=== PATIENT | female | born 1950 | race Caucasian/White ===

== ENCOUNTER → 2020-03-24 08:31 | Outpatient (CLI) | payer MEDICARE, SELFPAY ==
[2020-03-24 10:25] LABS: Hemoglobin A1C% w Est Avg Glu 7.6 % (4.0-6.0)
[2020-03-24 10:38] LABS: Alanine Aminotransferase 17 IU/L (<35); Albumin 4.4 g/dL (3.5-5.0); Albumin Globulin Ratio 1.6 (1.0-2.8); Alkaline Phosphatase 91 U/L (38-126); Aspartate Aminotransferase 20 IU/L (14-36); BUN Creatinine Ratio 27.8 (6-22); Bilirubin Total 0.3 mg/dL (0.2-1.3); Blood Urea Nitrogen 15 mg/dL (7-17); Calcium 9.5 mg/dL (8.4-10.2); Carbon Dioxide 22 mmol/L (22-32); Chloride 104 mmol/L (98-107); Cholesterol 159 mg/dL (140-199); Estimated Glomerular Filt Rate > 60.0 mL/min (>60); Globulin 2.8 g/dL (1.7-4.1); Glucose 176 mg/dL (80-110); HDL Cholesterol 34 mg/dL (40-60); HEMOLYSIS < 15 (0-50); LDL Cholesterol Calculated 105 mg/dL (<100); Potassium 4.2 mmol/L (3.4-5.1); Sodium 137 mmol/L (137-145); Total Protein 7.2 g/dL (6.3-8.2); Triglycerides 99 mg/dL (35-150)
[2020-03-24 10:52] LABS: Free T4, Direct Thyroxine 1.47 ng/dL (0.78-2.19)
[2020-03-24 11:05] LABS: Thyroid Stimulating Hormone 3.85 uIU/mL (0.47-4.68)
[2020-03-24 23:07] LABS: Triiodothyronine T3 Total 72 ng/dL (71-180)
== END ==
PROVIDERS: Referring Provider Internal Medicine; Visit Provider Internal Medicine
DX: E11.9 Type 2 diabetes mellitus without complications (principal); E66.9 Obesity, unspecified; E03.9 Hypothyroidism, unspecified
CPT/HCPCS: 36415; 80053; 80061; 83036; 84439; 84443; 84480

== ENCOUNTER → 2020-04-04 11:36 | Outpatient (CLI) | payer MEDICARE, SELFPAY ==
--- NOTE | 2020-04-04 11:39 | DI.RAD.S_ITS ---
PROCEDURE: XR HIP W PEL IF DONE LT MIN 4V INDICATIONS: low back pain, bilateral hip pain TECHNIQUE: AP pelvis with lateral view(s) of the right and left hip(s). COMPARISON: None. FINDINGS: Bones: No fractures or dislocations. Pelvic ring appears intact. No suspicious bony lesions. Mild osseous hypertrophy noted in the hips bilaterally. Soft tissues: The visualized bowel gas pattern is normal. No suspicious soft tissue calcifications. IMPRESSION: Mild bilateral hip osteoarthritis. Dictated by: Keeley Ash MD, PhD on 04/04/2020 at 16:50 Approved by: Keeley Ash MD, PhD on 04/04/2020 at 16:51
--- NOTE | 2020-04-04 11:39 | DI.RAD.S_ITS ---
PROCEDURE: XR LUMBAR SPINE 2-3V INDICATIONS: LOW BACK PAIN, BILATERAL HIP PAIN TECHNIQUE: 3 views of the lumbar spine were acquired. COMPARISON: None. FINDINGS: Bones: 5 [id number] vertebrae are present. There is grade 1 L4-L5 degenerative anterolisthesis. No vertebral body compression fractures. No suspicious bony lesions. Moderate L5-S1 degenerative changes. Mild L1-L2, L2-L3, through L4 and L4-L5 degenerative changes. Moderate L3-L4, L4-L5 and L5-S1 facet arthropathy. Soft tissues: Overlying bowel gas pattern is normal. No suspicious soft tissue calcifications. IMPRESSION: 1. Grade 1 L4-L5 degenerative spondylolisthesis. 2. Multilevel degenerative disease. 3. Multilevel facet arthropathy. 4. No fracture. No acute osseous lesion. If symptoms and/or clinical suspicion for pathology persists, evaluation with MRI may be helpful for further assessment. Dictated by: Keeley Ash MD, PhD on 04/04/2020 at 16:51 Approved by: Keeley Ash MD, PhD on 04/04/2020 at 16:52
== END ==
PROVIDERS: Referring Provider Internal Medicine; Visit Provider Internal Medicine
DX: M54.5 Low back pain (principal); M25.551 Pain in right hip; M25.552 Pain in left hip; M16.0 Bilateral primary osteoarthritis of hip; M43.16 Spondylolisthesis, lumbar region; M51.36 Other intervertebral disc degeneration, lumbar region; M47.816 Spondylosis without myelopathy or radiculopathy, lumbar region; M47.817 Spondylosis without myelopathy or radiculopathy, lumbosacral region
CPT/HCPCS: 72100; 73522

== ENCOUNTER → 2020-06-16 13:02 | Outpatient (CLI) | payer MEDICARE, SELFPAY ==
[2020-06-16 14:43] LABS: Hemoglobin A1C% w Est Avg Glu 7.8 % (4.0-6.0)
[2020-06-16 15:04] LABS: Alanine Aminotransferase 18 IU/L (<35); Albumin 4.1 g/dL (3.5-5.0); Albumin Globulin Ratio 1.6 (1.0-2.8); Alkaline Phosphatase 96 U/L (38-126); Aspartate Aminotransferase 19 IU/L (14-36); BUN Creatinine Ratio 20.8 (6-22); Bilirubin Total 0.5 mg/dL (0.2-1.3); Blood Urea Nitrogen 15 mg/dL (7-17); Calcium 9.3 mg/dL (8.4-10.2); Carbon Dioxide 25 mmol/L (22-32); Chloride 103 mmol/L (98-107); Cholesterol 153 mg/dL (140-199); Estimated Glomerular Filt Rate > 60.0 mL/min (>60); Globulin 2.5 g/dL (1.7-4.1); Glucose 226 mg/dL (80-110); HDL Cholesterol 48 mg/dL (40-60); HEMOLYSIS < 15 (0-50); LDL Cholesterol Calculated 75 mg/dL (<100); Potassium 4.3 mmol/L (3.4-5.1); Sodium 138 mmol/L (137-145); Total Protein 6.6 g/dL (6.3-8.2); Triglycerides 148 mg/dL (35-150)
[2020-06-16 15:12] LABS: Free T4, Direct Thyroxine 1.29 ng/dL (0.78-2.19)
[2020-06-16 15:26] LABS: Thyroid Stimulating Hormone 1.99 uIU/mL (0.47-4.68)
[2020-06-17 07:13] LABS: Triiodothyronine T3 Total 61 ng/dL (71-180)
== END ==
PROVIDERS: PCP Internal Medicine; Referring Provider Internal Medicine; Visit Provider Internal Medicine
DX: E66.9 Obesity, unspecified (principal); E03.9 Hypothyroidism, unspecified; E11.9 Type 2 diabetes mellitus without complications
CPT/HCPCS: 36415; 80053; 80061; 83036; 84439; 84443; 84480

== ENCOUNTER → 2020-06-30 13:07 | Outpatient (CLI) | payer MEDICARE, SELFPAY | PROVIDERS: PCP Internal Medicine; Referring Provider Internal Medicine; Visit Provider Internal Medicine | DX: M85.88 Other specified disorders of bone density and structure, other site (principal); Z78.0 Asymptomatic menopausal state; E11.9 Type 2 diabetes mellitus without complications | CPT/HCPCS: 77080 ==

== ENCOUNTER → 2020-08-16 13:47 | Outpatient (CLI) | payer MEDICARE, SELFPAY ==
[2020-08-16 15:12] LABS: Microalbumin Urine Random < 0.6 mg/dL (0-1.6)
[2020-08-16 15:16] LABS: Creatinine Urine Random 41.7 mg/dL
== END ==
PROVIDERS: PCP Internal Medicine; Referring Provider Internal Medicine; Visit Provider Internal Medicine
DX: E11.9 Type 2 diabetes mellitus without complications (principal)
CPT/HCPCS: 82043; 82570

== ENCOUNTER 2020-09-01 11:15 | Outpatient (RCR) | payer MEDICARE, SELFPAY ==
--- NOTE | 2020-05-30 17:55 | PT.OIE ---
Current Diagnoses Pain in unspecified hip (05/30/20) Stiffness of unspecified hip, not elsewhere classified (05/30/20) Low back pain (05/30/20) Muscle weakness (generalized) (05/30/20) Visit Care Team Role Provider Type Gregg Hawthorne MD Attending Provider Physician Primary Care Provider Referring Provider Specialty: Wound Care Address: [address] [place] [address], [id number] Email: [email or web address] Initial Evaluation PT-OP-A Visit Information Start: 05/30/20 16:19 Freq: Status: Active Protocol: Document 05/30/20 12:15 DCW (Rec: 05/30/20 16:45 DCW [id number]) Out-Patient Physical Therapy Visit Information Visit Information Visit Type Initial Evaluation Visit Start Time 12:15 Visit Stop Time 12:45 Total Visit Minutes 30 Visit Number 1 Number of MILLER WOOD [employer]OUR Visits 0 Evaluation Information Evaluation Date 05/30/20 PT-OP-B Current Condition Start: 05/30/20 16:19 Freq: Status: Active Protocol: Document 05/30/20 12:15 DCW (Rec: 05/30/20 16:45 DCW [id number]) Current Condition History of Current Condition Onset Date Multi-year history, worsening in last year Current Complaints hip and low back pain, stiffness, muscle tightness History of Current Condition Pt is a 70 year old female presenting to skilled therapy with a multi-year history of low back and bilateral hip pain. Pt notes that over the last year, her pain has been worsening, she feels it mainly along the iliac crest along my back, and occasionally radiating down my legs. Reports her hip muscles had been really tight, but reports that about three weeks ago, so started a new medication from her doctor, which she can't remember the name of, and he told her that it was to help her muscles relax, but after researching it on her own, she found that it blocks pain receptors in the brain. Since starting this medication, she has been doing a lot better, but still experiences a lot of tightness in her muscles and stiffness in her hips. Pt reports that she typically has to take a break after walking 25 minutes, she feels like I need to just stop and stretch out if I go any longer than that. Pt also notes that she was diagnosed with a leg length discrepancy, reporting her left leg is shorter than her right. Pt was given orthortics to lift her left heel, but she feels that they are wearing down, and she is hoping she can get a new pair. Prior Treatments and Tests Lumbar X-ray:IMPRESSION: 1. Grade 1 L4-L5 degenerative spondylolisthesis. 2. Multilevel degenerative disease. 3. Multilevel facet arthropathy. 4. No fracture. No acute osseous lesion. If symptoms and/or clinical suspicion for pathology persists, evaluation with MRI may be helpful for further assessment. Per Keeley Ash MD, PhD on 04/04/2020 Hip x-ray: IMPRESSION: Mild bilateral hip osteoarthritis. Per Keeley Ash MD, PhD on 04/04/2020 Treatment Goals Patient/Caregiver Goals I want to get back to walking more. I use to go for a walk with my dog, and could walk 2- 3 hours without resting. Now, this was 10-15 years ago, so I don't think I'll get fully back to that, but more than the 25 minutes I can do right now. PT-OP-C Subjective Start: 05/30/20 16:19 Freq: Status: Active Protocol: Document 05/30/20 12:15 DCW (Rec: 05/30/20 16:45 DCW [id number]) OP-PT Subjective Patient Comments Patient Comments This new medication has been pretty helpful, I'm just worried that if it is blocking the pain signals to my brain, it's bad for me. Don't we need some pain signals? Patient Reported Progress Improving Patient Questionnaires Lower Extremity Functional Scale LEFS Score 43/80 = 53.75% OP-PT Pain Assessment Pain Assessment Grid Paper Pain Assessment Grid Completed Yes: multiple locations, see chart PT-OP-F Manual Assessment Start: 05/30/20 16:19 Freq: Status: Active Protocol: Document 05/30/20 12:15 DCW (Rec: 05/30/20 16:45 DCW [id number]) Manual Assessments Soft Tissue Assessment Soft Tissue Mobility Assessment Severe hypertonia with tenderness to palpation 4/4: Palpation not allowed: Bilateral ITB Moderate hypertonia with tenderness to palpation 3/4: Wincing and withdraw: Right QL , bilateral psoas Moderate hypertonia with tenderness to palpation 2/4: pain with wincing: Left QL, bilateral piriformis, bilateral lumbar paraspinals Joint Mobility Assessment Joint Mobility Assessment PROM of hip WNL, PT-OP-J Posture/Palpation/Skin Start: 05/30/20 16:19 Freq: Status: Active Protocol: Document 05/30/20 12:15 DCW (Rec: 05/30/20 16:45 DCW [id number]) Posture Evaluation Comments Posture Comments Left leg length, ASIS to Medial malleolus: 87 cm Right leg length, ASIS to Medial malleolus: 90 cm PT-OP-L Special Tests Start: 05/30/20 16:19 Freq: Status: Active Protocol: Document 05/30/20 12:15 DCW (Rec: 05/30/20 16:45 DCW [id number]) Special Tests Lumbar Spine Special Tests IGOR Test Results Positive left ipsilateral anterior hip pain Straight Leg Raise Test Results HS tightness at 50? bilateral Hip Special Tests Piriformis Test Results Positive bilaterally Navya's test Test Results Positive bilaterally PT-OP-M Strength Start: 05/30/20 16:19 Freq: Status: Active Protocol: Document 05/30/20 12:15 DCW (Rec: 05/30/20 17:54 DCW [id number]) Hip Strength Hip Manual Muscle Testing Right Flexion (L2) 5 Normal Extension (S1) 4 Good Abduction 5 Normal Adduction 5 Normal Left Flexion (L2) 5 Normal Extension (S1) 4 Good Abduction 5 Normal Adduction 5 Normal Knee Strength Knee Manual Muscle Testing Right Flexion (S2) 5 Normal Extension (L3) 5 Normal Left Flexion (S2) 5 Normal Extension (L3) 5 Normal PT-OP-Q Treatments Start: 05/30/20 16:19 Freq: Status: Active Protocol: Document 05/30/20 12:15 DCW (Rec: 05/30/20 17:54 DCW [id number]) Self-Care/Home Management Treatment Education Patient Education Home Exercise Program Other Education Provide demonstration and hand -out regarding Piriformis stretch for HEP PT-OP-T Assessment and Plan Start: 05/30/20 16:19 Freq: Status: Active Protocol: Document 05/30/20 12:15 DCW (Rec: 05/30/20 17:54 DCW [id number]) Physical Therapy Assessment Rehab Potential Rehabilitation Potential Excellent Evaluation Complexity Number of Personal Factors/Comorbidities 1-2 Number of Body Systems Impaired 1-2 Clinical Presentation at Evaluation Stable Impairments Impairments Activity Tolerance,Functional Activities,Pain,Posture,ROM, Soft Tissue Mobility,Strength Goals Three Impairment Hip stiffness: SLR limited to 50? Social Media Campaign Manager Goal (LTG) SLR to >80? bilaterally with no low back pain LTG Duration 07/30/20 Two Impairment Pt exhibits signs of lower cross syndrome Social Media Campaign Manager Goal (LTG) Lower cross syndrome is more an pattern of symptoms ( hypertonia in hip flexors/ lumbar paraspinals, weakness in core/hip extensors). Pt will exhibit 4+/5 in hip fextensors and TrA. Pt will additionally demonstrate a decrease in muscle tone of psoas to mild levels LTG Duration 07/30/20 One Impairment Pt does not have an appropriate home exercise program Short Term Goal (STG) Pt to be independent and compliant with an appropriate HEP STG Duration 06/30/20 Assessment Summary Assessment Pt presents with stiffness in her hips and low back, seemingly as a result of protective spasming secondary to the degenerative changes in her lumbar spine. 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 Pt also exhibits signs of a leg length discrepancy, and may require a new lift in her left shoe, due to wearing down of her previous orthotic. Physical Therapy Plan Frequency and Duration Frequency of Treatment 2x/Week Duration of Treatment 10 weeks Plan of Care Start Date 05/30/20 Plan of Care End Date 08/08/20 Therapeutic Interventions Therapeutic Interventions Home Exercise Program,Joint Mobilizations,Manual Therapy, Patient/Caregiver Education, Self-Care/Home Management,Soft Tissue Mobilization, Therapeutic Activities, Therapeutic Exercises Modalities Cold Pack/Ice Massage,Electric Stimulation,Hot Packs, Ultrasound Next Visit Focus/Plan Next Note Type Treatment Note Next Visit Plan Flexibility, strengthening, Manual therapy
--- NOTE | 2020-05-30 17:55 | PT.OPPOC ---
Physical, Occupational & Speech Therapy At [facility] Current Diagnoses Pain in unspecified hip (05/30/20) Stiffness of unspecified hip, not elsewhere classified (05/30/20) Low back pain (05/30/20) Muscle weakness (generalized) (05/30/20) Visit Care Team Role Provider Type Gregg Hawthorne MD Attending Provider Physician Primary Care Provider Referring Provider Specialty: Wound Care Address: [address] [place] [address], [id number] Email: [email or web address]) Plan Of Care PT-OP-T Assessment and Plan Start: 05/30/20 16:19 Freq: Status: Active Protocol: Document 05/30/20 12:15 DCW (Rec: 05/30/20 17:54 DCW [id number]) Physical Therapy Assessment Rehab Potential Rehabilitation Potential Excellent Evaluation Complexity Number of Personal Factors/Comorbidities 1-2 Number of Body Systems Impaired 1-2 Clinical Presentation at Evaluation Stable Impairments Impairments Activity Tolerance,Functional Activities,Pain,Posture,ROM, Soft Tissue Mobility,Strength Goals Three Impairment Hip stiffness: SLR limited to 50? Stitch Separator Goal (LTG) SLR to >80? bilaterally with no low back pain LTG Duration 07/30/20 Two Impairment Pt exhibits signs of lower cross syndrome Group Home Goal (LTG) Lower cross syndrome is more an pattern of symptoms ( hypertonia in hip flexors/ lumbar paraspinals, weakness in core/hip extensors). Pt will exhibit 4+/5 in hip fextensors and TrA. Pt will additionally demonstrate a decrease in muscle tone of psoas to mild levels LTG Duration 07/30/20 One Impairment Pt does not have an appropriate home exercise program Short Term Goal (STG) Pt to be independent and compliant with an appropriate HEP STG Duration 06/30/20 Assessment Summary Assessment Pt presents with stiffness in her hips and low back, seemingly as a result of protective spasming secondary to the degenerative changes in her lumbar spine. 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 Pt also exhibits signs of a leg length discrepancy, and may require a new lift in her left shoe, due to wearing down of her previous orthotic. Physical Therapy Plan Frequency and Duration Frequency of Treatment 2x/Week Duration of Treatment 10 weeks Plan of Care Start Date 05/30/20 Plan of Care End Date 08/08/20 Therapeutic Interventions Therapeutic Interventions Home Exercise Program,Joint Mobilizations,Manual Therapy, Patient/Caregiver Education, Self-Care/Home Management,Soft Tissue Mobilization, Therapeutic Activities, Therapeutic Exercises Modalities Cold Pack/Ice Massage,Electric Stimulation,Hot Packs, Ultrasound Next Visit Focus/Plan Next Note Type Treatment Note Next Visit Plan Flexibility, strengthening, Manual therapy Plan of Care Dates Plan of Care Start Date 05/30/20 Plan of Care End Date 08/08/20 Electronically Signed by: Car Thomas, PT 05/30/20 [id number] Please Sign and Return: I have reviewed this Plan of Care and certify that the skilled therapy services above are required to meet the patient?s needs. Physician Signature Date Printed Name and Credentials Clinical Instructor Signature Printed Name and Credentials
--- NOTE | 2020-06-01 12:09 | PT.OTN ---
Current Diagnoses Pain in unspecified hip (06/01/20) Stiffness of unspecified hip, not elsewhere classified (06/01/20) Low back pain (06/01/20) Muscle weakness (generalized) (06/01/20) Physical Therapy Treatment Note PT-OP-A Visit Information Start: 05/30/20 16:19 Freq: Status: Active Protocol: Document 06/01/20 11:15 DCW (Rec: 06/01/20 12:09 DCW [id number]) Out-Patient Physical Therapy Visit Information Visit Information Visit Type Treatment Note Visit Start Time 11:15 Visit Stop Time 12:00 Total Visit Minutes 45 Visit Number 2 Number of JAVA CONSULTANT Visits 0 Evaluation Information Evaluation Date 05/30/20 PT-OP-B Current Condition Start: 05/30/20 16:19 Freq: Status: Active Protocol: Document 05/30/20 12:15 DCW (Rec: 05/30/20 16:45 DCW [id number]) Current Condition History of Current Condition Onset Date Multi-year history, worsening in last year Current Complaints hip and low back pain, stiffness, muscle tightness History of Current Condition Pt is a 70 year old female presenting to skilled therapy with a multi-year history of low back and bilateral hip pain. Pt notes that over the last year, her pain has been worsening, she feels it mainly along the iliac crest along my back, and occasionally radiating down my legs. Reports her hip muscles had been really tight, but reports that about three weeks ago, so started a new medication from her doctor, which she can't remember the name of, and he told her that it was to help her muscles relax, but after researching it on her own, she found that it blocks pain receptors in the brain. Since starting this medication, she has been doing a lot better, but still experiences a lot of tightness in her muscles and stiffness in her hips. Pt reports that she typically has to take a break after walking 25 minutes, she feels like I need to just stop and stretch out if I go any longer than that. Pt also notes that she was diagnosed with a leg length discrepancy, reporting her left leg is shorter than her right. Pt was given orthortics to lift her left heel, but she feels that they are wearing down, and she is hoping she can get a new pair. Prior Treatments and Tests Lumbar X-ray:IMPRESSION: 1. Grade 1 L4-L5 degenerative spondylolisthesis. 2. Multilevel degenerative disease. 3. Multilevel facet arthropathy. 4. No fracture. No acute osseous lesion. If symptoms and/or clinical suspicion for pathology persists, evaluation with MRI may be helpful for further assessment. Jose Ash MD, PhD on 04/04/2020 Hip x-ray: IMPRESSION: Mild bilateral hip osteoarthritis. Per Keeley Ash MD, PhD on 04/04/2020 Treatment Goals Patient/Caregiver Goals I want to get back to walking more. I use to go for a walk with my dog, and could walk 2- 3 hours without resting. Now, this was 10-15 years ago, so I don't think I'll get fully back to that, but more than the 25 minutes I can do right now. PT-OP-C Subjective Start: 05/30/20 16:19 Freq: Status: Active Protocol: Document 06/01/20 11:15 DCW (Rec: 06/01/20 12:09 DCW [id number]) OP-PT Subjective Patient Comments Patient Comments Pt reports she did well stretching yesterday, but noticed some right leg soreness when trying to do it this morning. PT-OP-F Manual Assessment Start: 05/30/20 16:19 Freq: Status: Active Protocol: Document 05/30/20 12:15 DCW (Rec: 05/30/20 16:45 DCW [id number]) Manual Assessments Soft Tissue Assessment Soft Tissue Mobility Assessment Severe hypertonia with tenderness to palpation 4/4: Palpation not allowed: Bilateral ITB Moderate hypertonia with tenderness to palpation 3/4: Wincing and withdraw: Right QL , bilateral psoas Moderate hypertonia with tenderness to palpation 2/4: pain with wincing: Left QL, bilateral piriformis, bilateral lumbar paraspinals Joint Mobility Assessment Joint Mobility Assessment PROM of hip WNL, PT-OP-J Posture/Palpation/Skin Start: 05/30/20 16:19 Freq: Status: Active Protocol: Document 05/30/20 12:15 DCW (Rec: 05/30/20 16:45 DCW [id number]) Posture Evaluation Comments Posture Comments Left leg length, ASIS to Medial malleolus: 87 cm Right leg length, ASIS to Medial malleolus: 90 cm PT-OP-L Special Tests Start: 05/30/20 16:19 Freq: Status: Active Protocol: Document 05/30/20 12:15 DCW (Rec: 05/30/20 16:45 DCW [id number]) Special Tests Lumbar Spine Special Tests IGOR Test Results Positive left ipsilateral anterior hip pain Straight Leg Raise Test Results HS tightness at 50? bilateral Hip Special Tests Piriformis Test Results Positive bilaterally Navya's test Test Results Positive bilaterally PT-OP-M Strength Start: 05/30/20 16:19 Freq: Status: Active Protocol: Document 05/30/20 12:15 DCW (Rec: 05/30/20 17:54 DCW [id number]) Hip Strength Hip Manual Muscle Testing Right Flexion (L2) 5 Normal Extension (S1) 4 Good Abduction 5 Normal Adduction 5 Normal Left Flexion (L2) 5 Normal Extension (S1) 4 Good Abduction 5 Normal Adduction 5 Normal Knee Strength Knee Manual Muscle Testing Right Flexion (S2) 5 Normal Extension (L3) 5 Normal Left Flexion (S2) 5 Normal Extension (L3) 5 Normal PT-OP-Q Treatments Start: 05/30/20 16:19 Freq: Status: Active Protocol: Document 06/01/20 11:15 DCW (Rec: 06/01/20 12:09 DCW [id number]) Cardio Equipment Recumbent Elliptical (Comuto) Duration (Minutes) 5 Resistance 4 Seat Position 11 Gym Equipment Shuttle Recovery Unilateral Squats Resistance 62# Shuttle Recovery Platform Stable Reps/Time x20 Bilateral Squats Resistance 112# Shuttle Recovery Platform Stable Reps/Time x20 Therapeutic Exercises Supine Exercises 3 Supine Exercise Name Psoas Side bilateral 2 Supine Exercise Name Piriformis stretch Side bilateral 1 Supine Exercise Name HS stretch Side bilateral Manual Therapy Treatment Soft Tissue Mobilization 2 Body Location Piriformis Mobilization Type Strumming,Sustained Pressure Intensity/Depth Moderate Body Position Sidelying 1 Body Location Psoas Mobilization Type Sustained Pressure Intensity/Depth Superficial Body Position Supine PT-OP-T Assessment and Plan Start: 05/30/20 16:19 Freq: Status: Active Protocol: Document 06/01/20 11:15 DCW (Rec: 06/01/20 12:09 DCW [id number]) Physical Therapy Assessment Impairments Impairments Activity Tolerance,Functional Activities,Pain,Posture,ROM, Soft Tissue Mobility,Strength Goals Three Impairment Hip stiffness: SLR limited to 50? Asbestos Handler Goal (LTG) SLR to >80? bilaterally with no low back pain LTG Duration 07/30/20 Two Impairment Pt exhibits signs of lower cross syndrome Longterm Goal (LTG) Lower cross syndrome is more an pattern of symptoms ( hypertonia in hip flexors/ lumbar paraspinals, weakness in core/hip extensors). Pt will exhibit 4+/5 in hip fextensors and TrA. Pt will additionally demonstrate a decrease in muscle tone of psoas to mild levels LTG Duration 07/30/20 One Impairment Pt does not have an appropriate home exercise program Short Term Goal (STG) Pt to be independent and compliant with an appropriate HEP STG Duration 06/30/20 Assessment Summary Assessment Pt tender to palpation with manual therapy today, able to tolerate it but admitted I'll probably be sore tomorrow. Pt reports she will be compliant with her HEP. Physical Therapy Plan Frequency and Duration Frequency of Treatment 2x/Week Duration of Treatment 10 weeks Plan of Care Start Date 05/30/20 Plan of Care End Date 08/08/20 Therapeutic Interventions Therapeutic Interventions Home Exercise Program,Joint Mobilizations,Manual Therapy, Patient/Caregiver Education, Self-Care/Home Management,Soft Tissue Mobilization, Therapeutic Activities, Therapeutic Exercises Modalities Cold Pack/Ice Massage,Electric Stimulation,Hot Packs, Ultrasound Next Visit Focus/Plan Next Note Type Treatment Note Next Visit Plan Flexibility, strengthening, Manual therapy
--- NOTE | 2020-06-06 12:03 | PT.OTN ---
Current Diagnoses Pain in unspecified hip (06/06/20) Stiffness of unspecified hip, not elsewhere classified (06/06/20) Low back pain (06/06/20) Muscle weakness (generalized) (06/06/20) Physical Therapy Treatment Note PT-OP-A Visit Information Start: 05/30/20 16:19 Freq: Status: Active Protocol: Document 06/06/20 11:21 DCW (Rec: 06/06/20 12:03 DCW [id number]) Out-Patient Physical Therapy Visit Information Visit Information Visit Type Treatment Note Visit Note 6 min late Visit Start Time 11:21 Visit Stop Time 12:00 Total Visit Minutes 39 Visit Number 3 Number of APIARIST Visits 0 Evaluation Information Evaluation Date 05/30/20 PT-OP-B Current Condition Start: 05/30/20 16:19 Freq: Status: Active Protocol: Document 05/30/20 12:15 DCW (Rec: 05/30/20 16:45 DCW [id number]) Current Condition History of Current Condition Onset Date Multi-year history, worsening in last year Current Complaints hip and low back pain, stiffness, muscle tightness History of Current Condition Pt is a 70 year old female presenting to skilled therapy with a multi-year history of low back and bilateral hip pain. Pt notes that over the last year, her pain has been worsening, she feels it mainly along the iliac crest along my back, and occasionally radiating down my legs. Reports her hip muscles had been really tight, but reports that about three weeks ago, so started a new medication from her doctor, which she can't remember the name of, and he told her that it was to help her muscles relax, but after researching it on her own, she found that it blocks pain receptors in the brain. Since starting this medication, she has been doing a lot better, but still experiences a lot of tightness in her muscles and stiffness in her hips. Pt reports that she typically has to take a break after walking 25 minutes, she feels like I need to just stop and stretch out if I go any longer than that. Pt also notes that she was diagnosed with a leg length discrepancy, reporting her left leg is shorter than her right. Pt was given orthortics to lift her left heel, but she feels that they are wearing down, and she is hoping she can get a new pair. Prior Treatments and Tests Lumbar X-ray:IMPRESSION: 1. Grade 1 L4-L5 degenerative spondylolisthesis. 2. Multilevel degenerative disease. 3. Multilevel facet arthropathy. 4. No fracture. No acute osseous lesion. If symptoms and/or clinical suspicion for pathology persists, evaluation with MRI may be helpful for further assessment. Per Keeley Ash MD, PhD on 04/04/2020 Hip x-ray: IMPRESSION: Mild bilateral hip osteoarthritis. Per Keeley Ash MD, PhD on 04/04/2020 Treatment Goals Patient/Caregiver Goals I want to get back to walking more. I use to go for a walk with my dog, and could walk 2- 3 hours without resting. Now, this was 10-15 years ago, so I don't think I'll get fully back to that, but more than the 25 minutes I can do right now. PT-OP-C Subjective Start: 05/30/20 16:19 Freq: Status: Active Protocol: Document 06/06/20 11:21 DCW (Rec: 06/06/20 12:03 DCW [id number]) OP-PT Subjective Patient Comments Patient Comments There's some pain along the back of my iliac crest, and some around my bursitis. I think that's all there is, at least that's all I'm thinking about right now. PT-OP-F Manual Assessment Start: 05/30/20 16:19 Freq: Status: Active Protocol: Document 05/30/20 12:15 DCW (Rec: 05/30/20 16:45 DCW [id number]) Manual Assessments Soft Tissue Assessment Soft Tissue Mobility Assessment Severe hypertonia with tenderness to palpation 4/4: Palpation not allowed: Bilateral ITB Moderate hypertonia with tenderness to palpation 3/4: Wincing and withdraw: Right QL , bilateral psoas Moderate hypertonia with tenderness to palpation 2/4: pain with wincing: Left QL, bilateral piriformis, bilateral lumbar paraspinals Joint Mobility Assessment Joint Mobility Assessment PROM of hip WNL, PT-OP-J Posture/Palpation/Skin Start: 05/30/20 16:19 Freq: Status: Active Protocol: Document 05/30/20 12:15 DCW (Rec: 05/30/20 16:45 DCW [id number]) Posture Evaluation Comments Posture Comments Left leg length, ASIS to Medial malleolus: 87 cm Right leg length, ASIS to Medial malleolus: 90 cm PT-OP-L Special Tests Start: 05/30/20 16:19 Freq: Status: Active Protocol: Document 05/30/20 12:15 DCW (Rec: 05/30/20 16:45 DCW [id number]) Special Tests Lumbar Spine Special Tests IGOR Test Results Positive left ipsilateral anterior hip pain Straight Leg Raise Test Results HS tightness at 50? bilateral Hip Special Tests Piriformis Test Results Positive bilaterally Navya's test Test Results Positive bilaterally PT-OP-M Strength Start: 05/30/20 16:19 Freq: Status: Active Protocol: Document 05/30/20 12:15 DCW (Rec: 05/30/20 17:54 DCW [id number]) Hip Strength Hip Manual Muscle Testing Right Flexion (L2) 5 Normal Extension (S1) 4 Good Abduction 5 Normal Adduction 5 Normal Left Flexion (L2) 5 Normal Extension (S1) 4 Good Abduction 5 Normal Adduction 5 Normal Knee Strength Knee Manual Muscle Testing Right Flexion (S2) 5 Normal Extension (L3) 5 Normal Left Flexion (S2) 5 Normal Extension (L3) 5 Normal PT-OP-Q Treatments Start: 05/30/20 16:19 Freq: Status: Active Protocol: Document 06/06/20 11:21 DCW (Rec: 06/06/20 12:03 DCW [id number]) Cardio Equipment Recumbent Elliptical (BiodIntroBridge) Duration (Minutes) 5 Resistance 4 Seat Position 11 Gym Equipment Shuttle Balance Red Details WBOS, Staggered Therapeutic Exercises Other Exercises 1 Other Exercise Name Resisted Ambulation Resistance Yellow Equipment Used T-band Comments Lateral, Fwd, Bkwd Manual Therapy Treatment Soft Tissue Mobilization 3 Body Location ITB Mobilization Type Strumming Intensity/Depth Moderate Body Position Hooklying 2 Body Location Piriformis Mobilization Type Strumming,Sustained Pressure Intensity/Depth Moderate Body Position Sidelying 1 Body Location Psoas Mobilization Type Sustained Pressure Intensity/Depth Superficial Body Position Supine PT-OP-T Assessment and Plan Start: 05/30/20 16:19 Freq: Status: Active Protocol: Document 06/06/20 11:21 DCW (Rec: 06/06/20 12:03 DCW [id number]) Physical Therapy Assessment Impairments Impairments Activity Tolerance,Functional Activities,Pain,Posture,ROM, Soft Tissue Mobility,Strength Goals Three Impairment Hip stiffness: SLR limited to 50? Rn Concurrent Review Goal (LTG) SLR to >80? bilaterally with no low back pain LTG Duration 07/30/20 Two Impairment Pt exhibits signs of lower cross syndrome Prison Goal (LTG) Lower cross syndrome is more an pattern of symptoms ( hypertonia in hip flexors/ lumbar paraspinals, weakness in core/hip extensors). Pt will exhibit 4+/5 in hip fextensors and TrA. Pt will additionally demonstrate a decrease in muscle tone of psoas to mild levels LTG Duration 07/30/20 One Impairment Pt does not have an appropriate home exercise program Short Term Goal (STG) Pt to be independent and compliant with an appropriate HEP STG Duration 06/30/20 Assessment Summary Assessment Pt displaying decreased hip flexor tone today, still complains of tenderness in ITB and bilateral bursa. Physical Therapy Plan Frequency and Duration Frequency of Treatment 2x/Week Duration of Treatment 10 weeks Plan of Care Start Date 05/30/20 Plan of Care End Date 08/08/20 Therapeutic Interventions Therapeutic Interventions Home Exercise Program,Joint Mobilizations,Manual Therapy, Patient/Caregiver Education, Self-Care/Home Management,Soft Tissue Mobilization, Therapeutic Activities, Therapeutic Exercises Modalities Cold Pack/Ice Massage,Electric Stimulation,Hot Packs, Ultrasound Next Visit Focus/Plan Next Note Type Treatment Note Next Visit Plan Flexibility, strengthening, Manual therapy
--- NOTE | 2020-06-08 12:04 | PT.OTN ---
Current Diagnoses Pain in unspecified hip (06/08/20) Stiffness of unspecified hip, not elsewhere classified (06/08/20) Low back pain (06/08/20) Muscle weakness (generalized) (06/08/20) Physical Therapy Treatment Note PT-OP-A Visit Information Start: 05/30/20 16:19 Freq: Status: Active Protocol: Document 06/08/20 11:15 DCW (Rec: 06/08/20 12:03 DCW [id number]) Out-Patient Physical Therapy Visit Information Visit Information Visit Type Treatment Note Visit Start Time 11:15 Visit Stop Time 12:00 Total Visit Minutes 45 Visit Number 4 Number of CATTLE PRODUCERS Visits 0 Evaluation Information Evaluation Date 05/30/20 PT-OP-B Current Condition Start: 05/30/20 16:19 Freq: Status: Active Protocol: Document 05/30/20 12:15 DCW (Rec: 05/30/20 16:45 DCW [id number]) Current Condition History of Current Condition Onset Date Multi-year history, worsening in last year Current Complaints hip and low back pain, stiffness, muscle tightness History of Current Condition Pt is a 70 year old female presenting to skilled therapy with a multi-year history of low back and bilateral hip pain. Pt notes that over the last year, her pain has been worsening, she feels it mainly along the iliac crest along my back, and occasionally radiating down my legs. Reports her hip muscles had been really tight, but reports that about three weeks ago, so started a new medication from her doctor, which she can't remember the name of, and he told her that it was to help her muscles relax, but after researching it on her own, she found that it blocks pain receptors in the brain. Since starting this medication, she has been doing a lot better, but still experiences a lot of tightness in her muscles and stiffness in her hips. Pt reports that she typically has to take a break after walking 25 minutes, she feels like I need to just stop and stretch out if I go any longer than that. Pt also notes that she was diagnosed with a leg length discrepancy, reporting her left leg is shorter than her right. Pt was given orthortics to lift her left heel, but she feels that they are wearing down, and she is hoping she can get a new pair. Prior Treatments and Tests Lumbar X-ray:IMPRESSION: 1. Grade 1 L4-L5 degenerative spondylolisthesis. 2. Multilevel degenerative disease. 3. Multilevel facet arthropathy. 4. No fracture. No acute osseous lesion. If symptoms and/or clinical suspicion for pathology persists, evaluation with MRI may be helpful for further assessment. Per Keeley Ash MD, PhD on 04/04/2020 Hip x-ray: IMPRESSION: Mild bilateral hip osteoarthritis. Per Keeley Ash MD, PhD on 04/04/2020 Treatment Goals Patient/Caregiver Goals I want to get back to walking more. I use to go for a walk with my dog, and could walk 2- 3 hours without resting. Now, this was 10-15 years ago, so I don't think I'll get fully back to that, but more than the 25 minutes I can do right now. PT-OP-C Subjective Start: 05/30/20 16:19 Freq: Status: Active Protocol: Document 06/08/20 11:15 DCW (Rec: 06/08/20 12:03 DCW [id number]) OP-PT Subjective Patient Comments Patient Comments Pt admits she felt like her back and hips had significantly loosened up when she was leaving her appointment on Saturday. PT-OP-F Manual Assessment Start: 05/30/20 16:19 Freq: Status: Active Protocol: Document 05/30/20 12:15 DCW (Rec: 05/30/20 16:45 DCW [id number]) Manual Assessments Soft Tissue Assessment Soft Tissue Mobility Assessment Severe hypertonia with tenderness to palpation 4/4: Palpation not allowed: Bilateral ITB Moderate hypertonia with tenderness to palpation 3/4: Wincing and withdraw: Right QL , bilateral psoas Moderate hypertonia with tenderness to palpation 2/4: pain with wincing: Left QL, bilateral piriformis, bilateral lumbar paraspinals Joint Mobility Assessment Joint Mobility Assessment PROM of hip WNL, PT-OP-J Posture/Palpation/Skin Start: 05/30/20 16:19 Freq: Status: Active Protocol: Document 05/30/20 12:15 DCW (Rec: 05/30/20 16:45 DCW [id number]) Posture Evaluation Comments Posture Comments Left leg length, ASIS to Medial malleolus: 87 cm Right leg length, ASIS to Medial malleolus: 90 cm PT-OP-L Special Tests Start: 05/30/20 16:19 Freq: Status: Active Protocol: Document 05/30/20 12:15 DCW (Rec: 05/30/20 16:45 DCW [id number]) Special Tests Lumbar Spine Special Tests IGOR Test Results Positive left ipsilateral anterior hip pain Straight Leg Raise Test Results HS tightness at 50? bilateral Hip Special Tests Piriformis Test Results Positive bilaterally Navya's test Test Results Positive bilaterally PT-OP-M Strength Start: 05/30/20 16:19 Freq: Status: Active Protocol: Document 05/30/20 12:15 DCW (Rec: 05/30/20 17:54 DCW [id number]) Hip Strength Hip Manual Muscle Testing Right Flexion (L2) 5 Normal Extension (S1) 4 Good Abduction 5 Normal Adduction 5 Normal Left Flexion (L2) 5 Normal Extension (S1) 4 Good Abduction 5 Normal Adduction 5 Normal Knee Strength Knee Manual Muscle Testing Right Flexion (S2) 5 Normal Extension (L3) 5 Normal Left Flexion (S2) 5 Normal Extension (L3) 5 Normal PT-OP-Q Treatments Start: 05/30/20 16:19 Freq: Status: Active Protocol: Document 06/08/20 11:15 DCW (Rec: 06/08/20 12:03 DCW [id number]) Cardio Equipment Recumbent Elliptical (Lozo) Duration (Minutes) 5 Resistance 5 Seat Position 11 Gym Equipment Shuttle Recovery Unilateral Squats Resistance 62# Shuttle Recovery Platform Stable Reps/Time x20 Bilateral Squats Resistance 112# Shuttle Recovery Platform Stable Reps/Time x20 Shuttle Balance Red Details WBOS, Staggered Manual Therapy Treatment Soft Tissue Mobilization 3 Body Location ITB Mobilization Type Strumming Intensity/Depth Moderate Body Position Hooklying 2 Body Location Piriformis Mobilization Type Strumming,Sustained Pressure Intensity/Depth Moderate Body Position Sidelying 1 Body Location Psoas Mobilization Type Sustained Pressure Intensity/Depth Superficial Body Position Supine PT-OP-T Assessment and Plan Start: 05/30/20 16:19 Freq: Status: Active Protocol: Document 06/08/20 11:15 DCW (Rec: 06/08/20 12:03 DCW [id number]) Physical Therapy Assessment Impairments Impairments Activity Tolerance,Functional Activities,Pain,Posture,ROM, Soft Tissue Mobility,Strength Goals Three Impairment Hip stiffness: SLR limited to 50? Senior Living Goal (LTG) SLR to >80? bilaterally with no low back pain LTG Duration 07/30/20 Two Impairment Pt exhibits signs of lower cross syndrome Applied Marine Physics Professor Goal (LTG) Lower cross syndrome is more an pattern of symptoms ( hypertonia in hip flexors/ lumbar paraspinals, weakness in core/hip extensors). Pt will exhibit 4+/5 in hip fextensors and TrA. Pt will additionally demonstrate a decrease in muscle tone of psoas to mild levels LTG Duration 07/30/20 One Impairment Pt does not have an appropriate home exercise program Short Term Goal (STG) Pt to be independent and compliant with an appropriate HEP STG Duration 06/30/20 Assessment Summary Assessment Pt tolerated treatment well today, doing better with TherEx, still has complaints with tenderness during STM, however more willing to tolerate it since she has seen improvement. Physical Therapy Plan Frequency and Duration Frequency of Treatment 2x/Week Duration of Treatment 10 weeks Plan of Care Start Date 05/30/20 Plan of Care End Date 08/08/20 Therapeutic Interventions Therapeutic Interventions Home Exercise Program,Joint Mobilizations,Manual Therapy, Patient/Caregiver Education, Self-Care/Home Management,Soft Tissue Mobilization, Therapeutic Activities, Therapeutic Exercises Modalities Cold Pack/Ice Massage,Electric Stimulation,Hot Packs, Ultrasound Next Visit Focus/Plan Next Note Type Treatment Note Next Visit Plan Flexibility, strengthening, Manual therapy
--- NOTE | 2020-06-13 14:50 | PT.OTN ---
Current Diagnoses Pain in unspecified hip (06/13/20) Stiffness of unspecified hip, not elsewhere classified (06/13/20) Low back pain (06/13/20) Muscle weakness (generalized) (06/13/20) Physical Therapy Treatment Note PT-OP-A Visit Information Start: 05/30/20 16:19 Freq: Status: Active Protocol: Document 06/13/20 14:19 LRN (Rec: 06/13/20 14:49 LRN [id number]) Out-Patient Physical Therapy Visit Information Visit Information Visit Type Treatment Note Visit Start Time 14:19 Visit Stop Time 14:46 Total Visit Minutes 27 Visit Number 5 Evaluation Information Evaluation Date 05/30/20 PT-OP-B Current Condition Start: 05/30/20 16:19 Freq: Status: Active Protocol: Document 05/30/20 12:15 DCW (Rec: 05/30/20 16:45 DCW [id number]) Current Condition History of Current Condition Onset Date Multi-year history, worsening in last year Current Complaints hip and low back pain, stiffness, muscle tightness History of Current Condition Pt is a 70 year old female presenting to skilled therapy with a multi-year history of low back and bilateral hip pain. Pt notes that over the last year, her pain has been worsening, she feels it mainly along the iliac crest along my back, and occasionally radiating down my legs. Reports her hip muscles had been really tight, but reports that about three weeks ago, so started a new medication from her doctor, which she can't remember the name of, and he told her that it was to help her muscles relax, but after researching it on her own, she found that it blocks pain receptors in the brain. Since starting this medication, she has been doing a lot better, but still experiences a lot of tightness in her muscles and stiffness in her hips. Pt reports that she typically has to take a break after walking 25 minutes, she feels like I need to just stop and stretch out if I go any longer than that. Pt also notes that she was diagnosed with a leg length discrepancy, reporting her left leg is shorter than her right. Pt was given orthortics to lift her left heel, but she feels that they are wearing down, and she is hoping she can get a new pair. Prior Treatments and Tests Lumbar X-ray:IMPRESSION: 1. Grade 1 L4-L5 degenerative spondylolisthesis. 2. Multilevel degenerative disease. 3. Multilevel facet arthropathy. 4. No fracture. No acute osseous lesion. If symptoms and/or clinical suspicion for pathology persists, evaluation with MRI may be helpful for further assessment. Jose Ash MD, PhD on 04/04/2020 Hip x-ray: IMPRESSION: Mild bilateral hip osteoarthritis. Per Keeley Ash MD, PhD on 04/04/2020 Treatment Goals Patient/Caregiver Goals I want to get back to walking more. I use to go for a walk with my dog, and could walk 2- 3 hours without resting. Now, this was 10-15 years ago, so I don't think I'll get fully back to that, but more than the 25 minutes I can do right now. PT-OP-C Subjective Start: 05/30/20 16:19 Freq: Status: Active Protocol: Document 06/13/20 14:19 LRN (Rec: 06/13/20 14:49 LRN [id number]) OP-PT Subjective Patient Comments Patient Comments Not quite as painful in the groin on sit to stand. PT-OP-F Manual Assessment Start: 05/30/20 16:19 Freq: Status: Active Protocol: Document 05/30/20 12:15 DCW (Rec: 05/30/20 16:45 DCW [id number]) Manual Assessments Soft Tissue Assessment Soft Tissue Mobility Assessment Severe hypertonia with tenderness to palpation 4/4: Palpation not allowed: Bilateral ITB Moderate hypertonia with tenderness to palpation 3/4: Wincing and withdraw: Right QL , bilateral psoas Moderate hypertonia with tenderness to palpation 2/4: pain with wincing: Left QL, bilateral piriformis, bilateral lumbar paraspinals Joint Mobility Assessment Joint Mobility Assessment PROM of hip WNL, PT-OP-J Posture/Palpation/Skin Start: 05/30/20 16:19 Freq: Status: Active Protocol: Document 05/30/20 12:15 DCW (Rec: 05/30/20 16:45 DCW [id number]) Posture Evaluation Comments Posture Comments Left leg length, ASIS to Medial malleolus: 87 cm Right leg length, ASIS to Medial malleolus: 90 cm PT-OP-L Special Tests Start: 08/03/20 16:19 Freq: Status: Active Protocol: Document 05/30/20 12:15 DCW (Rec: 05/30/20 16:45 DCW [id number]) Special Tests Lumbar Spine Special Tests IGOR Test Results Positive left ipsilateral anterior hip pain Straight Leg Raise Test Results HS tightness at 50? bilateral Hip Special Tests Piriformis Test Results Positive bilaterally Navya's test Test Results Positive bilaterally PT-OP-M Strength Start: 05/30/20 16:19 Freq: Status: Active Protocol: Document 05/30/20 12:15 DCW (Rec: 05/30/20 17:54 DCW [id number]) Hip Strength Hip Manual Muscle Testing Right Flexion (L2) 5 Normal Extension (S1) 4 Good Abduction 5 Normal Adduction 5 Normal Left Flexion (L2) 5 Normal Extension (S1) 4 Good Abduction 5 Normal Adduction 5 Normal Knee Strength Knee Manual Muscle Testing Right Flexion (S2) 5 Normal Extension (L3) 5 Normal Left Flexion (S2) 5 Normal Extension (L3) 5 Normal PT-OP-Q Treatments Start: 05/30/20 16:19 Freq: Status: Active Protocol: Document 06/13/20 14:19 LRN (Rec: 06/13/20 14:49 LRN [id number]) Cardio Equipment Recumbent Elliptical ([place]) Duration (Minutes) 6 Resistance 5 Seat Position 10 Manual Therapy Treatment Soft Tissue Mobilization 3 Body Location ITB Mobilization Type Strumming Intensity/Depth Moderate Body Position Hooklying 2 Body Location Piriformis Mobilization Type Strumming,Sustained Pressure Intensity/Depth Moderate Body Position Sidelying 1 Body Location Psoas Mobilization Type Sustained Pressure Intensity/Depth Superficial Body Position Supine PT-OP-T Assessment and Plan Start: 05/30/20 16:19 Freq: Status: Active Protocol: Document 06/13/20 14:19 LRN (Rec: 06/13/20 14:49 LRN [id number]) Physical Therapy Assessment Goals Three Impairment Hip stiffness: SLR limited to 50? Real Estate Broker Associate Goal (LTG) SLR to >80? bilaterally with no low back pain LTG Duration 07/30/20 Two Impairment Pt exhibits signs of lower cross syndrome Real Estate Broker Associate Goal (LTG) Lower cross syndrome is more an pattern of symptoms ( hypertonia in hip flexors/ lumbar paraspinals, weakness in core/hip extensors). Pt will exhibit 4+/5 in hip fextensors and TrA. Pt will additionally demonstrate a decrease in muscle tone of psoas to mild levels LTG Duration 07/30/20 One Impairment Pt does not have an appropriate home exercise program Short Term Goal (STG) Pt to be independent and compliant with an appropriate HEP STG Duration 06/30/20 Assessment Summary Assessment L hip more sore today. L Psoas and R TFL had most active Trigger points. IT bands elicited less c/o pain. Pt reports not doing too many ex's at home since last appt. Physical Therapy Plan Frequency and Duration Frequency of Treatment 2x/Week Duration of Treatment 10 weeks Plan of Care Start Date 05/30/20 Plan of Care End Date 08/08/20 Next Visit Focus/Plan Next Note Type Treatment Note Next Visit Plan Flexibility, strengthening, Manual therapy
--- NOTE | 2020-06-13 14:52 | PT.OTN ---
Current Diagnoses Pain in unspecified hip (06/13/20) Stiffness of unspecified hip, not elsewhere classified (06/13/20) Low back pain (06/13/20) Muscle weakness (generalized) (06/13/20) Physical Therapy Treatment Note PT-OP-A Visit Information Start: 05/30/20 16:19 Freq: Status: Active Protocol: Document 06/13/20 14:19 LRN (Rec: 06/13/20 14:49 LRN [id number]) Out-Patient Physical Therapy Visit Information Visit Information Visit Type Treatment Note Visit Start Time 14:19 Visit Stop Time 14:46 Total Visit Minutes 27 Visit Number 5 Evaluation Information Evaluation Date 05/30/20 PT-OP-B Current Condition Start: 05/30/20 16:19 Freq: Status: Active Protocol: Document 05/30/20 12:15 DCW (Rec: 05/30/20 16:45 DCW [id number]) Current Condition History of Current Condition Onset Date Multi-year history, worsening in last year Current Complaints hip and low back pain, stiffness, muscle tightness History of Current Condition Pt is a 70 year old female presenting to skilled therapy with a multi-year history of low back and bilateral hip pain. Pt notes that over the last year, her pain has been worsening, she feels it mainly along the iliac crest along my back, and occasionally radiating down my legs. Reports her hip muscles had been really tight, but reports that about three weeks ago, so started a new medication from her doctor, which she can't remember the name of, and he told her that it was to help her muscles relax, but after researching it on her own, she found that it blocks pain receptors in the brain. Since starting this medication, she has been doing a lot better, but still experiences a lot of tightness in her muscles and stiffness in her hips. Pt reports that she typically has to take a break after walking 25 minutes, she feels like I need to just stop and stretch out if I go any longer than that. Pt also notes that she was diagnosed with a leg length discrepancy, reporting her left leg is shorter than her right. Pt was given orthortics to lift her left heel, but she feels that they are wearing down, and she is hoping she can get a new pair. Prior Treatments and Tests Lumbar X-ray:IMPRESSION: 1. Grade 1 L4-L5 degenerative spondylolisthesis. 2. Multilevel degenerative disease. 3. Multilevel facet arthropathy. 4. No fracture. No acute osseous lesion. If symptoms and/or clinical suspicion for pathology persists, evaluation with MRI may be helpful for further assessment. Jose Ash MD, PhD on 04/04/2020 Hip x-ray: IMPRESSION: Mild bilateral hip osteoarthritis. Per Keeley Ash MD, PhD on 04/04/2020 Treatment Goals Patient/Caregiver Goals I want to get back to walking more. I use to go for a walk with my dog, and could walk 2- 3 hours without resting. Now, this was 10-15 years ago, so I don't think I'll get fully back to that, but more than the 25 minutes I can do right now. PT-OP-C Subjective Start: 05/30/20 16:19 Freq: Status: Active Protocol: Document 06/13/20 14:19 LRN (Rec: 06/13/20 14:49 LRN [id number]) OP-PT Subjective Patient Comments Patient Comments Not quite as painful in the groin on sit to stand. Requests leaving 15' early because of another event. PT-OP-F Manual Assessment Start: 05/30/20 16:19 Freq: Status: Active Protocol: Document 05/30/20 12:15 DCW (Rec: 05/30/20 16:45 DCW [id number]) Manual Assessments Soft Tissue Assessment Soft Tissue Mobility Assessment Severe hypertonia with tenderness to palpation 4/4: Palpation not allowed: Bilateral ITB Moderate hypertonia with tenderness to palpation 3/4: Wincing and withdraw: Right QL , bilateral psoas Moderate hypertonia with tenderness to palpation 2/4: pain with wincing: Left QL, bilateral piriformis, bilateral lumbar paraspinals Joint Mobility Assessment Joint Mobility Assessment PROM of hip WNL, PT-OP-J Posture/Palpation/Skin Start: 05/30/20 16:19 Freq: Status: Active Protocol: Document 05/30/20 12:15 DCW (Rec: 05/30/20 16:45 DCW [id number]) Posture Evaluation Comments Posture Comments Left leg length, ASIS to Medial malleolus: 87 cm Right leg length, ASIS to Medial malleolus: 90 cm PT-OP-L Special Tests Start: 05/30/20 16:19 Freq: Status: Active Protocol: Document 05/30/20 12:15 DCW (Rec: 05/30/20 16:45 DCW [id number]) Special Tests Lumbar Spine Special Tests IGOR Test Results Positive left ipsilateral anterior hip pain Straight Leg Raise Test Results HS tightness at 50? bilateral Hip Special Tests Piriformis Test Results Positive bilaterally Navya's test Test Results Positive bilaterally PT-OP-M Strength Start: 05/30/20 16:19 Freq: Status: Active Protocol: Document 05/30/20 12:15 DCW (Rec: 05/30/20 17:54 DCW [id number]) Hip Strength Hip Manual Muscle Testing Right Flexion (L2) 5 Normal Extension (S1) 4 Good Abduction 5 Normal Adduction 5 Normal Left Flexion (L2) 5 Normal Extension (S1) 4 Good Abduction 5 Normal Adduction 5 Normal Knee Strength Knee Manual Muscle Testing Right Flexion (S2) 5 Normal Extension (L3) 5 Normal Left Flexion (S2) 5 Normal Extension (L3) 5 Normal PT-OP-Q Treatments Start: 05/30/20 16:19 Freq: Status: Active Protocol: Document 06/13/20 14:19 LRN (Rec: 06/13/20 14:49 LRN [id number]) Cardio Equipment Recumbent Elliptical ([place]) Duration (Minutes) 6 Resistance 5 Seat Position 10 Manual Therapy Treatment Soft Tissue Mobilization 3 Body Location ITB Mobilization Type Strumming Intensity/Depth Moderate Body Position Hooklying 2 Body Location Piriformis Mobilization Type Strumming,Sustained Pressure Intensity/Depth Moderate Body Position Sidelying 1 Body Location Psoas Mobilization Type Sustained Pressure Intensity/Depth Superficial Body Position Supine PT-OP-T Assessment and Plan Start: 05/30/20 16:19 Freq: Status: Active Protocol: Document 06/13/20 14:19 LRN (Rec: 06/13/20 14:49 LRN [id number]) Physical Therapy Assessment Goals Three Impairment Hip stiffness: SLR limited to 50? Outreach Director Goal (LTG) SLR to >80? bilaterally with no low back pain LTG Duration 07/30/20 Two Impairment Pt exhibits signs of lower cross syndrome Care Home Goal (LTG) Lower cross syndrome is more an pattern of symptoms ( hypertonia in hip flexors/ lumbar paraspinals, weakness in core/hip extensors). Pt will exhibit 4+/5 in hip fextensors and TrA. Pt will additionally demonstrate a decrease in muscle tone of psoas to mild levels LTG Duration 07/30/20 One Impairment Pt does not have an appropriate home exercise program Short Term Goal (STG) Pt to be independent and compliant with an appropriate HEP STG Duration 06/30/20 Assessment Summary Assessment L hip more sore today. L Psoas and R TFL had most active Trigger points. IT bands elicited less c/o pain. Pt reports not doing too many ex's at home since last appt. Physical Therapy Plan Frequency and Duration Frequency of Treatment 2x/Week Duration of Treatment 10 weeks Plan of Care Start Date 05/30/20 Plan of Care End Date 08/08/20 Next Visit Focus/Plan Next Note Type Treatment Note Next Visit Plan Flexibility, strengthening, Manual therapy
--- NOTE | 2020-07-11 12:46 | PT.OTN ---
Current Diagnoses Pain in unspecified hip (07/11/20) Stiffness of unspecified hip, not elsewhere classified (07/11/20) Low back pain (07/11/20) Muscle weakness (generalized) (07/11/20) Physical Therapy Treatment Note PT-OP-A Visit Information Start: 05/30/20 16:19 Freq: Status: Active Protocol: Document 07/11/20 12:04 DCW (Rec: 07/11/20 12:42 DCW [id number]) Out-Patient Physical Therapy Visit Information Visit Information Visit Type Treatment Note Visit Start Time 12:04 Visit Stop Time 12:45 Total Visit Minutes 41 Visit Number 6 Number of WATERSHED ENGINEER Visits 0 Evaluation Information Evaluation Date 05/30/20 PT-OP-B Current Condition Start: 05/30/20 16:19 Freq: Status: Active Protocol: Document 05/30/20 12:15 DCW (Rec: 05/30/20 16:45 DCW [id number]) Current Condition History of Current Condition Onset Date Multi-year history, worsening in last year Current Complaints hip and low back pain, stiffness, muscle tightness History of Current Condition Pt is a 70 year old female presenting to skilled therapy with a multi-year history of low back and bilateral hip pain. Pt notes that over the last year, her pain has been worsening, she feels it mainly along the iliac crest along my back, and occasionally radiating down my legs. Reports her hip muscles had been really tight, but reports that about three weeks ago, so started a new medication from her doctor, which she can't remember the name of, and he told her that it was to help her muscles relax, but after researching it on her own, she found that it blocks pain receptors in the brain. Since starting this medication, she has been doing a lot better, but still experiences a lot of tightness in her muscles and stiffness in her hips. Pt reports that she typically has to take a break after walking 25 minutes, she feels like I need to just stop and stretch out if I go any longer than that. Pt also notes that she was diagnosed with a leg length discrepancy, reporting her left leg is shorter than her right. Pt was given orthortics to lift her left heel, but she feels that they are wearing down, and she is hoping she can get a new pair. Prior Treatments and Tests Lumbar X-ray:IMPRESSION: 1. Grade 1 L4-L5 degenerative spondylolisthesis. 2. Multilevel degenerative disease. 3. Multilevel facet arthropathy. 4. No fracture. No acute osseous lesion. If symptoms and/or clinical suspicion for pathology persists, evaluation with MRI may be helpful for further assessment. Jose Ash MD, PhD on 04/04/2020 Hip x-ray: IMPRESSION: Mild bilateral hip osteoarthritis. Per Keeley Ash MD, PhD on 04/04/2020 Treatment Goals Patient/Caregiver Goals I want to get back to walking more. I use to go for a walk with my dog, and could walk 2- 3 hours without resting. Now, this was 10-15 years ago, so I don't think I'll get fully back to that, but more than the 25 minutes I can do right now. PT-OP-C Subjective Start: 05/30/20 16:19 Freq: Status: Active Protocol: Document 07/11/20 12:04 DCW (Rec: 07/11/20 12:42 DCW [id number]) OP-PT Subjective Patient Comments Patient Comments When I do the exercises at home, which I admit is infrequent, I do feel a difference. PT-OP-F Manual Assessment Start: 05/30/20 16:19 Freq: Status: Active Protocol: Document 05/30/20 12:15 DCW (Rec: 05/30/20 16:45 DCW [id number]) Manual Assessments Soft Tissue Assessment Soft Tissue Mobility Assessment Severe hypertonia with tenderness to palpation 4/4: Palpation not allowed: Bilateral ITB Moderate hypertonia with tenderness to palpation 3/4: Wincing and withdraw: Right QL , bilateral psoas Moderate hypertonia with tenderness to palpation 2/4: pain with wincing: Left QL, bilateral piriformis, bilateral lumbar paraspinals Joint Mobility Assessment Joint Mobility Assessment PROM of hip WNL, PT-OP-J Posture/Palpation/Skin Start: 05/30/20 16:19 Freq: Status: Active Protocol: Document 05/30/20 12:15 DCW (Rec: 05/30/20 16:45 DCW [id number]) Posture Evaluation Comments Posture Comments Left leg length, ASIS to Medial malleolus: 87 cm Right leg length, ASIS to Medial malleolus: 90 cm PT-OP-L Special Tests Start: 08/03/20 16:19 Freq: Status: Active Protocol: Document 05/30/20 12:15 DCW (Rec: 05/30/20 16:45 DCW [id number]) Special Tests Lumbar Spine Special Tests IGOR Test Results Positive left ipsilateral anterior hip pain Straight Leg Raise Test Results HS tightness at 50? bilateral Hip Special Tests Piriformis Test Results Positive bilaterally Navya's test Test Results Positive bilaterally PT-OP-M Strength Start: 05/30/20 16:19 Freq: Status: Active Protocol: Document 05/30/20 12:15 DCW (Rec: 05/30/20 17:54 DCW [id number]) Hip Strength Hip Manual Muscle Testing Right Flexion (L2) 5 Normal Extension (S1) 4 Good Abduction 5 Normal Adduction 5 Normal Left Flexion (L2) 5 Normal Extension (S1) 4 Good Abduction 5 Normal Adduction 5 Normal Knee Strength Knee Manual Muscle Testing Right Flexion (S2) 5 Normal Extension (L3) 5 Normal Left Flexion (S2) 5 Normal Extension (L3) 5 Normal PT-OP-Q Treatments Start: 05/30/20 16:19 Freq: Status: Active Protocol: Document 07/11/20 12:04 DCW (Rec: 07/11/20 12:42 DCW [id number]) Cardio Equipment Recumbent Stepper ([employer]) Duration (Minutes) 5 Resistance 3 Seat Position 11 Gym Equipment Shuttle Recovery Unilateral Squats Resistance 62# Shuttle Recovery Platform Stable Reps/Time x20 Bilateral Squats Resistance 112# Shuttle Recovery Platform Stable Reps/Time x20 Shuttle Balance Red Details WBOS, Staggered Therapeutic Exercises Standing Exercises 1 Standing Exercise Name Hip Extension Side bilateral Resistance Green Equipment Used T-band Other Exercises 1 Other Exercise Name Resisted Ambulation Resistance Green Equipment Used T-band Comments Lateral, Fwd, Bkwd Manual Therapy Treatment Soft Tissue Mobilization 3 Body Location ITB Mobilization Type Strumming Intensity/Depth Moderate Body Position Hooklying 2 Body Location Piriformis Mobilization Type Strumming,Sustained Pressure Intensity/Depth Moderate Body Position Sidelying 1 Body Location Psoas Mobilization Type Sustained Pressure Intensity/Depth Superficial Body Position Supine PT-OP-T Assessment and Plan Start: 05/30/20 16:19 Freq: Status: Active Protocol: Document 07/11/20 12:04 DCW (Rec: 07/11/20 12:42 DCW [id number]) Physical Therapy Assessment Impairments Impairments Activity Tolerance,Functional Activities,Pain,Posture,ROM, Soft Tissue Mobility,Strength Goals Three Impairment Hip stiffness: SLR limited to 50? Usp Goal (LTG) SLR to >80? bilaterally with no low back pain LTG Duration 07/30/20 Two Impairment Pt exhibits signs of lower cross syndrome Research Technician Goal (LTG) Lower cross syndrome is more an pattern of symptoms ( hypertonia in hip flexors/ lumbar paraspinals, weakness in core/hip extensors). Pt will exhibit 4+/5 in hip fextensors and TrA. Pt will additionally demonstrate a decrease in muscle tone of psoas to mild levels LTG Duration 07/30/20 One Impairment Pt does not have an appropriate home exercise program Short Term Goal (STG) Pt to be independent and compliant with an appropriate HEP STG Duration 06/30/20 Assessment Summary Assessment Pt appears to be making appropriate progress, much less tenderness with palpation and STM. Physical Therapy Plan Frequency and Duration Frequency of Treatment 2x/Week Duration of Treatment 10 weeks Plan of Care Start Date 05/30/20 Plan of Care End Date 08/08/20 Therapeutic Interventions Therapeutic Interventions Home Exercise Program,Joint Mobilizations,Manual Therapy, Patient/Caregiver Education, Self-Care/Home Management,Soft Tissue Mobilization, Therapeutic Activities, Therapeutic Exercises Modalities Cold Pack/Ice Massage,Electric Stimulation,Hot Packs, Ultrasound Next Visit Focus/Plan Next Note Type Treatment Note Next Visit Plan Flexibility, strengthening, Manual therapy
--- NOTE | 2020-07-14 12:02 | PT.OTN ---
Current Diagnoses Pain in unspecified hip (07/14/20) Stiffness of unspecified hip, not elsewhere classified (07/14/20) Low back pain (07/14/20) Muscle weakness (generalized) (07/14/20) Physical Therapy Treatment Note PT-OP-A Visit Information Start: 05/30/20 16:19 Freq: Status: Active Protocol: Document 07/14/20 11:15 DCW (Rec: 07/14/20 12:01 DCW [id number]) Out-Patient Physical Therapy Visit Information Visit Information Visit Type Treatment Note Visit Start Time 11:15 Visit Stop Time 12:00 Total Visit Minutes 45 Visit Number 7 Number of EDUCATION SPECIALIST Visits 0 Evaluation Information Evaluation Date 05/30/20 PT-OP-B Current Condition Start: 05/30/20 16:19 Freq: Status: Active Protocol: Document 05/30/20 12:15 DCW (Rec: 05/30/20 16:45 DCW [id number]) Current Condition History of Current Condition Onset Date Multi-year history, worsening in last year Current Complaints hip and low back pain, stiffness, muscle tightness History of Current Condition Pt is a 70 year old female presenting to skilled therapy with a multi-year history of low back and bilateral hip pain. Pt notes that over the last year, her pain has been worsening, she feels it mainly along the iliac crest along my back, and occasionally radiating down my legs. Reports her hip muscles had been really tight, but reports that about three weeks ago, so started a new medication from her doctor, which she can't remember the name of, and he told her that it was to help her muscles relax, but after researching it on her own, she found that it blocks pain receptors in the brain. Since starting this medication, she has been doing a lot better, but still experiences a lot of tightness in her muscles and stiffness in her hips. Pt reports that she typically has to take a break after walking 25 minutes, she feels like I need to just stop and stretch out if I go any longer than that. Pt also notes that she was diagnosed with a leg length discrepancy, reporting her left leg is shorter than her right. Pt was given orthortics to lift her left heel, but she feels that they are wearing down, and she is hoping she can get a new pair. Prior Treatments and Tests Lumbar X-ray:IMPRESSION: 1. Grade 1 L4-L5 degenerative spondylolisthesis. 2. Multilevel degenerative disease. 3. Multilevel facet arthropathy. 4. No fracture. No acute osseous lesion. If symptoms and/or clinical suspicion for pathology persists, evaluation with MRI may be helpful for further assessment. Jose Ash MD, PhD on 04/04/2020 Hip x-ray: IMPRESSION: Mild bilateral hip osteoarthritis. Per Keeley Ash MD, PhD on 04/04/2020 Treatment Goals Patient/Caregiver Goals I want to get back to walking more. I use to go for a walk with my dog, and could walk 2- 3 hours without resting. Now, this was 10-15 years ago, so I don't think I'll get fully back to that, but more than the 25 minutes I can do right now. PT-OP-C Subjective Start: 05/30/20 16:19 Freq: Status: Active Protocol: Document 07/14/20 11:15 DCW (Rec: 07/14/20 12:01 DCW [id number]) OP-PT Subjective Patient Comments Patient Comments Pt reports she feels like her hips aren't tightening up as much, but admits that with the recent poor air quality, she hasn't been walking as much, which is usually what causes her to feel tighter. PT-OP-F Manual Assessment Start: 05/30/20 16:19 Freq: Status: Active Protocol: Document 05/30/20 12:15 DCW (Rec: 05/30/20 16:45 DCW [id number]) Manual Assessments Soft Tissue Assessment Soft Tissue Mobility Assessment Severe hypertonia with tenderness to palpation 4/4: Palpation not allowed: Bilateral ITB Moderate hypertonia with tenderness to palpation 3/4: Wincing and withdraw: Right QL , bilateral psoas Moderate hypertonia with tenderness to palpation 2/4: pain with wincing: Left QL, bilateral piriformis, bilateral lumbar paraspinals Joint Mobility Assessment Joint Mobility Assessment PROM of hip WNL, PT-OP-J Posture/Palpation/Skin Start: 05/30/20 16:19 Freq: Status: Active Protocol: Document 05/30/20 12:15 DCW (Rec: 05/30/20 16:45 DCW [id number]) Posture Evaluation Comments Posture Comments Left leg length, ASIS to Medial malleolus: 87 cm Right leg length, ASIS to Medial malleolus: 90 cm PT-OP-L Special Tests Start: 05/30/20 16:19 Freq: Status: Active Protocol: Document 05/30/20 12:15 DCW (Rec: 05/30/20 16:45 DCW [id number]) Special Tests Lumbar Spine Special Tests IGOR Test Results Positive left ipsilateral anterior hip pain Straight Leg Raise Test Results HS tightness at 50? bilateral Hip Special Tests Piriformis Test Results Positive bilaterally Navya's test Test Results Positive bilaterally PT-OP-M Strength Start: 05/30/20 16:19 Freq: Status: Active Protocol: Document 05/30/20 12:15 DCW (Rec: 05/30/20 17:54 DCW [id number]) Hip Strength Hip Manual Muscle Testing Right Flexion (L2) 5 Normal Extension (S1) 4 Good Abduction 5 Normal Adduction 5 Normal Left Flexion (L2) 5 Normal Extension (S1) 4 Good Abduction 5 Normal Adduction 5 Normal Knee Strength Knee Manual Muscle Testing Right Flexion (S2) 5 Normal Extension (L3) 5 Normal Left Flexion (S2) 5 Normal Extension (L3) 5 Normal PT-OP-Q Treatments Start: 05/30/20 16:19 Freq: Status: Active Protocol: Document 07/14/20 11:15 DCW (Rec: 07/14/20 12:01 DCW [id number]) Cardio Equipment Recumbent Elliptical ([email or web address]) Duration (Minutes) 6 Resistance 5 Seat Position 10 Gym Equipment Shuttle Recovery Unilateral Squats Resistance 62# Shuttle Recovery Platform Stable Reps/Time x20 Bilateral Squats Resistance 112# Shuttle Recovery Platform Stable Reps/Time x20 Therapeutic Exercises Standing Exercises 1 Standing Exercise Name Hip Extension Side bilateral Resistance Green Equipment Used T-band Other Exercises 1 Other Exercise Name Resisted Ambulation Resistance Green Equipment Used T-band Comments Lateral, Fwd, Bkwd Manual Therapy Treatment Soft Tissue Mobilization 3 Body Location ITB Mobilization Type Strumming Intensity/Depth Moderate Body Position Hooklying 2 Body Location Piriformis Mobilization Type Strumming,Sustained Pressure Intensity/Depth Moderate Body Position Sidelying 1 Body Location Psoas Mobilization Type Sustained Pressure Intensity/Depth Superficial Body Position Supine PT-OP-T Assessment and Plan Start: 05/30/20 16:19 Freq: Status: Active Protocol: Document 07/14/20 11:15 DCW (Rec: 07/14/20 12:01 DCW [id number]) Physical Therapy Assessment Impairments Impairments Activity Tolerance,Functional Activities,Pain,Posture,ROM, Soft Tissue Mobility,Strength Goals Three Impairment Hip stiffness: SLR limited to 50? Fpc Goal (LTG) SLR to >80? bilaterally with no low back pain LTG Duration 07/30/20 Two Impairment Pt exhibits signs of lower cross syndrome Fpc Goal (LTG) Lower cross syndrome is more an pattern of symptoms ( hypertonia in hip flexors/ lumbar paraspinals, weakness in core/hip extensors). Pt will exhibit 4+/5 in hip fextensors and TrA. Pt will additionally demonstrate a decrease in muscle tone of psoas to mild levels LTG Duration 07/30/20 One Impairment Pt does not have an appropriate home exercise program Short Term Goal (STG) Pt to be independent and compliant with an appropriate HEP STG Duration 06/30/20 Assessment Summary Assessment Pt continues to tolerate more STM with less tenderness, feels like she has been more mobile with less stiffness. Physical Therapy Plan Frequency and Duration Frequency of Treatment 2x/Week Duration of Treatment 10 weeks Plan of Care Start Date 05/30/20 Plan of Care End Date 08/08/20 Therapeutic Interventions Therapeutic Interventions Home Exercise Program,Joint Mobilizations,Manual Therapy, Patient/Caregiver Education, Self-Care/Home Management,Soft Tissue Mobilization, Therapeutic Activities, Therapeutic Exercises Modalities Cold Pack/Ice Massage,Electric Stimulation,Hot Packs, Ultrasound Next Visit Focus/Plan Next Note Type Treatment Note Next Visit Plan Flexibility, strengthening, Manual therapy
--- NOTE | 2020-07-18 12:00 | PT.OTN ---
Current Diagnoses Pain in unspecified hip (07/18/20) Stiffness of unspecified hip, not elsewhere classified (07/18/20) Low back pain (07/18/20) Muscle weakness (generalized) (07/18/20) Physical Therapy Treatment Note PT-OP-A Visit Information Start: 05/30/20 16:19 Freq: Status: Active Protocol: Document 07/18/20 11:15 DCW (Rec: 07/18/20 12:00 DCW [id number]) Out-Patient Physical Therapy Visit Information Visit Information Visit Type Treatment Note Visit Start Time 11:15 Visit Stop Time 12:00 Total Visit Minutes 45 Visit Number 8 Number of ROTARY SOIL STABILIZER Visits 0 Evaluation Information Evaluation Date 05/30/20 PT-OP-B Current Condition Start: 05/30/20 16:19 Freq: Status: Active Protocol: Document 05/30/20 12:15 DCW (Rec: 05/30/20 16:45 DCW [id number]) Current Condition History of Current Condition Onset Date Multi-year history, worsening in last year Current Complaints hip and low back pain, stiffness, muscle tightness History of Current Condition Pt is a 70 year old female presenting to skilled therapy with a multi-year history of low back and bilateral hip pain. Pt notes that over the last year, her pain has been worsening, she feels it mainly along the iliac crest along my back, and occasionally radiating down my legs. Reports her hip muscles had been really tight, but reports that about three weeks ago, so started a new medication from her doctor, which she can't remember the name of, and he told her that it was to help her muscles relax, but after researching it on her own, she found that it blocks pain receptors in the brain. Since starting this medication, she has been doing a lot better, but still experiences a lot of tightness in her muscles and stiffness in her hips. Pt reports that she typically has to take a break after walking 25 minutes, she feels like I need to just stop and stretch out if I go any longer than that. Pt also notes that she was diagnosed with a leg length discrepancy, reporting her left leg is shorter than her right. Pt was given orthortics to lift her left heel, but she feels that they are wearing down, and she is hoping she can get a new pair. Prior Treatments and Tests Lumbar X-ray:IMPRESSION: 1. Grade 1 L4-L5 degenerative spondylolisthesis. 2. Multilevel degenerative disease. 3. Multilevel facet arthropathy. 4. No fracture. No acute osseous lesion. If symptoms and/or clinical suspicion for pathology persists, evaluation with MRI may be helpful for further assessment. Jose Ash MD, PhD on 04/04/2020 Hip x-ray: IMPRESSION: Mild bilateral hip osteoarthritis. Per Keeley Ash MD, PhD on 04/04/2020 Treatment Goals Patient/Caregiver Goals I want to get back to walking more. I use to go for a walk with my dog, and could walk 2- 3 hours without resting. Now, this was 10-15 years ago, so I don't think I'll get fully back to that, but more than the 25 minutes I can do right now. PT-OP-C Subjective Start: 05/30/20 16:19 Freq: Status: Active Protocol: Document 07/18/20 11:15 DCW (Rec: 07/18/20 12:00 DCW [id number]) OP-PT Subjective Patient Comments Patient Comments Pt reports she went for a 90 minute bike ride yesterday, and felt fine afterward. Notes her back is not tightening up as quickly, or as much when she is walking, but I need to find a bench and sit down and stretch out [place] on the beach more than 10-15 minutes. PT-OP-F Manual Assessment Start: 05/30/20 16:19 Freq: Status: Active Protocol: Document 05/30/20 12:15 DCW (Rec: 05/30/20 16:45 DCW [id number]) Manual Assessments Soft Tissue Assessment Soft Tissue Mobility Assessment Severe hypertonia with tenderness to palpation 4/4: Palpation not allowed: Bilateral ITB Moderate hypertonia with tenderness to palpation 3/4: Wincing and withdraw: Right QL , bilateral psoas Moderate hypertonia with tenderness to palpation 2/4: pain with wincing: Left QL, bilateral piriformis, bilateral lumbar paraspinals Joint Mobility Assessment Joint Mobility Assessment PROM of hip WNL, PT-OP-J Posture/Palpation/Skin Start: 05/30/20 16:19 Freq: Status: Active Protocol: Document 05/30/20 12:15 DCW (Rec: 05/30/20 16:45 DCW [id number]) Posture Evaluation Comments Posture Comments Left leg length, ASIS to Medial malleolus: 87 cm Right leg length, ASIS to Medial malleolus: 90 cm PT-OP-L Special Tests Start: 05/30/20 16:19 Freq: Status: Active Protocol: Document 05/30/20 12:15 DCW (Rec: 05/30/20 16:45 DCW [id number]) Special Tests Lumbar Spine Special Tests IGOR Test Results Positive left ipsilateral anterior hip pain Straight Leg Raise Test Results HS tightness at 50? bilateral Hip Special Tests Piriformis Test Results Positive bilaterally Navya's test Test Results Positive bilaterally PT-OP-M Strength Start: 05/30/20 16:19 Freq: Status: Active Protocol: Document 05/30/20 12:15 DCW (Rec: 05/30/20 17:54 DCW [id number]) Hip Strength Hip Manual Muscle Testing Right Flexion (L2) 5 Normal Extension (S1) 4 Good Abduction 5 Normal Adduction 5 Normal Left Flexion (L2) 5 Normal Extension (S1) 4 Good Abduction 5 Normal Adduction 5 Normal Knee Strength Knee Manual Muscle Testing Right Flexion (S2) 5 Normal Extension (L3) 5 Normal Left Flexion (S2) 5 Normal Extension (L3) 5 Normal PT-OP-Q Treatments Start: 05/30/20 16:19 Freq: Status: Active Protocol: Document 07/18/20 11:15 DCW (Rec: 07/18/20 12:00 DCW [id number]) Cardio Equipment Recumbent Elliptical (Biodex) Duration (Minutes) 6 Resistance 5 Seat Position 10 Gym Equipment Shuttle Recovery Unilateral Squats Resistance 62# Shuttle Recovery Platform Stable Reps/Time x20 Bilateral Squats Resistance 112# Shuttle Recovery Platform Stable Reps/Time x20 Shuttle Balance Red Details WBOS, Staggered Therapeutic Exercises Supine Exercises 3 Supine Exercise Name PPT /c TrA - SLR 2 Supine Exercise Name PPT /c TrA - Marching 1 Supine Exercise Name PPT /c TrA contraction Reps/Minutes 5 hold Manual Therapy Treatment Soft Tissue Mobilization 3 Body Location ITB Mobilization Type Strumming Intensity/Depth Moderate Body Position Hooklying 2 Body Location Piriformis Mobilization Type Strumming,Sustained Pressure Intensity/Depth Moderate Body Position Sidelying 1 Body Location Psoas Mobilization Type Sustained Pressure Intensity/Depth Superficial Body Position Supine PT-OP-T Assessment and Plan Start: 05/30/20 16:19 Freq: Status: Active Protocol: Document 07/18/20 11:15 DCW (Rec: 07/18/20 12:00 DCW [id number]) Physical Therapy Assessment Impairments Impairments Activity Tolerance,Functional Activities,Pain,Posture,ROM, Soft Tissue Mobility,Strength Goals Three Impairment Hip stiffness: SLR limited to 50? Music Journalist Goal (LTG) SLR to >80? bilaterally with no low back pain LTG Duration 07/30/20 Two Impairment Pt exhibits signs of lower cross syndrome Longterm Goal (LTG) Lower cross syndrome is more an pattern of symptoms ( hypertonia in hip flexors/ lumbar paraspinals, weakness in core/hip extensors). Pt will exhibit 4+/5 in hip fextensors and TrA. Pt will additionally demonstrate a decrease in muscle tone of psoas to mild levels LTG Duration 07/30/20 One Impairment Pt does not have an appropriate home exercise program Short Term Goal (STG) Pt to be independent and compliant with an appropriate HEP STG Duration 06/30/20 Assessment Summary Assessment Pt doing well today, making progress with decreased pain and stiffness when out walking and doing her outdoor hobbies . Physical Therapy Plan Frequency and Duration Frequency of Treatment 2x/Week Duration of Treatment 10 weeks Plan of Care Start Date 05/30/20 Plan of Care End Date 08/08/20 Therapeutic Interventions Therapeutic Interventions Home Exercise Program,Joint Mobilizations,Manual Therapy, Patient/Caregiver Education, Self-Care/Home Management,Soft Tissue Mobilization, Therapeutic Activities, Therapeutic Exercises Modalities Cold Pack/Ice Massage,Electric Stimulation,Hot Packs, Ultrasound Next Visit Focus/Plan Next Note Type Treatment Note Next Visit Plan Flexibility, strengthening, Manual therapy
--- NOTE | 2020-07-25 11:59 | PT.OTN ---
Current Diagnoses Pain in unspecified hip (07/25/20) Stiffness of unspecified hip, not elsewhere classified (07/25/20) Low back pain (07/25/20) Muscle weakness (generalized) (07/25/20) Physical Therapy Treatment Note PT-OP-A Visit Information Start: 05/30/20 16:19 Freq: Status: Active Protocol: Document 07/25/20 11:15 DCW (Rec: 07/25/20 11:59 DCW [id number]) Out-Patient Physical Therapy Visit Information Visit Information Visit Type Treatment Note Visit Start Time 11:15 Visit Stop Time 12:00 Total Visit Minutes 45 Visit Number 9 Number of SECURITY SCREENER Visits 0 Evaluation Information Evaluation Date 05/30/20 PT-OP-B Current Condition Start: 05/30/20 16:19 Freq: Status: Active Protocol: Document 05/30/20 12:15 DCW (Rec: 05/30/20 16:45 DCW [id number]) Current Condition History of Current Condition Onset Date Multi-year history, worsening in last year Current Complaints hip and low back pain, stiffness, muscle tightness History of Current Condition Pt is a 70 year old female presenting to skilled therapy with a multi-year history of low back and bilateral hip pain. Pt notes that over the last year, her pain has been worsening, she feels it mainly along the iliac crest along my back, and occasionally radiating down my legs. Reports her hip muscles had been really tight, but reports that about three weeks ago, so started a new medication from her doctor, which she can't remember the name of, and he told her that it was to help her muscles relax, but after researching it on her own, she found that it blocks pain receptors in the brain. Since starting this medication, she has been doing a lot better, but still experiences a lot of tightness in her muscles and stiffness in her hips. Pt reports that she typically has to take a break after walking 25 minutes, she feels like I need to just stop and stretch out if I go any longer than that. Pt also notes that she was diagnosed with a leg length discrepancy, reporting her left leg is shorter than her right. Pt was given orthortics to lift her left heel, but she feels that they are wearing down, and she is hoping she can get a new pair. Prior Treatments and Tests Lumbar X-ray:IMPRESSION: 1. Grade 1 L4-L5 degenerative spondylolisthesis. 2. Multilevel degenerative disease. 3. Multilevel facet arthropathy. 4. No fracture. No acute osseous lesion. If symptoms and/or clinical suspicion for pathology persists, evaluation with MRI may be helpful for further assessment. Jose Ash MD, PhD on 04/04/2020 Hip x-ray: IMPRESSION: Mild bilateral hip osteoarthritis. Per Keeley Ash MD, PhD on 04/04/2020 Treatment Goals Patient/Caregiver Goals I want to get back to walking more. I use to go for a walk with my dog, and could walk 2- 3 hours without resting. Now, this was 10-15 years ago, so I don't think I'll get fully back to that, but more than the 25 minutes I can do right now. PT-OP-C Subjective Start: 05/30/20 16:19 Freq: Status: Active Protocol: Document 07/25/20 11:15 DCW (Rec: 07/25/20 11:59 DCW [id number]) OP-PT Subjective Patient Comments Patient Comments It's better than it was when I started. Yesterday we went walking at [place] , and we were gone a long time , easily over two miles. I think I had to stop and stretch it out about three times, which isn't too bad. PT-OP-F Manual Assessment Start: 05/30/20 16:19 Freq: Status: Active Protocol: Document 05/30/20 12:15 DCW (Rec: 05/30/20 16:45 DCW [id number]) Manual Assessments Soft Tissue Assessment Soft Tissue Mobility Assessment Severe hypertonia with tenderness to palpation 4/4: Palpation not allowed: Bilateral ITB Moderate hypertonia with tenderness to palpation 3/4: Wincing and withdraw: Right QL , bilateral psoas Moderate hypertonia with tenderness to palpation 2/4: pain with wincing: Left QL, bilateral piriformis, bilateral lumbar paraspinals Joint Mobility Assessment Joint Mobility Assessment PROM of hip WNL, PT-OP-J Posture/Palpation/Skin Start: 05/30/20 16:19 Freq: Status: Active Protocol: Document 05/30/20 12:15 DCW (Rec: 05/30/20 16:45 DCW [id number]) Posture Evaluation Comments Posture Comments Left leg length, ASIS to Medial malleolus: 87 cm Right leg length, ASIS to Medial malleolus: 90 cm PT-OP-L Special Tests Start: 05/30/20 16:19 Freq: Status: Active Protocol: Document 05/30/20 12:15 DCW (Rec: 05/30/20 16:45 DCW [id number]) Special Tests Lumbar Spine Special Tests IGOR Test Results Positive left ipsilateral anterior hip pain Straight Leg Raise Test Results HS tightness at 50? bilateral Hip Special Tests Piriformis Test Results Positive bilaterally Navya's test Test Results Positive bilaterally PT-OP-M Strength Start: 05/30/20 16:19 Freq: Status: Active Protocol: Document 05/30/20 12:15 DCW (Rec: 05/30/20 17:54 DCW [id number]) Hip Strength Hip Manual Muscle Testing Right Flexion (L2) 5 Normal Extension (S1) 4 Good Abduction 5 Normal Adduction 5 Normal Left Flexion (L2) 5 Normal Extension (S1) 4 Good Abduction 5 Normal Adduction 5 Normal Knee Strength Knee Manual Muscle Testing Right Flexion (S2) 5 Normal Extension (L3) 5 Normal Left Flexion (S2) 5 Normal Extension (L3) 5 Normal PT-OP-Q Treatments Start: 05/30/20 16:19 Freq: Status: Active Protocol: Document 07/25/20 11:15 DCW (Rec: 07/25/20 11:59 DCW [id number]) Cardio Equipment Recumbent Elliptical (Biodex) Duration (Minutes) 6 Resistance 5 Seat Position 10 Gym Equipment Shuttle Recovery Unilateral Squats Resistance 62# Shuttle Recovery Platform Stable Reps/Time x20 Bilateral Squats Resistance 112# Shuttle Recovery Platform Stable Reps/Time x20 Shuttle Balance Red Details WBOS, Staggered, Lat weight shift Therapeutic Exercises Other Exercises 1 Other Exercise Name Resisted Ambulation Resistance Green Equipment Used T-band Comments Lateral, Fwd, Bkwd Manual Therapy Treatment Soft Tissue Mobilization 3 Body Location ITB Mobilization Type Strumming Intensity/Depth Moderate Body Position Hooklying 2 Body Location Piriformis Mobilization Type Strumming,Sustained Pressure Intensity/Depth Moderate Body Position Sidelying 1 Body Location Psoas Mobilization Type Sustained Pressure Intensity/Depth Superficial Body Position Supine PT-OP-T Assessment and Plan Start: 05/30/20 16:19 Freq: Status: Active Protocol: Document 07/25/20 11:15 DCW (Rec: 07/25/20 11:59 DCW [id number]) Physical Therapy Assessment Impairments Impairments Activity Tolerance,Functional Activities,Pain,Posture,ROM, Soft Tissue Mobility,Strength Goals Three Impairment Hip stiffness: SLR limited to 50? Reproductive Healthcare Assistant Goal (LTG) SLR to >80? bilaterally with no low back pain LTG Duration 07/30/20 Two Impairment Pt exhibits signs of lower cross syndrome Fdc Goal (LTG) Lower cross syndrome is more an pattern of symptoms ( hypertonia in hip flexors/ lumbar paraspinals, weakness in core/hip extensors). Pt will exhibit 4+/5 in hip fextensors and TrA. Pt will additionally demonstrate a decrease in muscle tone of psoas to mild levels LTG Duration 07/30/20 One Impairment Pt does not have an appropriate home exercise program Short Term Goal (STG) Pt to be independent and compliant with an appropriate HEP STG Duration 06/30/20 Assessment Summary Assessment Pt had noticeable decrease in tone through hip flexors and ITB today. Pt having less pain and tightness during ambulation. Physical Therapy Plan Frequency and Duration Frequency of Treatment 2x/Week Duration of Treatment 10 weeks Plan of Care Start Date 05/30/20 Plan of Care End Date 08/08/20 Therapeutic Interventions Therapeutic Interventions Home Exercise Program,Joint Mobilizations,Manual Therapy, Patient/Caregiver Education, Self-Care/Home Management,Soft Tissue Mobilization, Therapeutic Activities, Therapeutic Exercises Modalities Cold Pack/Ice Massage,Electric Stimulation,Hot Packs, Ultrasound Next Visit Focus/Plan Next Note Type Treatment Note Next Visit Plan Flexibility, strengthening, Manual therapy
--- NOTE | 2020-07-28 12:01 | PT.OTN ---
Current Diagnoses Pain in unspecified hip (07/28/20) Stiffness of unspecified hip, not elsewhere classified (07/28/20) Low back pain (07/28/20) Muscle weakness (generalized) (07/28/20) Physical Therapy Treatment Note PT-OP-A Visit Information Start: 05/30/20 16:19 Freq: Status: Active Protocol: Document 07/28/20 11:25 DCW (Rec: 07/28/20 12:00 DCW [id number]) Out-Patient Physical Therapy Visit Information Visit Information Visit Type Treatment Note Visit Note 10 min late Visit Start Time 11:25 Visit Stop Time 12:00 Total Visit Minutes 35 Visit Number 10 Number of REACHER Visits 0 Evaluation Information Evaluation Date 05/30/20 PT-OP-B Current Condition Start: 05/30/20 16:19 Freq: Status: Active Protocol: Document 05/30/20 12:15 DCW (Rec: 05/30/20 16:45 DCW [id number]) Current Condition History of Current Condition Onset Date Multi-year history, worsening in last year Current Complaints hip and low back pain, stiffness, muscle tightness History of Current Condition Pt is a 70 year old female presenting to skilled therapy with a multi-year history of low back and bilateral hip pain. Pt notes that over the last year, her pain has been worsening, she feels it mainly along the iliac crest along my back, and occasionally radiating down my legs. Reports her hip muscles had been really tight, but reports that about three weeks ago, so started a new medication from her doctor, which she can't remember the name of, and he told her that it was to help her muscles relax, but after researching it on her own, she found that it blocks pain receptors in the brain. Since starting this medication, she has been doing a lot better, but still experiences a lot of tightness in her muscles and stiffness in her hips. Pt reports that she typically has to take a break after walking 25 minutes, she feels like I need to just stop and stretch out if I go any longer than that. Pt also notes that she was diagnosed with a leg length discrepancy, reporting her left leg is shorter than her right. Pt was given orthortics to lift her left heel, but she feels that they are wearing down, and she is hoping she can get a new pair. Prior Treatments and Tests Lumbar X-ray:IMPRESSION: 1. Grade 1 L4-L5 degenerative spondylolisthesis. 2. Multilevel degenerative disease. 3. Multilevel facet arthropathy. 4. No fracture. No acute osseous lesion. If symptoms and/or clinical suspicion for pathology persists, evaluation with MRI may be helpful for further assessment. Per Keeley Ash MD, PhD on 04/04/2020 Hip x-ray: IMPRESSION: Mild bilateral hip osteoarthritis. Per Keeley Ash MD, PhD on 04/04/2020 Treatment Goals Patient/Caregiver Goals I want to get back to walking more. I use to go for a walk with my dog, and could walk 2- 3 hours without resting. Now, this was 10-15 years ago, so I don't think I'll get fully back to that, but more than the 25 minutes I can do right now. PT-OP-C Subjective Start: 05/30/20 16:19 Freq: Status: Active Protocol: Document 07/28/20 11:25 DCW (Rec: 07/28/20 12:00 DCW [id number]) OP-PT Subjective Patient Comments Patient Comments In the last two or three days , I've had some strange pain down my leg. I realized I had a flu shot and pneumonia vaccine, so maybe that had something to do with it. PT-OP-F Manual Assessment Start: 05/30/20 16:19 Freq: Status: Active Protocol: Document 05/30/20 12:15 DCW (Rec: 05/30/20 16:45 DCW [id number]) Manual Assessments Soft Tissue Assessment Soft Tissue Mobility Assessment Severe hypertonia with tenderness to palpation 4/4: Palpation not allowed: Bilateral ITB Moderate hypertonia with tenderness to palpation 3/4: Wincing and withdraw: Right QL , bilateral psoas Moderate hypertonia with tenderness to palpation 2/4: pain with wincing: Left QL, bilateral piriformis, bilateral lumbar paraspinals Joint Mobility Assessment Joint Mobility Assessment PROM of hip WNL, PT-OP-J Posture/Palpation/Skin Start: 05/30/20 16:19 Freq: Status: Active Protocol: Document 05/30/20 12:15 DCW (Rec: 05/30/20 16:45 DCW [id number]) Posture Evaluation Comments Posture Comments Left leg length, ASIS to Medial malleolus: 87 cm Right leg length, ASIS to Medial malleolus: 90 cm PT-OP-L Special Tests Start: 05/30/20 16:19 Freq: Status: Active Protocol: Document 05/30/20 12:15 DCW (Rec: 05/30/20 16:45 DCW [id number]) Special Tests Lumbar Spine Special Tests IGOR Test Results Positive left ipsilateral anterior hip pain Straight Leg Raise Test Results HS tightness at 50? bilateral Hip Special Tests Piriformis Test Results Positive bilaterally Navya's test Test Results Positive bilaterally PT-OP-M Strength Start: 05/30/20 16:19 Freq: Status: Active Protocol: Document 05/30/20 12:15 DCW (Rec: 05/30/20 17:54 DCW [id number]) Hip Strength Hip Manual Muscle Testing Right Flexion (L2) 5 Normal Extension (S1) 4 Good Abduction 5 Normal Adduction 5 Normal Left Flexion (L2) 5 Normal Extension (S1) 4 Good Abduction 5 Normal Adduction 5 Normal Knee Strength Knee Manual Muscle Testing Right Flexion (S2) 5 Normal Extension (L3) 5 Normal Left Flexion (S2) 5 Normal Extension (L3) 5 Normal PT-OP-Q Treatments Start: 05/30/20 16:19 Freq: Status: Active Protocol: Document 07/28/20 11:25 DCW (Rec: 07/28/20 12:00 DCW [id number]) Cardio Equipment Recumbent Elliptical (BiodCheckInPage) Duration (Minutes) 6 Resistance 5 Seat Position 10 Gym Equipment Shuttle Recovery Unilateral Squats Resistance 62# Shuttle Recovery Platform Stable Reps/Time x20 Bilateral Squats Resistance 112# Shuttle Recovery Platform Stable Reps/Time x20 Therapeutic Exercises Other Exercises 1 Other Exercise Name Resisted Ambulation Resistance Green Equipment Used T-band Comments Lateral, Fwd, Bkwd Manual Therapy Treatment Soft Tissue Mobilization 3 Body Location ITB Mobilization Type Strumming Intensity/Depth Moderate Body Position Hooklying 2 Body Location Piriformis Mobilization Type Strumming,Sustained Pressure Intensity/Depth Moderate Body Position Sidelying 1 Body Location Psoas Mobilization Type Sustained Pressure Intensity/Depth Superficial Body Position Supine PT-OP-T Assessment and Plan Start: 05/30/20 16:19 Freq: Status: Active Protocol: Document 07/28/20 11:25 DCW (Rec: 07/28/20 12:00 DCW [id number]) Physical Therapy Assessment Impairments Impairments Activity Tolerance,Functional Activities,Pain,Posture,ROM, Soft Tissue Mobility,Strength Goals Three Impairment Hip stiffness: SLR limited to 50? Digital Director Goal (LTG) SLR to >80? bilaterally with no low back pain LTG Duration 07/30/20 Two Impairment Pt exhibits signs of lower cross syndrome Detention Goal (LTG) Lower cross syndrome is more an pattern of symptoms ( hypertonia in hip flexors/ lumbar paraspinals, weakness in core/hip extensors). Pt will exhibit 4+/5 in hip fextensors and TrA. Pt will additionally demonstrate a decrease in muscle tone of psoas to mild levels LTG Duration 07/30/20 One Impairment Pt does not have an appropriate home exercise program Short Term Goal (STG) Pt to be independent and compliant with an appropriate HEP STG Duration 06/30/20 Assessment Summary Assessment Pt continues to show progress with mobility and ambulating without increased stiffness and pain. Physical Therapy Plan Frequency and Duration Frequency of Treatment 2x/Week Duration of Treatment 10 weeks Plan of Care Start Date 05/30/20 Plan of Care End Date 08/08/20 Therapeutic Interventions Therapeutic Interventions Home Exercise Program,Joint Mobilizations,Manual Therapy, Patient/Caregiver Education, Self-Care/Home Management,Soft Tissue Mobilization, Therapeutic Activities, Therapeutic Exercises Modalities Cold Pack/Ice Massage,Electric Stimulation,Hot Packs, Ultrasound Next Visit Focus/Plan Next Note Type Treatment Note Next Visit Plan Flexibility, strengthening, Manual therapy
--- NOTE | 2020-08-01 16:14 | PT.OTN ---
Current Diagnoses Pain in unspecified hip (08/01/20) Stiffness of unspecified hip, not elsewhere classified (08/01/20) Low back pain (08/01/20) Muscle weakness (generalized) (08/01/20) Physical Therapy Treatment Note PT-OP-A Visit Information Start: 05/30/20 16:19 Freq: Status: Active Protocol: Document 08/01/20 13:36 LRN (Rec: 08/01/20 14:21 LRN [id number]) Out-Patient Physical Therapy Visit Information Visit Information Visit Type Treatment Note Visit Start Time 13:37 Visit Stop Time 14:20 Total Visit Minutes 43 Visit Number 11 Evaluation Information Evaluation Date 05/30/20 PT-OP-B Current Condition Start: 05/30/20 16:19 Freq: Status: Active Protocol: Document 05/30/20 12:15 DCW (Rec: 05/30/20 16:45 DCW [id number]) Current Condition History of Current Condition Onset Date Multi-year history, worsening in last year Current Complaints hip and low back pain, stiffness, muscle tightness History of Current Condition Pt is a 70 year old female presenting to skilled therapy with a multi-year history of low back and bilateral hip pain. Pt notes that over the last year, her pain has been worsening, she feels it mainly along the iliac crest along my back, and occasionally radiating down my legs. Reports her hip muscles had been really tight, but reports that about three weeks ago, so started a new medication from her doctor, which she can't remember the name of, and he told her that it was to help her muscles relax, but after researching it on her own, she found that it blocks pain receptors in the brain. Since starting this medication, she has been doing a lot better, but still experiences a lot of tightness in her muscles and stiffness in her hips. Pt reports that she typically has to take a break after walking 25 minutes, she feels like I need to just stop and stretch out if I go any longer than that. Pt also notes that she was diagnosed with a leg length discrepancy, reporting her left leg is shorter than her right. Pt was given orthortics to lift her left heel, but she feels that they are wearing down, and she is hoping she can get a new pair. Prior Treatments and Tests Lumbar X-ray:IMPRESSION: 1. Grade 1 L4-L5 degenerative spondylolisthesis. 2. Multilevel degenerative disease. 3. Multilevel facet arthropathy. 4. No fracture. No acute osseous lesion. If symptoms and/or clinical suspicion for pathology persists, evaluation with MRI may be helpful for further assessment. Jose Ash MD, PhD on 04/04/2020 Hip x-ray: IMPRESSION: Mild bilateral hip osteoarthritis. Per Keeley Ash MD, PhD on 04/04/2020 Treatment Goals Patient/Caregiver Goals I want to get back to walking more. I use to go for a walk with my dog, and could walk 2- 3 hours without resting. Now, this was 10-15 years ago, so I don't think I'll get fully back to that, but more than the 25 minutes I can do right now. PT-OP-C Subjective Start: 05/30/20 16:19 Freq: Status: Active Protocol: Document 08/01/20 13:36 LRN (Rec: 08/01/20 16:03 LRN [id number]) OP-PT Subjective Patient Comments Patient Comments States sometimes she gets sharp pain in the knees. Noticed in past 2 days having ache in the thighs, but not the usual hot spots, but wasn't noticing it as she walked in. PT-OP-F Manual Assessment Start: 05/30/20 16:19 Freq: Status: Active Protocol: Document 05/30/20 12:15 DCW (Rec: 05/30/20 16:45 DCW [id number]) Manual Assessments Soft Tissue Assessment Soft Tissue Mobility Assessment Severe hypertonia with tenderness to palpation 4/4: Palpation not allowed: Bilateral ITB Moderate hypertonia with tenderness to palpation 3/4: Wincing and withdraw: Right QL , bilateral psoas Moderate hypertonia with tenderness to palpation 2/4: pain with wincing: Left QL, bilateral piriformis, bilateral lumbar paraspinals Joint Mobility Assessment Joint Mobility Assessment PROM of hip WNL, PT-OP-J Posture/Palpation/Skin Start: 05/30/20 16:19 Freq: Status: Active Protocol: Document 05/30/20 12:15 DCW (Rec: 05/30/20 16:45 DCW [id number]) Posture Evaluation Comments Posture Comments Left leg length, ASIS to Medial malleolus: 87 cm Right leg length, ASIS to Medial malleolus: 90 cm PT-OP-L Special Tests Start: 05/30/20 16:19 Freq: Status: Active Protocol: Document 05/30/20 12:15 DCW (Rec: 05/30/20 16:45 DCW [id number]) Special Tests Lumbar Spine Special Tests IGOR Test Results Positive left ipsilateral anterior hip pain Straight Leg Raise Test Results HS tightness at 50? bilateral Hip Special Tests Piriformis Test Results Positive bilaterally Navya's test Test Results Positive bilaterally PT-OP-M Strength Start: 05/30/20 16:19 Freq: Status: Active Protocol: Document 05/30/20 12:15 DCW (Rec: 05/30/20 17:54 DCW [id number]) Hip Strength Hip Manual Muscle Testing Right Flexion (L2) 5 Normal Extension (S1) 4 Good Abduction 5 Normal Adduction 5 Normal Left Flexion (L2) 5 Normal Extension (S1) 4 Good Abduction 5 Normal Adduction 5 Normal Knee Strength Knee Manual Muscle Testing Right Flexion (S2) 5 Normal Extension (L3) 5 Normal Left Flexion (S2) 5 Normal Extension (L3) 5 Normal PT-OP-Q Treatments Start: 05/30/20 16:19 Freq: Status: Active Protocol: Document 08/01/20 13:36 LRN (Rec: 08/01/20 14:21 LRN [id number]) Cardio Equipment Recumbent Elliptical (Biodex) Duration (Minutes) 6 Resistance 5 Seat Position 10 Gym Equipment Shuttle Recovery Unilateral Squats Resistance 62# Shuttle Recovery Platform Stable Reps/Time x20 & x10 Bilateral Squats Resistance 112# Shuttle Recovery Platform Stable Reps/Time x20 & Therapeutic Exercises Supine Exercises Hip flexor stretch Supine Exercise Name Lonnie Test position f/b 10 active stretchs Side bilateral Piriformis stretch Supine Exercise Name Piriformis stretch Side bilateral Reps/Minutes 2' Other Exercises 1 Other Exercise Name Resisted Ambulation ( sidestepping) Resistance Green Equipment Used T-band Comments Lateral, Fwd, Bkwd Manual Therapy Treatment Soft Tissue Mobilization TFL Body Location TFL bilaterally Mobilization Type Strumming,Trigger Point Release Intensity/Depth Moderate Body Position Hooklying 1 Body Location Psoas bilaterally Mobilization Type Sustained Pressure Intensity/Depth Superficial Body Position Supine PT-OP-R Modalities Start: 05/30/20 16:19 Freq: Status: Active Protocol: Document 08/01/20 13:36 LRN (Rec: 08/01/20 16:12 LRN [id number]) Hot Pack/Cold Pack Treatment Cold Pack Location L groin Patient Position Supine Treatment Duration (minutes) 8 Patient Tolerance Poor Comments Used during manual therapy to the R hip. PT-OP-T Assessment and Plan Start: 05/30/20 16:19 Freq: Status: Active Protocol: Document 08/01/20 13:36 LRN (Rec: 08/01/20 14:21 LRN [id number]) Physical Therapy Assessment Goals Three Impairment Hip stiffness: SLR limited to 50? Heating Fixture Tender Goal (LTG) SLR to >80? bilaterally with no low back pain LTG Duration 07/30/20 Two Impairment Pt exhibits signs of lower cross syndrome Nursing Home Goal (LTG) Lower cross syndrome is more an pattern of symptoms ( hypertonia in hip flexors/ lumbar paraspinals, weakness in core/hip extensors). Pt will exhibit 4+/5 in hip fextensors and TrA. Pt will additionally demonstrate a decrease in muscle tone of psoas to mild levels LTG Duration 07/30/20 One Impairment Pt does not have an appropriate home exercise program Short Term Goal (STG) Pt to be independent and compliant with an appropriate HEP STG Duration 06/30/20 Assessment Summary Assessment Pt tolerated increased strengthening on shuttle recovery. She may benefit from core strengthening. Physical Therapy Plan Frequency and Duration Frequency of Treatment 2x/Week Duration of Treatment 10 weeks Plan of Care Start Date 05/30/20 Plan of Care End Date 08/08/20 Next Visit Focus/Plan Next Note Type Treatment Note Next Visit Plan Assess response to Psoas stretch. Add core/hip ext strengthening. Cont POC: Flexibility, strengthening, Manual therapy
--- NOTE | 2020-08-09 15:16 | PT.OTN ---
Current Diagnoses Pain in unspecified hip (08/09/20) Stiffness of unspecified hip, not elsewhere classified (08/09/20) Low back pain (08/09/20) Muscle weakness (generalized) (08/09/20) Physical Therapy Treatment Note PT-OP-A Visit Information Start: 05/30/20 16:19 Freq: Status: Active Protocol: Document 08/09/20 13:46 DCW (Rec: 08/09/20 14:31 DCW [id number]) Out-Patient Physical Therapy Visit Information Visit Information Visit Type Progress Note Visit Start Time 13:46 Visit Stop Time 14:30 Total Visit Minutes 44 Visit Number 12 Number of APPEALS EXAMINER Visits 0 Evaluation Information Evaluation Date 05/30/20 PT-OP-B Current Condition Start: 05/30/20 16:19 Freq: Status: Active Protocol: Document 05/30/20 12:15 DCW (Rec: 05/30/20 16:45 DCW [id number]) Current Condition History of Current Condition Onset Date Multi-year history, worsening in last year Current Complaints hip and low back pain, stiffness, muscle tightness History of Current Condition Pt is a 70 year old female presenting to skilled therapy with a multi-year history of low back and bilateral hip pain. Pt notes that over the last year, her pain has been worsening, she feels it mainly along the iliac crest along my back, and occasionally radiating down my legs. Reports her hip muscles had been really tight, but reports that about three weeks ago, so started a new medication from her doctor, which she can't remember the name of, and he told her that it was to help her muscles relax, but after researching it on her own, she found that it blocks pain receptors in the brain. Since starting this medication, she has been doing a lot better, but still experiences a lot of tightness in her muscles and stiffness in her hips. Pt reports that she typically has to take a break after walking 25 minutes, she feels like I need to just stop and stretch out if I go any longer than that. Pt also notes that she was diagnosed with a leg length discrepancy, reporting her left leg is shorter than her right. Pt was given orthortics to lift her left heel, but she feels that they are wearing down, and she is hoping she can get a new pair. Prior Treatments and Tests Lumbar X-ray:IMPRESSION: 1. Grade 1 L4-L5 degenerative spondylolisthesis. 2. Multilevel degenerative disease. 3. Multilevel facet arthropathy. 4. No fracture. No acute osseous lesion. If symptoms and/or clinical suspicion for pathology persists, evaluation with MRI may be helpful for further assessment. Per Keeley Ash MD, PhD on 04/04/2020 Hip x-ray: IMPRESSION: Mild bilateral hip osteoarthritis. Per Keeley Ash MD, PhD on 04/04/2020 Treatment Goals Patient/Caregiver Goals I want to get back to walking more. I use to go for a walk with my dog, and could walk 2- 3 hours without resting. Now, this was 10-15 years ago, so I don't think I'll get fully back to that, but more than the 25 minutes I can do right now. PT-OP-C Subjective Start: 05/30/20 16:19 Freq: Status: Active Protocol: Document 08/09/20 13:46 DCW (Rec: 08/09/20 14:31 DCW [id number]) OP-PT Subjective Patient Comments Patient Comments My aches and pains are not at a bothersome level. PT-OP-F Manual Assessment Start: 05/30/20 16:19 Freq: Status: Active Protocol: Document 08/09/20 13:45 DCW (Rec: 08/09/20 15:16 DCW [id number]) Manual Assessments Soft Tissue Assessment Soft Tissue Mobility Assessment Moderate hypertonia with tenderness to palpation 2/4: Pain with wincing: Bilateral ITB, bilateral QL, bilateral psoas, bilateral piriformis, bilateral lumbar paraspinals PT-OP-J Posture/Palpation/Skin Start: 05/30/20 16:19 Freq: Status: Active Protocol: Document 05/30/20 12:15 DCW (Rec: 05/30/20 16:45 DCW [id number]) Posture Evaluation Comments Posture Comments Left leg length, ASIS to Medial malleolus: 87 cm Right leg length, ASIS to Medial malleolus: 90 cm PT-OP-L Special Tests Start: 05/30/20 16:19 Freq: Status: Active Protocol: Document 08/09/20 13:45 DCW (Rec: 08/09/20 15:16 DCW [id number]) Special Tests Lumbar Spine Special Tests IGOR Test Results Positive left ipsilateral anterior hip pain Straight Leg Raise Test Results HS tightness at 62? bilateral Hip Special Tests Piriformis Test Results Positive bilaterally Navya's test Test Results Positive bilaterally PT-OP-M Strength Start: 05/30/20 16:19 Freq: Status: Active Protocol: Document 08/09/20 13:45 DCW (Rec: 08/09/20 15:16 DCW [id number]) Hip Strength Hip Manual Muscle Testing Right Flexion (L2) 5 Normal Extension (S1) 4 Good Abduction 5 Normal Adduction 5 Normal Left Flexion (L2) 5 Normal Extension (S1) 4 Good Abduction 5 Normal Adduction 5 Normal Knee Strength Knee Manual Muscle Testing Right Flexion (S2) 5 Normal Extension (L3) 5 Normal Left Flexion (S2) 5 Normal Extension (L3) 5 Normal PT-OP-Q Treatments Start: 05/30/20 16:19 Freq: Status: Active Protocol: Document 08/09/20 13:46 DCW (Rec: 08/09/20 14:31 DCW [id number]) Cardio Equipment Recumbent Elliptical (Gigstarter) Duration (Minutes) 6 Resistance 5 Seat Position 10 Gym Equipment Shuttle Recovery Unilateral Squats Resistance 62# Shuttle Recovery Platform Stable Reps/Time x20 Bilateral Squats Resistance 112# Shuttle Recovery Platform Stable Reps/Time x20 Therapeutic Exercises Other Exercises 1 Other Exercise Name Resisted Ambulation Resistance Green Equipment Used T-band Comments Lateral, Fwd, Bkwd Manual Therapy Treatment Soft Tissue Mobilization TFL Body Location TFL bilaterally Mobilization Type Strumming,Trigger Point Release Intensity/Depth Moderate Body Position Hooklying 3 Body Location ITB Mobilization Type Strumming Intensity/Depth Moderate Body Position Hooklying 2 Body Location Piriformis Mobilization Type Strumming,Sustained Pressure Intensity/Depth Moderate Body Position Sidelying 1 Body Location Psoas Mobilization Type Sustained Pressure Intensity/Depth Superficial Body Position Supine PT-OP-R Modalities Start: 05/30/20 16:19 Freq: Status: Active Protocol: Document 08/01/20 13:36 LRN (Rec: 08/01/20 16:12 LRN [id number]) Hot Pack/Cold Pack Treatment Cold Pack Location L groin Patient Position Supine Treatment Duration (minutes) 8 Patient Tolerance Poor Comments Used during manual therapy to the R hip. PT-OP-T Assessment and Plan Start: 05/30/20 16:19 Freq: Status: Active Protocol: Document 08/09/20 13:46 DCW (Rec: 08/09/20 14:31 DCW [id number]) Physical Therapy Assessment Impairments Impairments Activity Tolerance,Functional Activities,Pain,Posture,ROM, Soft Tissue Mobility,Strength Goals Three Impairment Hip stiffness: SLR limited to 50? Fpc Goal (LTG) SLR to >80? bilaterally with no low back pain LTG Duration 10/18/20 Two Impairment Pt exhibits signs of lower cross syndrome Fpc Goal (LTG) Lower cross syndrome is more an pattern of symptoms ( hypertonia in hip flexors/ lumbar paraspinals, weakness in core/hip extensors). Pt will exhibit 4+/5 in hip fextensors and TrA. Pt will additionally demonstrate a decrease in muscle tone of psoas to mild levels LTG Duration 10/18/20 One Impairment Pt does not have an appropriate home exercise program Short Term Goal (STG) Pt to be independent and compliant with an appropriate HEP STG Duration 09/09/20 Assessment Summary Assessment Pt tolerating more manual therapy recently without complaints of pain, continue to attempt to transition to strengthening hips and core. Physical Therapy Plan Frequency and Duration Frequency of Treatment 2x/Week Duration of Treatment 10 weeks Plan of Care Start Date 08/09/20 Plan of Care End Date 10/18/20 Therapeutic Interventions Therapeutic Interventions Home Exercise Program,Joint Mobilizations,Manual Therapy, Patient/Caregiver Education, Self-Care/Home Management,Soft Tissue Mobilization, Therapeutic Activities, Therapeutic Exercises Modalities Cold Pack/Ice Massage,Electric Stimulation,Hot Packs, Ultrasound Next Visit Focus/Plan Next Note Type Treatment Note Next Visit Plan Flexibility, strengthening, Manual therapy
--- NOTE | 2020-08-09 15:17 | PT.OPPOC ---
[facility], Occupational [facility] Current Diagnoses Pain in unspecified hip (08/09/20) Stiffness of unspecified hip, not elsewhere classified (08/09/20) Low back pain (08/09/20) Muscle weakness (generalized) (08/09/20) Visit Care Team Role Provider Type Gregg Hawthorne MD Attending Provider Physician Primary Care Provider Referring Provider Specialty: Wound Care Address: [address] [place] [address], [id number] Email: [email or web address] Plan Of Care PT-OP-T Assessment and Plan Start: 05/30/20 16:19 Freq: Status: Active Protocol: Document 08/09/20 13:46 DCW (Rec: 08/09/20 14:31 DCW [id number]) Physical Therapy Assessment Impairments Impairments Activity Tolerance,Functional Activities,Pain,Posture,ROM, Soft Tissue Mobility,Strength Goals Three Impairment Hip stiffness: SLR limited to 50? Carousel Attendant Goal (LTG) SLR to >80? bilaterally with no low back pain LTG Duration 10/18/20 Two Impairment Pt exhibits signs of lower cross syndrome Carousel Attendant Goal (LTG) Lower cross syndrome is more an pattern of symptoms ( hypertonia in hip flexors/ lumbar paraspinals, weakness in core/hip extensors). Pt will exhibit 4+/5 in hip fextensors and TrA. Pt will additionally demonstrate a decrease in muscle tone of psoas to mild levels LTG Duration 10/18/20 One Impairment Pt does not have an appropriate home exercise program Short Term Goal (STG) Pt to be independent and compliant with an appropriate HEP STG Duration 09/09/20 Assessment Summary Assessment Pt tolerating more manual therapy recently without complaints of pain, continue to attempt to transition to strengthening hips and core. Physical Therapy Plan Frequency and Duration Frequency of Treatment 2x/Week Duration of Treatment 10 weeks Plan of Care Start Date 08/09/20 Plan of Care End Date 10/18/20 Therapeutic Interventions Therapeutic Interventions Home Exercise Program,Joint Mobilizations,Manual Therapy, Patient/Caregiver Education, Self-Care/Home Management,Soft Tissue Mobilization, Therapeutic Activities, Therapeutic Exercises Modalities Cold Pack/Ice Massage,Electric Stimulation,Hot Packs, Ultrasound Next Visit Focus/Plan Next Note Type Treatment Note Next Visit Plan Flexibility, strengthening, Manual therapy Plan of Care Dates Plan of Care Start Date 08/09/20 Plan of Care End Date 10/18/20 Electronically Signed by: Car Thomas, PT 08/09/20 [id number] Please Sign and Return: I have reviewed this Plan of Care and certify that the skilled therapy services above are required to meet the patient?s needs. Physician Signature Date Printed Name and Credentials Clinical Instructor Signature Printed Name and Credentials
--- NOTE | 2020-08-11 15:55 | PT.OTN ---
Current Diagnoses Pain in unspecified hip (08/11/20) Stiffness of unspecified hip, not elsewhere classified (08/11/20) Low back pain (08/11/20) Muscle weakness (generalized) (08/11/20) Physical Therapy Treatment Note PT-OP-A Visit Information Start: 05/30/20 16:19 Freq: Status: Active Protocol: Document 08/11/20 15:03 LRN (Rec: 08/11/20 15:51 LRN [id number]) Out-Patient Physical Therapy Visit Information Visit Information Visit Type Treatment Note Visit Start Time 15:03 Visit Stop Time 15:47 Total Visit Minutes 44 Visit Number 13 Evaluation Information Evaluation Date 05/30/20 PT-OP-B Current Condition Start: 05/30/20 16:19 Freq: Status: Active Protocol: Document 05/30/20 12:15 DCW (Rec: 05/30/20 16:45 DCW [id number]) Current Condition History of Current Condition Onset Date Multi-year history, worsening in last year Current Complaints hip and low back pain, stiffness, muscle tightness History of Current Condition Pt is a 70 year old female presenting to skilled therapy with a multi-year history of low back and bilateral hip pain. Pt notes that over the last year, her pain has been worsening, she feels it mainly along the iliac crest along my back, and occasionally radiating down my legs. Reports her hip muscles had been really tight, but reports that about three weeks ago, so started a new medication from her doctor, which she can't remember the name of, and he told her that it was to help her muscles relax, but after researching it on her own, she found that it blocks pain receptors in the brain. Since starting this medication, she has been doing a lot better, but still experiences a lot of tightness in her muscles and stiffness in her hips. Pt reports that she typically has to take a break after walking 25 minutes, she feels like I need to just stop and stretch out if I go any longer than that. Pt also notes that she was diagnosed with a leg length discrepancy, reporting her left leg is shorter than her right. Pt was given orthortics to lift her left heel, but she feels that they are wearing down, and she is hoping she can get a new pair. Prior Treatments and Tests Lumbar X-ray:IMPRESSION: 1. Grade 1 L4-L5 degenerative spondylolisthesis. 2. Multilevel degenerative disease. 3. Multilevel facet arthropathy. 4. No fracture. No acute osseous lesion. If symptoms and/or clinical suspicion for pathology persists, evaluation with MRI may be helpful for further assessment. Jose Ash MD, PhD on 04/04/2020 Hip x-ray: IMPRESSION: Mild bilateral hip osteoarthritis. Per Keeley Ash MD, PhD on 04/04/2020 Treatment Goals Patient/Caregiver Goals I want to get back to walking more. I use to go for a walk with my dog, and could walk 2- 3 hours without resting. Now, this was 10-15 years ago, so I don't think I'll get fully back to that, but more than the 25 minutes I can do right now. PT-OP-C Subjective Start: 05/30/20 16:19 Freq: Status: Active Protocol: Document 08/11/20 15:03 LRN (Rec: 08/11/20 15:51 LRN [id number]) OP-PT Subjective Patient Comments Patient Comments Doing better than last time. PT-OP-F Manual Assessment Start: 05/30/20 16:19 Freq: Status: Active Protocol: Document 08/09/20 13:46 DCW (Rec: 08/09/20 15:16 DCW [id number]) Manual Assessments Soft Tissue Assessment Soft Tissue Mobility Assessment Moderate hypertonia with tenderness to palpation 2/4: Pain with wincing: Bilateral ITB, bilateral QL, bilateral psoas, bilateral piriformis, bilateral lumbar paraspinals PT-OP-J Posture/Palpation/Skin Start: 05/30/20 16:19 Freq: Status: Active Protocol: Document 05/30/20 12:15 DCW (Rec: 05/30/20 16:45 DCW [id number]) Posture Evaluation Comments Posture Comments Left leg length, ASIS to Medial malleolus: 87 cm Right leg length, ASIS to Medial malleolus: 90 cm PT-OP-L Special Tests Start: 05/30/20 16:19 Freq: Status: Active Protocol: Document 08/09/20 13:46 DCW (Rec: 08/09/20 15:16 DCW [id number]) Special Tests Lumbar Spine Special Tests IGOR Test Results Positive left ipsilateral anterior hip pain Straight Leg Raise Test Results HS tightness at 62? bilateral Hip Special Tests Piriformis Test Results Positive bilaterally Navya's test Test Results Positive bilaterally PT-OP-M Strength Start: 05/30/20 16:19 Freq: Status: Active Protocol: Document 08/09/20 13:46 DCW (Rec: 08/09/20 15:16 DCW [id number]) Hip Strength Hip Manual Muscle Testing Right Flexion (L2) 5 Normal Extension (S1) 4 Good Abduction 5 Normal Adduction 5 Normal Left Flexion (L2) 5 Normal Extension (S1) 4 Good Abduction 5 Normal Adduction 5 Normal Knee Strength Knee Manual Muscle Testing Right Flexion (S2) 5 Normal Extension (L3) 5 Normal Left Flexion (S2) 5 Normal Extension (L3) 5 Normal PT-OP-Q Treatments Start: 05/30/20 16:19 Freq: Status: Active Protocol: Document 08/11/20 15:03 LRN (Rec: 08/11/20 15:51 LRN [id number]) Gym Equipment Shuttle Recovery Unilateral Squats Resistance 62# Shuttle Recovery Platform Stable Reps/Time 10 x 3 Bilateral Squats Resistance 112# Shuttle Recovery Platform Stable Reps/Time x20 Therapeutic Exercises Supine Exercises Hamstring stretch w/ankle pumps Supine Exercise Name Hamstring stretch w/ankle pumps Side bilateral Reps/Minutes 5' Comments Extra time taken for maximal positioning. Bridging Supine Exercise Name Bridging Reps/Minutes 10x 3 Hip flexor stretch Supine Exercise Name Lonnie Test position f/b 10 active stretchs Side bilateral Comments Extra time taken to review proper positioning Piriformis stretch Supine Exercise Name Piriformis stretch Side bilateral Reps/Minutes 3' Other Exercises 1 Other Exercise Name Resisted Ambulation Resistance Green Equipment Used T-band Comments Lateral, Fwd, Bkwd Manual Therapy Treatment Soft Tissue Mobilization Hip Adductors Body Location Hip AD's Mobilization Type Trigger Point Release,Other Intensity/Depth Moderate Body Position Supine & sitting Comments JENNY stretch of manual therapy to hip AD's. 1 Body Location Psoas Mobilization Type Sustained Pressure,Other Intensity/Depth Superficial Body Position Sidelying Comments JENNY stretch of manual therapy to Psoas and Quads Self-Care/Home Management Treatment Education Patient Education Home Exercise Program Other Education Issued & reviewed HEP: Hamstring stretch & Hip flexor stretch in supine. PT-OP-R Modalities Start: 05/30/20 16:19 Freq: Status: Active Protocol: Document 08/01/20 13:36 LRN (Rec: 08/01/20 16:12 LRN [id number]) Hot Pack/Cold Pack Treatment Cold Pack Location L groin Patient Position Supine Treatment Duration (minutes) 8 Patient Tolerance Poor Comments Used during manual therapy to the R hip. PT-OP-T Assessment and Plan Start: 05/30/20 16:19 Freq: Status: Active Protocol: Document 08/11/20 15:03 LRN (Rec: 08/11/20 15:51 LRN [id number]) Physical Therapy Assessment Goals Three Impairment Hip stiffness: SLR limited to 50? Torch Straightener Goal (LTG) SLR to >80? bilaterally with no low back pain LTG Duration 10/18/20 Two Impairment Pt exhibits signs of lower cross syndrome Torch Straightener Goal (LTG) Lower cross syndrome is more an pattern of symptoms ( hypertonia in hip flexors/ lumbar paraspinals, weakness in core/hip extensors). Pt will exhibit 4+/5 in hip fextensors and TrA. Pt will additionally demonstrate a decrease in muscle tone of psoas to mild levels LTG Duration 10/18/20 One Impairment Pt does not have an appropriate home exercise program Short Term Goal (STG) Pt to be independent and compliant with an appropriate HEP STG Duration 09/09/20 Assessment Summary Assessment Pt is very tight and tender in hip AB. Pt able to perform self TrP release on hip AD's on self appropriately. Physical Therapy Plan Frequency and Duration Frequency of Treatment 2x/Week Duration of Treatment 10 weeks Plan of Care Start Date 08/09/20 Plan of Care End Date 10/18/20 Next Visit Focus/Plan Next Note Type Treatment Note Next Visit Plan Assess pt's consistency with HEP stretch and knowledge of self TrP release treatment. Flexibility, strengthening, Manual therapy
--- NOTE | 2020-08-18 12:15 | PT.OTN ---
Current Diagnoses Pain in unspecified hip (08/18/20) Stiffness of unspecified hip, not elsewhere classified (08/18/20) Low back pain (08/18/20) Muscle weakness (generalized) (08/18/20) Physical Therapy Treatment Note PT-OP-A Visit Information Start: 05/30/20 16:19 Freq: Status: Active Protocol: Document 08/18/20 12:15 DLM (Rec: 08/18/20 13:29 DLM [id number]) Out-Patient Physical Therapy Visit Information Visit Information Visit Type Treatment Note Visit Start Time 12:15 Visit Stop Time 13:05 Total Visit Minutes 50 Visit Number 14 Number of CANDLE WRAPPER Visits 0 Evaluation Information Evaluation Date 05/30/20 PT-OP-B Current Condition Start: 05/30/20 16:19 Freq: Status: Active Protocol: Document 05/30/20 12:15 DCW (Rec: 05/30/20 16:45 DCW [id number]) Current Condition History of Current Condition Onset Date Multi-year history, worsening in last year Current Complaints hip and low back pain, stiffness, muscle tightness History of Current Condition Pt is a 70 year old female presenting to skilled therapy with a multi-year history of low back and bilateral hip pain. Pt notes that over the last year, her pain has been worsening, she feels it mainly along the iliac crest along my back, and occasionally radiating down my legs. Reports her hip muscles had been really tight, but reports that about three weeks ago, so started a new medication from her doctor, which she can't remember the name of, and he told her that it was to help her muscles relax, but after researching it on her own, she found that it blocks pain receptors in the brain. Since starting this medication, she has been doing a lot better, but still experiences a lot of tightness in her muscles and stiffness in her hips. Pt reports that she typically has to take a break after walking 25 minutes, she feels like I need to just stop and stretch out if I go any longer than that. Pt also notes that she was diagnosed with a leg length discrepancy, reporting her left leg is shorter than her right. Pt was given orthortics to lift her left heel, but she feels that they are wearing down, and she is hoping she can get a new pair. Prior Treatments and Tests Lumbar X-ray:IMPRESSION: 1. Grade 1 L4-L5 degenerative spondylolisthesis. 2. Multilevel degenerative disease. 3. Multilevel facet arthropathy. 4. No fracture. No acute osseous lesion. If symptoms and/or clinical suspicion for pathology persists, evaluation with MRI may be helpful for further assessment. Jose Ash MD, PhD on 04/04/2020 Hip x-ray: IMPRESSION: Mild bilateral hip osteoarthritis. Per Keeley Ash MD, PhD on 04/04/2020 Treatment Goals Patient/Caregiver Goals I want to get back to walking more. I use to go for a walk with my dog, and could walk 2- 3 hours without resting. Now, this was 10-15 years ago, so I don't think I'll get fully back to that, but more than the 25 minutes I can do right now. PT-OP-C Subjective Start: 05/30/20 16:19 Freq: Status: Active Protocol: Document 08/18/20 12:15 DLM (Rec: 08/18/20 13:29 DLM [id number]) OP-PT Subjective Patient Comments Patient Comments She has no back pain at the start of this visit. She has had intermittent soreness right low back/buttock area lately. PT-OP-F Manual Assessment Start: 05/30/20 16:19 Freq: Status: Active Protocol: Document 08/09/20 13:46 DCW (Rec: 08/09/20 15:16 DCW [id number]) Manual Assessments Soft Tissue Assessment Soft Tissue Mobility Assessment Moderate hypertonia with tenderness to palpation 2/4: Pain with wincing: Bilateral ITB, bilateral QL, bilateral psoas, bilateral piriformis, bilateral lumbar paraspinals PT-OP-J Posture/Palpation/Skin Start: 05/30/20 16:19 Freq: Status: Active Protocol: Document 05/30/20 12:15 DCW (Rec: 05/30/20 16:45 DCW [id number]) Posture Evaluation Comments Posture Comments Left leg length, ASIS to Medial malleolus: 87 cm Right leg length, ASIS to Medial malleolus: 90 cm PT-OP-L Special Tests Start: 05/30/20 16:19 Freq: Status: Active Protocol: Document 08/09/20 13:46 DCW (Rec: 08/09/20 15:16 DCW [id number]) Special Tests Lumbar Spine Special Tests IGOR Test Results Positive left ipsilateral anterior hip pain Straight Leg Raise Test Results HS tightness at 62? bilateral Hip Special Tests Piriformis Test Results Positive bilaterally Navya's test Test Results Positive bilaterally PT-OP-M Strength Start: 05/30/20 16:19 Freq: Status: Active Protocol: Document 08/09/20 13:46 DCW (Rec: 08/09/20 15:16 DCW [id number]) Hip Strength Hip Manual Muscle Testing Right Flexion (L2) 5 Normal Extension (S1) 4 Good Abduction 5 Normal Adduction 5 Normal Left Flexion (L2) 5 Normal Extension (S1) 4 Good Abduction 5 Normal Adduction 5 Normal Knee Strength Knee Manual Muscle Testing Right Flexion (S2) 5 Normal Extension (L3) 5 Normal Left Flexion (S2) 5 Normal Extension (L3) 5 Normal PT-OP-Q Treatments Start: 05/30/20 16:19 Freq: Status: Active Protocol: Document 08/18/20 12:15 DLM (Rec: 08/18/20 13:29 DLM [id number]) Cardio Equipment Recumbent Elliptical (TrendBent) Duration (Minutes) 6 Resistance 5 Seat Position 10 Gym Equipment Shuttle Recovery Unilateral Squats Resistance 62# Shuttle Recovery Platform Stable Reps/Time 3 x 10 reps Bilateral Squats Resistance 112# Shuttle Recovery Platform Stable Reps/Time x 20 reps Therapeutic Exercises Supine Exercises Hamstring stretch w/ankle pumps Supine Exercise Name Hamstring stretch w/ankle pumps Side bilateral Reps/Minutes 5' Comments Extra time taken for maximal positioning. Bridging Supine Exercise Name Bridging Reps/Minutes 10 reps with 3 sec hold Comments right glut area sore after ex Hip flexor stretch Supine Exercise Name Lonnie Test position f/b 10 active stretchs Side bilateral Comments answered questions about position Piriformis stretch Supine Exercise Name Piriformis stretch Side bilateral Reps/Minutes 3' Other Exercises 1 Other Exercise Name Resisted Ambulation Resistance Green Equipment Used theraband loop Comments Lateral, Fwd, Bkwd Manual Therapy Treatment Soft Tissue Mobilization 4 Body Location right Gluteal Mobilization Type Cross-Friction,Strumming, Sustained Pressure Intensity/Depth Moderate Body Position Prone 2 Body Location Piriformis Mobilization Type Strumming,Sustained Pressure Intensity/Depth Moderate Body Position Prone Comments bilateral Self-Care/Home Management Treatment Education Patient Education Home Exercise Program Other Education pt reports not consistent with doing ex at home PT-OP-R Modalities Start: 05/30/20 16:19 Freq: Status: Active Protocol: Document 08/01/20 13:36 LRN (Rec: 08/01/20 16:12 LRN [id number]) Hot Pack/Cold Pack Treatment Cold Pack Location L groin Patient Position Supine Treatment Duration (minutes) 8 Patient Tolerance Poor Comments Used during manual therapy to the R hip. PT-OP-T Assessment and Plan Start: 05/30/20 16:19 Freq: Status: Active Protocol: Document 08/18/20 12:15 DLM (Rec: 08/18/20 13:29 DLM [id number]) Physical Therapy Assessment Goals Three Impairment Hip stiffness: SLR limited to 50? Mcc Goal (LTG) SLR to >80? bilaterally with no low back pain LTG Duration 10/18/20 Two Impairment Pt exhibits signs of lower cross syndrome Calender Feeder Goal (LTG) Lower cross syndrome is more an pattern of symptoms ( hypertonia in hip flexors/ lumbar paraspinals, weakness in core/hip extensors). Pt will exhibit 4+/5 in hip fextensors and TrA. Pt will additionally demonstrate a decrease in muscle tone of psoas to mild levels LTG Duration 10/18/20 One Impairment Pt does not have an appropriate home exercise program Short Term Goal (STG) Pt to be independent and compliant with an appropriate HEP STG Duration 09/09/20 Progress Towards Goals Progress Towards Goals Progressing Toward Goals Assessment Summary Assessment She tolerated treatment well over-all. Mild soreness right gluteal area and low back after bridging which needs to be monitored. Muscular weakness seen with exercises. She needs encouragement to do exercises and prefers manual therapy. Physical Therapy Plan Frequency and Duration Frequency of Treatment 2x/Week Duration of Treatment 10 weeks Plan of Care Start Date 08/09/20 Plan of Care End Date 10/18/20 Therapeutic Interventions Therapeutic Interventions Home Exercise Program,Joint Mobilizations,Manual Therapy, Patient/Caregiver Education, Self-Care/Home Management,Soft Tissue Mobilization, Therapeutic Activities, Therapeutic Exercises Modalities Cold Pack/Ice Massage,Electric Stimulation,Hot Packs, Ultrasound Next Visit Focus/Plan Next Note Type Treatment Note Next Visit Plan encourage HEP, continue strengthening
--- NOTE | 2020-08-26 14:29 | PT.OTN ---
Current Diagnoses Pain in unspecified hip (08/26/20) Stiffness of unspecified hip, not elsewhere classified (08/26/20) Low back pain (08/26/20) Muscle weakness (generalized) (08/26/20) Physical Therapy Treatment Note PT-OP-A Visit Information Start: 05/30/20 16:19 Freq: Status: Active Protocol: Document 08/26/20 13:48 DCW (Rec: 08/26/20 14:29 DCW [id number]) Out-Patient Physical Therapy Visit Information Visit Information Visit Type Treatment Note Visit Start Time 13:48 Visit Stop Time 14:30 Total Visit Minutes 42 Visit Number 15 Number of TRANSLATOR INTERPRETER Visits 0 Evaluation Information Evaluation Date 05/30/20 PT-OP-B Current Condition Start: 05/30/20 16:19 Freq: Status: Active Protocol: Document 05/30/20 12:15 DCW (Rec: 05/30/20 16:45 DCW [id number]) Current Condition History of Current Condition Onset Date Multi-year history, worsening in last year Current Complaints hip and low back pain, stiffness, muscle tightness History of Current Condition Pt is a 70 year old female presenting to skilled therapy with a multi-year history of low back and bilateral hip pain. Pt notes that over the last year, her pain has been worsening, she feels it mainly along the iliac crest along my back, and occasionally radiating down my legs. Reports her hip muscles had been really tight, but reports that about three weeks ago, so started a new medication from her doctor, which she can't remember the name of, and he told her that it was to help her muscles relax, but after researching it on her own, she found that it blocks pain receptors in the brain. Since starting this medication, she has been doing a lot better, but still experiences a lot of tightness in her muscles and stiffness in her hips. Pt reports that she typically has to take a break after walking 25 minutes, she feels like I need to just stop and stretch out if I go any longer than that. Pt also notes that she was diagnosed with a leg length discrepancy, reporting her left leg is shorter than her right. Pt was given orthortics to lift her left heel, but she feels that they are wearing down, and she is hoping she can get a new pair. Prior Treatments and Tests Lumbar X-ray:IMPRESSION: 1. Grade 1 L4-L5 degenerative spondylolisthesis. 2. Multilevel degenerative disease. 3. Multilevel facet arthropathy. 4. No fracture. No acute osseous lesion. If symptoms and/or clinical suspicion for pathology persists, evaluation with MRI may be helpful for further assessment. Per Keeley Ash MD, PhD on 04/04/2020 Hip x-ray: IMPRESSION: Mild bilateral hip osteoarthritis. Per Keeley Ash MD, PhD on 04/04/2020 Treatment Goals Patient/Caregiver Goals I want to get back to walking more. I use to go for a walk with my dog, and could walk 2- 3 hours without resting. Now, this was 10-15 years ago, so I don't think I'll get fully back to that, but more than the 25 minutes I can do right now. PT-OP-C Subjective Start: 05/30/20 16:19 Freq: Status: Active Protocol: Document 08/26/20 13:48 DCW (Rec: 08/26/20 14:29 DCW [id number]) OP-PT Subjective Patient Comments Patient Comments Pt reports she had had some increased pain the past few days, but is feeling better today. PT-OP-F Manual Assessment Start: 05/30/20 16:19 Freq: Status: Active Protocol: Document 08/09/20 13:46 DCW (Rec: 08/09/20 15:16 DCW [id number]) Manual Assessments Soft Tissue Assessment Soft Tissue Mobility Assessment Moderate hypertonia with tenderness to palpation 2/4: Pain with wincing: Bilateral ITB, bilateral QL, bilateral psoas, bilateral piriformis, bilateral lumbar paraspinals PT-OP-J Posture/Palpation/Skin Start: 05/30/20 16:19 Freq: Status: Active Protocol: Document 05/30/20 12:15 DCW (Rec: 05/30/20 16:45 DCW [id number]) Posture Evaluation Comments Posture Comments Left leg length, ASIS to Medial malleolus: 87 cm Right leg length, ASIS to Medial malleolus: 90 cm PT-OP-L Special Tests Start: 05/30/20 16:19 Freq: Status: Active Protocol: Document 08/09/20 13:46 DCW (Rec: 08/09/20 15:16 DCW [id number]) Special Tests Lumbar Spine Special Tests IGOR Test Results Positive left ipsilateral anterior hip pain Straight Leg Raise Test Results HS tightness at 62? bilateral Hip Special Tests Piriformis Test Results Positive bilaterally Navya's test Test Results Positive bilaterally PT-OP-M Strength Start: 05/30/20 16:19 Freq: Status: Active Protocol: Document 08/09/20 13:46 DCW (Rec: 08/09/20 15:16 DCW [id number]) Hip Strength Hip Manual Muscle Testing Right Flexion (L2) 5 Normal Extension (S1) 4 Good Abduction 5 Normal Adduction 5 Normal Left Flexion (L2) 5 Normal Extension (S1) 4 Good Abduction 5 Normal Adduction 5 Normal Knee Strength Knee Manual Muscle Testing Right Flexion (S2) 5 Normal Extension (L3) 5 Normal Left Flexion (S2) 5 Normal Extension (L3) 5 Normal PT-OP-Q Treatments Start: 05/30/20 16:19 Freq: Status: Active Protocol: Document 08/26/20 13:48 DCW (Rec: 08/26/20 14:29 DCW [id number]) Cardio Equipment Recumbent Elliptical ([employer]) Duration (Minutes) 6 Resistance 5 Seat Position 10 Gym Equipment Shuttle Recovery Unilateral Squats Resistance 62# Shuttle Recovery Platform Stable Reps/Time 2x10 Bilateral Squats Resistance 112# Shuttle Recovery Platform Stable Reps/Time x20 reps Therapeutic Exercises Supine Exercises Hamstring stretch w/ankle pumps Supine Exercise Name Hamstring stretch w/ankle pumps Side bilateral Reps/Minutes 5' Comments Extra time taken for maximal positioning. Piriformis stretch Supine Exercise Name Piriformis stretch Side bilateral Reps/Minutes 3' Other Exercises 1 Other Exercise Name Resisted Ambulation Resistance Green Equipment Used theraband loop Comments Lateral, Fwd, Bkwd Manual Therapy Treatment Soft Tissue Mobilization 2 Body Location Piriformis Mobilization Type Strumming,Sustained Pressure Intensity/Depth Moderate Body Position Prone Comments bilateral 1 Body Location Psoas Mobilization Type Sustained Pressure,Other Intensity/Depth Moderate Body Position Supine PT-OP-R Modalities Start: 05/30/20 16:19 Freq: Status: Active Protocol: Document 08/01/20 13:36 LRN (Rec: 08/01/20 16:12 LRN [id number]) Hot Pack/Cold Pack Treatment Cold Pack Location L groin Patient Position Supine Treatment Duration (minutes) 8 Patient Tolerance Poor Comments Used during manual therapy to the R hip. PT-OP-T Assessment and Plan Start: 05/30/20 16:19 Freq: Status: Active Protocol: Document 08/26/20 13:48 DCW (Rec: 08/26/20 14:29 DCW [id number]) Physical Therapy Assessment Goals Three Impairment Hip stiffness: SLR limited to 50? Manager Supply Goal (LTG) SLR to >80? bilaterally with no low back pain LTG Duration 10/18/20 Two Impairment Pt exhibits signs of lower cross syndrome Assisted Goal (LTG) Lower cross syndrome is more an pattern of symptoms ( hypertonia in hip flexors/ lumbar paraspinals, weakness in core/hip extensors). Pt will exhibit 4+/5 in hip fextensors and TrA. Pt will additionally demonstrate a decrease in muscle tone of psoas to mild levels LTG Duration 10/18/20 One Impairment Pt does not have an appropriate home exercise program Short Term Goal (STG) Pt to be independent and compliant with an appropriate HEP STG Duration 09/09/20 Progress Towards Goals Progress Towards Goals Progressing Toward Goals Assessment Summary Assessment Appears to be making good improvement, severity and frequency of pain has declined . Physical Therapy Plan Frequency and Duration Frequency of Treatment 2x/Week Duration of Treatment 10 weeks Plan of Care Start Date 08/09/20 Plan of Care End Date 10/18/20 Therapeutic Interventions Therapeutic Interventions Home Exercise Program,Joint Mobilizations,Manual Therapy, Patient/Caregiver Education, Self-Care/Home Management,Soft Tissue Mobilization, Therapeutic Activities, Therapeutic Exercises Modalities Cold Pack/Ice Massage,Electric Stimulation,Hot Packs, Ultrasound Next Visit Focus/Plan Next Note Type Treatment Note Next Visit Plan encourage HEP, continue strengthening
--- NOTE | 2020-08-29 10:31 | PT.OTN ---
Current Diagnoses Pain in unspecified hip (08/29/20) Stiffness of unspecified hip, not elsewhere classified (08/29/20) Low back pain (08/29/20) Muscle weakness (generalized) (08/29/20) Physical Therapy Treatment Note PT-OP-A Visit Information Start: 05/30/20 16:19 Freq: Status: Active Protocol: Document 08/29/20 09:49 DCW (Rec: 08/29/20 10:31 DCW [id number]) Out-Patient Physical Therapy Visit Information Visit Information Visit Type Treatment Note Visit Start Time 09:49 Visit Stop Time 10:30 Total Visit Minutes 41 Visit Number 16 Number of GLASS FITTER Visits 0 Evaluation Information Evaluation Date 05/30/20 PT-OP-B Current Condition Start: 05/30/20 16:19 Freq: Status: Active Protocol: Document 05/30/20 12:15 DCW (Rec: 05/30/20 16:45 DCW [id number]) Current Condition History of Current Condition Onset Date Multi-year history, worsening in last year Current Complaints hip and low back pain, stiffness, muscle tightness History of Current Condition Pt is a 70 year old female presenting to skilled therapy with a multi-year history of low back and bilateral hip pain. Pt notes that over the last year, her pain has been worsening, she feels it mainly along the iliac crest along my back, and occasionally radiating down my legs. Reports her hip muscles had been really tight, but reports that about three weeks ago, so started a new medication from her doctor, which she can't remember the name of, and he told her that it was to help her muscles relax, but after researching it on her own, she found that it blocks pain receptors in the brain. Since starting this medication, she has been doing a lot better, but still experiences a lot of tightness in her muscles and stiffness in her hips. Pt reports that she typically has to take a break after walking 25 minutes, she feels like I need to just stop and stretch out if I go any longer than that. Pt also notes that she was diagnosed with a leg length discrepancy, reporting her left leg is shorter than her right. Pt was given orthortics to lift her left heel, but she feels that they are wearing down, and she is hoping she can get a new pair. Prior Treatments and Tests Lumbar X-ray:IMPRESSION: 1. Grade 1 L4-L5 degenerative spondylolisthesis. 2. Multilevel degenerative disease. 3. Multilevel facet arthropathy. 4. No fracture. No acute osseous lesion. If symptoms and/or clinical suspicion for pathology persists, evaluation with MRI may be helpful for further assessment. Per Keeley Ash MD, PhD on 04/04/2020 Hip x-ray: IMPRESSION: Mild bilateral hip osteoarthritis. Per Keeley Ash MD, PhD on 04/04/2020 Treatment Goals Patient/Caregiver Goals I want to get back to walking more. I use to go for a walk with my dog, and could walk 2- 3 hours without resting. Now, this was 10-15 years ago, so I don't think I'll get fully back to that, but more than the 25 minutes I can do right now. PT-OP-C Subjective Start: 05/30/20 16:19 Freq: Status: Active Protocol: Document 08/29/20 09:49 DCW (Rec: 08/29/20 10:31 DCW [id number]) OP-PT Subjective Patient Comments Patient Comments I felt pretty good and relaxed Saturday after our time together, and I think I'm less achy today, maybe some small aches in the legs, but other than that I'm good. PT-OP-F Manual Assessment Start: 05/30/20 16:19 Freq: Status: Active Protocol: Document 08/09/20 13:46 DCW (Rec: 08/09/20 15:16 DCW [id number]) Manual Assessments Soft Tissue Assessment Soft Tissue Mobility Assessment Moderate hypertonia with tenderness to palpation 2/4: Pain with wincing: Bilateral ITB, bilateral QL, bilateral psoas, bilateral piriformis, bilateral lumbar paraspinals PT-OP-J Posture/Palpation/Skin Start: 05/30/20 16:19 Freq: Status: Active Protocol: Document 05/30/20 12:15 DCW (Rec: 05/30/20 16:45 DCW [id number]) Posture Evaluation Comments Posture Comments Left leg length, ASIS to Medial malleolus: 87 cm Right leg length, ASIS to Medial malleolus: 90 cm PT-OP-L Special Tests Start: 05/30/20 16:19 Freq: Status: Active Protocol: Document 08/09/20 13:46 DCW (Rec: 08/09/20 15:16 DCW [id number]) Special Tests Lumbar Spine Special Tests IGOR Test Results Positive left ipsilateral anterior hip pain Straight Leg Raise Test Results HS tightness at 62? bilateral Hip Special Tests Piriformis Test Results Positive bilaterally Navya's test Test Results Positive bilaterally PT-OP-M Strength Start: 05/30/20 16:19 Freq: Status: Active Protocol: Document 08/09/20 13:46 DCW (Rec: 08/09/20 15:16 DCW [id number]) Hip Strength Hip Manual Muscle Testing Right Flexion (L2) 5 Normal Extension (S1) 4 Good Abduction 5 Normal Adduction 5 Normal Left Flexion (L2) 5 Normal Extension (S1) 4 Good Abduction 5 Normal Adduction 5 Normal Knee Strength Knee Manual Muscle Testing Right Flexion (S2) 5 Normal Extension (L3) 5 Normal Left Flexion (S2) 5 Normal Extension (L3) 5 Normal PT-OP-Q Treatments Start: 05/30/20 16:19 Freq: Status: Active Protocol: Document 08/29/20 09:49 DCW (Rec: 08/29/20 10:31 DCW [id number]) Cardio Equipment Recumbent Elliptical ([employer]) Duration (Minutes) 6 Resistance 5 Seat Position 10 Gym Equipment Shuttle Recovery Unilateral Squats Resistance 62# Shuttle Recovery Platform Stable Reps/Time x20 each Bilateral Squats Resistance 112# Shuttle Recovery Platform Stable Reps/Time x20 reps Therapeutic Exercises Supine Exercises Hamstring stretch w/ankle pumps Supine Exercise Name Hamstring stretch w/ankle pumps Side bilateral Reps/Minutes 5' Comments Extra time taken for maximal positioning. Piriformis stretch Supine Exercise Name Piriformis stretch Side bilateral Reps/Minutes 3' Other Exercises 1 Other Exercise Name Resisted Ambulation Resistance Green Equipment Used theraband loop Comments Lateral, Fwd, Bkwd Manual Therapy Treatment Soft Tissue Mobilization 2 Body Location Piriformis Mobilization Type Strumming,Sustained Pressure Intensity/Depth Moderate Body Position Prone Comments bilateral 1 Body Location Psoas Mobilization Type Sustained Pressure,Other Intensity/Depth Moderate Body Position Supine PT-OP-R Modalities Start: 05/30/20 16:19 Freq: Status: Active Protocol: Document 08/01/20 13:36 LRN (Rec: 08/01/20 16:12 LRN [id number]) Hot Pack/Cold Pack Treatment Cold Pack Location L groin Patient Position Supine Treatment Duration (minutes) 8 Patient Tolerance Poor Comments Used during manual therapy to the R hip. PT-OP-T Assessment and Plan Start: 05/30/20 16:19 Freq: Status: Active Protocol: Document 08/29/20 09:49 DCW (Rec: 08/29/20 10:31 DCW [id number]) Physical Therapy Assessment Goals Three Impairment Hip stiffness: SLR limited to 50? Air Operations Manager Goal (LTG) SLR to >80? bilaterally with no low back pain LTG Duration 10/18/20 Two Impairment Pt exhibits signs of lower cross syndrome Air Operations Manager Goal (LTG) Lower cross syndrome is more an pattern of symptoms ( hypertonia in hip flexors/ lumbar paraspinals, weakness in core/hip extensors). Pt will exhibit 4+/5 in hip fextensors and TrA. Pt will additionally demonstrate a decrease in muscle tone of psoas to mild levels LTG Duration 10/18/20 One Impairment Pt does not have an appropriate home exercise program Short Term Goal (STG) Pt to be independent and compliant with an appropriate HEP STG Duration 09/09/20 Progress Towards Goals Progress Towards Goals Progressing Toward Goals Assessment Summary Assessment Pt moving pretty well today, continues to complain of needing to stop and take breaks when out walking. Physical Therapy Plan Frequency and Duration Frequency of Treatment 2x/Week Duration of Treatment 10 weeks Plan of Care Start Date 08/09/20 Plan of Care End Date 10/18/20 Therapeutic Interventions Therapeutic Interventions Home Exercise Program,Joint Mobilizations,Manual Therapy, Patient/Caregiver Education, Self-Care/Home Management,Soft Tissue Mobilization, Therapeutic Activities, Therapeutic Exercises Modalities Cold Pack/Ice Massage,Electric Stimulation,Hot Packs, Ultrasound Next Visit Focus/Plan Next Note Type Treatment Note Next Visit Plan encourage HEP, continue strengthening
--- NOTE | 2020-09-01 11:59 | PT.OTN ---
Current Diagnoses Pain in unspecified hip (09/01/20) Stiffness of unspecified hip, not elsewhere classified (09/01/20) Low back pain (09/01/20) Muscle weakness (generalized) (09/01/20) Physical Therapy Treatment Note PT-OP-A Visit Information Start: 05/30/20 16:19 Freq: Status: Active Protocol: Document 09/01/20 11:22 DCW (Rec: 09/01/20 11:59 DCW [id number]) Out-Patient Physical Therapy Visit Information Visit Information Visit Type Treatment Note Visit Note 7 min late Visit Start Time 11: Visit Stop Time 12:00 Total Visit Minutes 38 Visit Number 17 Number of BURLAP BAG SEWER Visits 0 Evaluation Information Evaluation Date 05/30/20 PT-OP-B Current Condition Start: 05/30/20 16:19 Freq: Status: Active Protocol: Document 05/30/20 12:15 DCW (Rec: 05/30/20 16:45 DCW [id number]) Current Condition History of Current Condition Onset Date Multi-year history, worsening in last year Current Complaints hip and low back pain, stiffness, muscle tightness History of Current Condition Pt is a 70 year old female presenting to skilled therapy with a multi-year history of low back and bilateral hip pain. Pt notes that over the last year, her pain has been worsening, she feels it mainly along the iliac crest along my back, and occasionally radiating down my legs. Reports her hip muscles had been really tight, but reports that about three weeks ago, so started a new medication from her doctor, which she can't remember the name of, and he told her that it was to help her muscles relax, but after researching it on her own, she found that it blocks pain receptors in the brain. Since starting this medication, she has been doing a lot better, but still experiences a lot of tightness in her muscles and stiffness in her hips. Pt reports that she typically has to take a break after walking 25 minutes, she feels like I need to just stop and stretch out if I go any longer than that. Pt also notes that she was diagnosed with a leg length discrepancy, reporting her left leg is shorter than her right. Pt was given orthortics to lift her left heel, but she feels that they are wearing down, and she is hoping she can get a new pair. Prior Treatments and Tests Lumbar X-ray:IMPRESSION: 1. Grade 1 L4-L5 degenerative spondylolisthesis. 2. Multilevel degenerative disease. 3. Multilevel facet arthropathy. 4. No fracture. No acute osseous lesion. If symptoms and/or clinical suspicion for pathology persists, evaluation with MRI may be helpful for further assessment. Per Keeley Ash MD, PhD on 04/04/2020 Hip x-ray: IMPRESSION: Mild bilateral hip osteoarthritis. Per Keeley Ash MD, PhD on 04/04/2020 Treatment Goals Patient/Caregiver Goals I want to get back to walking more. I use to go for a walk with my dog, and could walk 2- 3 hours without resting. Now, this was 10-15 years ago, so I don't think I'll get fully back to that, but more than the 25 minutes I can do right now. PT-OP-C Subjective Start: 05/30/20 16:19 Freq: Status: Active Protocol: Document 09/01/20 11:22 DCW (Rec: 09/01/20 11:59 DCW [id number]) OP-PT Subjective Patient Comments Patient Comments I've been running late and rushing around all morning, so I haven't really gotten a chance to think about how I'm feeling. PT-OP-F Manual Assessment Start: 05/30/20 16:19 Freq: Status: Active Protocol: Document 08/09/20 13:46 DCW (Rec: 08/09/20 15:16 DCW [id number]) Manual Assessments Soft Tissue Assessment Soft Tissue Mobility Assessment Moderate hypertonia with tenderness to palpation 2/4: Pain with wincing: Bilateral ITB, bilateral QL, bilateral psoas, bilateral piriformis, bilateral lumbar paraspinals PT-OP-J Posture/Palpation/Skin Start: 05/30/20 16:19 Freq: Status: Active Protocol: Document 05/30/20 12:15 DCW (Rec: 05/30/20 16:45 DCW [id number]) Posture Evaluation Comments Posture Comments Left leg length, ASIS to Medial malleolus: 87 cm Right leg length, ASIS to Medial malleolus: 90 cm PT-OP-L Special Tests Start: 05/30/20 16:19 Freq: Status: Active Protocol: Document 08/09/20 13:46 DCW (Rec: 08/09/20 15:16 DCW [id number]) Special Tests Lumbar Spine Special Tests IGOR Test Results Positive left ipsilateral anterior hip pain Straight Leg Raise Test Results HS tightness at 62? bilateral Hip Special Tests Piriformis Test Results Positive bilaterally Navya's test Test Results Positive bilaterally PT-OP-M Strength Start: 05/30/20 16:19 Freq: Status: Active Protocol: Document 08/09/20 13:46 DCW (Rec: 08/09/20 15:16 DCW [id number]) Hip Strength Hip Manual Muscle Testing Right Flexion (L2) 5 Normal Extension (S1) 4 Good Abduction 5 Normal Adduction 5 Normal Left Flexion (L2) 5 Normal Extension (S1) 4 Good Abduction 5 Normal Adduction 5 Normal Knee Strength Knee Manual Muscle Testing Right Flexion (S2) 5 Normal Extension (L3) 5 Normal Left Flexion (S2) 5 Normal Extension (L3) 5 Normal PT-OP-Q Treatments Start: 05/30/20 16:19 Freq: Status: Active Protocol: Document 09/01/20 11:22 DCW (Rec: 09/01/20 11:59 DCW [id number]) Cardio Equipment Recumbent Elliptical ([employer]) Duration (Minutes) 6 Resistance 5 Seat Position 10 Gym Equipment Shuttle Recovery Unilateral Squats Resistance 62# Shuttle Recovery Platform Stable Reps/Time x20 each Bilateral Squats Resistance 112# Shuttle Recovery Platform Stable Reps/Time x20 reps Therapeutic Exercises Supine Exercises Piriformis stretch Supine Exercise Name Piriformis stretch Side bilateral Reps/Minutes 3' Other Exercises 1 Other Exercise Name Resisted Ambulation Resistance Green Equipment Used theraband loop Comments Lateral, Fwd, Bkwd Manual Therapy Treatment Soft Tissue Mobilization 2 Body Location Piriformis Mobilization Type Strumming,Sustained Pressure Intensity/Depth Moderate Body Position Prone Comments bilateral 1 Body Location Psoas Mobilization Type Sustained Pressure,Other Intensity/Depth Moderate Body Position Supine PT-OP-R Modalities Start: 05/30/20 16:19 Freq: Status: Active Protocol: Document 08/01/20 13:36 LRN (Rec: 08/01/20 16:12 LRN [id number]) Hot Pack/Cold Pack Treatment Cold Pack Location L groin Patient Position Supine Treatment Duration (minutes) 8 Patient Tolerance Poor Comments Used during manual therapy to the R hip. PT-OP-T Assessment and Plan Start: 05/30/20 16:19 Freq: Status: Active Protocol: Document 09/01/20 11:22 DCW (Rec: 09/01/20 11:59 DCW [id number]) Physical Therapy Assessment Impairments Impairments Activity Tolerance,Functional Activities,Pain,Posture,ROM, Soft Tissue Mobility,Strength Goals Three Impairment Hip stiffness: SLR limited to 50? Snf Goal (LTG) SLR to >80? bilaterally with no low back pain LTG Duration 10/18/20 Two Impairment Pt exhibits signs of lower cross syndrome Snf Goal (LTG) Lower cross syndrome is more an pattern of symptoms ( hypertonia in hip flexors/ lumbar paraspinals, weakness in core/hip extensors). Pt will exhibit 4+/5 in hip fextensors and TrA. Pt will additionally demonstrate a decrease in muscle tone of psoas to mild levels LTG Duration 10/18/20 One Impairment Pt does not have an appropriate home exercise program Short Term Goal (STG) Pt to be independent and compliant with an appropriate HEP STG Duration 09/09/20 Progress Towards Goals Progress Towards Goals Progressing Toward Goals Assessment Summary Assessment Pt tolerated treatment very well today, not noticing much pain or stiffness throughout her session. Physical Therapy Plan Frequency and Duration Frequency of Treatment 2x/Week Duration of Treatment 10 weeks Plan of Care Start Date 08/09/20 Plan of Care End Date 10/18/20 Therapeutic Interventions Therapeutic Interventions Home Exercise Program,Joint Mobilizations,Manual Therapy, Patient/Caregiver Education, Self-Care/Home Management,Soft Tissue Mobilization, Therapeutic Activities, Therapeutic Exercises Modalities Cold Pack/Ice Massage,Electric Stimulation,Hot Packs, Ultrasound Next Visit Focus/Plan Next Note Type Treatment Note Next Visit Plan encourage HEP, continue strengthening
--- NOTE | 2020-12-08 14:42 | PT.OPDS ---
Current Diagnoses Pain in unspecified hip (09/01/20) Stiffness of unspecified hip, not elsewhere classified (09/01/20) Low back pain (09/01/20) Muscle weakness (generalized) (09/01/20) Visit Care Team Role Provider Type Gregg Hawthorne MD Attending Provider Physician Primary Care Provider Referring Provider Specialty: Wound Care Address: [address] [place] [address], [id number] Email: [email or web address] Visit Number Visit Number 17 Discharge Summary PT-OP-B Current Condition Start: 05/30/20 16:19 Freq: Status: Active Protocol: Document 05/30/20 12:15 DCW (Rec: 05/30/20 16:45 DCW [id number]) Current Condition History of Current Condition Onset Date Multi-year history, worsening in last year Current Complaints hip and low back pain, stiffness, muscle tightness History of Current Condition Pt is a 70 year old female presenting to skilled therapy with a multi-year history of low back and bilateral hip pain. Pt notes that over the last year, her pain has been worsening, she feels it mainly along the iliac crest along my back, and occasionally radiating down my legs. Reports her hip muscles had been really tight, but reports that about three weeks ago, so started a new medication from her doctor, which she can't remember the name of, and he told her that it was to help her muscles relax, but after researching it on her own, she found that it blocks pain receptors in the brain. Since starting this medication, she has been doing a lot better, but still experiences a lot of tightness in her muscles and stiffness in her hips. Pt reports that she typically has to take a break after walking 25 minutes, she feels like I need to just stop and stretch out if I go any longer than that. Pt also notes that she was diagnosed with a leg length discrepancy, reporting her left leg is shorter than her right. Pt was given orthortics to lift her left heel, but she feels that they are wearing down, and she is hoping she can get a new pair. Prior Treatments and Tests Lumbar X-ray:IMPRESSION: 1. Grade 1 L4-L5 degenerative spondylolisthesis. 2. Multilevel degenerative disease. 3. Multilevel facet arthropathy. 4. No fracture. No acute osseous lesion. If symptoms and/or clinical suspicion for pathology persists, evaluation with MRI may be helpful for further assessment. Per Keeley Ash MD, PhD on 04/04/2020 Hip x-ray: IMPRESSION: Mild bilateral hip osteoarthritis. Per Keeley Ash MD, PhD on 04/04/2020 Treatment Goals Patient/Caregiver Goals I want to get back to walking more. I use to go for a walk with my dog, and could walk 2- 3 hours without resting. Now, this was 10-15 years ago, so I don't think I'll get fully back to that, but more than the 25 minutes I can do right now. PT-OP-C Subjective Start: 05/30/20 16:19 Freq: Status: Active Protocol: Document 09/01/20 11:22 DCW (Rec: 09/01/20 11:59 DCW [id number]) OP-PT Subjective Patient Comments Patient Comments I've been running late and rushing around all morning, so I haven't really gotten a chance to think about how I'm feeling. PT-OP-F Manual Assessment Start: 05/30/20 16:19 Freq: Status: Active Protocol: Document 08/09/20 13:46 DCW (Rec: 08/09/20 15:16 DCW [id number]) Manual Assessments Soft Tissue Assessment Soft Tissue Mobility Assessment Moderate hypertonia with tenderness to palpation 2/4: Pain with wincing: Bilateral ITB, bilateral QL, bilateral psoas, bilateral piriformis, bilateral lumbar paraspinals PT-OP-J Posture/Palpation/Skin Start: 05/30/20 16:19 Freq: Status: Active Protocol: Document 05/30/20 12:15 DCW (Rec: 05/30/20 16:45 DCW [id number]) Posture Evaluation Comments Posture Comments Left leg length, ASIS to Medial malleolus: 87 cm Right leg length, ASIS to Medial malleolus: 90 cm PT-OP-L Special Tests Start: 05/30/20 16:19 Freq: Status: Active Protocol: Document 08/09/20 13:46 DCW (Rec: 08/09/20 15:16 DCW [id number]) Special Tests Lumbar Spine Special Tests IGOR Test Results Positive left ipsilateral anterior hip pain Straight Leg Raise Test Results HS tightness at 62? bilateral Hip Special Tests Piriformis Test Results Positive bilaterally Navya's test Test Results Positive bilaterally PT-OP-M Strength Start: 05/30/20 16:19 Freq: Status: Active Protocol: Document 08/09/20 13:46 DCW (Rec: 08/09/20 15:16 DCW [id number]) Hip Strength Hip Manual Muscle Testing Right Flexion (L2) 5 Normal Extension (S1) 4 Good Abduction 5 Normal Adduction 5 Normal Left Flexion (L2) 5 Normal Extension (S1) 4 Good Abduction 5 Normal Adduction 5 Normal Knee Strength Knee Manual Muscle Testing Right Flexion (S2) 5 Normal Extension (L3) 5 Normal Left Flexion (S2) 5 Normal Extension (L3) 5 Normal PT-OP-T Assessment and Plan Start: 05/30/20 16:19 Freq: Status: Active Protocol: Document 12/08/20 14:42 DCW (Rec: 12/08/20 14:42 DCW [id number]) Physical Therapy Assessment Assessment Summary Assessment Pt has not made any further follow-up appointments, and has now not been seen in more than three months. Pt will be discharged from PT at this time, and will require a new referral in order to return to skilled therapy. Physical Therapy Plan Discharge Physical Therapy Discharge Reasons No Longer Attending PT
== END 2020-12-23 09:48 ==
LOC: PHYS 11:15
PROVIDERS: PCP Internal Medicine; Referring Provider Internal Medicine; Visit Provider Internal Medicine
DX: M54.5 Low back pain (principal); M25.559 Pain in unspecified hip; M25.659 Stiffness of unspecified hip, not elsewhere classified; M62.81 Muscle weakness (generalized)
CPT/HCPCS: 97110; 97112; 97140; 97161

== ENCOUNTER → 2020-10-04 16:57 | Outpatient (ROUT) | payer MEDICARE, SELFPAY ==
[2020-10-04 17:11] LABS: Alanine Aminotransferase 20 IU/L (<35); Albumin Globulin Ratio 1.5 (1.0-2.8); Alkaline Phosphatase 98 U/L (38-126); Aspartate Aminotransferase 20 IU/L (14-36); BUN Creatinine Ratio 31.1 (6-22); Bilirubin Total 0.3 mg/dL (0.2-1.3); Blood Urea Nitrogen 19 mg/dL (7-17); Calcium 9.5 mg/dL (8.4-10.2); Carbon Dioxide 27 mmol/L (22-32); Chloride 103 mmol/L (98-107); Cholesterol 152 mg/dL (140-199); Estimated Glomerular Filt Rate > 60.0 mL/min (>60); Globulin 2.7 g/dL (1.7-4.1); Glucose 181 mg/dL (80-110); HDL Cholesterol 44 mg/dL (40-60); HEMOLYSIS < 15 (0-50); LDL Cholesterol Calculated 87 mg/dL (<100); Potassium 4.4 mmol/L (3.4-5.1); Sodium 136 mmol/L (137-145); Total Protein 6.7 g/dL (6.3-8.2); Triglycerides 107 mg/dL (35-150)
[2020-10-04 17:14] LABS: Hemoglobin A1C% w Est Avg Glu 7.9 % (4.0-6.0)
[2020-10-04 17:41] LABS: Thyroid Stimulating Hormone 4.45 uIU/mL (0.47-4.68)
== END ==
PROVIDERS: PCP Internal Medicine; Visit Provider Internal Medicine
DX: E66.9 Obesity, unspecified (principal)
CPT/HCPCS: 80053; 80061; 83036; 84443

== ENCOUNTER → 2020-11-25 08:19 | Outpatient (CLI) | payer MEDICARE, SELFPAY ==
[2020-11-25] MEDS: COVID-19 VACC #1, MRNA(MOD) 100 MCG/0.5 ML VIAL IM (08:27)
== END ==
PROVIDERS: PCP Internal Medicine; Visit Provider Internal Medicine
DX: Z23 Encounter for immunization (principal)
CPT/HCPCS: 0011A; 91301

== ENCOUNTER → 2020-12-23 08:18 | Outpatient (CLI) | payer MEDICARE, SELFPAY ==
[2020-12-23] MEDS: COVID-19 VACC #2, MRNA(MOD) 100 MCG/0.5 ML VIAL IM (08:21)
== END ==
PROVIDERS: PCP Internal Medicine; Visit Provider Internal Medicine
DX: Z23 Encounter for immunization (principal)
CPT/HCPCS: 0012A; 91301

== ENCOUNTER → 2021-01-10 18:49 | Outpatient (ROUT) | payer OTHER, SELFPAY ==
[2021-01-10 19:27] LABS: Hemoglobin A1C% w Est Avg Glu 7.9 % (4.0-6.0)
== END ==
PROVIDERS: PCP Internal Medicine; Visit Provider Internal Medicine
DX: E11.9 Type 2 diabetes mellitus without complications (principal)
CPT/HCPCS: 83036

== ENCOUNTER → 2021-03-29 07:25 | Outpatient (CLI) | payer MEDICARE, SELFPAY ==
[2021-03-29 08:11] LABS: Hemoglobin A1C% w Est Avg Glu 8.3 % (4.0-6.0)
[2021-03-29 08:12] LABS: Alanine Aminotransferase 22 IU/L (<35); Albumin 4.1 g/dL (3.5-5.0); Albumin Globulin Ratio 1.4 (1.0-2.8); Alkaline Phosphatase 94 U/L (38-126); Aspartate Aminotransferase 23 IU/L (14-36); BUN Creatinine Ratio 30.5 (6-22); Bilirubin Total 0.2 mg/dL (0.2-1.3); Blood Urea Nitrogen 18 mg/dL (7-17); Calcium 9.9 mg/dL (8.4-10.2); Carbon Dioxide 26 mmol/L (22-32); Chloride 101 mmol/L (98-107); Cholesterol 196 mg/dL (140-199); Estimated Glomerular Filt Rate > 60.0 mL/min (>60); Glucose 172 mg/dL (80-110); HDL Cholesterol 51 mg/dL (40-60); HEMOLYSIS < 15 (0-50); LDL Cholesterol Calculated 120 mg/dL (<100); Potassium 4.1 mmol/L (3.4-5.1); Sodium 136 mmol/L (137-145); Total Protein 7.1 g/dL (6.3-8.2); Triglycerides 123 mg/dL (35-150)
[2021-03-29 08:34] LABS: Free T4, Direct Thyroxine 1.38 ng/dL (0.78-2.19)
[2021-03-29 08:48] LABS: Thyroid Stimulating Hormone 4.63 uIU/mL (0.47-4.68)
== END ==
PROVIDERS: PCP Internal Medicine; Referring Provider Internal Medicine; Visit Provider Internal Medicine
DX: E11.9 Type 2 diabetes mellitus without complications (principal); E03.9 Hypothyroidism, unspecified; G89.29 Other chronic pain; M54.9 Dorsalgia, unspecified
CPT/HCPCS: 36415; 80053; 80061; 83036; 84439; 84443

== ENCOUNTER → 2021-06-14 11:13 | Outpatient (CLI) | payer MEDICARE, SELFPAY ==
[2021-06-14 13:51] LABS: COVID19 -Nasal RAPID Negative (Negative)
== END ==
PROVIDERS: PCP Internal Medicine; Visit Provider Nurse Practitioner
DX: Z20.822 Contact with and (suspected) exposure to COVID-19 (principal); Z01.812 Encounter for preprocedural laboratory examination
CPT/HCPCS: 87635

== ENCOUNTER → 2021-06-15 13:09 | Outpatient (CLI) | payer MEDICARE, SELFPAY ==
--- NOTE | 2021-06-15 14:17 | PM.TREADMILL ---
Cardiac Stress Test Report Referral & Results Date Patient Seen: 06/15/21 Requesting provider: Joesph Martinez Indication: Atypical chest pain Rest ECG: Unremarkable Procedure Note: Today following both written and verbal informed consent, the patient was exercised according to a standard Jasen protocol. The patient exercised for a total of 7 minutes 3 seconds achieving a maximum heart rate of 155. Patient's maximum systolic blood pressure was 202. This was an estimated 10.1 MET's. There are no ST-T segment changes identified Normal heart rate and blood pressure response to exercise Function aerobic impairment rates approximately -20% on the active scale or 120% of normal Impression: No evidence of ischemia Patient is reassured, symptoms are almost assuredly noncardiac in nature Please note: Actual ECG tracings can be found in the PACS system.
== END ==
PROVIDERS: PCP Internal Medicine; Referring Provider Internal Medicine; Visit Provider Internal Medicine
DX: R07.89 Other chest pain (principal)
CPT/HCPCS: 93016; 93017; 93018

== ENCOUNTER → 2021-06-28 09:11 | Outpatient (CLI) | payer MEDICARE, SELFPAY ==
[2021-06-28 12:23] LABS: Hemoglobin A1C% w Est Avg Glu 7.8 % (4.0-6.0)
[2021-06-28 13:21] LABS: BUN Creatinine Ratio 31.5 (6-22); Blood Urea Nitrogen 17 mg/dL (7-17); Calcium 9.6 mg/dL (8.4-10.2); Carbon Dioxide 24 mmol/L (22-32); Chloride 102 mmol/L (98-107); Estimated Glomerular Filt Rate > 60.0 mL/min (>60); Glucose 205 mg/dL (80-110); HEMOLYSIS < 15 (0-50); Potassium 4.6 mmol/L (3.4-5.1); Sodium 135 mmol/L (137-145)
== END ==
PROVIDERS: PCP Internal Medicine; Referring Provider Internal Medicine; Visit Provider Internal Medicine
DX: E11.65 Type 2 diabetes mellitus with hyperglycemia (principal); E03.9 Hypothyroidism, unspecified
CPT/HCPCS: 36415; 80048; 83036

== ENCOUNTER → 2021-08-15 | Outpatient (CLI) | payer MEDICARE, SELFPAY | PROVIDERS: PCP Internal Medicine; Referring Provider Internal Medicine; Visit Provider Internal Medicine | DX: Z23 Encounter for immunization (principal) | CPT/HCPCS: 90471; 90662 ==

== ENCOUNTER → 2021-09-01 11:43 | Outpatient (CLI) | payer MEDICARE, SELFPAY ==
[2021-09-01 14:02] LABS: Erythrocyte Sedimentation Rate 26 MM/HR (0-20)
[2021-09-01 14:20] LABS: Alanine Aminotransferase 20 IU/L (<35); Albumin 4.1 g/dL (3.5-5.0); Albumin Globulin Ratio 1.6 (1.0-2.8); Alkaline Phosphatase 90 U/L (38-126); Aspartate Aminotransferase 19 IU/L (14-36); Bilirubin Total 0.4 mg/dL (0.2-1.3); Bilirubin Unconjugated 0.3 mg/dL (0.0-1.1); Blood Urea Nitrogen 13 mg/dL (7-17); C-Reactive Protein Quant < 0.5 mg/dL (<1.0); Calcium 9.8 mg/dL (8.4-10.2); Carbon Dioxide 24 mmol/L (22-32); Chloride 101 mmol/L (98-107); Estimated Glomerular Filt Rate > 60.0 mL/min (>60); Globulin 2.5 g/dL (1.7-4.1); Glucose 262 mg/dL (80-110); HEMOLYSIS < 15 (0-50); Potassium 4.5 mmol/L (3.4-5.1); Sodium 137 mmol/L (137-145); Total Protein 6.6 g/dL (6.3-8.2)
[2021-09-01 14:28] LABS: Free T4, Direct Thyroxine 1.19 ng/dL (0.78-2.19)
== END ==
PROVIDERS: PCP Internal Medicine; Referring Provider Internal Medicine; Visit Provider Internal Medicine
DX: R19.7 Diarrhea, unspecified (principal); R53.83 Other fatigue
CPT/HCPCS: 36415; 80048; 80076; 84439; 84443; 85651; 86140

== ENCOUNTER → 2021-09-02 11:41 | Outpatient (CLI) | payer MEDICARE, SELFPAY | PROVIDERS: PCP Internal Medicine; Referring Provider Internal Medicine; Visit Provider Internal Medicine | DX: R19.7 Diarrhea, unspecified (principal); R53.83 Other fatigue | CPT/HCPCS: 87045; 87899 ==

== ENCOUNTER → 2021-09-04 11:19 | Outpatient (CLI) | payer MEDICARE, SELFPAY ==
[2021-09-04 12:39] LABS: Clostridium Difficile Tox PCR Negative for C. diff (Negative)
== END ==
PROVIDERS: PCP Internal Medicine; Referring Provider Internal Medicine; Visit Provider Internal Medicine
DX: R19.7 Diarrhea, unspecified (principal); R53.83 Other fatigue
CPT/HCPCS: 87493

== ENCOUNTER → 2021-09-12 15:51 | Outpatient (CLI) | payer MEDICARE, SELFPAY ==
--- NOTE | 2021-09-12 | DI.MG.S_ITS ---
BILATERAL DIGITAL SCREENING MAMMOGRAM 3D/2D WITH CAD: 09/12/2021 CLINICAL: Routine screening. Baseline exam. No prior exams were available for comparison. The tissue of both breasts is predominantly fatty. Current study was also evaluated with a Computer Aided Detection (CAD) system. There are benign calcifications in the right breast. No significant masses, calcifications, or other findings are seen in either breast. IMPRESSION: BENIGN There is no mammographic evidence of malignancy. A 1 year screening mammogram is recommended. This exam was interpreted at Station ID: [id number]. NOTE: For mammograms, a report in lay terms will be sent to the patient. Approximately 15% of breast malignancies will not be visualized mammographically. In the management of a palpable breast mass, a negative mammogram must not discourage biopsy of a clinically suspicious lesion. Electronically Signed By: Diana tran/alli:09/12/2021 17:04:48 letter sent: Normal Exam ACR BI-RADS Category 2: Benign Finding(s) 3342F
== END ==
PROVIDERS: PCP Internal Medicine; Referring Provider Internal Medicine; Visit Provider Internal Medicine
DX: Z12.31 Encounter for screening mammogram for malignant neoplasm of breast (principal)
CPT/HCPCS: 77063; 77067

== ENCOUNTER → 2021-09-19 09:15 | Outpatient (CLI) | payer MEDICARE, SELFPAY ==
[2021-09-19 10:52] LABS: Hemoglobin A1C% w Est Avg Glu 7.9 % (4.0-6.0)
[2021-09-19 11:01] LABS: Alanine Aminotransferase 20 IU/L (<35); Albumin Globulin Ratio 1.5 (1.0-2.8); Alkaline Phosphatase 85 U/L (38-126); Aspartate Aminotransferase 18 IU/L (14-36); Bilirubin Total 0.2 mg/dL (0.2-1.3); Blood Urea Nitrogen 18 mg/dL (7-17); Calcium 9.3 mg/dL (8.4-10.2); Carbon Dioxide 26 mmol/L (22-32); Chloride 101 mmol/L (98-107); Estimated Glomerular Filt Rate > 60.0 mL/min (>60); Globulin 2.7 g/dL (1.7-4.1); Glucose 230 mg/dL (80-110); HEMOLYSIS < 15 (0-50); Potassium 4.7 mmol/L (3.4-5.1); Sodium 136 mmol/L (137-145); Total Protein 6.7 g/dL (6.3-8.2)
[2021-09-19 12:48] LABS: Microalbumi Creatinin Ratio Ur 15.8 ug/mg CR (<30); Microalbumin Urine Random 1.3 mg/dL (0-1.6)
== END ==
PROVIDERS: PCP Internal Medicine; Referring Provider Internal Medicine; Visit Provider Internal Medicine
DX: E11.65 Type 2 diabetes mellitus with hyperglycemia (principal); E03.9 Hypothyroidism, unspecified
CPT/HCPCS: 36415; 80053; 82043; 82570; 83036

== ENCOUNTER → 2021-12-29 09:17 | Outpatient (CLI) | payer MEDICARE, SELFPAY ==
[2021-12-29 10:35] LABS: Hemoglobin A1C% w Est Avg Glu 9.4 % (4.0-6.0)
[2021-12-29 10:44] LABS: Alanine Aminotransferase 19 IU/L (<35); Albumin 4.2 g/dL (3.5-5.0); Albumin Globulin Ratio 1.6 (1.0-2.8); Alkaline Phosphatase 87 U/L (38-126); Aspartate Aminotransferase 18 IU/L (14-36); BUN Creatinine Ratio 27.3 (6-22); Bilirubin Total 0.5 mg/dL (0.2-1.3); Blood Urea Nitrogen 18 mg/dL (7-17); Calcium 9.4 mg/dL (8.4-10.2); Carbon Dioxide 26 mmol/L (22-32); Chloride 101 mmol/L (98-107); Estimated Glomerular Filt Rate > 60.0 mL/min (>60); Globulin 2.7 g/dL (1.7-4.1); Glucose 259 mg/dL (80-110); HEMOLYSIS < 15 (0-50); Potassium 4.5 mmol/L (3.4-5.1); Sodium 136 mmol/L (137-145); Total Protein 6.9 g/dL (6.3-8.2)
== END ==
PROVIDERS: PCP Internal Medicine; Referring Provider Internal Medicine; Visit Provider Internal Medicine
DX: E11.9 Type 2 diabetes mellitus without complications (principal); Z79.4 Long term (current) use of insulin
CPT/HCPCS: 36415; 80053; 83036

== ENCOUNTER → 2022-02-13 | Outpatient (CLI) | payer MEDICARE, SELFPAY | LOC: SP 14:02 | PROVIDERS: Family Provider Internal Medicine; PCP Internal Medicine; Referring Provider Internal Medicine; Visit Provider Internal Medicine ==

== ENCOUNTER → 2022-03-29 07:28 | Outpatient (CLI) | payer MEDICARE, SELFPAY ==
[2022-03-29 08:53] LABS: Hemoglobin A1C% w Est Avg Glu 9.4 % (4.0-6.0)
[2022-03-29 08:58] LABS: Appearance Urine UA CLEAR; Bacteria Urine Occasional (0-1); Bilirubin Urine UA NEGATIVE (NEGATIVE); Color Urine UA YELLOW; Culture Indicated Urine Cult Not Indicated; Glucose Urine UA NEGATIVE (Negative); Ketones Urine UA NEGATIVE (NEGATIVE); Leukocyte Esterase Urine UA NEGATIVE (NEGATIVE); Nitrite Urine UA NEGATIVE (Negative); Occult Blood Urine UA NEGATIVE (Negative); Protein Urine UA NEGATIVE (Negative); RBC Urine None Seen (0-5/HPF); Urobilinogen Urine UA 0.2 E.U./dL (0.2); WBC Urine 0-1/HPF (0-5/HPF); pH Urine UA 5.5 (4.5-8.0)
[2022-03-29 09:14] LABS: Creatinine Urine Random 31.3 mg/dL
[2022-03-29 09:15] LABS: BUN Creatinine Ratio 28.6 (6-22); Blood Urea Nitrogen 18 mg/dL (7-17); Carbon Dioxide 25 mmol/L (22-32); Chloride 104 mmol/L (98-107); Estimated Glomerular Filt Rate > 60 mL/min (>60); Glucose 221 mg/dL (80-110); HEMOLYSIS < 15 (0-50); Potassium 4.4 mmol/L (3.4-5.1); Sodium 136 mmol/L (137-145)
[2022-03-29 09:18] LABS: Microalbumin Urine Random < 0.6 mg/dL (0-1.6)
== END ==
PROVIDERS: Family Provider Internal Medicine; PCP Internal Medicine; Referring Provider Internal Medicine; Visit Provider Internal Medicine
DX: E11.9 Type 2 diabetes mellitus without complications (principal); E66.9 Obesity, unspecified; G40.909 Epilepsy, unspecified, not intractable, without status epilepticus; Z79.4 Long term (current) use of insulin
CPT/HCPCS: 36415; 80048; 81001; 82043; 82570; 83036

== ENCOUNTER → 2022-05-17 07:14 | Outpatient (CLI) | payer MEDICARE, SELFPAY ==
[2022-05-17 09:15] LABS: BUN Creatinine Ratio 37.7 (6-22); Blood Urea Nitrogen 26 mg/dL (7-17); Calcium 9.6 mg/dL (8.4-10.2); Carbon Dioxide 21 mmol/L (22-32); Chloride 107 mmol/L (98-107); Estimated Glomerular Filt Rate > 60 mL/min (>60); Glucose 217 mg/dL (80-110); HEMOLYSIS < 15 (0-50); Phosphorous 4.2 mg/dL (2.8-4.1); Potassium 4.4 mmol/L (3.4-5.1); Sodium 139 mmol/L (137-145)
== END ==
PROVIDERS: Family Provider Internal Medicine; PCP Internal Medicine; Referring Provider Internal Medicine Endocrinology, Diabetes & Metabolism; Visit Provider Internal Medicine Endocrinology, Diabetes & Metabolism
DX: E11.9 Type 2 diabetes mellitus without complications (principal); Z79.4 Long term (current) use of insulin
CPT/HCPCS: 36415; 80069

== ENCOUNTER → 2022-06-05 13:00 | Outpatient (CLI) | payer MEDICARE, SELFPAY ==
[2022-06-05 13:48] LABS: Appearance Urine UA CLEAR; Bilirubin Urine UA NEGATIVE (NEGATIVE); Color Urine UA YELLOW; Glucose Urine UA 2+ g/dL (Negative); Ketones Urine UA NEGATIVE (NEGATIVE); Leukocyte Esterase Urine UA NEGATIVE (NEGATIVE); Nitrite Urine UA NEGATIVE (Negative); Occult Blood Urine UA NEGATIVE (Negative); Protein Urine UA NEGATIVE (Negative); Specific Gravity Urine UA 1.015 (1.000-1.035); Urobilinogen Urine UA 0.2 E.U./dL (0.2)
[2022-06-05 14:01] LABS: RBC Urine None Seen (0-5/HPF); Squamous Epithelial Cell Urine None Seen (0-5/HPF); WBC Urine None Seen (0-5/HPF)
[2022-06-05 14:02] LABS: Bacteria Urine None Seen; Culture Indicated Urine Cult Not Indicated
== END ==
PROVIDERS: Family Provider Internal Medicine; PCP Internal Medicine; Referring Provider Internal Medicine; Visit Provider Internal Medicine
DX: R30.0 Dysuria (principal)
CPT/HCPCS: 81001

== ENCOUNTER 2022-06-19 14:30 | Outpatient (RCR) | payer MEDICARE, SELFPAY ==
--- NOTE | 2022-02-13 15:08 | PT.OIE ---
Current Diagnoses Pain in unspecified hip (02/13/22) Dorsalgia, unspecified (02/13/22) Muscle weakness (generalized) (02/13/22) Other abnormalities of gait and mobility (02/13/22) Past Medical History (Last Updated 01/03/22 @ 16:49 by Em Benson, [facility]) Acquired hypothyroidism (~1998) Carpal tunnel syndrome Chicken pox (~1954) Chronic back pain Fractures (~2003) History of ankle surgery (~2003) Measles (~1950) Mumps (~1950) Obesity (BMI 30.0-34.9) Plantar warts (~1959) Pneumonia S/P cataract extraction (~2016) S/P tonsillectomy and adenoidectomy (~1955) Seborrheic dermatitis Seizure disorder (~2008) Skin cancer (~2013) Sleep apnea in adult (~2013) Type 2 diabetes mellitus (~2003) Type 2 diabetes mellitus with hyperglycemia Past Surgical History (Last Updated 04/01/21 @ 13:53 by Vera Maynard) Anesthesia History of ankle surgery (~2003) History of ectopic (~1976) S/P cataract extraction (~2016) S/P tonsillectomy and adenoidectomy (~1955) Visit Care Team Role Provider Type Joesph Martinez MD Attending Provider Physician Family Provider Primary Care Provider Referring Provider Specialty: Internal Medicine Address: [address] [place] [address], [address], [facility] Email: [email or web address] Physical Therapy Initial Evaluation PT-OP-A Visit Information Start: 02/09/22 17:26 Freq: Status: Active Protocol: Document 02/13/22 13:04 LRN (Rec: 02/13/22 15:04 LRN [id number]) Out-Patient Physical Therapy Visit Information Visit Information Visit Type Initial Evaluation Visit Start Time 13:04 Visit Stop Time 13:46 Total Visit Minutes 42 Visit Number 1 Evaluation Information Evaluation Date 02/13/22 Precautions Precautions Type 2 Diabetes mellitus, blood sugar levels unstable, fractured L ankle with isabel in tibia, with plates and screws at L ankle. Record review indicates: Seizure disorder~ 2008, skin cancer ~2013, Obesity 02/08/22 (BMI 30.0-34.9 ) PT-OP-B Current Condition Start: 02/09/22 17:26 Freq: Status: Active Protocol: Document 02/13/22 13:04 LRN (Rec: 02/13/22 15:04 LRN [id number]) Current Condition History of Current Condition Onset Date 09/2020. Problem with walking in 2019. Current Complaints Lower back and bursitis pain, sometime legs give out due to pain, ache. History of Current Condition Has had lower back pain and bilateral bursitis since 2019. Has had bursitis one or two times in the past. Pt doesn't think about her pain and has difficulty identifying her pain intensity. She has tight IT Bands with tenderness noted. Her L leg aches sometimes and with sit to stand sometimes the leg gives out. She sometimes takes IBP. Has been having pains in the buttocks that her spouse thinks is her sciatic nerve. Has midback pain 40-50% of the time. Can't do housework for > 1/2 hr. Leg length dicrepancy with L leg 1 shorter than the R. Lift in L shoe put in 2019 by steeple jack. Prior Treatments and Tests P.T. at [facility] from winter to winter but discontinued due to Covid fears. P.T. with Joesph Dias in Nov 2021, for 1-1.5 months, but was getting an emotional trigger and couldn't continue; therefore wants a female therapist. She states her pain did lessen overall some. She wasn't always consistent with her exercises. X-rays of L/S: Grade 1 L4-L5 degenerative spondylolisthesis , Multilevel degenerative disease, Multilevel facet arthropathy. Developmental History Developmental History Tailbone injury at 18 yo. Treatment Goals Patient/Caregiver Goals Pt goal: Exercise to reduce pain so that it doesn't interrupt her while she walks (Walking 10-15' LB becomes so tight that she needs to stretch out her low back), month ago pain in legs started and would like it to go away, eliminate balance problems. Prior Functional Status Baseline Function- ADL's Independent Baseline Function- Mobility Independent Baseline Function- Gait Before 2019 didn't notice back being a hinderance with hiking, walking. Baseline Function- Other Able to bend down and pick things up without thinking or hesitation 2 yrs ago. Current Functional Impairments (Reported) Functional Limitations- ADL's Must bend down slowly to pick things up. Functional Limitations- Mobility/Gait Brisk walk for only 15-20' Personal Factors Other Personal Factors That May Effect Records indicate an eating Therapy/Recovery disorder, obesity (not morbid) with BMI 32.5. Intake form indicates seizures 2009, arthritis, diabetes II, thyroid disorder. PT-OP-C Subjective Start: 02/09/22 17:26 Freq: Status: Active Protocol: Document 02/13/22 13:04 LRN (Rec: 02/13/22 15:04 LRN [id number]) Patient Questionnaires Lower Extremity Functional Scale LEFS Score 44 with one question unanswered LEFS Impairment 40 to 59% Impaired (Score 32- 47) Oswestry Low Back Index Oswestry Score 32 Oswestry Impairment 20 to 39% Impaired (Score 20- 39) OP-PT Pain Assessment Pain Assessment Grid Paper Pain Assessment Grid Completed Yes Location Thighs Pain Location Details Anterior & Posterior thighs Intensity 4 Scale Used Numeric (0 - 10) Description Aching Frequency Intermittent Hips Pain Location Details Lateral and posterior hips Intensity 7 Scale Used Numeric (0 - 10) Description Aching,Sharp Description- Other Sometimes sharp shooting Back Pain Location Details Low back at sacral level Intensity 8 Scale Used Numeric (0 - 10) Description Aching PT-OP-D Balance Start: 02/09/22 17:26 Freq: Status: Active Protocol: Document 02/13/22 13:04 LRN (Rec: 02/13/22 15:04 LRN [id number]) Balance Tests Single Limb Standing Single Limb- Right 3 secs, without shoes Single Limb- Left 3 secs, without shoes PT-OP-H Neuro Start: 02/09/22 17:26 Freq: Status: Active Protocol: Document 02/13/22 13:04 LRN (Rec: 02/13/22 15:04 LRN [id number]) Sensation Evaluation Gross Sensation Gross Sensation WNL PT-OP-J Posture/Palpation/Skin Start: 02/09/22 17:26 Freq: Status: Active Protocol: Document 02/13/22 13:04 LRN (Rec: 02/13/22 15:04 LRN [id number]) Posture Evaluation Position Standing Head/C-Spine Posture Forward Head T-Spine Posture Increased Kyphosis Shoulder Posture (L) Elevated Pelvis Posture (L) Rotated Anterior,(R) Rotated Posterior,(R) Iliac Crest Superior Comments Posture Comments L leg in ER, pants left rotated. Sacrum is R rotated Palpation Assessment Location L hip Palpation Location TFL muscle & IT band, Piriformis Palpation Findings Tenderness R hip Palpation Location TFL muscle & IT band, Piriformis Palpation Findings Tenderness Back Palpation Location Across low back at sacral level Palpation Findings Tenderness PT-OP-K Range of Motion Start: 02/09/22 17:26 Freq: Status: Active Protocol: Document 02/13/22 13:04 LRN (Rec: 02/13/22 15:04 LRN [id number]) Lumbar Spine Range of Motion Lumbar Spine Active Degrees Testing Position Standing Flexion 75 Extension 11 Lateral Flexion Left 6 Lateral Flexion Right 13 ROM Limitations Pain Comments Flexion is with 38 deg's hip flexion Extension is with 5 deg's hip extension (with bilateral hamstring pain) Hip Goniometric Range of Motion Hip Right Passive Testing Position Supine Straight Leg Raise 55 Internal Rotation 20 External Rotation 50 Left Passive Testing Position Supine Straight Leg Raise 55 Internal Rotation 10 External Rotation 50 PT-OP-L Special Tests Start: 02/09/22 17:26 Freq: Status: Active Protocol: Document 02/13/22 13:04 LRN (Rec: 02/13/22 15:04 LRN [id number]) Special Tests Lumbar Spine Special Tests Straight Leg Raise Test Results + bilaterally Comments SLR is 55 deg's with hamstring /lower leg pain Hip Special Tests Piriformis Comments Pt did not tolerate test position. PT-OP-M Strength Start: 02/09/22 17:26 Freq: Status: Active Protocol: Document 02/13/22 13:04 LRN (Rec: 02/13/22 15:04 LRN [id number]) Trunk Strength Trunk Manual Muscle Testing Testing Position Supine Core Stabilization Pt was not able to maintain core stability with resistance given to LE's. Hip Strength Hip Manual Muscle Testing Right Comments Pt had difficulty coming to full stance with sit<>stand due to knee pain. Left Comments Pt had difficulty coming to full stance with sit<>stand due to knee pain. PT-OP-Q Treatments Start: 02/09/22 17:26 Freq: Status: Active Protocol: Document 02/13/22 13:04 LRN (Rec: 02/13/22 15:04 LRN [id number]) Self-Care/Home Management Treatment Education Other Education Discussed results of evaluation, goals, and plan of care (POC). Pt agreeable to goals and POC. PT-OP-T Assessment and Plan Start: 02/09/22 17:26 Freq: Status: Active Protocol: Document 02/13/22 13:04 LRN (Rec: 02/13/22 15:04 LRN [id number]) Physical Therapy Assessment Rehab Potential Rehabilitation Potential Good Evaluation Complexity Number of Personal Factors/Comorbidities 1-2 Number of Body Systems Impaired 4 or More Clinical Presentation at Evaluation Evolving Impairments Impairments Activity Tolerance,Balance, Gait,Pain,Posture,ROM,Soft Tissue Mobility,Strength Goals Four Impairment Bilateral thigh pain Impairment Thigh pain 5-6/10 with occasional 8-9 shooting pain. LEFS is 44 with one question unanswered (40-59% impaired with score 32-47) Short Term Goal (STG) Decrease thigh pain to 2-3/10, with pt able to ambulate with a stable gait and greater ease. STG Duration 04/01/22 Halfway Goal (LTG) Improve function per LEFS score 48-62 (20-39% impaired) LTG Duration 05/14/22 Three Impairment Difficulty falling asleep at night Short Term Goal (STG) Pt able to tolerate lying on her sides for short periods of time without severe pain. STG Duration 04/01/22 Passenger Representative Goal (LTG) Decrease amount of bilateral hip pain when lying down at night with pt able to go to sleep with ease. LTG Duration 05/14/22 Two Impairment Pain limiting walking Impairment Pain limiting walking to 15-20 minutes before needing to stop and stretch due to pain. Short Term Goal (STG) Pt will be able to SLS 10 secs or greater for improved balance. STG Duration 04/01/22 Halfway Goal (LTG) Decrease LBP with walking to tolerated 30 minutes or more walking for exercise on level surface. LTG Duration 05/14/22 One Impairment Pt is not consistent on a HEP Short Term Goal (STG) Pt will be educated in self care pain management with use of modalities and proper body mechanics for ADLs and transfers. STG Duration 04/01/22 Passenger Representative Goal (LTG) Independent and consistent with a final self care HEP of back and hip ex's. LTG Duration 05/14/22 Assessment Summary Assessment Pt presents with mechanical dysfunction of the hips and pelvis, and instability with LBP at sacral level. She has soft tissue dysfunction of the hips biliaterally with palpable bilateral greater trochanter bursa pain and bilateral IT band tenderness. The pt has reported a short left leg by one inch compared to the right leg, as noted in standing without shoes (R hip elevated). It appears the pt has had chronic pain since 2019 and has had 1 year of physical therapy with progressive but slow results. It is expected that the pt's progress will continue to be slow due to the chronicity of her condition. The patient has noted that she is not always consistent with her home ex's, therefore another reason her progress may be slow. The pt will benefit from skilled physical therapy to improve low back hip bilateral hip mechanics/ positioning and stability of the core, pelvis and hips. Physical Therapy Plan Frequency and Duration Frequency of Treatment 2x/Week Plan of Care Start Date 02/13/22 Plan of Care End Date 05/14/22 Therapeutic Interventions Therapeutic Interventions Gait Training,Home Exercise Program,Joint Mobilizations, Manual Therapy,Neuromuscular Re-education,Patient/Caregiver Education,Self-Care/Home Management,Soft Tissue Mobilization,Therapeutic Activities,Therapeutic Exercises Modalities Cold Pack/Ice Massage,Electric Stimulation,Hot Packs, Ultrasound Next Visit Focus/Plan Next Note Type Treatment Note Next Visit Plan Assess gait & Hip/Lumbar strength, assess L2-L4 for bilateral thigh pain, Manual balance of pelvis if pt comfortable with full balancing. HEP: Hip PROM and core stab. Ther Ex: Core stabilization and normalize hip mobility, aerobic conditioning for walking and core stab, treat bilateral Bursitis/Sciatic pain. Modailities: US, MH/ EStim for pelvic mobilization. Exercise (bike)
--- NOTE | 2022-02-13 15:08 | PT.OPPOC ---
Physical, Occupational & Speech Therapy At [facility] Current Diagnoses Pain in unspecified hip (02/13/22) Dorsalgia, unspecified (02/13/22) Muscle weakness (generalized) (02/13/22) Other abnormalities of gait and mobility (02/13/22) Visit Care Team Role Provider Type Joesph Martinez MD Attending Provider Physician Family Provider Primary Care Provider Referring Provider Specialty: Internal Medicine Address: [address] [place] [address], [facility] [address], [place], [address] Email: [email or web address] Plan Of Care PT-OP-T Assessment and Plan Start: 02/09/22 17:26 Freq: Status: Active Protocol: Document 02/13/22 13:04 LRN (Rec: 02/13/22 15:04 LRN [id number]) Physical Therapy Assessment Rehab Potential Rehabilitation Potential Good Evaluation Complexity Number of Personal Factors/Comorbidities 1-2 Number of Body Systems Impaired 4 or More Clinical Presentation at Evaluation Evolving Impairments Impairments Activity Tolerance,Balance, Gait,Pain,Posture,ROM,Soft Tissue Mobility,Strength Goals Four Impairment Bilateral thigh pain Impairment Thigh pain 5-6/10 with occasional 8-9 shooting pain. LEFS is 44 with one question unanswered (40-59% impaired with score 32-47) Short Term Goal (STG) Decrease thigh pain to 2-3/10, with pt able to ambulate with a stable gait and greater ease. STG Duration 04/01/22 Residential Goal (LTG) Improve function per LEFS score 48-62 (20-39% impaired) LTG Duration 05/14/22 Three Impairment Difficulty falling asleep at night Short Term Goal (STG) Pt able to tolerate lying on her sides for short periods of time without severe pain. STG Duration 04/01/22 Technical Internship Goal (LTG) Decrease amount of bilateral hip pain when lying down at night with pt able to go to sleep with ease. LTG Duration 05/14/22 Two Impairment Pain limiting walking Impairment Pain limiting walking to 15-20 minutes before needing to stop and stretch due to pain. Short Term Goal (STG) Pt will be able to SLS 10 secs or greater for improved balance. STG Duration 04/01/22 Technical Internship Goal (LTG) Decrease LBP with walking to tolerated 30 minutes or more walking for exercise on level surface. LTG Duration 05/14/22 One Impairment Pt is not consistent on a HEP Short Term Goal (STG) Pt will be educated in self care pain management with use of modalities and proper body mechanics for ADLs and transfers. STG Duration 04/01/22 Residential Goal (LTG) Independent and consistent with a final self care HEP of back and hip ex's. LTG Duration 05/14/22 Assessment Summary Assessment Pt presents with mechanical dysfunction of the hips and pelvis, and instability with LBP at sacral level. She has soft tissue dysfunction of the hips biliaterally with palpable bilateral greater trochanter bursa pain and bilateral IT band tenderness. The pt has reported a short left leg by one inch compared to the right leg, as noted in standing without shoes (R hip elevated). It appears the pt has had chronic pain since 2019 and has had 1 year of physical therapy with progressive but slow results. It is expected that the pt's progress will continue to be slow due to the chronicity of her condition. The patient has noted that she is not always consistent with her home ex's, therefore another reason her progress may be slow. The pt will benefit from skilled physical therapy to improve low back hip bilateral hip mechanics/ positioning and stability of the core, pelvis and hips. Physical Therapy Plan Frequency and Duration Frequency of Treatment 2x/Week Plan of Care Start Date 02/13/22 Plan of Care End Date 05/14/22 Therapeutic Interventions Therapeutic Interventions Gait Training,Home Exercise Program,Joint Mobilizations, Manual Therapy,Neuromuscular Re-education,Patient/Caregiver Education,Self-Care/Home Management,Soft Tissue Mobilization,Therapeutic Activities,Therapeutic Exercises Modalities Cold Pack/Ice Massage,Electric Stimulation,Hot Packs, Ultrasound Next Visit Focus/Plan Next Note Type Treatment Note Next Visit Plan Assess gait & Hip/Lumbar strength, assess L2-L4 for bilateral thigh pain, Manual balance of pelvis if pt comfortable with full balancing. HEP: Hip PROM and core stab. Ther Ex: Core stabilization and normalize hip mobility, aerobic conditioning for walking and core stab, treat bilateral Bursitis/Sciatic pain. Modailities: US, MH/ EStim for pelvic mobilization. Exercise (bike) Plan of Care Dates Plan of Care Start Date 02/13/22 Plan of Care End Date 05/14/22 Electronically Signed by: Ann Avila, PT 02/13/22 1508 If you are in agreement with this Plan of Care, please return a signed and dated copy. I have reviewed this Plan of Care and certify that the skilled therapy services above are required to meet the patient?s needs. Physician Signature Date Printed Name and Credentials Clinical Instructor Signature Printed Name and Credentials
--- NOTE | 2022-02-15 16:44 | PT.OTN ---
Current Diagnoses Pain in unspecified hip (02/15/22) Dorsalgia, unspecified (02/15/22) Muscle weakness (generalized) (02/15/22) Other abnormalities of gait and mobility (02/15/22) Physical Therapy Treatment Note PT-OP-A Visit Information Start: 02/09/22 17:26 Freq: Status: Active Protocol: Document 02/15/22 14:38 LRN (Rec: 02/15/22 15:21 LRN [id number]) Out-Patient Physical Therapy Visit Information Visit Information Visit Type Treatment Note Visit Start Time 14:38 Visit Stop Time 15:21 Total Visit Minutes 43 Visit Number 2 Evaluation Information Evaluation Date 02/13/22 Precautions Precautions Type 2 Diabetes mellitus, blood sugar levels unstable, fractured L ankle with isabel in tibia, with plates and screws at L ankle. Record review indicates: Seizure disorder~ 2008, skin cancer ~2013, Obesity 02/08/22 (BMI 30.0-34.9 ) PT-OP-B Current Condition Start: 02/09/22 17:26 Freq: Status: Active Protocol: Document 02/13/22 13:04 LRN (Rec: 02/13/22 15:04 LRN [id number]) Current Condition History of Current Condition Onset Date 09/2020. Problem with walking in 2019. Current Complaints Lower back and bursitis pain, sometime legs give out due to pain, ache. History of Current Condition Has had lower back pain and bilateral bursitis since 2019. Has had bursitis one or two times in the past. Pt doesn't think about her pain and has difficulty identifying her pain intensity. She has tight IT Bands with tenderness noted. Her L leg aches sometimes and with sit to stand sometimes the leg gives out. She sometimes takes IBP. Has been having pains in the buttocks that her spouse thinks is her sciatic nerve. Has midback pain 40-50% of the time. Can't do housework for > 1/2 hr. Leg length dicrepancy with L leg 1 shorter than the R. Lift in L shoe put in 2019 by mold carrier. Prior Treatments and Tests P.T. at from winter to winter but discontinued due to Covid fears. P.T. with Joesph Dias in Nov 2021, for 1-1.5 months, but was getting an emotional trigger and couldn't continue; therefore wants a female therapist. She states her pain did lessen overall some. She wasn't always consistent with her exercises. X-rays of L/S: Grade 1 L4-L5 degenerative spondylolisthesis , Multilevel degenerative disease, Multilevel facet arthropathy. Developmental History Developmental History Tailbone injury at 18 yo. Treatment Goals Patient/Caregiver Goals Pt goal: Exercise to reduce pain so that it doesn't interrupt her while she walks (Walking 10-15' LB becomes so tight that she needs to stretch out her low back), month ago pain in legs started and would like it to go away, eliminate balance problems. Prior Functional Status Baseline Function- ADL's Independent Baseline Function- Mobility Independent Baseline Function- Gait Before 2019 didn't notice back being a hinderance with hiking, walking. Baseline Function- Other Able to bend down and pick things up without thinking or hesitation 2 yrs ago. Current Functional Impairments (Reported) Functional Limitations- ADL's Must bend down slowly to pick things up. Functional Limitations- Mobility/Gait Brisk walk for only 15-20' Personal Factors Other Personal Factors That May Effect Records indicate an eating Therapy/Recovery disorder, obesity (not morbid) with BMI 32.5. Intake form indicates seizures 2009, arthritis, diabetes II, thyroid disorder. PT-OP-C Subjective Start: 02/09/22 17:26 Freq: Status: Active Protocol: Document 02/15/22 14:38 LRN (Rec: 02/15/22 15:21 LRN [id number]) OP-PT Subjective Patient Comments Patient Comments ......... PT-OP-D Balance Start: 02/09/22 17:26 Freq: Status: Active Protocol: Document 02/13/22 13:04 LRN (Rec: 02/13/22 15:04 LRN [id number]) Balance Tests Single Limb Standing Single Limb- Right 3 secs, without shoes Single Limb- Left 3 secs, without shoes PT-OP-H Neuro Start: 02/09/22 17:26 Freq: Status: Active Protocol: Document 02/13/22 13:04 LRN (Rec: 02/13/22 15:04 LRN [id number]) Sensation Evaluation Gross Sensation Gross Sensation WNL PT-OP-J Posture/Palpation/Skin Start: 04/15/22 17:26 Freq: Status: Active Protocol: Document 02/13/22 13:04 LRN (Rec: 02/13/22 15:04 LRN [id number]) Posture Evaluation Position Standing Head/C-Spine Posture Forward Head T-Spine Posture Increased Kyphosis Shoulder Posture (L) Elevated Pelvis Posture (L) Rotated Anterior,(R) Rotated Posterior,(R) Iliac Crest Superior Comments Posture Comments L leg in ER, pants left rotated. Sacrum is R rotated Palpation Assessment Location L hip Palpation Location TFL muscle & IT band, Piriformis Palpation Findings Tenderness R hip Palpation Location TFL muscle & IT band, Piriformis Palpation Findings Tenderness Back Palpation Location Across low back at sacral level Palpation Findings Tenderness PT-OP-K Range of Motion Start: 02/09/22 17:26 Freq: Status: Active Protocol: Document 02/13/22 13:04 LRN (Rec: 02/13/22 15:04 LRN [id number]) Lumbar Spine Range of Motion Lumbar Spine Active Degrees Testing Position Standing Flexion 75 Extension 11 Lateral Flexion Left 6 Lateral Flexion Right 13 ROM Limitations Pain Comments Flexion is with 38 deg's hip flexion Extension is with 5 deg's hip extension (with bilateral hamstring pain) Hip Goniometric Range of Motion Hip Right Passive Testing Position Supine Straight Leg Raise 55 Internal Rotation 20 External Rotation 50 Left Passive Testing Position Supine Straight Leg Raise 55 Internal Rotation 10 External Rotation 50 PT-OP-L Special Tests Start: 02/09/22 17:26 Freq: Status: Active Protocol: Document 02/13/22 13:04 LRN (Rec: 02/13/22 15:04 LRN [id number]) Special Tests Lumbar Spine Special Tests Straight Leg Raise Test Results + bilaterally Comments SLR is 55 deg's with hamstring /lower leg pain Hip Special Tests Piriformis Comments Pt did not tolerate test position. PT-OP-M Strength Start: 02/09/22 17:26 Freq: Status: Active Protocol: Document 02/13/22 13:04 LRN (Rec: 02/13/22 15:04 LRN [id number]) Trunk Strength Trunk Manual Muscle Testing Testing Position Supine Core Stabilization Pt was not able to maintain core stability with resistance given to LE's. Hip Strength Hip Manual Muscle Testing Right Comments Pt had difficulty coming to full stance with sit<>stand due to knee pain. Left Comments Pt had difficulty coming to full stance with sit<>stand due to knee pain. PT-OP-Q Treatments Start: 02/09/22 17:26 Freq: Status: Active Protocol: Document 02/15/22 14:38 LRN (Rec: 02/15/22 15:21 LRN [id number]) Therapeutic Exercises Supine Exercises TA/BKFO Supine Exercise Name TA/BKFO Reps/Minutes 6' Comments phys cuing at [facility] & v cuing, self cuing for stablilzation of pelvis TA Tightening Supine Exercise Name TA tightening Reps/Minutes 8' Comments Cuing to draw stomach in Prone Exercises TA tightening Prone Exercise Name TA tightening after pelvic balancing Reps/Minutes 3' Manual Therapy Treatment Soft Tissue Mobilization Balancing of pelvis Body Location Sacrum, Ileum, Ischium Mobilization Type Myofascial Release,Sustained Pressure Intensity/Depth Moderate Body Position Prone Self-Care/Home Management Treatment Education Patient Education Body Mechanics Other Education Pt educated in proper sup>sit> stand with log roll method & discussed proper body mechanics for picking up objects PT-OP-T Assessment and Plan Start: 02/09/22 17:26 Freq: Status: Active Protocol: Document 02/15/22 14:38 LRN (Rec: 02/15/22 15:21 LRN [id number]) Physical Therapy Assessment Goals Four Impairment Bilateral thigh pain Impairment Thigh pain 5-6/10 with occasional 8-9 shooting pain. LEFS is 44 with one question unanswered (40-59% impaired with score 32-47) Short Term Goal (STG) Decrease thigh pain to 2-3/10, with pt able to ambulate with a stable gait and greater ease. STG Duration 04/01/22 Snf Goal (LTG) Improve function per LEFS score 48-62 (20-39% impaired) LTG Duration 05/14/22 Three Impairment Difficulty falling asleep at night Short Term Goal (STG) Pt able to tolerate lying on her sides for short periods of time without severe pain. STG Duration 04/01/22 Occupational Safety And Health Manager Goal (LTG) Decrease amount of bilateral hip pain when lying down at night with pt able to go to sleep with ease. LTG Duration 05/14/22 Two Impairment Pain limiting walking Impairment Pain limiting walking to 15-20 minutes before needing to stop and stretch due to pain. Short Term Goal (STG) Pt will be able to SLS 10 secs or greater for improved balance. STG Duration 04/01/22 Occupational Safety And Health Manager Goal (LTG) Decrease LBP with walking to tolerated 30 minutes or more walking for exercise on level surface. LTG Duration 05/14/22 One Impairment Pt is not consistent on a HEP Short Term Goal (STG) Pt will be educated in self care pain management with use of modalities and proper body mechanics for ADLs and transfers. (02/15/22: Pt educated in proper sup>sit>stand with log roll method & discussed proper body mechanics for picking up objects) STG Duration 04/01/22 (02/15/22: Progressed) Occupational Safety And Health Manager Goal (LTG) Independent and consistent with a final self care HEP of back and hip ex's. LTG Duration 05/14/22 Assessment Summary Assessment PA glide of L2-L4 elicitid back and sacral pain but no thigh pain. I was able to balance pt's pelvis and she demonstrated level iliac crests and summetrical PSIS positioning in standing after treatment. Pt appears to have a good understanding of keeping pelvis stable with TA and PF tightening, but exhibits body fair body mechanics in proper positioning and needed v cuing to keep balanced on feet to avoid single leg weightbearing . Hip rotation in supine with traction applied appeared to be limited biliaterally (IR worse than ER). Physical Therapy Plan Frequency and Duration Frequency of Treatment 2x/Week Plan of Care Start Date 02/13/22 Plan of Care End Date 05/14/22 Next Visit Focus/Plan Next Note Type Treatment Note Next Visit Plan Assess gait & Hip/Lumbar strength, assess results of pelvis balancing. Add pubic balancing if further balancing needed. HEP: Hip PROM and core stab. Ther Ex: Core stabilization and normalize hip mobility, aerobic conditioning for walking and core stab, treat bilateral Bursitis/Sciatic pain. Modailities: US, MH/ EStim for pelvic mobilization. Exercise (bike).
--- NOTE | 2022-02-20 15:27 | PT.OTN ---
Current Diagnoses Pain in unspecified hip (02/20/22) Dorsalgia, unspecified (02/20/22) Muscle weakness (generalized) (02/20/22) Other abnormalities of gait and mobility (02/20/22) Physical Therapy Treatment Note PT-OP-A Visit Information Start: 02/09/22 17:26 Freq: Status: Active Protocol: Document 02/20/22 13:11 LRN (Rec: 02/20/22 13:47 LRN [id number]) Out-Patient Physical Therapy Visit Information Visit Information Visit Type Treatment Note Visit Start Time 13:11 Visit Stop Time 13:45 Total Visit Minutes 34 Visit Number 3 Evaluation Information Evaluation Date 02/13/22 Precautions Precautions Type 2 Diabetes mellitus, blood sugar levels unstable, fractured L ankle with isabel in tibia, with plates and screws at L ankle. Record review indicates: Seizure disorder~ 2008, skin cancer ~2013, Obesity 02/08/22 (BMI 30.0-34.9 ) PT-OP-B Current Condition Start: 02/09/22 17:26 Freq: Status: Active Protocol: Document 02/13/22 13:04 LRN (Rec: 02/13/22 15:04 LRN [id number]) Current Condition History of Current Condition Onset Date 09/2020. Problem with walking in 2019. Current Complaints Lower back and bursitis pain, sometime legs give out due to pain, ache. History of Current Condition Has had lower back pain and bilateral bursitis since 2019. Has had bursitis one or two times in the past. Pt doesn't think about her pain and has difficulty identifying her pain intensity. She has tight IT Bands with tenderness noted. Her L leg aches sometimes and with sit to stand sometimes the leg gives out. She sometimes takes IBP. Has been having pains in the buttocks that her spouse thinks is her sciatic nerve. Has midback pain 40-50% of the time. Can't do housework for > 1/2 hr. Leg length dicrepancy with L leg 1 shorter than the R. Lift in L shoe put in 2019 by upper stitcher. Prior Treatments and Tests P.T. at [facility] from winter to winter but discontinued due to Covid fears. P.T. with Joesph Dias in Nov 2021, for 1-1.5 months, but was getting an emotional trigger and couldn't continue; therefore wants a female therapist. She states her pain did lessen overall some. She wasn't always consistent with her exercises. X-rays of L/S: Grade 1 L4-L5 degenerative spondylolisthesis , Multilevel degenerative disease, Multilevel facet arthropathy. Developmental History Developmental History Tailbone injury at 18 yo. Treatment Goals Patient/Caregiver Goals Pt goal: Exercise to reduce pain so that it doesn't interrupt her while she walks (Walking 10-15' LB becomes so tight that she needs to stretch out her low back), month ago pain in legs started and would like it to go away, eliminate balance problems. Prior Functional Status Baseline Function- ADL's Independent Baseline Function- Mobility Independent Baseline Function- Gait Before 2019 didn't notice back being a hinderance with hiking, walking. Baseline Function- Other Able to bend down and pick things up without thinking or hesitation 2 yrs ago. Current Functional Impairments (Reported) Functional Limitations- ADL's Must bend down slowly to pick things up. Functional Limitations- Mobility/Gait Brisk walk for only 15-20' Personal Factors Other Personal Factors That May Effect Records indicate an eating Therapy/Recovery disorder, obesity (not morbid) with BMI 32.5. Intake form indicates seizures 2009, arthritis, diabetes II, thyroid disorder. PT-OP-C Subjective Start: 02/09/22 17:26 Freq: Status: Active Protocol: Document 02/20/22 13:11 LRN (Rec: 02/20/22 13:47 LRN [id number]) OP-PT Subjective Patient Comments Patient Comments Last sessionn thought she felt better, but walked and did uphill, had pain in LBP. Having somewhat less pain in the thigh, but had it in the lower calf. Currently no thigh pain after voluteering a the hospital for 4 hours. The LB was beginning to be sore. PT-OP-D Balance Start: 02/09/22 17:26 Freq: Status: Active Protocol: Document 02/13/22 13:04 LRN (Rec: 02/13/22 15:04 LRN [id number]) Balance Tests Single Limb Standing Single Limb- Right 3 secs, without shoes Single Limb- Left 3 secs, without shoes PT-OP-H Neuro Start: 02/09/22 17:26 Freq: Status: Active Protocol: Document 02/13/22 13:04 LRN (Rec: 02/13/22 15:04 LRN [id number]) Sensation Evaluation Gross Sensation Gross Sensation WNL PT-OP-J Posture/Palpation/Skin Start: 02/09/22 17:26 Freq: Status: Active Protocol: Document 02/13/22 13:04 LRN (Rec: 02/13/22 15:04 LRN [id number]) Posture Evaluation Position Standing Head/C-Spine Posture Forward Head T-Spine Posture Increased Kyphosis Shoulder Posture (L) Elevated Pelvis Posture (L) Rotated Anterior,(R) Rotated Posterior,(R) Iliac Crest Superior Comments Posture Comments L leg in ER, pants left rotated. Sacrum is R rotated Palpation Assessment Location L hip Palpation Location TFL muscle & IT band, Piriformis Palpation Findings Tenderness R hip Palpation Location TFL muscle & IT band, Piriformis Palpation Findings Tenderness Back Palpation Location Across low back at sacral level Palpation Findings Tenderness PT-OP-K Range of Motion Start: 02/09/22 17:26 Freq: Status: Active Protocol: Document 02/13/22 13:04 LRN (Rec: 02/13/22 15:04 LRN [id number]) Lumbar Spine Range of Motion Lumbar Spine Active Degrees Testing Position Standing Flexion 75 Extension 11 Lateral Flexion Left 6 Lateral Flexion Right 13 ROM Limitations Pain Comments Flexion is with 38 deg's hip flexion Extension is with 5 deg's hip extension (with bilateral hamstring pain) Hip Goniometric Range of Motion Hip Right Passive Testing Position Supine Straight Leg Raise 55 Internal Rotation 20 External Rotation 50 Left Passive Testing Position Supine Straight Leg Raise 55 Internal Rotation 10 External Rotation 50 PT-OP-L Special Tests Start: 02/09/22 17:26 Freq: Status: Active Protocol: Document 02/13/22 13:04 LRN (Rec: 02/13/22 15:04 LRN [id number]) Special Tests Lumbar Spine Special Tests Straight Leg Raise Test Results + bilaterally Comments SLR is 55 deg's with hamstring /lower leg pain Hip Special Tests Piriformis Comments Pt did not tolerate test position. PT-OP-M Strength Start: 02/09/22 17:26 Freq: Status: Active Protocol: Document 02/13/22 13:04 LRN (Rec: 02/13/22 15:04 LRN [id number]) Trunk Strength Trunk Manual Muscle Testing Testing Position Supine Core Stabilization Pt was not able to maintain core stability with resistance given to LE's. Hip Strength Hip Manual Muscle Testing Right Comments Pt had difficulty coming to full stance with sit<>stand due to knee pain. Left Comments Pt had difficulty coming to full stance with sit<>stand due to knee pain. PT-OP-Q Treatments Start: 02/09/22 17:26 Freq: Status: Active Protocol: Document 02/20/22 13:11 LRN (Rec: 02/20/22 13:47 LRN [id number]) Therapeutic Exercises Supine Exercises TA Tightening Supine Exercise Name TA tightening Reps/Minutes 6' Comments Cuing to draw stomach in Sidelying Exercises TA tightening Sidelying Exercise Name TA tightening Side bilateral Reps/Minutes TA tightening Comments Much cuing of TA and tightening lower and upper zahida Manual Therapy Treatment Soft Tissue Mobilization Balancing of pelvis Body Location Sacrum, Ileum, Ischium Mobilization Type Myofascial Release,Sustained Pressure Intensity/Depth Moderate Body Position Prone Comments 25' PT-OP-T Assessment and Plan Start: 02/09/22 17:26 Freq: Status: Active Protocol: Document 02/20/22 13:11 LRN (Rec: 02/20/22 13:47 LRN [id number]) Physical Therapy Assessment Goals Four Impairment Bilateral thigh pain Impairment Thigh pain 5-6/10 with occasional 8-9 shooting pain. LEFS is 44 with one question unanswered (40-59% impaired with score 32-47) Short Term Goal (STG) Decrease thigh pain to 2-3/10, with pt able to ambulate with a stable gait and greater ease. STG Duration 04/01/22 Hand Braille Transcriber Goal (LTG) Improve function per LEFS score 48-62 (20-39% impaired) LTG Duration 05/14/22 Three Impairment Difficulty falling asleep at night Short Term Goal (STG) Pt able to tolerate lying on her sides for short periods of time without severe pain. STG Duration 04/01/22 Hand Braille Transcriber Goal (LTG) Decrease amount of bilateral hip pain when lying down at night with pt able to go to sleep with ease. LTG Duration 05/14/22 Two Impairment Pain limiting walking Impairment Pain limiting walking to 15-20 minutes before needing to stop and stretch due to pain. Short Term Goal (STG) Pt will be able to SLS 10 secs or greater for improved balance. STG Duration 04/01/22 Hand Braille Transcriber Goal (LTG) Decrease LBP with walking to tolerated 30 minutes or more walking for exercise on level surface. LTG Duration 05/14/22 One Impairment Pt is not consistent on a HEP Short Term Goal (STG) Pt will be educated in self care pain management with use of modalities and proper body mechanics for ADLs and transfers. (02/15/22: Pt educated in proper sup>sit>stand with log roll method & discussed proper body mechanics for picking up objects) STG Duration 04/01/22 (02/15/22: Progressed) Nursing Home Goal (LTG) Independent and consistent with a final self care HEP of back and hip ex's. LTG Duration 05/14/22 Assessment Summary Assessment Mechanical dysfunction of the hips and pelvis, and instability with LBP at sacral level. She has soft tissue dysfunction of the hips biliaterally with palpable bilateral greater trochanter bursa pain and bilateral IT band tenderness. Balancing of pelvis may have been helpful for a few days, but the pt is not sure. States after her walks (slight incline for last part), caused increase pain, more in lower leg than thighs. No significant change in LBP immediately after treatment. Pt demonstrates weakness of core with abdominal hernia and DR in the lower abdominal region; therefore stabilization will be difficult. Physical Therapy Plan Frequency and Duration Frequency of Treatment 2x/Week Plan of Care Start Date 02/13/22 Plan of Care End Date 05/14/22 Next Visit Focus/Plan Next Note Type Treatment Note Next Visit Plan Assess gait & Hip/Lumbar strength, assess results of pelvis balancing. . HEP: Hip PROM and core stab. ? Exercise (bike). Ther Ex: Core stabilization and normalize hip mobility, aerobic conditioning for walking and core stab, treat bilateral Bursitis/Sciatic pain. Modailities: US, MH/EStim for pelvic mobilization. Pubic balancing if further balancing needed
--- NOTE | 2022-02-22 16:01 | PT.OTN ---
Current Diagnoses Pain in unspecified hip (02/22/22) Dorsalgia, unspecified (02/22/22) Muscle weakness (generalized) (02/22/22) Other abnormalities of gait and mobility (02/22/22) Physical Therapy Treatment Note PT-OP-A Visit Information Start: 02/09/22 17:26 Freq: Status: Active Protocol: Document 02/22/22 15:14 LRN (Rec: 02/22/22 15:59 LRN [id number]) Out-Patient Physical Therapy Visit Information Visit Information Visit Type Treatment Note Visit Start Time 15:14 Visit Stop Time 15:52 Total Visit Minutes 38 Visit Number 4 Evaluation Information Evaluation Date 02/13/22 Precautions Precautions Type 2 Diabetes mellitus, blood sugar levels unstable, fractured L ankle with isabel in tibia, with plates and screws at L ankle. Record review indicates: Seizure disorder~ 2008, skin cancer ~2013, Obesity 02/08/22 (BMI 30.0-34.9 ) PT-OP-B Current Condition Start: 02/09/22 17:26 Freq: Status: Active Protocol: Document 02/13/22 13:04 LRN (Rec: 02/13/22 15:04 LRN [id number]) Current Condition History of Current Condition Onset Date 09/2020. Problem with walking in 2019. Current Complaints Lower back and bursitis pain, sometime legs give out due to pain, ache. History of Current Condition Has had lower back pain and bilateral bursitis since 2019. Has had bursitis one or two times in the past. Pt doesn't think about her pain and has difficulty identifying her pain intensity. She has tight IT Bands with tenderness noted. Her L leg aches sometimes and with sit to stand sometimes the leg gives out. She sometimes takes IBP. Has been having pains in the buttocks that her spouse thinks is her sciatic nerve. Has midback pain 40-50% of the time. Can't do housework for > 1/2 hr. Leg length dicrepancy with L leg 1 shorter than the R. Lift in L shoe put in 2019 by account services representative. Prior Treatments and Tests P.T. at [facility] from winter to winter but discontinued due to Covid fears. P.T. with Joesph Dias in Nov 2021, for 1-1.5 months, but was getting an emotional trigger and couldn't continue; therefore wants a female therapist. She states her pain did lessen overall some. She wasn't always consistent with her exercises. X-rays of L/S: Grade 1 L4-L5 degenerative spondylolisthesis , Multilevel degenerative disease, Multilevel facet arthropathy. Developmental History Developmental History Tailbone injury at 18 yo. Treatment Goals Patient/Caregiver Goals Pt goal: Exercise to reduce pain so that it doesn't interrupt her while she walks (Walking 10-15' LB becomes so tight that she needs to stretch out her low back), month ago pain in legs started and would like it to go away, eliminate balance problems. Prior Functional Status Baseline Function- ADL's Independent Baseline Function- Mobility Independent Baseline Function- Gait Before 2019 didn't notice back being a hinderance with hiking, walking. Baseline Function- Other Able to bend down and pick things up without thinking or hesitation 2 yrs ago. Current Functional Impairments (Reported) Functional Limitations- ADL's Must bend down slowly to pick things up. Functional Limitations- Mobility/Gait Brisk walk for only 15-20' Personal Factors Other Personal Factors That May Effect Records indicate an eating Therapy/Recovery disorder, obesity (not morbid) with BMI 32.5. Intake form indicates seizures 2009, arthritis, diabetes II, thyroid disorder. PT-OP-C Subjective Start: 02/09/22 17:26 Freq: Status: Active Protocol: Document 02/22/22 15:14 LRN (Rec: 02/22/22 15:59 LRN [id number]) OP-PT Subjective Patient Comments Patient Comments [place] better after last session went for a walk and her back felt better. Doing the ex's she has pain across the back but no pain in the thighs. This morning got out of bed and felt the legs didn't feel like they were controllable. Pain across the low back is rated 1/10. The pain in the thighs is sporadic and is noted 30% of the time. Can walk 15' before the low back is very painful. PT-OP-D Balance Start: 02/09/22 17:26 Freq: Status: Active Protocol: Document 02/13/22 13:04 LRN (Rec: 02/13/22 15:04 LRN [id number]) Balance Tests Single Limb Standing Single Limb- Right 3 secs, without shoes Single Limb- Left 3 secs, without shoes PT-OP-H Neuro Start: 02/09/22 17:26 Freq: Status: Active Protocol: Document 02/13/22 13:04 LRN (Rec: 02/13/22 15:04 LRN [id number]) Sensation Evaluation Gross Sensation Gross Sensation WNL PT-OP-J Posture/Palpation/Skin Start: 02/09/22 17:26 Freq: Status: Active Protocol: Document 02/13/22 13:04 LRN (Rec: 02/13/22 15:04 LRN [id number]) Posture Evaluation Position Standing Head/C-Spine Posture Forward Head T-Spine Posture Increased Kyphosis Shoulder Posture (L) Elevated Pelvis Posture (L) Rotated Anterior,(R) Rotated Posterior,(R) Iliac Crest Superior Comments Posture Comments L leg in ER, pants left rotated. Sacrum is R rotated Palpation Assessment Location L hip Palpation Location TFL muscle & IT band, Piriformis Palpation Findings Tenderness R hip Palpation Location TFL muscle & IT band, Piriformis Palpation Findings Tenderness Back Palpation Location Across low back at sacral level Palpation Findings Tenderness PT-OP-K Range of Motion Start: 02/09/22 17:26 Freq: Status: Active Protocol: Document 02/13/22 13:04 LRN (Rec: 02/13/22 15:04 LRN [id number]) Lumbar Spine Range of Motion Lumbar Spine Active Degrees Testing Position Standing Flexion 75 Extension 11 Lateral Flexion Left 6 Lateral Flexion Right 13 ROM Limitations Pain Comments Flexion is with 38 deg's hip flexion Extension is with 5 deg's hip extension (with bilateral hamstring pain) Hip Goniometric Range of Motion Hip Right Passive Testing Position Supine Straight Leg Raise 55 Internal Rotation 20 External Rotation 50 Left Passive Testing Position Supine Straight Leg Raise 55 Internal Rotation 10 External Rotation 50 PT-OP-L Special Tests Start: 02/09/22 17:26 Freq: Status: Active Protocol: Document 02/13/22 13:04 LRN (Rec: 02/13/22 15:04 LRN [id number]) Special Tests Lumbar Spine Special Tests Straight Leg Raise Test Results + bilaterally Comments SLR is 55 deg's with hamstring /lower leg pain Hip Special Tests Piriformis Comments Pt did not tolerate test position. PT-OP-M Strength Start: 02/09/22 17:26 Freq: Status: Active Protocol: Document 02/13/22 13:04 LRN (Rec: 02/13/22 15:04 LRN [id number]) Trunk Strength Trunk Manual Muscle Testing Testing Position Supine Core Stabilization Pt was not able to maintain core stability with resistance given to LE's. Hip Strength Hip Manual Muscle Testing Right Comments Pt had difficulty coming to full stance with sit<>stand due to knee pain. Left Comments Pt had difficulty coming to full stance with sit<>stand due to knee pain. PT-OP-Q Treatments Start: 02/09/22 17:26 Freq: Status: Active Protocol: Document 02/22/22 15:14 LRN (Rec: 02/22/22 15:59 LRN [id number]) Therapeutic Exercises Supine Exercises TA Tightening Supine Exercise Name TA tightening - drawing in, w/ hong,hong & w/cough Reps/Minutes 8' Comments Cuing to draw stomach in and as laughing/coughing Prone Exercises TA tightening Prone Exercise Name TA tightening after pelvic balancing Reps/Minutes 1' Sidelying Exercises TA tightening Sidelying Exercise Name TA tightening Side bilateral Reps/Minutes 4' Comments Cuing of TA and tightening lower and upper zahida Manual Therapy Treatment Soft Tissue Mobilization Balancing of pelvis Body Location R ALA, Ischium Mobilization Type Myofascial Release,Sustained Pressure Intensity/Depth Moderate Body Position Prone Comments 18' Joint Mobilizations Coccyx Joint Coccy Direction Sidebend Tip Left Body Position Prone Reps/Duration 7' Comments Relaxation of distal end, Proximal end remained tightened. PT-OP-T Assessment and Plan Start: 02/09/22 17:26 Freq: Status: Active Protocol: Document 02/22/22 15:14 LRN (Rec: 02/22/22 15:59 LRN [id number]) Physical Therapy Assessment Goals Four Impairment Bilateral thigh pain Impairment Thigh pain 5-6/10 with occasional 8-9 shooting pain. LEFS is 44 with one question unanswered (40-59% impaired with score 32-47) Short Term Goal (STG) Decrease thigh pain to 2-3/10, with pt able to ambulate with a stable gait and greater ease. STG Duration 04/01/22 Wire Fence Builder Goal (LTG) Improve function per LEFS score 48-62 (20-39% impaired) LTG Duration 05/14/22 Three Impairment Difficulty falling asleep at night Short Term Goal (STG) Pt able to tolerate lying on her sides for short periods of time without severe pain. STG Duration 04/01/22 Wire Fence Builder Goal (LTG) Decrease amount of bilateral hip pain when lying down at night with pt able to go to sleep with ease. LTG Duration 05/14/22 Two Impairment Pain limiting walking Impairment Pain limiting walking to 15-20 minutes before needing to stop and stretch due to pain. Short Term Goal (STG) Pt will be able to SLS 10 secs or greater for improved balance. STG Duration 04/01/22 Wire Fence Builder Goal (LTG) Decrease LBP with walking to tolerated 30 minutes or more walking for exercise on level surface. LTG Duration 05/14/22 One Impairment Pt is not consistent on a HEP Short Term Goal (STG) Pt will be educated in self care pain management with use of modalities and proper body mechanics for ADLs and transfers. (02/15/22: Pt educated in proper sup>sit>stand with log roll method & discussed proper body mechanics for picking up objects) STG Duration 04/01/22 (02/15/22: Progressed) Wire Fence Builder Goal (LTG) Independent and consistent with a final self care HEP of back and hip ex's. LTG Duration 05/14/22 Assessment Summary Assessment No low back pain at end of therapy and no pain walking out of therapy. Pt R ALA posterior, R side of coccyx is tight. Improved softness of distal end after STM, proximal end is still tight. Physical Therapy Plan Frequency and Duration Frequency of Treatment 2x/Week Plan of Care Start Date 02/13/22 Plan of Care End Date 05/14/22 Next Visit Focus/Plan Next Note Type Treatment Note Next Visit Plan Assess gait & Hip/Lumbar strength, ?Exercise (bike). Assess results of pelvis balancing. HEP: Hip PROM and core stab. Ther Ex: Core stabilization and normalize hip mobility, aerobic conditioning for walking and core stab, treat bilateral Bursitis/Sciatic pain. Modailities: US, MH/EStim for pelvic mobilization. Pubic balancing if further balancing needed
--- NOTE | 2022-02-27 17:44 | PT.OTN ---
Current Diagnoses Pain in unspecified hip (02/27/22) Dorsalgia, unspecified (02/27/22) Muscle weakness (generalized) (02/27/22) Other abnormalities of gait and mobility (02/27/22) Physical Therapy Treatment Note PT-OP-A Visit Information Start: 02/09/22 17:26 Freq: Status: Active Protocol: Document 02/27/22 13:02 LRN (Rec: 02/27/22 13:47 LRN [id number]) Out-Patient Physical Therapy Visit Information Visit Information Visit Type Treatment Note Visit Start Time 13:03 Visit Stop Time 13:45 Total Visit Minutes 42 Visit Number 5 Evaluation Information Evaluation Date 02/13/22 Precautions Precautions Type 2 Diabetes mellitus, blood sugar levels unstable, fractured L ankle with isabel in tibia, with plates and screws at L ankle. Record review indicates: Seizure disorder~ 2008, skin cancer ~2013, Obesity 02/08/22 (BMI 30.0-34.9 ) PT-OP-B Current Condition Start: 02/09/22 17:26 Freq: Status: Active Protocol: Document 02/13/22 13:04 LRN (Rec: 02/13/22 15:04 LRN [id number]) Current Condition History of Current Condition Onset Date 09/2020. Problem with walking in 2019. Current Complaints Lower back and bursitis pain, sometime legs give out due to pain, ache. History of Current Condition Has had lower back pain and bilateral bursitis since 2019. Has had bursitis one or two times in the past. Pt doesn't think about her pain and has difficulty identifying her pain intensity. She has tight IT Bands with tenderness noted. Her L leg aches sometimes and with sit to stand sometimes the leg gives out. She sometimes takes IBP. Has been having pains in the buttocks that her spouse thinks is her sciatic nerve. Has midback pain 40-50% of the time. Can't do housework for > 1/2 hr. Leg length dicrepancy with L leg 1 shorter than the R. Lift in L shoe put in 2019 by ese teacher. Prior Treatments and Tests P.T. at [facility] from winter to winter but discontinued due to Covid fears. P.T. with Joesph Dias in Nov 2021, for 1-1.5 months, but was getting an emotional trigger and couldn't continue; therefore wants a female therapist. She states her pain did lessen overall some. She wasn't always consistent with her exercises. X-rays of L/S: Grade 1 L4-L5 degenerative spondylolisthesis , Multilevel degenerative disease, Multilevel facet arthropathy. Developmental History Developmental History Tailbone injury at 18 yo. Treatment Goals Patient/Caregiver Goals Pt goal: Exercise to reduce pain so that it doesn't interrupt her while she walks (Walking 10-15' LB becomes so tight that she needs to stretch out her low back), month ago pain in legs started and would like it to go away, eliminate balance problems. Prior Functional Status Baseline Function- ADL's Independent Baseline Function- Mobility Independent Baseline Function- Gait Before 2019 didn't notice back being a hinderance with hiking, walking. Baseline Function- Other Able to bend down and pick things up without thinking or hesitation 2 yrs ago. Current Functional Impairments (Reported) Functional Limitations- ADL's Must bend down slowly to pick things up. Functional Limitations- Mobility/Gait Brisk walk for only 15-20' Personal Factors Other Personal Factors That May Effect Records indicate an eating Therapy/Recovery disorder, obesity (not morbid) with BMI 32.5. Intake form indicates seizures 2009, arthritis, diabetes II, thyroid disorder. PT-OP-C Subjective Start: 02/09/22 17:26 Freq: Status: Active Protocol: Document 02/27/22 13:02 LRN (Rec: 02/27/22 17:34 LRN [id number]) OP-PT Subjective Patient Comments Patient Comments States she felt good after the session, but as time went on the pain returned. Sharp pain occasionally at LB (pointing to SIJ region). PT-OP-D Balance Start: 02/09/22 17:26 Freq: Status: Active Protocol: Document 02/13/22 13:04 LRN (Rec: 02/13/22 15:04 LRN [id number]) Balance Tests Single Limb Standing Single Limb- Right 3 secs, without shoes Single Limb- Left 3 secs, without shoes PT-OP-H Neuro Start: 02/09/22 17:26 Freq: Status: Active Protocol: Document 02/13/22 13:04 LRN (Rec: 02/13/22 15:04 LRN [id number]) Sensation Evaluation Gross Sensation Gross Sensation WNL PT-OP-J Posture/Palpation/Skin Start: 02/09/22 17:26 Freq: Status: Active Protocol: Document 02/13/22 13:04 LRN (Rec: 02/13/22 15:04 LRN [id number]) Posture Evaluation Position Standing Head/C-Spine Posture Forward Head T-Spine Posture Increased Kyphosis Shoulder Posture (L) Elevated Pelvis Posture (L) Rotated Anterior,(R) Rotated Posterior,(R) Iliac Crest Superior Comments Posture Comments L leg in ER, pants left rotated. Sacrum is R rotated Palpation Assessment Location L hip Palpation Location TFL muscle & IT band, Piriformis Palpation Findings Tenderness R hip Palpation Location TFL muscle & IT band, Piriformis Palpation Findings Tenderness Back Palpation Location Across low back at sacral level Palpation Findings Tenderness PT-OP-K Range of Motion Start: 02/09/22 17:26 Freq: Status: Active Protocol: Document 02/13/22 13:04 LRN (Rec: 02/13/22 15:04 LRN [id number]) Lumbar Spine Range of Motion Lumbar Spine Active Degrees Testing Position Standing Flexion 75 Extension 11 Lateral Flexion Left 6 Lateral Flexion Right 13 ROM Limitations Pain Comments Flexion is with 38 deg's hip flexion Extension is with 5 deg's hip extension (with bilateral hamstring pain) Hip Goniometric Range of Motion Hip Right Passive Testing Position Supine Straight Leg Raise 55 Internal Rotation 20 External Rotation 50 Left Passive Testing Position Supine Straight Leg Raise 55 Internal Rotation 10 External Rotation 50 PT-OP-L Special Tests Start: 02/09/22 17:26 Freq: Status: Active Protocol: Document 02/13/22 13:04 LRN (Rec: 02/13/22 15:04 LRN [id number]) Special Tests Lumbar Spine Special Tests Straight Leg Raise Test Results + bilaterally Comments SLR is 55 deg's with hamstring /lower leg pain Hip Special Tests Piriformis Comments Pt did not tolerate test position. PT-OP-M Strength Start: 02/09/22 17:26 Freq: Status: Active Protocol: Document 02/13/22 13:04 LRN (Rec: 02/13/22 15:04 LRN [id number]) Trunk Strength Trunk Manual Muscle Testing Testing Position Supine Core Stabilization Pt was not able to maintain core stability with resistance given to LE's. Hip Strength Hip Manual Muscle Testing Right Comments Pt had difficulty coming to full stance with sit<>stand due to knee pain. Left Comments Pt had difficulty coming to full stance with sit<>stand due to knee pain. PT-OP-Q Treatments Start: 02/09/22 17:26 Freq: Status: Active Protocol: Document 02/27/22 13:02 LRN (Rec: 02/27/22 13:47 LRN [id number]) Cardio Equipment Bicycle (Upright) Duration (Minutes) 6 Resistance 3 Seat Position 5 Other Seat might be better at hgt 6. Therapeutic Exercises Supine Exercises Hamstring/LE neural stretch Supine Exercise Name Hamstring/LE neural stretch Side bilateral Reps/Minutes 5' Comments Extra time to determine max tolerated stretch, pt had no c /o back pain Hip ER stretch Supine Exercise Name Fig 4 stretch Side bilateral Comments R side creates spasm in lateral hip, pt had no c/o back pain. Lateral Hip stretch Supine Exercise Name Lateral Hip stretch with foot on opposite knee Side bilateral Reps/Minutes 10 H x 5 each Comments Extra time to determine max tolerated stretch, pt had no c /o back pain Piriformis stretch Supine Exercise Name Ankle over knee & knee to opposite shoulder Side bilateral Reps/Minutes 10 H x 5 each Comments Extra time to determine max tolerated stretch, pt had no c /o back pain KTC stretch Supine Exercise Name SKTC Side bilateral Reps/Minutes 10 H x 5 each Comments Xtra time to determine max tolerated stretch, pt had no c /o LBP, felt good Sitting Exercises Sit<>Supine Sitting Exercise Name Transfer training Side bilateral Reps/Minutes 5' Standing Exercises Gait/TA strengthening Standing Exercise Name Walking training for TA tightening Reps/Minutes 4' Self-Care/Home Management Treatment Education Patient Education Home Exercise Program Activities Self-Care/Home Management Activities Issued & reviewed HEP: Hip stretches (piriformis, lateral hip, fig 4). PT-OP-T Assessment and Plan Start: 02/09/22 17:26 Freq: Status: Active Protocol: Document 02/27/22 13:02 LRN (Rec: 02/27/22 13:47 [facility] [id number]) Physical Therapy Assessment Goals Four Impairment Bilateral thigh pain Impairment Thigh pain 5-6/10 with occasional 8-9 shooting pain. LEFS is 44 with one question unanswered (40-59% impaired with score 32-47) Short Term Goal (STG) Decrease thigh pain to 2-3/10, with pt able to ambulate with a stable gait and greater ease. STG Duration 04/01/22 Senior Datastage Developer Goal (LTG) Improve function per LEFS score 48-62 (20-39% impaired) LTG Duration 05/14/22 Three Impairment Difficulty falling asleep at night Short Term Goal (STG) Pt able to tolerate lying on her sides for short periods of time without severe pain. STG Duration 04/01/22 Senior Datastage Developer Goal (LTG) Decrease amount of bilateral hip pain when lying down at night with pt able to go to sleep with ease. LTG Duration 05/14/22 Two Impairment Pain limiting walking Impairment Pain limiting walking to 15-20 minutes before needing to stop and stretch due to pain. Short Term Goal (STG) Pt will be able to SLS 10 secs or greater for improved balance. STG Duration 04/01/22 Senior Datastage Developer Goal (LTG) Decrease LBP with walking to tolerated 30 minutes or more walking for exercise on level surface. LTG Duration 05/14/22 One Impairment Pt is not consistent on a HEP Short Term Goal (STG) Pt will be educated in self care pain management with use of modalities and proper body mechanics for ADLs and transfers. (02/15/22: Pt educated in proper sup>sit>stand with log roll method & discussed proper body mechanics for picking up objects) STG Duration 04/01/22 (02/15/22: Progressed) Senior Datastage Developer Goal (LTG) Independent and consistent with a final self care HEP of back and hip ex's. (02/27/22: HEP issued of hip stretches: fig 4, lateral hip, piriformis). LTG Duration 05/14/22 (02/27/22: Progressed ) Assessment Summary Assessment Mechanical dysfunction of grade 1, L4-L5 degenerative spondylolisthesis, Multilevel degenerative disease and Multilevel facet arthropathy causing LE pain. Proper pelvic alignement is not maintained after Pelvic bracing. With gait pt has excessive sway but improved hip sway. Getting onto upright ex bike pt c/o lateral thigh pain. Initial start of pedalng on upright bike pt had minor pain in bilateral knees that diminished to tightness of calfs. Pt needed frequent reminders to stabilize core with TA tightening. She tolerated hip stretches without complaints of back pain. Physical Therapy Plan Frequency and Duration Frequency of Treatment 2x/Week Plan of Care Start Date 02/13/22 Plan of Care End Date 05/14/22 Next Visit Focus/Plan Next Note Type Treatment Note Next Visit Plan Educated in self care pain management with use of modalities and proper body mechanics for ADLs, HEP: Hip ext stretch and core stab. Manual: IT Band and trunk rotator stretching. Ther Ex: Core stabilization, monitor for normalized hip mobility, aerobic conditioning for walking and core stab. Modailities: US, treat bilateral Bursitis/Sciatic pain.
--- NOTE | 2022-03-01 16:23 | PT.OTN ---
Current Diagnoses Pain in unspecified hip (03/01/22) Dorsalgia, unspecified (03/01/22) Muscle weakness (generalized) (03/01/22) Other abnormalities of gait and mobility (03/01/22) Physical Therapy Treatment Note PT-OP-A Visit Information Start: 02/09/22 17:26 Freq: Status: Active Protocol: Document 03/01/22 15:22 LRN (Rec: 03/01/22 16:22 LRN [id number]) Out-Patient Physical Therapy Visit Information Visit Information Visit Type Treatment Note Visit Start Time 15: Visit Stop Time 16:02 Total Visit Minutes 40 Visit Number 6 Evaluation Information Evaluation Date 02/13/22 Precautions Precautions Type 2 Diabetes mellitus, blood sugar levels unstable, fractured L ankle with isabel in tibia, with plates and screws at L ankle. Record review indicates: Seizure disorder~ 2008, skin cancer ~2013, Obesity 02/08/22 (BMI 30.0-34.9 ) PT-OP-B Current Condition Start: 02/09/22 17:26 Freq: Status: Active Protocol: Document 02/13/22 13:04 LRN (Rec: 02/13/22 15:04 LRN [id number]) Current Condition History of Current Condition Onset Date 09/2020. Problem with walking in 2019. Current Complaints Lower back and bursitis pain, sometime legs give out due to pain, ache. History of Current Condition Has had lower back pain and bilateral bursitis since 2019. Has had bursitis one or two times in the past. Pt doesn't think about her pain and has difficulty identifying her pain intensity. She has tight IT Bands with tenderness noted. Her L leg aches sometimes and with sit to stand sometimes the leg gives out. She sometimes takes IBP. Has been having pains in the buttocks that her spouse thinks is her sciatic nerve. Has midback pain 40-50% of the time. Can't do housework for > 1/2 hr. Leg length dicrepancy with L leg 1 shorter than the R. Lift in L shoe put in 2019 by customer consulting manager. Prior Treatments and Tests P.T. at [facility] from winter to winter but discontinued due to Covid fears. P.T. with Joesph Dias in Nov 2021, for 1-1.5 months, but was getting an emotional trigger and couldn't continue; therefore wants a female therapist. She states her pain did lessen overall some. She wasn't always consistent with her exercises. X-rays of L/S: Grade 1 L4-L5 degenerative spondylolisthesis , Multilevel degenerative disease, Multilevel facet arthropathy. Developmental History Developmental History Tailbone injury at 18 yo. Treatment Goals Patient/Caregiver Goals Pt goal: Exercise to reduce pain so that it doesn't interrupt her while she walks (Walking 10-15' LB becomes so tight that she needs to stretch out her low back), month ago pain in legs started and would like it to go away, eliminate balance problems. Prior Functional Status Baseline Function- ADL's Independent Baseline Function- Mobility Independent Baseline Function- Gait Before 2018 didn't notice back being a hinderance with hiking, walking. Baseline Function- Other Able to bend down and pick things up without thinking or hesitation 2 yrs ago. Current Functional Impairments (Reported) Functional Limitations- ADL's Must bend down slowly to pick things up. Functional Limitations- Mobility/Gait Brisk walk for only 15-20' Personal Factors Other Personal Factors That May Effect Records indicate an eating Therapy/Recovery disorder, obesity (not morbid) with BMI 32.5. Intake form indicates seizures 2009, arthritis, diabetes II, thyroid disorder. PT-OP-C Subjective Start: 02/09/22 17:26 Freq: Status: Active Protocol: Document 03/01/22 15:22 LRN (Rec: 03/01/22 16:22 LRN [id number]) OP-PT Subjective Patient Comments Patient Comments States went for a walk after last session and didn't have the anterior thigh pain but had tightening of the low back . Is having less sporadic pain in the leg. When walking straightens the back more often. PT-OP-D Balance Start: 02/09/22 17:26 Freq: Status: Active Protocol: Document 02/13/22 13:04 LRN (Rec: 02/13/22 15:04 LRN [id number]) Balance Tests Single Limb Standing Single Limb- Right 3 secs, without shoes Single Limb- Left 3 secs, without shoes PT-OP-H Neuro Start: 02/09/22 17:26 Freq: Status: Active Protocol: Document 02/13/22 13:04 LRN (Rec: 02/13/22 15:04 LRN [id number]) Sensation Evaluation Gross Sensation Gross Sensation WNL PT-OP-J Posture/Palpation/Skin Start: 02/09/22 17:26 Freq: Status: Active Protocol: Document 02/13/22 13:04 LRN (Rec: 02/13/22 15:04 LRN [id number]) Posture Evaluation Position Standing Head/C-Spine Posture Forward Head T-Spine Posture Increased Kyphosis Shoulder Posture (L) Elevated Pelvis Posture (L) Rotated Anterior,(R) Rotated Posterior,(R) Iliac Crest Superior Comments Posture Comments L leg in ER, pants left rotated. Sacrum is R rotated Palpation Assessment Location L hip Palpation Location TFL muscle & IT band, Piriformis Palpation Findings Tenderness R hip Palpation Location TFL muscle & IT band, Piriformis Palpation Findings Tenderness Back Palpation Location Across low back at sacral level Palpation Findings Tenderness PT-OP-K Range of Motion Start: 02/09/22 17:26 Freq: Status: Active Protocol: Document 02/13/22 13:04 LRN (Rec: 02/13/22 15:04 LRN [id number]) Lumbar Spine Range of Motion Lumbar Spine Active Degrees Testing Position Standing Flexion 75 Extension 11 Lateral Flexion Left 6 Lateral Flexion Right 13 ROM Limitations Pain Comments Flexion is with 38 deg's hip flexion Extension is with 5 deg's hip extension (with bilateral hamstring pain) Hip Goniometric Range of Motion Hip Right Passive Testing Position Supine Straight Leg Raise 55 Internal Rotation 20 External Rotation 50 Left Passive Testing Position Supine Straight Leg Raise 55 Internal Rotation 10 External Rotation 50 PT-OP-L Special Tests Start: 02/09/22 17:26 Freq: Status: Active Protocol: Document 02/13/22 13:04 LRN (Rec: 02/13/22 15:04 LRN [id number]) Special Tests Lumbar Spine Special Tests Straight Leg Raise Test Results + bilaterally Comments SLR is 55 deg's with hamstring /lower leg pain Hip Special Tests Piriformis Comments Pt did not tolerate test position. PT-OP-M Strength Start: 02/09/22 17:26 Freq: Status: Active Protocol: Document 02/13/22 13:04 LRN (Rec: 02/13/22 15:04 LRN [id number]) Trunk Strength Trunk Manual Muscle Testing Testing Position Supine Core Stabilization Pt was not able to maintain core stability with resistance given to LE's. Hip Strength Hip Manual Muscle Testing Right Comments Pt had difficulty coming to full stance with sit<>stand due to knee pain. Left Comments Pt had difficulty coming to full stance with sit<>stand due to knee pain. PT-OP-Q Treatments Start: 02/09/22 17:26 Freq: Status: Active Protocol: Document 03/01/22 15:22 LRN (Rec: 03/01/22 16:22 LRN [id number]) Therapeutic Exercises Supine Exercises Hamstring/LE neural stretch Supine Exercise Name Hamstring/LE neural stretch Side bilateral Reps/Minutes 6' Comments Extra time to determine max tolerated stretch, pt had no c /o back pain Hip ER stretch Supine Exercise Name Fig 4 stretch Side bilateral Reps/Minutes 5' (60 H x 1 each) Comments Extra time for retraining, pt had no c/o back pain Lateral Hip stretch Supine Exercise Name Lateral Hip stretch with foot on opposite knee Side bilateral Reps/Minutes 5' (60 H x 1 each) Comments Extra time for retraining, pt had no c/o back pain Piriformis stretch Supine Exercise Name Ankle over knee & knee to opposite shoulder Side bilateral Reps/Minutes 5' (60 H x 1 each) Comments Extra time to determine max tolerated stretch, pt had no c /o back pain KTC stretch Supine Exercise Name SKTC Side bilateral Reps/Minutes 10 H x 5 each Comments Xtra time to determine max tolerated stretch, pt had no c /o LBP, felt good Sitting Exercises Sit<>Stand Sitting Exercise Name Transfer training Reps/Minutes 2' Sit<>Supine Sitting Exercise Name Transfer training Side bilateral Reps/Minutes 5'' Standing Exercises Hip Flexor stretch Standing Exercise Name Hip Flexor stretch Side bilateral Reps/Minutes 1' stretch Comments Extra time needed for proper positioning and production of stretch Self-Care/Home Management Treatment Education Patient Education Body Mechanics Other Education Transfer training education review of stand<>supine. Pt educated in proper body mechanics for ADLs and transfers. Activities Self-Care/Home Management Activities Issued HEP for hip flexor stretch. PT-OP-T Assessment and Plan Start: 02/09/22 17:26 Freq: Status: Active Protocol: Document 03/01/22 15:22 LRN (Rec: 03/01/22 16:22 LRN [id number]) Physical Therapy Assessment Goals Four Impairment Bilateral thigh pain Impairment Thigh pain 5-6/10 with occasional 8-9 shooting pain. LEFS is 44 with one question unanswered (40-59% impaired with score 32-47) Short Term Goal (STG) Decrease thigh pain to 2-3/10, with pt able to ambulate with a stable gait and greater ease. (03/01/22: Occasionally pt has no anterior thigh pain) STG Duration 04/01/22 Usp Goal (LTG) Improve function per LEFS score 48-62 (20-39% impaired) LTG Duration 05/14/22 Three Impairment Difficulty falling asleep at night Short Term Goal (STG) Pt able to tolerate lying on her sides for short periods of time without severe pain. STG Duration 04/01/22 Usp Goal (LTG) Decrease amount of bilateral hip pain when lying down at night with pt able to go to sleep with ease. LTG Duration 05/14/22 Two Impairment Pain limiting walking Impairment Pain limiting walking to 15-20 minutes before needing to stop and stretch due to pain. Short Term Goal (STG) Pt will be able to SLS 10 secs or greater for improved balance. STG Duration 04/01/22 Usp Goal (LTG) Decrease LBP with walking to tolerated 30 minutes or more walking for exercise on level surface. LTG Duration 05/14/22 One Impairment Pt is not consistent on a HEP Short Term Goal (STG) Pt will be educated in self care pain management with use of modalities and proper body mechanics for ADLs and transfers. (02/15/22: Pt educated in proper sup>sit>stand with log roll method & discussed proper body mechanics for picking up objects) (03/01/22: Pt educated in proper body mechanics for ADLs and transfers, and handouts issued). STG Duration 04/01/22 (03/01/22: Progressed ) Usp Goal (LTG) Independent and consistent with a final self care HEP of back and hip ex's. (02/27/22: HEP issued of hip stretches: fig 4, lateral hip, piriformis). (03/01/22: HEP issued hip flexor stretch). LTG Duration 05/14/22 (03/01/22: Progressed ) Progress Towards Goals Progress Comments Progressed HEP. Improving tolerance to walking with less anterior thigh pain . Assessment Summary Assessment No c/o back pain or ms spasms with hip stretches. Pt did not seem too familiar with ex' s; therefore compliance is questionable. Pt able to position correctly to get appropriate stretch with ex's, with cuing, and she appears to have a better understanding of how posture and body mechanics can effect back and LE pain. Physical Therapy Plan Frequency and Duration Frequency of Treatment 2x/Week Plan of Care Start Date 02/13/22 Plan of Care End Date 05/14/22 Next Visit Focus/Plan Next Note Type Treatment Note Next Visit Plan Educated in self care pain management with use of modalities. Review HEP issued of hip flexor stretch HEP: Core stab. Manual: IT Band and trunk rotator stretching. Ther Ex: Core stabilization, monitor for normalized hip mobility, aerobic conditioning for walking and core stab. Modailities: US, treat bilateral Bursitis/Sciatic pain.
--- NOTE | 2022-03-05 16:31 | PT.OTN ---
Current Diagnoses Pain in unspecified hip (03/05/22) Dorsalgia, unspecified (03/05/22) Muscle weakness (generalized) (03/05/22) Other abnormalities of gait and mobility (03/05/22) Physical Therapy Treatment Note PT-OP-A Visit Information Start: 02/09/22 17:26 Freq: Status: Active Protocol: Document 03/05/22 14:03 LRN (Rec: 03/05/22 14:32 LRN [id number]) Out-Patient Physical Therapy Visit Information Visit Information Visit Type Treatment Note Visit Start Time 14:02 Visit Stop Time 14:30 Total Visit Minutes 28 Visit Number 7 Evaluation Information Evaluation Date 02/13/22 Precautions Precautions Type 2 Diabetes mellitus, blood sugar levels unstable, fractured L ankle with isabel in tibia, with plates and screws at L ankle. Record review indicates: Seizure disorder~ 2008, skin cancer ~2013, Obesity 02/08/22 (BMI 30.0-34.9 ) PT-OP-B Current Condition Start: 02/09/22 17:26 Freq: Status: Active Protocol: Document 02/13/22 13:04 LRN (Rec: 02/13/22 15:04 LRN [id number]) Current Condition History of Current Condition Onset Date 09/2020. Problem with walking in 2019. Current Complaints Lower back and bursitis pain, sometime legs give out due to pain, ache. History of Current Condition Has had lower back pain and bilateral bursitis since 2019. Has had bursitis one or two times in the past. Pt doesn't think about her pain and has difficulty identifying her pain intensity. She has tight IT Bands with tenderness noted. Her L leg aches sometimes and with sit to stand sometimes the leg gives out. She sometimes takes IBP. Has been having pains in the buttocks that her spouse thinks is her sciatic nerve. Has midback pain 40-50% of the time. Can't do housework for > 1/2 hr. Leg length dicrepancy with L leg 1 shorter than the R. Lift in L shoe put in 2019 by consulting solution manager. Prior Treatments and Tests P.T. at [facility] from winter to winter but discontinued due to Covid fears. P.T. with Joesph Dias in Nov 2021, for 1-1.5 months, but was getting an emotional trigger and couldn't continue; therefore wants a female therapist. She states her pain did lessen overall some. She wasn't always consistent with her exercises. X-rays of L/S: Grade 1 L4-L5 degenerative spondylolisthesis , Multilevel degenerative disease, Multilevel facet arthropathy. Developmental History Developmental History Tailbone injury at 18 yo. Treatment Goals Patient/Caregiver Goals Pt goal: Exercise to reduce pain so that it doesn't interrupt her while she walks (Walking 10-15' LB becomes so tight that she needs to stretch out her low back), month ago pain in legs started and would like it to go away, eliminate balance problems. Prior Functional Status Baseline Function- ADL's Independent Baseline Function- Mobility Independent Baseline Function- Gait Before 2018 didn't notice back being a hinderance with hiking, walking. Baseline Function- Other Able to bend down and pick things up without thinking or hesitation 2 yrs ago. Current Functional Impairments (Reported) Functional Limitations- ADL's Must bend down slowly to pick things up. Functional Limitations- Mobility/Gait Brisk walk for only 15-20' Personal Factors Other Personal Factors That May Effect Records indicate an eating Therapy/Recovery disorder, obesity (not morbid) with BMI 32.5. Intake form indicates seizures 2009, arthritis, diabetes II, thyroid disorder. 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 2 days after the last session, didn't have pain in the thighs. PT-OP-D Balance Start: 02/09/22 17:26 Freq: Status: Active Protocol: Document 02/13/22 13:04 LRN (Rec: 02/13/22 15:04 LRN [id number]) Balance Tests Single Limb Standing Single Limb- Right 3 secs, without shoes Single Limb- Left 3 secs, without shoes PT-OP-H Neuro Start: 02/09/22 17:26 Freq: Status: Active Protocol: Document 02/13/22 13:04 LRN (Rec: 02/13/22 15:04 LRN [id number]) Sensation Evaluation Gross Sensation Gross Sensation WNL PT-OP-J Posture/Palpation/Skin Start: 02/09/22 17:26 Freq: Status: Active Protocol: Document 02/13/22 13:04 LRN (Rec: 02/13/22 15:04 LRN [id number]) Posture Evaluation Position Standing Head/C-Spine Posture Forward Head T-Spine Posture Increased Kyphosis Shoulder Posture (L) Elevated Pelvis Posture (L) Rotated Anterior,(R) Rotated Posterior,(R) Iliac Crest Superior Comments Posture Comments L leg in ER, pants left rotated. Sacrum is R rotated Palpation Assessment Location L hip Palpation Location TFL muscle & IT band, Piriformis Palpation Findings Tenderness R hip Palpation Location TFL muscle & IT band, Piriformis Palpation Findings Tenderness Back Palpation Location Across low back at sacral level Palpation Findings Tenderness PT-OP-K Range of Motion Start: 02/09/22 17:26 Freq: Status: Active Protocol: Document 02/13/22 13:04 LRN (Rec: 02/13/22 15:04 LRN [id number]) Lumbar Spine Range of Motion Lumbar Spine Active Degrees Testing Position Standing Flexion 75 Extension 11 Lateral Flexion Left 6 Lateral Flexion Right 13 ROM Limitations Pain Comments Flexion is with 38 deg's hip flexion Extension is with 5 deg's hip extension (with bilateral hamstring pain) Hip Goniometric Range of Motion Hip Right Passive Testing Position Supine Straight Leg Raise 55 Internal Rotation 20 External Rotation 50 Left Passive Testing Position Supine Straight Leg Raise 55 Internal Rotation 10 External Rotation 50 PT-OP-L Special Tests Start: 02/09/22 17:26 Freq: Status: Active Protocol: Document 02/13/22 13:04 LRN (Rec: 02/13/22 15:04 LRN [id number]) Special Tests Lumbar Spine Special Tests Straight Leg Raise Test Results + bilaterally Comments SLR is 55 deg's with hamstring /lower leg pain Hip Special Tests Piriformis Comments Pt did not tolerate test position. PT-OP-M Strength Start: 02/09/22 17:26 Freq: Status: Active Protocol: Document 02/13/22 13:04 LRN (Rec: 02/13/22 15:04 LRN [id number]) Trunk Strength Trunk Manual Muscle Testing Testing Position Supine Core Stabilization Pt was not able to maintain core stability with resistance given to LE's. Hip Strength Hip Manual Muscle Testing Right Comments Pt had difficulty coming to full stance with sit<>stand due to knee pain. Left Comments Pt had difficulty coming to full stance with sit<>stand due to knee pain. PT-OP-Q Treatments Start: 02/09/22 17:26 Freq: Status: Active Protocol: Document 03/05/22 14:03 LRN (Rec: 03/05/22 14:32 LRN [id number]) Therapeutic Exercises Standing Exercises Hip Flexor stretch Standing Exercise Name Hip Flexor stretch Side bilateral Reps/Minutes 1' stretch each Comments Extra time needed for proper positioning and production of stretch Manual Therapy Treatment Soft Tissue Mobilization Thoracic paraspinals Body Location R>L Thoracic paraspinals Mobilization Type Strumming,Sustained Pressure Intensity/Depth Moderate Body Position Prone Manual Traction Lumbar Details Intermittent manual tx with belt over mid to distal thighs Body Position Hooklying Reps/Duration 14' Comments Relief of lateral thigh pain with traction. Self-Care/Home Management Treatment Education Patient Education Pain Management Other Education Discussed & educated pt in use of modalities (hot/ cryotherapy) for pain management. Activities Self-Care/Home Management Activities Reviewed hip flexor stretch. PT-OP-T Assessment and Plan Start: 02/09/22 17:26 Freq: Status: Active Protocol: Document 03/05/22 14:03 LRN (Rec: 03/05/22 14:32 LRN [id number]) Physical Therapy Assessment Goals Four Impairment Bilateral thigh pain Impairment Thigh pain 5-6/10 with occasional 8-9 shooting pain. LEFS is 44 with one question unanswered (40-59% impaired with score 32-47) Short Term Goal (STG) Decrease thigh pain to 2-3/10, with pt able to ambulate with a stable gait and greater ease. 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 STG Duration 04/01/22 Fdc Goal (LTG) Improve function per LEFS score 48-62 (20-39% impaired) LTG Duration 05/14/22 Three Impairment Difficulty falling asleep at night Short Term Goal (STG) Pt able to tolerate lying on her sides for short periods of time without severe pain. STG Duration 04/01/22 Direct Marketing Coordinator Goal (LTG) Decrease amount of bilateral hip pain when lying down at night with pt able to go to sleep with ease. LTG Duration 05/14/22 Two Impairment Pain limiting walking Impairment Pain limiting walking to 15-20 minutes before needing to stop and stretch due to pain. Short Term Goal (STG) Pt will be able to SLS 10 secs or greater for improved balance. STG Duration 04/01/22 Fdc Goal (LTG) Decrease LBP with walking to tolerated 30 minutes or more walking for exercise on level surface. LTG Duration 05/14/22 One Impairment Pt is not consistent on a HEP Short Term Goal (STG) Pt will be educated in self care pain management with use of modalities and proper body mechanics for ADLs and transfers. (02/15/22: Pt educated in proper sup>sit>stand with log roll method & discussed proper body mechanics for picking up objects) (03/01/22: Pt educated in proper body mechanics for ADLs and transfers, and handouts issued). STG Duration 04/01/22 (03/01/22: Progressed ) Fdc Goal (LTG) Independent and consistent with a final self care HEP of back and hip ex's. (02/27/22: HEP issued of hip stretches: fig 4, lateral hip, piriformis). (03/01/22: HEP issued hip flexor stretch). LTG Duration 05/14/22 (03/01/22: Progressed ) Assessment Summary Assessment Educated pt in self care pain management with use of modalities. Reviewed HEP of hip flexor stretch, pt needed review, poor recall of positioning or pelvic tilting to get stretch. 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 Pt had relief of abby IT Band discomforts with manual lumbar traction, and relief of her upper back pain after STM to paraspinals. Physical Therapy Plan Frequency and Duration Frequency of Treatment 2x/Week Plan of Care Start Date 02/13/22 Plan of Care End Date 05/14/22 Next Visit Focus/Plan Next Note Type Treatment Note Next Visit Plan HEP: Core stab. Manual: IT Band and trunk rotator stretching. Modailities: US, treat bilateral Bursitis (?sciatic pain). Ther Ex: Core stabilization, monitor for normalized hip mobility, aerobic conditioning for walking and core stab.
--- NOTE | 2022-03-16 15:20 | PT.OTN ---
Current Diagnoses Pain in unspecified hip (03/16/22) Dorsalgia, unspecified (03/16/22) Muscle weakness (generalized) (03/16/22) Other abnormalities of gait and mobility (03/16/22) Physical Therapy Treatment Note PT-OP-A Visit Information Start: 02/09/22 17:26 Freq: Status: Active Protocol: Document 03/16/22 14:34 SP (Rec: 03/16/22 15:37 SP [id number]) Out-Patient Physical Therapy Visit Information Visit Information Visit Type Treatment Note Visit Start Time 14:34 Visit Stop Time 15:20 Total Visit Minutes 46 Visit Number 8 Number of MASONRY INSPECTOR Visits 1 Evaluation Information Evaluation Date 02/13/22 Precautions Precautions Type 2 Diabetes mellitus, blood sugar levels unstable, fractured L ankle with isabel in tibia, with plates and screws at L ankle. Record review indicates: Seizure disorder~ 2008, skin cancer ~2013, Obesity 02/08/22 (BMI 30.0-34.9 ) PT-OP-B Current Condition Start: 02/09/22 17:26 Freq: Status: Active Protocol: Document 02/13/22 13:04 LRN (Rec: 02/13/22 15:04 LRN [id number]) Current Condition History of Current Condition Onset Date 09/2020. Problem with walking in 2019. Current Complaints Lower back and bursitis pain, sometime legs give out due to pain, ache. History of Current Condition Has had lower back pain and bilateral bursitis since 2019. Has had bursitis one or two times in the past. Pt doesn't think about her pain and has difficulty identifying her pain intensity. She has tight IT Bands with tenderness noted. Her L leg aches sometimes and with sit to stand sometimes the leg gives out. She sometimes takes IBP. Has been having pains in the buttocks that her spouse thinks is her sciatic nerve. Has midback pain 40-50% of the time. Can't do housework for > 1/2 hr. Leg length dicrepancy with L leg 1 shorter than the R. Lift in L shoe put in 2019 by environmental engineering manager. Prior Treatments and Tests P.T. at [facility] from winter to winter but discontinued due to Covid fears. P.T. with Joesph Dias in Nov 2021, for 1-1.5 months, but was getting an emotional trigger and couldn't continue; therefore wants a female therapist. She states her pain did lessen overall some. She wasn't always consistent with her exercises. X-rays of L/S: Grade 1 L4-L5 degenerative spondylolisthesis , Multilevel degenerative disease, Multilevel facet arthropathy. Developmental History Developmental History Tailbone injury at 18 yo. Treatment Goals Patient/Caregiver Goals Pt goal: Exercise to reduce pain so that it doesn't interrupt her while she walks (Walking 10-15' LB becomes so tight that she needs to stretch out her low back), month ago pain in legs started and would like it to go away, eliminate balance problems. Prior Functional Status Baseline Function- ADL's Independent Baseline Function- Mobility Independent Baseline Function- Gait Before 2019 didn't notice back being a hinderance with hiking, walking. Baseline Function- Other Able to bend down and pick things up without thinking or hesitation 2 yrs ago. Current Functional Impairments (Reported) Functional Limitations- ADL's Must bend down slowly to pick things up. Functional Limitations- Mobility/Gait Brisk walk for only 15-20' Personal Factors Other Personal Factors That May Effect Records indicate an eating Therapy/Recovery disorder, obesity (not morbid) with BMI 32.5. Intake form indicates seizures 2009, arthritis, diabetes II, thyroid disorder. PT-OP-C Subjective Start: 02/09/22 17:26 Freq: Status: Active Protocol: Document 03/16/22 14:34 SP (Rec: 03/16/22 15:37 SP [id number]) OP-PT Subjective Patient Comments Patient Comments Pt stated R LB in to hip really stiff and painful near crest today. Has been working at the [employer] [facility] alot. She states getting tingling numbness on dorsal foot B at times now. PT-OP-D Balance Start: 02/09/22 17:26 Freq: Status: Active Protocol: Document 02/13/22 13:04 LRN (Rec: 02/13/22 15:04 LRN [id number]) Balance Tests Single Limb Standing Single Limb- Right 3 secs, without shoes Single Limb- Left 3 secs, without shoes PT-OP-H Neuro Start: 02/09/22 17:26 Freq: Status: Active Protocol: Document 02/13/22 13:04 LRN (Rec: 02/13/22 15:04 LRN [id number]) Sensation Evaluation Gross Sensation Gross Sensation WNL PT-OP-J Posture/Palpation/Skin Start: 02/09/22 17:26 Freq: Status: Active Protocol: Document 02/13/22 13:04 LRN (Rec: 02/13/22 15:04 LRN [id number]) Posture Evaluation Position Standing Head/C-Spine Posture Forward Head T-Spine Posture Increased Kyphosis Shoulder Posture (L) Elevated Pelvis Posture (L) Rotated Anterior,(R) Rotated Posterior,(R) Iliac Crest Superior Comments Posture Comments L leg in ER, pants left rotated. Sacrum is R rotated Palpation Assessment Location L hip Palpation Location TFL muscle & IT band, Piriformis Palpation Findings Tenderness R hip Palpation Location TFL muscle & IT band, Piriformis Palpation Findings Tenderness Back Palpation Location Across low back at sacral level Palpation Findings Tenderness PT-OP-K Range of Motion Start: 02/09/22 17:26 Freq: Status: Active Protocol: Document 02/13/22 13:04 LRN (Rec: 02/13/22 15:04 LRN [id number]) Lumbar Spine Range of Motion Lumbar Spine Active Degrees Testing Position Standing Flexion 75 Extension 11 Lateral Flexion Left 6 Lateral Flexion Right 13 ROM Limitations Pain Comments Flexion is with 38 deg's hip flexion Extension is with 5 deg's hip extension (with bilateral hamstring pain) Hip Goniometric Range of Motion Hip Right Passive Testing Position Supine Straight Leg Raise 55 Internal Rotation 20 External Rotation 50 Left Passive Testing Position Supine Straight Leg Raise 55 Internal Rotation 10 External Rotation 50 PT-OP-L Special Tests Start: 02/09/22 17:26 Freq: Status: Active Protocol: Document 02/13/22 13:04 LRN (Rec: 02/13/22 15:04 LRN [id number]) Special Tests Lumbar Spine Special Tests Straight Leg Raise Test Results + bilaterally Comments SLR is 55 deg's with hamstring /lower leg pain Hip Special Tests Piriformis Comments Pt did not tolerate test position. PT-OP-M Strength Start: 02/09/22 17:26 Freq: Status: Active Protocol: Document 02/13/22 13:04 LRN (Rec: 02/13/22 15:04 LRN [id number]) Trunk Strength Trunk Manual Muscle Testing Testing Position Supine Core Stabilization Pt was not able to maintain core stability with resistance given to LE's. Hip Strength Hip Manual Muscle Testing Right Comments Pt had difficulty coming to full stance with sit<>stand due to knee pain. Left Comments Pt had difficulty coming to full stance with sit<>stand due to knee pain. PT-OP-Q Treatments Start: 02/09/22 17:26 Freq: Status: Active Protocol: Document 03/16/22 14:34 SP (Rec: 03/16/22 15:37 SP [id number]) Therapeutic Exercises Supine Exercises Hamstring/LE neural stretch Supine Exercise Name Hamstring/LE neural stretch Side bilateral Equipment Used towel behind thigh, lower leg lift and AP Reps/Minutes x10 AP: DF to PF and IV to glide tibial nerve/muscles- good response Comments pain free Hip ER stretch Supine Exercise Name Fig 4 stretch Side bilateral Reps/Minutes 5' (60 H x 1 each) Comments good form, cued breath and allow hip relax/sink toward floor Piriformis stretch Supine Exercise Name Ankle over knee & knee to opposite shoulder Side bilateral Equipment Used supported by BUE Reps/Minutes 5' (60 H x 1 each) Comments good form/response KTC stretch Supine Exercise Name SKTC Side bilateral Reps/Minutes 10 H x 5 each Comments good form, cued breath to allow LB stretch feeling Standing Exercises self STMs Standing Exercise Name B hip: glut med/ max- added to HEP as needed self Equipment Used racquetball/tennis ball on wall Reps/Minutes 30 sec rolling over musculature Comments good feedback response, cued feet staggered allow rayshawn pressure adjust Manual Therapy Treatment Soft Tissue Mobilization R hip Body Location piriformis, glut med, TFL Mobilization Type Myofascial Release,Strumming Intensity/Depth Moderate Body Position Sidelying Comments manual and instruction on self STMs ball wall Self-Care/Home Management Treatment Education Patient Education Home Exercise Program,Pain Management Other Education Time spent answering questions and education benefits of massage and stretching for increased circulation, flexibility and decrease muscle recruitment. Added AP to sciatic nerve flossing with ankle IV to assist decrease dorsal foot tingling/numbness getting lately. PT-OP-T Assessment and Plan Start: 02/09/22 17:26 Freq: Status: Active Protocol: Document 03/16/22 14:34 SP (Rec: 03/16/22 15:37 SP [id number]) Physical Therapy Assessment Goals Four Impairment Bilateral thigh pain Impairment Thigh pain 5-6/10 with occasional 8-9 shooting pain. LEFS is 44 with one question unanswered (40-59% impaired with score 32-47) Short Term Goal (STG) Decrease thigh pain to 2-3/10, with pt able to ambulate with a stable gait and greater ease. 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 STG Duration 04/01/22 Interceptor Operator Goal (LTG) Improve function per LEFS score 48-62 (20-39% impaired) LTG Duration 05/14/22 Three Impairment Difficulty falling asleep at night Short Term Goal (STG) Pt able to tolerate lying on her sides for short periods of time without severe pain. STG Duration 04/01/22 Interceptor Operator Goal (LTG) Decrease amount of bilateral hip pain when lying down at night with pt able to go to sleep with ease. LTG Duration 05/14/22 Two Impairment Pain limiting walking Impairment Pain limiting walking to 15-20 minutes before needing to stop and stretch due to pain. Short Term Goal (STG) Pt will be able to SLS 10 secs or greater for improved balance. STG Duration 04/01/22 Residential Goal (LTG) Decrease LBP with walking to tolerated 30 minutes or more walking for exercise on level surface. LTG Duration 05/14/22 One Impairment Pt is not consistent on a HEP Short Term Goal (STG) Pt will be educated in self care pain management with use of modalities and proper body mechanics for ADLs and transfers. (02/15/22: Pt educated in proper sup>sit>stand with log roll method & discussed proper body mechanics for picking up objects) (03/01/22: Pt educated in proper body mechanics for ADLs and transfers, and handouts issued). STG Duration 04/01/22 (03/01/22: Progressed ) Residential Goal (LTG) Independent and consistent with a final self care HEP of back and hip ex's. (02/27/22: HEP issued of hip stretches: fig 4, lateral hip, piriformis). (03/01/22: HEP issued hip flexor stretch). LTG Duration 05/14/22 (03/01/22: Progressed ) Assessment Summary Assessment Pt good response to manual and instruction carryover self STMs to glut med for home assist. Pt challenged by piriformis stretch so modified use towel vs just cradle knee toward chest while foot over opp leg that is bent on table- better response less tension on neck/back. Ed for anatomy and benefits of continued stretching, massage and move with gained ROM. Pt reported can feel top of foot better and less pain in R hip end tx post manual and self STMs ball wall primarily glut med just under that crest. Physical Therapy Plan Frequency and Duration Frequency of Treatment 2x/Week Plan of Care Start Date 02/13/22 Plan of Care End Date 05/14/22 Therapeutic Interventions Therapeutic Interventions Gait Training,Home Exercise Program,Joint Mobilizations, Manual Therapy,Neuromuscular Re-education,Patient/Caregiver Education,Self-Care/Home Management,Soft Tissue Mobilization,Therapeutic Activities,Therapeutic Exercises Modalities Cold Pack/Ice Massage,Electric Stimulation,Hot Packs, Ultrasound Next Visit Focus/Plan Next Note Type Treatment Note Next Visit Plan Recheck self STMs ballwall glut med. Continue progress HEP: Core stab. Manual: IT Band and trunk rotator stretching. Modailities: US, treat bilateral Bursitis (?sciatic pain). Ther Ex: Core stabilization, monitor for normalized hip mobility, aerobic conditioning for walking and core stab.
--- NOTE | 2022-03-22 10:32 | PT.OTN ---
Current Diagnoses Pain in unspecified hip (03/22/22) Dorsalgia, unspecified (03/22/22) Muscle weakness (generalized) (03/22/22) Other abnormalities of gait and mobility (03/22/22) Physical Therapy Treatment Note PT-OP-A Visit Information Start: 02/09/22 17:26 Freq: Status: Active Protocol: Document 03/22/22 09:52 SP (Rec: 03/22/22 10:33 SP [id number]) Out-Patient Physical Therapy Visit Information Visit Information Visit Type Treatment Note Visit Note PN due soon, 10th visit in 2 tx. Assess goals for progress making. Visit Start Time 09:52 Visit Stop Time 10:32 Total Visit Minutes 40 Visit Number 9 Number of INTERNAL REVENUE AGENT Visits 2 Evaluation Information Evaluation Date 02/13/22 Precautions Precautions Type 2 Diabetes mellitus, blood sugar levels unstable, fractured L ankle with isabel in tibia, with plates and screws at L ankle. Record review indicates: Seizure disorder~ 2008, skin cancer ~2013, Obesity 02/08/22 (BMI 30.0-34.9 ) PT-OP-B Current Condition Start: 02/09/22 17:26 Freq: Status: Active Protocol: Document 02/13/22 13:04 LRN (Rec: 02/13/22 15:04 LRN [id number]) Current Condition History of Current Condition Onset Date 09/2020. Problem with walking in 2019. Current Complaints Lower back and bursitis pain, sometime legs give out due to pain, ache. History of Current Condition Has had lower back pain and bilateral bursitis since 2019. Has had bursitis one or two times in the past. Pt doesn't think about her pain and has difficulty identifying her pain intensity. She has tight IT Bands with tenderness noted. Her L leg aches sometimes and with sit to stand sometimes the leg gives out. She sometimes takes IBP. Has been having pains in the buttocks that her spouse thinks is her sciatic nerve. Has midback pain 40-50% of the time. Can't do housework for > 1/2 hr. Leg length dicrepancy with L leg 1 shorter than the R. Lift in L shoe put in 2019 by structural analysis engineer. Prior Treatments and Tests P.T. at [facility] from winter to winter but discontinued due to Covid fears. P.T. with Joesph Dias in Nov 2021, for 1-1.5 months, but was getting an emotional trigger and couldn't continue; therefore wants a female therapist. She states her pain did lessen overall some. She wasn't always consistent with her exercises. X-rays of L/S: Grade 1 L4-L5 degenerative spondylolisthesis , Multilevel degenerative disease, Multilevel facet arthropathy. Developmental History Developmental History Tailbone injury at 18 yo. Treatment Goals Patient/Caregiver Goals Pt goal: Exercise to reduce pain so that it doesn't interrupt her while she walks (Walking 10-15' LB becomes so tight that she needs to stretch out her low back), month ago pain in legs started and would like it to go away, eliminate balance problems. Prior Functional Status Baseline Function- ADL's Independent Baseline Function- Mobility Independent Baseline Function- Gait Before 2018 didn't notice back being a hinderance with hiking, walking. Baseline Function- Other Able to bend down and pick things up without thinking or hesitation 2 yrs ago. Current Functional Impairments (Reported) Functional Limitations- ADL's Must bend down slowly to pick things up. Functional Limitations- Mobility/Gait Brisk walk for only 15-20' Personal Factors Other Personal Factors That May Effect Records indicate an eating Therapy/Recovery disorder, obesity (not morbid) with BMI 32.5. Intake form indicates seizures 2009, arthritis, diabetes II, thyroid disorder. PT-OP-C Subjective Start: 02/09/22 17:26 Freq: Status: Active Protocol: Document 03/22/22 09:52 SP (Rec: 03/22/22 10:33 SP [id number]) OP-PT Subjective Patient Comments Patient Comments Pt reports after last tx's manual felt good for 2 days. Hasn't had burning down legs since last tx. Forgot to do self STMs ball wall suggested last tx. Performed the stretching self and helped with LBP and so today only have 6/10 and discomfort 4/10 R lateral leg achy annoying. Pleased PT-OP-D Balance Start: 02/09/22 17:26 Freq: Status: Active Protocol: Document 02/13/22 13:04 LRN (Rec: 02/13/22 15:04 LRN [id number]) Balance Tests Single Limb Standing Single Limb- Right 3 secs, without shoes Single Limb- Left 3 secs, without shoes PT-OP-H Neuro Start: 02/09/22 17:26 Freq: Status: Active Protocol: Document 02/13/22 13:04 LRN (Rec: 02/13/22 15:04 LRN [id number]) Sensation Evaluation Gross Sensation Gross Sensation WNL PT-OP-J Posture/Palpation/Skin Start: 02/09/22 17:26 Freq: Status: Active Protocol: Document 02/13/22 13:04 LRN (Rec: 02/13/22 15:04 LRN [id number]) Posture Evaluation Position Standing Head/C-Spine Posture Forward Head T-Spine Posture Increased Kyphosis Shoulder Posture (L) Elevated Pelvis Posture (L) Rotated Anterior,(R) Rotated Posterior,(R) Iliac Crest Superior Comments Posture Comments L leg in ER, pants left rotated. Sacrum is R rotated Palpation Assessment Location L hip Palpation Location TFL muscle & IT band, Piriformis Palpation Findings Tenderness R hip Palpation Location TFL muscle & IT band, Piriformis Palpation Findings Tenderness Back Palpation Location Across low back at sacral level Palpation Findings Tenderness PT-OP-K Range of Motion Start: 02/09/22 17:26 Freq: Status: Active Protocol: Document 02/13/22 13:04 LRN (Rec: 02/13/22 15:04 LRN [id number]) Lumbar Spine Range of Motion Lumbar Spine Active Degrees Testing Position Standing Flexion 75 Extension 11 Lateral Flexion Left 6 Lateral Flexion Right 13 ROM Limitations Pain Comments Flexion is with 38 deg's hip flexion Extension is with 5 deg's hip extension (with bilateral hamstring pain) Hip Goniometric Range of Motion Hip Right Passive Testing Position Supine Straight Leg Raise 55 Internal Rotation 20 External Rotation 50 Left Passive Testing Position Supine Straight Leg Raise 55 Internal Rotation 10 External Rotation 50 PT-OP-L Special Tests Start: 02/09/22 17:26 Freq: Status: Active Protocol: Document 02/13/22 13:04 LRN (Rec: 02/13/22 15:04 LRN [id number]) Special Tests Lumbar Spine Special Tests Straight Leg Raise Test Results + bilaterally Comments SLR is 55 deg's with hamstring /lower leg pain Hip Special Tests Piriformis Comments Pt did not tolerate test position. PT-OP-M Strength Start: 02/09/22 17:26 Freq: Status: Active Protocol: Document 02/13/22 13:04 LRN (Rec: 04/19/22 15:04 LRN [id number]) Trunk Strength Trunk Manual Muscle Testing Testing Position Supine Core Stabilization Pt was not able to maintain core stability with resistance given to LE's. Hip Strength Hip Manual Muscle Testing Right Comments Pt had difficulty coming to full stance with sit<>stand due to knee pain. Left Comments Pt had difficulty coming to full stance with sit<>stand due to knee pain. PT-OP-Q Treatments Start: 02/09/22 17:26 Freq: Status: Active Protocol: Document 03/22/22 09:52 SP (Rec: 03/22/22 10:33 SP [id number]) Therapeutic Exercises Supine Exercises Piriformis stretch Supine Exercise Name hip IR/ ER seated today Side bilateral Equipment Used supported by BUE Reps/Minutes 30 x3 B Comments good form/response Standing Exercises self STMs Standing Exercise Name R hip: glut med, TFL A & P iliac crest- reviewed HEP Equipment Used pink bouncy ball on wall vs small orange blow ball Reps/Minutes rolling over musculature Comments good feedback response, cued feet staggered allow rayshawn pressure adjust Manual Therapy Treatment Soft Tissue Mobilization R hip Body Location piriformis, glut med, TFL Mobilization Type Myofascial Release,Strumming, Sustained Pressure Intensity/Depth Moderate Body Position Sidelying Comments manual and performance review on self STMs ball wall Self-Care/Home Management Treatment Education Patient Education Home Exercise Program,Pain Management Other Education Reviewed self STMs ball wall and stretching home, volunteering at work. PT-OP-T Assessment and Plan Start: 02/09/22 17:26 Freq: Status: Active Protocol: Document 03/22/22 09:52 SP (Rec: 03/22/22 10:33 SP [id number]) Physical Therapy Assessment Goals Four Impairment Bilateral thigh pain Impairment Thigh pain 5-6/10 with occasional 8-9 shooting pain. LEFS is 44 with one question unanswered (40-59% impaired with score 32-47) Short Term Goal (STG) Decrease thigh pain to 2-3/10, with pt able to ambulate with a stable gait and greater ease. 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 STG Duration 04/01/22 Yard Specialist Goal (LTG) Improve function per LEFS score 48-62 (20-39% impaired) LTG Duration 05/14/22 Three Impairment Difficulty falling asleep at night Short Term Goal (STG) Pt able to tolerate lying on her sides for short periods of time without severe pain. STG Duration 04/01/22 Yard Specialist Goal (LTG) Decrease amount of bilateral hip pain when lying down at night with pt able to go to sleep with ease. LTG Duration 05/14/22 Two Impairment Pain limiting walking Impairment Pain limiting walking to 15-20 minutes before needing to stop and stretch due to pain. Short Term Goal (STG) Pt will be able to SLS 10 secs or greater for improved balance. STG Duration 04/01/22 Yard Specialist Goal (LTG) Decrease LBP with walking to tolerated 30 minutes or more walking for exercise on level surface. LTG Duration 05/14/22 One Impairment Pt is not consistent on a HEP Short Term Goal (STG) Pt will be educated in self care pain management with use of modalities and proper body mechanics for ADLs and transfers. (02/15/22: Pt educated in proper sup>sit>stand with log roll method & discussed proper body mechanics for picking up objects) (03/01/22: Pt educated in proper body mechanics for ADLs and transfers, and handouts issued). 03/22/22: reviewed seated PF stretch and self STMs to allow relief to walk. STG Duration 04/01/22 (03/22/22: Progressed) Yard Specialist Goal (LTG) Independent and consistent with a final self care HEP of back and hip ex's. (02/27/22: HEP issued of hip stretches: fig 4, lateral hip, piriformis). (03/01/22: HEP issued hip flexor stretch). 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 LTG Duration 05/14/22 (03/22/22: Progressed) Assessment Summary Assessment Pt responded well annoying 4/ 10 at either end piriformis and little into lateral legs but alot less than when arrived. Tx reviewed self application of self STMs to allow comfort and performance assessment safety. Pt stated when walk not as good effort over R hip. INTERNAL REVENUE AGENT stated will add hip strengthening next tx to progress gait/ balance, pt agreeable. Physical Therapy Plan Frequency and Duration Frequency of Treatment 2x/Week Plan of Care Start Date 02/13/22 Plan of Care End Date 05/14/22 Therapeutic Interventions Therapeutic Interventions Gait Training,Home Exercise Program,Joint Mobilizations, Manual Therapy,Neuromuscular Re-education,Patient/Caregiver Education,Self-Care/Home Management,Soft Tissue Mobilization,Therapeutic Activities,Therapeutic Exercises Modalities Cold Pack/Ice Massage,Electric Stimulation,Hot Packs, Ultrasound Next Visit Focus/Plan Next Note Type Treatment Note Next Visit Plan Recheck self STMs ballwall glut med. Continue progress HEP: hip abd & Core stab: stand shld ext, band walk, hurdles, dynamic gait. Manual: IT Band and trunk rotator stretching. Modailities: US, treat bilateral Bursitis (?sciatic pain). Ther Ex: Core stabilization, monitor for normalized hip mobility, aerobic conditioning for walking and core stab.
--- NOTE | 2022-03-29 16:45 | PT.OTN ---
Current Diagnoses Pain in unspecified hip (03/29/22) Dorsalgia, unspecified (03/29/22) Muscle weakness (generalized) (03/29/22) Other abnormalities of gait and mobility (03/29/22) Physical Therapy Treatment Note PT-OP-A Visit Information Start: 02/09/22 17:26 Freq: Status: Active Protocol: Document 03/29/22 14:38 LRN (Rec: 03/29/22 15:20 LRN [id number]) Out-Patient Physical Therapy Visit Information Visit Information Visit Type Treatment Note Visit Start Time 14:38 Visit Stop Time 15:19 Total Visit Minutes 41 Visit Number 10 Evaluation Information Evaluation Date 02/13/22 Precautions Precautions Type 2 Diabetes mellitus, blood sugar levels unstable, fractured L ankle with isabel in tibia, with plates and screws at L ankle. Record review indicates: Seizure disorder~ 2008, skin cancer ~2013, Obesity 02/08/22 (BMI 30.0-34.9 ) PT-OP-B Current Condition Start: 02/09/22 17:26 Freq: Status: Active Protocol: Document 02/13/22 13:04 LRN (Rec: 02/13/22 15:04 LRN [id number]) Current Condition History of Current Condition Onset Date 09/2020. Problem with walking in 2019. Current Complaints Lower back and bursitis pain, sometime legs give out due to pain, ache. History of Current Condition Has had lower back pain and bilateral bursitis since 2019. Has had bursitis one or two times in the past. Pt doesn't think about her pain and has difficulty identifying her pain intensity. She has tight IT Bands with tenderness noted. Her L leg aches sometimes and with sit to stand sometimes the leg gives out. She sometimes takes IBP. Has been having pains in the buttocks that her spouse thinks is her sciatic nerve. Has midback pain 40-50% of the time. Can't do housework for > 1/2 hr. Leg length dicrepancy with L leg 1 shorter than the R. Lift in L shoe put in 2019 by crossbar frame wirer. Prior Treatments and Tests P.T. at [facility] from winter to winter but discontinued due to Covid fears. P.T. with Joesph Dias in Nov 2021, for 1-1.5 months, but was getting an emotional trigger and couldn't continue; therefore wants a female therapist. She states her pain did lessen overall some. She wasn't always consistent with her exercises. X-rays of L/S: Grade 1 L4-L5 degenerative spondylolisthesis , Multilevel degenerative disease, Multilevel facet arthropathy. Developmental History Developmental History Tailbone injury at 18 yo. Treatment Goals Patient/Caregiver Goals Pt goal: Exercise to reduce pain so that it doesn't interrupt her while she walks (Walking 10-15' LB becomes so tight that she needs to stretch out her low back), month ago pain in legs started and would like it to go away, eliminate balance problems. Prior Functional Status Baseline Function- ADL's Independent Baseline Function- Mobility Independent Baseline Function- Gait Before 2018 didn't notice back being a hinderance with hiking, walking. Baseline Function- Other Able to bend down and pick things up without thinking or hesitation 2 yrs ago. Current Functional Impairments (Reported) Functional Limitations- ADL's Must bend down slowly to pick things up. Functional Limitations- Mobility/Gait Brisk walk for only 15-20' Personal Factors Other Personal Factors That May Effect Records indicate an eating Therapy/Recovery disorder, obesity (not morbid) with BMI 32.5. Intake form indicates seizures 2009, arthritis, diabetes II, thyroid disorder. PT-OP-C Subjective Start: 02/09/22 17:26 Freq: Status: Active Protocol: Document 03/29/22 14:38 LRN (Rec: 03/29/22 15:20 LRN [id number]) OP-PT Subjective Patient Comments Patient Comments Start of medication and started having shooting leg pains so she thinks maybe it is a side effect of her meds. Having fatigue, no COVID. She thinks it may be due to her blood sugar is out of control. Today having pain in the L low back and down the upper thigh (rated 4-5/10). States she has pain in the anterior hips (rated 4-5/10). PT-OP-D Balance Start: 02/09/22 17:26 Freq: Status: Active Protocol: Document 02/13/22 13:04 LRN (Rec: 02/13/22 15:04 LRN [id number]) Balance Tests Single Limb Standing Single Limb- Right 3 secs, without shoes Single Limb- Left 3 secs, without shoes PT-OP-H Neuro Start: 02/09/22 17:26 Freq: Status: Active Protocol: Document 02/13/22 13:04 LRN (Rec: 02/13/22 15:04 LRN [id number]) Sensation Evaluation Gross Sensation Gross Sensation WNL PT-OP-J Posture/Palpation/Skin Start: 02/09/22 17:26 Freq: Status: Active Protocol: Document 02/13/22 13:04 LRN (Rec: 02/13/22 15:04 LRN [id number]) Posture Evaluation Position Standing Head/C-Spine Posture Forward Head T-Spine Posture Increased Kyphosis Shoulder Posture (L) Elevated Pelvis Posture (L) Rotated Anterior,(R) Rotated Posterior,(R) Iliac Crest Superior Comments Posture Comments L leg in ER, pants left rotated. Sacrum is R rotated Palpation Assessment Location L hip Palpation Location TFL muscle & IT band, Piriformis Palpation Findings Tenderness R hip Palpation Location TFL muscle & IT band, Piriformis Palpation Findings Tenderness Back Palpation Location Across low back at sacral level Palpation Findings Tenderness PT-OP-K Range of Motion Start: 02/09/22 17:26 Freq: Status: Active Protocol: Document 02/13/22 13:04 LRN (Rec: 02/13/22 15:04 LRN [id number]) Lumbar Spine Range of Motion Lumbar Spine Active Degrees Testing Position Standing Flexion 75 Extension 11 Lateral Flexion Left 6 Lateral Flexion Right 13 ROM Limitations Pain Comments Flexion is with 38 deg's hip flexion Extension is with 5 deg's hip extension (with bilateral hamstring pain) Hip Goniometric Range of Motion Hip Right Passive Testing Position Supine Straight Leg Raise 55 Internal Rotation 20 External Rotation 50 Left Passive Testing Position Supine Straight Leg Raise 55 Internal Rotation 10 External Rotation 50 PT-OP-L Special Tests Start: 02/09/22 17:26 Freq: Status: Active Protocol: Document 02/13/22 13:04 LRN (Rec: 02/13/22 15:04 LRN [id number]) Special Tests Lumbar Spine Special Tests Straight Leg Raise Test Results + bilaterally Comments SLR is 55 deg's with hamstring /lower leg pain Hip Special Tests Piriformis Comments Pt did not tolerate test position. PT-OP-M Strength Start: 02/09/22 17:26 Freq: Status: Active Protocol: Document 02/13/22 13:04 LRN (Rec: 02/13/22 15:04 LRN [id number]) Trunk Strength Trunk Manual Muscle Testing Testing Position Supine Core Stabilization Pt was not able to maintain core stability with resistance given to LE's. Hip Strength Hip Manual Muscle Testing Right Comments Pt had difficulty coming to full stance with sit<>stand due to knee pain. Left Comments Pt had difficulty coming to full stance with sit<>stand due to knee pain. PT-OP-Q Treatments Start: 02/09/22 17:26 Freq: Status: Active Protocol: Document 03/29/22 14:38 LRN (Rec: 03/29/22 15:20 LRN [id number]) Therapeutic Exercises Supine Exercises Hamstring/LE neural stretch Supine Exercise Name Hamstring/LE neural stretch Side bilateral Equipment Used towel behind thigh, lower leg lift and AP Reps/Minutes x10 AP: DF to PF and IV to glide tibial nerve/muscles- good response Comments pain free Hip ER stretch Supine Exercise Name Fig 4 stretch, f/b active stretch Side bilateral Reps/Minutes 5' (60 H x 1 each) Comments good form, cued breath and allow hip relax/sink toward floor Lateral Hip stretch Supine Exercise Name Lateral Hip stretch with foot on opposite knee Side bilateral Reps/Minutes 5' (60 H x 1 each) Comments Extra time for retraining, pt had no c/o back pain Piriformis stretch Supine Exercise Name hip IR/ ER seated today Side bilateral Equipment Used supported by BUE Reps/Minutes 30 x3 B Comments good form/response Manual Therapy Treatment Soft Tissue Mobilization L hip Body Location Piriformis, glut med, TFL Mobilization Type Instrument Assisted Intensity/Depth Moderate Body Position Sidelye, Prone Lumbar Paraspinals Body Location Lumbar paraspinals Mobilization Type Instrument Assisted Intensity/Depth Moderate Body Position Prone Hamstrings Body Location Hamstrings Mobilization Type Instrument Assisted Intensity/Depth Moderate Body Position Prone R hip Body Location piriformis, glut med, TFL Mobilization Type Instrument Assisted Intensity/Depth Moderate Body Position Sidelye, Prone Comments Verbal Review of ball on wall self STM Self-Care/Home Management Treatment Education Patient Education Home Exercise Program Other Education Verbal review of importance of proper body mechanics and posturing, and discussed use of cryotherapy for pain management when in pain. Discussed timing of use 5'-15' with discussion of avoiding frostbite. Activities Self-Care/Home Management Activities Issued & reviewed HEP for LE hamstring/neural stretch. PT-OP-T Assessment and Plan Start: 02/09/22 17:26 Freq: Status: Active Protocol: Document 03/29/22 14:38 LRN (Rec: 03/29/22 15:20 LRN [id number]) Physical Therapy Assessment Goals Four Impairment Bilateral thigh pain Impairment Thigh pain 5-6/10 with occasional 8-9 shooting pain. LEFS is 44 with one question unanswered (40-59% impaired with score 32-47) Short Term Goal (STG) Decrease thigh pain to 2-3/10, with pt able to ambulate with a stable gait and greater ease. 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 STG Duration 04/01/22 Retirement Goal (LTG) Improve function per LEFS score 48-62 (20-39% impaired) LTG Duration 05/14/22 Three Impairment Difficulty falling asleep at night Short Term Goal (STG) Pt able to tolerate lying on her sides for short periods of time without severe pain. STG Duration 04/01/22 Pleasure Craft Sailor Goal (LTG) Decrease amount of bilateral hip pain when lying down at night with pt able to go to sleep with ease. LTG Duration 05/14/22 Two Impairment Pain limiting walking Impairment Pain limiting walking to 15-20 minutes before needing to stop and stretch due to pain. Short Term Goal (STG) Pt will be able to SLS 10 secs or greater for improved balance. STG Duration 04/01/22 Pleasure Craft Sailor Goal (LTG) Decrease LBP with walking to tolerated 30 minutes or more walking for exercise on level surface. LTG Duration 05/14/22 One Impairment Pt is not consistent on a HEP Short Term Goal (STG) Pt will be educated in self care pain management with use of modalities and proper body mechanics for ADLs and transfers. (02/15/22: Pt educated in proper sup>sit>stand with log roll method & discussed proper body mechanics for picking up objects) (03/01/22: Pt educated in proper body mechanics for ADLs and transfers, and handouts issued). 03/22/22: reviewed seated PF stretch and self STMs to allow relief to walk. STG Duration 04/01/22 (03/29/22: MET GOAL) Pleasure Craft Sailor Goal (LTG) Independent and consistent with a final self care HEP of back and hip ex's. (02/27/22: HEP issued of hip stretches: fig 4, lateral hip, piriformis). (03/01/22: HEP issued hip flexor stretch). 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 (03/29/22: HEP issued of Hamstring/LE neural stretch) LTG Duration 05/14/22 (03/29/22: Progressed ) Progress Towards Goals Progress Comments Progressed HEP Assessment Summary Assessment Pt reporting relief of pain with STM and Trigger point release. L>R Fig 4 stretch is tighter. Relief of pain in the lateral hips and thighs and relief of R hip with some return after walking around. Pt does not appear to have a good recall of flexibilty ex's . Physical Therapy Plan Frequency and Duration Frequency of Treatment 2x/Week Plan of Care Start Date 02/13/22 Plan of Care End Date 05/14/22 Next Visit Focus/Plan Next Note Type Treatment Note Next Visit Plan Assess goals 3 & 4. Initiate walking & balance training. Recheck self STMs ballwall glut med. Continue progress HEP: hip abd & Core stab: stand shld ext, band walk, hurdles, dynamic gait. Manual: IT Band and trunk rotator stretching. Modailities: US, treat bilateral Bursitis (?sciatic pain). Ther Ex: Core stabilization, monitor for normalized hip mobility, aerobic conditioning for walking and core stab.
--- NOTE | 2022-03-29 16:47 | PT.OPPOC ---
Physical, Occupational & Speech Therapy At [facility] Current Diagnoses Pain in unspecified hip (03/29/22) Dorsalgia, unspecified (03/29/22) Muscle weakness (generalized) (03/29/22) Other abnormalities of gait and mobility (03/29/22) Visit Care Team Role Provider Type Joesph Martinez MD Attending Provider Physician Family Provider Primary Care Provider Referring Provider Specialty: Internal Medicine Address: [address] [place] [address], [facility] [address], [place], [facility] Email: [email or web address] Plan Of Care PT-OP-T Assessment and Plan Start: 02/09/22 17:26 Freq: Status: Active Protocol: Document 03/29/22 14:38 LRN (Rec: 03/29/22 15:20 LRN [id number]) Physical Therapy Assessment Rehab Potential Rehabilitation Potential Good Evaluation Complexity Number of Personal Factors/Comorbidities 1-2 Number of Body Systems Impaired 4 or More Clinical Presentation at Evaluation Evolving Impairments Impairments Activity Tolerance,Balance, Gait,Pain,Posture,ROM,Soft Tissue Mobility,Strength Goals Four Impairment Bilateral thigh pain Impairment Thigh pain 5-6/10 with occasional 8-9 shooting pain. LEFS is 44 with one question unanswered (40-59% impaired with score 32-47) Short Term Goal (STG) Decrease thigh pain to 2-3/10, with pt able to ambulate with a stable gait and greater ease. 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 STG Duration 04/01/22 Saw Maker Goal (LTG) Improve function per LEFS score 48-62 (20-39% impaired) LTG Duration 05/14/22 Three Impairment Difficulty falling asleep at night Short Term Goal (STG) Pt able to tolerate lying on her sides for short periods of time without severe pain. STG Duration 04/01/22 Senior Care Goal (LTG) Decrease amount of bilateral hip pain when lying down at night with pt able to go to sleep with ease. LTG Duration 05/14/22 Two Impairment Pain limiting walking Impairment Pain limiting walking to 15-20 minutes before needing to stop and stretch due to pain. Short Term Goal (STG) Pt will be able to SLS 10 secs or greater for improved balance. STG Duration 04/01/22 Saw Maker Goal (LTG) Decrease LBP with walking to tolerated 30 minutes or more walking for exercise on level surface. LTG Duration 05/14/22 One Impairment Pt is not consistent on a HEP Short Term Goal (STG) Pt will be educated in self care pain management with use of modalities and proper body mechanics for ADLs and transfers. (02/15/22: Pt educated in proper sup>sit>stand with log roll method & discussed proper body mechanics for picking up objects) (03/01/22: Pt educated in proper body mechanics for ADLs and transfers, and handouts issued). 03/22/22: reviewed seated PF stretch and self STMs to allow relief to walk. STG Duration 04/01/22 (03/29/22: MET GOAL) Saw Maker Goal (LTG) Independent and consistent with a final self care HEP of back and hip ex's. (02/27/22: HEP issued of hip stretches: fig 4, lateral hip, piriformis). (03/01/22: HEP issued hip flexor stretch). 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 (03/29/22: HEP issued of Hamstring/LE neural stretch) LTG Duration 05/14/22 (03/29/22: Progressed ) Progress Towards Goals Progress Comments Progressed HEP Assessment Summary Assessment Pt reporting relief of pain with STM and Trigger point release. L>R Fig 4 stretch is tighter. Relief of pain in the lateral hips and thighs and relief of R hip with some return after walking around. Pt does not appear to have a good recall of flexibilty ex's . Pt will benefit from continued skilled physical therapy to promote improved balance for safety with gait and to improve tolerance to ambulation. Physical Therapy Plan Frequency and Duration Frequency of Treatment 2x/Week Plan of Care Start Date 02/13/22 Plan of Care End Date 05/14/22 Next Visit Focus/Plan Next Note Type Treatment Note Next Visit Plan Assess goals 3 & 4. Initiate walking & balance training. Recheck self STMs ballwall glut med. Continue progress HEP: hip abd & Core stab: stand shld ext, band walk, hurdles, dynamic gait. Manual: IT Band and trunk rotator stretching. Modailities: US, treat bilateral Bursitis (?sciatic pain). Ther Ex: Core stabilization, monitor for normalized hip mobility, aerobic conditioning for walking and core stab. Plan of Care Dates Plan of Care Start Date 02/13/22 Plan of Care End Date 05/14/22 Electronically Signed by: Ann Avila, PT 03/29/22 [id number] If you are in agreement with this Plan of Care, please return a signed and dated copy. I have reviewed this Plan of Care and certify that the skilled therapy services above are required to meet the patient?s needs. Physician Signature Date Printed Name and Credentials Clinical Instructor Signature Printed Name and Credentials
--- NOTE | 2022-04-02 13:47 | PT.OTN ---
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 Record review indicates: Seizure disorder~ 2008, skin cancer ~2013, Obesity 02/08/22 (BMI 30.0-34.9 ) PT-OP-B Current Condition Start: 02/09/22 17:26 Freq: Status: Active Protocol: Document 02/13/22 13:04 LRN (Rec: 02/13/22 15:04 LRN [id number]) Current Condition History of Current Condition Onset Date 09/2020. Problem with walking in 2019. Current Complaints Lower back and bursitis pain, sometime legs give out due to pain, ache. History of Current Condition Has had lower back pain and bilateral bursitis since 2019. Has had bursitis one or two times in the past. Pt doesn't think about her pain and has difficulty identifying her pain intensity. She has tight IT Bands with tenderness noted. Her L leg aches sometimes and with sit to stand sometimes the leg gives out. She sometimes takes IBP. Has been having pains in the buttocks that her spouse thinks is her sciatic nerve. Has midback pain 40-50% of the time. Can't do housework for > 1/2 hr. Leg length dicrepancy with L leg 1 shorter than the R. Lift in L shoe put in 2019 by territory account representative. Prior Treatments and Tests P.T. at [facility] from winter to winter but discontinued due to Covid fears. P.T. with Joesph Dias in Nov 2021, for 1-1.5 months, but was getting an emotional trigger and couldn't continue; therefore wants a female therapist. She states her pain did lessen overall some. She wasn't always consistent with her exercises. X-rays of L/S: Grade 1 L4-L5 degenerative spondylolisthesis , Multilevel degenerative disease, Multilevel facet arthropathy. Developmental History Developmental History Tailbone injury at 18 yo. Treatment Goals Patient/Caregiver Goals Pt goal: Exercise to reduce pain so that it doesn't interrupt her while she walks (Walking 10-15' LB becomes so tight that she needs to stretch out her low back), month ago pain in legs started and would like it to go away, eliminate balance problems. Prior Functional Status Baseline Function- ADL's Independent Baseline Function- Mobility Independent Baseline Function- Gait Before 2018 didn't notice back being a hinderance with hiking, walking. Baseline Function- Other Able to bend down and pick things up without thinking or hesitation 2 yrs ago. Current Functional Impairments (Reported) Functional Limitations- ADL's Must bend down slowly to pick things up. Functional Limitations- Mobility/Gait Brisk walk for only 15-20' Personal Factors Other Personal Factors That May Effect Records indicate an eating Therapy/Recovery disorder, obesity (not morbid) with BMI 32.5. Intake form indicates seizures 2009, arthritis, diabetes II, thyroid disorder. PT-OP-C Subjective Start: 02/09/22 17:26 Freq: Status: Active Protocol: Document 04/02/22 13:01 SP (Rec: 04/02/22 14:03 SP [id number]) OP-PT Subjective Patient Comments Patient Comments Pt states pain in legs less but still get burning in thighs, stretching helps. Yesterday had to wt shift R and L in nondenominational for relief comfort and had shooting pain posterior thighs when sat down . PT-OP-D Balance Start: 02/09/22 17:26 Freq: Status: Active Protocol: Document 02/13/22 13:04 LRN (Rec: 02/13/22 15:04 LRN [id number]) Balance Tests Single Limb Standing Single Limb- Right 3 secs, without shoes Single Limb- Left 3 secs, without shoes PT-OP-H Neuro Start: 02/09/22 17:26 Freq: Status: Active Protocol: Document 02/13/22 13:04 LRN (Rec: 02/13/22 15:04 LRN [id number]) Sensation Evaluation Gross Sensation Gross Sensation WNL PT-OP-J Posture/Palpation/Skin Start: 02/09/22 17:26 Freq: Status: Active Protocol: Document 02/13/22 13:04 LRN (Rec: 02/13/22 15:04 LRN [id number]) Posture Evaluation Position Standing Head/C-Spine Posture Forward Head T-Spine Posture Increased Kyphosis Shoulder Posture (L) Elevated Pelvis Posture (L) Rotated Anterior,(R) Rotated Posterior,(R) Iliac Crest Superior Comments Posture Comments L leg in ER, pants left rotated. Sacrum is R rotated Palpation Assessment Location L hip Palpation Location TFL muscle & IT band, Piriformis Palpation Findings Tenderness R hip Palpation Location TFL muscle & IT band, Piriformis Palpation Findings Tenderness Back Palpation Location Across low back at sacral level Palpation Findings Tenderness PT-OP-K Range of Motion Start: 02/09/22 17:26 Freq: Status: Active Protocol: Document 02/13/22 13:04 LRN (Rec: 02/13/22 15:04 LRN [id number]) Lumbar Spine Range of Motion Lumbar Spine Active Degrees Testing Position Standing Flexion 75 Extension 11 Lateral Flexion Left 6 Lateral Flexion Right 13 ROM Limitations Pain Comments Flexion is with 38 deg's hip flexion Extension is with 5 deg's hip extension (with bilateral hamstring pain) Hip Goniometric Range of Motion Hip Right Passive Testing Position Supine Straight Leg Raise 55 Internal Rotation 20 External Rotation 50 Left Passive Testing Position Supine Straight Leg Raise 55 Internal Rotation 10 External Rotation 50 PT-OP-L Special Tests Start: 02/09/22 17:26 Freq: Status: Active Protocol: Document 02/13/22 13:04 LRN (Rec: 02/13/22 15:04 LRN [id number]) Special Tests Lumbar Spine Special Tests Straight Leg Raise Test Results + bilaterally Comments SLR is 55 deg's with hamstring /lower leg pain Hip Special Tests Piriformis Comments Pt did not tolerate test position. PT-OP-M Strength Start: 02/09/22 17:26 Freq: Status: Active Protocol: Document 02/13/22 13:04 LRN (Rec: 02/13/22 15:04 LRN [id number]) Trunk Strength Trunk Manual Muscle Testing Testing Position Supine Core Stabilization Pt was not able to maintain core stability with resistance given to LE's. Hip Strength Hip Manual Muscle Testing Right Comments Pt had difficulty coming to full stance with sit<>stand due to knee pain. Left Comments Pt had difficulty coming to full stance with sit<>stand due to knee pain. PT-OP-Q Treatments Start: 02/09/22 17:26 Freq: Status: Active Protocol: Document 04/02/22 13:01 SP (Rec: 04/02/22 14:03 SP [id number]) Cardio Equipment Bicycle (Upright) Duration (Minutes) 8 Resistance 7 Seat Position 6 Other 53 RPMs, cued TA for stable upper trunk, better demo Therapeutic Exercises Sitting Exercises HS stretch & neural glide Sitting Exercise Name reviewed seated Side bilateral Reps/Minutes 2x5 reps Comments good form, less tingling in feet and stiffness ankle with reps Sit<>Stand Sitting Exercise Name mechanics of hip hinge asc/ desc then for HEP Equipment Used hands on lap, mesh chair Reps/Minutes 3x5 reps Comments extra time spent hip hinge concept and slow descent (nxt arms across chest) Standing Exercises wall posture roll ups Standing Exercise Name initiated in PT for postural awareness, check if good for HEP awareness Reps/Minutes x3 reps Comments suggested can pelvic segmental roll up w/TA & postural aware , soft knees self STMs Standing Exercise Name B quad, ITB, HS, calf seated rolling pin- reviewed HEP Resistance HEP review Equipment Used racquetball LB, glut on wall Reps/Minutes rolling over musculature Comments good feedback response, cued feet staggered allow rayshawn pressure adjust Self-Care/Home Management Treatment Education Patient Education Home Exercise Program Other Education Ed for mechanics of neural glide and benefits performed in sitting today, anatomy for awareness for gently rolling pin to lower legs, and initiated wall posture roll ups to assist awareness of posture when moving, maybe add to HEP future tx. PT-OP-T Assessment and Plan Start: 02/09/22 17:26 Freq: Status: Active Protocol: Document 04/02/22 13:01 SP (Rec: 04/02/22 14:03 SP [id number]) Physical Therapy Assessment Goals Four Impairment Bilateral thigh pain Impairment Thigh pain 5-6/10 with occasional 8-9 shooting pain. LEFS is 44 with one question unanswered (40-59% impaired with score 32-47) Short Term Goal (STG) Decrease thigh pain to 2-3/10, with pt able to ambulate with a stable gait and greater ease. 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 04/02/22: Still gets thigh pain when stands for a bit, finds if wt shifts better. STG Duration 04/01/22 (04/02/22 progressing) Casting Molder Goal (LTG) Improve function per LEFS score 48-62 (20-39% impaired) LTG Duration 05/14/22 Three Impairment Difficulty falling asleep at night Short Term Goal (STG) Pt able to tolerate lying on her sides for short periods of time without severe pain. STG Duration 04/01/22 Correction Goal (LTG) Decrease amount of bilateral hip pain when lying down at night with pt able to go to sleep with ease. LTG Duration 05/14/22 Two Impairment Pain limiting walking Impairment Pain limiting walking to 15-20 minutes before needing to stop and stretch due to pain. Short Term Goal (STG) Pt will be able to SLS 10 secs or greater for improved balance. STG Duration 04/01/22 Correction Goal (LTG) Decrease LBP with walking to tolerated 30 minutes or more walking for exercise on level surface. LTG Duration 05/14/22 One Impairment Pt is not consistent on a HEP Short Term Goal (STG) Pt will be educated in self care pain management with use of modalities and proper body mechanics for ADLs and transfers. (02/15/22: Pt educated in proper sup>sit>stand with log roll method & discussed proper body mechanics for picking up objects) (03/01/22: Pt educated in proper body mechanics for ADLs and transfers, and handouts issued). 03/22/22: reviewed seated PF stretch and self STMs to allow relief to walk. STG Duration 04/01/22 (03/29/22: MET GOAL) Casting Molder Goal (LTG) Independent and consistent with a final self care HEP of back and hip ex's. (02/27/22: HEP issued of hip stretches: fig 4, lateral hip, piriformis). (03/01/22: HEP issued hip flexor stretch). 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 (03/29/22: HEP issued of Hamstring/LE neural stretch) LTG Duration 05/14/22 (03/29/22: Progressed ) Assessment Summary Assessment Pt stated has a recumbent bike at home and maybe can try it and focus on core while still using LEs, good response in tx. Good feedback self STMs and stretching. No pain STS for HEP today. Physical Therapy Plan Frequency and Duration Frequency of Treatment 2x/Week Plan of Care Start Date 02/13/22 Plan of Care End Date 05/14/22 Therapeutic Interventions Therapeutic Interventions Gait Training,Home Exercise Program,Joint Mobilizations, Manual Therapy,Neuromuscular Re-education,Patient/Caregiver Education,Self-Care/Home Management,Soft Tissue Mobilization,Therapeutic Activities,Therapeutic Exercises Modalities Cold Pack/Ice Massage,Electric Stimulation,Hot Packs, Ultrasound Next Visit Focus/Plan Next Note Type Treatment Note Next Visit Plan Assess goals 3. Initiate walking & balance training. Continue progress HEP: hip abd & Core stab: stand shld ext, band walk, hurdles, dynamic gait. Manual: IT Band and trunk rotator stretching. Modailities: US, treat bilateral Bursitis (?sciatic pain). Ther Ex: Core stabilization, monitor for normalized hip mobility, aerobic conditioning for walking and core stab.
--- NOTE | 2022-04-06 15:18 | PT.OTN ---
Current Diagnoses Pain in unspecified hip (04/06/22) Dorsalgia, unspecified (04/06/22) Muscle weakness (generalized) (04/06/22) Other abnormalities of gait and mobility (04/06/22) Physical Therapy Treatment Note PT-OP-A Visit Information Start: 02/09/22 17:26 Freq: Status: Active Protocol: Document 04/06/22 14:35 SP (Rec: 04/06/22 15:44 SP [id number]) Out-Patient Physical Therapy Visit Information Visit Information Visit Type Treatment Note Visit Start Time 14:35 Visit Stop Time 15:18 Total Visit Minutes 43 Visit Number 12 Number of [place] Visits 2 Evaluation Information Evaluation Date 02/13/22 Precautions Precautions Type 2 Diabetes mellitus, blood sugar levels unstable, fractured L ankle with isabel in tibia, with plates and screws at L ankle. Record review indicates: Seizure disorder~ 2008, skin cancer ~2013, Obesity 02/08/22 (BMI 30.0-34.9 ) PT-OP-B Current Condition Start: 02/09/22 17:26 Freq: Status: Active Protocol: Document 02/13/22 13:04 LRN (Rec: 02/13/22 15:04 LRN [id number]) Current Condition History of Current Condition Onset Date 09/2020. Problem with walking in 2019. Current Complaints Lower back and bursitis pain, sometime legs give out due to pain, ache. History of Current Condition Has had lower back pain and bilateral bursitis since 2019. Has had bursitis one or two times in the past. Pt doesn't think about her pain and has difficulty identifying her pain intensity. She has tight IT Bands with tenderness noted. Her L leg aches sometimes and with sit to stand sometimes the leg gives out. She sometimes takes IBP. Has been having pains in the buttocks that her spouse thinks is her sciatic nerve. Has midback pain 40-50% of the time. Can't do housework for > 1/2 hr. Leg length dicrepancy with L leg 1 shorter than the R. Lift in L shoe put in 2019 by poultry offal worker. Prior Treatments and Tests P.T. at [facility] from winter to winter but discontinued due to Covid fears. P.T. with Joesph Dias in Nov 2021, for 1-1.5 months, but was getting an emotional trigger and couldn't continue; therefore wants a female therapist. She states her pain did lessen overall some. She wasn't always consistent with her exercises. X-rays of L/S: Grade 1 L4-L5 degenerative spondylolisthesis , Multilevel degenerative disease, Multilevel facet arthropathy. Developmental History Developmental History Tailbone injury at 18 yo. Treatment Goals Patient/Caregiver Goals Pt goal: Exercise to reduce pain so that it doesn't interrupt her while she walks (Walking 10-15' LB becomes so tight that she needs to stretch out her low back), month ago pain in legs started and would like it to go away, eliminate balance problems. Prior Functional Status Baseline Function- ADL's Independent Baseline Function- Mobility Independent Baseline Function- Gait Before 2019 didn't notice back being a hinderance with hiking, walking. Baseline Function- Other Able to bend down and pick things up without thinking or hesitation 2 yrs ago. Current Functional Impairments (Reported) Functional Limitations- ADL's Must bend down slowly to pick things up. Functional Limitations- Mobility/Gait Brisk walk for only 15-20' Personal Factors Other Personal Factors That May Effect Records indicate an eating Therapy/Recovery disorder, obesity (not morbid) with BMI 32.5. Intake form indicates seizures 2009, arthritis, diabetes II, thyroid disorder. PT-OP-C Subjective Start: 02/09/22 17:26 Freq: Status: Active Protocol: Document 04/06/22 14:35 SP (Rec: 04/06/22 15:44 SP [id number]) OP-PT Subjective Patient Comments Patient Comments Pt reports overall pain into leg has stopped but having more R>L posterolateral hip jt soreness into WB and tight, not able to walk as far now noticing. She reports not doing stretching exercises 3x/ day as instructed but trying to do 1x/day and only 2x since last tx. PT-OP-D Balance Start: 02/09/22 17:26 Freq: Status: Active Protocol: Document 02/13/22 13:04 LRN (Rec: 02/13/22 15:04 LRN [id number]) Balance Tests Single Limb Standing Single Limb- Right 3 secs, without shoes Single Limb- Left 3 secs, without shoes PT-OP-H Neuro Start: 02/09/22 17:26 Freq: Status: Active Protocol: Document 02/13/22 13:04 LRN (Rec: 02/13/22 15:04 LRN [id number]) Sensation Evaluation Gross Sensation Gross Sensation WNL PT-OP-J Posture/Palpation/Skin Start: 02/09/22 17:26 Freq: Status: Active Protocol: Document 02/13/22 13:04 LRN (Rec: 02/13/22 15:04 LRN [id number]) Posture Evaluation Position Standing Head/C-Spine Posture Forward Head T-Spine Posture Increased Kyphosis Shoulder Posture (L) Elevated Pelvis Posture (L) Rotated Anterior,(R) Rotated Posterior,(R) Iliac Crest Superior Comments Posture Comments L leg in ER, pants left rotated. Sacrum is R rotated Palpation Assessment Location L hip Palpation Location TFL muscle & IT band, Piriformis Palpation Findings Tenderness R hip Palpation Location TFL muscle & IT band, Piriformis Palpation Findings Tenderness Back Palpation Location Across low back at sacral level Palpation Findings Tenderness PT-OP-K Range of Motion Start: 02/09/22 17:26 Freq: Status: Active Protocol: Document 02/13/22 13:04 LRN (Rec: 02/13/22 15:04 LRN [id number]) Lumbar Spine Range of Motion Lumbar Spine Active Degrees Testing Position Standing Flexion 75 Extension 11 Lateral Flexion Left 6 Lateral Flexion Right 13 ROM Limitations Pain Comments Flexion is with 38 deg's hip flexion Extension is with 5 deg's hip extension (with bilateral hamstring pain) Hip Goniometric Range of Motion Hip Right Passive Testing Position Supine Straight Leg Raise 55 Internal Rotation 20 External Rotation 50 Left Passive Testing Position Supine Straight Leg Raise 55 Internal Rotation 10 External Rotation 50 PT-OP-L Special Tests Start: 02/09/22 17:26 Freq: Status: Active Protocol: Document 02/13/22 13:04 LRN (Rec: 02/13/22 15:04 LRN [id number]) Special Tests Lumbar Spine Special Tests Straight Leg Raise Test Results + bilaterally Comments SLR is 55 deg's with hamstring /lower leg pain Hip Special Tests Piriformis Comments Pt did not tolerate test position. PT-OP-M Strength Start: 02/09/22 17:26 Freq: Status: Active Protocol: Document 02/13/22 13:04 LRN (Rec: 02/13/22 15:04 LRN [id number]) Trunk Strength Trunk Manual Muscle Testing Testing Position Supine Core Stabilization Pt was not able to maintain core stability with resistance given to LE's. Hip Strength Hip Manual Muscle Testing Right Comments Pt had difficulty coming to full stance with sit<>stand due to knee pain. Left Comments Pt had difficulty coming to full stance with sit<>stand due to knee pain. PT-OP-Q Treatments Start: 02/09/22 17:26 Freq: Status: Active Protocol: Document 04/06/22 14:35 SP (Rec: 04/06/22 15:44 SP [id number]) Therapeutic Exercises Supine Exercises hip abd Supine Exercise Name added toHEP Side bilateral Resistance AROM Equipment Used oppos LE bent Reps/Minutes x5 painfree range Comments good response,cued neutral pelvis Hamstring/LE neural stretch Supine Exercise Name Hamstring/LE neural stretch Side bilateral Equipment Used towel behind thigh, lower leg lift and AP Reps/Minutes x10 AP: DF to PF and IV to glide tibial nerve/muscles- good response Comments pain free- took away pain posterior thigh TA/BKFO Supine Exercise Name TA/BKFO- single LE at time- reviewed HEP Side bilateral Resistance AROM> TB #1 loop Reps/Minutes 2x5 reps Comments cuing for stablilzation of pelvis TA Tightening Supine Exercise Name TA tightening - drawing in, w/ hong,hong & w/cough Reps/Minutes 5s x5 Comments Cuing to draw stomach in and as laughing/coughing Sitting Exercises Sit<>Stand Sitting Exercise Name mechanics of hip hinge asc/ desc then for HEP Resistance Ed to perform at home Equipment Used mesh chair Reps/Minutes x5 reps Comments cued hip hinge and slow descent- arms front Sit<>Supine Sitting Exercise Name Transfer training Side bilateral Reps/Minutes 5'' Comments good form log roll and UE support Standing Exercises band walk Standing Exercise Name assessment for LE strengthening for HEP: hold for HEP- assess further tx Resistance Y TB (at thighs and below knees) Reps/Minutes 10 ft x2 laps Comments noted same WB jt pain 2-3/10 no worse with side stepping self STMs Standing Exercise Name B quad, ITB, HS, calf seated rolling pin- Resistance discuss review as HEP- not performed Equipment Used racquetball LB, glut on wall Reps/Minutes rolling over glut med and piriformis Comments cued feet staggered allow rayshawn pressure adjust Manual Therapy Treatment Soft Tissue Mobilization L hip Body Location Piriformis, glut med Mobilization Type Myofascial Release,Strumming, Trigger Point Release Intensity/Depth Moderate Body Position Prone Comments Manual and education self application of ball on wall stated hasn't tried yet after shown. R hip Body Location piriformis, glut med Mobilization Type Myofascial Release,Strumming, Trigger Point Release Intensity/Depth Moderate Body Position Prone Comments Manual and education self application of ball on wall stated hasn't tried yet after shown. Self-Care/Home Management Treatment Education Patient Education Home Exercise Program Other Education Extra time spent on carryover stretching as instructed and self STMs applied today at home to give relief as did end tx. Added supine hip abd & resisted clamshell. PT-OP-T Assessment and Plan Start: 02/09/22 17:26 Freq: Status: Active Protocol: Document 04/06/22 14:35 SP (Rec: 04/06/22 15:44 SP [id number]) Physical Therapy Assessment Goals Four Impairment Bilateral thigh pain Impairment Thigh pain 5-6/10 with occasional 8-9 shooting pain. LEFS is 44 with one question unanswered (40-59% impaired with score 32-47) Short Term Goal (STG) Decrease thigh pain to 2-3/10, with pt able to ambulate with a stable gait and greater ease. 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 04/02/22: Still gets thigh pain when stands for a bit, finds if wt shifts better. 04/06/22: States leg pain gone but having R>L hip jt pain into WB 2-10. STG Duration 04/01/22 (04/06/22 progressing) Group Home Goal (LTG) Improve function per LEFS score 48-62 (20-39% impaired) LTG Duration 05/14/22 Three Impairment Difficulty falling asleep at night Short Term Goal (STG) Pt able to tolerate lying on her sides for short periods of time without severe pain. STG Duration 04/01/22 Hostage Negotiator Goal (LTG) Decrease amount of bilateral hip pain when lying down at night with pt able to go to sleep with ease. LTG Duration 05/14/22 Two Impairment Pain limiting walking Impairment Pain limiting walking to 15-20 minutes before needing to stop and stretch due to pain. Short Term Goal (STG) Pt will be able to SLS 10 secs or greater for improved balance. STG Duration 04/01/22 Hostage Negotiator Goal (LTG) Decrease LBP with walking to tolerated 30 minutes or more walking for exercise on level surface. LTG Duration 05/14/22 One Impairment Pt is not consistent on a HEP Short Term Goal (STG) Pt will be educated in self care pain management with use of modalities and proper body mechanics for ADLs and transfers. (02/15/22: Pt educated in proper sup>sit>stand with log roll method & discussed proper body mechanics for picking up objects) (03/01/22: Pt educated in proper body mechanics for ADLs and transfers, and handouts issued). 03/22/22: reviewed seated PF stretch and self STMs to allow relief to walk. STG Duration 04/01/22 (03/29/22: MET GOAL) Hostage Negotiator Goal (LTG) Independent and consistent with a final self care HEP of back and hip ex's. (02/27/22: HEP issued of hip stretches: fig 4, lateral hip, piriformis). (03/01/22: HEP issued hip flexor stretch). 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 (03/29/22: HEP issued of Hamstring/LE neural stretch) 04/06/22: added supine hip abd, supine resisted clamshell for hip abd strengthening LTG Duration 05/14/22 (04/06/22: Progressed) Assessment Summary Assessment Pt responded well to manual end tx for almost no pain over hip abd/ ERs initial walk but after walked 80 ft or so stated B hip jt pain R>L starting to come back 3-ish. Extra time spent self application of STMs instructed , applying stretching and newly added hip abd against light resistance that didn't give adverse affects in PT to progress jt stability carryover at home. Pt verbalized understanding will incorporate at home. Physical Therapy Plan Frequency and Duration Frequency of Treatment 2x/Week Plan of Care Start Date 02/13/22 Plan of Care End Date 05/14/22 Therapeutic Interventions Therapeutic Interventions Gait Training,Home Exercise Program,Joint Mobilizations, Manual Therapy,Neuromuscular Re-education,Patient/Caregiver Education,Self-Care/Home Management,Soft Tissue Mobilization,Therapeutic Activities,Therapeutic Exercises Modalities Cold Pack/Ice Massage,Electric Stimulation,Hot Packs, Ultrasound Next Visit Focus/Plan Next Note Type Treatment Note Next Visit Plan Recheck supine hip abd & supine resisted clamshell. Assess goals 3. Initiate walking & balance training. Continue progress HEP: hip abd & Core stab: stand shld ext, band walk, hurdles, dynamic gait. Manual: IT Band and trunk rotator stretching. Modailities: US, treat bilateral Bursitis (?sciatic pain). Ther Ex: Core stabilization, monitor for normalized hip mobility, aerobic conditioning for walking and core stab.
--- NOTE | 2022-04-17 13:49 | PT.OTN ---
Current Diagnoses Pain in unspecified hip (04/17/22) Dorsalgia, unspecified (04/17/22) Muscle weakness (generalized) (04/17/22) Other abnormalities of gait and mobility (04/17/22) Physical Therapy Treatment Note PT-OP-A Visit Information Start: 02/09/22 17:26 Freq: Status: Active Protocol: Document 04/17/22 13:12 LRN (Rec: 04/17/22 13:48 LRN [id number]) Out-Patient Physical Therapy Visit Information Visit Information Visit Type Treatment Note Visit Note 01/04 Visit Start Time 13:12 Visit Stop Time 13:43 Total Visit Minutes 31 Visit Number 13 Evaluation Information Evaluation Date 02/13/22 Precautions Precautions Type 2 Diabetes mellitus, blood sugar levels unstable, fractured L ankle with isabel in tibia, with plates and screws at L ankle. Record review indicates: Seizure disorder~ 2008, skin cancer ~2013, Obesity 02/08/22 (BMI 30.0-34.9 ) PT-OP-B Current Condition Start: 02/09/22 17:26 Freq: Status: Active Protocol: Document 02/13/22 13:04 LRN (Rec: 02/13/22 15:04 LRN [id number]) Current Condition History of Current Condition Onset Date 09/2020. Problem with walking in 2019. Current Complaints Lower back and bursitis pain, sometime legs give out due to pain, ache. History of Current Condition Has had lower back pain and bilateral bursitis since 2019. Has had bursitis one or two times in the past. Pt doesn't think about her pain and has difficulty identifying her pain intensity. She has tight IT Bands with tenderness noted. Her L leg aches sometimes and with sit to stand sometimes the leg gives out. She sometimes takes IBP. Has been having pains in the buttocks that her spouse thinks is her sciatic nerve. Has midback pain 40-50% of the time. Can't do housework for > 1/2 hr. Leg length dicrepancy with L leg 1 shorter than the R. Lift in L shoe put in 2019 by dough molder. Prior Treatments and Tests P.T. at [facility] from winter to winter but discontinued due to Covid fears. P.T. with Joesph Dias in Nov 2021, for 1-1.5 months, but was getting an emotional trigger and couldn't continue; therefore wants a female therapist. She states her pain did lessen overall some. She wasn't always consistent with her exercises. X-rays of L/S: Grade 1 L4-L5 degenerative spondylolisthesis , Multilevel degenerative disease, Multilevel facet arthropathy. Developmental History Developmental History Tailbone injury at 18 yo. Treatment Goals Patient/Caregiver Goals Pt goal: Exercise to reduce pain so that it doesn't interrupt her while she walks (Walking 10-15' LB becomes so tight that she needs to stretch out her low back), month ago pain in legs started and would like it to go away, eliminate balance problems. Prior Functional Status Baseline Function- ADL's Independent Baseline Function- Mobility Independent Baseline Function- Gait Before 2018 didn't notice back being a hinderance with hiking, walking. Baseline Function- Other Able to bend down and pick things up without thinking or hesitation 2 yrs ago. Current Functional Impairments (Reported) Functional Limitations- ADL's Must bend down slowly to pick things up. Functional Limitations- Mobility/Gait Brisk walk for only 15-20' Personal Factors Other Personal Factors That May Effect Records indicate an eating Therapy/Recovery disorder, obesity (not morbid) with BMI 32.5. Intake form indicates seizures 2009, arthritis, diabetes II, thyroid disorder. PT-OP-C Subjective Start: 02/09/22 17:26 Freq: Status: Active Protocol: Document 04/17/22 13:12 LRN (Rec: 04/17/22 13:48 LRN [id number]) OP-PT Subjective Patient Comments Patient Comments States she stopped her diabetes medication and her random shooting pains in the legs stopped and not as much fatigue. Standing for a long time she had tightening across her low back so she sat and did a sitting Piriformis stretch and stopped the low back from tightening up. The same tightening occurs with 10 ' of walking. She is feeling fatigued and she is moving slowly. Yesterday felt fatigued and might have been due to depression. Sometimes has pain int shyam hips and in calfs that is different then when therapy started. She c/o soreness in the lateral thighs with palpation. PT-OP-D Balance Start: 02/09/22 17:26 Freq: Status: Active Protocol: Document 02/13/22 13:04 LRN (Rec: 02/13/22 15:04 LRN [id number]) Balance Tests Single Limb Standing Single Limb- Right 3 secs, without shoes Single Limb- Left 3 secs, without shoes PT-OP-H Neuro Start: 02/09/22 17:26 Freq: Status: Active Protocol: Document 02/13/22 13:04 LRN (Rec: 02/13/22 15:04 LRN [id number]) Sensation Evaluation Gross Sensation Gross Sensation WNL PT-OP-J Posture/Palpation/Skin Start: 02/09/22 17:26 Freq: Status: Active Protocol: Document 02/13/22 13:04 LRN (Rec: 02/13/22 15:04 LRN [id number]) Posture Evaluation Position Standing Head/C-Spine Posture Forward Head T-Spine Posture Increased Kyphosis Shoulder Posture (L) Elevated Pelvis Posture (L) Rotated Anterior,(R) Rotated Posterior,(R) Iliac Crest Superior Comments Posture Comments L leg in ER, pants left rotated. Sacrum is R rotated Palpation Assessment Location L hip Palpation Location TFL muscle & IT band, Piriformis Palpation Findings Tenderness R hip Palpation Location TFL muscle & IT band, Piriformis Palpation Findings Tenderness Back Palpation Location Across low back at sacral level Palpation Findings Tenderness PT-OP-K Range of Motion Start: 02/09/22 17:26 Freq: Status: Active Protocol: Document 02/13/22 13:04 LRN (Rec: 02/13/22 15:04 LRN [id number]) Lumbar Spine Range of Motion Lumbar Spine Active Degrees Testing Position Standing Flexion 75 Extension 11 Lateral Flexion Left 6 Lateral Flexion Right 13 ROM Limitations Pain Comments Flexion is with 38 deg's hip flexion Extension is with 5 deg's hip extension (with bilateral hamstring pain) Hip Goniometric Range of Motion Hip Right Passive Testing Position Supine Straight Leg Raise 55 Internal Rotation 20 External Rotation 50 Left Passive Testing Position Supine Straight Leg Raise 55 Internal Rotation 10 External Rotation 50 PT-OP-L Special Tests Start: 02/09/22 17:26 Freq: Status: Active Protocol: Document 02/13/22 13:04 LRN (Rec: 02/13/22 15:04 LRN [id number]) Special Tests Lumbar Spine Special Tests Straight Leg Raise Test Results + bilaterally Comments SLR is 55 deg's with hamstring /lower leg pain Hip Special Tests Piriformis Comments Pt did not tolerate test position. PT-OP-M Strength Start: 02/09/22 17:26 Freq: Status: Active Protocol: Document 02/13/22 13:04 LRN (Rec: 02/13/22 15:04 LRN [id number]) Trunk Strength Trunk Manual Muscle Testing Testing Position Supine Core Stabilization Pt was not able to maintain core stability with resistance given to LE's. Hip Strength Hip Manual Muscle Testing Right Comments Pt had difficulty coming to full stance with sit<>stand due to knee pain. Left Comments Pt had difficulty coming to full stance with sit<>stand due to knee pain. PT-OP-Q Treatments Start: 02/09/22 17:26 Freq: Status: Active Protocol: Document 04/17/22 13:12 LRN (Rec: 04/17/22 13:48 LRN [id number]) Therapeutic Exercises Supine Exercises LTR Supine Exercise Name LTR stretch Side bilateral Reps/Minutes 2' hip abd Supine Exercise Name Active Shyam Hip AB Side bilateral Reps/Minutes 15x 2 Comments Cued neutral pelvis and toes towards ceiling or inward TA/BKFO Supine Exercise Name TA/BKFO- single and bilateral LE at time Side bilateral Resistance AROM> TB #1 loop Reps/Minutes Shyam: 15x2 reps; Single: 15x Comments cuing for stablilzation of pelvis PT-OP-T Assessment and Plan Start: 02/09/22 17:26 Freq: Status: Active Protocol: Document 04/17/22 13:12 LRN (Rec: 04/17/22 13:48 LRN [id number]) Physical Therapy Assessment Goals Four Impairment Bilateral thigh pain Impairment Thigh pain 5-6/10 with occasional 8-9 shooting pain. LEFS is 44 with one question unanswered (40-59% impaired with score 32-47) Short Term Goal (STG) Decrease thigh pain to 2-3/10, with pt able to ambulate with a stable gait and greater ease. 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 04/02/22: Still gets thigh pain when stands for a bit, finds if wt shifts better. 04/06/22: States leg pain gone but having R>L hip jt pain into WB 2-4/10. (04/17/22: Shooting pain resolved with change in diabetic medications; thigh, calf, knee pains are rated 3-6 /10). STG Duration 04/01/22 (04/06/22 progressing) [employer] Goal (LTG) Improve function per LEFS score 48-62 (20-39% impaired) LTG Duration 05/14/22 Three Impairment Difficulty falling asleep at night Short Term Goal (STG) Pt able to tolerate lying on her sides for short periods of time without severe pain. (04/17/22: Able to sleep on sides up to 5 hrs-waking due to bladder). STG Duration 04/01/22 (04/17/22: MET GOAL) [employer] Goal (LTG) Decrease amount of bilateral hip pain when lying down at night with pt able to go to sleep with ease. (04/17/22: Pt able to fall to sleep without reference to pain, difficulty falling to sleep because of active mind). LTG Duration 05/14/22 (04/17/22: MET GOAL) Two Impairment Pain limiting walking Impairment Pain limiting walking to 15-20 minutes before needing to stop and stretch due to pain. Short Term Goal (STG) Pt will be able to SLS 10 secs or greater for improved balance. (04/17/22: SLS: 23 secs right, 9 secs left; NOTE: Steel isabel and plate in L ankle/lower leg ) STG Duration 04/01/22 (04/17/22: SLS: LL- Improving; RLE-MET GOAL) Assisted Goal (LTG) Decrease LBP with walking to tolerated 30 minutes or more walking for exercise on level surface. (04/17/22: LBP is rated 0-7 with walking > 10-15 minutes) LTG Duration 05/14/22 (04/17/22: No change ) One Impairment Pt is not consistent on a HEP Short Term Goal (STG) Pt will be educated in self care pain management with use of modalities and proper body mechanics for ADLs and transfers. (02/15/22: Pt educated in proper sup>sit>stand with log roll method & discussed proper body mechanics for picking up objects) (03/01/22: Pt educated in proper body mechanics for ADLs and transfers, and handouts issued). 03/22/22: reviewed seated PF stretch and self STMs to allow relief to walk. STG Duration 04/01/22 (03/29/22: MET GOAL) [employer] Goal (LTG) Independent and consistent with a final self care HEP of back and hip ex's. (02/27/22: HEP issued of hip stretches: fig 4, lateral hip, piriformis). (03/01/22: HEP issued hip flexor stretch). 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 (03/29/22: HEP issued of Hamstring/LE neural stretch) 04/06/22: added supine hip abd, supine resisted clamshell for hip abd strengthening LTG Duration 05/14/22 (04/06/22: Progressed) Assessment Summary Assessment Tightness of inner thighs with active Hip AB; therfore inner thighs tight. Good tolerance to resisted Clamshell in supine. Pt L ankle/knee weakness may be cause of poor L SLS and onset of hip pain with gait; therefore need to strengthen L ankle/knee. Pt is not consistent with her HEP . Physical Therapy Plan Frequency and Duration Frequency of Treatment 2x/Week Plan of Care Start Date 02/13/22 Plan of Care End Date 05/14/22 Next Visit Focus/Plan Next Note Type Treatment Note Next Visit Plan Add Left ankle and knee strengthening to improve SLS and tolerance to walking. Initiate walking & balance training. Continue progress HEP: hip abd & Core stab: stand shld ext, band walk, hurdles, dynamic gait. Manual: IT Band and trunk rotator stretching. Modailities: US, treat bilateral Bursitis (?sciatic pain). Ther Ex: Core stabilization, monitor for normalized hip mobility, aerobic conditioning for walking and core stab.
--- NOTE | 2022-04-19 16:39 | PT.OTN ---
Current Diagnoses Pain in unspecified hip (04/19/22) Dorsalgia, unspecified (04/19/22) Muscle weakness (generalized) (04/19/22) Other abnormalities of gait and mobility (04/19/22) Physical Therapy Treatment Note PT-OP-A Visit Information Start: 02/09/22 17:26 Freq: Status: Active Protocol: Document 04/19/22 15:23 LRN (Rec: 04/19/22 16:38 LRN [id number]) Out-Patient Physical Therapy Visit Information Visit Information Visit Type Treatment Note Visit Note 02/04 Visit Start Time 15:23 Visit Stop Time 16:03 Total Visit Minutes 40 Visit Number 14 Evaluation Information Evaluation Date 02/13/22 Precautions Precautions Type 2 Diabetes mellitus, blood sugar levels unstable, fractured L ankle with isabel in tibia, with plates and screws at L ankle. Record review indicates: Seizure disorder~ 2008, skin cancer ~2013, Obesity 02/08/22 (BMI 30.0-34.9 ) PT-OP-B Current Condition Start: 02/09/22 17:26 Freq: Status: Active Protocol: Document 02/13/22 13:04 LRN (Rec: 02/13/22 15:04 LRN [id number]) Current Condition History of Current Condition Onset Date 09/2020. Problem with walking in 2019. Current Complaints Lower back and bursitis pain, sometime legs give out due to pain, ache. History of Current Condition Has had lower back pain and bilateral bursitis since 2019. Has had bursitis one or two times in the past. Pt doesn't think about her pain and has difficulty identifying her pain intensity. She has tight IT Bands with tenderness noted. Her L leg aches sometimes and with sit to stand sometimes the leg gives out. She sometimes takes IBP. Has been having pains in the buttocks that her spouse thinks is her sciatic nerve. Has midback pain 40-50% of the time. Can't do housework for > 1/2 hr. Leg length dicrepancy with L leg 1 shorter than the R. Lift in L shoe put in 2019 by cargo handler. Prior Treatments and Tests P.T. at [facility] from winter to winter but discontinued due to Covid fears. P.T. with Joesph Dias in Nov 2021, for 1-1.5 months, but was getting an emotional trigger and couldn't continue; therefore wants a female therapist. She states her pain did lessen overall some. She wasn't always consistent with her exercises. X-rays of L/S: Grade 1 L4-L5 degenerative spondylolisthesis , Multilevel degenerative disease, Multilevel facet arthropathy. Developmental History Developmental History Tailbone injury at 18 yo. Treatment Goals Patient/Caregiver Goals Pt goal: Exercise to reduce pain so that it doesn't interrupt her while she walks (Walking 10-15' LB becomes so tight that she needs to stretch out her low back), month ago pain in legs started and would like it to go away, eliminate balance problems. Prior Functional Status Baseline Function- ADL's Independent Baseline Function- Mobility Independent Baseline Function- Gait Before 2018 didn't notice back being a hinderance with hiking, walking. Baseline Function- Other Able to bend down and pick things up without thinking or hesitation 2 yrs ago. Current Functional Impairments (Reported) Functional Limitations- ADL's Must bend down slowly to pick things up. Functional Limitations- Mobility/Gait Brisk walk for only 15-20' Personal Factors Other Personal Factors That May Effect Records indicate an eating Therapy/Recovery disorder, obesity (not morbid) with BMI 32.5. Intake form indicates seizures 2009, arthritis, diabetes II, thyroid disorder. PT-OP-C Subjective Start: 02/09/22 17:26 Freq: Status: Active Protocol: Document 04/19/22 15:23 LRN (Rec: 04/19/22 16:38 LRN [id number]) OP-PT Subjective Patient Comments Patient Comments Pain not bad in back, little pain when sitting down. Back pain intermittent. PT-OP-D Balance Start: 02/09/22 17:26 Freq: Status: Active Protocol: Document 02/13/22 13:04 LRN (Rec: 02/13/22 15:04 LRN [id number]) Balance Tests Single Limb Standing Single Limb- Right 3 secs, without shoes Single Limb- Left 3 secs, without shoes PT-OP-H Neuro Start: 02/09/22 17:26 Freq: Status: Active Protocol: Document 02/13/22 13:04 LRN (Rec: 02/13/22 15:04 LRN [id number]) Sensation Evaluation Gross Sensation Gross Sensation WNL PT-OP-J Posture/Palpation/Skin Start: 02/09/22 17:26 Freq: Status: Active Protocol: Document 02/13/22 13:04 LRN (Rec: 02/13/22 15:04 LRN [id number]) Posture Evaluation Position Standing Head/C-Spine Posture Forward Head T-Spine Posture Increased Kyphosis Shoulder Posture (L) Elevated Pelvis Posture (L) Rotated Anterior,(R) Rotated Posterior,(R) Iliac Crest Superior Comments Posture Comments L leg in ER, pants left rotated. Sacrum is R rotated Palpation Assessment Location L hip Palpation Location TFL muscle & IT band, Piriformis Palpation Findings Tenderness R hip Palpation Location TFL muscle & IT band, Piriformis Palpation Findings Tenderness Back Palpation Location Across low back at sacral level Palpation Findings Tenderness PT-OP-K Range of Motion Start: 02/09/22 17:26 Freq: Status: Active Protocol: Document 02/13/22 13:04 LRN (Rec: 02/13/22 15:04 LRN [id number]) Lumbar Spine Range of Motion Lumbar Spine Active Degrees Testing Position Standing Flexion 75 Extension 11 Lateral Flexion Left 6 Lateral Flexion Right 13 ROM Limitations Pain Comments Flexion is with 38 deg's hip flexion Extension is with 5 deg's hip extension (with bilateral hamstring pain) Hip Goniometric Range of Motion Hip Right Passive Testing Position Supine Straight Leg Raise 55 Internal Rotation 20 External Rotation 50 Left Passive Testing Position Supine Straight Leg Raise 55 Internal Rotation 10 External Rotation 50 PT-OP-L Special Tests Start: 02/09/22 17:26 Freq: Status: Active Protocol: Document 02/13/22 13:04 LRN (Rec: 02/13/22 15:04 LRN [id number]) Special Tests Lumbar Spine Special Tests Straight Leg Raise Test Results + bilaterally Comments SLR is 55 deg's with hamstring /lower leg pain Hip Special Tests Piriformis Comments Pt did not tolerate test position. PT-OP-M Strength Start: 02/09/22 17:26 Freq: Status: Active Protocol: Document 02/13/22 13:04 LRN (Rec: 02/13/22 15:04 LRN [id number]) Trunk Strength Trunk Manual Muscle Testing Testing Position Supine Core Stabilization Pt was not able to maintain core stability with resistance given to LE's. Hip Strength Hip Manual Muscle Testing Right Comments Pt had difficulty coming to full stance with sit<>stand due to knee pain. Left Comments Pt had difficulty coming to full stance with sit<>stand due to knee pain. PT-OP-Q Treatments Start: 02/09/22 17:26 Freq: Status: Active Protocol: Document 04/19/22 15:23 LRN (Rec: 04/19/22 16:38 LRN [id number]) Therapeutic Exercises Sitting Exercises Knee strengthening Sitting Exercise Name Knee ext/flex Side bilateral Equipment Used Lev 2 TB Reps/Minutes 15x, 2-3 SH each leg Comments Cuing to hold ext for 3 secs. Ankle strengthening Sitting Exercise Name Ankle EV, IV, DF Side left Reps/Minutes 30x each Comments Much training and cuing to perform ex correctly. R knee pn with ankle EV Standing Exercises Ankle PF/DF Standing Exercise Name Ankle PF/DF strengthening Side bilateral Reps/Minutes 10x 3 Comments Rests needed to stretch out ankles. Manual Therapy Treatment Soft Tissue Mobilization R lower leg Body Location Medial to R Tibia Mobilization Type Strumming Intensity/Depth Superficial to Moderate Body Position Hooklying and Sitting Comments Legs on Bolster in Hooklying Self-Care/Home Management Treatment Education Patient Education Home Exercise Program Activities Self-Care/Home Management Activities Issued & reviewed HEP: Sitting: Ankle (EV/IV/PF) & knee (flex/ext) strengthening with Lev 2 TBand with TBand issued. Standing ankle PF/DF strengthening. Lev 2TBand issued. PT-OP-T Assessment and Plan Start: 02/09/22 17:26 Freq: Status: Active Protocol: Document 04/19/22 15:23 LRN (Rec: 04/19/22 16:38 [facility] [id number]) Physical Therapy Assessment Rehab Potential Rehabilitation Potential Good Evaluation Complexity Number of Personal Factors/Comorbidities 1-2 Number of Body Systems Impaired 4 or More Clinical Presentation at Evaluation Evolving Impairments Impairments Activity Tolerance,Balance, Gait,Pain,Posture,ROM,Soft Tissue Mobility,Strength Goals Four Impairment Bilateral thigh pain Impairment Thigh pain 5-6/10 with occasional 8-9 shooting pain. LEFS is 44 with one question unanswered (40-59% impaired with score 32-47) Short Term Goal (STG) Decrease thigh pain to 2-3/10, with pt able to ambulate with a stable gait and greater ease. 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 04/02/22: Still gets thigh pain when stands for a bit, finds if wt shifts better. 04/06/22: States leg pain gone but having R>L hip jt pain into WB 2-4/10. (04/17/22: Shooting pain resolved with change in diabetic medications; thigh, calf, knee pains are rated 3-6 /10). (04/19/22: Occasional back pain, little pain when sitting down). STG Duration 04/01/22 (04/06/22 progressing) [facility] Goal (LTG) Improve function per LEFS score 48-62 (20-39% impaired) LTG Duration 05/14/22 Two Impairment Pain limiting walking Impairment Pain limiting walking to 15-20 minutes before needing to stop and stretch due to pain. Short Term Goal (STG) Pt will be able to SLS 10 secs or greater for improved balance. (04/17/22: SLS: 23 secs right, 9 secs left; NOTE: Steel isabel and plate in L ankle/lower leg ) STG Duration 04/01/22 (04/17/22: SLS: LLE - Improving; RLE-MET GOAL) Director Of Transportation Goal (LTG) Decrease LBP with walking to tolerated 30 minutes or more walking for exercise on level surface. (04/17/22: LBP is rated 0-7 with walking > 10-15 minutes) LTG Duration 05/14/22 (04/17/22: No change ) One Impairment Pt is not consistent on a HEP Short Term Goal (STG) Pt will be educated in self care pain management with use of modalities and proper body mechanics for ADLs and transfers. (02/15/22: Pt educated in proper sup>sit>stand with log roll method & discussed proper body mechanics for picking up objects) (03/01/22: Pt educated in proper body mechanics for ADLs and transfers, and handouts issued). 03/22/22: reviewed seated PF stretch and self STMs to allow relief to walk. STG Duration 04/01/22 (03/29/22: MET GOAL) [facility] Goal (LTG) Independent and consistent with a final self care HEP of back and hip ex's. (02/27/22: HEP issued of hip stretches: fig 4, lateral hip, piriformis). (03/01/22: HEP issued hip flexor stretch). 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 (03/29/22: HEP issued of Hamstring/LE neural stretch) 04/06/22: added supine hip abd, supine resisted clamshell for hip abd strengthening) (04/19/22: HEP: Ankle and knee TB strengthening ex's) LTG Duration 05/14/22 (04/19/22: Progressed) Progress Towards Goals Progress Comments Progressed HEP. Assessment Summary Assessment Pt is making slow progress in improving her walking endurance and decreasing her pain with gait. Her thigh pains are much less, but may also be attributed to her change in diabetic medications . Her walking tolerance is slow to improve, but her balance and stability with single leg stance has improved on the right. She has been educated in proper body mechanics and is being progressed onto a comprehensive HEP. The pt will benefit from continued skilled physical therapy with focus on improving trunk and hip mobility, improving LE strength and balance, increasing walking endurance and completing the pt's HEP. Pt will be encouraged to be consistent with her HEP. Physical Therapy Plan Frequency and Duration Frequency of Treatment 2x/Week Plan of Care Start Date 02/13/22 Plan of Care End Date 06/18/22 Therapeutic Interventions Therapeutic Interventions Gait Training,Home Exercise Program,Joint Mobilizations, Manual Therapy,Neuromuscular Re-education,Patient/Caregiver Education,Self-Care/Home Management,Soft Tissue Mobilization,Therapeutic Activities,Therapeutic Exercises Modalities Cold Pack/Ice Massage,Electric Stimulation,Hot Packs, Ultrasound Next Visit Focus/Plan Next Note Type Treatment Note Next Visit Plan Review & reissue HEP: HEP issued of Hamstring/LE neural stretch. Assess response to STM of lower leg. Recheck Left ankle and knee strengthening HEP (to improve SLS and tolerance to walking). Add HEP: Stretch to Hip AD' s. Initiate walking & balance training. Continue progress HEP: hip abd & Core stab: stand shld ext, band walk, hurdles, dynamic gait. Manual: IT Band and trunk rotator stretching. Modailities: US, treat bilateral Bursitis (?sciatic pain). Ther Ex: Core stabilization, monitor for normalized hip mobility, aerobic conditioning for walking and core stab.
--- NOTE | 2022-04-24 17:22 | PT.OTN ---
Current Diagnoses Pain in unspecified hip (04/24/22) Dorsalgia, unspecified (04/24/22) Muscle weakness (generalized) (04/24/22) Other abnormalities of gait and mobility (04/24/22) Physical Therapy Treatment Note PT-OP-A Visit Information Start: 02/09/22 17:26 Freq: Status: Active Protocol: Document 04/24/22 13:04 LRN (Rec: 04/24/22 13:48 LRN [id number]) Out-Patient Physical Therapy Visit Information Visit Information Visit Type Treatment Note Visit Note 03/06 Visit Start Time 13:04 Visit Stop Time 13:42 Total Visit Minutes 38 Visit Number 15 Evaluation Information Evaluation Date 02/13/22 Precautions Precautions Type 2 Diabetes mellitus, blood sugar levels unstable, fractured L ankle with isabel in tibia, with plates and screws at L ankle. Record review indicates: Seizure disorder~ 2008, skin cancer ~2013, Obesity 02/08/22 (BMI 30.0-34.9 ) PT-OP-B Current Condition Start: 02/09/22 17:26 Freq: Status: Active Protocol: Document 02/13/22 13:04 LRN (Rec: 02/13/22 15:04 LRN [id number]) Current Condition History of Current Condition Onset Date 09/2020. Problem with walking in 2019. Current Complaints Lower back and bursitis pain, sometime legs give out due to pain, ache. History of Current Condition Has had lower back pain and bilateral bursitis since 2019. Has had bursitis one or two times in the past. Pt doesn't think about her pain and has difficulty identifying her pain intensity. She has tight IT Bands with tenderness noted. Her L leg aches sometimes and with sit to stand sometimes the leg gives out. She sometimes takes IBP. Has been having pains in the buttocks that her spouse thinks is her sciatic nerve. Has midback pain 40-50% of the time. Can't do housework for > 1/2 hr. Leg length dicrepancy with L leg 1 shorter than the R. Lift in L shoe put in 2019 by deicer inspector electric. Prior Treatments and Tests P.T. at [facility] from winter to winter but discontinued due to Covid fears. P.T. with Joesph Dias in Nov 2021, for 1-1.5 months, but was getting an emotional trigger and couldn't continue; therefore wants a female therapist. She states her pain did lessen overall some. She wasn't always consistent with her exercises. X-rays of L/S: Grade 1 L4-L5 degenerative spondylolisthesis , Multilevel degenerative disease, Multilevel facet arthropathy. Developmental History Developmental History Tailbone injury at 18 yo. Treatment Goals Patient/Caregiver Goals Pt goal: Exercise to reduce pain so that it doesn't interrupt her while she walks (Walking 10-15' LB becomes so tight that she needs to stretch out her low back), month ago pain in legs started and would like it to go away, eliminate balance problems. Prior Functional Status Baseline Function- ADL's Independent Baseline Function- Mobility Independent Baseline Function- Gait Before 2018 didn't notice back being a hinderance with hiking, walking. Baseline Function- Other Able to bend down and pick things up without thinking or hesitation 2 yrs ago. Current Functional Impairments (Reported) Functional Limitations- ADL's Must bend down slowly to pick things up. Functional Limitations- Mobility/Gait Brisk walk for only 15-20' Personal Factors Other Personal Factors That May Effect Records indicate an eating Therapy/Recovery disorder, obesity (not morbid) with BMI 32.5. Intake form indicates seizures 2009, arthritis, diabetes II, thyroid disorder. PT-OP-C Subjective Start: 02/09/22 17:26 Freq: Status: Active Protocol: Document 04/24/22 13:04 LRN (Rec: 04/24/22 13:48 LRN [id number]) OP-PT Subjective Patient Comments Patient Comments [place] the STM was helpful. States she has been busy so did not do the ankle exercises . 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 Patient Questionnaires Lower Extremity Functional Scale LEFS Score 44 LEFS Impairment 40 to 59% Impaired (Score 32- 47) OP-PT Pain Assessment Pain Assessment Grid Paper Pain Assessment Grid Completed Yes Location Thighs Intensity 4 Hips Intensity 5 Back Intensity 5 Scale Used Numeric (0 - 10) PT-OP-D Balance Start: 02/09/22 17:26 Freq: Status: Active Protocol: Document 02/13/22 13:04 LRN (Rec: 02/13/22 15:04 LRN [id number]) Balance Tests Single Limb Standing Single Limb- Right 3 secs, without shoes Single Limb- Left 3 secs, without shoes PT-OP-H Neuro Start: 02/09/22 17:26 Freq: Status: Active Protocol: Document 02/13/22 13:04 LRN (Rec: 02/13/22 15:04 LRN [id number]) Sensation Evaluation Gross Sensation Gross Sensation WNL PT-OP-J Posture/Palpation/Skin Start: 02/09/22 17:26 Freq: Status: Active Protocol: Document 02/13/22 13:04 LRN (Rec: 02/13/22 15:04 LRN [id number]) Posture Evaluation Position Standing Head/C-Spine Posture Forward Head T-Spine Posture Increased Kyphosis Shoulder Posture (L) Elevated Pelvis Posture (L) Rotated Anterior,(R) Rotated Posterior,(R) Iliac Crest Superior Comments Posture Comments L leg in ER, pants left rotated. Sacrum is R rotated Palpation Assessment Location L hip Palpation Location TFL muscle & IT band, Piriformis Palpation Findings Tenderness R hip Palpation Location TFL muscle & IT band, Piriformis Palpation Findings Tenderness Back Palpation Location Across low back at sacral level Palpation Findings Tenderness PT-OP-K Range of Motion Start: 02/09/22 17:26 Freq: Status: Active Protocol: Document 02/13/22 13:04 LRN (Rec: 02/13/22 15:04 LRN [id number]) Lumbar Spine Range of Motion Lumbar Spine Active Degrees Testing Position Standing Flexion 75 Extension 11 Lateral Flexion Left 6 Lateral Flexion Right 13 ROM Limitations Pain Comments Flexion is with 38 deg's hip flexion Extension is with 5 deg's hip extension (with bilateral hamstring pain) Hip Goniometric Range of Motion Hip Right Passive Testing Position Supine Straight Leg Raise 55 Internal Rotation 20 External Rotation 50 Left Passive Testing Position Supine Straight Leg Raise 55 Internal Rotation 10 External Rotation 50 PT-OP-L Special Tests Start: 02/09/22 17:26 Freq: Status: Active Protocol: Document 02/13/22 13:04 LRN (Rec: 02/13/22 15:04 LRN [id number]) Special Tests Lumbar Spine Special Tests Straight Leg Raise Test Results + bilaterally Comments SLR is 55 deg's with hamstring /lower leg pain Hip Special Tests Piriformis Comments Pt did not tolerate test position. PT-OP-M Strength Start: 02/09/22 17:26 Freq: Status: Active Protocol: Document 02/13/22 13:04 LRN (Rec: 02/13/22 15:04 LRN [id number]) Trunk Strength Trunk Manual Muscle Testing Testing Position Supine Core Stabilization Pt was not able to maintain core stability with resistance given to LE's. Hip Strength Hip Manual Muscle Testing Right Comments Pt had difficulty coming to full stance with sit<>stand due to knee pain. Left Comments Pt had difficulty coming to full stance with sit<>stand due to knee pain. PT-OP-Q Treatments Start: 02/09/22 17:26 Freq: Status: Active Protocol: Document 04/24/22 13:04 LRN (Rec: 04/24/22 13:48 LRN [id number]) Therapeutic Exercises Supine Exercises Hamstring/LE neural stretch Supine Exercise Name Hamstring/LE neural stretch Side bilateral Equipment Used towel behind thigh, lower leg lift and AP Reps/Minutes x10 AP: DF to PF and IV to glide tibial nerve/muscles- good response Comments pain free- took away pain posterior thigh Sitting Exercises Ankle strengthening Sitting Exercise Name Ankle EV, IV, DF Side left Reps/Minutes 30x each Comments Much training and cuing to perform ex correctly. R knee pn with ankle EV Manual Therapy Treatment Soft Tissue Mobilization R lower leg Body Location Medial and along R Tibia Mobilization Type Strumming Intensity/Depth Superficial to Moderate Body Position Hooklying and Sitting Comments Legs on Bolster in Hooklying Neuro Re-Education Treatment Balance Activities SLS Details Shyam SLS Equipment // bars Reps/Duration 3' Comments Poor tolerance bilaterally with posterior thigh pain. Semi-tandem stance Details Semi-tandem Equipment // bars Reps/Duration 4' Comments Poor tolerance to positioning causes R lateral hip and lateral thigh pain with RLE fwd or behind. . feet together Details Feet together Equipment // bars Reps/Duration 2' Self-Care/Home Management Treatment Education Patient Education Home Exercise Program Activities Self-Care/Home Management Activities Issued & reviewed HEP: LE Hamstring/neural stretch. PT-OP-T Assessment and Plan Start: 02/09/22 17:26 Freq: Status: Active Protocol: Document 04/24/22 13:04 LRN (Rec: 04/24/22 13:48 LRN [id number]) Physical Therapy Assessment Goals Four Impairment Bilateral thigh pain Impairment Thigh pain 5-6/10 with occasional 8-9 shooting pain. LEFS is 44 with one question unanswered (40-59% impaired with score 32-47) Short Term Goal (STG) Decrease thigh pain to 2-3/10, with pt able to ambulate with a stable gait and greater ease. 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 04/02/22: Still gets thigh pain when stands for a bit, finds if wt shifts better. 04/06/22: States leg pain gone but having R>L hip jt pain into WB 2-4/10. (04/17/22: Shooting pain resolved with change in diabetic medications; thigh, calf, knee pains are rated 3-6 /10). (04/19/22: Occasional back pain, little pain when sitting down). (04/24/22: Thigh pn 4-6/10; LBP 5/10; Hip pain 4/10) STG Duration 04/01/22 (04/24/22 progressing) [employer] Goal (LTG) Improve function per LEFS score 48-62 (20-39% impaired) (04/24/22: LEFS with ALL questions answered is 44 (40- 59% impaired, score 32-47) LTG Duration 05/14/22 Two Impairment Pain limiting walking Impairment Pain limiting walking to 15-20 minutes before needing to stop and stretch due to pain. LBP rated 6-8/10. Short Term Goal (STG) Pt will be able to SLS 10 secs or greater for improved balance. (04/17/22: SLS: 23 secs right, 9 secs left; NOTE: Steel isabel and plate in L ankle/lower leg ) STG Duration 04/01/22 (04/17/22: SLS: LLE - Improving; RLE-MET GOAL) [employer] Goal (LTG) Decrease LBP with walking to tolerated 30 minutes or more walking for exercise on level surface. (04/17/22: LBP is rated 0-7 with walking > 10-15 minutes) (04/24/22: LBP rated 5/10) LTG Duration 05/14/22 (04/24/22: LBP decreased) One Impairment Pt is not consistent on a HEP Short Term Goal (STG) Pt will be educated in self care pain management with use of modalities and proper body mechanics for ADLs and transfers. (02/15/22: Pt educated in proper sup>sit>stand with log roll method & discussed proper body mechanics for picking up objects) (03/01/22: Pt educated in proper body mechanics for ADLs and transfers, and handouts issued). 03/22/22: reviewed seated PF stretch and self STMs to allow relief to walk. STG Duration 04/01/22 (03/29/22: MET GOAL) [employer] Goal (LTG) Independent and consistent with a final self care HEP of back and hip ex's. (02/27/22: HEP issued of hip stretches: fig 4, lateral hip, piriformis). (03/01/22: HEP issued hip flexor stretch). 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 (03/29/22: HEP issued of Hamstring/LE neural stretch) 04/06/22: added supine hip abd, supine resisted clamshell for hip abd strengthening) (04/19/22: HEP: Ankle and knee TB strengthening ex's) (04/24/22: HEP: Added Hamstring/LE neural stretch) LTG Duration 05/14/22 (04/24/22: Progressed) Progress Towards Goals Progress Comments Progressed HEP Pain decreasing: LBP 5/10, was 8/10; Hip pain 4-6/10 was 7/10. Thigh pain 4-6/10 was 5-6/10. Assessment Summary Assessment Pt appeared to have a good response to STM with a few days of lessening of tension in R lower leg along the tibia medially. Pt has had lessening of pain in low back and hips; thigh pain remains same with worst 6/10, but pt is having less pain at times ( 4/10 vs initially 5/10). Poor tolerance to balance ex's due to posterior R thigh pain with positions of balancing. Poor posture in LB with balance ex's and needed cuing for PPT of pelvis and tightening of abdominals. Physical Therapy Plan Frequency and Duration Frequency of Treatment 2x/Week Plan of Care Start Date 02/13/22 Plan of Care End Date 08/22/22 Next Visit Focus/Plan Next Note Type Treatment Note Next Visit Plan Strengthen Left ankle and knee (to improve SLS and tolerance to walking). Add HEP: Stretch to Hip AD's. Initiate walking & balance training. Continue progress HEP: hip abd & Core stab: stand shld ext, band walk, hurdles, dynamic gait. Manual: IT Band, along R tibia; stretching of trunk rotators. Modailities: US, treat bilateral Bursitis (?sciatic pain). Ther Ex: Core stabilization, monitor for normalized hip mobility, aerobic conditioning for walking and core stab.
--- NOTE | 2022-04-26 12:31 | PT.OTN ---
Current Diagnoses Pain in unspecified hip (04/26/22) Dorsalgia, unspecified (04/26/22) Muscle weakness (generalized) (04/26/22) Other abnormalities of gait and mobility (04/26/22) Physical Therapy Treatment Note PT-OP-A Visit Information Start: 02/09/22 17:26 Freq: Status: Active Protocol: Document 04/26/22 11:25 LRN (Rec: 04/26/22 12:30 LRN [id number]) Out-Patient Physical Therapy Visit Information Visit Information Visit Type Treatment Note Visit Start Time 11:25 Visit Stop Time 12:07 Total Visit Minutes 42 Visit Number 16 Evaluation Information Evaluation Date 02/13/22 Precautions Precautions Type 2 Diabetes mellitus, blood sugar levels unstable, fractured L ankle with isabel in tibia, with plates and screws at L ankle. Record review indicates: Seizure disorder~ 2008, skin cancer ~2013, Obesity 02/08/22 (BMI 30.0-34.9 ) PT-OP-B Current Condition Start: 02/09/22 17:26 Freq: Status: Active Protocol: Document 02/13/22 13:04 LRN (Rec: 02/13/22 15:04 LRN [id number]) Current Condition History of Current Condition Onset Date 09/2020. Problem with walking in 2019. Current Complaints Lower back and bursitis pain, sometime legs give out due to pain, ache. History of Current Condition Has had lower back pain and bilateral bursitis since 2019. Has had bursitis one or two times in the past. Pt doesn't think about her pain and has difficulty identifying her pain intensity. She has tight IT Bands with tenderness noted. Her L leg aches sometimes and with sit to stand sometimes the leg gives out. She sometimes takes IBP. Has been having pains in the buttocks that her spouse thinks is her sciatic nerve. Has midback pain 40-50% of the time. Can't do housework for > 1/2 hr. Leg length dicrepancy with L leg 1 shorter than the R. Lift in L shoe put in 2019 by exhibit cleaner. Prior Treatments and Tests P.T. at [facility] from winter to winter but discontinued due to Covid fears. P.T. with Joesph Dias in Nov 2021, for 1-1.5 months, but was getting an emotional trigger and couldn't continue; therefore wants a female therapist. She states her pain did lessen overall some. She wasn't always consistent with her exercises. X-rays of L/S: Grade 1 L4-L5 degenerative spondylolisthesis , Multilevel degenerative disease, Multilevel facet arthropathy. Developmental History Developmental History Tailbone injury at 18 yo. Treatment Goals Patient/Caregiver Goals Pt goal: Exercise to reduce pain so that it doesn't interrupt her while she walks (Walking 10-15' LB becomes so tight that she needs to stretch out her low back), month ago pain in legs started and would like it to go away, eliminate balance problems. Prior Functional Status Baseline Function- ADL's Independent Baseline Function- Mobility Independent Baseline Function- Gait Before 2018 didn't notice back being a hinderance with hiking, walking. Baseline Function- Other Able to bend down and pick things up without thinking or hesitation 2 yrs ago. Current Functional Impairments (Reported) Functional Limitations- ADL's Must bend down slowly to pick things up. Functional Limitations- Mobility/Gait Brisk walk for only 15-20' Personal Factors Other Personal Factors That May Effect Records indicate an eating Therapy/Recovery disorder, obesity (not morbid) with BMI 32.5. Intake form indicates seizures 2009, arthritis, diabetes II, thyroid disorder. PT-OP-C Subjective Start: 02/09/22 17:26 Freq: Status: Active Protocol: Document 04/26/22 11:25 LRN (Rec: 04/26/22 12:30 LRN [id number]) OP-PT Subjective Patient Comments Patient Comments Currently L lateral pain not bothering her. Today at [facility] had L lateral thigh pain after standing awhilel. Today with kneeling not able to tolerate well. [place] the beach after 10- 15' the LB tightened up. PT-OP-D Balance Start: 02/09/22 17:26 Freq: Status: Active Protocol: Document 02/13/22 13:04 LRN (Rec: 02/13/22 15:04 LRN [id number]) Balance Tests Single Limb Standing Single Limb- Right 3 secs, without shoes Single Limb- Left 3 secs, without shoes PT-OP-H Neuro Start: 02/09/22 17:26 Freq: Status: Active Protocol: Document 02/13/22 13:04 LRN (Rec: 02/13/22 15:04 LRN [id number]) Sensation Evaluation Gross Sensation Gross Sensation WNL PT-OP-J Posture/Palpation/Skin Start: 02/09/22 17:26 Freq: Status: Active Protocol: Document 02/13/22 13:04 LRN (Rec: 02/13/22 15:04 LRN [id number]) Posture Evaluation Position Standing Head/C-Spine Posture Forward Head T-Spine Posture Increased Kyphosis Shoulder Posture (L) Elevated Pelvis Posture (L) Rotated Anterior,(R) Rotated Posterior,(R) Iliac Crest Superior Comments Posture Comments L leg in ER, pants left rotated. Sacrum is R rotated Palpation Assessment Location L hip Palpation Location TFL muscle & IT band, Piriformis Palpation Findings Tenderness R hip Palpation Location TFL muscle & IT band, Piriformis Palpation Findings Tenderness Back Palpation Location Across low back at sacral level Palpation Findings Tenderness PT-OP-K Range of Motion Start: 02/09/22 17:26 Freq: Status: Active Protocol: Document 02/13/22 13:04 LRN (Rec: 02/13/22 15:04 LRN [id number]) Lumbar Spine Range of Motion Lumbar Spine Active Degrees Testing Position Standing Flexion 75 Extension 11 Lateral Flexion Left 6 Lateral Flexion Right 13 ROM Limitations Pain Comments Flexion is with 38 deg's hip flexion Extension is with 5 deg's hip extension (with bilateral hamstring pain) Hip Goniometric Range of Motion Hip Right Passive Testing Position Supine Straight Leg Raise 55 Internal Rotation 20 External Rotation 50 Left Passive Testing Position Supine Straight Leg Raise 55 Internal Rotation 10 External Rotation 50 PT-OP-L Special Tests Start: 02/09/22 17:26 Freq: Status: Active Protocol: Document 02/13/22 13:04 LRN (Rec: 02/13/22 15:04 LRN [id number]) Special Tests Lumbar Spine Special Tests Straight Leg Raise Test Results + bilaterally Comments SLR is 55 deg's with hamstring /lower leg pain Hip Special Tests Piriformis Comments Pt did not tolerate test position. PT-OP-M Strength Start: 02/09/22 17:26 Freq: Status: Active Protocol: Document 02/13/22 13:04 LRN (Rec: 02/13/22 15:04 LRN [id number]) Trunk Strength Trunk Manual Muscle Testing Testing Position Supine Core Stabilization Pt was not able to maintain core stability with resistance given to LE's. Hip Strength Hip Manual Muscle Testing Right Comments Pt had difficulty coming to full stance with sit<>stand due to knee pain. Left Comments Pt had difficulty coming to full stance with sit<>stand due to knee pain. PT-OP-Q Treatments Start: 02/09/22 17:26 Freq: Status: Active Protocol: Document 04/26/22 11:25 LRN (Rec: 04/26/22 12:30 LRN [id number]) Therapeutic Exercises Supine Exercises DKTC stretch Supine Exercise Name DKTC stretch Reps/Minutes 10SH x 10 LTR Supine Exercise Name LTR stretch Side bilateral Reps/Minutes 2' TA Tightening Supine Exercise Name Hands/knees push Side bilateral Reps/Minutes 10SH x 10 Comments Extra time for proper PPT to start and discussion of ex positioning. Sitting Exercises Hands/knees push Sitting Exercise Name Hands/knees push Reps/Minutes 10SH x 10 Comments Extra time for proper PPT to start and discussion of ex positioning. Standing Exercises Postural training for squat Standing Exercise Name Postural trng for squat to pick things up btw feet. Reps/Minutes 16' Trunk flex Standing Exercise Name Vibha trunk flex Reps/Minutes 10SH x 10 Comments Extra time for proper PPT to start and trng of ex position for max benefit Self-Care/Home Management Treatment Education Patient Education Body Mechanics,Posture Other Education Pt education in posturing for decreasing LBP and onset of L lateral thigh pain. Extensive body mechanics training for keeping pelvis in neutral spine positioning with bending over and picking up objects from the beach (see ex). Activities Self-Care/Home Management Activities Issued & reviewed HEP: DKTC stretch, Hands/Knees push with I/S to do sup, sit, stand. PT-OP-T Assessment and Plan Start: 02/09/22 17:26 Freq: Status: Active Protocol: Document 04/26/22 11:25 LRN (Rec: 04/26/22 12:30 LRN [id number]) Physical Therapy Assessment Goals Four Impairment Bilateral thigh pain Impairment Thigh pain 5-6/10 with occasional 8-9 shooting pain. LEFS is 44 with one question unanswered (40-59% impaired with score 32-47) Short Term Goal (STG) Decrease thigh pain to 2-3/10, with pt able to ambulate with a stable gait and greater ease. 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 04/02/22: Still gets thigh pain when stands for a bit, finds if wt shifts better. 04/06/22: States leg pain gone but having R>L hip jt pain into WB 2-4/10. (04/17/22: Shooting pain resolved with change in diabetic medications; thigh, calf, knee pains are rated 3-6 /10). (04/19/22: Occasional back pain, little pain when sitting down). (04/24/22: Thigh pn 4-6/10; LBP 5/10; Hip pain 4/10) STG Duration 04/01/22 (04/24/22 progressing) Detention Goal (LTG) Improve function per LEFS score 48-62 (20-39% impaired) (04/24/22: LEFS with ALL questions answered is 44 (40- 59% impaired, score 32-47) LTG Duration 05/14/22 Two Impairment Pain limiting walking Impairment Pain limiting walking to 15-20 minutes before needing to stop and stretch due to pain. LBP rated 6-8/10. Short Term Goal (STG) Pt will be able to SLS 10 secs or greater for improved balance. (04/17/22: SLS: 23 secs right, 9 secs left; NOTE: Steel isabel and plate in L ankle/lower leg ) STG Duration 04/01/22 (04/17/22: SLS: LLE - Improving; RLE-MET GOAL) Detention Goal (LTG) Decrease LBP with walking to tolerated 30 minutes or more walking for exercise on level surface. (04/17/22: LBP is rated 0-7 with walking > 10-15 minutes) (04/24/22: LBP rated 5/10) LTG Duration 05/14/22 (04/24/22: LBP decreased) One Impairment Pt is not consistent on a HEP Short Term Goal (STG) Pt will be educated in self care pain management with use of modalities and proper body mechanics for ADLs and transfers. (02/15/22: Pt educated in proper sup>sit>stand with log roll method & discussed proper body mechanics for picking up objects) (03/01/22: Pt educated in proper body mechanics for ADLs and transfers, and handouts issued). 03/22/22: reviewed seated PF stretch and self STMs to allow relief to walk. STG Duration 04/01/22 (03/29/22: MET GOAL) Procurement Engineer Goal (LTG) Independent and consistent with a final self care HEP of back and hip ex's. (02/27/22: HEP issued of hip stretches: fig 4, lateral hip, piriformis). (03/01/22: HEP issued hip flexor stretch). 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 (03/29/22: HEP issued of Hamstring/LE neural stretch) 04/06/22: added supine hip abd, supine resisted clamshell for hip abd strengthening) (04/19/22: HEP: Ankle and knee TB strengthening ex's) (04/24/22: HEP: Added Hamstring/LE neural stretch) (04/26/22: HEP: DKTC stretch, Hands/Knees push with I/S to do sup, sit, stand) LTG Duration 05/14/22 (04/26/22: Progressed) Progress Towards Goals Progress Comments Progressed HEP Assessment Summary Assessment Pt needing much review and reasons given to doing exercises and pt asking very specific questions showing possbly lack of awareness of doing ex's and understanding of need for exercise. Pt doesn't show good carry over of concepts, possibly from lack of understanding? Further review needed for posturing and working towards PPT with standing/kneeling to decrease pain and improve tolerance. Physical Therapy Plan Next Visit Focus/Plan Next Note Type Treatment Note Next Visit Plan (2 visits to KX) Review core stab ex in PPT position. Add HEP: Stretch to Hip AD's. Initiate walking & balance training. Pt to Strengthen Left ankle and knee (to improve SLS and tolerance to walking). Continue progress HEP: hip abd & Core stab: stand shld ext, band walk, hurdles, dynamic gait. Manual: IT Band, along R tibia; stretching of trunk rotators. Modailities: US, treat bilateral Bursitis (?sciatic pain). Ther Ex: Core stabilization ( flexion) and monitor for normalized hip mobility, aerobic conditioning for walking and core stab.
--- NOTE | 2022-05-03 11:08 | PT.OTN ---
Current Diagnoses Pain in unspecified hip (05/03/22) Dorsalgia, unspecified (05/03/22) Muscle weakness (generalized) (05/03/22) Other abnormalities of gait and mobility (05/03/22) Physical Therapy Treatment Note PT-OP-A Visit Information Start: 02/09/22 17:26 Freq: Status: Active Protocol: Document 05/03/22 08:19 LRN (Rec: 05/03/22 09:03 LRN [id number]) Out-Patient Physical Therapy Visit Information Visit Information Visit Type Treatment Note Visit Note 05/06 after PN Visit Start Time 08:19 Visit Stop Time 08:57 Total Visit Minutes 38 Visit Number 17 Evaluation Information Evaluation Date 02/13/22 Precautions Precautions Type 2 Diabetes mellitus, blood sugar levels unstable, fractured L ankle with isabel in tibia, with plates and screws at L ankle. Record review indicates: Seizure disorder~ 2008, skin cancer ~2013, Obesity 02/08/22 (BMI 30.0-34.9 ) PT-OP-B Current Condition Start: 02/09/22 17:26 Freq: Status: Active Protocol: Document 02/13/22 13:04 LRN (Rec: 02/13/22 15:04 LRN [id number]) Current Condition History of Current Condition Onset Date 09/2020. Problem with walking in 2019. Current Complaints Lower back and bursitis pain, sometime legs give out due to pain, ache. History of Current Condition Has had lower back pain and bilateral bursitis since 2019. Has had bursitis one or two times in the past. Pt doesn't think about her pain and has difficulty identifying her pain intensity. She has tight IT Bands with tenderness noted. Her L leg aches sometimes and with sit to stand sometimes the leg gives out. She sometimes takes IBP. Has been having pains in the buttocks that her spouse thinks is her sciatic nerve. Has midback pain 40-50% of the time. Can't do housework for > 1/2 hr. Leg length dicrepancy with L leg 1 shorter than the R. Lift in L shoe put in 2019 by comparison shopper. Prior Treatments and Tests P.T. at [facility] from winter to winter but discontinued due to Covid fears. P.T. with Joesph Dias in Nov 2021, for 1-1.5 months, but was getting an emotional trigger and couldn't continue; therefore wants a female therapist. She states her pain did lessen overall some. She wasn't always consistent with her exercises. X-rays of L/S: Grade 1 L4-L5 degenerative spondylolisthesis , Multilevel degenerative disease, Multilevel facet arthropathy. Developmental History Developmental History Tailbone injury at 18 yo. Treatment Goals Patient/Caregiver Goals Pt goal: Exercise to reduce pain so that it doesn't interrupt her while she walks (Walking 10-15' LB becomes so tight that she needs to stretch out her low back), month ago pain in legs started and would like it to go away, eliminate balance problems. Prior Functional Status Baseline Function- ADL's Independent Baseline Function- Mobility Independent Baseline Function- Gait Before 2018 didn't notice back being a hinderance with hiking, walking. Baseline Function- Other Able to bend down and pick things up without thinking or hesitation 2 yrs ago. Current Functional Impairments (Reported) Functional Limitations- ADL's Must bend down slowly to pick things up. Functional Limitations- Mobility/Gait Brisk walk for only 15-20' Personal Factors Other Personal Factors That May Effect Records indicate an eating Therapy/Recovery disorder, obesity (not morbid) with BMI 32.5. Intake form indicates seizures 2009, arthritis, diabetes II, thyroid disorder. PT-OP-C Subjective Start: 02/09/22 17:26 Freq: Status: Active Protocol: Document 05/03/22 08:19 LRN (Rec: 05/03/22 09:03 LRN [id number]) OP-PT Subjective Patient Comments Patient Comments States the band across her R foot is less, now only feels it across the toes. States she did her stretches one night and did not have back pain, but tightness towards the end. PT-OP-D Balance Start: 02/09/22 17:26 Freq: Status: Active Protocol: Document 02/13/22 13:04 LRN (Rec: 02/13/22 15:04 LRN [id number]) Balance Tests Single Limb Standing Single Limb- Right 3 secs, without shoes Single Limb- Left 3 secs, without shoes PT-OP-H Neuro Start: 02/09/22 17:26 Freq: Status: Active Protocol: Document 02/13/22 13:04 LRN (Rec: 02/13/22 15:04 LRN [id number]) Sensation Evaluation Gross Sensation Gross Sensation WNL PT-OP-J Posture/Palpation/Skin Start: 02/09/22 17:26 Freq: Status: Active Protocol: Document 02/13/22 13:04 LRN (Rec: 02/13/22 15:04 LRN [id number]) Posture Evaluation Position Standing Head/C-Spine Posture Forward Head T-Spine Posture Increased Kyphosis Shoulder Posture (L) Elevated Pelvis Posture (L) Rotated Anterior,(R) Rotated Posterior,(R) Iliac Crest Superior Comments Posture Comments L leg in ER, pants left rotated. Sacrum is R rotated Palpation Assessment Location L hip Palpation Location TFL muscle & IT band, Piriformis Palpation Findings Tenderness R hip Palpation Location TFL muscle & IT band, Piriformis Palpation Findings Tenderness Back Palpation Location Across low back at sacral level Palpation Findings Tenderness PT-OP-K Range of Motion Start: 02/09/22 17:26 Freq: Status: Active Protocol: Document 02/13/22 13:04 LRN (Rec: 02/13/22 15:04 LRN [id number]) Lumbar Spine Range of Motion Lumbar Spine Active Degrees Testing Position Standing Flexion 75 Extension 11 Lateral Flexion Left 6 Lateral Flexion Right 13 ROM Limitations Pain Comments Flexion is with 38 deg's hip flexion Extension is with 5 deg's hip extension (with bilateral hamstring pain) Hip Goniometric Range of Motion Hip Right Passive Testing Position Supine Straight Leg Raise 55 Internal Rotation 20 External Rotation 50 Left Passive Testing Position Supine Straight Leg Raise 55 Internal Rotation 10 External Rotation 50 PT-OP-L Special Tests Start: 02/09/22 17:26 Freq: Status: Active Protocol: Document 02/13/22 13:04 LRN (Rec: 02/13/22 15:04 LRN [id number]) Special Tests Lumbar Spine Special Tests Straight Leg Raise Test Results + bilaterally Comments SLR is 55 deg's with hamstring /lower leg pain Hip Special Tests Piriformis Comments Pt did not tolerate test position. PT-OP-M Strength Start: 02/09/22 17:26 Freq: Status: Active Protocol: Document 02/13/22 13:04 LRN (Rec: 02/13/22 15:04 LRN [id number]) Trunk Strength Trunk Manual Muscle Testing Testing Position Supine Core Stabilization Pt was not able to maintain core stability with resistance given to LE's. Hip Strength Hip Manual Muscle Testing Right Comments Pt had difficulty coming to full stance with sit<>stand due to knee pain. Left Comments Pt had difficulty coming to full stance with sit<>stand due to knee pain. PT-OP-Q Treatments Start: 02/09/22 17:26 Freq: Status: Active Protocol: Document 05/03/22 08:19 LRN (Rec: 05/03/22 09:03 LRN [id number]) Therapeutic Exercises Supine Exercises Hip AD stretch Supine Exercise Name Stretch to adductors Side bilateral Reps/Minutes 60 H x 1 each Comments Extra time to determine max tolerated stretch position and hold DKTC stretch Supine Exercise Name DKTC stretch Reps/Minutes 10SH x 10 Hamstring/LE neural stretch Supine Exercise Name Hamstring/LE neural stretch Side bilateral Equipment Used towel behind thigh, lower leg lift and AP Reps/Minutes x10 AP: DF to PF and IV to glide tibial nerve/muscles- good response Comments pain free- took away pain posterior thigh Hip ER stretch Supine Exercise Name Fig 4 stretch, f/b active stretch Side bilateral Reps/Minutes 4' (60 H x 1 each) Comments good form, cued breath and allow hip relax/sink toward floor Lateral Hip stretch Supine Exercise Name Lateral Hip stretch with foot on opposite knee Side bilateral Reps/Minutes 3' (60 H x 1 each) Comments Extra time for retraining, pt had no c/o back pain Piriformis stretch Supine Exercise Name hip IR/ ER seated today Side bilateral Equipment Used supported by BUE Reps/Minutes 30 x3 B Comments good form/response Self-Care/Home Management Treatment Education Patient Education Home Exercise Program Other Education Extensive review of pt's HEP. Ex's out: Ex's ( stretches) for her to do before walking (in PM), AM ( strengthening & stretches), and ex's to do throughout the day. Activities Self-Care/Home Management Activities Issued & reviewed HEP: Hip ADDuctor stretch sitting (one leg on table) PT-OP-T Assessment and Plan Start: 02/09/22 17:26 Freq: Status: Active Protocol: Document 05/03/22 08:19 LRN (Rec: 05/03/22 09:03 LRN [id number]) Physical Therapy Assessment Goals Four Impairment Bilateral thigh pain Impairment Thigh pain 5-6/10 with occasional 8-9 shooting pain. LEFS is 44 with one question unanswered (40-59% impaired with score 32-47) Short Term Goal (STG) Decrease thigh pain to 2-3/10, with pt able to ambulate with a stable gait and greater ease. 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 04/02/22: Still gets thigh pain when stands for a bit, finds if wt shifts better. 04/06/22: States leg pain gone but having R>L hip jt pain into WB 2-4/10. (04/17/22: Shooting pain resolved with change in diabetic medications; thigh, calf, knee pains are rated 3-6 /10). (04/19/22: Occasional back pain, little pain when sitting down). (04/24/22: Thigh pn 4-6/10; LBP 5/10; Hip pain 4/10) STG Duration 04/01/22 (04/24/22 progressing) Superintendent Meter Tests Goal (LTG) Improve function per LEFS score 48-62 (20-39% impaired) (04/24/22: LEFS with ALL questions answered is 44 (40- 59% impaired, score 32-47) LTG Duration 05/14/22 Two Impairment Pain limiting walking Impairment Pain limiting walking to 15-20 minutes before needing to stop and stretch due to pain. LBP rated 6-8/10. Short Term Goal (STG) Pt will be able to SLS 10 secs or greater for improved balance. (04/17/22: SLS: 23 secs right, 9 secs left; NOTE: Steel isabel and plate in L ankle/lower leg ) STG Duration 04/01/22 (04/17/22: SLS: LLE - Improving; RLE-MET GOAL) Mcfp Goal (LTG) Decrease LBP with walking to tolerated 30 minutes or more walking for exercise on level surface. (04/17/22: LBP is rated 0-7 with walking > 10-15 minutes) (04/24/22: LBP rated 5/10) LTG Duration 05/14/22 (04/24/22: LBP decreased) One Impairment Pt is not consistent on a HEP Short Term Goal (STG) Pt will be educated in self care pain management with use of modalities and proper body mechanics for ADLs and transfers. (02/15/22: Pt educated in proper sup>sit>stand with log roll method & discussed proper body mechanics for picking up objects) (03/01/22: Pt educated in proper body mechanics for ADLs and transfers, and handouts issued). 03/22/22: reviewed seated PF stretch and self STMs to allow relief to walk. STG Duration 04/01/22 (03/29/22: MET GOAL) Mcfp Goal (LTG) Independent and consistent with a final self care HEP of back and hip ex's. (02/27/22: HEP issued of hip stretches: fig 4, lateral hip, piriformis). (03/01/22: HEP issued hip flexor stretch). 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 (03/29/22: HEP issued of Hamstring/LE neural stretch) 04/06/22: added supine hip abd, supine resisted clamshell for hip abd strengthening) (04/19/22: HEP: Ankle and knee TB strengthening ex's) (04/24/22: HEP: Added Hamstring/LE neural stretch) (04/26/22: HEP: DKTC stretch, Hands/Knees push with I/S to do sup, sit, stand) (05/03/22: HEP: Hip Adductor stretch-leg on table) LTG Duration 05/14/22 (05/03/22: Progressed ) Progress Towards Goals Progress Comments Completed ex stretches for HEP . Assessment Summary Assessment Pt needing much review, instruction and cuing for how to organize her HEP. Pt appears to have a better understanding of her self care program for the next month. She shows good understanding of new ADDuctor stretch. Physical Therapy Plan Frequency and Duration Frequency of Treatment 2x/Week Plan of Care Start Date 02/13/22 Plan of Care End Date 06/18/22 Next Visit Focus/Plan Next Note Type Treatment Note Next Visit Plan (1 visits to KX) Pt planning on not being able to attend through April due to family committments. Pt will try to do her HEP and will resme in May. New POC needed in May. Assess progress towards improved symmetry of hip mobility on HEP. Review core stab ex in PPT position and progress core strengthening. Initiate walking & balance training. Manual: IT Band, along R tibia; stretching of trunk rotators. Pt to Strengthen Left ankle and knee (to improve SLS and tolerance to walking). Cont: hip abd & Core stab: ( ex: stand shld ext, band walk, hurdles, dynamic gait.). Modailities: US, treat bilateral Bursitis (?sciatic pain). Ther Ex: Core stabilization ( flexion), aerobic conditioning for walking and core stab.
--- NOTE | 2022-05-14 12:16 | PT.OTN ---
Current Diagnoses Pain in unspecified hip (05/14/22) Dorsalgia, unspecified (05/14/22) Muscle weakness (generalized) (05/14/22) Other abnormalities of gait and mobility (05/14/22) Physical Therapy Treatment Note PT-OP-A Visit Information Start: 02/09/22 17:26 Freq: Status: Active Protocol: Document 05/14/22 11:19 LRN (Rec: 05/14/22 12:13 LRN [id number]) Out-Patient Physical Therapy Visit Information Visit Information Visit Type Treatment Note Visit Note 06/06 after PN Visit Start Time 11:19 Visit Stop Time 12:07 Total Visit Minutes 48 Visit Number 18 Evaluation Information Evaluation Date 02/13/22 Precautions Precautions Type 2 Diabetes mellitus, blood sugar levels unstable, fractured L ankle with isabel in tibia, with plates and screws at L ankle. Record review indicates: Seizure disorder~ 2008, skin cancer ~2013, Obesity 02/08/22 (BMI 30.0-34.9 ) PT-OP-B Current Condition Start: 02/09/22 17:26 Freq: Status: Active Protocol: Document 02/13/22 13:04 LRN (Rec: 02/13/22 15:04 LRN [id number]) Current Condition History of Current Condition Onset Date 09/2020. Problem with walking in 2019. Current Complaints Lower back and bursitis pain, sometime legs give out due to pain, ache. History of Current Condition Has had lower back pain and bilateral bursitis since 2019. Has had bursitis one or two times in the past. Pt doesn't think about her pain and has difficulty identifying her pain intensity. She has tight IT Bands with tenderness noted. Her L leg aches sometimes and with sit to stand sometimes the leg gives out. She sometimes takes IBP. Has been having pains in the buttocks that her spouse thinks is her sciatic nerve. Has midback pain 40-50% of the time. Can't do housework for > 1/2 hr. Leg length dicrepancy with L leg 1 shorter than the R. Lift in L shoe put in 2019 by bench assembler electrical. Prior Treatments and Tests P.T. at [facility] from winter to winter but discontinued due to Covid fears. P.T. with Joesph Dias in Nov 2021, for 1-1.5 months, but was getting an emotional trigger and couldn't continue; therefore wants a female therapist. She states her pain did lessen overall some. She wasn't always consistent with her exercises. X-rays of L/S: Grade 1 L4-L5 degenerative spondylolisthesis , Multilevel degenerative disease, Multilevel facet arthropathy. Developmental History Developmental History Tailbone injury at 18 yo. Treatment Goals Patient/Caregiver Goals Pt goal: Exercise to reduce pain so that it doesn't interrupt her while she walks (Walking 10-15' LB becomes so tight that she needs to stretch out her low back), month ago pain in legs started and would like it to go away, eliminate balance problems. Prior Functional Status Baseline Function- ADL's Independent Baseline Function- Mobility Independent Baseline Function- Gait Before 2018 didn't notice back being a hinderance with hiking, walking. Baseline Function- Other Able to bend down and pick things up without thinking or hesitation 2 yrs ago. Current Functional Impairments (Reported) Functional Limitations- ADL's Must bend down slowly to pick things up. Functional Limitations- Mobility/Gait Brisk walk for only 15-20' Personal Factors Other Personal Factors That May Effect Records indicate an eating Therapy/Recovery disorder, obesity (not morbid) with BMI 32.5. Intake form indicates seizures 2009, arthritis, diabetes II, thyroid disorder. PT-OP-C Subjective Start: 02/09/22 17:26 Freq: Status: Active Protocol: Document 05/14/22 11:19 LRN (Rec: 05/14/22 12:13 LRN [id number]) OP-PT Subjective Patient Comments Patient Comments Last 2.5 days is feeling better. Humphrey tightening when got to the very end of the walk. Has not done ex's due family committents. States not having shooting pains in the R side. Today R hip and across the low back is sore, but not bad. Pt states she may get into an eating disorder program in [place] and my be there for 6-8 weeks, 5 days/week. Will call if she gets into the program. PT-OP-D Balance Start: 02/09/22 17:26 Freq: Status: Active Protocol: Document 02/13/22 13:04 LRN (Rec: 02/13/22 15:04 LRN [id number]) Balance Tests Single Limb Standing Single Limb- Right 3 secs, without shoes Single Limb- Left 3 secs, without shoes PT-OP-H Neuro Start: 02/09/22 17:26 Freq: Status: Active Protocol: Document 02/13/22 13:04 LRN (Rec: 02/13/22 15:04 LRN [id number]) Sensation Evaluation Gross Sensation Gross Sensation WNL PT-OP-J Posture/Palpation/Skin Start: 02/09/22 17:26 Freq: Status: Active Protocol: Document 02/13/22 13:04 LRN (Rec: 02/13/22 15:04 LRN [id number]) Posture Evaluation Position Standing Head/C-Spine Posture Forward Head T-Spine Posture Increased Kyphosis Shoulder Posture (L) Elevated Pelvis Posture (L) Rotated Anterior,(R) Rotated Posterior,(R) Iliac Crest Superior Comments Posture Comments L leg in ER, pants left rotated. Sacrum is R rotated Palpation Assessment Location L hip Palpation Location TFL muscle & IT band, Piriformis Palpation Findings Tenderness R hip Palpation Location TFL muscle & IT band, Piriformis Palpation Findings Tenderness Back Palpation Location Across low back at sacral level Palpation Findings Tenderness PT-OP-K Range of Motion Start: 02/09/22 17:26 Freq: Status: Active Protocol: Document 02/13/22 13:04 LRN (Rec: 02/13/22 15:04 LRN [id number]) Lumbar Spine Range of Motion Lumbar Spine Active Degrees Testing Position Standing Flexion 75 Extension 11 Lateral Flexion Left 6 Lateral Flexion Right 13 ROM Limitations Pain Comments Flexion is with 38 deg's hip flexion Extension is with 5 deg's hip extension (with bilateral hamstring pain) Hip Goniometric Range of Motion Hip Right Passive Testing Position Supine Straight Leg Raise 55 Internal Rotation 20 External Rotation 50 Left Passive Testing Position Supine Straight Leg Raise 55 Internal Rotation 10 External Rotation 50 PT-OP-L Special Tests Start: 02/09/22 17:26 Freq: Status: Active Protocol: Document 02/13/22 13:04 LRN (Rec: 02/13/22 15:04 LRN [id number]) Special Tests Lumbar Spine Special Tests Straight Leg Raise Test Results + bilaterally Comments SLR is 55 deg's with hamstring /lower leg pain Hip Special Tests Piriformis Comments Pt did not tolerate test position. PT-OP-M Strength Start: 02/09/22 17:26 Freq: Status: Active Protocol: Document 02/13/22 13:04 LRN (Rec: 02/13/22 15:04 LRN [id number]) Trunk Strength Trunk Manual Muscle Testing Testing Position Supine Core Stabilization Pt was not able to maintain core stability with resistance given to LE's. Hip Strength Hip Manual Muscle Testing Right Comments Pt had difficulty coming to full stance with sit<>stand due to knee pain. Left Comments Pt had difficulty coming to full stance with sit<>stand due to knee pain. PT-OP-Q Treatments Start: 02/09/22 17:26 Freq: Status: Active Protocol: Document 05/14/22 11:19 LRN (Rec: 05/14/22 12:13 LRN [id number]) Therapeutic Exercises Supine Exercises Hip AD stretch Supine Exercise Name Stretch to adductors, f/b 15x active stretch Side bilateral Reps/Minutes 60 H x 1 each Comments Extra time to determine max tolerated stretch position and hold DKTC stretch Supine Exercise Name DKTC stretch Reps/Minutes 10SH x 10 Comments Pt reported not having a handout for DKTC stretch hip abd Supine Exercise Name Active Shyam Hip AB Side bilateral Reps/Minutes 15x 2 Comments Cued neutral pelvis and toes towards ceiling or inward Hamstring/LE neural stretch Supine Exercise Name See sitting stretch Hip ER stretch Supine Exercise Name Fig 4 stretch, f/b active stretch Side bilateral Reps/Minutes 4' (60 H x 1 each) Comments good form, cued breath and allow hip relax/sink toward floor Lateral Hip stretch Supine Exercise Name Lateral Hip stretch with foot on opposite knee Side bilateral Reps/Minutes 3' (60 H x 1 each) Comments Extra time for retraining, pt had cramp in L LB w/L hip stretch Piriformis stretch Supine Exercise Name hip IR/ ER seated today Side bilateral Equipment Used supported by BUE Reps/Minutes 30 x3 B Comments good form/response TA Tightening Supine Exercise Name Hands/knees push Side bilateral Equipment Used Red Tball Reps/Minutes 10SH x 10 Comments Extra time for proper PPT to start and discussion of ex positioning. Sitting Exercises HS stretch & neural glide Sitting Exercise Name HS/neural glide stretch Side bilateral Reps/Minutes 2x5 reps Comments Pt needed extra time for review & trng using sup ex handout modified Manual Therapy Treatment Soft Tissue Mobilization L hip Body Location L anterolateral hp Mobilization Type Myofascial Release,Strumming, Trigger Point Release Intensity/Depth Moderate Body Position Supine Self-Care/Home Management Treatment Education Patient Education Home Exercise Program Activities Self-Care/Home Management Activities Issued HEP: DKTC stretch PT-OP-T Assessment and Plan Start: 02/09/22 17:26 Freq: Status: Active Protocol: Document 05/14/22 11:19 LRN (Rec: 05/14/22 12:13 LRN [id number]) Physical Therapy Assessment Goals Four Impairment Bilateral thigh pain Impairment Thigh pain 5-6/10 with occasional 8-9 shooting pain. LEFS is 44 with one question unanswered (40-59% impaired with score 32-47) Short Term Goal (STG) Decrease thigh pain to 2-3/10, with pt able to ambulate with a stable gait and greater ease. 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 04/02/22: Still gets thigh pain when stands for a bit, finds if wt shifts better. 04/06/22: States leg pain gone but having R>L hip jt pain into WB 2-4/10. (04/17/22: Shooting pain resolved with change in diabetic medications; thigh, calf, knee pains are rated 3-6 /10). (04/19/22: Occasional back pain, little pain when sitting down). (04/24/22: Thigh pn 4-6/10; LBP 5/10; Hip pain 4/10) STG Duration 04/01/22 (04/24/22 progressing) Scheduling Representative Goal (LTG) Improve function per LEFS score 48-62 (20-39% impaired) (04/24/22: LEFS with ALL questions answered is 44 (40- 59% impaired, score 32-47) LTG Duration 05/14/22 Two Impairment Pain limiting walking Impairment Pain limiting walking to 15-20 minutes before needing to stop and stretch due to pain. LBP rated 6-8/10. Short Term Goal (STG) Pt will be able to SLS 10 secs or greater for improved balance. (04/17/22: SLS: 23 secs right, 9 secs left; NOTE: Steel isabel and plate in L ankle/lower leg ) STG Duration 04/01/22 (04/17/22: SLS: LLE - Improving; RLE-MET GOAL) Scheduling Representative Goal (LTG) Decrease LBP with walking to tolerated 30 minutes or more walking for exercise on level surface. (04/17/22: LBP is rated 0-7 with walking > 10-15 minutes) (04/24/22: LBP rated 5/10) LTG Duration 05/14/22 (04/24/22: LBP decreased) One Impairment Pt is not consistent on a HEP Short Term Goal (STG) Pt will be educated in self care pain management with use of modalities and proper body mechanics for ADLs and transfers. (02/15/22: Pt educated in proper sup>sit>stand with log roll method & discussed proper body mechanics for picking up objects) (03/01/22: Pt educated in proper body mechanics for ADLs and transfers, and handouts issued). 03/22/22: reviewed seated PF stretch and self STMs to allow relief to walk. STG Duration 04/01/22 (03/29/22: MET GOAL) Assisted Goal (LTG) Independent and consistent with a final self care HEP of back and hip ex's. (02/27/22: HEP issued of hip stretches: fig 4, lateral hip, piriformis). (03/01/22: HEP issued hip flexor stretch). 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 (03/29/22: HEP issued of Hamstring/LE neural stretch) 04/06/22: added supine hip abd, supine resisted clamshell for hip abd strengthening) (04/19/22: HEP: Ankle and knee TB strengthening ex's) (04/24/22: HEP: Added Hamstring/LE neural stretch) (04/26/22: HEP: DKTC stretch, Hands/Knees push with I/S to do sup, sit, stand) (05/03/22: HEP: Hip Adductor stretch-leg on table) LTG Duration 05/14/22 (05/03/22: Progressed ) Assessment Summary Assessment Pt had good relief of pain after STM of her L anterolateral proximal hip. The pt needed much review with her HEP; therefore did not have time to initiate balance ex's. Physical Therapy Plan Frequency and Duration Frequency of Treatment 2x/Week Plan of Care Start Date 02/13/22 Plan of Care End Date 06/18/22 Next Visit Focus/Plan Next Note Type Treatment Note Next Visit Plan (1 visit to [facility]) & new POC needed in May. Pt will try to do her HEP and will resume in May. Assess progress towards improved symmetry of hip mobility on HEP. Review core stab ex in PPT position and progress core strengthening. Initiate walking & balance training. Manual: IT Band, along R tibia; stretching of trunk rotators. Pt to Strengthen Left ankle and knee (to improve SLS and tolerance to walking). Cont: hip abd & Core stab: ( ex: stand shld ext, band walk, hurdles, dynamic gait.). Modailities: US, treat bilateral Bursitis (?sciatic pain). Ther Ex: Core stabilization ( flexion), aerobic conditioning for walking and core stab. If pt gets into the 6-8 wk eating disorder program she will be discharged to her HEP.
--- NOTE | 2022-06-19 17:22 | PT.OTN ---
Current Diagnoses Pain in unspecified hip (06/19/22) Dorsalgia, unspecified (06/19/22) Muscle weakness (generalized) (06/19/22) Other abnormalities of gait and mobility (06/19/22) Physical Therapy Treatment Note PT-OP-A Visit Information Start: 02/09/22 17:26 Freq: Status: Active Protocol: Document 06/19/22 14:32 LRN (Rec: 06/19/22 15:17 LRN [id number]) Out-Patient Physical Therapy Visit Information Visit Information Visit Type Progress Note Visit Note 07/07 after PN Visit Start Time 14:32 Visit Stop Time 15:13 Total Visit Minutes 41 Visit Number 19 Evaluation Information Evaluation Date 02/13/22 Precautions Precautions Type 2 Diabetes mellitus, blood sugar levels unstable, fractured L ankle with isabel in tibia, with plates and screws at L ankle. Record review indicates: Seizure disorder~ 2008, skin cancer ~2013, Obesity 02/08/22 (BMI 30.0-34.9 ) PT-OP-B Current Condition Start: 02/09/22 17:26 Freq: Status: Active Protocol: Document 02/13/22 13:04 LRN (Rec: 02/13/22 15:04 LRN [id number]) Current Condition History of Current Condition Onset Date 09/2020. Problem with walking in 2019. Current Complaints Lower back and bursitis pain, sometime legs give out due to pain, ache. History of Current Condition Has had lower back pain and bilateral bursitis since 2019. Has had bursitis one or two times in the past. Pt doesn't think about her pain and has difficulty identifying her pain intensity. She has tight IT Bands with tenderness noted. Her L leg aches sometimes and with sit to stand sometimes the leg gives out. She sometimes takes IBP. Has been having pains in the buttocks that her spouse thinks is her sciatic nerve. Has midback pain 40-50% of the time. Can't do housework for > 1/2 hr. Leg length dicrepancy with L leg 1 shorter than the R. Lift in L shoe put in 2019 by veneer repairer machine. Prior Treatments and Tests P.T. at [facility] from winter to winter but discontinued due to Covid fears. P.T. with Joesph Dias in Nov 2021, for 1-1.5 months, but was getting an emotional trigger and couldn't continue; therefore wants a female therapist. She states her pain did lessen overall some. She wasn't always consistent with her exercises. X-rays of L/S: Grade 1 L4-L5 degenerative spondylolisthesis , Multilevel degenerative disease, Multilevel facet arthropathy. Developmental History Developmental History Tailbone injury at 18 yo. Treatment Goals Patient/Caregiver Goals Pt goal: Exercise to reduce pain so that it doesn't interrupt her while she walks (Walking 10-15' LB becomes so tight that she needs to stretch out her low back), month ago pain in legs started and would like it to go away, eliminate balance problems. Prior Functional Status Baseline Function- ADL's Independent Baseline Function- Mobility Independent Baseline Function- Gait Before 2018 didn't notice back being a hinderance with hiking, walking. Baseline Function- Other Able to bend down and pick things up without thinking or hesitation 2 yrs ago. Current Functional Impairments (Reported) Functional Limitations- ADL's Must bend down slowly to pick things up. Functional Limitations- Mobility/Gait Brisk walk for only 15-20' Personal Factors Other Personal Factors That May Effect Records indicate an eating Therapy/Recovery disorder, obesity (not morbid) with BMI 32.5. Intake form indicates seizures 2009, arthritis, diabetes II, thyroid disorder. PT-OP-C Subjective Start: 02/09/22 17:26 Freq: Status: Active Protocol: Document 06/19/22 14:32 LRN (Rec: 06/19/22 15:17 LRN [id number]) OP-PT Subjective Patient Comments Patient Comments Hasn't attended therapy because she had been exposed to someone with covid. Periodic pains in the R leg are not happening. Sometimes has done HEP, not daily. R knee has started to hurt sometimes. Patient Questionnaires Lower Extremity Functional Scale LEFS Score 56 LEFS Impairment 20 to 39% Impaired (Score 48- 62) OP-PT Pain Assessment Pain Assessment Grid Paper Pain Assessment Grid Completed Yes Location Thighs Pain Location Details Anterior & Posterior thighs Intensity 0 Scale Used Numeric (0 - 10) Hips Pain Location Details Lateral and posterior hips Intensity 4 Scale Used Numeric (0 - 10) Back Pain Location Details Low back at sacral level Intensity 4 Scale Used Numeric (0 - 10) PT-OP-D Balance Start: 02/09/22 17:26 Freq: Status: Active Protocol: Document 06/19/22 14:32 LRN (Rec: 06/19/22 15:17 LRN [id number]) Balance Tests Single Limb Standing Single Limb- Right 8 Single Limb- Left 9 PT-OP-H Neuro Start: 02/09/22 17:26 Freq: Status: Active Protocol: Document 02/13/22 13:04 LRN (Rec: 02/13/22 15:04 LRN [id number]) Sensation Evaluation Gross Sensation Gross Sensation WNL PT-OP-J Posture/Palpation/Skin Start: 02/09/22 17:26 Freq: Status: Active Protocol: Document 02/13/22 13:04 LRN (Rec: 02/13/22 15:04 LRN [id number]) Posture Evaluation Position Standing Head/C-Spine Posture Forward Head T-Spine Posture Increased Kyphosis Shoulder Posture (L) Elevated Pelvis Posture (L) Rotated Anterior,(R) Rotated Posterior,(R) Iliac Crest Superior Comments Posture Comments L leg in ER, pants left rotated. Sacrum is R rotated Palpation Assessment Location L hip Palpation Location TFL muscle & IT band, Piriformis Palpation Findings Tenderness R hip Palpation Location TFL muscle & IT band, Piriformis Palpation Findings Tenderness Back Palpation Location Across low back at sacral level Palpation Findings Tenderness PT-OP-K Range of Motion Start: 02/09/22 17:26 Freq: Status: Active Protocol: Document 02/13/22 13:04 LRN (Rec: 02/13/22 15:04 LRN [id number]) Lumbar Spine Range of Motion Lumbar Spine Active Degrees Testing Position Standing Flexion 75 Extension 11 Lateral Flexion Left 6 Lateral Flexion Right 13 ROM Limitations Pain Comments Flexion is with 38 deg's hip flexion Extension is with 5 deg's hip extension (with bilateral hamstring pain) Hip Goniometric Range of Motion Hip Right Passive Testing Position Supine Straight Leg Raise 55 Internal Rotation 20 External Rotation 50 Left Passive Testing Position Supine Straight Leg Raise 55 Internal Rotation 10 External Rotation 50 PT-OP-L Special Tests Start: 02/09/22 17:26 Freq: Status: Active Protocol: Document 02/13/22 13:04 LRN (Rec: 02/13/22 15:04 LRN [id number]) Special Tests Lumbar Spine Special Tests Straight Leg Raise Test Results + bilaterally Comments SLR is 55 deg's with hamstring /lower leg pain Hip Special Tests Piriformis Comments Pt did not tolerate test position. PT-OP-M Strength Start: 02/09/22 17:26 Freq: Status: Active Protocol: Document 02/13/22 13:04 LRN (Rec: 02/13/22 15:04 LRN [id number]) Trunk Strength Trunk Manual Muscle Testing Testing Position Supine Core Stabilization Pt was not able to maintain core stability with resistance given to LE's. Hip Strength Hip Manual Muscle Testing Right Comments Pt had difficulty coming to full stance with sit<>stand due to knee pain. Left Comments Pt had difficulty coming to full stance with sit<>stand due to knee pain. PT-OP-Q Treatments Start: 02/09/22 17:26 Freq: Status: Active Protocol: Document 06/19/22 14:32 LRN (Rec: 06/19/22 15:17 LRN [id number]) Therapeutic Exercises Supine Exercises DKTC stretch Supine Exercise Name DKTC stretch Reps/Minutes 10SH x 10 Comments Pt reported not having a handout for DKTC stretch Hamstring/LE neural stretch Supine Exercise Name See sitting stretch Hip ER stretch Supine Exercise Name Fig 4 stretch, f/b active stretch Side bilateral Reps/Minutes 4' (60 H x 1 each) Comments good form, cued breath and allow hip relax/sink toward floor Lateral Hip stretch Supine Exercise Name Lateral Hip stretch with foot on opposite knee Side bilateral Reps/Minutes 3' (60 H x 1 each) Comments Extra time for retraining, pt had cramp in L LB w/L hip stretch Piriformis stretch Supine Exercise Name hip IR/ ER seated today Side bilateral Equipment Used supported by BUE Reps/Minutes 30 x3 B Comments good form/response Self-Care/Home Management Treatment Education Other Education Discussed pt plan of care and goal. Discussed pt proper posturing and possible reasons for the intermittent R hip/LBP associated to posture. PT-OP-T Assessment and Plan Start: 02/09/22 17:26 Freq: Status: Active Protocol: Document 06/19/22 14:32 LRN (Rec: 06/19/22 15:17 LRN [id number]) Physical Therapy Assessment Rehab Potential Rehabilitation Potential Good Evaluation Complexity Number of Personal Factors/Comorbidities 1-2 Number of Body Systems Impaired 4 or More Clinical Presentation at Evaluation Evolving Impairments Impairments Balance,Gait,Pain,Posture,ROM, Soft Tissue Mobility,Strength Goals Four Impairment Bilateral thigh pain Impairment Thigh pain 5-6/10 with occasional 8-9 shooting pain. LEFS is 44 with one question unanswered (40-59% impaired with score 32-47) Short Term Goal (STG) Decrease thigh pain to 2-3/10, with pt able to ambulate with a stable gait and greater ease. 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 04/02/22: Still gets thigh pain when stands for a bit, finds if wt shifts better. 04/06/22: States leg pain gone but having R>L hip jt pain into WB 2-4/10. (04/17/22: Shooting pain resolved with change in diabetic medications; thigh, calf, knee pains are rated 3-6 /10). (04/19/22: Occasional back pain, little pain when sitting down). (04/24/22: Thigh pn 4-6/10; LBP 5/10; Hip pain 4/10) (06/19/22: No thigh pain or sharp shooting pain. Has tightness in IT Band). STG Duration 04/01/22 (06/19/22 MET GOAL) [employer] Goal (LTG) Improve function per LEFS score 48-62 (20-39% impaired) (04/24/22: LEFS with ALL questions answered is 44 (40- 59% impaired, score 32-47). (06/19/22: Score is 56, 20-39% impaired). LTG Duration 05/14/22 (06/19/22: MET GOAL) Three Impairment Difficulty falling asleep at night Short Term Goal (STG) Pt able to tolerate lying on her sides for short periods of time without severe pain. (04/17/22: Able to sleep on sides up to 5 hrs-waking due to bladder). STG Duration 04/01/22 (04/17/22: MET GOAL) [employer] Goal (LTG) Decrease amount of bilateral hip pain when lying down at night with pt able to go to sleep with ease. (04/17/22: Pt able to fall to sleep without reference to pain, difficulty falling to sleep because of active mind). LTG Duration 05/14/22 (04/17/22: MET GOAL) Two Impairment Pain limiting walking Impairment Pain limiting walking to 15-20 minutes before needing to stop and stretch due to pain. LBP rated 6-8/10. Short Term Goal (STG) Pt will be able to SLS 10 secs or greater for improved balance. 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 (04/17/22: LBP is rated 0-7 with walking > 10-15 minutes) (04/24/22: LBP rated 5/10) (: Walked 10-15 and back without having to stop and stretch. LBP rated 3-4/10 and mid back pain 4/10. In mid March on new blood sugar medication). LTG Duration 05/14/22 (06/19/22: MET GOAL) One Impairment Pt is not consistent on a HEP Short Term Goal (STG) Pt will be educated in self care pain management with use of modalities and proper body mechanics for ADLs and transfers. (02/15/22: Pt educated in proper sup>sit>stand with log roll method & discussed proper body mechanics for picking up objects) (03/01/22: Pt educated in proper body mechanics for ADLs and transfers, and handouts issued). 03/22/22: reviewed seated PF stretch and self STMs to allow relief to walk. 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 (02/27/22: HEP issued of hip stretches: fig 4, lateral hip, piriformis). (03/01/22: HEP issued hip flexor stretch). 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 (03/29/22: HEP issued of Hamstring/LE neural stretch) 04/06/22: added supine hip abd, supine resisted clamshell for hip abd strengthening) (04/19/22: HEP: Ankle and knee TB strengthening ex's) (04/24/22: HEP: Added Hamstring/LE neural stretch) (04/26/22: HEP: DKTC stretch, Hands/Knees push with I/S to do sup, sit, stand) (05/03/22: HEP: Hip Adductor stretch-leg on table) LTG Duration 08/18/22 (05/03/22: Progressed ) Progress Towards Goals Progress Comments STG & LTG #4 MET. LTG #2 MET. Assessment Summary Assessment Pt returns after a month delay in therapy due to Covid 19 exposure. She had not been able to be consistent with her HEP. She has improved in her function per LEFS score of 56 (was 44) indicating lessening of impairment from 40-59% to 20-39% impaired. Pt demonstrates improvements in all areas except for SLS balance; therefore pt would benefit from continue physical therapy for 1-2 months to improve balance for safety with gait, hip mobility and tolerance to walking. Physical Therapy Plan Frequency and Duration Frequency of Treatment 2x/Week Plan of Care Start Date 06/19/22 Plan of Care End Date 08/18/22 Therapeutic Interventions Therapeutic Interventions Gait Training,Home Exercise Program,Joint Mobilizations, Manual Therapy,Neuromuscular Re-education,Patient/Caregiver Education,Self-Care/Home Management,Soft Tissue Mobilization,Therapeutic Activities,Therapeutic Exercises Modalities Cold Pack/Ice Massage,Electric Stimulation,Hot Packs, Ultrasound Next Visit Focus/Plan Next Note Type Treatment Note Next Visit Plan Pt in KX next visit. Assess progress towards improved symmetry of hip mobility on HEP. Review core stab ex in PPT position and progress core strengthening. Initiate balance training and progress walking training and tolerance. Add Exer: active stretching of trunk rotators. Pt to Strengthen Left ankle and knee (to improve SLS and tolerance to walking). Cont: hip abd & Core stab: ( ex: stand shld ext, band walk, hurdles, dynamic gait.). Modailities: US, treat bilateral Bursitis (?sciatic pain). Ther Ex: Core stabilization ( flexion), aerobic conditioning for walking and core stab. If pt gets into the 6-8 wk eating disorder program she will be discharged to her [facility].
--- NOTE | 2022-08-07 08:23 | PT-OP ANOTE ---
Msg left informing pt of discharge and requesting call back to discuss any questions or concerns by end of day.
--- NOTE | 2022-08-13 18:11 | PT.OPDS ---
Current Diagnoses Pain in unspecified hip (06/19/22) Dorsalgia, unspecified (06/19/22) Muscle weakness (generalized) (06/19/22) Other abnormalities of gait and mobility (06/19/22) Visit Care Team Role Provider Type Joesph Martinez MD Attending Provider Physician Family Provider Primary Care Provider Referring Provider Specialty: Internal Medicine Address: [address] [place] [address], [address], [address] Email: [email or web address] Visit Number Visit Number [id number] Discharge Summary PT-OP-B Current Condition Start: 02/09/22 17:26 Freq: Status: Active Protocol: Document 02/13/22 13:04 LRN (Rec: 02/13/22 15:04 LRN [id number]) Current Condition History of Current Condition Onset Date 09/2020. Problem with walking in 2019. Current Complaints Lower back and bursitis pain, sometime legs give out due to pain, ache. History of Current Condition Has had lower back pain and bilateral bursitis since 2019. Has had bursitis one or two times in the past. Pt doesn't think about her pain and has difficulty identifying her pain intensity. She has tight IT Bands with tenderness noted. Her L leg aches sometimes and with sit to stand sometimes the leg gives out. She sometimes takes IBP. Has been having pains in the buttocks that her spouse thinks is her sciatic nerve. Has midback pain 40-50% of the time. Can't do housework for > 1/2 hr. Leg length dicrepancy with L leg 1 shorter than the R. Lift in L shoe put in 2019 by form builder helper. Prior Treatments and Tests P.T. at [facility] from winter to winter but discontinued due to Covid fears. P.T. with Joesph Dias in Nov 2021, for 1-1.5 months, but was getting an emotional trigger and couldn't continue; therefore wants a female therapist. She states her pain did lessen overall some. She wasn't always consistent with her exercises. X-rays of L/S: Grade 1 L4-L5 degenerative spondylolisthesis , Multilevel degenerative disease, Multilevel facet arthropathy. Developmental History Developmental History Tailbone injury at 18 yo. Treatment Goals Patient/Caregiver Goals Pt goal: Exercise to reduce pain so that it doesn't interrupt her while she walks (Walking 10-15' LB becomes so tight that she needs to stretch out her low back), month ago pain in legs started and would like it to go away, eliminate balance problems. Prior Functional Status Baseline Function- ADL's Independent Baseline Function- Mobility Independent Baseline Function- Gait Before 2018 didn't notice back being a hinderance with hiking, walking. Baseline Function- Other Able to bend down and pick things up without thinking or hesitation 2 yrs ago. Current Functional Impairments (Reported) Functional Limitations- ADL's Must bend down slowly to pick things up. Functional Limitations- Mobility/Gait Brisk walk for only 15-20' Personal Factors Other Personal Factors That May Effect Records indicate an eating Therapy/Recovery disorder, obesity (not morbid) with BMI 32.5. Intake form indicates seizures 2009, arthritis, diabetes II, thyroid disorder. PT-OP-C Subjective Start: 02/09/22 17:26 Freq: Status: Active Protocol: Document 06/19/22 14:32 LRN (Rec: 06/19/22 15:17 LRN [id number]) OP-PT Subjective Patient Comments Patient Comments Hasn't attended therapy because she had been exposed to someone with covid. Periodic pains in the R leg are not happening. Sometimes has done HEP, not daily. R knee has started to hurt sometimes. Patient Questionnaires Lower Extremity Functional Scale LEFS Score 56 LEFS Impairment 20 to 39% Impaired (Score 48- 62) OP-PT Pain Assessment Pain Assessment Grid Paper Pain Assessment Grid Completed Yes Location Thighs Pain Location Details Anterior & Posterior thighs Intensity 0 Scale Used Numeric (0 - 10) Hips Pain Location Details Lateral and posterior hips Intensity 4 Scale Used Numeric (0 - 10) Back Pain Location Details Low back at sacral level Intensity 4 Scale Used Numeric (0 - 10) PT-OP-D Balance Start: 02/09/22 17:26 Freq: Status: Active Protocol: Document 06/19/22 14:32 LRN (Rec: 06/19/22 15:17 LRN [id number]) Balance Tests Single Limb Standing Single Limb- Right 8 Single Limb- Left 9 PT-OP-H Neuro Start: 02/09/22 17:26 Freq: Status: Active Protocol: Document 02/13/22 13:04 LRN (Rec: 02/13/22 15:04 LRN [id number]) Sensation Evaluation Gross Sensation Gross Sensation WNL PT-OP-J Posture/Palpation/Skin Start: 02/09/22 17:26 Freq: Status: Active Protocol: Document 02/13/22 13:04 LRN (Rec: 02/13/22 15:04 LRN [id number]) Posture Evaluation Position Standing Head/C-Spine Posture Forward Head T-Spine Posture Increased Kyphosis Shoulder Posture (L) Elevated Pelvis Posture (L) Rotated Anterior,(R) Rotated Posterior,(R) Iliac Crest Superior Comments Posture Comments L leg in ER, pants left rotated. Sacrum is R rotated Palpation Assessment Location L hip Palpation Location TFL muscle & IT band, Piriformis Palpation Findings Tenderness R hip Palpation Location TFL muscle & IT band, Piriformis Palpation Findings Tenderness Back Palpation Location Across low back at sacral level Palpation Findings Tenderness PT-OP-K Range of Motion Start: 02/09/22 17:26 Freq: Status: Active Protocol: Document 02/13/22 13:04 LRN (Rec: 02/13/22 15:04 LRN [id number]) Lumbar Spine Range of Motion Lumbar Spine Active Degrees Testing Position Standing Flexion 75 Extension 11 Lateral Flexion Left 6 Lateral Flexion Right 13 ROM Limitations Pain Comments Flexion is with 38 deg's hip flexion Extension is with 5 deg's hip extension (with bilateral hamstring pain) Hip Goniometric Range of Motion Hip Right Passive Testing Position Supine Straight Leg Raise 55 Internal Rotation 20 External Rotation 50 Left Passive Testing Position Supine Straight Leg Raise 55 Internal Rotation 10 External Rotation 50 PT-OP-L Special Tests Start: 02/09/22 17:26 Freq: Status: Active Protocol: Document 02/13/22 13:04 LRN (Rec: 02/13/22 15:04 LRN [id number]) Special Tests Lumbar Spine Special Tests Straight Leg Raise Test Results + bilaterally Comments SLR is 55 deg's with hamstring /lower leg pain Hip Special Tests Piriformis Comments Pt did not tolerate test position. PT-OP-M Strength Start: 02/09/22 17:26 Freq: Status: Active Protocol: Document 02/13/22 13:04 LRN (Rec: 02/13/22 15:04 LRN [id number]) Trunk Strength Trunk Manual Muscle Testing Testing Position Supine Core Stabilization Pt was not able to maintain core stability with resistance given to LE's. Hip Strength Hip Manual Muscle Testing Right Comments Pt had difficulty coming to full stance with sit<>stand due to knee pain. Left Comments Pt had difficulty coming to full stance with sit<>stand due to knee pain. PT-OP-T Assessment and Plan Start: 02/09/22 17:26 Freq: Status: Active Protocol: Document 08/07/22 08:26 LRN (Rec: 08/07/22 08:32 LRN [id number]) Physical Therapy Assessment Goals Four Impairment Bilateral thigh pain Impairment Thigh pain 5-6/10 with occasional 8-9 shooting pain. LEFS is 44 with one question unanswered (40-59% impaired with score 32-47) Short Term Goal (STG) Decrease thigh pain to 2-3/10, with pt able to ambulate with a stable gait and greater ease. 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 04/02/22: Still gets thigh pain when stands for a bit, finds if wt shifts better. 04/06/22: States leg pain gone but having R>L hip jt pain into WB 2-4/10. (04/17/22: Shooting pain resolved with change in diabetic medications; thigh, calf, knee pains are rated 3-6 /10). (04/19/22: Occasional back pain, little pain when sitting down). (04/24/22: Thigh pn 4-6/10; LBP 5/10; Hip pain 4/10) (06/19/22: No thigh pain or sharp shooting pain. Has tightness in IT Band). STG Duration 04/01/22 (06/19/22 MET GOAL) Nursing Home Goal (LTG) Improve function per LEFS score 48-62 (20-39% impaired) (04/24/22: LEFS with ALL questions answered is 44 (40- 59% impaired, score 32-47). (06/19/22: Score is 56, 20-39% impaired). LTG Duration 05/14/22 (06/19/22: MET GOAL) Three Impairment Difficulty falling asleep at night Short Term Goal (STG) Pt able to tolerate lying on her sides for short periods of time without severe pain. (04/17/22: Able to sleep on sides up to 5 hrs-waking due to bladder). STG Duration 04/01/22 (04/17/22: MET GOAL) Nursing Home Goal (LTG) Decrease amount of bilateral hip pain when lying down at night with pt able to go to sleep with ease. (04/17/22: Pt able to fall to sleep without reference to pain, difficulty falling to sleep because of active mind). LTG Duration 05/14/22 (04/17/22: MET GOAL) Two Impairment Pain limiting walking Impairment Pain limiting walking to 15-20 minutes before needing to stop and stretch due to pain. LBP rated 6-8/10. Short Term Goal (STG) Pt will be able to SLS 10 secs or greater for improved balance. (04/17/22: SLS: 23 secs right, 9 secs left; NOTE: Steel isabel and plate in L ankle/lower leg ) (06/19/22: SLS: 8 sec right, 9 secs left) STG Duration 08/18/22 (04/17/22: SLS: LLE - Improving; RLE-MET GOAL) Nursing Home Goal (LTG) Decrease LBP with walking to tolerated 30 minutes or more walking for exercise on level surface. (04/17/22: LBP is rated 0-7 with walking > 10-15 minutes) (04/24/22: LBP rated 5/10) (: Walked 10-15 and back without having to stop and stretch. LBP rated 3-4/10 and mid back pain 4/10. In mid March on new blood sugar medication). LTG Duration 05/14/22 (06/19/22: MET GOAL) One Impairment Pt is not consistent on a HEP Short Term Goal (STG) Pt will be educated in self care pain management with use of modalities and proper body mechanics for ADLs and transfers. (02/15/22: Pt educated in proper sup>sit>stand with log roll method & discussed proper body mechanics for picking up objects) (03/01/22: Pt educated in proper body mechanics for ADLs and transfers, and handouts issued). 03/22/22: reviewed seated PF stretch and self STMs to allow relief to walk. STG Duration 04/01/22 (03/29/22: MET GOAL) Transportation Coordinator Goal (LTG) Independent and consistent with a final self care HEP of back and hip ex's. (02/27/22: HEP issued of hip stretches: fig 4, lateral hip, piriformis). (03/01/22: HEP issued hip flexor stretch). 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 (03/29/22: HEP issued of Hamstring/LE neural stretch) 04/06/22: added supine hip abd, supine resisted clamshell for hip abd strengthening) (04/19/22: HEP: Ankle and knee TB strengthening ex's) (04/24/22: HEP: Added Hamstring/LE neural stretch) (04/26/22: HEP: DKTC stretch, Hands/Knees push with I/S to do sup, sit, stand) (05/03/22: HEP: Hip Adductor stretch-leg on table) LTG Duration 08/18/22 (08/06/22: PARTIALLY MET GOAL) Assessment Summary Assessment Pt was last seen 06/19/22, at that time she had not been consistent with her HEP. With testing she showed overall improvement in her function ( LEFS score 56, was 44) indicating lessening of impairment from 40-59% to 20- 39%. Pt demonstrated improvement in all areas except for SLS balance. The pt has failed to return for continuation of therapy to improve balance for safety with gait, hip mobility and tolerance to walking. She was not able to be reached by phone; therefore the pt is being discharged from therapy due to lack of attendance. Physical Therapy Plan Discharge Physical Therapy Discharge Reasons No Longer Attending PT Discharge Comments Thank you for your referral.
== END 2022-08-14 12:21 | disposition home or self-care (01) ==
LOC: PHYS 14:30
PROVIDERS: Family Provider Internal Medicine; PCP Internal Medicine; Referring Provider Internal Medicine; Visit Provider Internal Medicine
DX: M54.9 Dorsalgia, unspecified (principal); M25.559 Pain in unspecified hip; M62.81 Muscle weakness (generalized); R26.89 Other abnormalities of gait and mobility
CPT/HCPCS: 97110; 97112; 97140; 97162; 97535

== ENCOUNTER → 2022-09-11 08:13 | Outpatient (CLI) | payer MEDICARE, SELFPAY ==
[2022-09-11 09:10] LABS: Hemoglobin A1C% w Est Avg Glu 8.5 % (4.0-6.0)
[2022-09-11 09:27] LABS: Alanine Aminotransferase 22 IU/L (<35); Albumin 4.1 g/dL (3.5-5.0); Albumin Globulin Ratio 1.4 (1.0-2.8); Alkaline Phosphatase 100 U/L (38-126); Aspartate Aminotransferase 18 IU/L (14-36); BUN Creatinine Ratio 44.4 (6-22); Bilirubin Total 0.4 mg/dL (0.2-1.3); Blood Urea Nitrogen 28 mg/dL (7-17); Calcium 9.2 mg/dL (8.4-10.2); Carbon Dioxide 21 mmol/L (22-32); Chloride 107 mmol/L (98-107); Cholesterol 173 mg/dL (140-199); Estimated Glomerular Filt Rate > 60 mL/min (>60); Globulin 2.9 g/dL (1.7-4.1); Glucose 182 mg/dL (80-110); HDL Cholesterol 45 mg/dL (40-60); HEMOLYSIS < 15 (0-50); LDL Cholesterol Calculated 113 mg/dL (<100); Potassium 4.4 mmol/L (3.4-5.1); Sodium 139 mmol/L (137-145); Triglycerides 75 mg/dL (35-150)
[2022-09-11 09:45] LABS: Thyroid Stimulating Hormone 3.41 uIU/mL (0.47-4.68)
[2022-09-11 10:15] LABS: Vitamin B12 846 pg/mL (239-931)
[2022-09-11 10:24] LABS: Creatinine Urine Random 49.5 mg/dL
[2022-09-11 10:26] LABS: Microalbumin Urine Random < 0.6 mg/dL (0-1.6)
== END ==
PROVIDERS: Family Provider Internal Medicine; PCP Internal Medicine; Referring Provider Nurse Practitioner Family; Visit Provider Nurse Practitioner Family
DX: E11.9 Type 2 diabetes mellitus without complications (principal); Z79.4 Long term (current) use of insulin
CPT/HCPCS: 36415; 80053; 80061; 82043; 82570; 82607; 83036; 84439; 84443

== ENCOUNTER → 2022-10-14 15:07 | Outpatient (CLI) | payer MEDICARE, SELFPAY ==
[2022-10-14 16:31] LABS: Influenza A - CEPHEID Flu A NEGATIVE (NEGATIVE); Influenza B - CEPHEID Flu B NEGATIVE (NEGATIVE); Respiratory Syncytial Virus POSITIVE (Negative)
[2022-10-14 16:36] LABS: COVID-19 CEPHEID 4-PLEX PCR Negative (Negative)
== END ==
PROVIDERS: Family Provider Internal Medicine; PCP Internal Medicine; Visit Provider Nurse Practitioner Family
DX: R05.1 Acute cough (principal); Z20.822 Contact with and (suspected) exposure to COVID-19
CPT/HCPCS: 0241U

== ENCOUNTER → 2022-10-19 14:31 | Outpatient (CLI) | payer MEDICARE, SELFPAY | PROVIDERS: Family Provider Internal Medicine; PCP Internal Medicine; Referring Provider Family Medicine; Visit Provider Family Medicine | DX: R07.9 Chest pain, unspecified (principal) | CPT/HCPCS: 93005 ==

== ENCOUNTER → 2022-12-04 08:04 | Outpatient (CLI) | payer MEDICARE, SELFPAY ==
[2022-12-04 09:55] LABS: Hemoglobin A1C% w Est Avg Glu 7.8 % (4.0-6.0)
[2022-12-04 10:02] LABS: BUN Creatinine Ratio 36.1 (6-22); Blood Urea Nitrogen 22 mg/dL (7-17); Calcium 9.3 mg/dL (8.4-10.2); Carbon Dioxide 22 mmol/L (22-32); Chloride 101 mmol/L (98-107); Estimated Glomerular Filt Rate > 60 mL/min (>60); Glucose 153 mg/dL (80-110); HEMOLYSIS < 15 (0-50); Potassium 4.5 mmol/L (3.4-5.1); Sodium 138 mmol/L (137-145)
[2022-12-04 10:20] LABS: Free T4, Direct Thyroxine 1.43 ng/dL (0.78-2.19)
[2022-12-04 10:34] LABS: Thyroid Stimulating Hormone 4.59 uIU/mL (0.47-4.68)
[2022-12-04 10:51] LABS: Vitamin B12 > 1000 pg/mL (239-931)
== END ==
PROVIDERS: Family Provider Internal Medicine; PCP Internal Medicine; Referring Provider Nurse Practitioner Family; Visit Provider Nurse Practitioner Family
DX: E11.65 Type 2 diabetes mellitus with hyperglycemia (principal); Z79.4 Long term (current) use of insulin; E53.8 Deficiency of other specified B group vitamins
CPT/HCPCS: 36415; 80048; 82607; 83036; 84439; 84443

== ENCOUNTER → 2023-02-18 09:09 | Outpatient (CLI) | payer MEDICARE, SELFPAY ==
--- NOTE | 2023-02-18 09:11 | DI.RAD.S_ITS ---
PROCEDURE: XR SHOULDER RT MIN 2V INDICATIONS: Right Shoulder Pain TECHNIQUE: 3 views of the shoulder were acquired. COMPARISON: None. FINDINGS: Bones: No fractures or dislocations. Moderate acromioclavicular joint and glenohumeral joint osteoarthritic changes are seen with joint space narrowing, subchondral sclerosis and marginal osteophyte formation. No suspicious bony lesions. Visualized ribs appear intact. Soft tissues: No suspicious soft tissue calcifications. IMPRESSION: Moderate right shoulder joint osteoarthritis. No shoulder fracture or dislocation. No gross soft tissue abnormalities. Dictated by: Suresh Balderrama M.D. on 02/18/2023 at 11:11 Approved by: Suresh Balderrama M.D. on 02/18/2023 at 11:11
--- NOTE | 2023-02-18 09:11 | DI.RAD.S_ITS ---
PROCEDURE: XR SHOULDER LT MIN 2V INDICATIONS: Left Shoulder Pain TECHNIQUE: 3 views of the shoulder were acquired. COMPARISON: None. FINDINGS: Bones: No fractures or dislocations. Moderate acromioclavicular joint and glenohumeral joint osteoarthritic changes are seen. No suspicious bony lesions. Visualized ribs appear intact. Soft tissues: No suspicious soft tissue calcifications. IMPRESSION: Moderate left shoulder joint osteoarthritis. No shoulder fracture or dislocation. No gross soft tissue abnormalities. Dictated by: Suresh Balderrama M.D. on 02/18/2023 at 10:59 Approved by: Suresh Balderrama M.D. on 02/18/2023 at 11:10
--- NOTE | 2023-02-18 09:11 | DI.RAD.S_ITS ---
PROCEDURE: XR CERVICAL SPINE 4V OR 5V INDICATIONS: neck pain TECHNIQUE: 5 views of the cervical spine acquired. COMPARISON: None. FINDINGS: Bones: No fractures or dislocations to the T1 level. Loss of disc height, degenerative endplate changes and bilateral facet hypertrophic changes are noted throughout cervical spine. Oblique images demonstrate bilateral bony foraminal stenosis at C4-5 through C6-7 levels. Soft tissues: No prevertebral soft tissue swelling. IMPRESSION: Degenerative disc disease throughout cervical spine with suggestion of bilateral bony foraminal stenosis at C4-5 through C6-7 levels. No acute fracture or dislocation. Dictated by: Suresh Balderrama M.D. on 02/18/2023 at 10:46 Approved by: Suresh Balderrama M.D. on 02/18/2023 at 10:52
--- NOTE | 2023-02-18 09:11 | DI.RAD.S_ITS ---
PROCEDURE: XR LUMBAR SPINE MIN 4V INDICATIONS: Low Back Pain TECHNIQUE: 5 views of the lumbar spine were acquired, including bilateral oblique views. COMPARISON: None. FINDINGS: Bones: 5 nonrib-bearing vertebrae are present. Degenerative endplate changes are noted throughout lumbar spine most notably at L5-S1 levels. There is 8 mm anterolisthesis of L4 on L5. No vertebral body compression fractures. No suspicious bony lesions. Soft tissues: Overlying bowel gas pattern is normal. No suspicious soft tissue calcifications. Oblique images: No gross pars defects. IMPRESSION: 8 mm anterolisthesis of L4 on L5. No acute compression fracture. Degenerative disc disease throughout lumbar spine. No gross pars defects. Dictated by: Suresh Balderrama M.D. on 02/18/2023 at 10:58 Approved by: Suresh Balderrama M.D. on 02/18/2023 at 10:59
== END ==
PROVIDERS: Family Provider Internal Medicine; PCP Internal Medicine; Referring Provider Anesthesiology; Visit Provider Anesthesiology
DX: M19.011 Primary osteoarthritis, right shoulder (principal); M19.012 Primary osteoarthritis, left shoulder; M50.30 Other cervical disc degeneration, unspecified cervical region; M43.16 Spondylolisthesis, lumbar region; M51.36 Other intervertebral disc degeneration, lumbar region; M51.37 Other intervertebral disc degeneration, lumbosacral region; M25.512 Pain in left shoulder; M25.511 Pain in right shoulder; M54.9 Dorsalgia, unspecified; M54.50 Low back pain, unspecified; M25.551 Pain in right hip; M25.552 Pain in left hip; M70.61 Trochanteric bursitis, right hip; M70.62 Trochanteric bursitis, left hip
CPT/HCPCS: 72050; 72110; 73030; 99214

== ENCOUNTER → 2023-02-27 07:55 | Outpatient (CLI) | payer MEDICARE, SELFPAY ==
[2023-02-27 10:03] LABS: BUN Creatinine Ratio 32.3 (6-22); Blood Urea Nitrogen 21 mg/dL (7-17); Calcium 8.9 mg/dL (8.4-10.2); Carbon Dioxide 22 mmol/L (22-32); Chloride 105 mmol/L (98-107); Estimated Glomerular Filt Rate > 60 mL/min (>60); Glucose 145 mg/dL (80-110); HEMOLYSIS < 15 (0-50); Potassium 4.3 mmol/L (3.4-5.1); Sodium 137 mmol/L (137-145)
[2023-02-28 15:51] LABS: Labcorp Hemoglobin (Hb) A1c 7.5 % (4.8-5.6)
== END ==
PROVIDERS: Family Provider Internal Medicine; PCP Internal Medicine; Referring Provider Nurse Practitioner Family; Visit Provider Nurse Practitioner Family
DX: E11.65 Type 2 diabetes mellitus with hyperglycemia (principal); Z79.4 Long term (current) use of insulin
CPT/HCPCS: 36415; 80048; 83036

== ENCOUNTER 2023-03-30 19:27 | Emergency (ER) | payer MEDICARE, SELFPAY ==
[2023-03-30 19:48] VITALS: BP 149/67; PULSE 84; RESP 18; TEMP 36.6; O2SAT 98; BMI 31.4
--- NOTE | 2023-03-30 20:22 | ED_ITS ---
HPI - Back Pain/Injury General Chief Complaint: Back Pain/Injury Stated Complaint: Sent by [facility], back pain, digestive issues Time Seen by Provider: 03/30/23 20:05 Source: patient History of Present Illness HPI Narrative: 72F nonsmoker with history of diabetes, hypothyroid, and chronic back pain presents at the request of the walk-in clinic for evaluation of a few weeks of thoracic back pain and belching. She denies dizziness, weakness or lightheadedness. She has no chest pain or shortness of breath. She denies nausea, vomiting or urinary complaints. She denies loss of control of bowel or bladder, use of blood thinners, lower extremity weakness or footdrop. She denies trauma or injury. She denies dietary change or new medications but is concerned that her symptoms maybe related to consequences of taking Ozempic. She had been reading the side effects and noted that serious complications including pancreatitis, gallbladder disease can be attributed Related Data Home Medications Medication Instructions Recorded Confirmed ResMed AirSense 10 Auto 07/11/22 03/30/23 cyanocobalamin (vitamin B-12) 500 mcg IM .Q2WEEK 09/18/22 03/30/23 1,000 mcg/mL injection solution flash glucose scanning reader 09/18/22 03/30/23 (Macu[employer]ix Vandana 2 [place]) semaglutide 0.25 mg or 0.5 mg (2 0.5 mg SUBCUT QWEEK 01/15/23 03/30/23 mg/1.5 mL) subcutaneous pen injector (Ozempic) Previous Rx's Medication Instructions Recorded insulin detemir U-100 100 unit/mL 35 unit (0.35 mL) SUBCUT BID #45 mL 02/20/22 (3 mL) subcutaneous pen (Levemir FlexTouch U-100 Insulin) insulin aspart U-100 100 unit/mL See Rx Instructions SUBCUT 07/20/22 (3 mL) subcutaneous pen (Novolog .COMPLEX #15 mL FlexPen U-100 Insulin aspart) levothyroxine 150 mcg tablet 150 mcg PO DAILY #90 tabs 07/20/22 zolpidem 10 mg tablet 5 mg PO BEDTIME PRN insomnia #45 03/22/23 tabs Allergies Allergy/AdvReac Type Severity Reaction Status Date / Time dulaglutide [From [facility]] Allergy rash Verified 03/30/23 19:48 glipizide AdvReac Intermediate leg pain Verified 03/30/23 19:48 metformin AdvReac Intermediate Diarrhea Verified 03/30/23 19:48 empagliflozin AdvReac Mild yeast Verified 03/30/23 19:48 [From [facility]] infection synthetic codeine AdvReac Nausea Uncoded 03/30/23 19:48 Review of Systems Review of Systems Narrative: GENERAL: See HPI HEENT: Denies sinus pain, ear pain, sore throat, difficulty swallowing, dizziness. RESPIRATORY: Denies dyspnea, cough, wheezing, hemoptysis, sputum. CARDIOVASCULAR: Denies chest pain, palpitations, orthopnea, edema, GASTROINTESTINAL: See HPI : Denies dysuria, frequency, incontinence, hematuria, urinary retention. MUSCULOSKELETAL: See HPI SKIN: Denies rash, skin lesions, or other NEUROLOGIC: Denies weakness, headache, numbness, change in speech, confusion, seizures, incoordination. PSYCHIATRIC: No concerning psychosocial issues. 12 point review of systems is negative except for those stated above Patient History Medical History Acquired hypothyroidism (~1998) Anogenital lichen sclerosus Arthritis of carpometacarpal (CMC) joint of left thumb Carpal tunnel syndrome Chicken pox (~1954) Chronic back pain Fractures (~2003) Greater trochanteric bursitis of both hips Hip pain Measles (~1950) Mumps (~1950) Neck pain Obesity (BMI 30.0-34.9) Plantar warts (~1959) Pneumonia Seborrheic dermatitis Seizure disorder (~2008) Shoulder pain Skin cancer (~2013) Sleep apnea in adult (~2013) Type 2 diabetes mellitus (~2003) Surgical History Anesthesia History of ankle surgery (~2003) History of ectopic (~1976) S/P cataract extraction (~2016) S/P tonsillectomy and adenoidectomy (~1955) Family History Father History of heart disease Sister Cancer Sister Diabetes mellitus Grandmother Stroke Grandmother History of heart disease Social History Smoking Status: Never smoker Smoking Status: Never smoker alcohol intake frequency: holidays/special occasions only Substance Use Type: does not use Exam Narrative Exam Narrative: GENERAL: [72] year old patient appears stated age. Well-developed patient, in mild distress. HEAD: Atraumatic. Normocephalic. EYES: Pupils equal round and reactive. Extraocular motions intact. No scleral icterus. No injection or drainage. ENT: Nose without bleeding, purulent drainage. Throat without erythema, tonsillar hypertrophy or exudate. Airway patent. NECK: Trachea midline. Non tender CARDIOVASCULAR: Regular rate and rhythm without murmurs, gallops, or rubs. RESPIRATORY: Clear to auscultation. Breath sounds equal bilaterally. No wheezes, rales, or rhonchi. GASTROINTESTINAL: Abdomen soft, non-tender, nondistended. Bowel sounds present in all 4 quadrants, perhaps increased EXTREMITIES: No edema or joint tenderness. BACK: drying machine tender but free of any obvious external abnormalities. Patient exam notes decreased range of motion and muscle spasm, but no CVA tenderness, or vertebral point tenderness. There are no symptoms of cauda equina such as saddle anesthesia, and decreased reflexes, decreased sensation or strength. NEURO: AOx3. SKIN: No rash or erythema of visible areas Initial Vital Signs Initial Vital Signs: Vital Signs Temperature 97.9 F 03/30/23 19:48 Pulse Rate 84 03/30/23 19:48 Respiratory Rate 18 03/30/23 19:48 Blood Pressure 149/67 H 03/30/23 19:48 Pulse Oximetry 98 03/30/23 19:48 Oxygen Delivery Method Room Air 03/30/23 19:48 Course Orders Ordered: Discontinued Medications Ondansetron HCl (Ondansetron 4 Mg Odt) 4 mg PO NOW PRN PRN Reason: Nausea And Vomiting Ondansetron HCl (Ondansetron 4 Mg/2 Ml Inj) 4 mg IV NOW PRN PRN Reason: Nausea And Vomiting Vital Signs Vital signs: Vital Signs - 8 hr 03/30/23 19:48 Temperature 97.9 F Pulse Rate 84 Respiratory Rate 18 Blood Pressure 149/67 H Pulse Oximetry 98 Oxygen Delivery Method Room Air MDM - Back Pain/Injury Lab Data 03/30/23 20:20 03/30/23 20:20 Labs: Lab Results 03/30/23 03/30/23 03/30/23 Range/Units 20:01 20:20 20:20 WBC 11.9 H (4.5-11.0) X10^3/uL RBC 4.56 (4.0-5.2) X10^6/uL Hgb 13.5 (12.0-16.0) g/dL Hct 39.2 (36-46) % MCV 85.9 (80-100) fL MCH 29.7 (26-34) PG MCHC 34.6 (30-36) % RDW 13.6 (11.6-14.8) % Plt Count 323 (150-400) X10^3/uL Neut % (Auto) 76.8 H (50-75) % Lymph % (Auto) 16.1 L (25-40) % [place] % (Auto) 4.3 (3-14) % Eos % (Auto) 2.2 (2-4) % Baso % (Auto) 0.6 (0-2) % Neut # (Auto) 9200 H (6938-4274) /uL Lymph # (Auto) 1900 (2533-2063) /uL [place] # (Auto) 500 (0-900) /uL Eos # (Auto) 300 (0-450) /uL Baso # (Auto) 100 (0-100) /uL Sodium 136 L (137-145) mmol/L Potassium 4.2 (3.4-5.1) mmol/L Chloride 101 (98-107) mmol/L Carbon Dioxide 23 (22-32) mmol/L BUN 22 H (7-17) mg/dL Creatinine 0.65 (0.52-1.04) mg/dL Estimated GFR > 60 (>60) mL/min BUN/Creatinine Ratio 33.8 H (6-22) Glucose 203 H (80-110) mg/dL Calcium 9.5 (8.4-10.2) mg/dL Total Bilirubin 0.5 (0.2-1.3) mg/dL AST 22 (14-36) IU/L ALT 24 (<35) IU/L Alkaline Phosphatase 120 (38-126) U/L Total Creatine Kinase 53 (30-135) U/L CK-MB (CK-2) TNP CK-MB (CK-2) Rel Index TNP Troponin I < 0.012 (0.01-0.034) ng/mL Total Protein 8.0 (6.3-8.2) g/dL Albumin 4.7 (3.5-5.0) g/dL Globulin 3.3 (1.7-4.1) g/dL Albumin/Globulin Ratio 1.4 (1.0-2.8) Lipase 98 (23-300) U/L Urine RBC None seen (0-5/HPF) Urine WBC 0-1/hpf (0-5/HPF) Ur Squamous Epith Cells 0-1 /hpf (0-5/HPF) Urine Bacteria None seen (None) Ur Culture Indicated? Cult not indicated Urine Dip Bedside Urine Glucose Negative Bedside Urine Bilirubin - Negative Bedside Urine Ketone +/- 5 Urine Specific [place] 1.025 Bedside Urine Occult Blood - Negative Bedside Urine pH 6.0 Bedside Urine Protein - Negative Bedside Urine Urobilinogen - Negative Bedside Urine Nitrite - Negative Bedside Urine Leukocytes - Negative Esterase MDM Narrative Medical decision making narrative: [72] year old patient presents with increased belching and back pain for the past 2 weeks Multiple etiologies for patient's symptoms considered including, but not limited to: [Dietary contributor, medication complication versus pancreatitis versus gallbladder disease versus bowel obstruction versus other] Prior Charts reviewed in our EMR Primary Historian: patient Labs reviewed and interpreted by myself: Minimally elevated white blood cell count in the absence of true left shift, no signs of anemia. Liver function, lipase and gallbladder labs within normal Patient's symptoms improved over duration of stay with above-stated therapies. We discussed her reassuring history and physical exam as well as labs. We did discuss the utility of obtaining a CT scan and given her reassuring history physical as well as lack of significant lab abnormalities we sure the opinion that it is unlikely to change the disposition. She is encouraged to return for worsening or more persistent pain, vomiting, fever, shaking chills or other bothersome symptoms Findings and discharge diagnosis discussed with patient/family followed by verbalization of understanding Return precautions discussed with patient/family whom verbalize understanding of diagnosis and plan Discharge Plan Departure Patient Disposition: Home Clinical Impression: Abdominal pain Instructions: DI for Abdominal Pain-Adult Activity Restrictions/Additional Instructions: *You have been diagnosed with [abdominal pain] * As we discussed your history and physical exam as well as labs and imaging are very reassuring. There is no evidence of any severe diagnoses that would require a specific or immediate intervention. *What to do: *Please continue to take your regular medications as directed. *Please follow up with your primary care provider in 2-3 days, call for an appoi ntment. Let them know you were seen in the Emergency Department and that we ask that you be seen in follow up. We will electronically transmit a record of today's note if your PCP is in our system *Please consider a clear liquid diet for the next 24-48 hours and then slowly advance to regular as tolerated. Also, try to avoid alcohol, nicotine, caffeine, spicy, acidic or fatty foods as this may worsen your symptoms *If you do not have a primary care provider please contact the [facility] david line at [phone]. They will ask some questions about your medical history and help get you set up with a doctor in the community. *Return to Emergency Department if you should have any new, worsening or concerning symptoms, such as [fever greater than 101 F, shaking chills, worsening pain, persistent vomiting or other bothersome symptoms] Prescriptions: No Action Levemir FlexTouch U100 Insulin 100 unit/mL (3 mL) insulin pen 35 unit SUBCUT BID Qty: 45 3RF levothyroxine 150 mcg tablet 150 mcg PO DAILY Qty: 90 1RF insulin aspart U-100 [Novolog FlexPen U-100 Insulin] 100 unit/mL (3 mL) insulin pen See Rx Instructions SUBCUT .COMPLEX Qty: 15 1RF Rx Instructions: 1-12 units as per Sliding scale SUBCUT up to every four hours as necessary ; zolpidem 10 mg tablet 5 mg PO BEDTIME PRN (Reason: insomnia) Qty: 45 0RF Hold Instructions: formulary issue Ozempic 0.25 mg or 0.5 mg(2 mg/1.5 mL) pen injector 0.5 mg SUBCUT QWEEK Patient Comments: INJECT 0.25 UNITS UNDER THE SKIN WEEKLY FOR 2 TO 4 WEEKS. THEN INCREASE TO 0.5 MG UNDER THE SKIN WEEKLY THEREAFTER. (DME) FreeStyle Vandana 2 [place] [facility] [place] See Rx Instructions .Route Rx Instructions: As directed -- Checking blood sugar 4-7x a day cyanocobalamin (vitamin B-12) 1,000 mcg/mL solution 500 mcg IM .Q2WEEK Rx Instructions: Inject 500mcg every 2 weeks. (DME) ResMed AirSense 10 Auto See Rx Instructions .Route .MEDSUPPLY Rx Instructions: CPAP Min: 5 Max: 15 DME: [facility]: 12.13.17 Referrals: Joesph Martinez MD [Primary Care Provider] - Stand Alone Forms: Patient Portal/API
[2023-03-30 20:23] VITALS: PULSE 86; RESP 23; O2SAT 97
[2023-03-30 20:27] LABS: Add Manual Diff / Slide Review NO; Basophils Absolute Auto 100 /uL (0-100); Basophils Percent Auto 0.6 % (0-2); Eosinophils Absolute Auto 300 /uL (0-450); Eosinophils Percent Auto 2.2 % (2-4); Hematocrit 39.2 % (36-46); Hemoglobin 13.5 g/dL (12.0-16.0); Lymphocytes Absolute Auto 1900 /uL (1100-4500); Lymphocytes Percent Auto 16.1 % (25-40); Mean Corpuscular HGB Conc 34.6 % (30-36); Mean Corpuscular Hemoglobin 29.7 PG (26-34); Mean Corpuscular Volume 85.9 fL (80-100); Monocytes Absolute Auto 500 /uL (0-900); Monocytes Percent Auto 4.3 % (3-14); Neutrophils Absolute Auto 9200 /uL (1500-7000); Neutrophils Percent Auto 76.8 % (50-75); Platelet Count 323 X10^3/uL (150-400); Red Blood Cell Count 4.56 X10^6/uL (4.0-5.2); Red Cell Distribution Width 13.6 % (11.6-14.8); White Blood Cell Count 11.9 X10^3/uL (4.5-11.0)
[2023-03-30 20:30] VITALS: PULSE 84; RESP 13; O2SAT 97
[2023-03-30 20:39] LABS: Alanine Aminotransferase 24 IU/L (<35); Albumin 4.7 g/dL (3.5-5.0); Albumin Globulin Ratio 1.4 (1.0-2.8); Alkaline Phosphatase 120 U/L (38-126); Aspartate Aminotransferase 22 IU/L (14-36); BUN Creatinine Ratio 33.8 (6-22); Bilirubin Total 0.5 mg/dL (0.2-1.3); Blood Urea Nitrogen 22 mg/dL (7-17); Calcium 9.5 mg/dL (8.4-10.2); Carbon Dioxide 23 mmol/L (22-32); Chloride 101 mmol/L (98-107); Creatine Kinase 53 U/L (30-135); Estimated Glomerular Filt Rate > 60 mL/min (>60); Globulin 3.3 g/dL (1.7-4.1); Glucose 203 mg/dL (80-110); HEMOLYSIS 22 (0-50); Lipase 98 U/L (23-300); Potassium 4.2 mmol/L (3.4-5.1); Sodium 136 mmol/L (137-145)
[2023-03-30 20:51] LABS: Troponin I < 0.012 ng/mL (0.01-0.034)
[2023-03-30 21:00] VITALS: PULSE 86; RESP 20; O2SAT 98
[2023-03-30 21:21] VITALS: BP 145/65; PULSE 84; RESP 16
[2023-03-30 21:38] LABS: Bacteria Urine None Seen; Culture Indicated Urine Cult Not Indicated; RBC Urine None Seen (0-5/HPF); Squamous Epithelial Cell Urine 0-1 /HPF (0-5/HPF); WBC Urine 0-1/HPF (0-5/HPF)
== END 2023-03-30 21:32 | disposition home or self-care (01) ==
PROVIDERS: Emergency Provider Emergency Medicine; Family Provider Internal Medicine; PCP Internal Medicine
DX: R10.9 Unspecified abdominal pain (principal); M54.6 Pain in thoracic spine; Z79.899 Other long term (current) drug therapy
CPT/HCPCS: 36415; 80053; 81003; 81015; 82550; 83690; 84484; 85025; 93005; 93010; 99283; 99284

== ENCOUNTER → 2023-05-27 10:37 | Outpatient (CLI) | payer MEDICARE, SELFPAY ==
[2023-05-28 02:57] LABS: Labcorp Hemoglobin (Hb) A1c 6.7 % (4.8-5.6)
== END ==
PROVIDERS: Family Provider Internal Medicine; PCP Internal Medicine; Referring Provider Family Medicine; Visit Provider Family Medicine
DX: E11.9 Type 2 diabetes mellitus without complications (principal)
CPT/HCPCS: 36415; 83036

== ENCOUNTER → 2023-06-03 11:46 | Outpatient (CLI) | payer MEDICARE, SELFPAY | PROVIDERS: Family Provider Internal Medicine; PCP Internal Medicine; Referring Provider Family Medicine; Visit Provider Family Medicine | DX: K52.9 Noninfective gastroenteritis and colitis, unspecified (principal) | CPT/HCPCS: 87177 ==

== ENCOUNTER → 2023-06-04 10:20 | Outpatient (CLI) | payer MEDICARE, SELFPAY ==
--- NOTE | 2023-06-04 10:20 | DI.RAD.S_ITS ---
PROCEDURE: XR ABDOMEN MIN 2V INDICATIONS: diarrhea TECHNIQUE: 2 views of the abdomen were acquired. COMPARISON: None. FINDINGS: Surgical changes and devices: None. Bowel: No pneumoperitoneum. The bowel gas pattern is normal. Soft tissues: No masses; visualized solid organ contours appear normal in size. No suspicious abdominal calcifications. Bones: No suspicious bony abnormalities. IMPRESSION: Nonobstructive bowel gas pattern. Dictated by: Félix Mohamud M.D. on 06/04/2023 at 14:08 Approved by: Félix Mohamud M.D. on 06/04/2023 at 14:08
== END ==
PROVIDERS: Family Provider Internal Medicine; PCP Internal Medicine; Referring Provider Internal Medicine; Visit Provider Internal Medicine
DX: R19.7 Diarrhea, unspecified (principal)
CPT/HCPCS: 74019

== ENCOUNTER → 2023-10-08 12:59 | Outpatient (CLI) | payer MEDICARE, SELFPAY ==
[2023-10-08 13:53] LABS: Hemoglobin A1C% w Est Avg Glu 7.4 % (4.0-6.0)
[2023-10-08 14:18] LABS: BUN Creatinine Ratio 31.3 (6-22); Blood Urea Nitrogen 20 mg/dL (7-17); Calcium 10.1 mg/dL (8.4-10.2); Carbon Dioxide 26 mmol/L (22-32); Chloride 102 mmol/L (98-107); Estimated Glomerular Filt Rate > 60 mL/min (>60); Glucose 183 mg/dL (80-110); HEMOLYSIS < 15 (0-50); Potassium 4.2 mmol/L (3.4-5.1); Sodium 136 mmol/L (137-145)
== END ==
PROVIDERS: Family Provider Internal Medicine; PCP Internal Medicine; Referring Provider Nurse Practitioner Family; Visit Provider Nurse Practitioner Family
DX: E11.65 Type 2 diabetes mellitus with hyperglycemia (principal); Z79.4 Long term (current) use of insulin
CPT/HCPCS: 36415; 80048; 83036

== ENCOUNTER → 2023-10-09 14:17 | Outpatient (CLI) | payer MEDICARE, SELFPAY ==
[2023-10-09 16:43] LABS: Creatinine Urine Random 27.9 mg/dL
[2023-10-09 16:44] LABS: Microalbumin Urine Random < 0.6 mg/dL (0-1.6)
== END ==
PROVIDERS: Family Provider Internal Medicine; PCP Internal Medicine; Referring Provider Nurse Practitioner Family; Visit Provider Nurse Practitioner Family
DX: E11.65 Type 2 diabetes mellitus with hyperglycemia (principal); Z79.4 Long term (current) use of insulin
CPT/HCPCS: 82043; 82570

== ENCOUNTER → 2024-01-15 07:36 | Outpatient (CLI) | payer MEDICARE, SELFPAY ==
[2024-01-15 08:43] LABS: Add Manual Diff / Slide Review NO; Basophils Absolute Auto 0 /uL (0-100); Basophils Percent Auto 0.6 % (0-2); Eosinophils Absolute Auto 200 /uL (0-450); Eosinophils Percent Auto 2.4 % (2-4); Hematocrit 36.6 % (36-46); Hemoglobin 12.7 g/dL (12.0-16.0); Lymphocytes Absolute Auto 2000 /uL (1100-4500); Lymphocytes Percent Auto 26.5 % (25-40); Mean Corpuscular HGB Conc 34.6 % (30-36); Mean Corpuscular Hemoglobin 30.3 PG (26-34); Mean Corpuscular Volume 87.6 fL (80-100); Monocytes Absolute Auto 400 /uL (0-900); Monocytes Percent Auto 5.1 % (3-14); Neutrophils Absolute Auto 4900 /uL (1500-7000); Neutrophils Percent Auto 65.4 % (50-75); Platelet Count 297 X10^3/uL (150-400); Red Blood Cell Count 4.18 X10^6/uL (4.0-5.2); Red Cell Distribution Width 13.2 % (11.6-14.8); White Blood Cell Count 7.6 X10^3/uL (4.5-11.0)
[2024-01-15 08:52] LABS: Hemoglobin A1C% w Est Avg Glu 7.2 % (4.0-6.0)
[2024-01-15 09:18] LABS: Alanine Aminotransferase 21 IU/L (<35); Albumin Globulin Ratio 1.4 (1.0-2.8); Alkaline Phosphatase 97 U/L (38-126); Aspartate Aminotransferase 20 IU/L (14-36); BUN Creatinine Ratio 28.1 (6-22); Bilirubin Total 0.5 mg/dL (0.2-1.3); Blood Urea Nitrogen 18 mg/dL (7-17); C-Reactive Protein Quant < 0.5 mg/dL (<1.0); Calcium 10.1 mg/dL (8.4-10.2); Carbon Dioxide 25 mmol/L (22-32); Chloride 106 mmol/L (98-107); Cholesterol 183 mg/dL (140-199); Creatine Kinase 51 U/L (30-135); Estimated Glomerular Filt Rate > 60 mL/min (>60); Globulin 2.9 g/dL (1.7-4.1); Glucose 133 mg/dL (80-110); HDL Cholesterol 50 mg/dL (40-60); HEMOLYSIS < 15 (0-50); LDL Cholesterol Calculated 114 mg/dL (<100); Potassium 4.4 mmol/L (3.4-5.1); Sodium 140 mmol/L (137-145); Total Protein 6.9 g/dL (6.3-8.2); Triglycerides 96 mg/dL (35-150)
[2024-01-15 09:21] LABS: Free T4, Direct Thyroxine 1.25 ng/dL (0.78-2.19)
[2024-01-15 09:35] LABS: Thyroid Stimulating Hormone 4.41 uIU/mL (0.47-4.68)
[2024-01-15 14:31] LABS: Erythrocyte Sedimentation Rate 20 MM/HR (0-20)
== END ==
PROVIDERS: Family Provider Internal Medicine; PCP Internal Medicine; Referring Provider Internal Medicine; Visit Provider Internal Medicine
DX: E11.9 Type 2 diabetes mellitus without complications (principal); E03.9 Hypothyroidism, unspecified; E66.9 Obesity, unspecified; M54.9 Dorsalgia, unspecified; G89.29 Other chronic pain
CPT/HCPCS: 36415; 80053; 80061; 82550; 83036; 84439; 84443; 85025; 85651; 86140

== ENCOUNTER 2024-02-04 14:30 | Outpatient (RCR) | payer MEDICARE, SELFPAY ==
--- NOTE | 2023-07-19 17:38 | PT.OIE ---
Current Diagnoses Pain in right shoulder (07/19/23) Pain in left shoulder (07/19/23) Other kyphosis, thoracic region (07/19/23) Postural lordosis, thoracolumbar region (07/19/23) Postural lordosis, lumbosacral region (07/19/23) Cervicalgia (07/19/23) Muscle weakness (generalized) (07/19/23) Pain in right arm (07/19/23) Pain in left arm (07/19/23) Pain in right leg (07/19/23) Pain in left leg (07/19/23) Past Medical History (Last Updated 06/10/23 @ 13:59 by Joesph Martinez MD) Acquired hypothyroidism (~1998) Anogenital lichen sclerosus Arthritis of carpometacarpal (CMC) joint of left thumb Arthritis of carpometacarpal (CMC) joint of right thumb Carpal tunnel syndrome Chicken pox (~1954) Chronic back pain Fractures (~2003) Greater trochanteric bursitis of both hips Hip pain Measles (~1950) Mumps (~1950) Neck pain Obesity (BMI 30.0-34.9) Plantar warts (~1959) Pneumonia Seborrheic dermatitis Seizure disorder (~2008) Shoulder pain Skin cancer (~2013) Sleep apnea in adult (~2013) Type 2 diabetes mellitus (~2003) Past Surgical History (Last Reviewed 04/01/23 @ 01:41 by Lacho Hinton DO) Anesthesia History of ankle surgery (~2003) History of ectopic (~1976) S/P cataract extraction (~2016) S/P tonsillectomy and adenoidectomy (~1955) Visit Care Team Role Provider Type Joesph Martinez MD Attending Provider Physician Family Provider Primary Care Provider Referring Provider Specialty: Internal Medicine Address: [address] [place] [address], [address], [facility] Email: [email or web address] Physical Therapy Initial Evaluation PT-OP-A Visit Information Start: 07/02/23 16:35 Freq: Status: Active Protocol: Document 07/19/23 11:23 LRN (Rec: 07/19/23 17:28 LRN [id number]) Out-Patient Physical Therapy Visit Information Visit Information Visit Type Initial Evaluation Visit Start Time :23 Visit Stop Time 12:20 Total Visit Minutes 57 Visit Number 1 Evaluation Information Evaluation Date 07/19/23 Precautions Precautions Arthritis, back pain Diabete's type II, Hypothyroidism, L broken ankle and tibia 2003. PT-OP-B Current Condition Start: 07/02/23 16:35 Freq: Status: Active Protocol: Document 07/19/23 11:23 LRN (Rec: 07/19/23 17:28 LRN [id number]) Current Condition History of Current Condition Onset Date ~05/03/23 Current Complaints Lan shoulder pain is interrupting sleep. Pain across LB, hip, thighs. History of Current Condition States her main focus is her Lan Shoulder pain (L stiffer than R). In last 2 months started to wake her up during the night (can sleep 5 hrs with rub cream). Had good mobility until April (went to [place] in March). She reports decreased shoulder ROM because difficulty putting on /off Tshirt and tucking shirt in the back into pants. Less bothersome, but present is pain across the Iliac crests with tightness and pain at IT Bands and quads. Sometimes sciatic pain down both legs. Neck is not bother her today. Prior Treatments and Tests X-rays (02/18/23): L shoulder - mod OA, Neck - DDD throughout spine with suggestion of bilateral foraminal stenosis at C4-5 through C6-7 levels. Lumbar Spine - DDD throughout spine, 8 mm anterolisthesis of L4 on L5. Future Testing and Treatments Planned Dr. Martinez appt 07/22/23 for GI dysfunction. Treatment Goals Patient/Caregiver Goals Pt goal:1) Sleep 4-5 hrs at night before getting up to use BR, and return to sleep for another couple of hours. 2) Improve ROM to take off T- Shirt blouse from an overhead or partial overhead postion and put in hair clips without noticing the shoulders discomfot and be able to lift L arm to put on deodorant with ease. Pt goals for LB/LE's: to address/create after shoulder rehab. Prior Functional Status Baseline Function- Other 5 hrs of sleep a night Current Functional Impairments (Reported) Functional Limitations- Other Interrupted sleeping every 2-3 hrs. Sleeps for a total of 7 hrs if able to sit up in a recliner to reduce shoulder pain, then can fall back asleep or sleeps in the recliner chair, nightly. Personal Factors Other Personal Factors That May Effect Chronic pain, Arthritis, Therapy/Recovery Diabetes type II. PT-OP-C Subjective Start: 07/02/23 16:35 Freq: Status: Active Protocol: Document 07/19/23 11:23 LRN (Rec: 07/19/23 17:28 LRN [id number]) Patient Questionnaires Lower Extremity Functional Scale LEFS Score 51 LEFS Impairment 20 to 39% Impaired (Score 48- 62) Neck Disability Index NDI Score 14 Neck Disability Index Impairment 20 to 39% Impaired (Score 10- 19) Oswestry Low Back Index Oswestry Score 30 Oswestry Impairment 20 to 39% Impaired (Score 20- 39) Quick Dash- Upper Extremity Quick Dash UE Score 43.18 Quick Dash UE Impairment 40 to 59% Impaired (Score 40- 59) OP-PT Pain Assessment Pain Assessment Grid Paper Pain Assessment Grid Completed Yes Location Anterior thighs Pain Location Details Bilateral Anterior thigs Intensity 4 Scale Used Numeric (0 - 10) Sacral Borders Pain Location Details Bilateral Lateral buttocks - Sciatic pain Intensity 4 Scale Used Numeric (0 - 10) Lateral thighs Pain Location Details Bilateral Greater trochanter and IT Bands Intensity 4 Scale Used Numeric (0 - 10) Low Back Pain Location Details Bilaterally across Iliac Crests & PSIS' Intensity 4 Scale Used Numeric (0 - 10) Upper back Pain Location Details Area of scapula, Medial scapula border to lateral trunk Intensity 7 Scale Used Numeric (0 - 10) Shoulders Pain Location Details Anterior, superior, posterior Intensity 7 Scale Used Numeric (0 - 10) PT-OP-H Neuro Start: 07/02/23 16:35 Freq: Status: Active Protocol: Document 07/19/23 11:23 LRN (Rec: 07/19/23 17:28 LRN [id number]) Sensation Evaluation Comments Summary Comments Gross sensation in UE's assessed and found to be WNL. PT-OP-J Posture/Palpation/Skin Start: 07/02/23 16:35 Freq: Status: Active Protocol: Document 07/19/23 11:23 LRN (Rec: 07/19/23 17:28 LRN [id number]) Posture Evaluation Position Standing Head/C-Spine Posture Forward Head T-Spine Posture Increased Kyphosis L-Spine Posture Increased Lordosis Shoulder Posture (L) Rounded,(R) Rounded,(L) Forward,(R) Forward,(L) Elevated Scapula Posture (L) Elevated Pelvis Posture (R) PSIS Posterior Comments Posture Comments C-Curve of lower thoracic & lumbar spine with apex on the left. Iliac Crest height is level. Palpation Assessment Location Hips Palpation Location Bilateral Greater Trochanters & IT Bands Palpation Findings Tenderness Low Back Palpation Location PSIS's, QL at Iliac Crest, Lateral Sacral borders Palpation Findings Soft Tissue Tightness, Tenderness Thoracic region Palpation Location Upper T/S paraspinals & chest at lower sternum Palpation Findings Soft Tissue Tightness, Tenderness Neck Palpation Location L>R UT, L Paraspinals Palpation Findings Soft Tissue Tightness, Tenderness Shoulders Palpation Location Around shoulder joints Palpation Findings Tenderness PT-OP-K Range of Motion Start: 07/02/23 16:35 Freq: Status: Active Protocol: Document 07/19/23 11:23 LRN (Rec: 07/19/23 17:28 LRN [id number]) Cervical Spine Range of Motion Cervical Spine Active Degrees Testing Position Sitting Flexion 38 Extension 42 Rotation Left 49 Rotation Right 47 Lateral Flexion Left 19 Lateral Flexion Right 25 ROM Limitations Pain Shoulder Goniometric Range of Motion Shoulder Right Active Testing Position Sitting Flexion 132 Abduction 110 External Rotation at 0 degrees Abduction 45 Internal Rotation Behind Back (text) Middle of buttock Comments Reaching behind head: Back of head Left Active Shoulder ROM WFL No Testing Position Sitting Flexion 110 Abduction 63 External Rotation at 0 degrees Abduction 35 Internal Rotation Behind Back (text) Lateral hip Comments Reaching behind head: Top of head. Hip Goniometric Range of Motion Hip Right Passive Hip ROM WFL No Testing Position Supine Internal Rotation 30 External Rotation 55 Comments PROM Limited by pain. Left Passive Hip ROM WFL No Testing Position Supine Internal Rotation 10 External Rotation 50 Comments PROM Limited by pain. PT-OP-L Special Tests Start: 07/02/23 16:35 Freq: Status: Active Protocol: Document 07/19/23 11:23 LRN (Rec: 07/19/23 17:28 LRN [id number]) Special Tests Cervical Spine Special Tests Spurling's Test Test Results negative bilaterally Traction Test Results negative Comments No change in pain Foraminal Compression Test Results negative Comments No increase in pain Shoulder Special Tests Passive ER Rotator Cuff Test Results + left Barboza Joe Impingement Test Results + left Elevation Impingement Test Results + left PT-OP-M Strength Start: 07/02/23 16:35 Freq: Status: Active Protocol: Document 07/19/23 11:23 LRN (Rec: 07/19/23 17:28 LR [id number]) Cervical Spine Strength Cervical Spine Manual Muscle Testing Testing Position Sitting Flexion (C1-2) 5 Normal Extension 5 Normal Rotation Left 5 Normal Rotation Right 5 Normal Lateral Flexion Left (C3) 5 Normal Lateral Flexion Right (C3) 5 Normal Shoulder Strength Shoulder Manual Muscle Testing Right Flexion 4 Good Abduction (C5) 3 Fair External Rotation 4+ Good+ Internal Rotation 4+ Good+ Comments All motions tested created shoulder pain. Left Flexion 5 Normal Abduction (C5) 3 Fair External Rotation 4+ Good+ Internal Rotation 5 Normal Comments All motions tested created shoulder pain. PT-OP-Q Treatments Start: 07/02/23 16:35 Freq: Status: Active Protocol: Document 07/19/23 11:23 LRN (Rec: 07/19/23 17:28 LR [id number]) Self-Care/Home Management Treatment Education Patient Education Home Exercise Program Other Education Discussed results of evaluation, and extensive discussion of goals and POC. Pt agreeable to goals and POC. Educated pt in sleeping practice on sides with use of pillows and positioning in partial slidelie and demonstrated with use of pillows. Activities Self-Care/Home Management Activities I/S pt to restart the initial ex's given for her most recent PT low back HEP and to bring them in for review. PT-OP-T Assessment and Plan Start: 07/02/23 16:35 Freq: Status: Active Protocol: Document 07/19/23 11:23 LRN (Rec: 07/19/23 17:28 LR [id number]) Physical Therapy Assessment Rehab Potential Rehabilitation Potential Excellent Evaluation Complexity Number of Personal Factors/Comorbidities 3 or More Number of Body Systems Impaired 4 or More Clinical Presentation at Evaluation Evolving Impairments Impairments Activity Tolerance,Functional Activities,Pain,Posture,ROM, Soft Tissue Mobility,Strength Goals Five Impairment LE (Greater trochanter, hamstring, quad, knee) pain Distribution Warehouse Manager Goal (LTG) Address & create LE pain goals after therapy focusing on shoulder rehab. LTG Duration 10/17/23 Three Impairment Decreased bilateral shoulder mobility Short Term Goal (STG) Improve ROM to put in hair clips without noticing shoulder discomfort. STG Duration 08/18/23 Distribution Warehouse Manager Goal (LTG) Improve ROM to remove T-Shirt blouse with an overhead or partially overhead motion. LTG Duration 09/17/23 One Impairment Pt lacks appropriate shoulder/ thoracic spine HEP. Short Term Goal (STG) Pt will be able to put on underarm deodorant with ease. STG Duration 09/17/23 Residential Goal (LTG) Pt will be independent in a self care HEP of shoulder/ thoracic/back/hip/knee ROM and strengthening ex's. LTG Duration 10/17/23 Four Impairment LB pain Distribution Warehouse Manager Goal (LTG) Address & create LB pain goals after therapy focusing on shoulder rehab. LTG Duration 10/17/23 Two Impairment Decreased shoulder stability and strength limiting function Impairment Pt limited in ability to lift L arm to put on underarm deodorant with ease. Pt limited in ability to sleep at night. Pt wakes after 2-3 hours of sleep and usually gets up to lay on recliner chair for another couple of hours of sleep. Short Term Goal (STG) Pt will be educated in best nighttime sleeping positions. STG Duration 08/02/23 Distribution Warehouse Manager Goal (LTG) Pt will be able to sleep 4-5 hrs at night before getting up to use BR, and return to sleep without having to sleep in recliner chair. LTG Duration 09/17/23 Assessment Summary Assessment Pt is a 73 yo female who presents with complaints of pain in most areas of her body . She states she has no neck pain today, but that her bilateral shoulder pain is currently the most bothersome condition and is agreeable to focusing on rehab in that area . Once her shoulders have been addressed she would like physical therapy to then focus on her low back and lower body. The pt appears to have a soft tissue injury of her L shoulder as tests indicate a possible rotator cuff tear as well as mechanical pain from poor posturing. Her R shoulder pain is probably more mechanical (poor posturing) in nature but soft tissue dysfunction is also present. Her low back and LE's appear to be mechanical and soft tissue related, although further assessment will be needed once her shoulder condition has been addressed. The pt will benefit from skilled physical therapy to help the pt reduce her shoulder pain to provide her with more rest/sleep in order to decrease her pain and strengthening to reduce pain and improve function of her shoulders, low back, hips and knees. It is expected that the pt's PT rehab will be prolonged due to the pt's history of chronic pain and the multiple areas of dysfunction that needs to be addressed. Physical Therapy Plan Frequency and Duration Frequency of Treatment 2x/Week Duration of treatment (weeks) 12 Plan of Care Start Date 07/19/23 Plan of Care End Date 10/17/23 Therapeutic Interventions Therapeutic Interventions Home Exercise Program,Joint Mobilizations,Manual Therapy, Neuromuscular Re-education, Patient/Caregiver Education, Self-Care/Home Management,Soft Tissue Mobilization, Therapeutic Activities, Therapeutic Exercises Modalities Cold Pack/Ice Massage,Hot Packs,Iontophoresis,Ultrasound Other Therapeutic Interventions 4 mg/mL Dexamethasone with Sodium Phosphate. Next Visit Focus/Plan Next Note Type Treatment Note Next Visit Plan Note: Minimize ex's for home due to pt's difficulty in doing home ex's. Next: Assess for ULNT and review best sleeping posturing to minimize pain. Start shoulder ROM ex's and as needed, neural glides. Initiate postural ex's and RC strengthening. Educate pt in proper posturing and body mechanics for ADLS w/RC protection in mind, and self care pain mgmt techniques. Encourage pt to be consistent with HEP. Assess LB/hips - ROM, strength & special test for neuro involvement. After shoulder rehab reassess for new POC. POC: L shoulder RC rehab, R shoulder arthritis pain rehab; LB/Hip therapy POC when shoulder rehab has been addressed.
--- NOTE | 2023-07-22 16:20 | PT.OTN ---
Current Diagnoses Pain in right shoulder (07/22/23) Pain in left shoulder (07/22/23) Other kyphosis, thoracic region (07/22/23) Postural lordosis, thoracolumbar region (07/22/23) Postural lordosis, lumbosacral region (07/22/23) Cervicalgia (07/22/23) Muscle weakness (generalized) (07/22/23) Pain in right arm (07/22/23) Pain in left arm (07/22/23) Pain in right leg (07/22/23) Pain in left leg (07/22/23) Physical Therapy Treatment Note PT-OP-A Visit Information Start: 07/02/23 16:35 Freq: Status: Active Protocol: Document 07/22/23 14:17 LRN (Rec: 07/22/23 16:19 LRN [id number]) Out-Patient Physical Therapy Visit Information Visit Information Visit Type Treatment Note Visit Start Time 14:17 Visit Stop Time 15:01 Total Visit Minutes 44 Visit Number 2 Evaluation Information Evaluation Date 07/19/23 Precautions Precautions Arthritis, back pain Diabete's type II, Hypothyroidism, L broken ankle and tibia 2003. PT-OP-B Current Condition Start: 07/02/23 16:35 Freq: Status: Active Protocol: Document 07/19/23 11:23 LRN (Rec: 07/19/23 17:28 LRN [id number]) Current Condition History of Current Condition Onset Date ~05/03/23 Current Complaints Lan shoulder pain is interrupting sleep. Pain across LB, hip, thighs. History of Current Condition States her main focus is her Lan Shoulder pain (L stiffer than R). In last 2 months started to wake her up during the night (can sleep 5 hrs with rub cream). Had good mobility until April (went to [place] in March). She reports decreased shoulder ROM because difficulty putting on /off Tshirt and tucking shirt in the back into pants. Less bothersome, but present is pain across the Iliac crests with tightness and pain at IT Bands and quads. Sometimes sciatic pain down both legs. Neck is not bother her today. Prior Treatments and Tests X-rays (02/18/23): L shoulder - mod OA, Neck - DDD throughout spine with suggestion of bilateral foraminal stenosis at C4-5 through C6-7 levels. Lumbar Spine - DDD throughout spine, 8 mm anterolisthesis of L4 on L5. Future Testing and Treatments Planned Dr. Martinez appt 07/22/23 for GI dysfunction. Treatment Goals Patient/Caregiver Goals Pt goal:1) Sleep 4-5 hrs at night before getting up to use BR, and return to sleep for another couple of hours. 2) Improve ROM to take off T- Shirt blouse from an overhead or partial overhead postion and put in hair clips without noticing the shoulders discomfot and be able to lift L arm to put on deodorant with ease. Pt goals for LB/LE's: to address/create after shoulder rehab. Prior Functional Status Baseline Function- Other 5 hrs of sleep a night Current Functional Impairments (Reported) Functional Limitations- Other Interrupted sleeping every 2-3 hrs. Sleeps for a total of 7 hrs if able to sit up in a recliner to reduce shoulder pain, then can fall back asleep or sleeps in the recliner chair, nightly. Personal Factors Other Personal Factors That May Effect Chronic pain, Arthritis, Therapy/Recovery Diabetes type II. PT-OP-C Subjective Start: 07/02/23 16:35 Freq: Status: Active Protocol: Document 07/22/23 14:17 LRN (Rec: 07/22/23 16:19 LRN [id number]) OP-PT Subjective Patient Comments Patient Comments Saw Dr. Martinez this morning and was given Trazadone for sleep since her shoulders are causing her to not sleep well. Leaving for [place] for 10-11 days. PT-OP-H Neuro Start: 07/02/23 16:35 Freq: Status: Active Protocol: Document 07/19/23 11:23 LRN (Rec: 07/19/23 17:28 LRN [id number]) Sensation Evaluation Comments Summary Comments Gross sensation in UE's assessed and found to be WNL. PT-OP-J Posture/Palpation/Skin Start: 07/02/23 16:35 Freq: Status: Active Protocol: Document 07/19/23 11:23 LRN (Rec: 07/19/23 17:28 LRN [id number]) Posture Evaluation Position Standing Head/C-Spine Posture Forward Head T-Spine Posture Increased Kyphosis L-Spine Posture Increased Lordosis Shoulder Posture (L) Rounded,(R) Rounded,(L) Forward,(R) Forward,(L) Elevated Scapula Posture (L) Elevated Pelvis Posture (R) PSIS Posterior Comments Posture Comments C-Curve of lower thoracic & lumbar spine with apex on the left. Iliac Crest height is level. Palpation Assessment Location Hips Palpation Location Bilateral Greater Trochanters & IT Bands Palpation Findings Tenderness Low Back Palpation Location PSIS's, QL at Iliac Crest, Lateral Sacral borders Palpation Findings Soft Tissue Tightness, Tenderness Thoracic region Palpation Location Upper T/S paraspinals & chest at lower sternum Palpation Findings Soft Tissue Tightness, Tenderness Neck Palpation Location L>R UT, L Paraspinals Palpation Findings Soft Tissue Tightness, Tenderness Shoulders Palpation Location Around shoulder joints Palpation Findings Tenderness PT-OP-K Range of Motion Start: 07/02/23 16:35 Freq: Status: Active Protocol: Document 07/19/23 11:23 LRN (Rec: 07/19/23 17:28 LRN [id number]) Cervical Spine Range of Motion Cervical Spine Active Degrees Testing Position Sitting Flexion 38 Extension 42 Rotation Left 49 Rotation Right 47 Lateral Flexion Left 19 Lateral Flexion Right 25 ROM Limitations Pain Shoulder Goniometric Range of Motion Shoulder Right Active Testing Position Sitting Flexion 132 Abduction 110 External Rotation at 0 degrees Abduction 45 Internal Rotation Behind Back (text) Middle of buttock Comments Reaching behind head: Back of head Left Active Shoulder ROM WFL No Testing Position Sitting Flexion 110 Abduction 63 External Rotation at 0 degrees Abduction 35 Internal Rotation Behind Back (text) Lateral hip Comments Reaching behind head: Top of head. Hip Goniometric Range of Motion Hip Right Passive Hip ROM WFL No Testing Position Supine Internal Rotation 30 External Rotation 55 Comments PROM Limited by pain. Left Passive Hip ROM WFL No Testing Position Supine Internal Rotation 10 External Rotation 50 Comments PROM Limited by pain. PT-OP-L Special Tests Start: 07/02/23 16:35 Freq: Status: Active Protocol: Document 07/22/23 14:17 LRN (Rec: 07/22/23 16:19 LRN [id number]) Special Tests Cervical Spine Special Tests Upper Limb Tension Test Test Results + bilaterally with R worse than L. Comments RUE very limited in mobility, LUE mostly limited with radial nerve glide. PT-OP-M Strength Start: 07/02/23 16:35 Freq: Status: Active Protocol: Document 07/19/23 11:23 LRN (Rec: 07/19/23 17:28 LRN [id number]) Cervical Spine Strength Cervical Spine Manual Muscle Testing Testing Position Sitting Flexion (C1-2) 5 Normal Extension 5 Normal Rotation Left 5 Normal Rotation Right 5 Normal Lateral Flexion Left (C3) 5 Normal Lateral Flexion Right (C3) 5 Normal Shoulder Strength Shoulder Manual Muscle Testing Right Flexion 4 Good Abduction (C5) 3 Fair External Rotation 4+ Good+ Internal Rotation 4+ Good+ Comments All motions tested created shoulder pain. Left Flexion 5 Normal Abduction (C5) 3 Fair External Rotation 4+ Good+ Internal Rotation 5 Normal Comments All motions tested created shoulder pain. PT-OP-Q Treatments Start: 07/02/23 16:35 Freq: Status: Active Protocol: Document 07/22/23 14:17 LRN (Rec: 07/22/23 16:19 LRN [id number]) Therapeutic Exercises Supine Exercises Shoulder Flex Supine Exercise Name Active Shoulder flex stretch Side bilateral Reps/Minutes 10x Comments Cuing to control motion to painfree range. Scapular Protraction Supine Exercise Name Scapular protraction Side bilateral Reps/Minutes 10x 2 Comments Cuing to keep elbows straight and control return Active shoulder ER Supine Exercise Name Active shoulder ER Side bilateral Reps/Minutes 5-10 SH Comments Cuing to move in painfree range and keep elbows into sides. Self-Care/Home Management Treatment Education Patient Education Home Exercise Program,Joint Protection Other Education Pt educated in best sleep positions to minimize pain while on side and on back using pilllows to support arms and when on sides-upper back. Activities Self-Care/Home Management Activities Issued & reviewed HEP: Codman 's, Lan Shoulder AROM: ER, Flex, protraction; Resisted lan scapular stab: Shdr Ext & ADD. Issued Lev 2 TB -non latex. PT-OP-T Assessment and Plan Start: 07/02/23 16:35 Freq: Status: Active Protocol: Document 07/22/23 14:17 LRN (Rec: 07/22/23 16:19 LRN [id number]) Physical Therapy Assessment Goals Five Impairment LE (Greater trochanter, hamstring, quad, knee) pain Senior Care Goal (LTG) Address & create LE pain goals after therapy focusing on shoulder rehab. LTG Duration 10/17/23 (12 weeks) Three Impairment Decreased bilateral shoulder mobility Short Term Goal (STG) Improve ROM to put in hair clips without noticing shoulder discomfort. STG Duration 08/18/23 (4 weeks) Interface Control Officer Goal (LTG) Improve ROM to remove T-Shirt blouse with an overhead or partially overhead motion. LTG Duration 09/17/23 (7 weeks) One Impairment Pt lacks appropriate shoulder/ thoracic spine HEP. Short Term Goal (STG) Pt will be able to put on underarm deodorant with ease. STG Duration 09/17/23 (7 weeks) Interface Control Officer Goal (LTG) Pt will be independent in a self care HEP of shoulder/ thoracic/back/hip/knee ROM and strengthening ex's. 07/22/23: Shldr HEP: Codman's, AROM: ER, Flex, protraction; Resisted lan scapular stab: Shdr Ext & ADD. LTG Duration 10/17/23 (12 weeks) progressed 07/22/23 Four Impairment LB pain Senior Care Goal (LTG) Address & create LB pain goals after therapy focusing on shoulder rehab. LTG Duration 10/17/23 (12 weeks) Two Impairment Decreased shoulder stability and strength limiting function Impairment Pt limited in ability to lift L arm to put on underarm deodorant with ease. Pt limited in ability to sleep at night. Pt wakes after 2-3 hours of sleep and usually gets up to lay on recliner chair for another couple of hours of sleep. Short Term Goal (STG) Pt will be educated in best nighttime sleeping positions. 07/22/23: Pt educated in best nighttime sleep positions in sidelie & supine, using pillows to support her UE's and back. STG Duration 08/02/23 (2 weeks) (07/22/23: MET GOAL) Interface Control Officer Goal (LTG) Pt will be able to sleep 4-5 hrs at night before getting up to use BR, and return to sleep without having to sleep in recliner chair. LTG Duration 09/17/23 (7 weeks) Assessment Summary Assessment Pt is a 73 yo female who presented with complaints of pain in most areas of her body , but most interested decreasing shoulder pain to improve sleep. She is + with all ULNT tests with RUE worse than LUE. Pt was receptive to use of pillows to support shoulders and back for nighttime sleeping. She needed much cuing and instructions for positioning for nighttime sleep and to perform ex's. Physical Therapy Plan Frequency and Duration Frequency of Treatment 2x/Week Duration of treatment (weeks) 12 Plan of Care Start Date 07/19/23 Plan of Care End Date 10/17/23 Next Visit Focus/Plan Next Note Type Treatment Note Next Visit Plan Pt away to assist sister and will return for continuation of rehab in 10-11 days. Note: Minimize ex's for home due to pt's difficulty in doing home ex's. Next: Start shoulder PROM/AROM as tolerated, and home ex's and as needed, gentle neural glides. Initiate postural ex 's and RC strengthening. Educate pt in proper posturing and body mechanics for ADLS w /RC protection in mind, and self care pain mgmt techniques . Encourage pt to be consistent with HEP. Assess LB/hips - ROM, strength & special test for neuro involvement. After shoulder rehab reassess for new POC. POC: L shoulder RC rehab, R shoulder arthritis pain rehab; LB/Hip therapy POC when shoulder rehab has been addressed.
--- NOTE | 2023-07-25 11:20 | PT-OP ANOTE ---
Pt cancelled today and next appt in advance, out of town.
--- NOTE | 2023-08-02 15:22 | PT.OTN ---
Current Diagnoses Pain in right shoulder (08/02/23) Pain in left shoulder (08/02/23) Other kyphosis, thoracic region (08/02/23) Postural lordosis, thoracolumbar region (08/02/23) Postural lordosis, lumbosacral region (08/02/23) Cervicalgia (08/02/23) Muscle weakness (generalized) (08/02/23) Pain in right arm (08/02/23) Pain in left arm (08/02/23) Pain in right leg (08/02/23) Pain in left leg (08/02/23) Physical Therapy Treatment Note PT-OP-A Visit Information Start: 07/02/23 16:35 Freq: Status: Active Protocol: Document 08/02/23 14:27 SP (Rec: 08/02/23 15:48 SP [id number]) Out-Patient Physical Therapy Visit Information Visit Information Visit Type Treatment Note Visit Start Time 14:30 Visit Stop Time 15:22 Total Visit Minutes 52 Visit Number 3 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 PT-OP-B Current Condition Start: 07/02/23 16:35 Freq: Status: Active Protocol: Document 07/19/23 11:23 LRN (Rec: 07/19/23 17:28 LRN [id number]) Current Condition History of Current Condition Onset Date ~05/03/23 Current Complaints Abby shoulder pain is interrupting sleep. Pain across LB, hip, thighs. History of Current Condition States her main focus is her Abby Shoulder pain (L stiffer than R). In last 2 months started to wake her up during the night (can sleep 5 hrs with rub cream). Had good mobility until April (went to [place] in March). She reports decreased shoulder ROM because difficulty putting on /off Tshirt and tucking shirt in the back into pants. Less bothersome, but present is pain across the Iliac crests with tightness and pain at IT Bands and quads. Sometimes sciatic pain down both legs. Neck is not bother her today. Prior Treatments and Tests X-rays (02/18/23): L shoulder - mod OA, Neck - DDD throughout spine with suggestion of bilateral foraminal stenosis at C4-5 through C6-7 levels. Lumbar Spine - DDD throughout spine, 8 mm anterolisthesis of L4 on L5. Future Testing and Treatments Planned Dr. Juan herbert 07/22/23 for GI dysfunction. Treatment Goals Patient/Caregiver Goals Pt goal:1) Sleep 4-5 hrs at night before getting up to use BR, and return to sleep for another couple of hours. 2) Improve ROM to take off T- Shirt blouse from an overhead or partial overhead postion and put in hair clips without noticing the shoulders discomfot and be able to lift L arm to put on deodorant with ease. Pt goals for LB/LE's: to address/create after shoulder rehab. Prior Functional Status Baseline Function- Other 5 hrs of sleep a night Current Functional Impairments (Reported) Functional Limitations- Other Interrupted sleeping every 2-3 hrs. Sleeps for a total of 7 hrs if able to sit up in a recliner to reduce shoulder pain, then can fall back asleep or sleeps in the recliner chair, nightly. Personal Factors Other Personal Factors That May Effect Chronic pain, Arthritis, Therapy/Recovery Diabetes type II. PT-OP-C Subjective Start: 07/02/23 16:35 Freq: Status: Active Protocol: Document 08/02/23 14:27 SP (Rec: 08/02/23 15:48 SP [id number]) OP-PT Subjective Patient Comments Patient Comments Pt reports still having pain L shld side sleeping but trying to sleep with pillow support to decrease pain. Her shld pain waking her up approx every 2 hrs. PT-OP-H Neuro Start: 07/02/23 16:35 Freq: Status: Active Protocol: Document 07/19/23 11:23 LRN (Rec: 07/19/23 17:28 LRN [id number]) Sensation Evaluation Comments Summary Comments Gross sensation in UE's assessed and found to be WNL. PT-OP-J Posture/Palpation/Skin Start: 07/02/23 16:35 Freq: Status: Active Protocol: Document 07/19/23 11:23 LRN (Rec: 07/19/23 17:28 LRN [id number]) Posture Evaluation Position Standing Head/C-Spine Posture Forward Head T-Spine Posture Increased Kyphosis L-Spine Posture Increased Lordosis Shoulder Posture (L) Rounded,(R) Rounded,(L) Forward,(R) Forward,(L) Elevated Scapula Posture (L) Elevated Pelvis Posture (R) PSIS Posterior Comments Posture Comments C-Curve of lower thoracic & lumbar spine with apex on the left. Iliac Crest height is level. Palpation Assessment Location Hips Palpation Location Bilateral Greater Trochanters & IT Bands Palpation Findings Tenderness Low Back Palpation Location PSIS's, QL at Iliac Crest, Lateral Sacral borders Palpation Findings Soft Tissue Tightness, Tenderness Thoracic region Palpation Location Upper T/S paraspinals & chest at lower sternum Palpation Findings Soft Tissue Tightness, Tenderness Neck Palpation Location L>R UT, L Paraspinals Palpation Findings Soft Tissue Tightness, Tenderness Shoulders Palpation Location Around shoulder joints Palpation Findings Tenderness PT-OP-K Range of Motion Start: 07/02/23 16:35 Freq: Status: Active Protocol: Document 07/19/23 11:23 LRN (Rec: 07/19/23 17:28 LRN [id number]) Cervical Spine Range of Motion Cervical Spine Active Degrees Testing Position Sitting Flexion 38 Extension 42 Rotation Left 49 Rotation Right 47 Lateral Flexion Left 19 Lateral Flexion Right 25 ROM Limitations Pain Shoulder Goniometric Range of Motion Shoulder Right Active Testing Position Sitting Flexion 132 Abduction 110 External Rotation at 0 degrees Abduction 45 Internal Rotation Behind Back (text) Middle of buttock Comments Reaching behind head: Back of head Left Active Shoulder ROM WFL No Testing Position Sitting Flexion 110 Abduction 63 External Rotation at 0 degrees Abduction 35 Internal Rotation Behind Back (text) Lateral hip Comments Reaching behind head: Top of head. Hip Goniometric Range of Motion Hip Right Passive Hip ROM WFL No Testing Position Supine Internal Rotation 30 External Rotation 55 Comments PROM Limited by pain. Left Passive Hip ROM WFL No Testing Position Supine Internal Rotation 10 External Rotation 50 Comments PROM Limited by pain. PT-OP-L Special Tests Start: 07/02/23 16:35 Freq: Status: Active Protocol: Document 07/22/23 14:17 LRN (Rec: 07/22/23 16:19 LRN [id number]) Special Tests Cervical Spine Special Tests Upper Limb Tension Test Test Results + bilaterally with R worse than L. Comments RUE very limited in mobility, LUE mostly limited with radial nerve glide. PT-OP-M Strength Start: 07/02/23 16:35 Freq: Status: Active Protocol: Document 07/19/23 11:23 LRN (Rec: 07/19/23 17:28 LRN [id number]) Cervical Spine Strength Cervical Spine Manual Muscle Testing Testing Position Sitting Flexion (C1-2) 5 Normal Extension 5 Normal Rotation Left 5 Normal Rotation Right 5 Normal Lateral Flexion Left (C3) 5 Normal Lateral Flexion Right (C3) 5 Normal Shoulder Strength Shoulder Manual Muscle Testing Right Flexion 4 Good Abduction (C5) 3 Fair External Rotation 4+ Good+ Internal Rotation 4+ Good+ Comments All motions tested created shoulder pain. Left Flexion 5 Normal Abduction (C5) 3 Fair External Rotation 4+ Good+ Internal Rotation 5 Normal Comments All motions tested created shoulder pain. PT-OP-Q Treatments Start: 07/02/23 16:35 Freq: Status: Active Protocol: Document 08/02/23 14:27 SP (Rec: 08/02/23 15:48 SP [id number]) Therapeutic Exercises Supine Exercises Shoulder Flex Supine Exercise Name Active Shoulder flex stretch Side bilateral Reps/Minutes 10x Comments Cuing to control motion to painfree range. Scapular Protraction Supine Exercise Name Scapular protraction Side bilateral Equipment Used use model for visual mechanics Reps/Minutes 10x 2 Comments Cuing to keep elbows straight and control return Active shoulder ER Supine Exercise Name Active shoulder ER Side bilateral Resistance AROM- LUE more limited than R Reps/Minutes 5-10 SH, x10 Comments Cuing to move in painfree range and keep elbows into sides. Sidelying Exercises open book Sidelying Exercise Name initiated in PT good response - add next tx to HEP w/ HO Side bilateral Resistance AROM Reps/Minutes x8 reps Comments small painfree range, able progress range with reps, cued head turn w/ arm Standing Exercises codman pendulum Standing Exercise Name standing vs seated- CW/CCW Side bilateral Resistance wt shift stand RUE PROM), PROM use opp UE (seated) Reps/Minutes 2 min total end tx Comments challenge wt shift PROM stand, better able PROM using LUE move RUE swing Self-Care/Home Management Treatment Education Patient Education Home Exercise Program,Joint Protection Other Education Extensive time spent educated side sleep positions to minimize pain while on side, small pillow/folded towel at lateral scap/upper ribcage, between BLEs, between BUEs- good feedback response able lay longer without pain starting 10 min+. Ed anatomy using shoulder model for mechanics of HEP FF, serratus press for support to allow UE ROM and strengthening progression in future tx. PT-OP-T Assessment and Plan Start: 07/02/23 16:35 Freq: Status: Active Protocol: Document 08/02/23 14:27 SP (Rec: 08/02/23 15:48 SP [id number]) Physical Therapy Assessment Goals Five Impairment LE (Greater trochanter, hamstring, quad, knee) pain E Learning Manager Goal (LTG) Address & create LE pain goals after therapy focusing on shoulder rehab. LTG Duration 10/17/23 (12 weeks) Three Impairment Decreased bilateral shoulder mobility Short Term Goal (STG) Improve ROM to put in hair clips without noticing shoulder discomfort. STG Duration 08/18/23 (4 weeks) E Learning Manager Goal (LTG) Improve ROM to remove T-Shirt blouse with an overhead or partially overhead motion. LTG Duration 09/17/23 (7 weeks) One Impairment Pt lacks appropriate shoulder/ thoracic spine HEP. Short Term Goal (STG) Pt will be able to put on underarm deodorant with ease. STG Duration 09/17/23 (7 weeks) E Learning Manager Goal (LTG) Pt will be independent in a self care HEP of shoulder/ thoracic/back/hip/knee ROM and strengthening ex's. 07/22/23: Shldr HEP: Codman's, AROM: ER, Flex, protraction; Resisted abby scapular stab: Shdr Ext & ADD. LTG Duration 10/17/23 (12 weeks) progressed 07/22/23 Four Impairment LB pain Impairment Thigh pain 5-6/10 with occasional 8-9 shooting pain. LEFS is 44 with one question unanswered (40-59% impaired with score 32-47) E Learning Manager Goal (LTG) Address & create LB pain goals after therapy focusing on shoulder rehab. LTG Duration 10/17/23 (12 weeks) Two Impairment Decreased shoulder stability and strength limiting function Impairment Pt limited in ability to lift L arm to put on underarm deodorant with ease. Pt limited in ability to sleep at night. Pt wakes after 2-3 hours of sleep and usually gets up to lay on recliner chair for another couple of hours of sleep. Short Term Goal (STG) Pt will be educated in best nighttime sleeping positions. 07/22/23: Pt educated in best nighttime sleep positions in sidelie & supine, using pillows to support her UE's and back. 08/02/23: time spent use pillow / towel support for side sleeping, see self care details. STG Duration 08/02/23 (2 weeks) (07/22/23: MET GOAL) E Learning Manager Goal (LTG) Pt will be able to sleep 4-5 hrs at night before getting up to use BR, and return to sleep without having to sleep in recliner chair. 08/02/23: time spent use pillow / towel support for side sleeping, see self care details. LTG Duration 09/17/23 (7 weeks) updated: 08/02/23 Assessment Summary Assessment Pt good feedback to education and use of folded towel under lateral scapula side sleeping to unweight shoulders into table, able lay 10 min + on L during tx. Rest of tx focused on HEP review for proper form and understanding what the mechanics are during ex to understand ex selection and benefits getting. Pt reported L shoulder felt better end tx with better confidence with HEP. Physical Therapy Plan Frequency and Duration Frequency of Treatment 2x/Week Duration of treatment (weeks) 12 Plan of Care Start Date 07/19/23 Plan of Care End Date 10/17/23 Therapeutic Interventions Therapeutic Interventions Home Exercise Program,Joint Mobilizations,Manual Therapy, Neuromuscular Re-education, Patient/Caregiver Education, Self-Care/Home Management,Soft Tissue Mobilization, Therapeutic Activities, Therapeutic Exercises Modalities Cold Pack/Ice Massage,Hot Packs,Iontophoresis,Ultrasound Other Therapeutic Interventions 4 mg/mL Dexamethasone with Sodium Phosphate. Next Visit Focus/Plan Next Note Type Treatment Note Next Visit Plan Review open book/give HO for HEP, seated pendulum, theraband ex. POC: Note: Minimize ex's for home due to pt's difficulty in doing home ex's. Next: Start shoulder PROM/AROM as tolerated, and home ex's and as needed, gentle neural glides. Initiate postural ex 's and RC strengthening. Educate pt in proper posturing and body mechanics for ADLS w /RC protection in mind, and self care pain mgmt techniques . Encourage pt to be consistent with HEP. Assess LB/hips - ROM, strength & special test for neuro involvement. After shoulder rehab reassess for new POC. POC: L shoulder RC rehab, R shoulder arthritis pain rehab; LB/Hip therapy POC when shoulder rehab has been addressed.
--- NOTE | 2023-08-06 17:45 | PT.OTN ---
Current Diagnoses Pain in right shoulder (08/06/23) Pain in left shoulder (08/06/23) Other kyphosis, thoracic region (08/06/23) Postural lordosis, thoracolumbar region (08/06/23) Postural lordosis, lumbosacral region (08/06/23) Cervicalgia (08/06/23) Muscle weakness (generalized) (08/06/23) Pain in right arm (08/06/23) Pain in left arm (08/06/23) Pain in right leg (08/06/23) Pain in left leg (08/06/23) Physical Therapy Treatment Note PT-OP-A Visit Information Start: 07/02/23 16:35 Freq: Status: Active Protocol: Document 08/06/23 07:57 LRN (Rec: 08/06/23 09:40 LRN [id number]) Out-Patient Physical Therapy Visit Information Visit Information Visit Type Treatment Note Visit Start Time 08:54 Visit Stop Time 09:35 Total Visit Minutes 41 Visit Number 4 Evaluation Information Evaluation Date 07/19/23 Precautions Precautions Arthritis, back pain Diabete's type II, Hypothyroidism, L broken ankle and tibia 2003. PT-OP-B Current Condition Start: 07/02/23 16:35 Freq: Status: Active Protocol: Document 07/19/23 11:23 LRN (Rec: 07/19/23 17:28 LRN [id number]) Current Condition History of Current Condition Onset Date ~05/03/23 Current Complaints Lan shoulder pain is interrupting sleep. Pain across LB, hip, thighs. History of Current Condition States her main focus is her Lan Shoulder pain (L stiffer than R). In last 2 months started to wake her up during the night (can sleep 5 hrs with rub cream). Had good mobility until April (went to [place] in March). She reports decreased shoulder ROM because difficulty putting on /off Tshirt and tucking shirt in the back into pants. Less bothersome, but present is pain across the Iliac crests with tightness and pain at IT Bands and quads. Sometimes sciatic pain down both legs. Neck is not bother her today. Prior Treatments and Tests X-rays (02/18/23): L shoulder - mod OA, Neck - DDD throughout spine with suggestion of bilateral foraminal stenosis at C4-5 through C6-7 levels. Lumbar Spine - DDD throughout spine, 8 mm anterolisthesis of L4 on L5. Future Testing and Treatments Planned Dr. Martinez appt 07/22/23 for GI dysfunction. Treatment Goals Patient/Caregiver Goals Pt goal:1) Sleep 4-5 hrs at night before getting up to use BR, and return to sleep for another couple of hours. 2) Improve ROM to take off T- Shirt blouse from an overhead or partial overhead postion and put in hair clips without noticing the shoulders discomfot and be able to lift L arm to put on deodorant with ease. Pt goals for LB/LE's: to address/create after shoulder rehab. Prior Functional Status Baseline Function- Other 5 hrs of sleep a night Current Functional Impairments (Reported) Functional Limitations- Other Interrupted sleeping every 2-3 hrs. Sleeps for a total of 7 hrs if able to sit up in a recliner to reduce shoulder pain, then can fall back asleep or sleeps in the recliner chair, nightly. Personal Factors Other Personal Factors That May Effect Chronic pain, Arthritis, Therapy/Recovery Diabetes type II. PT-OP-C Subjective Start: 07/02/23 16:35 Freq: Status: Active Protocol: Document 08/06/23 07:57 LRN (Rec: 08/06/23 09:40 LRN [id number]) OP-PT Subjective Patient Comments Patient Comments States she found a little pillow for sleeping and when using it was able to sleep and not wake due to the pain. Massage therapist asked if she could have a gait analysis. She wears shoe inserts in L LE due to short LLE. States she has hardware in LLE and inserts into both feet due to over pronation. States after returning from son's visit she was not able to exercise; therefore she is stiff again. PT-OP-H Neuro Start: 07/02/23 16:35 Freq: Status: Active Protocol: Document 07/19/23 11:23 LRN (Rec: 07/19/23 17:28 LRN [id number]) Sensation Evaluation Comments Summary Comments Gross sensation in UE's assessed and found to be WNL. PT-OP-J Posture/Palpation/Skin Start: 07/02/23 16:35 Freq: Status: Active Protocol: Document 07/19/23 11:23 LRN (Rec: 07/19/23 17:28 LRN [id number]) Posture Evaluation Position Standing Head/C-Spine Posture Forward Head T-Spine Posture Increased Kyphosis L-Spine Posture Increased Lordosis Shoulder Posture (L) Rounded,(R) Rounded,(L) Forward,(R) Forward,(L) Elevated Scapula Posture (L) Elevated Pelvis Posture (R) PSIS Posterior Comments Posture Comments C-Curve of lower thoracic & lumbar spine with apex on the left. Iliac Crest height is level. Palpation Assessment Location Hips Palpation Location Bilateral Greater Trochanters & IT Bands Palpation Findings Tenderness Low Back Palpation Location PSIS's, QL at Iliac Crest, Lateral Sacral borders Palpation Findings Soft Tissue Tightness, Tenderness Thoracic region Palpation Location Upper T/S paraspinals & chest at lower sternum Palpation Findings Soft Tissue Tightness, Tenderness Neck Palpation Location L>R UT, L Paraspinals Palpation Findings Soft Tissue Tightness, Tenderness Shoulders Palpation Location Around shoulder joints Palpation Findings Tenderness PT-OP-K Range of Motion Start: 07/02/23 16:35 Freq: Status: Active Protocol: Document 07/19/23 11:23 LRN (Rec: 07/19/23 17:28 LRN [id number]) Cervical Spine Range of Motion Cervical Spine Active Degrees Testing Position Sitting Flexion 38 Extension 42 Rotation Left 49 Rotation Right 47 Lateral Flexion Left 19 Lateral Flexion Right 25 ROM Limitations Pain Shoulder Goniometric Range of Motion Shoulder Right Active Testing Position Sitting Flexion 132 Abduction 110 External Rotation at 0 degrees Abduction 45 Internal Rotation Behind Back (text) Middle of buttock Comments Reaching behind head: Back of head Left Active Shoulder ROM WFL No Testing Position Sitting Flexion 110 Abduction 63 External Rotation at 0 degrees Abduction 35 Internal Rotation Behind Back (text) Lateral hip Comments Reaching behind head: Top of head. Hip Goniometric Range of Motion Hip Right Passive Hip ROM WFL No Testing Position Supine Internal Rotation 30 External Rotation 55 Comments PROM Limited by pain. Left Passive Hip ROM WFL No Testing Position Supine Internal Rotation 10 External Rotation 50 Comments PROM Limited by pain. PT-OP-L Special Tests Start: 07/02/23 16:35 Freq: Status: Active Protocol: Document 07/22/23 14:17 LRN (Rec: 07/22/23 16:19 LRN [id number]) Special Tests Cervical Spine Special Tests Upper Limb Tension Test Test Results + bilaterally with R worse than L. Comments RUE very limited in mobility, LUE mostly limited with radial nerve glide. PT-OP-M Strength Start: 07/02/23 16:35 Freq: Status: Active Protocol: Document 07/19/23 11:23 LRN (Rec: 07/19/23 17:28 LRN [id number]) Cervical Spine Strength Cervical Spine Manual Muscle Testing Testing Position Sitting Flexion (C1-2) 5 Normal Extension 5 Normal Rotation Left 5 Normal Rotation Right 5 Normal Lateral Flexion Left (C3) 5 Normal Lateral Flexion Right (C3) 5 Normal Shoulder Strength Shoulder Manual Muscle Testing Right Flexion 4 Good Abduction (C5) 3 Fair External Rotation 4+ Good+ Internal Rotation 4+ Good+ Comments All motions tested created shoulder pain. Left Flexion 5 Normal Abduction (C5) 3 Fair External Rotation 4+ Good+ Internal Rotation 5 Normal Comments All motions tested created shoulder pain. PT-OP-Q Treatments Start: 07/02/23 16:35 Freq: Status: Active Protocol: Document 08/06/23 07:57 LRN (Rec: 08/06/23 09:40 LRN [id number]) Therapeutic Exercises Supine Exercises Scapular retraction Supine Exercise Name Scapular retraction & postural awareness training Side bilateral Equipment Used Pillow under elbows Reps/Minutes 5-10 SH, x 4 min Comments Cuing to keep chin tucked with shoulder retraction Shoulder Flex Supine Exercise Name Active Shoulder flex stretch Side bilateral Reps/Minutes 10x Comments Cuing to control motion to painfree range. Active shoulder ER Supine Exercise Name Active shoulder ER Side bilateral Resistance AROM- LUE more limited than R Equipment Used Pillow under elbows Reps/Minutes 5-10 SH, x 6 min Comments Cuing to move in painfree range and keep elbows into sides. 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 Side bilateral Resistance AROM Reps/Minutes 10x Comments small painfree range, able progress range with reps, cued head turn w/ arm Standing Exercises codman pendulum Standing Exercise Name standing vs seated- CW/CCW Side bilateral Resistance wt shift stand RUE PROM), PROM use opp UE (seated) Reps/Minutes 2 min Comments challenge wt shift PROM stand, better able PROM using LUE move RUE swing Self-Care/Home Management Treatment Education Patient Education Posture Other Education Pt education in shoulder anatomy, using model, to describe mechanics of onset of pain at elbow with shoulder ER in supine. Activities Self-Care/Home Management Activities Issued & reveiwed HEP: supine : active shoulder ER/IR, Flex, & sup/sit scap retract. Issued & verbally reviewed Total Posture Improvement Ex of hooklie arms at 45 deg's and pressing from LB to UB into floor. PT-OP-T Assessment and Plan Start: 07/02/23 16:35 Freq: Status: Active Protocol: Document 08/06/23 07:57 LRN (Rec: 08/06/23 09:40 LRN [id number]) Physical Therapy Assessment Goals Five Impairment LE (Greater trochanter, hamstring, quad, knee) pain Prison Goal (LTG) Address & create LE pain goals after therapy focusing on shoulder rehab. LTG Duration 10/17/23 (12 weeks) Three Impairment Decreased bilateral shoulder mobility Short Term Goal (STG) Improve ROM to put in hair clips without noticing shoulder discomfort. STG Duration 08/18/23 (4 weeks) Day Care Attendant Goal (LTG) Improve ROM to remove T-Shirt blouse with an overhead or partially overhead motion. LTG Duration 09/17/23 (7 weeks) One Impairment Pt lacks appropriate shoulder/ thoracic spine HEP. Short Term Goal (STG) Pt will be able to put on underarm deodorant with ease. STG Duration 09/17/23 (7 weeks) Prison Goal (LTG) Pt will be independent in a self care HEP of shoulder/ thoracic/back/hip/knee ROM and strengthening ex's. 07/22/23: Shldr HEP: Codman's, AROM: ER, Flex, protraction; Resisted lan scapular stab: Shdr Ext & ADD. 08/06/23: HEP: Shoulder AROM : supine windshield wipe & flex; sup & standing scap pinches. LTG Duration 10/17/23 (12 weeks) progressed 08/06/23 Four Impairment LB pain Impairment Thigh pain 5-6/10 with occasional 8-9 shooting pain. LEFS is 44 with one question unanswered (40-59% impaired with score 32-47) Prison Goal (LTG) Address & create LB pain goals after therapy focusing on shoulder rehab. LTG Duration 10/17/23 (12 weeks) Two Impairment Decreased shoulder stability and strength limiting function Impairment Pt limited in ability to lift L arm to put on underarm deodorant with ease. Pt limited in ability to sleep at night. Pt wakes after 2-3 hours of sleep and usually gets up to lay on recliner chair for another couple of hours of sleep. Short Term Goal (STG) Pt will be educated in best nighttime sleeping positions. 07/22/23: Pt educated in best nighttime sleep positions in sidelie & supine, using pillows to support her UE's and back. 08/02/23: time spent use pillow / towel support for side sleeping, see self care details. STG Duration 08/02/23 (2 weeks) (07/22/23: MET GOAL) Prison Goal (LTG) Pt will be able to sleep 4-5 hrs at night before getting up to use BR, and return to sleep without having to sleep in recliner chair. 08/02/23: time spent use pillow / towel support for side sleeping, see self care details. LTG Duration 09/17/23 (7 weeks) updated: 08/02/23 Progress Towards Goals Progress Comments Progressed HEP. Assessment Summary Assessment Pt noting decreased pain in R> L shoulder, although she has pain all over and once after massage she felt her R arm was like normal (lasting a couple hours). Was + with all ULNT tests with RUE worse than LUE. Pt hasn't been doing other exercise while visiting son; therefore stiff all over. Good tolerance to ex with ability to perform w/o increased shoulder pain. Physical Therapy Plan Frequency and Duration Frequency of Treatment 2x/Week Duration of treatment (weeks) 12 Plan of Care Start Date 07/19/23 Plan of Care End Date 10/17/23 Next Visit Focus/Plan Next Note Type Treatment Note Next Visit Plan Review HEP issued: Total Posture Improvement Ex, seated pendulums, & theraband ex. (Note: Minimize ex's for home due to pt's difficulty in doing home ex's). Next: Encourage pt to be consistent with HEP. Assess STG 1, LTG 2, & goal #3. Progress shoulder PROM/AROM as tolerated. Add Gentle neural glides. Initiate postural ex's and RC strengthening. Educate pt in proper posturing and body mechanics for ADLS w /RC protection in mind, and self care pain mgmt techniques . Assess LB/hips - ROM, strength & special test for neuro involvement. After shoulder rehab reassess for new POC. POC: L shoulder RC rehab, R shoulder arthritis pain rehab; LB/Hip therapy POC when shoulder rehab has been addressed.
--- NOTE | 2023-08-13 09:45 | PT.OTN ---
Current Diagnoses Pain in right shoulder (08/13/23) Pain in left shoulder (08/13/23) Other kyphosis, thoracic region (08/13/23) Postural lordosis, thoracolumbar region (08/13/23) Postural lordosis, lumbosacral region (08/13/23) Cervicalgia (08/13/23) Muscle weakness (generalized) (08/13/23) Pain in right arm (08/13/23) Pain in left arm (08/13/23) Pain in right leg (08/13/23) Pain in left leg (08/13/23) Physical Therapy Treatment Note PT-OP-A Visit Information Start: 07/02/23 16:35 Freq: Status: Active Protocol: Document 08/13/23 09:03 SP (Rec: 08/13/23 09:53 SP [id number]) Out-Patient Physical Therapy Visit Information Visit Information Visit Type Treatment Note Visit Start Time 09:03 Visit Stop Time 09:45 Total Visit Minutes 42 Visit Number 5 Number of TANK CREWMEMBER Visits 1 Evaluation Information Evaluation Date 07/19/23 Precautions Precautions Arthritis, back pain Diabete's type II, Hypothyroidism, L broken ankle and tibia 2003. PT-OP-B Current Condition Start: 07/02/23 16:35 Freq: Status: Active Protocol: Document 07/19/23 11:23 LRN (Rec: 07/19/23 17:28 LRN [id number]) Current Condition History of Current Condition Onset Date ~05/03/23 Current Complaints Abby shoulder pain is interrupting sleep. Pain across LB, hip, thighs. History of Current Condition States her main focus is her Abby Shoulder pain (L stiffer than R). In last 2 months started to wake her up during the night (can sleep 5 hrs with rub cream). Had good mobility until April (went to [place] in March). She reports decreased shoulder ROM because difficulty putting on /off Tshirt and tucking shirt in the back into pants. Less bothersome, but present is pain across the Iliac crests with tightness and pain at IT Bands and quads. Sometimes sciatic pain down both legs. Neck is not bother her today. Prior Treatments and Tests X-rays (02/18/23): L shoulder - mod OA, Neck - DDD throughout spine with suggestion of bilateral foraminal stenosis at C4-5 through C6-7 levels. Lumbar Spine - DDD throughout spine, 8 mm anterolisthesis of L4 on L5. Future Testing and Treatments Planned Dr. Juan parmart 07/22/23 for GI dysfunction. Treatment Goals Patient/Caregiver Goals Pt goal:1) Sleep 4-5 hrs at night before getting up to use BR, and return to sleep for another couple of hours. 2) Improve ROM to take off T- Shirt blouse from an overhead or partial overhead postion and put in hair clips without noticing the shoulders discomfot and be able to lift L arm to put on deodorant with ease. Pt goals for LB/LE's: to address/create after shoulder rehab. Prior Functional Status Baseline Function- Other 5 hrs of sleep a night Current Functional Impairments (Reported) Functional Limitations- Other Interrupted sleeping every 2-3 hrs. Sleeps for a total of 7 hrs if able to sit up in a recliner to reduce shoulder pain, then can fall back asleep or sleeps in the recliner chair, nightly. Personal Factors Other Personal Factors That May Effect Chronic pain, Arthritis, Therapy/Recovery Diabetes type II. PT-OP-C Subjective Start: 07/02/23 16:35 Freq: Status: Active Protocol: Document 08/13/23 09:03 SP (Rec: 08/13/23 09:53 SP [id number]) OP-PT Subjective Patient Comments Patient Comments Pt reports wants to review HEP HOs for what can do home. PT-OP-H Neuro Start: 07/02/23 16:35 Freq: Status: Active Protocol: Document 07/19/23 11:23 LRN (Rec: 07/19/23 17:28 LRN [id number]) Sensation Evaluation Comments Summary Comments Gross sensation in UE's assessed and found to be WNL. PT-OP-J Posture/Palpation/Skin Start: 07/02/23 16:35 Freq: Status: Active Protocol: Document 07/19/23 11:23 LRN (Rec: 07/19/23 17:28 LRN [id number]) Posture Evaluation Position Standing Head/C-Spine Posture Forward Head T-Spine Posture Increased Kyphosis L-Spine Posture Increased Lordosis Shoulder Posture (L) Rounded,(R) Rounded,(L) Forward,(R) Forward,(L) Elevated Scapula Posture (L) Elevated Pelvis Posture (R) PSIS Posterior Comments Posture Comments C-Curve of lower thoracic & lumbar spine with apex on the left. Iliac Crest height is level. Palpation Assessment Location Hips Palpation Location Bilateral Greater Trochanters & IT Bands Palpation Findings Tenderness Low Back Palpation Location PSIS's, QL at Iliac Crest, Lateral Sacral borders Palpation Findings Soft Tissue Tightness, Tenderness Thoracic region Palpation Location Upper T/S paraspinals & chest at lower sternum Palpation Findings Soft Tissue Tightness, Tenderness Neck Palpation Location L>R UT, L Paraspinals Palpation Findings Soft Tissue Tightness, Tenderness Shoulders Palpation Location Around shoulder joints Palpation Findings Tenderness PT-OP-K Range of Motion Start: 07/02/23 16:35 Freq: Status: Active Protocol: Document 07/19/23 11:23 LRN (Rec: 07/19/23 17:28 LRN [id number]) Cervical Spine Range of Motion Cervical Spine Active Degrees Testing Position Sitting Flexion 38 Extension 42 Rotation Left 49 Rotation Right 47 Lateral Flexion Left 19 Lateral Flexion Right 25 ROM Limitations Pain Shoulder Goniometric Range of Motion Shoulder Right Active Testing Position Sitting Flexion 132 Abduction 110 External Rotation at 0 degrees Abduction 45 Internal Rotation Behind Back (text) Middle of buttock Comments Reaching behind head: Back of head Left Active Shoulder ROM WFL No Testing Position Sitting Flexion 110 Abduction 63 External Rotation at 0 degrees Abduction 35 Internal Rotation Behind Back (text) Lateral hip Comments Reaching behind head: Top of head. Hip Goniometric Range of Motion Hip Right Passive Hip ROM WFL No Testing Position Supine Internal Rotation 30 External Rotation 55 Comments PROM Limited by pain. Left Passive Hip ROM WFL No Testing Position Supine Internal Rotation 10 External Rotation 50 Comments PROM Limited by pain. PT-OP-L Special Tests Start: 07/02/23 16:35 Freq: Status: Active Protocol: Document 07/22/23 14:17 LRN (Rec: 07/22/23 16:19 LRN [id number]) Special Tests Cervical Spine Special Tests Upper Limb Tension Test Test Results + bilaterally with R worse than L. Comments RUE very limited in mobility, LUE mostly limited with radial nerve glide. PT-OP-M Strength Start: 07/02/23 16:35 Freq: Status: Active Protocol: Document 07/19/23 11:23 LRN (Rec: 07/19/23 17:28 LRN [id number]) Cervical Spine Strength Cervical Spine Manual Muscle Testing Testing Position Sitting Flexion (C1-2) 5 Normal Extension 5 Normal Rotation Left 5 Normal Rotation Right 5 Normal Lateral Flexion Left (C3) 5 Normal Lateral Flexion Right (C3) 5 Normal Shoulder Strength Shoulder Manual Muscle Testing Right Flexion 4 Good Abduction (C5) 3 Fair External Rotation 4+ Good+ Internal Rotation 4+ Good+ Comments All motions tested created shoulder pain. Left Flexion 5 Normal Abduction (C5) 3 Fair External Rotation 4+ Good+ Internal Rotation 5 Normal Comments All motions tested created shoulder pain. PT-OP-Q Treatments Start: 07/02/23 16:35 Freq: Status: Active Protocol: Document 08/13/23 09:03 SP (Rec: 08/13/23 09:53 SP [id number]) Therapeutic Exercises Supine Exercises Scapular retraction Supine Exercise Name Scapular retraction & postural awareness training Side bilateral Resistance (posture pres) Equipment Used Pillow under elbows Reps/Minutes 5-10 SH, x 4 min Comments Cuing to keep chin tucked with shoulder retraction Shoulder Flex Supine Exercise Name Active Shoulder flex stretch Side bilateral Reps/Minutes 4 min Comments Cuing to control motion to painfree range. Active shoulder ER Supine Exercise Name Active shoulder ER Side bilateral Resistance AROM- LUE more limited than R Equipment Used Pillow under elbows Reps/Minutes 5-10 SH, x 6 min Comments Cuing to move in painfree range and keep elbows into sides. Standing Exercises shoulder adduction Standing Exercise Name HEP reviewed Side bilateral Resistance OTB Equipment Used anchored over door Reps/Minutes x10 Comments cued range tolerant, limit scapular snap feeling (is not painful/just aware shoulder extension Standing Exercise Name HEP reviewed Side bilateral Resistance OTB Equipment Used anchored waist height Reps/Minutes x10 Comments cued range tolerant, limit scapular snap feeling (is not painful/just aware codman pendulum Standing Exercise Name seated- CW/CCW Side bilateral Resistance wt shift stand RUE PROM), PROM use opp UE (seated) Reps/Minutes 2 min Comments good response - will do this position home Self-Care/Home Management Treatment Education Other Education little time discussion use of air mattress for sleeping and pillows helpful sleeping and decrease pain. PT-OP-T Assessment and Plan Start: 07/02/23 16:35 Freq: Status: Active Protocol: Document 08/13/23 09:03 SP (Rec: 08/13/23 09:53 SP [id number]) Physical Therapy Assessment Goals Five Impairment LE (Greater trochanter, hamstring, quad, knee) pain Facility Maintenance Helper Goal (LTG) Address & create LE pain goals after therapy focusing on shoulder rehab. LTG Duration 10/17/23 (12 weeks) Three Impairment Decreased bilateral shoulder mobility Short Term Goal (STG) Improve ROM to put in hair clips without noticing shoulder discomfort. STG Duration 08/18/23 (4 weeks) Mcfp Goal (LTG) Improve ROM to remove T-Shirt blouse with an overhead or partially overhead motion. LTG Duration 09/17/23 (7 weeks) One Impairment Pt lacks appropriate shoulder/ thoracic spine HEP. Short Term Goal (STG) Pt will be able to put on underarm deodorant with ease. STG Duration 09/17/23 (7 weeks) Facility Maintenance Helper Goal (LTG) Pt will be independent in a self care HEP of shoulder/ thoracic/back/hip/knee ROM and strengthening ex's. 07/22/23: Shldr HEP: Codman's, AROM: ER, Flex, protraction; Resisted abby scapular stab: Shdr Ext & ADD. 08/06/23: HEP: Shoulder AROM : supine windshield wipe & flex; sup & standing scap pinches. LTG Duration 10/17/23 (12 weeks) progressed 08/06/23 Four Impairment LB pain Impairment Thigh pain 5-6/10 with occasional 8-9 shooting pain. LEFS is 44 with one question unanswered (40-59% impaired with score 32-47) Facility Maintenance Helper Goal (LTG) Address & create LB pain goals after therapy focusing on shoulder rehab. LTG Duration 10/17/23 (12 weeks) Two Impairment Decreased shoulder stability and strength limiting function Impairment Pt limited in ability to lift L arm to put on underarm deodorant with ease. Pt limited in ability to sleep at night. Pt wakes after 2-3 hours of sleep and usually gets up to lay on recliner chair for another couple of hours of sleep. Short Term Goal (STG) Pt will be educated in best nighttime sleeping positions. 07/22/23: Pt educated in best nighttime sleep positions in sidelie & supine, using pillows to support her UE's and back. 08/02/23: time spent use pillow / towel support for side sleeping, see self care details. STG Duration 08/02/23 (2 weeks) (07/22/23: MET GOAL) Mcfp Goal (LTG) Pt will be able to sleep 4-5 hrs at night before getting up to use BR, and return to sleep without having to sleep in recliner chair. 08/02/23: time spent use pillow / towel support for side sleeping, see self care details. LTG Duration 09/17/23 (7 weeks) updated: 08/02/23 Assessment Summary Assessment Pt time spent cues for set up/ form during HEP. Noted clicking post scap but not painful during TB ex, cued perform range painfree, good response and muscle tiring end tx. She reported felt more confident with exercises did today. Physical Therapy Plan Frequency and Duration Frequency of Treatment 2x/Week Duration of treatment (weeks) 12 Plan of Care Start Date 07/19/23 Plan of Care End Date 10/17/23 Therapeutic Interventions Therapeutic Interventions Home Exercise Program,Joint Mobilizations,Manual Therapy, Neuromuscular Re-education, Patient/Caregiver Education, Self-Care/Home Management,Soft Tissue Mobilization, Therapeutic Activities, Therapeutic Exercises Modalities Cold Pack/Ice Massage,Hot Packs,Iontophoresis,Ultrasound Other Therapeutic Interventions 4 mg/mL Dexamethasone with Sodium Phosphate. Next Visit Focus/Plan Next Note Type Treatment Note Next Visit Plan Review HEP issued: Total Posture Improvement Ex, seated pendulums, & theraband ex. (Note: Minimize ex's for home due to pt's difficulty in doing home ex's). Next: Encourage pt to be consistent with HEP. Assess STG 1, LTG 2, & goal #3. Progress shoulder PROM/AROM as tolerated. Add Gentle neural glides. Initiate postural ex's and RC strengthening. Educate pt in proper posturing and body mechanics for ADLS w /RC protection in mind, and self care pain mgmt techniques . Assess LB/hips - ROM, strength & special test for neuro involvement. After shoulder rehab reassess for new POC. POC: L shoulder RC rehab, R shoulder arthritis pain rehab; LB/Hip therapy POC when shoulder rehab has been addressed.
--- NOTE | 2023-08-20 14:22 | PT.OTN ---
Current Diagnoses Pain in right shoulder (08/20/23) Pain in left shoulder (08/20/23) Other kyphosis, thoracic region (08/20/23) Postural lordosis, thoracolumbar region (08/20/23) Postural lordosis, lumbosacral region (08/20/23) Cervicalgia (08/20/23) Muscle weakness (generalized) (08/20/23) Pain in right arm (08/20/23) Pain in left arm (08/20/23) Pain in right leg (08/20/23) Pain in left leg (08/20/23) Physical Therapy Treatment Note PT-OP-A Visit Information Start: 07/02/23 16:35 Freq: Status: Active Protocol: Document 08/20/23 13:36 SP (Rec: 08/20/23 14:47 SP [id number]) Out-Patient Physical Therapy Visit Information Visit Information Visit Type Treatment Note Visit Start Time 13:36 Visit Stop Time 14:22 Total Visit Minutes 46 Visit Number 6 Number of CARD CLOTHIER Visits 2 Evaluation Information Evaluation Date 07/19/23 Precautions Precautions Arthritis, back pain Diabete's type II, Hypothyroidism, L broken ankle and tibia 2003. PT-OP-B Current Condition Start: 07/02/23 16:35 Freq: Status: Active Protocol: Document 07/19/23 11:23 LRN (Rec: 07/19/23 17:28 LRN [id number]) Current Condition History of Current Condition Onset Date ~05/03/23 Current Complaints Lan shoulder pain is interrupting sleep. Pain across LB, hip, thighs. History of Current Condition States her main focus is her Lan Shoulder pain (L stiffer than R). In last 2 months started to wake her up during the night (can sleep 5 hrs with rub cream). Had good mobility until April (went to [place] in March). She reports decreased shoulder ROM because difficulty putting on /off Tshirt and tucking shirt in the back into pants. Less bothersome, but present is pain across the Iliac crests with tightness and pain at IT Bands and quads. Sometimes sciatic pain down both legs. Neck is not bother her today. Prior Treatments and Tests X-rays (02/18/23): L shoulder - mod OA, Neck - DDD throughout spine with suggestion of bilateral foraminal stenosis at C4-5 through C6-7 levels. Lumbar Spine - DDD throughout spine, 8 mm anterolisthesis of L4 on L5. Future Testing and Treatments Planned Dr. Martinez appt 07/22/23 for GI dysfunction. Treatment Goals Patient/Caregiver Goals Pt goal:1) Sleep 4-5 hrs at night before getting up to use BR, and return to sleep for another couple of hours. 2) Improve ROM to take off T- Shirt blouse from an overhead or partial overhead postion and put in hair clips without noticing the shoulders discomfot and be able to lift L arm to put on deodorant with ease. Pt goals for LB/LE's: to address/create after shoulder rehab. Prior Functional Status Baseline Function- Other 5 hrs of sleep a night Current Functional Impairments (Reported) Functional Limitations- Other Interrupted sleeping every 2-3 hrs. Sleeps for a total of 7 hrs if able to sit up in a recliner to reduce shoulder pain, then can fall back asleep or sleeps in the recliner chair, nightly. Personal Factors Other Personal Factors That May Effect Chronic pain, Arthritis, Therapy/Recovery Diabetes type II. PT-OP-C Subjective Start: 07/02/23 16:35 Freq: Status: Active Protocol: Document 08/20/23 13:36 SP (Rec: 08/20/23 14:47 SP [id number]) OP-PT Subjective Patient Comments Patient Comments Pt reports sleeping on air mattress and helping with alot less pain in her shoulders, only waking up to go to bathroom not due to shld pain. She stated got immunizations in both arms so sore coming in. She is pleased with her AROM able to reach her LUE over R side of her head to wash her hair and suprised reaching up into the cupboards now. Her helping with massage when needed. PT-OP-H Neuro Start: 07/02/23 16:35 Freq: Status: Active Protocol: Document 07/19/23 11:23 LRN (Rec: 07/19/23 17:28 LRN [id number]) Sensation Evaluation Comments Summary Comments Gross sensation in UE's assessed and found to be WNL. PT-OP-J Posture/Palpation/Skin Start: 07/02/23 16:35 Freq: Status: Active Protocol: Document 07/19/23 11:23 LRN (Rec: 07/19/23 17:28 LRN [id number]) Posture Evaluation Position Standing Head/C-Spine Posture Forward Head T-Spine Posture Increased Kyphosis L-Spine Posture Increased Lordosis Shoulder Posture (L) Rounded,(R) Rounded,(L) Forward,(R) Forward,(L) Elevated Scapula Posture (L) Elevated Pelvis Posture (R) PSIS Posterior Comments Posture Comments C-Curve of lower thoracic & lumbar spine with apex on the left. Iliac Crest height is level. Palpation Assessment Location Hips Palpation Location Bilateral Greater Trochanters & IT Bands Palpation Findings Tenderness Low Back Palpation Location PSIS's, QL at Iliac Crest, Lateral Sacral borders Palpation Findings Soft Tissue Tightness, Tenderness Thoracic region Palpation Location Upper T/S paraspinals & chest at lower sternum Palpation Findings Soft Tissue Tightness, Tenderness Neck Palpation Location L>R UT, L Paraspinals Palpation Findings Soft Tissue Tightness, Tenderness Shoulders Palpation Location Around shoulder joints Palpation Findings Tenderness PT-OP-K Range of Motion Start: 07/02/23 16:35 Freq: Status: Active Protocol: Document 07/19/23 11:23 LRN (Rec: 07/19/23 17:28 LRN [id number]) Cervical Spine Range of Motion Cervical Spine Active Degrees Testing Position Sitting Flexion 38 Extension 42 Rotation Left 49 Rotation Right 47 Lateral Flexion Left 19 Lateral Flexion Right 25 ROM Limitations Pain Shoulder Goniometric Range of Motion Shoulder Right Active Testing Position Sitting Flexion 132 Abduction 110 External Rotation at 0 degrees Abduction 45 Internal Rotation Behind Back (text) Middle of buttock Comments Reaching behind head: Back of head Left Active Shoulder ROM WFL No Testing Position Sitting Flexion 110 Abduction 63 External Rotation at 0 degrees Abduction 35 Internal Rotation Behind Back (text) Lateral hip Comments Reaching behind head: Top of head. Hip Goniometric Range of Motion Hip Right Passive Hip ROM WFL No Testing Position Supine Internal Rotation 30 External Rotation 55 Comments PROM Limited by pain. Left Passive Hip ROM WFL No Testing Position Supine Internal Rotation 10 External Rotation 50 Comments PROM Limited by pain. PT-OP-L Special Tests Start: 07/02/23 16:35 Freq: Status: Active Protocol: Document 07/22/23 14:17 LRN (Rec: 07/22/23 16:19 LRN [id number]) Special Tests Cervical Spine Special Tests Upper Limb Tension Test Test Results + bilaterally with R worse than L. Comments RUE very limited in mobility, LUE mostly limited with radial nerve glide. PT-OP-M Strength Start: 07/02/23 16:35 Freq: Status: Active Protocol: Document 07/19/23 11:23 LRN (Rec: 07/19/23 17:28 LRN [id number]) Cervical Spine Strength Cervical Spine Manual Muscle Testing Testing Position Sitting Flexion (C1-2) 5 Normal Extension 5 Normal Rotation Left 5 Normal Rotation Right 5 Normal Lateral Flexion Left (C3) 5 Normal Lateral Flexion Right (C3) 5 Normal Shoulder Strength Shoulder Manual Muscle Testing Right Flexion 4 Good Abduction (C5) 3 Fair External Rotation 4+ Good+ Internal Rotation 4+ Good+ Comments All motions tested created shoulder pain. Left Flexion 5 Normal Abduction (C5) 3 Fair External Rotation 4+ Good+ Internal Rotation 5 Normal Comments All motions tested created shoulder pain. PT-OP-Q Treatments Start: 07/02/23 16:35 Freq: Status: Active Protocol: Document 08/20/23 13:36 SP (Rec: 08/20/23 14:47 SP [id number]) Therapeutic Exercises Supine Exercises HADD<> HABD Supine Exercise Name initiated in PT- check again next tx to add to HEP Side bilateral Resistance AROM Reps/Minutes x10 reps Comments improve post manual - good slight stretch lat arm, better feel HABD Scapular retraction Supine Exercise Name Scapular retraction & postural awareness training Side bilateral Resistance (posture pres) Equipment Used Pillow under elbows Reps/Minutes 10 reps x10 SH Comments cued chin tuck, good form carryover Shoulder Flex Supine Exercise Name Active Shoulder flex stretch hold Side bilateral Resistance AROM Reps/Minutes 10 rep x3 SH Comments Cuing to control motion to painfree range. Active shoulder ER Supine Exercise Name Active shoulder ER Side bilateral Resistance AROM- LUE more limited than R Equipment Used Pillow under elbows Reps/Minutes 10 reps x5 SH Comments Cuing to move in painfree range and keep elbows into sides. Sitting Exercises eccentric FF, ABD Sitting Exercise Name initiated in PT: pull down with eccentric FF, ABD Side bilateral Resistance R>L AAROM w/ use of TB #2 orange Reps/Minutes x10 reps each Comments little sore end feel R>L, cued slow control for assist ROM OH Standing Exercises shoulder adduction Standing Exercise Name HEP reviewed Side bilateral Resistance OTB Equipment Used anchored over door Reps/Minutes x12 Comments cued painfree range, slow controlled codman pendulum Standing Exercise Name seated- CW/CCW Side bilateral Resistance wt shift stand RUE PROM), PROM use opp UE (seated) Reps/Minutes 2 min Comments good response - will do this position home Manual Therapy Treatment Soft Tissue Mobilization shld STMs Body Location R: subscap, distal lat, deltoid, tricep, bicep, teres Mobilization Type Strumming Intensity/Depth Moderate Body Position Hooklying Comments improved ROM FFF w/ manual Joint Mobilizations GH Jt Joint L Direction inferior glide Grade II Body Position Hooklying Comments that feels good, relaxing Manual Techniques PROM Type FF, ABD, ER Body Location L shld Body Position Hooklying Reps/Duration 3 min Comments provided slight GH inferior glide into FF, improved PROM post manual PT-OP-T Assessment and Plan Start: 07/02/23 16:35 Freq: Status: Active Protocol: Document 08/20/23 13:36 SP (Rec: 08/20/23 14:47 SP [id number]) Physical Therapy Assessment Goals Five Impairment LE (Greater trochanter, hamstring, quad, knee) pain Retirement Goal (LTG) Address & create LE pain goals after therapy focusing on shoulder rehab. LTG Duration 10/17/23 (12 weeks) Three Impairment Decreased bilateral shoulder mobility Short Term Goal (STG) Improve ROM to put in hair clips without noticing shoulder discomfort. 08/20/23: progressing: pt demonstrates able to reach over head to opposite LUE not and reach up in to cupboard with less pain. STG Duration 08/18/23 (4 weeks) 08/20/23 Head Rigger Goal (LTG) Improve ROM to remove T-Shirt blouse with an overhead or partially overhead motion. LTG Duration 09/17/23 (7 weeks) One Impairment Pt lacks appropriate shoulder/ thoracic spine HEP. Short Term Goal (STG) Pt will be able to put on underarm deodorant with ease. STG Duration 09/17/23 (7 weeks) Retirement Goal (LTG) Pt will be independent in a self care HEP of shoulder/ thoracic/back/hip/knee ROM and strengthening ex's. 07/22/23: Shldr HEP: Codman's, AROM: ER, Flex, protraction; Resisted lan scapular stab: Shdr Ext & ADD. 08/06/23: HEP: Shoulder AROM : supine windshield wipe & flex; sup & standing scap pinches. LTG Duration 10/17/23 (12 weeks) progressed 08/06/23 Four Impairment LB pain Impairment Thigh pain 5-6/10 with occasional 8-9 shooting pain. LEFS is 44 with one question unanswered (40-59% impaired with score 32-47) Head Rigger Goal (LTG) Address & create LB pain goals after therapy focusing on shoulder rehab. LTG Duration 10/17/23 (12 weeks) Two Impairment Decreased shoulder stability and strength limiting function Impairment Pt limited in ability to lift L arm to put on underarm deodorant with ease. Pt limited in ability to sleep at night. Pt wakes after 2-3 hours of sleep and usually gets up to lay on recliner chair for another couple of hours of sleep. Short Term Goal (STG) Pt will be educated in best nighttime sleeping positions. 07/22/23: Pt educated in best nighttime sleep positions in sidelie & supine, using pillows to support her UE's and back. 08/02/23: time spent use pillow / towel support for side sleeping, see self care details. STG Duration 08/02/23 (2 weeks) (07/22/23: MET GOAL) Retirement Goal (LTG) Pt will be able to sleep 4-5 hrs at night before getting up to use BR, and return to sleep without having to sleep in recliner chair. 08/02/23: time spent use pillow / towel support for side sleeping, see self care details. LTG Duration 09/17/23 (7 weeks) updated: 08/02/23 Assessment Summary Assessment Pt reports and demonstrates progress in ROM OH with less pain post manual and exercises have given for HEP. She reports little sore after trial AAROM OH FF, ABD TB support but not pain. She declined modalities end tx, stated will use CP later if needed. SHe plans to incorporated massage into her team more often than 1x/mo. Physical Therapy Plan Frequency and Duration Frequency of Treatment 2x/Week Duration of treatment (weeks) 12 Plan of Care Start Date 07/19/23 Plan of Care End Date 10/17/23 Therapeutic Interventions Therapeutic Interventions Home Exercise Program,Joint Mobilizations,Manual Therapy, Neuromuscular Re-education, Patient/Caregiver Education, Self-Care/Home Management,Soft Tissue Mobilization, Therapeutic Activities, Therapeutic Exercises Modalities Cold Pack/Ice Massage,Hot Packs,Iontophoresis,Ultrasound Other Therapeutic Interventions 4 mg/mL Dexamethasone with Sodium Phosphate. Next Visit Focus/Plan Next Note Type Treatment Note Next Visit Plan Redo supine HABD<>HADD AROM if ok then add to HEP. Ask how felt after last tx.Review HEP issued: Total Posture Improvement Ex, seated pendulums, & theraband ex. (Note: Minimize ex's for home due to pt's difficulty in doing home ex's). Next: Encourage pt to be consistent with HEP. Assess STG 1, LTG 2, & goal #3. Progress shoulder PROM/AROM as tolerated. Add Gentle neural glides. Initiate postural ex's and RC strengthening. Educate pt in proper posturing and body mechanics for ADLS w /RC protection in mind, and self care pain mgmt techniques . Assess LB/hips - ROM, strength & special test for neuro involvement. After shoulder rehab reassess for new POC. POC: L shoulder RC rehab, R shoulder arthritis pain rehab; LB/Hip therapy POC when shoulder rehab has been addressed.
--- NOTE | 2023-08-27 12:48 | PT.OTN ---
Current Diagnoses Pain in right shoulder (08/27/23) Pain in left shoulder (08/27/23) Other kyphosis, thoracic region (08/27/23) Postural lordosis, thoracolumbar region (08/27/23) Postural lordosis, lumbosacral region (08/27/23) Cervicalgia (08/27/23) Muscle weakness (generalized) (08/27/23) Pain in right arm (08/27/23) Pain in left arm (08/27/23) Pain in right leg (08/27/23) Pain in left leg (08/27/23) Physical Therapy Treatment Note PT-OP-A Visit Information Start: 07/02/23 16:35 Freq: Status: Active Protocol: Document 08/27/23 12:03 SP (Rec: 08/27/23 12:49 SP [id number]) Out-Patient Physical Therapy Visit Information Visit Information Visit Type Treatment Note Visit Start Time 12:03 Visit Stop Time 12:48 Total Visit Minutes 45 Visit Number 7 Number of CERTIFIED HISTOLOGIC TECHNICIAN Visits 3 Evaluation Information Evaluation Date 07/19/23 Precautions Precautions Arthritis, back pain Diabete's type II, Hypothyroidism, L broken ankle and tibia 2003. PT-OP-B Current Condition Start: 07/02/23 16:35 Freq: Status: Active Protocol: Document 07/19/23 11:23 LRN (Rec: 07/19/23 17:28 LRN [id number]) Current Condition History of Current Condition Onset Date ~05/03/23 Current Complaints Lan shoulder pain is interrupting sleep. Pain across LB, hip, thighs. History of Current Condition States her main focus is her Lan Shoulder pain (L stiffer than R). In last 2 months started to wake her up during the night (can sleep 5 hrs with rub cream). Had good mobility until April (went to [place] in March). She reports decreased shoulder ROM because difficulty putting on /off Tshirt and tucking shirt in the back into pants. Less bothersome, but present is pain across the Iliac crests with tightness and pain at IT Bands and quads. Sometimes sciatic pain down both legs. Neck is not bother her today. Prior Treatments and Tests X-rays (02/18/23): L shoulder - mod OA, Neck - DDD throughout spine with suggestion of bilateral foraminal stenosis at C4-5 through C6-7 levels. Lumbar Spine - DDD throughout spine, 8 mm anterolisthesis of L4 on L5. Future Testing and Treatments Planned Dr. Martinez appt 07/22/23 for GI dysfunction. Treatment Goals Patient/Caregiver Goals Pt goal:1) Sleep 4-5 hrs at night before getting up to use BR, and return to sleep for another couple of hours. 2) Improve ROM to take off T- Shirt blouse from an overhead or partial overhead postion and put in hair clips without noticing the shoulders discomfot and be able to lift L arm to put on deodorant with ease. Pt goals for LB/LE's: to address/create after shoulder rehab. Prior Functional Status Baseline Function- Other 5 hrs of sleep a night Current Functional Impairments (Reported) Functional Limitations- Other Interrupted sleeping every 2-3 hrs. Sleeps for a total of 7 hrs if able to sit up in a recliner to reduce shoulder pain, then can fall back asleep or sleeps in the recliner chair, nightly. Personal Factors Other Personal Factors That May Effect Chronic pain, Arthritis, Therapy/Recovery Diabetes type II. PT-OP-C Subjective Start: 07/02/23 16:35 Freq: Status: Active Protocol: Document 08/27/23 12:03 SP (Rec: 08/27/23 12:49 SP [id number]) OP-PT Subjective Patient Comments Patient Comments Pt reports wants to review supine shld ER HO to be sure doing correctly, states wording confusing and thought read moving wrist but states moving arm. She states when performs ER give little increase ROM but irritation after and can last into the evening and affect her sleeping. PT-OP-H Neuro Start: 07/02/23 16:35 Freq: Status: Active Protocol: Document 07/19/23 11:23 LRN (Rec: 07/19/23 17:28 LRN [id number]) Sensation Evaluation Comments Summary Comments Gross sensation in UE's assessed and found to be WNL. PT-OP-J Posture/Palpation/Skin Start: 07/02/23 16:35 Freq: Status: Active Protocol: Document 07/19/23 11:23 LRN (Rec: 07/19/23 17:28 LRN [id number]) Posture Evaluation Position Standing Head/C-Spine Posture Forward Head T-Spine Posture Increased Kyphosis L-Spine Posture Increased Lordosis Shoulder Posture (L) Rounded,(R) Rounded,(L) Forward,(R) Forward,(L) Elevated Scapula Posture (L) Elevated Pelvis Posture (R) PSIS Posterior Comments Posture Comments C-Curve of lower thoracic & lumbar spine with apex on the left. Iliac Crest height is level. Palpation Assessment Location Hips Palpation Location Bilateral Greater Trochanters & IT Bands Palpation Findings Tenderness Low Back Palpation Location PSIS's, QL at Iliac Crest, Lateral Sacral borders Palpation Findings Soft Tissue Tightness, Tenderness Thoracic region Palpation Location Upper T/S paraspinals & chest at lower sternum Palpation Findings Soft Tissue Tightness, Tenderness Neck Palpation Location L>R UT, L Paraspinals Palpation Findings Soft Tissue Tightness, Tenderness Shoulders Palpation Location Around shoulder joints Palpation Findings Tenderness PT-OP-K Range of Motion Start: 07/02/23 16:35 Freq: Status: Active Protocol: Document 07/19/23 11:23 LRN (Rec: 07/19/23 17:28 LRN [id number]) Cervical Spine Range of Motion Cervical Spine Active Degrees Testing Position Sitting Flexion 38 Extension 42 Rotation Left 49 Rotation Right 47 Lateral Flexion Left 19 Lateral Flexion Right 25 ROM Limitations Pain Shoulder Goniometric Range of Motion Shoulder Right Active Testing Position Sitting Flexion 132 Abduction 110 External Rotation at 0 degrees Abduction 45 Internal Rotation Behind Back (text) Middle of buttock Comments Reaching behind head: Back of head Left Active Shoulder ROM WFL No Testing Position Sitting Flexion 110 Abduction 63 External Rotation at 0 degrees Abduction 35 Internal Rotation Behind Back (text) Lateral hip Comments Reaching behind head: Top of head. Hip Goniometric Range of Motion Hip Right Passive Hip ROM WFL No Testing Position Supine Internal Rotation 30 External Rotation 55 Comments PROM Limited by pain. Left Passive Hip ROM WFL No Testing Position Supine Internal Rotation 10 External Rotation 50 Comments PROM Limited by pain. PT-OP-L Special Tests Start: 07/02/23 16:35 Freq: Status: Active Protocol: Document 07/22/23 14:17 LRN (Rec: 07/22/23 16:19 LRN [id number]) Special Tests Cervical Spine Special Tests Upper Limb Tension Test Test Results + bilaterally with R worse than L. Comments RUE very limited in mobility, LUE mostly limited with radial nerve glide. PT-OP-M Strength Start: 07/02/23 16:35 Freq: Status: Active Protocol: Document 07/19/23 11:23 LRN (Rec: 07/19/23 17:28 LRN [id number]) Cervical Spine Strength Cervical Spine Manual Muscle Testing Testing Position Sitting Flexion (C1-2) 5 Normal Extension 5 Normal Rotation Left 5 Normal Rotation Right 5 Normal Lateral Flexion Left (C3) 5 Normal Lateral Flexion Right (C3) 5 Normal Shoulder Strength Shoulder Manual Muscle Testing Right Flexion 4 Good Abduction (C5) 3 Fair External Rotation 4+ Good+ Internal Rotation 4+ Good+ Comments All motions tested created shoulder pain. Left Flexion 5 Normal Abduction (C5) 3 Fair External Rotation 4+ Good+ Internal Rotation 5 Normal Comments All motions tested created shoulder pain. PT-OP-Q Treatments Start: 07/02/23 16:35 Freq: Status: Active Protocol: Document 08/27/23 12:03 SP (Rec: 08/27/23 12:49 SP [id number]) Therapeutic Exercises Supine Exercises HADD<> HABD Supine Exercise Name reviewed for HEP Side bilateral Resistance AROM Reps/Minutes x10 reps Comments improve ADD post manual - good light stretch Shoulder Flex Supine Exercise Name Active Shoulder flex stretch hold Side bilateral Resistance AROM alternating Reps/Minutes 10 rep x3 SH Comments Cuing for slow painfree range, pause end feel for added stretch- impr rang. Active shoulder ER Supine Exercise Name Active shoulder ER Side bilateral Resistance AROM- LUE more limited than R Equipment Used Pillow under elbows Reps/Minutes 10 reps x5 SH Comments Cuing to move in painfree range and keep elbows into sides. Sidelying Exercises open book Sidelying Exercise Name Open Book Side bilateral Resistance AROM Reps/Minutes 10x Comments cued slow painfree ROM, improved L post manual Standing Exercises scap retraction Standing Exercise Name HEP reviewd Reps/Minutes 10 x10 Comments good form, painfree Manual Therapy Treatment Soft Tissue Mobilization shld STMs Body Location B: distal lat, deltoid, tricep , teres Mobilization Type Strumming,Sustained Pressure, Other Intensity/Depth Moderate Body Position Hooklying Comments improved ROM w/ manual STMs and MWM AAROM ROM FF, HABD<> HADD Joint Mobilizations L Scapulothoracic Direction retraction/depression, UR, DR with FF Comments with manual STMs improved ROM with HABD/ADD/ FF / GH Jt Joint R Direction inferior glide Grade II Body Position Hooklying Comments that feels good, relaxing PT-OP-T Assessment and Plan Start: 07/02/23 16:35 Freq: Status: Active Protocol: Document 08/27/23 12:03 SP (Rec: 08/27/23 12:49 SP [id number]) Physical Therapy Assessment Goals Five Impairment LE (Greater trochanter, hamstring, quad, knee) pain Special Officer Automat Goal (LTG) Address & create LE pain goals after therapy focusing on shoulder rehab. LTG Duration 10/17/23 (12 weeks) Three Impairment Decreased bilateral shoulder mobility Short Term Goal (STG) Improve ROM to put in hair clips without noticing shoulder discomfort. 08/20/23: progressing: pt demonstrates a ble to reach over head to opposite LUE not and reach up in to cupboard with less pain. 08/27/23: notes tightness but not as much pain after manual, HEP review. Discussed continue home. STG Duration 08/18/23 (4 weeks) 08/27/23 Special Officer Automat Goal (LTG) Improve ROM to remove T-Shirt blouse with an overhead or partially overhead motion. LTG Duration 09/17/23 (7 weeks) One Impairment Pt lacks appropriate shoulder/ thoracic spine HEP. Short Term Goal (STG) Pt will be able to put on underarm deodorant with ease. STG Duration 09/17/23 (7 weeks) [facility] Goal (LTG) Pt will be independent in a self care HEP of shoulder/ thoracic/back/hip/knee ROM and strengthening ex's. 07/22/23: Shldr HEP: Codman's, AROM: ER, Flex, protraction; Resisted lan scapular stab: Shdr Ext & ADD. 08/06/23: HEP: Shoulder AROM : supine windshield wipe & flex; sup & standing scap pinches. LTG Duration 10/17/23 (12 weeks) progressed 08/06/23 Four Impairment LB pain Impairment Thigh pain 5-6/10 with occasional 8-9 shooting pain. LEFS is 44 with one question unanswered (40-59% impaired with score 32-47) [facility] Goal (LTG) Address & create LB pain goals after therapy focusing on shoulder rehab. LTG Duration 10/17/23 (12 weeks) Two Impairment Decreased shoulder stability and strength limiting function Impairment Pt limited in ability to lift L arm to put on underarm deodorant with ease. Pt limited in ability to sleep at night. Pt wakes after 2-3 hours of sleep and usually gets up to lay on recliner chair for another couple of hours of sleep. Short Term Goal (STG) Pt will be educated in best nighttime sleeping positions. 07/22/23: Pt educated in best nighttime sleep positions in sidelie & supine, using pillows to support her UE's and back. 08/02/23: time spent use pillow / towel support for side sleeping, see self care details. 07/30/23: last 2 nights slept 4 hrs and no meds assist. STG Duration 08/02/23 (2 weeks) (07/22/23: MET GOAL) Special Officer Automat Goal (LTG) Pt will be able to sleep 4-5 hrs at night before getting up to use BR, and return to sleep without having to sleep in recliner chair. 08/02/23: time spent use pillow / towel support for side sleeping, see self care details. 08/27/23: progressing able to sleep for 4 hrs on air mattress before wakes up, did go to reclined remaining 2 hrs sleep, no meds assist for pain needed. LTG Duration 09/17/23 (7 weeks) updated: 08/27/23 Assessment Summary Assessment Pt reports increased AROM R and LUE HADD<>HABD post manual STMs and MWM and coming to sitting found able to sit taller with less tension on her back. Physical Therapy Plan Frequency and Duration Frequency of Treatment 2x/Week Duration of treatment (weeks) 12 Plan of Care Start Date 07/19/23 Plan of Care End Date 10/17/23 Therapeutic Interventions Therapeutic Interventions Home Exercise Program,Joint Mobilizations,Manual Therapy, Neuromuscular Re-education, Patient/Caregiver Education, Self-Care/Home Management,Soft Tissue Mobilization, Therapeutic Activities, Therapeutic Exercises Modalities Cold Pack/Ice Massage,Hot Packs,Iontophoresis,Ultrasound Other Therapeutic Interventions 4 mg/mL Dexamethasone with Sodium Phosphate. Next Visit Focus/Plan Next Note Type Treatment Note Next Visit Plan Redo supine HABD<>HADD AROM if ok then add to HEP. Ask how felt after last tx.Review HEP issued: Total Posture Improvement Ex, seated pendulums, & theraband ex. (Note: Minimize ex's for home due to pt's difficulty in doing home ex's). Next: Encourage pt to be consistent with HEP. Assess STG 1, LTG 2, & goal #3. Progress shoulder PROM/AROM as tolerated. Add Gentle neural glides. Initiate postural ex's and RC strengthening. Educate pt in proper posturing and body mechanics for ADLS w /RC protection in mind, and self care pain mgmt techniques . Assess LB/hips - ROM, strength & special test for neuro involvement. After shoulder rehab reassess for new POC. POC: L shoulder RC rehab, R shoulder arthritis pain rehab; LB/Hip therapy POC when shoulder rehab has been addressed.
--- NOTE | 2023-09-03 13:50 | PT.OTN ---
Current Diagnoses Pain in right shoulder (09/03/23) Pain in left shoulder (09/03/23) Other kyphosis, thoracic region (09/03/23) Postural lordosis, thoracolumbar region (09/03/23) Postural lordosis, lumbosacral region (09/03/23) Cervicalgia (09/03/23) Muscle weakness (generalized) (09/03/23) Pain in right arm (09/03/23) Pain in left arm (09/03/23) Pain in right leg (09/03/23) Pain in left leg (09/03/23) Physical Therapy Treatment Note PT-OP-A Visit Information Start: 07/02/23 16:35 Freq: Status: Active Protocol: Document 09/03/23 13:06 SP (Rec: 09/03/23 13:51 SP [id number]) Out-Patient Physical Therapy Visit Information Visit Information Visit Type Treatment Note Visit Start Time 13:06 Visit Stop Time 13:50 Total Visit Minutes 44 Visit Number 8 Number of [facility] ATTENDANT Visits 4 Precautions Precautions Arthritis, back pain Diabete's type II, Hypothyroidism, L broken ankle and tibia 2003. PT-OP-B Current Condition Start: 07/02/23 16:35 Freq: Status: Active Protocol: Document 07/19/23 11:23 LRN (Rec: 07/19/23 17:28 LRN [id number]) Current Condition History of Current Condition Onset Date ~05/03/23 Current Complaints Lan shoulder pain is interrupting sleep. Pain across LB, hip, thighs. History of Current Condition States her main focus is her Lan Shoulder pain (L stiffer than R). In last 2 months started to wake her up during the night (can sleep 5 hrs with rub cream). Had good mobility until April (went to [place] in March). She reports decreased shoulder ROM because difficulty putting on /off Tshirt and tucking shirt in the back into pants. Less bothersome, but present is pain across the Iliac crests with tightness and pain at IT Bands and quads. Sometimes sciatic pain down both legs. Neck is not bother her today. Prior Treatments and Tests X-rays (02/18/23): L shoulder - mod OA, Neck - DDD throughout spine with suggestion of bilateral foraminal stenosis at C4-5 through C6-7 levels. Lumbar Spine - DDD throughout spine, 8 mm anterolisthesis of L4 on L5. Future Testing and Treatments Planned Dr. Martinez appt 07/22/23 for GI dysfunction. Treatment Goals Patient/Caregiver Goals Pt goal:1) Sleep 4-5 hrs at night before getting up to use BR, and return to sleep for another couple of hours. 2) Improve ROM to take off T- Shirt blouse from an overhead or partial overhead postion and put in hair clips without noticing the shoulders discomfot and be able to lift L arm to put on deodorant with ease. Pt goals for LB/LE's: to address/create after shoulder rehab. Prior Functional Status Baseline Function- Other 5 hrs of sleep a night Current Functional Impairments (Reported) Functional Limitations- Other Interrupted sleeping every 2-3 hrs. Sleeps for a total of 7 hrs if able to sit up in a recliner to reduce shoulder pain, then can fall back asleep or sleeps in the recliner chair, nightly. Personal Factors Other Personal Factors That May Effect Chronic pain, Arthritis, Therapy/Recovery Diabetes type II. PT-OP-C Subjective Start: 07/02/23 16:35 Freq: Status: Active Protocol: Document 09/03/23 13:06 SP (Rec: 09/03/23 13:51 SP [id number]) OP-PT Subjective Patient Comments Patient Comments Pt arrives with , wants us to know how to help provide manual at home carryover if needed. PT-OP-H Neuro Start: 07/02/23 16:35 Freq: Status: Active Protocol: Document 07/19/23 11:23 LRN (Rec: 07/19/23 17:28 LRN [id number]) Sensation Evaluation Comments Summary Comments Gross sensation in UE's assessed and found to be WNL. PT-OP-J Posture/Palpation/Skin Start: 07/02/23 16:35 Freq: Status: Active Protocol: Document 07/19/23 11:23 LRN (Rec: 07/19/23 17:28 LRN [id number]) Posture Evaluation Position Standing Head/C-Spine Posture Forward Head T-Spine Posture Increased Kyphosis L-Spine Posture Increased Lordosis Shoulder Posture (L) Rounded,(R) Rounded,(L) Forward,(R) Forward,(L) Elevated Scapula Posture (L) Elevated Pelvis Posture (R) PSIS Posterior Comments Posture Comments C-Curve of lower thoracic & lumbar spine with apex on the left. Iliac Crest height is level. Palpation Assessment Location Hips Palpation Location Bilateral Greater Trochanters & IT Bands Palpation Findings Tenderness Low Back Palpation Location PSIS's, QL at Iliac Crest, Lateral Sacral borders Palpation Findings Soft Tissue Tightness, Tenderness Thoracic region Palpation Location Upper T/S paraspinals & chest at lower sternum Palpation Findings Soft Tissue Tightness, Tenderness Neck Palpation Location L>R UT, L Paraspinals Palpation Findings Soft Tissue Tightness, Tenderness Shoulders Palpation Location Around shoulder joints Palpation Findings Tenderness PT-OP-K Range of Motion Start: 07/02/23 16:35 Freq: Status: Active Protocol: Document 07/19/23 11:23 LRN (Rec: 07/19/23 17:28 LRN [id number]) Cervical Spine Range of Motion Cervical Spine Active Degrees Testing Position Sitting Flexion 38 Extension 42 Rotation Left 49 Rotation Right 47 Lateral Flexion Left 19 Lateral Flexion Right 25 ROM Limitations Pain Shoulder Goniometric Range of Motion Shoulder Right Active Testing Position Sitting Flexion 132 Abduction 110 External Rotation at 0 degrees Abduction 45 Internal Rotation Behind Back (text) Middle of buttock Comments Reaching behind head: Back of head Left Active Shoulder ROM WFL No Testing Position Sitting Flexion 110 Abduction 63 External Rotation at 0 degrees Abduction 35 Internal Rotation Behind Back (text) Lateral hip Comments Reaching behind head: Top of head. Hip Goniometric Range of Motion Hip Right Passive Hip ROM WFL No Testing Position Supine Internal Rotation 30 External Rotation 55 Comments PROM Limited by pain. Left Passive Hip ROM WFL No Testing Position Supine Internal Rotation 10 External Rotation 50 Comments PROM Limited by pain. PT-OP-L Special Tests Start: 07/02/23 16:35 Freq: Status: Active Protocol: Document 07/22/23 14:17 LRN (Rec: 07/22/23 16:19 LRN [id number]) Special Tests Cervical Spine Special Tests Upper Limb Tension Test Test Results + bilaterally with R worse than L. Comments RUE very limited in mobility, LUE mostly limited with radial nerve glide. PT-OP-M Strength Start: 07/02/23 16:35 Freq: Status: Active Protocol: Document 07/19/23 11:23 LRN (Rec: 07/19/23 17:28 LRN [id number]) Cervical Spine Strength Cervical Spine Manual Muscle Testing Testing Position Sitting Flexion (C1-2) 5 Normal Extension 5 Normal Rotation Left 5 Normal Rotation Right 5 Normal Lateral Flexion Left (C3) 5 Normal Lateral Flexion Right (C3) 5 Normal Shoulder Strength Shoulder Manual Muscle Testing Right Flexion 4 Good Abduction (C5) 3 Fair External Rotation 4+ Good+ Internal Rotation 4+ Good+ Comments All motions tested created shoulder pain. Left Flexion 5 Normal Abduction (C5) 3 Fair External Rotation 4+ Good+ Internal Rotation 5 Normal Comments All motions tested created shoulder pain. PT-OP-Q Treatments Start: 07/02/23 16:35 Freq: Status: Active Protocol: Document 09/03/23 13:06 SP (Rec: 09/03/23 13:51 SP [id number]) Therapeutic Exercises Supine Exercises HADD<> HABD Supine Exercise Name DC easy Scapular retraction Supine Exercise Name DC easy Active shoulder ER Supine Exercise Name DC easy Sidelying Exercises shld ER Sidelying Exercise Name added to HEP Side right Resistance AROM>1# DB Equipment Used towel roll under arm Reps/Minutes x10 Comments cued slow painfree ROM. ABD Sidelying Exercise Name added to HEP Side right Resistance AROM>1# DB Reps/Minutes 10 Comments cued slow painfree ROM. open book Sidelying Exercise Name Open Book- HEP reviewed Side right Resistance AROM> 1# DB Reps/Minutes 10x Comments cued slow painfree ROM, improved L post manual Standing Exercises wall walk/door way stretch Standing Exercise Name added FF Side bilateral Reps/Minutes 3 reps, 3 breath hold shoulder adduction Standing Exercise Name HEP reviewed- discussed keep doing HEP Side bilateral Resistance OTB Equipment Used anchored over door Reps/Minutes x12 Comments cued painfree range, slow controlled shoulder extension Standing Exercise Name HEP reviewed- discussed keep doing HEP Side bilateral Resistance OTB Equipment Used anchored waist height Reps/Minutes x10 Comments cued range tolerant, limit scapular snap feeling (is not painful/just aware codman pendulum Standing Exercise Name seated- CW/CCW Side bilateral Resistance wt shift stand RUE PROM), PROM use opp UE (seated) Reps/Minutes 2 min Comments good response - will do this position home Manual Therapy Treatment Soft Tissue Mobilization shld STMs Body Location B: distal lat, deltoid, tricep , teres Mobilization Type Strumming,Sustained Pressure, Other Intensity/Depth Moderate Body Position Hooklying Comments improved ROM w/ manual STMs and MWM AAROM ROM FF, HABD<> HADD Joint Mobilizations L Scapulothoracic Direction retraction/depression, UR, with FF Comments with manual STMs improved ROM with HABD/ADD/ FF / PT-OP-T Assessment and Plan Start: 07/02/23 16:35 Freq: Status: Active Protocol: Document 09/03/23 13:06 SP (Rec: 09/03/23 13:51 SP [id number]) Physical Therapy Assessment Goals Five Impairment LE (Greater trochanter, hamstring, quad, knee) pain [facility] Goal (LTG) Address & create LE pain goals after therapy focusing on shoulder rehab. LTG Duration 10/17/23 (12 weeks) Three Impairment Decreased bilateral shoulder mobility Short Term Goal (STG) Improve ROM to put in hair clips without noticing shoulder discomfort. 08/20/23: progressing: pt demonstrates a ble to reach over head to opposite LUE not and reach up in to cupboard with less pain. 08/27/23: notes tightness but not as much pain after manual, HEP review. Discussed continue home. 09/03/23: GOAL MET: able to put in hair clips self. STG Duration 08/18/23 GOAL MET 09/03/23 Zumba Instructor Goal (LTG) Improve ROM to remove T-Shirt blouse with an overhead or partially overhead motion. 09/03/23: pt is able to reachover top of her head to touch opposite side now. LTG Duration 09/17/23 (7 weeks) progressing 09/03/23 One Impairment Pt lacks appropriate shoulder/ thoracic spine HEP. Short Term Goal (STG) Pt will be able to put on underarm deodorant with ease. STG Duration 09/17/23 (7 weeks) Zumba Instructor Goal (LTG) Pt will be independent in a self care HEP of shoulder/ thoracic/back/hip/knee ROM and strengthening ex's. 07/22/23: Shldr HEP: Codman's, AROM: ER, Flex, protraction; Resisted lan scapular stab: Shdr Ext & ADD. 08/06/23: HEP: Shoulder AROM : supine windshield wipe & flex; sup & standing scap pinches. 09/03/23: added side abd, open book, ER 1# DB. LTG Duration 10/17/23 (12 weeks) progressed 09/03/23 Four Impairment LB pain Impairment Thigh pain 5-6/10 with occasional 8-9 shooting pain. LEFS is 44 with one question unanswered (40-59% impaired with score 32-47) Zumba Instructor Goal (LTG) Address & create LB pain goals after therapy focusing on shoulder rehab. LTG Duration 10/17/23 (12 weeks) Two Impairment Decreased shoulder stability and strength limiting function Impairment Pt limited in ability to lift L arm to put on underarm deodorant with ease. Pt limited in ability to sleep at night. Pt wakes after 2-3 hours of sleep and usually gets up to lay on recliner chair for another couple of hours of sleep. Short Term Goal (STG) Pt will be educated in best nighttime sleeping positions. 07/22/23: Pt educated in best nighttime sleep positions in sidelie & supine, using pillows to support her UE's and back. 08/02/23: time spent use pillow / towel support for side sleeping, see self care details. 07/30/23: last 2 nights slept 4 hrs and no meds assist. STG Duration 08/02/23 (2 weeks) (07/22/23: MET GOAL) Zumba Instructor Goal (LTG) Pt will be able to sleep 4-5 hrs at night before getting up to use BR, and return to sleep without having to sleep in recliner chair. 08/02/23: time spent use pillow / towel support for side sleeping, see self care details. 08/27/23: progressing able to sleep for 4 hrs on air mattress before wakes up, did go to reclined remaining 2 hrs sleep, no meds assist for pain needed. LTG Duration 09/17/23 (7 weeks) updated: 08/27/23 Assessment Summary Assessment Tx focused on manual with education of anatomy, GH and scapulothoracic senior maintenance mechanic AROM withpt and . good understanding manual support at home vs pt use ball on wall STMs as needed. Started to condense HEP, discontinued supine HEP to easy. Pt tolerated increase resistance to sidelying open book, ABD and ER with cues for scap stabilization and mobility. Physical Therapy Plan Frequency and Duration Frequency of Treatment 2x/Week Duration of treatment (weeks) 12 Plan of Care Start Date 07/19/23 Plan of Care End Date 10/17/23 Therapeutic Interventions Therapeutic Interventions Home Exercise Program,Joint Mobilizations,Manual Therapy, Neuromuscular Re-education, Patient/Caregiver Education, Self-Care/Home Management,Soft Tissue Mobilization, Therapeutic Activities, Therapeutic Exercises Modalities Cold Pack/Ice Massage,Hot Packs,Iontophoresis,Ultrasound Other Therapeutic Interventions 4 mg/mL Dexamethasone with Sodium Phosphate. Next Visit Focus/Plan Next Note Type Treatment Note Next Visit Plan Redo supine HABD<>HADD AROM if ok then add to HEP. Ask how felt after last tx.Review HEP issued: Total Posture Improvement Ex, seated pendulums, & theraband ex. (Note: Minimize ex's for home due to pt's difficulty in doing home ex's). Next: Encourage pt to be consistent with HEP. Assess STG 1, LTG 2, & goal #3. Progress shoulder PROM/AROM as tolerated. Add Gentle neural glides. Initiate postural ex's and RC strengthening. Educate pt in proper posturing and body mechanics for ADLS w /RC protection in mind, and self care pain mgmt techniques . Assess LB/hips - ROM, strength & special test for neuro involvement. After shoulder rehab reassess for new POC. POC: L shoulder RC rehab, R shoulder arthritis pain rehab; LB/Hip therapy POC when shoulder rehab has been addressed.
--- NOTE | 2023-09-03 13:50 | PT.OTN ---
Current Diagnoses Pain in right shoulder (09/03/23) Pain in left shoulder (09/03/23) Other kyphosis, thoracic region (09/03/23) Postural lordosis, thoracolumbar region (09/03/23) Postural lordosis, lumbosacral region (09/03/23) Cervicalgia (09/03/23) Muscle weakness (generalized) (09/03/23) Pain in right arm (09/03/23) Pain in left arm (09/03/23) Pain in right leg (09/03/23) Pain in left leg (09/03/23) Physical Therapy Treatment Note PT-OP-A Visit Information Start: 07/02/23 16:35 Freq: Status: Active Protocol: Document 09/03/23 13:06 SP (Rec: 09/03/23 13:51 SP [id number]) Out-Patient Physical Therapy Visit Information Visit Information Visit Type Treatment Note Visit Start Time 13:06 Visit Stop Time 13:50 Total Visit Minutes 44 Visit Number 8 Number of OFFICE REP Visits 4 Precautions Precautions Arthritis, back pain Diabete's type II, Hypothyroidism, L broken ankle and tibia 2003. PT-OP-B Current Condition Start: 07/02/23 16:35 Freq: Status: Active Protocol: Document 07/19/23 11:23 LRN (Rec: 07/19/23 17:28 LRN [id number]) Current Condition History of Current Condition Onset Date ~05/03/23 Current Complaints Lan shoulder pain is interrupting sleep. Pain across LB, hip, thighs. History of Current Condition States her main focus is her Lan Shoulder pain (L stiffer than R). In last 2 months started to wake her up during the night (can sleep 5 hrs with rub cream). Had good mobility until April (went to [place] in March). She reports decreased shoulder ROM because difficulty putting on /off Tshirt and tucking shirt in the back into pants. Less bothersome, but present is pain across the Iliac crests with tightness and pain at IT Bands and quads. Sometimes sciatic pain down both legs. Neck is not bother her today. Prior Treatments and Tests X-rays (02/18/23): L shoulder - mod OA, Neck - DDD throughout spine with suggestion of bilateral foraminal stenosis at C4-5 through C6-7 levels. Lumbar Spine - DDD throughout spine, 8 mm anterolisthesis of L4 on L5. Future Testing and Treatments Planned Dr. Martinez appt 07/22/23 for GI dysfunction. Treatment Goals Patient/Caregiver Goals Pt goal:1) Sleep 4-5 hrs at night before getting up to use BR, and return to sleep for another couple of hours. 2) Improve ROM to take off T- Shirt blouse from an overhead or partial overhead postion and put in hair clips without noticing the shoulders discomfot and be able to lift L arm to put on deodorant with ease. Pt goals for LB/LE's: to address/create after shoulder rehab. Prior Functional Status Baseline Function- Other 5 hrs of sleep a night Current Functional Impairments (Reported) Functional Limitations- Other Interrupted sleeping every 2-3 hrs. Sleeps for a total of 7 hrs if able to sit up in a recliner to reduce shoulder pain, then can fall back asleep or sleeps in the recliner chair, nightly. Personal Factors Other Personal Factors That May Effect Chronic pain, Arthritis, Therapy/Recovery Diabetes type II. PT-OP-C Subjective Start: 07/02/23 16:35 Freq: Status: Active Protocol: Document 09/03/23 13:06 SP (Rec: 09/03/23 13:51 SP [id number]) OP-PT Subjective Patient Comments Patient Comments Pt arrives with , wants us to know how to help provide manual at home carryover if needed. PT-OP-H Neuro Start: 07/02/23 16:35 Freq: Status: Active Protocol: Document 07/19/23 11:23 LRN (Rec: 07/19/23 17:28 LRN [id number]) Sensation Evaluation Comments Summary Comments Gross sensation in UE's assessed and found to be WNL. PT-OP-J Posture/Palpation/Skin Start: 07/02/23 16:35 Freq: Status: Active Protocol: Document 07/19/23 11:23 LRN (Rec: 07/19/23 17:28 LRN [id number]) Posture Evaluation Position Standing Head/C-Spine Posture Forward Head T-Spine Posture Increased Kyphosis L-Spine Posture Increased Lordosis Shoulder Posture (L) Rounded,(R) Rounded,(L) Forward,(R) Forward,(L) Elevated Scapula Posture (L) Elevated Pelvis Posture (R) PSIS Posterior Comments Posture Comments C-Curve of lower thoracic & lumbar spine with apex on the left. Iliac Crest height is level. Palpation Assessment Location Hips Palpation Location Bilateral Greater Trochanters & IT Bands Palpation Findings Tenderness Low Back Palpation Location PSIS's, QL at Iliac Crest, Lateral Sacral borders Palpation Findings Soft Tissue Tightness, Tenderness Thoracic region Palpation Location Upper T/S paraspinals & chest at lower sternum Palpation Findings Soft Tissue Tightness, Tenderness Neck Palpation Location L>R UT, L Paraspinals Palpation Findings Soft Tissue Tightness, Tenderness Shoulders Palpation Location Around shoulder joints Palpation Findings Tenderness PT-OP-K Range of Motion Start: 07/02/23 16:35 Freq: Status: Active Protocol: Document 07/19/23 11:23 LRN (Rec: 07/19/23 17:28 LRN [id number]) Cervical Spine Range of Motion Cervical Spine Active Degrees Testing Position Sitting Flexion 38 Extension 42 Rotation Left 49 Rotation Right 47 Lateral Flexion Left 19 Lateral Flexion Right 25 ROM Limitations Pain Shoulder Goniometric Range of Motion Shoulder Right Active Testing Position Sitting Flexion 132 Abduction 110 External Rotation at 0 degrees Abduction 45 Internal Rotation Behind Back (text) Middle of buttock Comments Reaching behind head: Back of head Left Active Shoulder ROM WFL No Testing Position Sitting Flexion 110 Abduction 63 External Rotation at 0 degrees Abduction 35 Internal Rotation Behind Back (text) Lateral hip Comments Reaching behind head: Top of head. Hip Goniometric Range of Motion Hip Right Passive Hip ROM WFL No Testing Position Supine Internal Rotation 30 External Rotation 55 Comments PROM Limited by pain. Left Passive Hip ROM WFL No Testing Position Supine Internal Rotation 10 External Rotation 50 Comments PROM Limited by pain. PT-OP-L Special Tests Start: 07/02/23 16:35 Freq: Status: Active Protocol: Document 07/22/23 14:17 LRN (Rec: 07/22/23 16:19 LRN [id number]) Special Tests Cervical Spine Special Tests Upper Limb Tension Test Test Results + bilaterally with R worse than L. Comments RUE very limited in mobility, LUE mostly limited with radial nerve glide. PT-OP-M Strength Start: 07/02/23 16:35 Freq: Status: Active Protocol: Document 07/19/23 11:23 LRN (Rec: 07/19/23 17:28 LRN [id number]) Cervical Spine Strength Cervical Spine Manual Muscle Testing Testing Position Sitting Flexion (C1-2) 5 Normal Extension 5 Normal Rotation Left 5 Normal Rotation Right 5 Normal Lateral Flexion Left (C3) 5 Normal Lateral Flexion Right (C3) 5 Normal Shoulder Strength Shoulder Manual Muscle Testing Right Flexion 4 Good Abduction (C5) 3 Fair External Rotation 4+ Good+ Internal Rotation 4+ Good+ Comments All motions tested created shoulder pain. Left Flexion 5 Normal Abduction (C5) 3 Fair External Rotation 4+ Good+ Internal Rotation 5 Normal Comments All motions tested created shoulder pain. PT-OP-Q Treatments Start: 07/02/23 16:35 Freq: Status: Active Protocol: Document 09/03/23 13:06 SP (Rec: 09/03/23 13:51 SP [id number]) Therapeutic Exercises Supine Exercises HADD<> HABD Supine Exercise Name DC easy Scapular retraction Supine Exercise Name DC easy Active shoulder ER Supine Exercise Name DC easy Sidelying Exercises shld ER Sidelying Exercise Name added to HEP Side right Resistance AROM>1# DB Equipment Used towel roll under arm Reps/Minutes x10 Comments cued slow painfree ROM. ABD Sidelying Exercise Name added to HEP Side right Resistance AROM>1# DB Reps/Minutes 10 Comments cued slow painfree ROM. open book Sidelying Exercise Name Open Book- HEP reviewed Side right Resistance AROM> 1# DB Reps/Minutes 10x Comments cued slow painfree ROM, improved L post manual Standing Exercises wall walk/door way stretch Standing Exercise Name added FF Side bilateral Reps/Minutes 3 reps, 3 breath hold shoulder adduction Standing Exercise Name HEP reviewed- discussed keep doing HEP Side bilateral Resistance OTB Equipment Used anchored over door Reps/Minutes x12 Comments cued painfree range, slow controlled shoulder extension Standing Exercise Name HEP reviewed- discussed keep doing HEP Side bilateral Resistance OTB Equipment Used anchored waist height Reps/Minutes x10 Comments cued range tolerant, limit scapular snap feeling (is not painful/just aware codman pendulum Standing Exercise Name seated- CW/CCW Side bilateral Resistance wt shift stand RUE PROM), PROM use opp UE (seated) Reps/Minutes 2 min Comments good response - will do this position home Manual Therapy Treatment Soft Tissue Mobilization shld STMs Body Location B: distal lat, deltoid, tricep , teres Mobilization Type Strumming,Sustained Pressure, Other Intensity/Depth Moderate Body Position Hooklying Comments improved ROM w/ manual STMs and MWM AAROM ROM FF, HABD<> HADD Joint Mobilizations L Scapulothoracic Direction retraction/depression, UR, DR with FF Comments with manual STMs improved ROM with HABD/ADD/ FF / PT-OP-T Assessment and Plan Start: 07/02/23 16:35 Freq: Status: Active Protocol: Document 09/03/23 13:06 SP (Rec: 09/03/23 13:51 SP [id number]) Physical Therapy Assessment Goals Five Impairment LE (Greater trochanter, hamstring, quad, knee) pain Group Home Goal (LTG) Address & create LE pain goals after therapy focusing on shoulder rehab. LTG Duration 10/17/23 (12 weeks) Three Impairment Decreased bilateral shoulder mobility Short Term Goal (STG) Improve ROM to put in hair clips without noticing shoulder discomfort. 08/20/23: progressing: pt demonstrates a ble to reach over head to opposite LUE not and reach up in to cupboard with less pain. 08/27/23: notes tightness but not as much pain after manual, HEP review. Discussed continue home. STG Duration 08/18/23 (4 weeks) 08/27/23 Group Home Goal (LTG) Improve ROM to remove T-Shirt blouse with an overhead or partially overhead motion. LTG Duration 09/17/23 (7 weeks) One Impairment Pt lacks appropriate shoulder/ thoracic spine HEP. Short Term Goal (STG) Pt will be able to put on underarm deodorant with ease. STG Duration 09/17/23 (7 weeks) Paper Baler Goal (LTG) Pt will be independent in a self care HEP of shoulder/ thoracic/back/hip/knee ROM and strengthening ex's. 07/22/23: Shldr HEP: Codman's, AROM: ER, Flex, protraction; Resisted lan scapular stab: Shdr Ext & ADD. 08/06/23: HEP: Shoulder AROM : supine windshield wipe & flex; sup & standing scap pinches. LTG Duration 10/17/23 (12 weeks) progressed 08/06/23 Four Impairment LB pain Impairment Thigh pain 5-6/10 with occasional 8-9 shooting pain. LEFS is 44 with one question unanswered (40-59% impaired with score 32-47) Group Home Goal (LTG) Address & create LB pain goals after therapy focusing on shoulder rehab. LTG Duration 10/17/23 (12 weeks) Two Impairment Decreased shoulder stability and strength limiting function Impairment Pt limited in ability to lift L arm to put on underarm deodorant with ease. Pt limited in ability to sleep at night. Pt wakes after 2-3 hours of sleep and usually gets up to lay on recliner chair for another couple of hours of sleep. Short Term Goal (STG) Pt will be educated in best nighttime sleeping positions. 07/22/23: Pt educated in best nighttime sleep positions in sidelie & supine, using pillows to support her UE's and back. 08/02/23: time spent use pillow / towel support for side sleeping, see self care details. 07/30/23: last 2 nights slept 4 hrs and no meds assist. STG Duration 08/02/23 (2 weeks) (07/22/23: MET GOAL) Paper Baler Goal (LTG) Pt will be able to sleep 4-5 hrs at night before getting up to use BR, and return to sleep without having to sleep in recliner chair. 08/02/23: time spent use pillow / towel support for side sleeping, see self care details. 08/27/23: progressing able to sleep for 4 hrs on air mattress before wakes up, did go to reclined remaining 2 hrs sleep, no meds assist for pain needed. LTG Duration 09/17/23 (7 weeks) updated: 08/27/23 Assessment Summary Assessment Tx focused on manual with education of anatomy, GH and scapulothoracic fire hydrant mechanic AROM withpt and . good understanding manual support at home vs pt use ball on wall STMs as needed. Started to condense HEP, discontinued supine HEP to easy. Pt tolerated increase resistance to sidelying open book, ABD and ER with cues for scap stabilization and mobility. Physical Therapy Plan Frequency and Duration Frequency of Treatment 2x/Week Duration of treatment (weeks) 12 Plan of Care Start Date 07/19/23 Plan of Care End Date 10/17/23 Therapeutic Interventions Therapeutic Interventions Home Exercise Program,Joint Mobilizations,Manual Therapy, Neuromuscular Re-education, Patient/Caregiver Education, Self-Care/Home Management,Soft Tissue Mobilization, Therapeutic Activities, Therapeutic Exercises Modalities Cold Pack/Ice Massage,Hot Packs,Iontophoresis,Ultrasound Other Therapeutic Interventions 4 mg/mL Dexamethasone with Sodium Phosphate. Next Visit Focus/Plan Next Note Type Treatment Note Next Visit Plan Redo supine HABD<>HADD AROM if ok then add to HEP. Ask how felt after last tx.Review HEP issued: Total Posture Improvement Ex, seated pendulums, & theraband ex. (Note: Minimize ex's for home due to pt's difficulty in doing home ex's). Next: Encourage pt to be consistent with HEP. Assess STG 1, LTG 2, & goal #3. Progress shoulder PROM/AROM as tolerated. Add Gentle neural glides. Initiate postural ex's and RC strengthening. Educate pt in proper posturing and body mechanics for ADLS w /RC protection in mind, and self care pain mgmt techniques . Assess LB/hips - ROM, strength & special test for neuro involvement. After shoulder rehab reassess for new POC. POC: L shoulder RC rehab, R shoulder arthritis pain rehab; LB/Hip therapy POC when shoulder rehab has been addressed.
--- NOTE | 2023-09-06 15:01 | PT.OTN ---
Current Diagnoses Pain in right shoulder (09/06/23) Pain in left shoulder (09/06/23) Other kyphosis, thoracic region (09/06/23) Postural lordosis, thoracolumbar region (09/06/23) Postural lordosis, lumbosacral region (09/06/23) Cervicalgia (09/06/23) Muscle weakness (generalized) (09/06/23) Pain in right arm (09/06/23) Pain in left arm (09/06/23) Pain in right leg (09/06/23) Pain in left leg (09/06/23) Physical Therapy Treatment Note PT-OP-A Visit Information Start: 07/02/23 16:35 Freq: Status: Active Protocol: Document 09/06/23 14:04 LRN (Rec: 09/06/23 15:00 LRN [id number]) Out-Patient Physical Therapy Visit Information Visit Information Visit Type Treatment Note Visit Start Time 14:04 Visit Stop Time 14:45 Total Visit Minutes 43 Visit Number 9 Evaluation Information Evaluation Date 07/19/23 Precautions Precautions Arthritis, back pain Diabete's type II, Hypothyroidism, L broken ankle and tibia 2003. PT-OP-B Current Condition Start: 07/02/23 16:35 Freq: Status: Active Protocol: Document 07/19/23 11:23 LRN (Rec: 07/19/23 17:28 LRN [id number]) Current Condition History of Current Condition Onset Date ~05/03/23 Current Complaints Lan shoulder pain is interrupting sleep. Pain across LB, hip, thighs. History of Current Condition States her main focus is her Lan Shoulder pain (L stiffer than R). In last 2 months started to wake her up during the night (can sleep 5 hrs with rub cream). Had good mobility until April (went to [place] in March). She reports decreased shoulder ROM because difficulty putting on /off Tshirt and tucking shirt in the back into pants. Less bothersome, but present is pain across the Iliac crests with tightness and pain at IT Bands and quads. Sometimes sciatic pain down both legs. Neck is not bother her today. Prior Treatments and Tests X-rays (02/18/23): L shoulder - mod OA, Neck - DDD throughout spine with suggestion of bilateral foraminal stenosis at C4-5 through C6-7 levels. Lumbar Spine - DDD throughout spine, 8 mm anterolisthesis of L4 on L5. Future Testing and Treatments Planned Dr. Martinez appt 07/22/23 for GI dysfunction. Treatment Goals Patient/Caregiver Goals Pt goal:1) Sleep 4-5 hrs at night before getting up to use BR, and return to sleep for another couple of hours. 2) Improve ROM to take off T- Shirt blouse from an overhead or partial overhead postion and put in hair clips without noticing the shoulders discomfot and be able to lift L arm to put on deodorant with ease. Pt goals for LB/LE's: to address/create after shoulder rehab. Prior Functional Status Baseline Function- Other 5 hrs of sleep a night Current Functional Impairments (Reported) Functional Limitations- Other Interrupted sleeping every 2-3 hrs. Sleeps for a total of 7 hrs if able to sit up in a recliner to reduce shoulder pain, then can fall back asleep or sleeps in the recliner chair, nightly. Personal Factors Other Personal Factors That May Effect Chronic pain, Arthritis, Therapy/Recovery Diabetes type II. PT-OP-C Subjective Start: 07/02/23 16:35 Freq: Status: Active Protocol: Document 09/06/23 14:04 LRN (Rec: 09/06/23 15:00 LRN [id number]) OP-PT Subjective Patient Comments Patient Comments Day after therapy her shoulder felt well. States overall she has better ROM and can put her hands on her head and can reach behind back farther, can put dishes up on high shelf and not feel as restricted, and instead of waking up every 2 hrs she now can sleep up to 3 hrs and last night almost slept 4 hrs. Having massage therapy in 3 days PT-OP-H Neuro Start: 07/02/23 16:35 Freq: Status: Active Protocol: Document 07/19/23 11:23 LRN (Rec: 07/19/23 17:28 LRN [id number]) Sensation Evaluation Comments Summary Comments Gross sensation in UE's assessed and found to be WNL. PT-OP-J Posture/Palpation/Skin Start: 07/02/23 16:35 Freq: Status: Active Protocol: Document 07/19/23 11:23 LRN (Rec: 07/19/23 17:28 LRN [id number]) Posture Evaluation Position Standing Head/C-Spine Posture Forward Head T-Spine Posture Increased Kyphosis L-Spine Posture Increased Lordosis Shoulder Posture (L) Rounded,(R) Rounded,(L) Forward,(R) Forward,(L) Elevated Scapula Posture (L) Elevated Pelvis Posture (R) PSIS Posterior Comments Posture Comments C-Curve of lower thoracic & lumbar spine with apex on the left. Iliac Crest height is level. Palpation Assessment Location Hips Palpation Location Bilateral Greater Trochanters & IT Bands Palpation Findings Tenderness Low Back Palpation Location PSIS's, QL at Iliac Crest, Lateral Sacral borders Palpation Findings Soft Tissue Tightness, Tenderness Thoracic region Palpation Location Upper T/S paraspinals & chest at lower sternum Palpation Findings Soft Tissue Tightness, Tenderness Neck Palpation Location L>R UT, L Paraspinals Palpation Findings Soft Tissue Tightness, Tenderness Shoulders Palpation Location Around shoulder joints Palpation Findings Tenderness PT-OP-K Range of Motion Start: 07/02/23 16:35 Freq: Status: Active Protocol: Document 07/19/23 11:23 LRN (Rec: 07/19/23 17:28 LRN [id number]) Cervical Spine Range of Motion Cervical Spine Active Degrees Testing Position Sitting Flexion 38 Extension 42 Rotation Left 49 Rotation Right 47 Lateral Flexion Left 19 Lateral Flexion Right 25 ROM Limitations Pain Shoulder Goniometric Range of Motion Shoulder Right Active Testing Position Sitting Flexion 132 Abduction 110 External Rotation at 0 degrees Abduction 45 Internal Rotation Behind Back (text) Middle of buttock Comments Reaching behind head: Back of head Left Active Shoulder ROM WFL No Testing Position Sitting Flexion 110 Abduction 63 External Rotation at 0 degrees Abduction 35 Internal Rotation Behind Back (text) Lateral hip Comments Reaching behind head: Top of head. Hip Goniometric Range of Motion Hip Right Passive Hip ROM WFL No Testing Position Supine Internal Rotation 30 External Rotation 55 Comments PROM Limited by pain. Left Passive Hip ROM WFL No Testing Position Supine Internal Rotation 10 External Rotation 50 Comments PROM Limited by pain. PT-OP-L Special Tests Start: 07/02/23 16:35 Freq: Status: Active Protocol: Document 07/22/23 14:17 LRN (Rec: 07/22/23 16:19 LRN [id number]) Special Tests Cervical Spine Special Tests Upper Limb Tension Test Test Results + bilaterally with R worse than L. Comments RUE very limited in mobility, LUE mostly limited with radial nerve glide. PT-OP-M Strength Start: 07/02/23 16:35 Freq: Status: Active Protocol: Document 07/19/23 11:23 LRN (Rec: 07/19/23 17:28 LRN [id number]) Cervical Spine Strength Cervical Spine Manual Muscle Testing Testing Position Sitting Flexion (C1-2) 5 Normal Extension 5 Normal Rotation Left 5 Normal Rotation Right 5 Normal Lateral Flexion Left (C3) 5 Normal Lateral Flexion Right (C3) 5 Normal Shoulder Strength Shoulder Manual Muscle Testing Right Flexion 4 Good Abduction (C5) 3 Fair External Rotation 4+ Good+ Internal Rotation 4+ Good+ Comments All motions tested created shoulder pain. Left Flexion 5 Normal Abduction (C5) 3 Fair External Rotation 4+ Good+ Internal Rotation 5 Normal Comments All motions tested created shoulder pain. PT-OP-Q Treatments Start: 07/02/23 16:35 Freq: Status: Active Protocol: Document 09/06/23 14:04 LRN (Rec: 09/06/23 15:00 LRN [id number]) Therapeutic Exercises Supine Exercises Posture press Supine Exercise Name [place], arms ER'd @ 45 deg's AB, press back against plinth- hold 3 breaths Reps/Minutes 15' Comments Much cuing to position, coordinate breath, and for pushing spine into plint HADD<> HABD Supine Exercise Name Shoulder H ADD<>HABD Side bilateral Equipment Used Bolster under knees Reps/Minutes 10' Comments L arm more restricted w/ mobility. Shoulder Flex Supine Exercise Name Active Shoulder flex stretch hold Side bilateral Resistance AROM alternating Reps/Minutes 10 rep x3 SH Comments Pt moving appropriately slow. Self-Care/Home Management Treatment Education Patient Education Home Exercise Program Activities Self-Care/Home Management Activities Issued & reviewed HEP: HABD<> HADD exercise. Extra time was needed to find appropriate exercise and for issuance of ex. PT-OP-T Assessment and Plan Start: 07/02/23 16:35 Freq: Status: Active Protocol: Document 09/06/23 14:04 LRN (Rec: 09/06/23 15:00 LRN [id number]) Physical Therapy Assessment Goals Five Impairment LE (Greater trochanter, hamstring, quad, knee) pain Community Resource Consultant Goal (LTG) Address & create LE pain goals after therapy focusing on shoulder rehab. LTG Duration 10/17/23 (12 weeks) Three Impairment Decreased bilateral shoulder mobility Short Term Goal (STG) Improve ROM to put in hair clips without noticing shoulder discomfort. 08/20/23: progressing: pt demonstrates a ble to reach over head to opposite LUE not and reach up in to cupboard with less pain. 08/27/23: notes tightness but not as much pain after manual, HEP review. Discussed continue home. 09/03/23: GOAL MET: able to put in hair clips self. 09/06/23: Stretch felt posteroinferior to brachium putting clip in hair. STG Duration 08/18/23 (GOAL MET 09/03/23 ) Community Resource Consultant Goal (LTG) Improve ROM to remove T-Shirt blouse with an overhead or partially overhead motion. 09/03/23: pt is able to reachover top of her head to touch opposite side now. 09/06/23: Pt feels she is 30% better. LTG Duration 09/17/23 (7 weeks) progressing 09/03/23 One Impairment Pt lacks appropriate shoulder/ thoracic spine HEP. Short Term Goal (STG) Pt will be able to put on underarm deodorant with ease. 09/05/23: Can now hold arms overhead to put underarm deodorant. STG Duration 09/17/23 (7 weeks) (: MET GOAL) Community Resource Consultant Goal (LTG) Pt will be independent in a self care HEP of shoulder/ thoracic/back/hip/knee ROM and strengthening ex's. 07/22/23: Shldr HEP: Codman's, AROM: ER, Flex, protraction; Resisted lan scapular stab: Shdr Ext & ADD. 08/06/23: HEP: Shoulder AROM : supine windshield wipe & flex; sup & standing scap pinches. 09/03/23: added side abd, open book, ER 1# DB. LTG Duration 10/17/23 (12 weeks) progressed 09/03/23 Four Impairment LB pain Impairment Thigh pain 5-6/10 with occasional 8-9 shooting pain. LEFS is 44 with one question unanswered (40-59% impaired with score 32-47) Jail Goal (LTG) Address & create LB pain goals after therapy focusing on shoulder rehab. LTG Duration 10/17/23 (12 weeks) Two Impairment Decreased shoulder stability and strength limiting function Impairment Pt limited in ability to lift L arm to put on underarm deodorant with ease. Pt limited in ability to sleep at night. Pt wakes after 2-3 hours of sleep and usually gets up to lay on recliner chair for another couple of hours of sleep. Short Term Goal (STG) Pt will be educated in best nighttime sleeping positions. 07/22/23: Pt educated in best nighttime sleep positions in sidelie & supine, using pillows to support her UE's and back. 08/02/23: time spent use pillow / towel support for side sleeping, see self care details. 07/30/23: last 2 nights slept 4 hrs and no meds assist. STG Duration 08/02/23 (2 weeks) (07/22/23: MET GOAL) Jail Goal (LTG) Pt will be able to sleep 4-5 hrs at night before getting up to use BR, and return to sleep without having to sleep in recliner chair. 08/02/23: time spent use pillow / towel support for side sleeping, see self care details. 08/27/23: progressing able to sleep for 4 hrs on air mattress before wakes up, did go to reclined remaining 2 hrs sleep, no meds assist for pain needed. 09/06/23: Sleeping up to 3 hrs and once almost 4 hrs. LTG Duration 09/17/23 (7 weeks) progressing 09/06/23 Assessment Summary Assessment Pt had + response after last session wasn't aware of waking in the night due to pain and didn't have twinges of pain during the day and didn't notice her pain until a day later (had her R arm worked on ). Physical Therapy Plan Frequency and Duration Frequency of Treatment 2x/Week Duration of treatment (weeks) 12 Plan of Care Start Date 07/19/23 Plan of Care End Date 10/17/23 Next Visit Focus/Plan Next Note Type Progress Note Next Visit Plan (Note: Minimize ex's for home due to pt's difficulty in doing home ex's). Next: PN, pt to bring in questionnaires. Review previously isued HEP: seated pendulums, & theraband ex. Encourage pt to be consistent with HEP. Monitor progress towards LTG #2, & goal #3. Progress shoulder PROM/AROM as tolerated. Add Gentle neural glides. Progress postural ex's and RC strengthening. Educate pt in proper posturing and body mechanics for ADLS w /RC protection in mind, and self care pain mgmt techniques . Assess LB/hips - ROM, strength & special test for neuro involvement. After shoulder rehab reassess for new POC. POC: L shoulder RC rehab, R shoulder arthritis pain rehab; LB/Hip therapy POC when shoulder rehab has been addressed.
--- NOTE | 2023-10-01 15:57 | PT.OTN ---
Current Diagnoses Pain in right shoulder (10/01/23) Pain in left shoulder (10/01/23) Other kyphosis, thoracic region (10/01/23) Postural lordosis, thoracolumbar region (10/01/23) Postural lordosis, lumbosacral region (10/01/23) Cervicalgia (10/01/23) Muscle weakness (generalized) (10/01/23) Pain in right arm (10/01/23) Pain in left arm (10/01/23) Pain in right leg (10/01/23) Pain in left leg (10/01/23) Physical Therapy Treatment Note PT-OP-A Visit Information Start: 07/02/23 16:35 Freq: Status: Active Protocol: Document 10/01/23 14:32 LRN (Rec: 10/01/23 15:56 LRN [id number]) Out-Patient Physical Therapy Visit Information Visit Information Visit Type Progress Note Visit Start Time 14:32 Visit Stop Time 15:21 Total Visit Minutes 49 Visit Number 10 Evaluation Information Evaluation Date 07/19/23 Precautions Precautions Arthritis, back pain Diabete's type II, Hypothyroidism, L broken ankle and tibia 2003. PT-OP-B Current Condition Start: 07/02/23 16:35 Freq: Status: Active Protocol: Document 07/19/23 11:23 LRN (Rec: 07/19/23 17:28 LRN [id number]) Current Condition History of Current Condition Onset Date ~05/03/23 Current Complaints Lan shoulder pain is interrupting sleep. Pain across LB, hip, thighs. History of Current Condition States her main focus is her Lan Shoulder pain (L stiffer than R). In last 2 months started to wake her up during the night (can sleep 5 hrs with rub cream). Had good mobility until April (went to [place] in March). She reports decreased shoulder ROM because difficulty putting on /off Tshirt and tucking shirt in the back into pants. Less bothersome, but present is pain across the Iliac crests with tightness and pain at IT Bands and quads. Sometimes sciatic pain down both legs. Neck is not bother her today. Prior Treatments and Tests X-rays (02/18/23): L shoulder - mod OA, Neck - DDD throughout spine with suggestion of bilateral foraminal stenosis at C4-5 through C6-7 levels. Lumbar Spine - DDD throughout spine, 8 mm anterolisthesis of L4 on L5. Future Testing and Treatments Planned Dr. Martinez appt 07/22/23 for GI dysfunction. Treatment Goals Patient/Caregiver Goals Pt goal:1) Sleep 4-5 hrs at night before getting up to use BR, and return to sleep for another couple of hours. 2) Improve ROM to take off T- Shirt blouse from an overhead or partial overhead postion and put in hair clips without noticing the shoulders discomfot and be able to lift L arm to put on deodorant with ease. Pt goals for LB/LE's: to address/create after shoulder rehab. Prior Functional Status Baseline Function- Other 5 hrs of sleep a night Current Functional Impairments (Reported) Functional Limitations- Other Interrupted sleeping every 2-3 hrs. Sleeps for a total of 7 hrs if able to sit up in a recliner to reduce shoulder pain, then can fall back asleep or sleeps in the recliner chair, nightly. Personal Factors Other Personal Factors That May Effect Chronic pain, Arthritis, Therapy/Recovery Diabetes type II. PT-OP-C Subjective Start: 07/02/23 16:35 Freq: Status: Active Protocol: Document 10/01/23 14:32 LRN (Rec: 10/01/23 15:56 LRN [id number]) OP-PT Subjective Patient Comments Patient Comments States she has been exercising at [facility], but her L shoulder is still causing problems although she is better with improved ROM. Still having trouble putting her jacket on. States her shoulders (L>R) bothers her more than her LE's. Patient Questionnaires Lower Extremity Functional Scale LEFS Score 49 LEFS Impairment 20 to 39% Impaired (Score 48- 62) Neck Disability Index NDI Score 6 Neck Disability Index Impairment 1 to 19% Impaired (Score 1-9) Oswestry Low Back Index Oswestry Score 32 Oswestry Impairment 20 to 39% Impaired (Score 20- 39) Quick Dash- Upper Extremity Quick Dash UE Score 50 Quick Dash UE Impairment 40 to 59% Impaired (Score 40- 59) PT-OP-H Neuro Start: 07/02/23 16:35 Freq: Status: Active Protocol: Document 07/19/23 11:23 LRN (Rec: 07/19/23 17:28 LRN [id number]) Sensation Evaluation Comments Summary Comments Gross sensation in UE's assessed and found to be WNL. PT-OP-J Posture/Palpation/Skin Start: 07/02/23 16:35 Freq: Status: Active Protocol: Document 07/19/23 11:23 LRN (Rec: 07/19/23 17:28 LRN [id number]) Posture Evaluation Position Standing Head/C-Spine Posture Forward Head T-Spine Posture Increased Kyphosis L-Spine Posture Increased Lordosis Shoulder Posture (L) Rounded,(R) Rounded,(L) Forward,(R) Forward,(L) Elevated Scapula Posture (L) Elevated Pelvis Posture (R) PSIS Posterior Comments Posture Comments C-Curve of lower thoracic & lumbar spine with apex on the left. Iliac Crest height is level. Palpation Assessment Location Hips Palpation Location Bilateral Greater Trochanters & IT Bands Palpation Findings Tenderness Low Back Palpation Location PSIS's, QL at Iliac Crest, Lateral Sacral borders Palpation Findings Soft Tissue Tightness, Tenderness Thoracic region Palpation Location Upper T/S paraspinals & chest at lower sternum Palpation Findings Soft Tissue Tightness, Tenderness Neck Palpation Location L>R UT, L Paraspinals Palpation Findings Soft Tissue Tightness, Tenderness Shoulders Palpation Location Around shoulder joints Palpation Findings Tenderness PT-OP-K Range of Motion Start: 07/02/23 16:35 Freq: Status: Active Protocol: Document 07/19/23 11:23 LRN (Rec: 07/19/23 17:28 LRN [id number]) Cervical Spine Range of Motion Cervical Spine Active Degrees Testing Position Sitting Flexion 38 Extension 42 Rotation Left 49 Rotation Right 47 Lateral Flexion Left 19 Lateral Flexion Right 25 ROM Limitations Pain Shoulder Goniometric Range of Motion Shoulder Right Active Testing Position Sitting Flexion 132 Abduction 110 External Rotation at 0 degrees Abduction 45 Internal Rotation Behind Back (text) Middle of buttock Comments Reaching behind head: Back of head Left Active Shoulder ROM WFL No Testing Position Sitting Flexion 110 Abduction 63 External Rotation at 0 degrees Abduction 35 Internal Rotation Behind Back (text) Lateral hip Comments Reaching behind head: Top of head. Hip Goniometric Range of Motion Hip Right Passive Hip ROM WFL No Testing Position Supine Internal Rotation 30 External Rotation 55 Comments PROM Limited by pain. Left Passive Hip ROM WFL No Testing Position Supine Internal Rotation 10 External Rotation 50 Comments PROM Limited by pain. PT-OP-L Special Tests Start: 07/02/23 16:35 Freq: Status: Active Protocol: Document 07/22/23 14:17 LRN (Rec: 07/22/23 16:19 LRN [id number]) Special Tests Cervical Spine Special Tests Upper Limb Tension Test Test Results + bilaterally with R worse than L. Comments RUE very limited in mobility, LUE mostly limited with radial nerve glide. PT-OP-M Strength Start: 07/02/23 16:35 Freq: Status: Active Protocol: Document 07/19/23 11:23 LRN (Rec: 07/19/23 17:28 LRN [id number]) Cervical Spine Strength Cervical Spine Manual Muscle Testing Testing Position Sitting Flexion (C1-2) 5 Normal Extension 5 Normal Rotation Left 5 Normal Rotation Right 5 Normal Lateral Flexion Left (C3) 5 Normal Lateral Flexion Right (C3) 5 Normal Shoulder Strength Shoulder Manual Muscle Testing Right Flexion 4 Good Abduction (C5) 3 Fair External Rotation 4+ Good+ Internal Rotation 4+ Good+ Comments All motions tested created shoulder pain. Left Flexion 5 Normal Abduction (C5) 3 Fair External Rotation 4+ Good+ Internal Rotation 5 Normal Comments All motions tested created shoulder pain. PT-OP-Q Treatments Start: 07/02/23 16:35 Freq: Status: Active Protocol: Document 10/01/23 14:32 LRN (Rec: 10/01/23 15:56 LRN [id number]) Self-Care/Home Management Treatment Education Other Education Discussed pt's ex workout at [facility] and determined some ex's can be substituted for her HEP. Discussed use of hydraulic ex for resistance strengthening. Discussed diet as related to pain with inflammation. Discussed results of recheck, goals, and plan of care (POC). Pt agreeable to new goals and POC with request for continued focus on L shoulder to improve function and decreased pain. Activities Self-Care/Home Management Activities Reviewed HEP and updated ex's to include ex that she can do at [facility] gym and removed repetitive ex's. Reviewed previously issued ex's for her LB/LE's. PT-OP-T Assessment and Plan Start: 07/02/23 16:35 Freq: Status: Active Protocol: Document 10/01/23 14:32 LRN (Rec: 10/01/23 15:56 LRN [id number]) Physical Therapy Assessment Rehab Potential Rehabilitation Potential Excellent Evaluation Complexity Number of Personal Factors/Comorbidities 3 or More Number of Body Systems Impaired 4 or More Clinical Presentation at Evaluation Evolving Impairments Impairments Activity Tolerance,Functional Activities,Pain,Posture,ROM, Soft Tissue Mobility,Strength Goals Five Impairment LE (Greater trochanter, hamstring, quad, knee) pain Impairment Thigh pain 4-5/10 with occasional 8-9 shooting pain. LEFS is 44 with one question unanswered (40-59% impaired with score 32-47). 10/01/23: LBP rated 4/10, sometimes pain down leg; Thigh pain rated 2-3/10 with no shooting pain. LEFS score 49 (20-39% impaired, score 48-62 ). Short Term Goal (STG) Pt consistent with HEP & Ex workout of LE ex's total of 2- 3x/week and UE ex's 2-3x/wk to reduce LBP or thigh pain STG Duration 8 weeks (11/29/23) Air Brake Tester Goal (LTG) Improve function per LEFS score of 59 or greater. LTG Duration 12 weeks (12/24/23) Three Impairment Decreased bilateral shoulder mobility Short Term Goal (STG) Improve ROM to put in hair clips without noticing shoulder discomfort. 08/20/23: progressing: pt demonstrates a ble to reach over head to opposite LUE not and reach up in to cupboard with less pain. 08/27/23: notes tightness but not as much pain after manual, HEP review. Discussed continue home. 09/03/23: GOAL MET: able to put in hair clips self. 09/06/23: Stretch felt posteroinferior to brachium putting clip in hair. 10/01/23: Can put hair clips but feels strain in underside of L arm. STG Duration 08/18/23 (GOAL MET, but pt can feel discomfort 10/01/23) Air Brake Tester Goal (LTG) Improve ROM to remove T-Shirt blouse with an overhead or partially overhead motion. 09/03/23: pt is able to reachover top of her head to touch opposite side now. 09/06/23: Pt feels she is 30% better. 10/01/23: Pt feels she may be up to 40% better. LTG Duration 8 wks (11/29/23) progressing 10/01/23 One Impairment Pt lacks appropriate shoulder/ thoracic spine HEP. Short Term Goal (STG) Pt will be able to put on underarm deodorant with ease. 09/05/23: Can now hold arms overhead to put underarm deodorant. STG Duration 09/17/23 (7 weeks) (: MET GOAL) Air Brake Tester Goal (LTG) Pt will be independent in a self care HEP of shoulder/ thoracic/back/hip/knee ROM and strengthening ex's. 07/22/23: Shldr HEP: Codman's, AROM: ER, Flex, protraction; Resisted lan scapular stab: Shdr Ext & ADD. 08/06/23: HEP: Shoulder AROM : supine windshield wipe & flex; sup & standing scap pinches. 09/03/23: added side abd, open book, ER 1# DB. LTG Duration 12 weeks (12/24/23) progressed 09/03/23 Four Impairment LB pain rated 10 Impairment Walks 15' before LB starts to feel uncomfortable. Air Brake Tester Goal (LTG) Pt able to do a 30' on flat trail walk before back starts to feel uncomfortable. 10/01/23: LB tightens after walking a short distance. LTG Duration 12 weeks (12/24/23) Two Impairment Decreased shoulder stability and strength limiting function Impairment Pt limited in ability to lift L arm to put on underarm deodorant with ease. Pt limited in ability to sleep at night. Pt wakes after 2-3 hours of sleep and usually gets up to lay on recliner chair for another couple of hours of sleep. Short Term Goal (STG) Pt will be educated in best nighttime sleeping positions. 07/22/23: Pt educated in best nighttime sleep positions in sidelie & supine, using pillows to support her UE's and back. 08/02/23: time spent use pillow / towel support for side sleeping, see self care details. 07/30/23: last 2 nights slept 4 hrs and no meds assist. STG Duration 08/02/23 (2 weeks) (07/22/23: MET GOAL) Longterm Goal (LTG) Pt will be able to sleep 4-5 hrs at night before getting up to use BR, and return to sleep without having to sleep in recliner chair. 08/02/23: time spent use pillow / towel support for side sleeping, see self care details. 08/27/23: progressing able to sleep for 4 hrs on air mattress before wakes up, did go to reclined remaining 2 hrs sleep, no meds assist for pain needed. 09/06/23: Sleeping up to 3 hrs and once almost 4 hrs. LTG Duration 12 weeks (12/24/23) progressing 09/06/23 Assessment Summary Assessment Pt is a 73 yo female who presented with complaints of pain in most areas of her body , but most interested decreasing shoulder pain to improve sleep. She demonstrated initially + ULNT tests with RUE worse than LUE. Today she wanted to discuss exercise programs at here and at [facility] [place], which involved several topics related to her pain (joints, muscle, neural, exercise & diet as related to pain). I was able to update her HEP with discussion of how some can be substituted with ex at her local gym. The pt is most concerned about continuing with her shoulder rehab but is agreeable to start incorporating trunk and LE ROM and strengthening, but with focus on her L shoulder to improve function and reduce pain. The pt will benefit from continued skilled physical therapy to progress her rehab to include therapy for her LB/LE radicular pain. Physical Therapy Plan Frequency and Duration Frequency of Treatment 2x/Week Duration of treatment (weeks) 12 Plan of Care Start Date 10/01/23 Plan of Care End Date 12/24/23 Therapeutic Interventions Therapeutic Interventions Home Exercise Program,Joint Mobilizations,Manual Therapy, Neuromuscular Re-education, Patient/Caregiver Education, Self-Care/Home Management,Soft Tissue Mobilization, Therapeutic Activities, Therapeutic Exercises Modalities Cold Pack/Ice Massage,Electric Stimulation,Hot Packs, Iontophoresis,Ultrasound Other Therapeutic Interventions 4 mg/mL Dexamethasone with Sodium Phosphate. Next Visit Focus/Plan Next Note Type Treatment Note Next Visit Plan (Note: Minimize ex's for home due to pt's difficulty in doing home ex's). PT Next: Assess LB/hips - ROM , strength & special test for neuro involvement. Next: Review previously issued HEP: seated pendulums, & theraband. Progress shoulder to tolerate overhead movements. Add Gentle neural glides. Progress postural ex's and RC strengthening. Educate pt in proper posturing and body mechanics for ADLS w /RC protection in mind, and self care pain mgmt techniques . POC: L shoulder RC rehab, R shoulder arthritis pain rehab; LB/Hip therapy POC: Sciatic pain rehab including ROM, core stabilization, LE strengthening,
--- NOTE | 2023-10-08 14:32 | PT.OTN ---
Current Diagnoses Pain in right shoulder (10/08/23) Pain in left shoulder (10/08/23) Other kyphosis, thoracic region (10/08/23) Postural lordosis, thoracolumbar region (10/08/23) Postural lordosis, lumbosacral region (10/08/23) Cervicalgia (10/08/23) Muscle weakness (generalized) (10/08/23) Pain in right arm (10/08/23) Pain in left arm (10/08/23) Pain in right leg (10/08/23) Pain in left leg (10/08/23) Physical Therapy Treatment Note PT-OP-A Visit Information Start: 07/02/23 16:35 Freq: Status: Active Protocol: Document 10/08/23 13:54 SP (Rec: 10/08/23 14:32 SP [id number]) Out-Patient Physical Therapy Visit Information Visit Information Visit Type Treatment Note Visit Start Time 13:54 Visit Stop Time 14:32 Total Visit Minutes 38 Visit Number 11 Number of ELECTRICAL CONTINUITY TESTER Visits 1 Evaluation Information Evaluation Date 07/19/23 Precautions Precautions Arthritis, back pain Diabete's type II, Hypothyroidism, L broken ankle and tibia 2003. PT-OP-B Current Condition Start: 07/02/23 16:35 Freq: Status: Active Protocol: Document 07/19/23 11:23 LRN (Rec: 07/19/23 17:28 LRN [id number]) Current Condition History of Current Condition Onset Date ~05/03/23 Current Complaints Abby shoulder pain is interrupting sleep. Pain across LB, hip, thighs. History of Current Condition States her main focus is her Abby Shoulder pain (L stiffer than R). In last 2 months started to wake her up during the night (can sleep 5 hrs with rub cream). Had good mobility until April (went to [facility] in March). She reports decreased shoulder ROM because difficulty putting on /off Tshirt and tucking shirt in the back into pants. Less bothersome, but present is pain across the Iliac crests with tightness and pain at IT Bands and quads. Sometimes sciatic pain down both legs. Neck is not bother her today. Prior Treatments and Tests X-rays (02/18/23): L shoulder - mod OA, Neck - DDD throughout spine with suggestion of bilateral foraminal stenosis at C4-5 through C6-7 levels. Lumbar Spine - DDD throughout spine, 8 mm anterolisthesis of L4 on L5. Future Testing and Treatments Planned Dr. Juan parmart 07/22/23 for GI dysfunction. Treatment Goals Patient/Caregiver Goals Pt goal:1) Sleep 4-5 hrs at night before getting up to use BR, and return to sleep for another couple of hours. 2) Improve ROM to take off T- Shirt blouse from an overhead or partial overhead postion and put in hair clips without noticing the shoulders discomfot and be able to lift L arm to put on deodorant with ease. Pt goals for LB/LE's: to address/create after shoulder rehab. Prior Functional Status Baseline Function- Other 5 hrs of sleep a night Current Functional Impairments (Reported) Functional Limitations- Other Interrupted sleeping every 2-3 hrs. Sleeps for a total of 7 hrs if able to sit up in a recliner to reduce shoulder pain, then can fall back asleep or sleeps in the recliner chair, nightly. Personal Factors Other Personal Factors That May Effect Chronic pain, Arthritis, Therapy/Recovery Diabetes type II. PT-OP-C Subjective Start: 07/02/23 16:35 Freq: Status: Active Protocol: Document 10/08/23 13:54 SP (Rec: 10/08/23 14:32 SP [id number]) OP-PT Subjective Patient Comments Patient Comments Pt reports taking Trasidone at night for achiness. PT-OP-H Neuro Start: 07/02/23 16:35 Freq: Status: Active Protocol: Document 07/19/23 11:23 LRN (Rec: 07/19/23 17:28 LRN [id number]) Sensation Evaluation Comments Summary Comments Gross sensation in UE's assessed and found to be WNL. PT-OP-J Posture/Palpation/Skin Start: 07/02/23 16:35 Freq: Status: Active Protocol: Document 07/19/23 11:23 LRN (Rec: 07/19/23 17:28 LRN [id number]) Posture Evaluation Position Standing Head/C-Spine Posture Forward Head T-Spine Posture Increased Kyphosis L-Spine Posture Increased Lordosis Shoulder Posture (L) Rounded,(R) Rounded,(L) Forward,(R) Forward,(L) Elevated Scapula Posture (L) Elevated Pelvis Posture (R) PSIS Posterior Comments Posture Comments C-Curve of lower thoracic & lumbar spine with apex on the left. Iliac Crest height is level. Palpation Assessment Location Hips Palpation Location Bilateral Greater Trochanters & IT Bands Palpation Findings Tenderness Low Back Palpation Location PSIS's, QL at Iliac Crest, Lateral Sacral borders Palpation Findings Soft Tissue Tightness, Tenderness Thoracic region Palpation Location Upper T/S paraspinals & chest at lower sternum Palpation Findings Soft Tissue Tightness, Tenderness Neck Palpation Location L>R UT, L Paraspinals Palpation Findings Soft Tissue Tightness, Tenderness Shoulders Palpation Location Around shoulder joints Palpation Findings Tenderness PT-OP-K Range of Motion Start: 07/02/23 16:35 Freq: Status: Active Protocol: Document 07/19/23 11:23 LRN (Rec: 07/19/23 17:28 LRN [id number]) Cervical Spine Range of Motion Cervical Spine Active Degrees Testing Position Sitting Flexion 38 Extension 42 Rotation Left 49 Rotation Right 47 Lateral Flexion Left 19 Lateral Flexion Right 25 ROM Limitations Pain Shoulder Goniometric Range of Motion Shoulder Right Active Testing Position Sitting Flexion 132 Abduction 110 External Rotation at 0 degrees Abduction 45 Internal Rotation Behind Back (text) Middle of buttock Comments Reaching behind head: Back of head Left Active Shoulder ROM WFL No Testing Position Sitting Flexion 110 Abduction 63 External Rotation at 0 degrees Abduction 35 Internal Rotation Behind Back (text) Lateral hip Comments Reaching behind head: Top of head. Hip Goniometric Range of Motion Hip Right Passive Hip ROM WFL No Testing Position Supine Internal Rotation 30 External Rotation 55 Comments PROM Limited by pain. Left Passive Hip ROM WFL No Testing Position Supine Internal Rotation 10 External Rotation 50 Comments PROM Limited by pain. PT-OP-L Special Tests Start: 07/02/23 16:35 Freq: Status: Active Protocol: Document 07/22/23 14:17 LRN (Rec: 07/22/23 16:19 LRN [id number]) Special Tests Cervical Spine Special Tests Upper Limb Tension Test Test Results + bilaterally with R worse than L. Comments RUE very limited in mobility, LUE mostly limited with radial nerve glide. PT-OP-M Strength Start: 07/02/23 16:35 Freq: Status: Active Protocol: Document 07/19/23 11:23 LRN (Rec: 07/19/23 17:28 LRN [id number]) Cervical Spine Strength Cervical Spine Manual Muscle Testing Testing Position Sitting Flexion (C1-2) 5 Normal Extension 5 Normal Rotation Left 5 Normal Rotation Right 5 Normal Lateral Flexion Left (C3) 5 Normal Lateral Flexion Right (C3) 5 Normal Shoulder Strength Shoulder Manual Muscle Testing Right Flexion 4 Good Abduction (C5) 3 Fair External Rotation 4+ Good+ Internal Rotation 4+ Good+ Comments All motions tested created shoulder pain. Left Flexion 5 Normal Abduction (C5) 3 Fair External Rotation 4+ Good+ Internal Rotation 5 Normal Comments All motions tested created shoulder pain. PT-OP-Q Treatments Start: 07/02/23 16:35 Freq: Status: Active Protocol: Document 10/08/23 13:54 SP (Rec: 10/08/23 14:32 SP [id number]) Therapeutic Exercises Supine Exercises Posture press Supine Exercise Name [place], arms ER'd @ 45 deg's AB, press back against plinth- hold 3 breaths Reps/Minutes 10 SH x5 reps Comments Much cuing to position, coordinate breath, and for pushing spine into plint HADD<> HABD Supine Exercise Name Shoulder HADD<>HABD Side bilateral Resistance AROM Equipment Used knees bent Reps/Minutes x10 reps good ROM response post posture press Comments good stretch, R little less ease mobiltiy fwd and L arm open back up Standing Exercises fly Standing Exercise Name gym review Side bilateral Resistance Tb #3 TB Reps/Minutes x10 Comments cued range no further chest press Standing Exercise Name gym review Side bilateral Resistance TB #3 TB Reps/Minutes x10 Comments cued no UT PT-OP-T Assessment and Plan Start: 07/02/23 16:35 Freq: Status: Active Protocol: Document 10/08/23 13:54 SP (Rec: 10/08/23 14:32 SP [id number]) Physical Therapy Assessment Goals Five Impairment LE (Greater trochanter, hamstring, quad, knee) pain Impairment Thigh pain 4-5/10 with occasional 8-9 shooting pain. LEFS is 44 with one question unanswered (40-59% impaired with score 32-47). 10/01/23: LBP rated 4/10, sometimes pain down leg; Thigh pain rated 2-3/10 with no shooting pain. LEFS score 49 (20-39% impaired, score 48-62 ). Short Term Goal (STG) Pt consistent with HEP & Ex workout of LE ex's total of 2- 3x/week and UE ex's 2-3x/wk to reduce LBP or thigh pain STG Duration 8 weeks (11/29/23) Group Home Goal (LTG) Improve function per LEFS score of 59 or greater. LTG Duration 12 weeks (12/24/23) Three Impairment Decreased bilateral shoulder mobility Short Term Goal (STG) Improve ROM to put in hair clips without noticing shoulder discomfort. 08/20/23: progressing: pt demonstrates a ble to reach over head to opposite LUE not and reach up in to cupboard with less pain. 08/27/23: notes tightness but not as much pain after manual, HEP review. Discussed continue home. 09/03/23: GOAL MET: able to put in hair clips self. 09/06/23: Stretch felt posteroinferior to brachium putting clip in hair. 10/01/23: Can put hair clips but feels strain in underside of L arm. STG Duration 08/18/23 (GOAL MET, but pt can feel discomfort 10/01/23) Group Home Goal (LTG) Improve ROM to remove T-Shirt blouse with an overhead or partially overhead motion. 09/03/23: pt is able to reachover top of her head to touch opposite side now. 09/06/23: Pt feels she is 30% better. 10/01/23: Pt feels she may be up to 40% better. LTG Duration 8 wks (11/29/23) progressing 10/01/23 One Impairment Pt lacks appropriate shoulder/ thoracic spine HEP. Short Term Goal (STG) Pt will be able to put on underarm deodorant with ease. 09/05/23: Can now hold arms overhead to put underarm deodorant. STG Duration 09/17/23 (7 weeks) (: MET GOAL) [employer] Goal (LTG) Pt will be independent in a self care HEP of shoulder/ thoracic/back/hip/knee ROM and strengthening ex's. 07/22/23: Shldr HEP: Codman's, AROM: ER, Flex, protraction; Resisted abby scapular stab: Shdr Ext & ADD. 08/06/23: HEP: Shoulder AROM : supine windshield wipe & flex; sup & standing scap pinches. 09/03/23: added side abd, open book, ER 1# DB. LTG Duration 12 weeks (12/24/23) progressed 09/03/23 Four Impairment LB pain rated 10 Impairment Walks 15' before LB starts to feel uncomfortable. [employer] Goal (LTG) Pt able to do a 30' on flat trail walk before back starts to feel uncomfortable. 10/01/23: LB tightens after walking a short distance. LTG Duration 12 weeks (12/24/23) Two Impairment Decreased shoulder stability and strength limiting function Impairment Pt limited in ability to lift L arm to put on underarm deodorant with ease. Pt limited in ability to sleep at night. Pt wakes after 2-3 hours of sleep and usually gets up to lay on recliner chair for another couple of hours of sleep. Short Term Goal (STG) Pt will be educated in best nighttime sleeping positions. 07/22/23: Pt educated in best nighttime sleep positions in sidelie & supine, using pillows to support her UE's and back. 08/02/23: time spent use pillow / towel support for side sleeping, see self care details. 07/30/23: last 2 nights slept 4 hrs and no meds assist. STG Duration 08/02/23 (2 weeks) (07/22/23: MET GOAL) Group Home Goal (LTG) Pt will be able to sleep 4-5 hrs at night before getting up to use BR, and return to sleep without having to sleep in recliner chair. 08/02/23: time spent use pillow / towel support for side sleeping, see self care details. 08/27/23: progressing able to sleep for 4 hrs on air mattress before wakes up, did go to reclined remaining 2 hrs sleep, no meds assist for pain needed. 09/06/23: Sleeping up to 3 hrs and once almost 4 hrs. LTG Duration 12 weeks (12/24/23) progressing 09/06/23 Assessment Summary Assessment Tx focused on core and shoulder strengthening with use of gravity resistance, painfree. Good feedback response to added chest press and fly motion with theraband resistance in PT to assimulate with discussion use of gym equipment at [facility] , pt verbalized understanding. Next tx will incorporate LE neutral glide and core/ LE strengthening. Physical Therapy Plan Frequency and Duration Frequency of Treatment 2x/Week Duration of treatment (weeks) 12 Plan of Care Start Date 10/01/23 Plan of Care End Date 12/24/23 Therapeutic Interventions Therapeutic Interventions Home Exercise Program,Joint Mobilizations,Manual Therapy, Neuromuscular Re-education, Patient/Caregiver Education, Self-Care/Home Management,Soft Tissue Mobilization, Therapeutic Activities, Therapeutic Exercises Modalities Cold Pack/Ice Massage,Electric Stimulation,Hot Packs, Iontophoresis,Ultrasound Other Therapeutic Interventions 4 mg/mL Dexamethasone with Sodium Phosphate. Next Visit Focus/Plan Next Note Type Treatment Note Next Visit Plan (Note: Minimize ex's for home due to pt's difficulty in doing home ex's). PT Next: Assess LB/hips - ROM , strength & special test for neuro involvement. Next: Review previously issued HEP: seated pendulums, & theraband. Progress shoulder to tolerate overhead movements. Add Gentle neural glides. Progress postural ex's and RC strengthening. Educate pt in proper posturing and body mechanics for ADLS w /RC protection in mind, and self care pain mgmt techniques . POC: L shoulder RC rehab, R shoulder arthritis pain rehab; LB/Hip therapy POC: Sciatic pain rehab including ROM, core stabilization, LE strengthening,
--- NOTE | 2023-10-15 13:45 | PT-OP ANOTE ---
Pt came in, reported didn't feel well enough to stay for appt, appt cancelled.
--- NOTE | 2023-10-22 16:10 | PT-OP ANOTE ---
Pt cancelled 2nd consecutive appt due to Covid + and still feeling low energy level and showing + when tests. Her next appt cancelled due to Dr appt conflict. She confirmed next scheduled appt 11/05 and plans to attend to be sure update with PT since Sep last seen. [employer] mentioned adding more appts and can call back to schedule more per POC last completed.
--- NOTE | 2023-11-05 15:31 | PT.OTN ---
Current Diagnoses Pain in right shoulder (11/05/23) Pain in left shoulder (11/05/23) Other kyphosis, thoracic region (11/05/23) Postural lordosis, thoracolumbar region (11/05/23) Postural lordosis, lumbosacral region (11/05/23) Cervicalgia (11/05/23) Muscle weakness (generalized) (11/05/23) Pain in right arm (11/05/23) Pain in left arm (11/05/23) Pain in right leg (11/05/23) Pain in left leg (11/05/23) Physical Therapy Treatment Note PT-OP-A Visit Information Start: 07/02/23 16:35 Freq: Status: Active Protocol: Document 11/05/23 13:47 LRN (Rec: 11/05/23 14:32 LRN [id number]) Out-Patient Physical Therapy Visit Information Visit Information Visit Type Treatment Note Visit Start Time 13:47 Visit Stop Time 14:27 Total Visit Minutes 40 Visit Number 12 Evaluation Information Evaluation Date 07/19/23 Precautions Precautions Arthritis, back pain Diabete's type II, Hypothyroidism, L broken ankle and tibia 2003. PT-OP-B Current Condition Start: 07/02/23 16:35 Freq: Status: Active Protocol: Document 07/19/23 11:23 LRN (Rec: 07/19/23 17:28 LRN [id number]) Current Condition History of Current Condition Onset Date ~05/03/23 Current Complaints Lan shoulder pain is interrupting sleep. Pain across LB, hip, thighs. History of Current Condition States her main focus is her Lan Shoulder pain (L stiffer than R). In last 2 months started to wake her up during the night (can sleep 5 hrs with rub cream). Had good mobility until April (went to [place] in March). She reports decreased shoulder ROM because difficulty putting on /off Tshirt and tucking shirt in the back into pants. Less bothersome, but present is pain across the Iliac crests with tightness and pain at IT Bands and quads. Sometimes sciatic pain down both legs. Neck is not bother her today. Prior Treatments and Tests X-rays (02/18/23): L shoulder - mod OA, Neck - DDD throughout spine with suggestion of bilateral foraminal stenosis at C4-5 through C6-7 levels. Lumbar Spine - DDD throughout spine, 8 mm anterolisthesis of L4 on L5. Future Testing and Treatments Planned Dr. Martinez appt 07/22/23 for GI dysfunction. Treatment Goals Patient/Caregiver Goals Pt goal:1) Sleep 4-5 hrs at night before getting up to use BR, and return to sleep for another couple of hours. 2) Improve ROM to take off T- Shirt blouse from an overhead or partial overhead postion and put in hair clips without noticing the shoulders discomfot and be able to lift L arm to put on deodorant with ease. Pt goals for LB/LE's: to address/create after shoulder rehab. Prior Functional Status Baseline Function- Other 5 hrs of sleep a night Current Functional Impairments (Reported) Functional Limitations- Other Interrupted sleeping every 2-3 hrs. Sleeps for a total of 7 hrs if able to sit up in a recliner to reduce shoulder pain, then can fall back asleep or sleeps in the recliner chair, nightly. Personal Factors Other Personal Factors That May Effect Chronic pain, Arthritis, Therapy/Recovery Diabetes type II. PT-OP-C Subjective Start: 07/02/23 16:35 Freq: Status: Active Protocol: Document 11/05/23 13:47 LRN (Rec: 11/05/23 14:32 LRN [id number]) OP-PT Subjective Patient Comments Patient Comments Has had COVID. Not able to exercise much. Most of discomfort is in the arms, tight. PT-OP-H Neuro Start: 07/02/23 16:35 Freq: Status: Active Protocol: Document 07/19/23 11:23 LRN (Rec: 07/19/23 17:28 LRN [id number]) Sensation Evaluation Comments Summary Comments Gross sensation in UE's assessed and found to be WNL. PT-OP-J Posture/Palpation/Skin Start: 07/02/23 16:35 Freq: Status: Active Protocol: Document 07/19/23 11:23 LRN (Rec: 07/19/23 17:28 LRN [id number]) Posture Evaluation Position Standing Head/C-Spine Posture Forward Head T-Spine Posture Increased Kyphosis L-Spine Posture Increased Lordosis Shoulder Posture (L) Rounded,(R) Rounded,(L) Forward,(R) Forward,(L) Elevated Scapula Posture (L) Elevated Pelvis Posture (R) PSIS Posterior Comments Posture Comments C-Curve of lower thoracic & lumbar spine with apex on the left. Iliac Crest height is level. Palpation Assessment Location Hips Palpation Location Bilateral Greater Trochanters & IT Bands Palpation Findings Tenderness Low Back Palpation Location PSIS's, QL at Iliac Crest, Lateral Sacral borders Palpation Findings Soft Tissue Tightness, Tenderness Thoracic region Palpation Location Upper T/S paraspinals & chest at lower sternum Palpation Findings Soft Tissue Tightness, Tenderness Neck Palpation Location L>R UT, L Paraspinals Palpation Findings Soft Tissue Tightness, Tenderness Shoulders Palpation Location Around shoulder joints Palpation Findings Tenderness PT-OP-K Range of Motion Start: 07/02/23 16:35 Freq: Status: Active Protocol: Document 11/05/23 13:47 LRN (Rec: 11/05/23 14:32 LRN [id number]) Hip Goniometric Range of Motion Hip Right Passive Testing Position Supine Internal Rotation 30 External Rotation 50 Left Passive Hip ROM WFL No Testing Position Supine Internal Rotation 20 External Rotation 65 PT-OP-L Special Tests Start: 07/02/23 16:35 Freq: Status: Active Protocol: Document 07/22/23 14:17 LRN (Rec: 07/22/23 16:19 LRN [id number]) Special Tests Cervical Spine Special Tests Upper Limb Tension Test Test Results + bilaterally with R worse than L. Comments RUE very limited in mobility, LUE mostly limited with radial nerve glide. PT-OP-M Strength Start: 07/02/23 16:35 Freq: Status: Active Protocol: Document 07/19/23 11:23 LRN (Rec: 07/19/23 17:28 LRN [id number]) Cervical Spine Strength Cervical Spine Manual Muscle Testing Testing Position Sitting Flexion (C1-2) 5 Normal Extension 5 Normal Rotation Left 5 Normal Rotation Right 5 Normal Lateral Flexion Left (C3) 5 Normal Lateral Flexion Right (C3) 5 Normal Shoulder Strength Shoulder Manual Muscle Testing Right Flexion 4 Good Abduction (C5) 3 Fair External Rotation 4+ Good+ Internal Rotation 4+ Good+ Comments All motions tested created shoulder pain. Left Flexion 5 Normal Abduction (C5) 3 Fair External Rotation 4+ Good+ Internal Rotation 5 Normal Comments All motions tested created shoulder pain. PT-OP-Q Treatments Start: 07/02/23 16:35 Freq: Status: Active Protocol: Document 11/05/23 13:47 LRN (Rec: 11/05/23 14:32 LRN [id number]) Therapeutic Exercises Supine Exercises Piriformis stretch Supine Exercise Name Knee to opp shdr Side left Reps/Minutes 2' Comments Extra time to determine max tolerated stretch. Fig 4 stretch Supine Exercise Name FIg 4 stretch Side right Reps/Minutes 2' Comments Extra time taken to determine max tolerated stretch. Posture press Supine Exercise Name Hooklie, arms ER'd @ 45 deg's AB, press back against plinth- hold 3 breaths Reps/Minutes 10 SH x10 reps Comments Much cuing to position, coordinate breath, and for pushing spine into plint HADD<> HABD Supine Exercise Name Shoulder HADD<>HABD Side bilateral Resistance AROM Equipment Used knees bent Reps/Minutes x10 reps good ROM response post posture press Comments good stretch, R little less ease mobiltiy fwd and L arm open back up Shoulder Flex Supine Exercise Name Active Shoulder flex stretch hold Side bilateral Resistance AROM alternating Reps/Minutes 10 rep x 5-10 SH Comments Pt moving appropriately slow. Scapular Protraction Supine Exercise Name Scapular protraction Side bilateral Equipment Used use model for visual mechanics Reps/Minutes 10x 2 Comments Cuing to keep elbows straight and control return Self-Care/Home Management Treatment Education Patient Education Home Exercise Program Activities Self-Care/Home Management Activities Issued & reviewed HEP stretches: Hip ER (R to start ), Hip IR (L to start). PT-OP-T Assessment and Plan Start: 07/02/23 16:35 Freq: Status: Active Protocol: Document 11/05/23 13:47 LRN (Rec: 11/05/23 14:32 [facility] [id number]) Physical Therapy Assessment Goals Five Impairment LE (Greater trochanter, hamstring, quad, knee) pain Impairment Thigh pain 4-5/10 with occasional 8-9 shooting pain. LEFS is 44 with one question unanswered (40-59% impaired with score 32-47). 10/01/23: LBP rated 4/10, sometimes pain down leg; Thigh pain rated 2-3/10 with no shooting pain. LEFS score 49 (20-39% impaired, score 48-62 ). Short Term Goal (STG) Pt consistent with HEP & Ex workout of LE ex's total of 2- 3x/week and UE ex's 2-3x/wk to reduce LBP or thigh pain. 11/05/23: After recent COVID, doing UE ex's daily at night. Added R hip ER & L hip IR stretch. STG Duration 8 weeks (11/29/23) progressed 11/05/23. Alf Goal (LTG) Improve function per LEFS score of 59 or greater. LTG Duration 12 weeks (12/24/23) Three Impairment Decreased bilateral shoulder mobility Short Term Goal (STG) Improve ROM to put in hair clips without noticing shoulder discomfort. 08/20/23: progressing: pt demonstrates a ble to reach over head to opposite LUE not and reach up in to cupboard with less pain. 08/27/23: notes tightness but not as much pain after manual, HEP review. Discussed continue home. 09/03/23: GOAL MET: able to put in hair clips self. 09/06/23: Stretch felt posteroinferior to brachium putting clip in hair. 10/01/23: Can put hair clips but feels strain in underside of L arm. 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 09/03/23: pt is able to reachover top of her head to touch opposite side now. 09/06/23: Pt feels she is 30% better. 10/01/23: Pt feels she may be up to 40% better. 11/05/23: Since Covid, decline ability to 30-35% better. LTG Duration 8 wks (11/29/23) progressing 10/01/23 One Impairment Pt lacks appropriate shoulder/ thoracic spine HEP. Short Term Goal (STG) Pt will be able to put on underarm deodorant with ease. 09/05/23: Can now hold arms overhead to put underarm deodorant. STG Duration 09/17/23 (7 weeks) (: MET GOAL) Alf Goal (LTG) Pt will be independent in a self care HEP of shoulder/ thoracic/back/hip/knee ROM and strengthening ex's. 07/22/23: Shldr HEP: Codman's, AROM: ER, Flex, protraction; Resisted lan scapular stab: Shdr Ext & ADD. 08/06/23: HEP: Shoulder AROM : supine windshield wipe & flex; sup & standing scap pinches. 09/03/23: added side abd, open book, ER 1# DB. LTG Duration 12 weeks (12/24/23) progressed 09/03/23 Four Impairment LB pain rated 02/04 Impairment Walks 15' before LB starts to feel uncomfortable. Alf Goal (LTG) Pt able to do a 30' on flat trail walk before back starts to feel uncomfortable. 10/01/23: LB tightens after walking a short distance. 11/05/23: Across Iliac Crest tightness after walking 15'. Pt is walking 30' with sometimes resting at 15'. LTG Duration 12 weeks (12/24/23) progressed 11/05/23 Two Impairment Decreased shoulder stability and strength limiting function Impairment Pt limited in ability to lift L arm to put on underarm deodorant with ease. Pt limited in ability to sleep at night. Pt wakes after 2-3 hours of sleep and usually gets up to lay on recliner chair for another couple of hours of sleep. Short Term Goal (STG) Pt will be educated in best nighttime sleeping positions. 07/22/23: Pt educated in best nighttime sleep positions in sidelie & supine, using pillows to support her UE's and back. 08/02/23: time spent use pillow / towel support for side sleeping, see self care details. 07/30/23: last 2 nights slept 4 hrs and no meds assist. STG Duration 08/02/23 (2 weeks) (07/22/23: MET GOAL) Alf Goal (LTG) Pt will be able to sleep 4-5 hrs at night before getting up to use BR, and return to sleep without having to sleep in recliner chair. 08/02/23: time spent use pillow / towel support for side sleeping, see self care details. 08/27/23: progressing able to sleep for 4 hrs on air mattress before wakes up, did go to reclined remaining 2 hrs sleep, no meds assist for pain needed. 09/06/23: Sleeping up to 3 hrs and once almost 4 hrs. 11/05/23: Sleeping in bed waking after 2-4 hrs, before going back to sleep with use of Tramadol. LTG Duration 12 weeks (12/24/23) progressing 11/05/23 Assessment Summary Assessment Pt has good recall of UE stretch from last session. Fair understanding of new LE hip stretches. Probably will need review. Progress slow due to time needed for repetition of instructions and review of exercise. Physical Therapy Plan Frequency and Duration Frequency of Treatment 2x/Week Duration of treatment (weeks) 12 Plan of Care Start Date 10/01/23 Plan of Care End Date 12/24/23 Next Visit Focus/Plan Next Note Type Treatment Note Next Visit Plan (Note: Min ex's for home due to pt's difficulty in doing home ex's). PT Next: Assess LB/hips - strength & special test for neuro involvement & LB ROM. Assess neck soft tissue (palp) . Next: Review previously issued HEP: seated pendulums, & theraband. Add HEP: Open book. Progress shoulder to tolerate overhead movements. Add Gentle neural glides. Progress postural ex's and RC strengthening. Educate pt in proper posturing and body mechanics for ADLS w /RC protection in mind, and self care pain mgmt techniques . POC: L shoulder RC rehab, R shoulder arthritis pain rehab; LB/Hip therapy POC: Sciatic pain rehab including ROM, core stabilization, LE strengthening,
--- NOTE | 2023-11-12 09:45 | PT.OTN ---
Current Diagnoses Pain in right shoulder (11/12/23) Pain in left shoulder (11/12/23) Other kyphosis, thoracic region (11/12/23) Postural lordosis, thoracolumbar region (11/12/23) Postural lordosis, lumbosacral region (11/12/23) Cervicalgia (11/12/23) Muscle weakness (generalized) (11/12/23) Pain in right arm (11/12/23) Pain in left arm (11/12/23) Pain in right leg (11/12/23) Pain in left leg (11/12/23) Physical Therapy Treatment Note PT-OP-A Visit Information Start: 07/02/23 16:35 Freq: Status: Active Protocol: Document 11/12/23 09:05 SP (Rec: 11/12/23 09:51 SP [id number]) Out-Patient Physical Therapy Visit Information Visit Information Visit Type Treatment Note Visit Start Time 09:05 Visit Stop Time 09:45 Total Visit Minutes 40 Visit Number 13 Number of [employer] Visits 1 Evaluation Information Evaluation Date 07/19/23 Precautions Precautions Arthritis, back pain Diabete's type II, Hypothyroidism, L broken ankle and tibia 2003. PT-OP-B Current Condition Start: 07/02/23 16:35 Freq: Status: Active Protocol: Document 07/19/23 11:23 LRN (Rec: 07/19/23 17:28 LRN [id number]) Current Condition History of Current Condition Onset Date ~05/03/23 Current Complaints Lan shoulder pain is interrupting sleep. Pain across LB, hip, thighs. History of Current Condition States her main focus is her Lan Shoulder pain (L stiffer than R). In last 2 months started to wake her up during the night (can sleep 5 hrs with rub cream). Had good mobility until April (went to [place] in March). She reports decreased shoulder ROM because difficulty putting on /off Tshirt and tucking shirt in the back into pants. Less bothersome, but present is pain across the Iliac crests with tightness and pain at IT Bands and quads. Sometimes sciatic pain down both legs. Neck is not bother her today. Prior Treatments and Tests X-rays (02/18/23): L shoulder - mod OA, Neck - DDD throughout spine with suggestion of bilateral foraminal stenosis at C4-5 through C6-7 levels. Lumbar Spine - DDD throughout spine, 8 mm anterolisthesis of L4 on L5. Future Testing and Treatments Planned Dr. Martinez appt 07/22/23 for GI dysfunction. Treatment Goals Patient/Caregiver Goals Pt goal:1) Sleep 4-5 hrs at night before getting up to use BR, and return to sleep for another couple of hours. 2) Improve ROM to take off T- Shirt blouse from an overhead or partial overhead postion and put in hair clips without noticing the shoulders discomfot and be able to lift L arm to put on deodorant with ease. Pt goals for LB/LE's: to address/create after shoulder rehab. Prior Functional Status Baseline Function- Other 5 hrs of sleep a night Current Functional Impairments (Reported) Functional Limitations- Other Interrupted sleeping every 2-3 hrs. Sleeps for a total of 7 hrs if able to sit up in a recliner to reduce shoulder pain, then can fall back asleep or sleeps in the recliner chair, nightly. Personal Factors Other Personal Factors That May Effect Chronic pain, Arthritis, Therapy/Recovery Diabetes type II. PT-OP-C Subjective Start: 07/02/23 16:35 Freq: Status: Active Protocol: Document 11/12/23 09:05 SP (Rec: 11/12/23 09:51 SP [id number]) OP-PT Subjective Patient Comments Patient Comments Pt reports can reach with LUE over to R side head and able sleep at least 4 hrs sleep with added topper on bed. She is using little dose Trazodone before bed. She does wake due to needing use bathroom mainly now. PT-OP-H Neuro Start: 07/02/23 16:35 Freq: Status: Active Protocol: Document 07/19/23 11:23 LRN (Rec: 07/19/23 17:28 LRN [id number]) Sensation Evaluation Comments Summary Comments Gross sensation in UE's assessed and found to be WNL. PT-OP-J Posture/Palpation/Skin Start: 07/02/23 16:35 Freq: Status: Active Protocol: Document 07/19/23 11:23 LRN (Rec: 07/19/23 17:28 LRN [id number]) Posture Evaluation Position Standing Head/C-Spine Posture Forward Head T-Spine Posture Increased Kyphosis L-Spine Posture Increased Lordosis Shoulder Posture (L) Rounded,(R) Rounded,(L) Forward,(R) Forward,(L) Elevated Scapula Posture (L) Elevated Pelvis Posture (R) PSIS Posterior Comments Posture Comments C-Curve of lower thoracic & lumbar spine with apex on the left. Iliac Crest height is level. Palpation Assessment Location Hips Palpation Location Bilateral Greater Trochanters & IT Bands Palpation Findings Tenderness Low Back Palpation Location PSIS's, QL at Iliac Crest, Lateral Sacral borders Palpation Findings Soft Tissue Tightness, Tenderness Thoracic region Palpation Location Upper T/S paraspinals & chest at lower sternum Palpation Findings Soft Tissue Tightness, Tenderness Neck Palpation Location L>R UT, L Paraspinals Palpation Findings Soft Tissue Tightness, Tenderness Shoulders Palpation Location Around shoulder joints Palpation Findings Tenderness PT-OP-K Range of Motion Start: 07/02/23 16:35 Freq: Status: Active Protocol: Document 11/05/23 13:47 LRN (Rec: 11/05/23 14:32 LRN [id number]) Hip Goniometric Range of Motion Hip Right Passive Testing Position Supine Internal Rotation 30 External Rotation 50 Left Passive Hip ROM WFL No Testing Position Supine Internal Rotation 20 External Rotation 65 PT-OP-L Special Tests Start: 07/02/23 16:35 Freq: Status: Active Protocol: Document 07/22/23 14:17 LRN (Rec: 07/22/23 16:19 LRN [id number]) Special Tests Cervical Spine Special Tests Upper Limb Tension Test Test Results + bilaterally with R worse than L. Comments RUE very limited in mobility, LUE mostly limited with radial nerve glide. PT-OP-M Strength Start: 07/02/23 16:35 Freq: Status: Active Protocol: Document 07/19/23 11:23 LRN (Rec: 07/19/23 17:28 LRN [id number]) Cervical Spine Strength Cervical Spine Manual Muscle Testing Testing Position Sitting Flexion (C1-2) 5 Normal Extension 5 Normal Rotation Left 5 Normal Rotation Right 5 Normal Lateral Flexion Left (C3) 5 Normal Lateral Flexion Right (C3) 5 Normal Shoulder Strength Shoulder Manual Muscle Testing Right Flexion 4 Good Abduction (C5) 3 Fair External Rotation 4+ Good+ Internal Rotation 4+ Good+ Comments All motions tested created shoulder pain. Left Flexion 5 Normal Abduction (C5) 3 Fair External Rotation 4+ Good+ Internal Rotation 5 Normal Comments All motions tested created shoulder pain. PT-OP-Q Treatments Start: 07/02/23 16:35 Freq: Status: Active Protocol: Document 11/12/23 09:05 SP (Rec: 11/12/23 09:51 SP [id number]) Therapeutic Exercises Supine Exercises Piriformis stretch Supine Exercise Name Knee to opp shdr then toward R hip Side left Reps/Minutes 2x 60 sec Comments good set up Fig 4 stretch Supine Exercise Name FIg 4 stretch Side right Reps/Minutes 2x 60 sec Comments improved self set up and talk through form, cue reminder hold time Posture press Supine Exercise Name Hooklie, arms ER'd @ 45 deg's AB, press back against plinth Reps/Minutes 10 SH x10 reps Comments Cue x1 set up knees bent, PPT& TA, UE press long axis table, HADD<> HABD Supine Exercise Name Shoulder HADD<>HABD Side bilateral Resistance AROM > 1# DB Equipment Used knees bent Reps/Minutes 5 reps stretch warm up, x10 reps 1# DB good ROM response Comments good stretch, then slight 2/10 in anterior L shld went away reps Scapular Protraction Supine Exercise Name Scapular protraction Side bilateral Equipment Used use model for visual mechanics Reps/Minutes 10x 2 Comments Cuing to keep elbows straight and control return Sidelying Exercises open book Sidelying Exercise Name Open Book- HEP reviewed Side bilateral Resistance AROM 5 reps> 1# DB x10 Comments cued slow painfree ROM, noted shaky HABD con/eccentric painfree on R Standing Exercises shoulder adduction Standing Exercise Name HEP reviewed- Side bilateral Resistance Greenlee TB Equipment Used anchored over door Reps/Minutes 2x10 Comments cued painfree range, good resistance shoulder extension Standing Exercise Name HEP reviewed- discussed keep doing HEP Side bilateral Resistance Greenlee TB Equipment Used anchored waist height Reps/Minutes 2x10 Comments cued range tolerant, limit scapular snap feeling (is not painful/just aware PT-OP-T Assessment and Plan Start: 07/02/23 16:35 Freq: Status: Active Protocol: Document 11/12/23 09:05 SP (Rec: 11/12/23 09:51 SP [id number]) Physical Therapy Assessment Goals Five Impairment LE (Greater trochanter, hamstring, quad, knee) pain Impairment Thigh pain 4-5/10 with occasional 8-9 shooting pain. LEFS is 44 with one question unanswered (40-59% impaired with score 32-47). 10/01/23: LBP rated 4/10, sometimes pain down leg; Thigh pain rated 2-3/10 with no shooting pain. LEFS score 49 (20-39% impaired, score 48-62 ). Short Term Goal (STG) Pt consistent with HEP & Ex workout of LE ex's total of 2- 3x/week and UE ex's 2-3x/wk to reduce LBP or thigh pain. 11/05/23: After recent COVID, doing UE ex's daily at night. Added R hip ER & L hip IR stretch. STG Duration 8 weeks (11/29/23) progressed 11/05/23. Automotive [employer] Specialist Goal (LTG) Improve function per LEFS score of 59 or greater. LTG Duration 12 weeks (12/24/23) Three Impairment Decreased bilateral shoulder mobility Short Term Goal (STG) Improve ROM to put in hair clips without noticing shoulder discomfort. 08/20/23: progressing: pt demonstrates a ble to reach over head to opposite LUE not and reach up in to cupboard with less pain. 08/27/23: notes tightness but not as much pain after manual, HEP review. Discussed continue home. 09/03/23: GOAL MET: able to put in hair clips self. 09/06/23: Stretch felt posteroinferior to brachium putting clip in hair. 10/01/23: Can put hair clips but feels strain in underside of L arm. STG Duration 08/18/23 (GOAL MET, but pt can feel discomfort 10/01/23) Automotive Brake Specialist Goal (LTG) Improve ROM to remove T-Shirt blouse with an overhead or partially overhead motion. 09/03/23: pt is able to reachover top of her head to touch opposite side now. 09/06/23: Pt feels she is 30% better. 10/01/23: Pt feels she may be up to 40% better. 11/05/23: Since Covid, decline ability to 30-35% better. LTG Duration 8 wks (11/29/23) progressing 10/01/23 One Impairment Pt lacks appropriate shoulder/ thoracic spine HEP. Short Term Goal (STG) Pt will be able to put on underarm deodorant with ease. 09/05/23: Can now hold arms overhead to put underarm deodorant. STG Duration 09/17/23 (7 weeks) (: MET GOAL) Senior Living Goal (LTG) Pt will be independent in a self care HEP of shoulder/ thoracic/back/hip/knee ROM and strengthening ex's. 07/22/23: Shldr HEP: Codman's, AROM: ER, Flex, protraction; Resisted lan scapular stab: Shdr Ext & ADD. 08/06/23: HEP: Shoulder AROM : supine windshield wipe & flex; sup & standing scap pinches. 09/03/23: added side abd, open book, ER 1# DB. LTG Duration 12 weeks (12/24/23) progressed 09/03/23 Four Impairment LB pain rated 02/04 Impairment Walks 15' before LB starts to feel uncomfortable. Automotive Brake Specialist Goal (LTG) Pt able to do a 30' on flat trail walk before back starts to feel uncomfortable. 10/01/23: LB tightens after walking a short distance. 11/05/23: Across Iliac Crest tightness after walking 15'. Pt is walking 30' with sometimes resting at 15'. LTG Duration 12 weeks (12/24/23) progressed 11/05/23 Two Impairment Decreased shoulder stability and strength limiting function Impairment Pt limited in ability to lift L arm to put on underarm deodorant with ease. Pt limited in ability to sleep at night. Pt wakes after 2-3 hours of sleep and usually gets up to lay on recliner chair for another couple of hours of sleep. Short Term Goal (STG) Pt will be educated in best nighttime sleeping positions. 07/22/23: Pt educated in best nighttime sleep positions in sidelie & supine, using pillows to support her UE's and back. 08/02/23: time spent use pillow / towel support for side sleeping, see self care details. 07/30/23: last 2 nights slept 4 hrs and no meds assist. STG Duration 08/02/23 (2 weeks) (07/22/23: MET GOAL) Senior Living Goal (LTG) Pt will be able to sleep 4-5 hrs at night before getting up to use BR, and return to sleep without having to sleep in recliner chair. 08/02/23: time spent use pillow / towel support for side sleeping, see self care details. 08/27/23: progressing able to sleep for 4 hrs on air mattress before wakes up, did go to reclined remaining 2 hrs sleep, no meds assist for pain needed. 09/06/23: Sleeping up to 3 hrs and once almost 4 hrs. 11/05/23: Sleeping in bed waking after 2-4 hrs, before going back to sleep with use of Tramadol. LTG Duration 12 weeks (12/24/23) progressing 11/05/23 Assessment Summary Assessment Pt improved fluid UE AROM then added 1#DB with cues for slower pacing to allow stability, good tiring response. Initially L anterior shld HABD motion 2/10 stiffness/discomfort, went away with reps. No adverse reactions to reviewed standing resisted UE past HEP. I feel pretty good actually. Discussed add TB back into HEP 3x/wk with verbal confirmation. Physical Therapy Plan Frequency and Duration Frequency of Treatment 2x/Week Duration of treatment (weeks) 12 Plan of Care Start Date 10/01/23 Plan of Care End Date 12/24/23 Therapeutic Interventions Therapeutic Interventions Home Exercise Program,Joint Mobilizations,Manual Therapy, Neuromuscular Re-education, Patient/Caregiver Education, Self-Care/Home Management,Soft Tissue Mobilization, Therapeutic Activities, Therapeutic Exercises Modalities Cold Pack/Ice Massage,Electric Stimulation,Hot Packs, Iontophoresis,Ultrasound Other Therapeutic Interventions 4 mg/mL Dexamethasone with Sodium Phosphate. Next Visit Focus/Plan Next Note Type Treatment Note Next Visit Plan Assess reponse to added resistance last tx. Discuss ( Note: Min ex's for home due to pt's difficulty in doing home ex's). PT Next: Assess LB/hips - strength & special test for neuro involvement & LB ROM. Assess neck soft tissue (palp) . Next: Review previously issued HEP: seated pendulums, Progress shoulder to tolerate overhead movements. Add Gentle neural glides. Progress postural ex's and RC strengthening. Educate pt in proper posturing and body mechanics for ADLS w /RC protection in mind, and self care pain mgmt techniques . POC: L shoulder RC rehab, R shoulder arthritis pain rehab; LB/Hip therapy POC: Sciatic pain rehab including ROM, core stabilization, LE strengthening,
--- NOTE | 2023-11-28 12:19 | PT.OTN ---
Current Diagnoses Pain in right shoulder (11/28/23) Pain in left shoulder (11/28/23) Other kyphosis, thoracic region (11/28/23) Postural lordosis, thoracolumbar region (11/28/23) Postural lordosis, lumbosacral region (11/28/23) Cervicalgia (11/28/23) Muscle weakness (generalized) (11/28/23) Pain in right arm (11/28/23) Pain in left arm (11/28/23) Pain in right leg (11/28/23) Pain in left leg (11/28/23) Physical Therapy Treatment Note PT-OP-A Visit Information Start: 07/02/23 16:35 Freq: Status: Active Protocol: Document 11/28/23 11:22 LRN (Rec: 11/28/23 12:18 LRN [id number]) Out-Patient Physical Therapy Visit Information Visit Information Visit Type Treatment Note Visit Start Time 11:22 Visit Stop Time 12:05 Visit Number 14 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 PT-OP-B Current Condition Start: 07/02/23 16:35 Freq: Status: Active Protocol: Document 07/19/23 11:23 LRN (Rec: 07/19/23 17:28 LRN [id number]) Current Condition History of Current Condition Onset Date ~05/03/23 Current Complaints Lan shoulder pain is interrupting sleep. Pain across LB, hip, thighs. History of Current Condition States her main focus is her Lan Shoulder pain (L stiffer than R). In last 2 months started to wake her up during the night (can sleep 5 hrs with rub cream). Had good mobility until April (went to [place] in March). She reports decreased shoulder ROM because difficulty putting on /off Tshirt and tucking shirt in the back into pants. Less bothersome, but present is pain across the Iliac crests with tightness and pain at IT Bands and quads. Sometimes sciatic pain down both legs. Neck is not bother her today. Prior Treatments and Tests X-rays (02/18/23): L shoulder - mod OA, Neck - DDD throughout spine with suggestion of bilateral foraminal stenosis at C4-5 through C6-7 levels. Lumbar Spine - DDD throughout spine, 8 mm anterolisthesis of L4 on L5. Future Testing and Treatments Planned Dr. Martinez appt 07/22/23 for GI dysfunction. Treatment Goals Patient/Caregiver Goals Pt goal:1) Sleep 4-5 hrs at night before getting up to use BR, and return to sleep for another couple of hours. 2) Improve ROM to take off T- Shirt blouse from an overhead or partial overhead postion and put in hair clips without noticing the shoulders discomfot and be able to lift L arm to put on deodorant with ease. Pt goals for LB/LE's: to address/create after shoulder rehab. Prior Functional Status Baseline Function- Other 5 hrs of sleep a night Current Functional Impairments (Reported) Functional Limitations- Other Interrupted sleeping every 2-3 hrs. Sleeps for a total of 7 hrs if able to sit up in a recliner to reduce shoulder pain, then can fall back asleep or sleeps in the recliner chair, nightly. Personal Factors Other Personal Factors That May Effect Chronic pain, Arthritis, Therapy/Recovery Diabetes type II. PT-OP-C Subjective Start: 07/02/23 16:35 Freq: Status: Active Protocol: Document 11/28/23 11:22 LRN (Rec: 11/28/23 12:18 LRN [id number]) OP-PT Subjective Patient Comments Patient Comments States sleep is a little better, but doesn't know if it is because of a mattress topper or low dose psychiatric med, No longer using Meloxicam. Sleeping between 4 -6 interrupted hours, but not due to pain. PT-OP-H Neuro Start: 07/02/23 16:35 Freq: Status: Active Protocol: Document 07/19/23 11:23 LRN (Rec: 07/19/23 17:28 LRN [id number]) Sensation Evaluation Comments Summary Comments Gross sensation in UE's assessed and found to be WNL. PT-OP-J Posture/Palpation/Skin Start: 07/02/23 16:35 Freq: Status: Active Protocol: Document 07/19/23 11:23 LRN (Rec: 07/19/23 17:28 LRN [id number]) Posture Evaluation Position Standing Head/C-Spine Posture Forward Head T-Spine Posture Increased Kyphosis L-Spine Posture Increased Lordosis Shoulder Posture (L) Rounded,(R) Rounded,(L) Forward,(R) Forward,(L) Elevated Scapula Posture (L) Elevated Pelvis Posture (R) PSIS Posterior Comments Posture Comments C-Curve of lower thoracic & lumbar spine with apex on the left. Iliac Crest height is level. Palpation Assessment Location Hips Palpation Location Bilateral Greater Trochanters & IT Bands Palpation Findings Tenderness Low Back Palpation Location PSIS's, QL at Iliac Crest, Lateral Sacral borders Palpation Findings Soft Tissue Tightness, Tenderness Thoracic region Palpation Location Upper T/S paraspinals & chest at lower sternum Palpation Findings Soft Tissue Tightness, Tenderness Neck Palpation Location L>R UT, L Paraspinals Palpation Findings Soft Tissue Tightness, Tenderness Shoulders Palpation Location Around shoulder joints Palpation Findings Tenderness PT-OP-K Range of Motion Start: 07/02/23 16:35 Freq: Status: Active Protocol: Document 11/28/23 11:22 LRN (Rec: 11/28/23 12:18 LRN [id number]) Hip Goniometric Range of Motion Hip Right Passive Testing Position Supine Straight Leg Raise 60 Left Passive Testing Position Supine Straight Leg Raise 60 PT-OP-L Special Tests Start: 07/02/23 16:35 Freq: Status: Active Protocol: Document 07/22/23 14:17 LRN (Rec: 07/22/23 16:19 LRN [id number]) Special Tests Cervical Spine Special Tests Upper Limb Tension Test Test Results + bilaterally with R worse than L. Comments RUE very limited in mobility, LUE mostly limited with radial nerve glide. PT-OP-M Strength Start: 07/02/23 16:35 Freq: Status: Active Protocol: Document 07/19/23 11:23 LRN (Rec: 07/19/23 17:28 LRN [id number]) Cervical Spine Strength Cervical Spine Manual Muscle Testing Testing Position Sitting Flexion (C1-2) 5 Normal Extension 5 Normal Rotation Left 5 Normal Rotation Right 5 Normal Lateral Flexion Left (C3) 5 Normal Lateral Flexion Right (C3) 5 Normal Shoulder Strength Shoulder Manual Muscle Testing Right Flexion 4 Good Abduction (C5) 3 Fair External Rotation 4+ Good+ Internal Rotation 4+ Good+ Comments All motions tested created shoulder pain. Left Flexion 5 Normal Abduction (C5) 3 Fair External Rotation 4+ Good+ Internal Rotation 5 Normal Comments All motions tested created shoulder pain. PT-OP-Q Treatments Start: 07/02/23 16:35 Freq: Status: Active Protocol: Document 11/28/23 11:22 LRN (Rec: 11/28/23 12:18 [facility] [id number]) Therapeutic Exercises Supine Exercises Piriformis stretch Supine Exercise Name Knee to opp shdr then toward R hip Side left Reps/Minutes 2x 60 sec Comments good set up Fig 4 stretch Supine Exercise Name FIg 4 stretch Side right Reps/Minutes 2x 60 sec Comments improved self set up and talk through form, cue reminder hold time Posture press Supine Exercise Name Hooklie, arms ER'd @ 45 deg's AB, arch upper back-hold 3 breaths Reps/Minutes 10 SH x10 reps Comments Cue x1 set up knees bent, PPT& TA, UE press long axis table, HADD<> HABD Supine Exercise Name Shoulder HADD<>HABD Side bilateral Resistance AROM > 1# DB Equipment Used knees bent Reps/Minutes 10 x 2 reps 1# Comments good stretch, then slight 2/10 in anterior L shld went away reps Shoulder Flex Supine Exercise Name Active Shoulder flex stretch hold Side bilateral Resistance AROM alternating Equipment Used 1# Reps/Minutes 10 rep x 3-5 SH Comments Pt moving appropriately slow. Scapular Protraction Supine Exercise Name Scapular protraction Side bilateral Equipment Used 1# Reps/Minutes 10x 2 Comments Cuing to keep elbows straight and control return Self-Care/Home Management Treatment Education Other Education Encouraged pt to use a 16oz can as 1# wgt. PT-OP-T Assessment and Plan Start: 07/02/23 16:35 Freq: Status: Active Protocol: Document 11/28/23 11:22 LRN (Rec: 11/28/23 12:18 [facility] [id number]) Physical Therapy Assessment Goals Five Impairment LE (Greater trochanter, hamstring, quad, knee) pain Impairment Thigh pain 4-5/10 with occasional 8-9 shooting pain. LEFS is 44 with one question unanswered (40-59% impaired with score 32-47). 10/01/23: LBP rated 4/10, sometimes pain down leg; Thigh pain rated 2-3/10 with no shooting pain. LEFS score 49 (20-39% impaired, score 48-62 ). Short Term Goal (STG) Pt consistent with HEP & Ex workout of LE ex's total of 2- 3x/week and UE ex's 2-3x/wk to reduce LBP or thigh pain. 11/05/23: After recent COVID, doing UE ex's daily at night. Added R hip ER & L hip IR stretch. STG Duration 8 weeks (11/29/23) progressed 11/05/23. Dairy Cattle Farmer Goal (LTG) Improve function per LEFS score of 59 or greater. LTG Duration 12 weeks (12/24/23) Three Impairment Decreased bilateral shoulder mobility Short Term Goal (STG) Improve ROM to put in hair clips without noticing shoulder discomfort. 08/20/23: progressing: pt demonstrates a ble to reach over head to opposite LUE not and reach up in to cupboard with less pain. 08/27/23: notes tightness but not as much pain after manual, HEP review. Discussed continue home. 09/03/23: GOAL MET: able to put in hair clips self. 09/06/23: Stretch felt posteroinferior to brachium putting clip in hair. 10/01/23: Can put hair clips but feels strain in underside of L arm. STG Duration 08/18/23 (11/28/23: GOAL MET) Correction Goal (LTG) Improve ROM to remove T-Shirt blouse with an overhead or partially overhead motion. 09/03/23: pt is able to reachover top of her head to touch opposite side now. 09/06/23: Pt feels she is 30% better. 10/01/23: Pt feels she may be up to 40% better. 11/05/23: Since Covid, decline ability to 30-35% better. 11/28/23: Pt demonstrates ability to remove loose T- shirt and can reach to opp side of head. LTG Duration 8 wks (11/29/23) (11/28/23: MET GOAL) One Impairment Pt lacks appropriate shoulder/ thoracic spine HEP. Short Term Goal (STG) Pt will be able to put on underarm deodorant with ease. 09/05/23: Can now hold arms overhead to put underarm deodorant. STG Duration 09/17/23 (7 weeks) (: MET GOAL) Correction Goal (LTG) Pt will be independent in a self care HEP of shoulder/ thoracic/back/hip/knee ROM and strengthening ex's. 07/22/23: Shldr HEP: Codman's, AROM: ER, Flex, protraction; Resisted lan scapular stab: Shdr Ext & ADD. 08/06/23: HEP: Shoulder AROM : supine windshield wipe & flex; sup & standing scap pinches. 09/03/23: added side abd, open book, ER 1# DB. 11/28/23: I/S adding 1# wgt for HABD-HADD, alt arm lifts and scap protraction. LTG Duration 12 weeks (12/24/23) progressed 11/28/22 Four Impairment LB pain rated 02/04 Impairment Walks 15' before LB starts to feel uncomfortable. Dairy Cattle Farmer Goal (LTG) Pt able to do a 30' on flat trail walk before back starts to feel uncomfortable. 10/01/23: LB tightens after walking a short distance. 11/05/23: Across Iliac Crest tightness after walking 15'. Pt is walking 30' with sometimes resting at 15'. 11/28/23: Walking 20' without having to sit down due to low level of pain from tightness/ discomfort. LTG Duration 12 weeks (12/24/23) progressed 11/28/23 Two Impairment Decreased shoulder stability and strength limiting function Impairment Pt limited in ability to lift L arm to put on underarm deodorant with ease. Pt limited in ability to sleep at night. Pt wakes after 2-3 hours of sleep and usually gets up to lay on recliner chair for another couple of hours of sleep. Short Term Goal (STG) Pt will be educated in best nighttime sleeping positions. 07/22/23: Pt educated in best nighttime sleep positions in sidelie & supine, using pillows to support her UE's and back. 08/02/23: time spent use pillow / towel support for side sleeping, see self care details. 07/30/23: last 2 nights slept 4 hrs and no meds assist. STG Duration 08/02/23 (2 weeks) (07/22/23: MET GOAL) Dairy Cattle Farmer Goal (LTG) Pt will be able to sleep 4-5 hrs at night before getting up to use BR, and return to sleep without having to sleep in recliner chair. 08/02/23: time spent use pillow / towel support for side sleeping, see self care details. 08/27/23: progressing able to sleep for 4 hrs on air mattress before wakes up, did go to reclined remaining 2 hrs sleep, no meds assist for pain needed. 09/06/23: Sleeping up to 3 hrs and once almost 4 hrs. 11/05/23: Sleeping in bed waking after 2-4 hrs, before going back to sleep with use of Tramadol. 11/28/23: Sleeping 4-6 interrupted hours (not interrupted due to pain), and can get back to sleep in bed without a problem. LTG Duration 12 weeks (12/24/23) (: MET GOAL) Assessment Summary Assessment Pt is a 73 yo female who presented with complaints of pain in most areas of her body , most interested decreasing shoulder pain to improve sleep . She returns after 2 weeks with report she has not added wgt ot her HADD-HABD home ex, because only has a 2# hand wgt at home. Pt encouraged to add wgt to ex's of HADD-HABD & alt arm lifts. + PSLR is 60 deg's bilaterally. Pt able to remove shirt overhead and tolerates overhead movements, able to reach to opp side of head. Physical Therapy Plan Frequency and Duration Frequency of Treatment 2x/Week Duration of treatment (weeks) 12 Plan of Care Start Date 10/01/23 Plan of Care End Date 12/24/23 Next Visit Focus/Plan Next Note Type Treatment Note Next Visit Plan Assess reponse to added resistance last tx. (Note: Min addition of home ex's due to pt's difficulty in doing home ex's). Pt to return Questionnaires for review (LTG #5). PT Next: Assess LB/hips - strength test. Assess neck soft tissue (palp). Next: Add Gentle neural glides. Progress postural ex's and RC strengthening. Educate pt in proper posturing and body mechanics for ADLS w /RC protection in mind, and self care pain mgmt techniques . POC Shoulders: L shoulder RC rehab, R shoulder arthritis pain rehab; POC LB/Hip therapy: Sciatic pain rehab including ROM, core stabilization, LE strengthening,
--- NOTE | 2023-12-03 15:57 | PT.OTN ---
Current Diagnoses Pain in right shoulder (12/03/23) Pain in left shoulder (12/03/23) Other kyphosis, thoracic region (12/03/23) Postural lordosis, thoracolumbar region (12/03/23) Postural lordosis, lumbosacral region (12/03/23) Cervicalgia (12/03/23) Muscle weakness (generalized) (12/03/23) Pain in right arm (12/03/23) Pain in left arm (12/03/23) Pain in right leg (12/03/23) Pain in left leg (12/03/23) Physical Therapy Treatment Note PT-OP-A Visit Information Start: 07/02/23 16:35 Freq: Status: Active Protocol: Document 12/03/23 13:46 LRN (Rec: 12/03/23 14:34 LRN [id number]) Out-Patient Physical Therapy Visit Information Visit Information Visit Type Treatment Note Visit Start Time 13:46 Visit Stop Time 14:25 Visit Number 15 Evaluation Information Evaluation Date 07/19/23 Precautions Precautions Arthritis, back pain Diabete's type II, Hypothyroidism, L broken ankle and tibia 2003. PT-OP-B Current Condition Start: 07/02/23 16:35 Freq: Status: Active Protocol: Document 07/19/23 11:23 LRN (Rec: 07/19/23 17:28 LRN [id number]) Current Condition History of Current Condition Onset Date ~05/03/23 Current Complaints Lan shoulder pain is interrupting sleep. Pain across LB, hip, thighs. History of Current Condition States her main focus is her Lan Shoulder pain (L stiffer than R). In last 2 months started to wake her up during the night (can sleep 5 hrs with rub cream). Had good mobility until April (went to [place] in March). She reports decreased shoulder ROM because difficulty putting on /off Tshirt and tucking shirt in the back into pants. Less bothersome, but present is pain across the Iliac crests with tightness and pain at IT Bands and quads. Sometimes sciatic pain down both legs. Neck is not bother her today. Prior Treatments and Tests X-rays (02/18/23): L shoulder - mod OA, Neck - DDD throughout spine with suggestion of bilateral foraminal stenosis at C4-5 through C6-7 levels. Lumbar Spine - DDD throughout spine, 8 mm anterolisthesis of L4 on L5. Future Testing and Treatments Planned Dr. Martinez appt 07/22/23 for GI dysfunction. Treatment Goals Patient/Caregiver Goals Pt goal:1) Sleep 4-5 hrs at night before getting up to use BR, and return to sleep for another couple of hours. 2) Improve ROM to take off T- Shirt blouse from an overhead or partial overhead postion and put in hair clips without noticing the shoulders discomfot and be able to lift L arm to put on deodorant with ease. Pt goals for LB/LE's: to address/create after shoulder rehab. Prior Functional Status Baseline Function- Other 5 hrs of sleep a night Current Functional Impairments (Reported) Functional Limitations- Other Interrupted sleeping every 2-3 hrs. Sleeps for a total of 7 hrs if able to sit up in a recliner to reduce shoulder pain, then can fall back asleep or sleeps in the recliner chair, nightly. Personal Factors Other Personal Factors That May Effect Chronic pain, Arthritis, Therapy/Recovery Diabetes type II. PT-OP-C Subjective Start: 07/02/23 16:35 Freq: Status: Active Protocol: Document 12/03/23 13:46 LRN (Rec: 12/03/23 14:34 LRN [id number]) OP-PT Subjective Patient Comments Patient Comments Can walk 20-30' withoug sitting down. Patient Questionnaires Lower Extremity Functional Scale LEFS Score 37 LEFS Impairment 40 to 59% Impaired (Score 32- 47) Oswestry Low Back Index Oswestry Score 30 Oswestry Impairment 20 to 39% Impaired (Score 20- 39) Quick Dash- Upper Extremity Quick Dash UE Score 50 Quick Dash UE Impairment 40 to 59% Impaired (Score 40- 59) OP-PT Pain Assessment Pain Assessment Grid Paper Pain Assessment Grid Completed Yes Location Anterior thighs Pain Location Details Anterior thighs Intensity 0 Scale Used Numeric (0 - 10) Sacral Borders Pain Location Details R sacral border Intensity 1 Scale Used Numeric (0 - 10) Lateral thighs Pain Location Details R lateral hip and L Lateral Iliac Crest Intensity 4 Scale Used Numeric (0 - 10) Low Back Pain Location Details Low back Intensity 4 Scale Used Numeric (0 - 10) Upper back Pain Location Details Upper back: lateral mid back, scapular med border, Intensity 2 Scale Used Numeric (0 - 10) Shoulders Pain Location Details Upper shoulders Intensity 2 Scale Used Numeric (0 - 10) PT-OP-H Neuro Start: 07/02/23 16:35 Freq: Status: Active Protocol: Document 07/19/23 11:23 LRN (Rec: 07/19/23 17:28 LRN [id number]) Sensation Evaluation Comments Summary Comments Gross sensation in UE's assessed and found to be WNL. PT-OP-J Posture/Palpation/Skin Start: 07/02/23 16:35 Freq: Status: Active Protocol: Document 07/19/23 11:23 LRN (Rec: 07/19/23 17:28 LRN [id number]) Posture Evaluation Position Standing Head/C-Spine Posture Forward Head T-Spine Posture Increased Kyphosis L-Spine Posture Increased Lordosis Shoulder Posture (L) Rounded,(R) Rounded,(L) Forward,(R) Forward,(L) Elevated Scapula Posture (L) Elevated Pelvis Posture (R) PSIS Posterior Comments Posture Comments C-Curve of lower thoracic & lumbar spine with apex on the left. Iliac Crest height is level. Palpation Assessment Location Hips Palpation Location Bilateral Greater Trochanters & IT Bands Palpation Findings Tenderness Low Back Palpation Location PSIS's, QL at Iliac Crest, Lateral Sacral borders Palpation Findings Soft Tissue Tightness, Tenderness Thoracic region Palpation Location Upper T/S paraspinals & chest at lower sternum Palpation Findings Soft Tissue Tightness, Tenderness Neck Palpation Location L>R UT, L Paraspinals Palpation Findings Soft Tissue Tightness, Tenderness Shoulders Palpation Location Around shoulder joints Palpation Findings Tenderness PT-OP-K Range of Motion Start: 07/02/23 16:35 Freq: Status: Active Protocol: Document 11/28/23 11:22 LRN (Rec: 11/28/23 12:18 LRN [id number]) Hip Goniometric Range of Motion Hip Right Passive Testing Position Supine Straight Leg Raise 60 Left Passive Testing Position Supine Straight Leg Raise 60 PT-OP-L Special Tests Start: 07/02/23 16:35 Freq: Status: Active Protocol: Document 07/22/23 14:17 LRN (Rec: 07/22/23 16:19 LRN [id number]) Special Tests Cervical Spine Special Tests Upper Limb Tension Test Test Results + bilaterally with R worse than L. Comments RUE very limited in mobility, LUE mostly limited with radial nerve glide. PT-OP-M Strength Start: 07/02/23 16:35 Freq: Status: Active Protocol: Document 12/03/23 13:46 LRN (Rec: 12/03/23 14:34 LRN [id number]) Hip Strength Hip Manual Muscle Testing Right Comments Strength 5/5 Left Comments Strength 5/5 PT-OP-Q Treatments Start: 07/02/23 16:35 Freq: Status: Active Protocol: Document 12/03/23 13:46 LRN (Rec: 12/03/23 14:34 LRN [id number]) Therapeutic Exercises Supine Exercises Hip Flex Supine Exercise Name Hip Flex Side bilateral Reps/Minutes 1x Comments MMT taken Piriformis stretch Supine Exercise Name Knee to opp shdr then toward R hip Side left Reps/Minutes 2x 60 sec Comments good set up Fig 4 stretch Supine Exercise Name FIg 4 stretch Side right Reps/Minutes 2x 60 sec Comments improved self set up and talk through form, cue reminder hold time Posture press Supine Exercise Name Hooklie, arms ER'd @ 45 deg's AB, arch upper back-hold 3 breaths Reps/Minutes 10 SH x10 reps Comments Cue x1 set up knees bent, PPT& TA, UE press long axis table, HADD<> HABD Supine Exercise Name Shoulder HADD<>HABD Side bilateral Resistance AROM > 1# DB Equipment Used knees bent Reps/Minutes 10 x 2 reps 1# Comments good stretch, then slight 2/10 in anterior L shld went away reps Shoulder Flex Supine Exercise Name Active Shoulder flex stretch hold Side bilateral Resistance AROM alternating Equipment Used 1# Reps/Minutes 10 rep x 3-5 SH Comments Pt moving appropriately slow. Scapular Protraction Supine Exercise Name Scapular protraction Side bilateral Equipment Used 1# Reps/Minutes 10x 2 Comments Cuing to keep elbows straight and control return Prone Exercises Hip Ext Prone Exercise Name Hip Ext Side bilateral Reps/Minutes 2x Comments Cuing to keep hips down to isolate glutes. MMT taken Sidelying Exercises Hip AB Sidelying Exercise Name Hip AB Reps/Minutes 2x Comments MMT Taken Sitting Exercises Hip IR/ER Sitting Exercise Name Hip IR/ER Side bilateral Reps/Minutes 2x Comments MMT taken PT-OP-T Assessment and Plan Start: 07/02/23 16:35 Freq: Status: Active Protocol: Document 12/03/23 13:46 LRN (Rec: 12/03/23 14:34 LRN [id number]) Physical Therapy Assessment Goals Five Impairment LE (Greater trochanter, hamstring, quad, knee) pain Impairment Thigh pain 4-5/10 with occasional 8-9 shooting pain. LEFS is 44 with one question unanswered (40-59% impaired with score 32-47). 10/01/23: LBP rated 4/10, sometimes pain down leg; Thigh pain rated 2-3/10 with no shooting pain. LEFS score 49 (20-39% impaired, score 48-62 ). Short Term Goal (STG) Pt consistent with HEP & Ex workout of LE ex's total of 2- 3x/week and UE ex's 2-3x/wk to reduce LBP or thigh pain. 11/05/23: After recent COVID, doing UE ex's daily at night. Added R hip ER & L hip IR stretch. 12/03/23: 2x/wk doing leg ex' s, 2-3x/wk with arm ex's. STG Duration 8 weeks (11/29/23) progressed 11/05/23. Steel Pickler Goal (LTG) Improve function per LEFS score of 59 or greater. 12/03/23: LEFS score is 37. LTG Duration 12 weeks (12/24/23) Worse 04/20 One Impairment Pt lacks appropriate shoulder/ thoracic spine HEP. Short Term Goal (STG) Pt will be able to put on underarm deodorant with ease. 09/05/23: Can now hold arms overhead to put underarm deodorant. STG Duration 09/17/23 (7 weeks) (: MET GOAL) Nursing Home Goal (LTG) Pt will be independent in a self care HEP of shoulder/ thoracic/back/hip/knee ROM and strengthening ex's. 07/22/23: Shldr HEP: Codman's, AROM: ER, Flex, protraction; Resisted lan scapular stab: Shdr Ext & ADD. 08/06/23: HEP: Shoulder AROM : supine windshield wipe & flex; sup & standing scap pinches. 09/03/23: added side abd, open book, ER 1# DB. 11/28/23: I/S adding 1# wgt for HABD-HADD, alt arm lifts and scap protraction. LTG Duration 12 weeks (12/24/23) progressed 11/28/22 Four Impairment LB pain rated 4/10 Impairment Walks 15' before LB starts to feel uncomfortable. Nursing Home Goal (LTG) Pt able to do a 30' on flat trail walk before back starts to feel uncomfortable. 10/01/23: LB tightens after walking a short distance. 11/05/23: Across Iliac Crest tightness after walking 15'. Pt is walking 30' with sometimes resting at 15'. 11/28/23: Walking 20' without having to sit down due to low level of pain from tightness/ discomfort. 12/03/23: Walking 20-30' not consistently before needing to sit, and can walk up to 15' before the LB starts to tighten and cause discomfort w /o having to sit down. LTG Duration 12 weeks (12/24/23) progressed 11/28/23 Assessment Summary Assessment No functional improvement with LE's per LEFS score. She is having more complaints of general muscle soreness as she is worried from recent information regarding use of Ozempic effecting muscle cells . Her hip strength is very good at 5/5. Pt not able to tolerate increase in resistance with exercise, not able to recall response to exercise of last session. Physical Therapy Plan Frequency and Duration Frequency of Treatment 2x/Week Duration of treatment (weeks) 12 Plan of Care Start Date 10/01/23 Plan of Care End Date 12/24/23 Next Visit Focus/Plan Next Note Type Treatment Note Next Visit Plan (Note: Min addition of home ex's due to pt's difficulty in doing home ex's). Next: Assess neck soft tissue (palp). Next: Add Gentle neural glides. Progress postural ex's and RC strengthening. Educate pt in proper posturing and body mechanics for ADLS w /RC protection in mind, and self care pain mgmt techniques . POC Shoulders: L shoulder RC rehab, R shoulder arthritis pain rehab; POC LB/Hip therapy: Sciatic pain rehab including ROM, core stabilization, LE strengthening,
--- NOTE | 2023-12-17 15:16 | PT.OTN ---
Current Diagnoses Pain in right shoulder (12/17/23) Pain in left shoulder (12/17/23) Other kyphosis, thoracic region (12/17/23) Postural lordosis, thoracolumbar region (12/17/23) Postural lordosis, lumbosacral region (12/17/23) Cervicalgia (12/17/23) Muscle weakness (generalized) (12/17/23) Pain in right arm (12/17/23) Pain in left arm (12/17/23) Pain in right leg (12/17/23) Pain in left leg (12/17/23) Physical Therapy Treatment Note PT-OP-A Visit Information Start: 07/02/23 16:35 Freq: Status: Active Protocol: Document 12/17/23 14:33 SP (Rec: 12/17/23 15:38 SP [id number]) Out-Patient Physical Therapy Visit Information Visit Information Visit Type Treatment Note Visit Start Time 14:33 Visit Stop Time 15:16 Visit Number 16 Number of YARROW GATHERER Visits 1 Evaluation Information Evaluation Date 07/19/23 Precautions Precautions Arthritis, back pain Diabete's type II, Hypothyroidism, L broken ankle and tibia 2003. PT-OP-B Current Condition Start: 07/02/23 16:35 Freq: Status: Active Protocol: Document 07/19/23 11:23 LRN (Rec: 07/19/23 17:28 LRN [id number]) Current Condition History of Current Condition Onset Date ~05/03/23 Current Complaints Lan shoulder pain is interrupting sleep. Pain across LB, hip, thighs. History of Current Condition States her main focus is her Lan Shoulder pain (L stiffer than R). In last 2 months started to wake her up during the night (can sleep 5 hrs with rub cream). Had good mobility until April (went to [place] in March). She reports decreased shoulder ROM because difficulty putting on /off Tshirt and tucking shirt in the back into pants. Less bothersome, but present is pain across the Iliac crests with tightness and pain at IT Bands and quads. Sometimes sciatic pain down both legs. Neck is not bother her today. Prior Treatments and Tests X-rays (02/18/23): L shoulder - mod OA, Neck - DDD throughout spine with suggestion of bilateral foraminal stenosis at C4-5 through C6-7 levels. Lumbar Spine - DDD throughout spine, 8 mm anterolisthesis of L4 on L5. Future Testing and Treatments Planned Dr. Martinez appt 07/22/23 for GI dysfunction. Treatment Goals Patient/Caregiver Goals Pt goal:1) Sleep 4-5 hrs at night before getting up to use BR, and return to sleep for another couple of hours. 2) Improve ROM to take off T- Shirt blouse from an overhead or partial overhead postion and put in hair clips without noticing the shoulders discomfot and be able to lift L arm to put on deodorant with ease. Pt goals for LB/LE's: to address/create after shoulder rehab. Prior Functional Status Baseline Function- Other 5 hrs of sleep a night Current Functional Impairments (Reported) Functional Limitations- Other Interrupted sleeping every 2-3 hrs. Sleeps for a total of 7 hrs if able to sit up in a recliner to reduce shoulder pain, then can fall back asleep or sleeps in the recliner chair, nightly. Personal Factors Other Personal Factors That May Effect Chronic pain, Arthritis, Therapy/Recovery Diabetes type II. PT-OP-C Subjective Start: 07/02/23 16:35 Freq: Status: Active Protocol: Document 12/17/23 14:33 SP (Rec: 12/17/23 15:38 SP [id number]) OP-PT Subjective Patient Comments Patient Comments Pt stated is walking 30-45 min before needing to sit for rest to meet her goal. Is compliant with HEP and use of HOs to complete through day. PT-OP-H Neuro Start: 07/02/23 16:35 Freq: Status: Active Protocol: Document 07/19/23 11:23 LRN (Rec: 07/19/23 17:28 LRN [id number]) Sensation Evaluation Comments Summary Comments Gross sensation in UE's assessed and found to be WNL. PT-OP-J Posture/Palpation/Skin Start: 07/02/23 16:35 Freq: Status: Active Protocol: Document 07/19/23 11:23 LRN (Rec: 07/19/23 17:28 LRN [id number]) Posture Evaluation Position Standing Head/C-Spine Posture Forward Head T-Spine Posture Increased Kyphosis L-Spine Posture Increased Lordosis Shoulder Posture (L) Rounded,(R) Rounded,(L) Forward,(R) Forward,(L) Elevated Scapula Posture (L) Elevated Pelvis Posture (R) PSIS Posterior Comments Posture Comments C-Curve of lower thoracic & lumbar spine with apex on the left. Iliac Crest height is level. Palpation Assessment Location Hips Palpation Location Bilateral Greater Trochanters & IT Bands Palpation Findings Tenderness Low Back Palpation Location PSIS's, QL at Iliac Crest, Lateral Sacral borders Palpation Findings Soft Tissue Tightness, Tenderness Thoracic region Palpation Location Upper T/S paraspinals & chest at lower sternum Palpation Findings Soft Tissue Tightness, Tenderness Neck Palpation Location L>R UT, L Paraspinals Palpation Findings Soft Tissue Tightness, Tenderness Shoulders Palpation Location Around shoulder joints Palpation Findings Tenderness PT-OP-K Range of Motion Start: 07/02/23 16:35 Freq: Status: Active Protocol: Document 11/28/23 11:22 LRN (Rec: 11/28/23 12:18 LRN [id number]) Hip Goniometric Range of Motion Hip Right Passive Testing Position Supine Straight Leg Raise 60 Left Passive Testing Position Supine Straight Leg Raise 60 PT-OP-L Special Tests Start: 07/02/23 16:35 Freq: Status: Active Protocol: Document 07/22/23 14:17 LRN (Rec: 07/22/23 16:19 LRN [id number]) Special Tests Cervical Spine Special Tests Upper Limb Tension Test Test Results + bilaterally with R worse than L. Comments RUE very limited in mobility, LUE mostly limited with radial nerve glide. PT-OP-M Strength Start: 07/02/23 16:35 Freq: Status: Active Protocol: Document 12/03/23 13:46 LRN (Rec: 12/03/23 14:34 LRN [id number]) Hip Strength Hip Manual Muscle Testing Right Comments Strength 5/5 Left Comments Strength 5/5 PT-OP-Q Treatments Start: 07/02/23 16:35 Freq: Status: Active Protocol: Document 12/17/23 14:33 SP (Rec: 12/17/23 15:38 SP [id number]) Therapeutic Exercises Supine Exercises Piriformis stretch Supine Exercise Name Knee to opp shdr then toward R hip Side left Reps/Minutes 2x 60 sec Comments good set up Fig 4 stretch Supine Exercise Name FIg 4 stretch Side right Reps/Minutes 2x 60 sec Comments improved self set up and talk through form, cue reminder hold time Posture press Supine Exercise Name Hooklie, arms ER'd @ 45 deg's AB, arch upper back-hold 3 breaths Reps/Minutes 10 SH x10 reps Comments Cue x1 set up knees bent, PPT& TA, UE press long axis table, HADD<> HABD Supine Exercise Name Shoulder HABD, HADD cross body stretch post FF Side bilateral Resistance 2# DB Equipment Used knees bent Reps/Minutes 10 x 2 reps Comments reports feels muscle tension tiring, no pain Shoulder Flex Supine Exercise Name Active Shoulder flex stretch hold Side bilateral Resistance pillow under head Equipment Used 2# DB Reps/Minutes 10 rep x 2 SH Comments Pt moving appropriately slow. Scapular Protraction Supine Exercise Name Scapular protraction Side bilateral Equipment Used 2#>5# DB Reps/Minutes 10x 2 Comments Cuing slow eccentric return Standing Exercises Shld IR, ER Standing Exercise Name trialed in PT Side bilateral Resistance Tb #3 Equipment Used towel roll under arm Reps/Minutes x10 each Comments cues for elbow 90deg shoulder adduction Standing Exercise Name HEP reviewed- Side bilateral Resistance cahto green TB #3 Equipment Used anchored over door Reps/Minutes 2x10 Comments cued painfree range, good resistance shoulder extension Standing Exercise Name HEP reviewed- discussed keep doing HEP Side bilateral Resistance [place] green TB #3 Equipment Used anchored waist height Reps/Minutes 2x10 Comments cued range tolerant, limit scapular snap feeling (is not painful/just aware PT-OP-T Assessment and Plan Start: 07/02/23 16:35 Freq: Status: Active Protocol: Document 12/17/23 14:33 SP (Rec: 12/17/23 15:38 SP [id number]) Physical Therapy Assessment Goals Five Impairment LE (Greater trochanter, hamstring, quad, knee) pain Impairment Thigh pain 4-5/10 with occasional 8-9 shooting pain. LEFS is 44 with one question unanswered (40-59% impaired with score 32-47). 10/01/23: LBP rated 4/10, sometimes pain down leg; Thigh pain rated 2-3/10 with no shooting pain. LEFS score 49 (20-39% impaired, score 48-62 ). Short Term Goal (STG) Pt consistent with HEP & Ex workout of LE ex's total of 2- 3x/week and UE ex's 2-3x/wk to reduce LBP or thigh pain. 11/05/23: After recent COVID, doing UE ex's daily at night. Added R hip ER & L hip IR stretch. 12/03/23: 2x/wk doing leg ex' s, 2-3x/wk with arm ex's. STG Duration 8 weeks (11/29/23) progressed 12/03/23. Television Producer Goal (LTG) Improve function per LEFS score of 59 or greater. 12/03/23: LEFS score is 37. LTG Duration 12 weeks (12/24/23) Worse 04/20 One Impairment Pt lacks appropriate shoulder/ thoracic spine HEP. Short Term Goal (STG) Pt will be able to put on underarm deodorant with ease. 09/05/23: Can now hold arms overhead to put underarm deodorant. STG Duration 09/17/23 (7 weeks) (: MET GOAL) Television Producer Goal (LTG) Pt will be independent in a self care HEP of shoulder/ thoracic/back/hip/knee ROM and strengthening ex's. 07/22/23: Shldr HEP: Codman's, AROM: ER, Flex, protraction; Resisted lan scapular stab: Shdr Ext & ADD. 08/06/23: HEP: Shoulder AROM : supine windshield wipe & flex; sup & standing scap pinches. 09/03/23: added side abd, open book, ER 1# DB. 11/28/23: I/S adding 1# wgt for HABD-HADD, alt arm lifts and scap protraction. 12/17/23: progressed: added resisted shld ext, adduction and IR/ER TB #3. LTG Duration 12 weeks (12/24/23) progressed 12/17/22 Four Impairment LB pain rated 4/10 Impairment Walks 15' before LB starts to feel uncomfortable. Television Producer Goal (LTG) Pt able to do a 30' on flat trail walk before back starts to feel uncomfortable. 10/01/23: LB tightens after walking a short distance. 11/05/23: Across Iliac Crest tightness after walking 15'. Pt is walking 30' with sometimes resting at 15'. 11/28/23: Walking 20' without having to sit down due to low level of pain from tightness/ discomfort. 12/03/23: Walking 20-30' not consistently before needing to sit, and can walk up to 15' before the LB starts to tighten and cause discomfort w /o having to sit down. 12/17/23: GOAL MET walking about 30-45 min without needing to sit, without increase LBP preventing. LTG Duration 12 weeks (12/24/23) GOAL MET 12/17/23 Progress Towards Goals Progress Towards Goals Progressing Toward Goals Progress Comments MET GOAL #4 Assessment Summary Assessment Pt was able to tolerate increase resistance with shoulder exercises today, min/ mod cues for slower pacing and proper form 90 degress elbow. Physical Therapy Plan Frequency and Duration Frequency of Treatment 2x/Week Duration of treatment (weeks) 12 Plan of Care Start Date 10/01/23 Plan of Care End Date 12/24/23 Therapeutic Interventions Therapeutic Interventions Home Exercise Program,Joint Mobilizations,Manual Therapy, Neuromuscular Re-education, Patient/Caregiver Education, Self-Care/Home Management,Soft Tissue Mobilization, Therapeutic Activities, Therapeutic Exercises Modalities Cold Pack/Ice Massage,Electric Stimulation,Hot Packs, Iontophoresis,Ultrasound Other Therapeutic Interventions 4 mg/mL Dexamethasone with Sodium Phosphate. Next Visit Focus/Plan Next Note Type Treatment Note Next Visit Plan (Note: Min addition of home ex's due to pt's difficulty in doing home ex's). Assess response to progressed postural & resisted standing shld ex TB #3 last tx. Next: Assess neck soft tissue (palp). Next: Add Gentle neural glides. Educate pt in proper posturing and body mechanics for ADLS w /RC protection in mind, and self care pain mgmt techniques . POC Shoulders: L shoulder RC rehab, R shoulder arthritis pain rehab; POC LB/Hip therapy: Sciatic pain rehab including ROM, core stabilization, LE strengthening,
--- NOTE | 2023-12-24 17:37 | PT.OTN ---
Current Diagnoses Pain in right shoulder (12/24/23) Pain in left shoulder (12/24/23) Other kyphosis, thoracic region (12/24/23) Postural lordosis, thoracolumbar region (12/24/23) Postural lordosis, lumbosacral region (12/24/23) Cervicalgia (12/24/23) Muscle weakness (generalized) (12/24/23) Pain in right arm (12/24/23) Pain in left arm (12/24/23) Pain in right leg (12/24/23) Pain in left leg (12/24/23) Physical Therapy Treatment Note PT-OP-A Visit Information Start: 07/02/23 16:35 Freq: Status: Active Protocol: Document 12/24/23 09:53 LRN (Rec: 12/24/23 10:35 LRN [id number]) Out-Patient Physical Therapy Visit Information Visit Information Visit Type Progress Note Visit Start Time 09:53 Visit Stop Time 10:31 Visit Number 17 Evaluation Information Evaluation Date 07/19/23 Precautions Precautions Arthritis, back pain Diabete's type II, Hypothyroidism, L broken ankle and tibia 2003. PT-OP-B Current Condition Start: 07/02/23 16:35 Freq: Status: Active Protocol: Document 07/19/23 11:23 LRN (Rec: 07/19/23 17:28 LRN [id number]) Current Condition History of Current Condition Onset Date ~05/03/23 Current Complaints Lan shoulder pain is interrupting sleep. Pain across LB, hip, thighs. History of Current Condition States her main focus is her Lan Shoulder pain (L stiffer than R). In last 2 months started to wake her up during the night (can sleep 5 hrs with rub cream). Had good mobility until April (went to [place] in March). She reports decreased shoulder ROM because difficulty putting on /off Tshirt and tucking shirt in the back into pants. Less bothersome, but present is pain across the Iliac crests with tightness and pain at IT Bands and quads. Sometimes sciatic pain down both legs. Neck is not bother her today. Prior Treatments and Tests X-rays (02/18/23): L shoulder - mod OA, Neck - DDD throughout spine with suggestion of bilateral foraminal stenosis at C4-5 through C6-7 levels. Lumbar Spine - DDD throughout spine, 8 mm anterolisthesis of L4 on L5. Future Testing and Treatments Planned Dr. Martinez appt 07/22/23 for GI dysfunction. Treatment Goals Patient/Caregiver Goals Pt goal:1) Sleep 4-5 hrs at night before getting up to use BR, and return to sleep for another couple of hours. 2) Improve ROM to take off T- Shirt blouse from an overhead or partial overhead postion and put in hair clips without noticing the shoulders discomfot and be able to lift L arm to put on deodorant with ease. Pt goals for LB/LE's: to address/create after shoulder rehab. Prior Functional Status Baseline Function- Other 5 hrs of sleep a night Current Functional Impairments (Reported) Functional Limitations- Other Interrupted sleeping every 2-3 hrs. Sleeps for a total of 7 hrs if able to sit up in a recliner to reduce shoulder pain, then can fall back asleep or sleeps in the recliner chair, nightly. Personal Factors Other Personal Factors That May Effect Chronic pain, Arthritis, Therapy/Recovery Diabetes type II. PT-OP-C Subjective Start: 07/02/23 16:35 Freq: Status: Active Protocol: Document 12/24/23 09:53 LRN (Rec: 12/24/23 10:35 LRN [id number]) OP-PT Subjective Patient Comments Patient Comments States she has back pain with walking but can walk 30' with rest stops. Would like to be able to do more without the back pain and work on her stomach to keep it from bulging when lifting her head, concerned of her hernia. Patient Questionnaires Lower Extremity Functional Scale LEFS Score 35 LEFS Impairment 40 to 59% Impaired (Score 32- 47) PT-OP-H Neuro Start: 07/02/23 16:35 Freq: Status: Active Protocol: Document 07/19/23 11:23 LRN (Rec: 07/19/23 17:28 LRN [id number]) Sensation Evaluation Comments Summary Comments Gross sensation in UE's assessed and found to be WNL. PT-OP-J Posture/Palpation/Skin Start: 07/02/23 16:35 Freq: Status: Active Protocol: Document 07/19/23 11:23 LRN (Rec: 07/19/23 17:28 LRN [id number]) Posture Evaluation Position Standing Head/C-Spine Posture Forward Head T-Spine Posture Increased Kyphosis L-Spine Posture Increased Lordosis Shoulder Posture (L) Rounded,(R) Rounded,(L) Forward,(R) Forward,(L) Elevated Scapula Posture (L) Elevated Pelvis Posture (R) PSIS Posterior Comments Posture Comments C-Curve of lower thoracic & lumbar spine with apex on the left. Iliac Crest height is level. Palpation Assessment Location Hips Palpation Location Bilateral Greater Trochanters & IT Bands Palpation Findings Tenderness Low Back Palpation Location PSIS's, QL at Iliac Crest, Lateral Sacral borders Palpation Findings Soft Tissue Tightness, Tenderness Thoracic region Palpation Location Upper T/S paraspinals & chest at lower sternum Palpation Findings Soft Tissue Tightness, Tenderness Neck Palpation Location L>R UT, L Paraspinals Palpation Findings Soft Tissue Tightness, Tenderness Shoulders Palpation Location Around shoulder joints Palpation Findings Tenderness PT-OP-K Range of Motion Start: 07/02/23 16:35 Freq: Status: Active Protocol: Document 12/24/23 09:53 LRN (Rec: 12/24/23 10:35 LRN [id number]) Hip Goniometric Range of Motion Hip Right Passive Testing Position Supine Straight Leg Raise 62 Internal Rotation 20 External Rotation 60 Left Passive Testing Position Supine Straight Leg Raise 65 Internal Rotation 20 External Rotation 60 PT-OP-L Special Tests Start: 07/02/23 16:35 Freq: Status: Active Protocol: Document 07/22/23 14:17 LRN (Rec: 07/22/23 16:19 LRN [id number]) Special Tests Cervical Spine Special Tests Upper Limb Tension Test Test Results + bilaterally with R worse than L. Comments RUE very limited in mobility, LUE mostly limited with radial nerve glide. PT-OP-M Strength Start: 07/02/23 16:35 Freq: Status: Active Protocol: Document 12/03/23 13:46 LRN (Rec: 12/03/23 14:34 LRN [id number]) Hip Strength Hip Manual Muscle Testing Right Comments Strength 5/5 Left Comments Strength 5/5 PT-OP-Q Treatments Start: 07/02/23 16:35 Freq: Status: Active Protocol: Document 12/24/23 09:53 LRN (Rec: 12/24/23 10:35 LRN [id number]) Therapeutic Exercises Supine Exercises HS/LE neural stretch Supine Exercise Name HS/LE neural stretch Side bilateral Reps/Minutes 3' Comments PT held PSLR stretch. ROM taken Piriformis stretch Supine Exercise Name Knee to opp shdr then toward R hip Side left Reps/Minutes 2x 60 sec Comments good set up, hip IR ROM taken Fig 4 stretch Supine Exercise Name FIg 4 stretch Side right Reps/Minutes 2x 60 sec Comments improved self set up & talk through form, cue reminder hold time. ROM took Posture press Supine Exercise Name Hooklie, TA/arms ER'd @ 45 deg 's AB, arch upper back-hold 3 breaths Reps/Minutes 10 SH x10 reps Comments Cue x1 set up knees bent, PPT& TA, UE press long axis table, Shoulder Flex Supine Exercise Name Active Shoulder flex stretch hold Side bilateral Resistance pillow under head Reps/Minutes 10 rep x 2 SH Comments Pt moving appropriately slow. Scapular Protraction Supine Exercise Name Scapular protraction Side bilateral Equipment Used 2#>5# DB Reps/Minutes 10x Comments Cuing slow eccentric return PT-OP-T Assessment and Plan Start: 07/02/23 16:35 Freq: Status: Active Protocol: Document 12/24/23 09:53 LRN (Rec: 12/24/23 10:35 LRN [id number]) Physical Therapy Assessment Rehab Potential Rehabilitation Potential Good Evaluation Complexity Number of Personal Factors/Comorbidities 3 or More Number of Body Systems Impaired 4 or More Clinical Presentation at Evaluation Evolving Impairments Impairments Activity Tolerance,Functional Activities,Pain,Posture,ROM, Soft Tissue Mobility,Strength Goals Six Impairment Poor core stability hindering progress to decr LBP Impairment Pt not able to maintain abdominal contraction with exercise and head lift. Short Term Goal (STG) Pt will be able to maintain abdominal bracing with head lift. STG Duration 4 wks-01/21/24 Skilled Nursing Goal (LTG) Pt will be able to maintain abdominal bracing with core & LE exercises. LTG Duration 8 wks-02/18/24 Five Impairment LE (Greater trochanter, hamstring, quad, knee) pain Impairment Thigh pain 4-5/10 with occasional 8-9 shooting pain. LEFS is 44 with one question unanswered (40-59% impaired with score 32-47). 10/01/23: LBP rated 4/10, sometimes pain down leg; Thigh pain rated 2-3/10 with no shooting pain. LEFS score 49 (20-39% impaired, score 48-62 ). Short Term Goal (STG) Pt consistent with HEP & Ex workout of LE ex's total of 2- 3x/week and UE ex's 2-3x/wk to reduce LBP or thigh pain. 11/05/23: After recent COVID, doing UE ex's daily at night. Added R hip ER & L hip IR stretch. 12/03/23: 2x/wk doing leg ex' s, 2-3x/wk with arm ex's. 12/24/23: combined 2x/wk leg and arm ex's. Walking 30-35', not consistent amt/wk. STG Duration 8 weeks (11/29/23) (12/24/23 : MET GOAL) Skilled Nursing Goal (LTG) Improve function per LEFS score of 59 or greater. 12/03/23: LEFS score is 37. 12/24/23: LEFS score is 35 ( 40-59% impaired, score 32-47) LTG Duration 8 wks-02/18/24 Worse 12/24/23 Three Impairment Decreased bilateral shoulder mobility Short Term Goal (STG) Improve ROM to put in hair clips without noticing shoulder discomfort. 08/20/23: progressing: pt demonstrates a ble to reach over head to opposite LUE not and reach up in to cupboard with less pain. 08/27/23: notes tightness but not as much pain after manual, HEP review. Discussed continue home. 09/03/23: GOAL MET: able to put in hair clips self. 09/06/23: Stretch felt posteroinferior to brachium putting clip in hair. 10/01/23: Can put hair clips but feels strain in underside of L arm. STG Duration 08/18/23 (11/28/23: MET GOAL) Skilled Nursing Goal (LTG) Improve ROM to remove T-Shirt blouse with an overhead or partially overhead motion. 09/03/23: pt is able to reachover top of her head to touch opposite side now. 09/06/23: Pt feels she is 30% better. 10/01/23: Pt feels she may be up to 40% better. 11/05/23: Since Covid, decline ability to 30-35% better. 11/28/23: Pt demonstrates ability to remove loose T- shirt and can reach to opp side of head. LTG Duration 8 wks (11/29/23) (11/28/23: MET GOAL) One Impairment Pt lacks appropriate shoulder/ thoracic spine HEP. Short Term Goal (STG) Pt will be able to put on underarm deodorant with ease. 09/05/23: Can now hold arms overhead to put underarm deodorant. STG Duration 09/17/23 (7 weeks) (: MET GOAL) Echocardiography Radiology Technologist Goal (LTG) Pt will be independent in a self care HEP of shoulder/ thoracic/back/hip/knee ROM and strengthening ex's. 07/22/23: Shldr HEP: Codman's, AROM: ER, Flex, protraction; Resisted lan scapular stab: Shdr Ext & ADD. 08/06/23: HEP: Shoulder AROM : supine windshield wipe & flex; sup & standing scap pinches. 09/03/23: added side abd, open book, ER 1# DB. 11/28/23: I/S adding 1# wgt for HABD-HADD, alt arm lifts and scap protraction. 12/17/23: progressed: added resisted shld ext, adduction and IR/ER TB #3. LTG Duration 8 more wks-02/18/24 progressed 12/17/22 (need thoracic/back/hip/knee ex's) Four Impairment LB pain rated 4/10 Impairment Walks 15' before LB starts to feel uncomfortable. Echocardiography Radiology Technologist Goal (LTG) Pt able to do a 30' on flat trail walk before back starts to feel uncomfortable. 10/01/23: LB tightens after walking a short distance. 11/05/23: Across Iliac Crest tightness after walking 15'. Pt is walking 30' with sometimes resting at 15'. 11/28/23: Walking 20' without having to sit down due to low level of pain from tightness/ discomfort. 12/03/23: Walking 20-30' not consistently before needing to sit, and can walk up to 15' before the LB starts to tighten and cause discomfort w /o having to sit down. 12/17/23: GOAL MET walking about 30-45 min without needing to sit, without increase LBP preventing. LTG Duration 12 weeks (12/24/23) (: MET GOAL) Two Impairment Decreased shoulder stability and strength limiting function Impairment Pt limited in ability to lift L arm to put on underarm deodorant with ease. Pt limited in ability to sleep at night. Pt wakes after 2-3 hours of sleep and usually gets up to lay on recliner chair for another couple of hours of sleep. Short Term Goal (STG) Pt will be educated in best nighttime sleeping positions. 07/22/23: Pt educated in best nighttime sleep positions in sidelie & supine, using pillows to support her UE's and back. 08/02/23: time spent use pillow / towel support for side sleeping, see self care details. 07/30/23: last 2 nights slept 4 hrs and no meds assist. STG Duration 08/02/23 (2 weeks) (07/22/23: MET GOAL) Skilled Nursing Goal (LTG) Pt will be able to sleep 4-5 hrs at night before getting up to use BR, and return to sleep without having to sleep in recliner chair. 08/02/23: time spent use pillow / towel support for side sleeping, see self care details. 08/27/23: progressing able to sleep for 4 hrs on air mattress before wakes up, did go to reclined remaining 2 hrs sleep, no meds assist for pain needed. 09/06/23: Sleeping up to 3 hrs and once almost 4 hrs. 11/05/23: Sleeping in bed waking after 2-4 hrs, before going back to sleep with use of Tramadol. 11/28/23: Sleeping 4-6 interrupted hours (not interrupted due to pain), and can get back to sleep in bed without a problem. LTG Duration 12 weeks (12/24/23) (: MET GOAL) Assessment Summary Assessment Pt is a 73 yo female who initially presented with complaints of pain in most areas of her body, and was most interested in decreasing shoulder pain to improve sleep . She has been able to improve her sleep to greater than 2 hrs at a time, most often 3-4 hrs and sometimes 5 hrs. She has met her UE goals and is now ready to change focus of her rehab to LBP/lan hip pain & LE weakness . We have recently been working on improving core/LE strength and mobility to improve tolerance to ex and walking. Her hip mobility has improved symmetry but is limited in hip ER and hamstring length that is hindering her progress towards decreased LBP. The pt has a long history of pain and with her progressing age, would benefit from 8 more weeks of therapy to progress her core/ hip/LE strengthening and hip flexibility (ER/hamstring), to meet her above stated goals. Physical Therapy Plan Frequency and Duration Frequency of Treatment 1x/Week Duration of treatment (weeks) 8 Plan of Care Start Date 12/24/23 Plan of Care End Date 02/18/24 Therapeutic Interventions Therapeutic Interventions Home Exercise Program,Joint Mobilizations,Manual Therapy, Neuromuscular Re-education, Patient/Caregiver Education, Self-Care/Home Management,Soft Tissue Mobilization, Therapeutic Activities, Therapeutic Exercises Modalities Cold Pack/Ice Massage,Electric Stimulation,Hot Packs, Iontophoresis,Ultrasound Other Therapeutic Interventions 4 mg/mL Dexamethasone with Sodium Phosphate. Next Visit Focus/Plan Next Note Type Treatment Note Next Visit Plan (Note: Min addition of home ex's due to pt's difficulty in doing home ex's). Pt to be seen every 1-4 weeks with focus on HEP. Assess response to progressed postural & resisted standing shld ex TB #3 last tx. Next: Assess neck soft tissue (palp). Next: Add Gentle neural glides. Educate pt in proper posturing and body mechanics for ADLS w /RC protection in mind, and self care pain mgmt techniques . POC Shoulders: Monitor: L shoulder RC pain, R shoulder arthritis pain; POC LB/Hip therapy: core stabilization, Sciatic pain rehab including ROM, LE strengthening.
--- NOTE | 2024-01-02 17:36 | PT.OTN ---
Current Diagnoses Pain in right shoulder (01/02/24) Pain in left shoulder (01/02/24) Other kyphosis, thoracic region (01/02/24) Postural lordosis, thoracolumbar region (01/02/24) Postural lordosis, lumbosacral region (01/02/24) Cervicalgia (01/02/24) Muscle weakness (generalized) (01/02/24) Pain in right arm (01/02/24) Pain in left arm (01/02/24) Pain in right leg (01/02/24) Pain in left leg (01/02/24) Physical Therapy Treatment Note PT-OP-A Visit Information Start: 07/02/23 16:35 Freq: Status: Active Protocol: Document 01/02/24 08:18 LRN (Rec: 01/02/24 09:01 LRN [id number]) Out-Patient Physical Therapy Visit Information Visit Information Visit Type Treatment Note Visit Start Time 08:18 Visit Stop Time 09:00 Visit Number 18 Evaluation Information Evaluation Date 07/19/23 Precautions Precautions Arthritis, back pain Diabete's type II, Hypothyroidism, L broken ankle and tibia 2003. PT-OP-B Current Condition Start: 07/02/23 16:35 Freq: Status: Active Protocol: Document 07/19/23 11:23 LRN (Rec: 07/19/23 17:28 LRN [id number]) Current Condition History of Current Condition Onset Date ~05/03/23 Current Complaints Lan shoulder pain is interrupting sleep. Pain across LB, hip, thighs. History of Current Condition States her main focus is her Lan Shoulder pain (L stiffer than R). In last 2 months started to wake her up during the night (can sleep 5 hrs with rub cream). Had good mobility until April (went to [place] in March). She reports decreased shoulder ROM because difficulty putting on /off Tshirt and tucking shirt in the back into pants. Less bothersome, but present is pain across the Iliac crests with tightness and pain at IT Bands and quads. Sometimes sciatic pain down both legs. Neck is not bother her today. Prior Treatments and Tests X-rays (02/18/23): L shoulder - mod OA, Neck - DDD throughout spine with suggestion of bilateral foraminal stenosis at C4-5 through C6-7 levels. Lumbar Spine - DDD throughout spine, 8 mm anterolisthesis of L4 on L5. Future Testing and Treatments Planned Dr. Martinez appt 07/22/23 for GI dysfunction. Treatment Goals Patient/Caregiver Goals Pt goal:1) Sleep 4-5 hrs at night before getting up to use BR, and return to sleep for another couple of hours. 2) Improve ROM to take off T- Shirt blouse from an overhead or partial overhead postion and put in hair clips without noticing the shoulders discomfot and be able to lift L arm to put on deodorant with ease. Pt goals for LB/LE's: to address/create after shoulder rehab. Prior Functional Status Baseline Function- Other 5 hrs of sleep a night Current Functional Impairments (Reported) Functional Limitations- Other Interrupted sleeping every 2-3 hrs. Sleeps for a total of 7 hrs if able to sit up in a recliner to reduce shoulder pain, then can fall back asleep or sleeps in the recliner chair, nightly. Personal Factors Other Personal Factors That May Effect Chronic pain, Arthritis, Therapy/Recovery Diabetes type II. PT-OP-C Subjective Start: 07/02/23 16:35 Freq: Status: Active Protocol: Document 01/02/24 08:18 LRN (Rec: 01/02/24 09:01 LRN [id number]) OP-PT Subjective Patient Comments Patient Comments Doing well. PT-OP-H Neuro Start: 07/02/23 16:35 Freq: Status: Active Protocol: Document 07/19/23 11:23 LRN (Rec: 07/19/23 17:28 LRN [id number]) Sensation Evaluation Comments Summary Comments Gross sensation in UE's assessed and found to be WNL. PT-OP-J Posture/Palpation/Skin Start: 07/02/23 16:35 Freq: Status: Active Protocol: Document 07/19/23 11:23 LRN (Rec: 07/19/23 17:28 LRN [id number]) Posture Evaluation Position Standing Head/C-Spine Posture Forward Head T-Spine Posture Increased Kyphosis L-Spine Posture Increased Lordosis Shoulder Posture (L) Rounded,(R) Rounded,(L) Forward,(R) Forward,(L) Elevated Scapula Posture (L) Elevated Pelvis Posture (R) PSIS Posterior Comments Posture Comments C-Curve of lower thoracic & lumbar spine with apex on the left. Iliac Crest height is level. Palpation Assessment Location Hips Palpation Location Bilateral Greater Trochanters & IT Bands Palpation Findings Tenderness Low Back Palpation Location PSIS's, QL at Iliac Crest, Lateral Sacral borders Palpation Findings Soft Tissue Tightness, Tenderness Thoracic region Palpation Location Upper T/S paraspinals & chest at lower sternum Palpation Findings Soft Tissue Tightness, Tenderness Neck Palpation Location L>R UT, L Paraspinals Palpation Findings Soft Tissue Tightness, Tenderness Shoulders Palpation Location Around shoulder joints Palpation Findings Tenderness PT-OP-K Range of Motion Start: 07/02/23 16:35 Freq: Status: Active Protocol: Document 12/24/23 09:53 LRN (Rec: 12/24/23 10:35 LRN [id number]) Hip Goniometric Range of Motion Hip Right Passive Testing Position Supine Straight Leg Raise 62 Internal Rotation 20 External Rotation 60 Left Passive Testing Position Supine Straight Leg Raise 65 Internal Rotation 20 External Rotation 60 PT-OP-L Special Tests Start: 07/02/23 16:35 Freq: Status: Active Protocol: Document 07/22/23 14:17 LRN (Rec: 07/22/23 16:19 LRN [id number]) Special Tests Cervical Spine Special Tests Upper Limb Tension Test Test Results + bilaterally with R worse than L. Comments RUE very limited in mobility, LUE mostly limited with radial nerve glide. PT-OP-M Strength Start: 07/02/23 16:35 Freq: Status: Active Protocol: Document 12/03/23 13:46 LRN (Rec: 12/03/23 14:34 LRN [id number]) Hip Strength Hip Manual Muscle Testing Right Comments Strength 5/5 Left Comments Strength 5/5 PT-OP-Q Treatments Start: 07/02/23 16:35 Freq: Status: Active Protocol: Document 01/02/24 08:18 LRN (Rec: 01/02/24 09:01 LRN [id number]) Therapeutic Exercises Supine Exercises Neck Elongation Supine Exercise Name Neck Elongation (cuing of pt to not move head around) Reps/Minutes 10 SH x 10, over 10' time Comments Much extra time needed to get pt to elongate neck, cuing at head & v cuing Standing Exercises Shld IR, ER Standing Exercise Name trialed in PT Side bilateral Resistance Tb #3 Equipment Used towel roll under arm Reps/Minutes x20 each Comments cues for elbow 90deg scap retraction Standing Exercise Name HEP reviewd Reps/Minutes 10 x10 Comments good form, painfree shoulder extension Standing Exercise Name HEP reviewed- discussed keep doing HEP Side bilateral Resistance [place] TB #3 Equipment Used anchored waist height Reps/Minutes 3x10 Comments cued scap depression/retract & core in NS. Manual Therapy Treatment Manual Traction Gentle Cervical traction Details Gentle C. traction with neck at 30 deg's flexed Body Position Supine Reps/Duration 3' mid treatment, 2' end of treatment. Comments Helps to reduce L lateral arm pain and L UT pain with palpation. Neuro Re-Education Treatment Balance Activities Postural training for balance Details Balancing through feet with proper standing posture Surface Flat Equipment Wall Reps/Duration 9' Comments Much Phys & v cuing. Self-Care/Home Management Treatment Education Other Education Educated pt in proper sit/ stand posture with picture and drawing. Activities Self-Care/Home Management Activities Issued handout for proper sitting and standing posture. PT-OP-T Assessment and Plan Start: 07/02/23 16:35 Freq: Status: Active Protocol: Document 01/02/24 08:18 LRN (Rec: 01/02/24 09:01 LRN [id number]) Physical Therapy Assessment Goals Six Impairment Poor core stability hindering progress to decr LBP Impairment Pt not able to maintain abdominal contraction with exercise and head lift. Short Term Goal (STG) Pt will be able to maintain abdominal bracing with head lift. STG Duration 4 wks-01/21/24 Long-Term Goal (LTG) Pt will be able to maintain abdominal bracing with core & LE exercises. LTG Duration 8 wks-02/18/24 Five Impairment LE (Greater trochanter, hamstring, quad, knee) pain Impairment Thigh pain 4-5/10 with occasional 8-9 shooting pain. LEFS is 44 with one question unanswered (40-59% impaired with score 32-47). 10/01/23: LBP rated 4/10, sometimes pain down leg; Thigh pain rated 2-3/10 with no shooting pain. LEFS score 49 (20-39% impaired, score 48-62 ). Short Term Goal (STG) Pt consistent with HEP & Ex workout of LE ex's total of 2- 3x/week and UE ex's 2-3x/wk to reduce LBP or thigh pain. 11/05/23: After recent COVID, doing UE ex's daily at night. Added R hip ER & L hip IR stretch. 12/03/23: 2x/wk doing leg ex' s, 2-3x/wk with arm ex's. 12/24/23: combined 2x/wk leg and arm ex's. Walking 30-35', not consistent amt/wk. STG Duration 8 weeks (11/29/23) (12/24/23 : MET GOAL) Long-Term Goal (LTG) Improve function per LEFS score of 59 or greater. 12/03/23: LEFS score is 37. 12/24/23: LEFS score is 35 ( 40-59% impaired, score 32-47) LTG Duration 8 wks-02/18/24 Worse 12/24/23 Three Impairment Decreased bilateral shoulder mobility Short Term Goal (STG) Improve ROM to put in hair clips without noticing shoulder discomfort. 08/20/23: progressing: pt demonstrates a ble to reach over head to opposite LUE not and reach up in to cupboard with less pain. 08/27/23: notes tightness but not as much pain after manual, HEP review. Discussed continue home. 09/03/23: GOAL MET: able to put in hair clips self. 09/06/23: Stretch felt posteroinferior to brachium putting clip in hair. 10/01/23: Can put hair clips but feels strain in underside of L arm. STG Duration 08/18/23 (11/28/23: MET GOAL) Long-Term Goal (LTG) Improve ROM to remove T-Shirt blouse with an overhead or partially overhead motion. 09/03/23: pt is able to reachover top of her head to touch opposite side now. 09/06/23: Pt feels she is 30% better. 10/01/23: Pt feels she may be up to 40% better. 11/05/23: Since Covid, decline ability to 30-35% better. 11/28/23: Pt demonstrates ability to remove loose T- shirt and can reach to opp side of head. LTG Duration 8 wks (11/29/23) (11/28/23: MET GOAL) One Impairment Pt lacks appropriate shoulder/ thoracic spine HEP. Short Term Goal (STG) Pt will be able to put on underarm deodorant with ease. 09/05/23: Can now hold arms overhead to put underarm deodorant. STG Duration 09/17/23 (7 weeks) (: MET GOAL) Hydraulic Press Tender Goal (LTG) Pt will be independent in a self care HEP of shoulder/ thoracic/back/hip/knee ROM and strengthening ex's. 07/22/23: Shldr HEP: Codman's, AROM: ER, Flex, protraction; Resisted lan scapular stab: Shdr Ext & ADD. 08/06/23: HEP: Shoulder AROM : supine windshield wipe & flex; sup & standing scap pinches. 09/03/23: added side abd, open book, ER 1# DB. 11/28/23: I/S adding 1# wgt for HABD-HADD, alt arm lifts and scap protraction. 12/17/23: progressed: added resisted shld ext, adduction and IR/ER TB #3. LTG Duration 8 more wks-02/18/24 progressed 12/17/22 (need thoracic/back/hip/knee ex's) Four Impairment LB pain rated 4/10 Impairment Walks 15' before LB starts to feel uncomfortable. Hydraulic Press Tender Goal (LTG) Pt able to do a 30' on flat trail walk before back starts to feel uncomfortable. 10/01/23: LB tightens after walking a short distance. 11/05/23: Across Iliac Crest tightness after walking 15'. Pt is walking 30' with sometimes resting at 15'. 11/28/23: Walking 20' without having to sit down due to low level of pain from tightness/ discomfort. 12/03/23: Walking 20-30' not consistently before needing to sit, and can walk up to 15' before the LB starts to tighten and cause discomfort w /o having to sit down. 12/17/23: GOAL MET walking about 30-45 min without needing to sit, without increase LBP preventing. LTG Duration 12 weeks (12/24/23) (: MET GOAL) Two Impairment Decreased shoulder stability and strength limiting function Impairment Pt limited in ability to lift L arm to put on underarm deodorant with ease. Pt limited in ability to sleep at night. Pt wakes after 2-3 hours of sleep and usually gets up to lay on recliner chair for another couple of hours of sleep. Short Term Goal (STG) Pt will be educated in best nighttime sleeping positions. 07/22/23: Pt educated in best nighttime sleep positions in sidelie & supine, using pillows to support her UE's and back. 08/02/23: time spent use pillow / towel support for side sleeping, see self care details. 07/30/23: last 2 nights slept 4 hrs and no meds assist. STG Duration 08/02/23 (2 weeks) (07/22/23: MET GOAL) Hydraulic Press Tender Goal (LTG) Pt will be able to sleep 4-5 hrs at night before getting up to use BR, and return to sleep without having to sleep in recliner chair. 08/02/23: time spent use pillow / towel support for side sleeping, see self care details. 08/27/23: progressing able to sleep for 4 hrs on air mattress before wakes up, did go to reclined remaining 2 hrs sleep, no meds assist for pain needed. 09/06/23: Sleeping up to 3 hrs and once almost 4 hrs. 11/05/23: Sleeping in bed waking after 2-4 hrs, before going back to sleep with use of Tramadol. 11/28/23: Sleeping 4-6 interrupted hours (not interrupted due to pain), and can get back to sleep in bed without a problem. LTG Duration 12 weeks (12/24/23) (: MET GOAL) Assessment Summary Assessment 73 yo female who initially presented with complaints of pain in most areas of her body , and was most interested in decreasing shoulder pain to improve sleep. Her pain focus now is on her shoulders/neck. Neck soft tissue is tight on R side and loose on painful side. + Median n. tension test. Fair tolerance to median n stretch, but poor understanding of how to do ex correctly; therefore held issuance of HEP. L UT pain appears neural in nature, decreases after Manual C. tx and neck elongation ex. Pt requires a lot of discussion and explanation throughout the session. Physical Therapy Plan Frequency and Duration Frequency of Treatment 1x/Week Duration of treatment (weeks) 8 Plan of Care Start Date 12/24/23 Plan of Care End Date 02/18/24 Next Visit Focus/Plan Next Note Type Treatment Note Next Visit Plan (Note: Min addition of home ex's due to pt's difficulty in doing home ex's). Pt to be seen every 1-4 weeks with focus on HEP. Next: If pt able to do w/o causing pain, add Gentle median neural glides, assess and add other nerve glides as appropriate. Cont proper posturing and body mechanics for ADLS w/RC protection in mind, and self care pain mgmt techniques. POC Shoulders: Monitor: L shoulder RC pain, R shoulder arthritis pain; POC LB/Hip therapy: core stabilization, Sciatic pain rehab including ROM, LE strengthening.
--- NOTE | 2024-01-17 11:15 | PT.OTN ---
Current Diagnoses Pain in right shoulder (01/17/24) Pain in left shoulder (01/17/24) Other kyphosis, thoracic region (01/17/24) Postural lordosis, thoracolumbar region (01/17/24) Postural lordosis, lumbosacral region (01/17/24) Cervicalgia (01/17/24) Muscle weakness (generalized) (01/17/24) Pain in right arm (01/17/24) Pain in left arm (01/17/24) Pain in right leg (01/17/24) Pain in left leg (01/17/24) Physical Therapy Treatment Note PT-OP-A Visit Information Start: 07/02/23 16:35 Freq: Status: Active Protocol: Document 01/17/24 10:35 SP (Rec: 01/17/24 11:18 SP [id number]) Out-Patient Physical Therapy Visit Information Visit Information Visit Type Treatment Note Visit Start Time 10:35 Visit Stop Time 11:15 Visit Number 19 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 PT-OP-B Current Condition Start: 07/02/23 16:35 Freq: Status: Active Protocol: Document 07/19/23 11:23 LRN (Rec: 07/19/23 17:28 LRN [id number]) Current Condition History of Current Condition Onset Date ~05/03/23 Current Complaints Abby shoulder pain is interrupting sleep. Pain across LB, hip, thighs. History of Current Condition States her main focus is her Abby Shoulder pain (L stiffer than R). In last 2 months started to wake her up during the night (can sleep 5 hrs with rub cream). Had good mobility until April (went to [place] in March). She reports decreased shoulder ROM because difficulty putting on /off Tshirt and tucking shirt in the back into pants. Less bothersome, but present is pain across the Iliac crests with tightness and pain at IT Bands and quads. Sometimes sciatic pain down both legs. Neck is not bother her today. Prior Treatments and Tests X-rays (02/18/23): L shoulder - mod OA, Neck - DDD throughout spine with suggestion of bilateral foraminal stenosis at C4-5 through C6-7 levels. Lumbar Spine - DDD throughout spine, 8 mm anterolisthesis of L4 on L5. Future Testing and Treatments Planned Dr. Martinez appt 07/22/23 for GI dysfunction. Treatment Goals Patient/Caregiver Goals Pt goal:1) Sleep 4-5 hrs at night before getting up to use BR, and return to sleep for another couple of hours. 2) Improve ROM to take off T- Shirt blouse from an overhead or partial overhead postion and put in hair clips without noticing the shoulders discomfot and be able to lift L arm to put on deodorant with ease. Pt goals for LB/LE's: to address/create after shoulder rehab. Prior Functional Status Baseline Function- Other 5 hrs of sleep a night Current Functional Impairments (Reported) Functional Limitations- Other Interrupted sleeping every 2-3 hrs. Sleeps for a total of 7 hrs if able to sit up in a recliner to reduce shoulder pain, then can fall back asleep or sleeps in the recliner chair, nightly. Personal Factors Other Personal Factors That May Effect Chronic pain, Arthritis, Therapy/Recovery Diabetes type II. PT-OP-C Subjective Start: 07/02/23 16:35 Freq: Status: Active Protocol: Document 01/17/24 10:35 SP (Rec: 01/17/24 11:18 SP [id number]) OP-PT Subjective Patient Comments Patient Comments Pt reports doing better, the pressure helped her LUE moved better with exercises. She reported went on a retreat and same not compliant with HEP. PT-OP-H Neuro Start: 07/02/23 16:35 Freq: Status: Active Protocol: Document 07/19/23 11:23 LRN (Rec: 07/19/23 17:28 LRN [id number]) Sensation Evaluation Comments Summary Comments Gross sensation in UE's assessed and found to be WNL. PT-OP-J Posture/Palpation/Skin Start: 07/02/23 16:35 Freq: Status: Active Protocol: Document 07/19/23 11:23 LRN (Rec: 07/19/23 17:28 LRN [id number]) Posture Evaluation Position Standing Head/C-Spine Posture Forward Head T-Spine Posture Increased Kyphosis L-Spine Posture Increased Lordosis Shoulder Posture (L) Rounded,(R) Rounded,(L) Forward,(R) Forward,(L) Elevated Scapula Posture (L) Elevated Pelvis Posture (R) PSIS Posterior Comments Posture Comments C-Curve of lower thoracic & lumbar spine with apex on the left. Iliac Crest height is level. Palpation Assessment Location Hips Palpation Location Bilateral Greater Trochanters & IT Bands Palpation Findings Tenderness Low Back Palpation Location PSIS's, QL at Iliac Crest, Lateral Sacral borders Palpation Findings Soft Tissue Tightness, Tenderness Thoracic region Palpation Location Upper T/S paraspinals & chest at lower sternum Palpation Findings Soft Tissue Tightness, Tenderness Neck Palpation Location L>R UT, L Paraspinals Palpation Findings Soft Tissue Tightness, Tenderness Shoulders Palpation Location Around shoulder joints Palpation Findings Tenderness PT-OP-K Range of Motion Start: 07/02/23 16:35 Freq: Status: Active Protocol: Document 12/24/23 09:53 LRN (Rec: 12/24/23 10:35 LRN [id number]) Hip Goniometric Range of Motion Hip Right Passive Testing Position Supine Straight Leg Raise 62 Internal Rotation 20 External Rotation 60 Left Passive Testing Position Supine Straight Leg Raise 65 Internal Rotation 20 External Rotation 60 PT-OP-L Special Tests Start: 07/02/23 16:35 Freq: Status: Active Protocol: Document 07/22/23 14:17 LRN (Rec: 07/22/23 16:19 LRN [id number]) Special Tests Cervical Spine Special Tests Upper Limb Tension Test Test Results + bilaterally with R worse than L. Comments RUE very limited in mobility, LUE mostly limited with radial nerve glide. PT-OP-M Strength Start: 07/02/23 16:35 Freq: Status: Active Protocol: Document 12/03/23 13:46 LRN (Rec: 12/03/23 14:34 LRN [id number]) Hip Strength Hip Manual Muscle Testing Right Comments Strength 5/5 Left Comments Strength 5/5 PT-OP-Q Treatments Start: 07/02/23 16:35 Freq: Status: Active Protocol: Document 01/17/24 10:35 SP (Rec: 01/17/24 11:18 SP [id number]) Therapeutic Exercises Standing Exercises Shld IR, ER Standing Exercise Name added to PT Side bilateral Resistance Tb #3 Equipment Used towel roll under arm Reps/Minutes x20 each Comments cues for elbow 90deg, trunk still/only arm moving- pnfree upper arm tiring Manual Therapy Treatment Soft Tissue Mobilization CS STMs Body Location CS paraspinals C7 level Mobilization Type Rolling,Sustained Pressure Comments sustained pressure with breath , MWM FF OH shld STMs Body Location B: distal lat, prox tricep, Paula, Mobilization Type Strumming,Sustained Pressure, Other Intensity/Depth Moderate Body Position Hooklying Comments improved ROM w/ manual STMs and MWM AAROM ROM FF, HABD<> HADD Joint Mobilizations CS Joint C7 R rot, T2-4 PA Body Position Supine AC jt Joint B Direction PA Body Position Supine Comments good mobility PT-OP-T Assessment and Plan Start: 07/02/23 16:35 Freq: Status: Active Protocol: Document 01/17/24 10:35 SP (Rec: 01/17/24 11:18 SP [id number]) Physical Therapy Assessment Goals Six Impairment Poor core stability hindering progress to decr LBP Impairment Pt not able to maintain abdominal contraction with exercise and head lift. Short Term Goal (STG) Pt will be able to maintain abdominal bracing with head lift. STG Duration 4 wks-01/21/24 Corporate Librarian Goal (LTG) Pt will be able to maintain abdominal bracing with core & LE exercises. LTG Duration 8 wks-02/18/24 Five Impairment LE (Greater trochanter, hamstring, quad, knee) pain Impairment Thigh pain 4-5/10 with occasional 8-9 shooting pain. LEFS is 44 with one question unanswered (40-59% impaired with score 32-47). 10/01/23: LBP rated 4/10, sometimes pain down leg; Thigh pain rated 2-3/10 with no shooting pain. LEFS score 49 (20-39% impaired, score 48-62 ). Short Term Goal (STG) Pt consistent with HEP & Ex workout of LE ex's total of 2- 3x/week and UE ex's 2-3x/wk to reduce LBP or thigh pain. 11/05/23: After recent COVID, doing UE ex's daily at night. Added R hip ER & L hip IR stretch. 12/03/23: 2x/wk doing leg ex' s, 2-3x/wk with arm ex's. 12/24/23: combined 2x/wk leg and arm ex's. Walking 30-35', not consistent amt/wk. STG Duration 8 weeks (11/29/23) (12/24/23 : MET GOAL) Corporate Librarian Goal (LTG) Improve function per LEFS score of 59 or greater. 12/03/23: LEFS score is 37. 12/24/23: LEFS score is 35 ( 40-59% impaired, score 32-47) LTG Duration 8 wks-02/18/24 Worse 12/24/23 One Impairment Pt lacks appropriate shoulder/ thoracic spine HEP. Short Term Goal (STG) Pt will be able to put on underarm deodorant with ease. 09/05/23: Can now hold arms overhead to put underarm deodorant. STG Duration 09/17/23 (7 weeks) (: MET GOAL) Skilled Nursing Goal (LTG) Pt will be independent in a self care HEP of shoulder/ thoracic/back/hip/knee ROM and strengthening ex's. 07/22/23: Shldr HEP: Codman's, AROM: ER, Flex, protraction; Resisted abby scapular stab: Shdr Ext & ADD. 08/06/23: HEP: Shoulder AROM : supine windshield wipe & flex; sup & standing scap pinches. 09/03/23: added side abd, open book, ER 1# DB. 11/28/23: I/S adding 1# wgt for HABD-HADD, alt arm lifts and scap protraction. 12/17/23: progressed: added resisted shld ext, adduction and IR/ER TB #3. LTG Duration 8 more wks-02/18/24 progressed 12/17/22 (need thoracic/back/hip/knee ex's) Assessment Summary Assessment Pt improved L shld mobiity and head turns post manual. Good muscle tiring with cues for arm alignment elbow 90 deg during resisted IR/ER. PRovided HOs for recall/ performance. Physical Therapy Plan Frequency and Duration Frequency of Treatment 1x/Week Duration of treatment (weeks) 8 Plan of Care Start Date 12/24/23 Plan of Care End Date 02/18/24 Therapeutic Interventions Therapeutic Interventions Home Exercise Program,Joint Mobilizations,Manual Therapy, Neuromuscular Re-education, Patient/Caregiver Education, Self-Care/Home Management,Soft Tissue Mobilization, Therapeutic Activities, Therapeutic Exercises Modalities Cold Pack/Ice Massage,Electric Stimulation,Hot Packs, Iontophoresis,Ultrasound Other Therapeutic Interventions 4 mg/mL Dexamethasone with Sodium Phosphate. Next Visit Focus/Plan Next Note Type Treatment Note Next Visit Plan (Note: Min addition of home ex's due to pt's difficulty in doing home ex's). Pt to be seen every 1-4 weeks with focus on HEP. Next: If pt able to do w/o causing pain, add Gentle median neural glides, assess and add other nerve glides as appropriate. Cont proper posturing and body mechanics for ADLS w/RC protection in mind, and self care pain mgmt techniques. POC Shoulders: Monitor: L shoulder RC pain, R shoulder arthritis pain; POC LB/Hip therapy: core stabilization, Sciatic pain rehab including ROM, LE strengthening.
--- NOTE | 2024-01-23 10:34 | PT.OTN ---
Current Diagnoses Pain in right shoulder (01/23/24) Pain in left shoulder (01/23/24) Other kyphosis, thoracic region (01/23/24) Postural lordosis, thoracolumbar region (01/23/24) Postural lordosis, lumbosacral region (01/23/24) Cervicalgia (01/23/24) Muscle weakness (generalized) (01/23/24) Pain in right arm (01/23/24) Pain in left arm (01/23/24) Pain in right leg (01/23/24) Pain in left leg (01/23/24) Physical Therapy Treatment Note PT-OP-A Visit Information Start: 07/02/23 16:35 Freq: Status: Active Protocol: Document 01/23/24 09:56 SP (Rec: 01/23/24 10:36 SP [id number]) Out-Patient Physical Therapy Visit Information Visit Information Visit Type Treatment Note Visit Start Time 09:56 Visit Stop Time 10:34 Visit Number 20 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 PT-OP-B Current Condition Start: 07/02/23 16:35 Freq: Status: Active Protocol: Document 07/19/23 11:23 LRN (Rec: 07/19/23 17:28 LRN [id number]) Current Condition History of Current Condition Onset Date ~05/03/23 Current Complaints Abby shoulder pain is interrupting sleep. Pain across LB, hip, thighs. History of Current Condition States her main focus is her Abby Shoulder pain (L stiffer than R). In last 2 months started to wake her up during the night (can sleep 5 hrs with rub cream). Had good mobility until April (went to [place] in March). She reports decreased shoulder ROM because difficulty putting on /off Tshirt and tucking shirt in the back into pants. Less bothersome, but present is pain across the Iliac crests with tightness and pain at IT Bands and quads. Sometimes sciatic pain down both legs. Neck is not bother her today. Prior Treatments and Tests X-rays (02/18/23): L shoulder - mod OA, Neck - DDD throughout spine with suggestion of bilateral foraminal stenosis at C4-5 through C6-7 levels. Lumbar Spine - DDD throughout spine, 8 mm anterolisthesis of L4 on L5. Future Testing and Treatments Planned Dr. Martinez appt 07/22/23 for GI dysfunction. Treatment Goals Patient/Caregiver Goals Pt goal:1) Sleep 4-5 hrs at night before getting up to use BR, and return to sleep for another couple of hours. 2) Improve ROM to take off T- Shirt blouse from an overhead or partial overhead postion and put in hair clips without noticing the shoulders discomfot and be able to lift L arm to put on deodorant with ease. Pt goals for LB/LE's: to address/create after shoulder rehab. Prior Functional Status Baseline Function- Other 5 hrs of sleep a night Current Functional Impairments (Reported) Functional Limitations- Other Interrupted sleeping every 2-3 hrs. Sleeps for a total of 7 hrs if able to sit up in a recliner to reduce shoulder pain, then can fall back asleep or sleeps in the recliner chair, nightly. Personal Factors Other Personal Factors That May Effect Chronic pain, Arthritis, Therapy/Recovery Diabetes type II. PT-OP-C Subjective Start: 07/02/23 16:35 Freq: Status: Active Protocol: Document 01/23/24 09:56 SP (Rec: 01/23/24 10:36 SP [id number]) OP-PT Subjective Patient Comments Patient Comments Pt stated returned to [employer], mostly UE equipment, able to do with mderate range mindful pnfree, Hard to do OH pressing, weakness. States the L arm not as much range as has after 2 tx ago. She reports her neck pretty stiff upon arrival today. PT-OP-H Neuro Start: 07/02/23 16:35 Freq: Status: Active Protocol: Document 07/19/23 11:23 LRN (Rec: 07/19/23 17:28 LRN [id number]) Sensation Evaluation Comments Summary Comments Gross sensation in UE's assessed and found to be WNL. PT-OP-J Posture/Palpation/Skin Start: 07/02/23 16:35 Freq: Status: Active Protocol: Document 07/19/23 11:23 LRN (Rec: 07/19/23 17:28 LRN [id number]) Posture Evaluation Position Standing Head/C-Spine Posture Forward Head T-Spine Posture Increased Kyphosis L-Spine Posture Increased Lordosis Shoulder Posture (L) Rounded,(R) Rounded,(L) Forward,(R) Forward,(L) Elevated Scapula Posture (L) Elevated Pelvis Posture (R) PSIS Posterior Comments Posture Comments C-Curve of lower thoracic & lumbar spine with apex on the left. Iliac Crest height is level. Palpation Assessment Location Hips Palpation Location Bilateral Greater Trochanters & IT Bands Palpation Findings Tenderness Low Back Palpation Location PSIS's, QL at Iliac Crest, Lateral Sacral borders Palpation Findings Soft Tissue Tightness, Tenderness Thoracic region Palpation Location Upper T/S paraspinals & chest at lower sternum Palpation Findings Soft Tissue Tightness, Tenderness Neck Palpation Location L>R UT, L Paraspinals Palpation Findings Soft Tissue Tightness, Tenderness Shoulders Palpation Location Around shoulder joints Palpation Findings Tenderness PT-OP-K Range of Motion Start: 07/02/23 16:35 Freq: Status: Active Protocol: Document 12/24/23 09:53 LRN (Rec: 12/24/23 10:35 LRN [id number]) Hip Goniometric Range of Motion Hip Right Passive Testing Position Supine Straight Leg Raise 62 Internal Rotation 20 External Rotation 60 Left Passive Testing Position Supine Straight Leg Raise 65 Internal Rotation 20 External Rotation 60 PT-OP-L Special Tests Start: 07/02/23 16:35 Freq: Status: Active Protocol: Document 07/22/23 14:17 LRN (Rec: 07/22/23 16:19 LRN [id number]) Special Tests Cervical Spine Special Tests Upper Limb Tension Test Test Results + bilaterally with R worse than L. Comments RUE very limited in mobility, LUE mostly limited with radial nerve glide. PT-OP-M Strength Start: 07/02/23 16:35 Freq: Status: Active Protocol: Document 12/03/23 13:46 LRN (Rec: 12/03/23 14:34 LRN [id number]) Hip Strength Hip Manual Muscle Testing Right Comments Strength 5/5 Left Comments Strength 5/5 PT-OP-Q Treatments Start: 07/02/23 16:35 Freq: Status: Active Protocol: Document 01/23/24 09:56 SP (Rec: 01/23/24 10:36 SP [id number]) Therapeutic Exercises Sitting Exercises FF Side left Reps/Minutes 5 reps pre/during MWM/post manual Comments improved FF seated end tx not measured Manual Therapy Treatment Soft Tissue Mobilization CS STMs Body Location CS paraspinals C1-7 level, L Scalenes Mobilization Type Myofascial Release,Rolling, Sustained Pressure Comments sustained pressure with breath , MWM FF L UE OH FF shld STMs Body Location B: distal lat, prox tricep, Paula, Mobilization Type Strumming,Sustained Pressure, Other Intensity/Depth Moderate Body Position Sidelying Comments improved ROM w/ manual STMs and MWM AAROM ROM FF, HABD<> HADD Joint Mobilizations CS Joint C7 R rot, T2-4 PA Body Position Supine Comments passive and MWM head turn R and with breath L Scapulothoracic Direction retraction/depression, UR, DR with FF Comments with manual STMs improved ROM with HABD/ADD/ FF / GH Jt Joint L Direction inferior glide Grade II Comments supine and seated prox humeral inferior glide MWM FF Manual Traction 1st rib Details L Comments supine and seated: MWM breath and FF OH post manual Gentle Cervical traction Details Gentle C. traction with neck at 30 deg's flexed Body Position Supine Comments decreased tension in neck Self-Care/Home Management Treatment Education Patient Education Body Mechanics,Home Exercise Program,Joint Protection,Pain Management,Posture Other Education Much time postural alignment with use of skeleton and anatomy education for balanced musculature to decrease over stress on CS, head, Shoulder, spine for painfree ROM in UEs, head. PT-OP-T Assessment and Plan Start: 07/02/23 16:35 Freq: Status: Active Protocol: Document 01/23/24 09:56 SP (Rec: 01/23/24 10:36 SP [id number]) Physical Therapy Assessment Goals Six Impairment Poor core stability hindering progress to decr LBP Impairment Pt not able to maintain abdominal contraction with exercise and head lift. Short Term Goal (STG) Pt will be able to maintain abdominal bracing with head lift. STG Duration 4 wks-01/21/24 Clinical Pharmacist Goal (LTG) Pt will be able to maintain abdominal bracing with core & LE exercises. LTG Duration 8 wks-02/18/24 Five Impairment LE (Greater trochanter, hamstring, quad, knee) pain Impairment Thigh pain 4-5/10 with occasional 8-9 shooting pain. LEFS is 44 with one question unanswered (40-59% impaired with score 32-47). 10/01/23: LBP rated 4/10, sometimes pain down leg; Thigh pain rated 2-3/10 with no shooting pain. LEFS score 49 (20-39% impaired, score 48-62 ). Short Term Goal (STG) Pt consistent with HEP & Ex workout of LE ex's total of 2- 3x/week and UE ex's 2-3x/wk to reduce LBP or thigh pain. 11/05/23: After recent COVID, doing UE ex's daily at night. Added R hip ER & L hip IR stretch. 12/03/23: 2x/wk doing leg ex' s, 2-3x/wk with arm ex's. 12/24/23: combined 2x/wk leg and arm ex's. Walking 30-35', not consistent amt/wk. STG Duration 8 weeks (11/29/23) (12/24/23 : MET GOAL) Assisted Goal (LTG) Improve function per LEFS score of 59 or greater. 12/03/23: LEFS score is 37. 12/24/23: LEFS score is 35 ( 40-59% impaired, score 32-47) LTG Duration 8 wks-02/18/24 Worse 12/24/23 One Impairment Pt lacks appropriate shoulder/ thoracic spine HEP. Short Term Goal (STG) Pt will be able to put on underarm deodorant with ease. 09/05/23: Can now hold arms overhead to put underarm deodorant. STG Duration 09/17/23 (7 weeks) (: MET GOAL) Clinical Pharmacist Goal (LTG) Pt will be independent in a self care HEP of shoulder/ thoracic/back/hip/knee ROM and strengthening ex's. 07/22/23: Shldr HEP: Codman's, AROM: ER, Flex, protraction; Resisted abby scapular stab: Shdr Ext & ADD. 08/06/23: HEP: Shoulder AROM : supine windshield wipe & flex; sup & standing scap pinches. 09/03/23: added side abd, open book, ER 1# DB. 11/28/23: I/S adding 1# wgt for HABD-HADD, alt arm lifts and scap protraction. 12/17/23: progressed: added resisted shld ext, adduction and IR/ER TB #3. LTG Duration 8 more wks-02/18/24 progressed 12/17/22 (need thoracic/back/hip/knee ex's) Assessment Summary Assessment Pt reported decreased neck stiffness, increased CS R rotation and R OH reaching post manual, not measured. Much time spent education of anatomy of cervical and shoulder complex musculature and for mechanics of mobility and how posturing/positioning can affect pain in neck and L should limiting mobility, better understanding. Improved FF AROM end tx and how posturing alignment notices improvement in ROM. She verbalized will apply [facility] [employer] Physical Therapy Plan Frequency and Duration Frequency of Treatment 1x/Week Duration of treatment (weeks) 8 Plan of Care Start Date 12/24/23 Plan of Care End Date 02/18/24 Therapeutic Interventions Therapeutic Interventions Home Exercise Program,Joint Mobilizations,Manual Therapy, Neuromuscular Re-education, Patient/Caregiver Education, Self-Care/Home Management,Soft Tissue Mobilization, Therapeutic Activities, Therapeutic Exercises Modalities Cold Pack/Ice Massage,Electric Stimulation,Hot Packs, Iontophoresis,Ultrasound Other Therapeutic Interventions 4 mg/mL Dexamethasone with Sodium Phosphate. Next Visit Focus/Plan Next Note Type Treatment Note Next Visit Plan Next tx: Initiated gym pull down/rows and OH ROM for support return to [facility] [employer]. (Note: Min addition of home ex's due to pt's difficulty in doing home ex's). Pt to be seen every 1-4 weeks with focus on HEP. Next: If pt able to do w/o causing pain, add Gentle median neural glides, assess and add other nerve glides as appropriate. Cont proper posturing and body mechanics for ADLS w/RC protection in mind, and self care pain mgmt techniques. POC Shoulders: Monitor: L shoulder RC pain, R shoulder arthritis pain; POC LB/Hip therapy: core stabilization, Sciatic pain rehab including ROM, LE strengthening.
--- NOTE | 2024-01-28 16:36 | PT.OTN ---
Current Diagnoses Pain in right shoulder (01/28/24) Pain in left shoulder (01/28/24) Other kyphosis, thoracic region (01/28/24) Postural lordosis, thoracolumbar region (01/28/24) Postural lordosis, lumbosacral region (01/28/24) Cervicalgia (01/28/24) Muscle weakness (generalized) (01/28/24) Pain in right arm (01/28/24) Pain in left arm (01/28/24) Pain in right leg (01/28/24) Pain in left leg (01/28/24) Physical Therapy Treatment Note PT-OP-A Visit Information Start: 07/02/23 16:35 Freq: Status: Active Protocol: Document 01/28/24 09:50 LRN (Rec: 01/28/24 10:34 LRN [id number]) Out-Patient Physical Therapy Visit Information Visit Information Visit Type Treatment Note Visit Start Time 09:50 Visit Stop Time 10:30 Visit Number 21 Number of WELLNESS AMBASSADOR Visits 2 Evaluation Information Evaluation Date 07/19/23 Precautions Precautions Arthritis, back pain Diabete's type II, Hypothyroidism, L broken ankle and tibia 2003. PT-OP-B Current Condition Start: 07/02/23 16:35 Freq: Status: Active Protocol: Document 07/19/23 11:23 LRN (Rec: 07/19/23 17:28 LRN [id number]) Current Condition History of Current Condition Onset Date ~05/03/23 Current Complaints Lan shoulder pain is interrupting sleep. Pain across LB, hip, thighs. History of Current Condition States her main focus is her Lan Shoulder pain (L stiffer than R). In last 2 months started to wake her up during the night (can sleep 5 hrs with rub cream). Had good mobility until April (went to [place] in March). She reports decreased shoulder ROM because difficulty putting on /off Tshirt and tucking shirt in the back into pants. Less bothersome, but present is pain across the Iliac crests with tightness and pain at IT Bands and quads. Sometimes sciatic pain down both legs. Neck is not bother her today. Prior Treatments and Tests X-rays (02/18/23): L shoulder - mod OA, Neck - DDD throughout spine with suggestion of bilateral foraminal stenosis at C4-5 through C6-7 levels. Lumbar Spine - DDD throughout spine, 8 mm anterolisthesis of L4 on L5. Future Testing and Treatments Planned Dr. Martinez appt 07/22/23 for GI dysfunction. Treatment Goals Patient/Caregiver Goals Pt goal:1) Sleep 4-5 hrs at night before getting up to use BR, and return to sleep for another couple of hours. 2) Improve ROM to take off T- Shirt blouse from an overhead or partial overhead postion and put in hair clips without noticing the shoulders discomfot and be able to lift L arm to put on deodorant with ease. Pt goals for LB/LE's: to address/create after shoulder rehab. Prior Functional Status Baseline Function- Other 5 hrs of sleep a night Current Functional Impairments (Reported) Functional Limitations- Other Interrupted sleeping every 2-3 hrs. Sleeps for a total of 7 hrs if able to sit up in a recliner to reduce shoulder pain, then can fall back asleep or sleeps in the recliner chair, nightly. Personal Factors Other Personal Factors That May Effect Chronic pain, Arthritis, Therapy/Recovery Diabetes type II. PT-OP-C Subjective Start: 07/02/23 16:35 Freq: Status: Active Protocol: Document 01/28/24 09:50 LRN (Rec: 01/28/24 10:34 LRN [id number]) OP-PT Subjective Patient Comments Patient Comments Achey today. Yesterday had R hip/posterior thigh pain. Had massage yesterday. Overall the L shoulder/arm pain went away after the last 2 session, today has L upper arm ( deltoid) discomfort. PT-OP-H Neuro Start: 07/02/23 16:35 Freq: Status: Active Protocol: Document 07/19/23 11:23 LRN (Rec: 07/19/23 17:28 LRN [id number]) Sensation Evaluation Comments Summary Comments Gross sensation in UE's assessed and found to be WNL. PT-OP-J Posture/Palpation/Skin Start: 07/02/23 16:35 Freq: Status: Active Protocol: Document 07/19/23 11:23 LRN (Rec: 07/19/23 17:28 LRN [id number]) Posture Evaluation Position Standing Head/C-Spine Posture Forward Head T-Spine Posture Increased Kyphosis L-Spine Posture Increased Lordosis Shoulder Posture (L) Rounded,(R) Rounded,(L) Forward,(R) Forward,(L) Elevated Scapula Posture (L) Elevated Pelvis Posture (R) PSIS Posterior Comments Posture Comments C-Curve of lower thoracic & lumbar spine with apex on the left. Iliac Crest height is level. Palpation Assessment Location Hips Palpation Location Bilateral Greater Trochanters & IT Bands Palpation Findings Tenderness Low Back Palpation Location PSIS's, QL at Iliac Crest, Lateral Sacral borders Palpation Findings Soft Tissue Tightness, Tenderness Thoracic region Palpation Location Upper T/S paraspinals & chest at lower sternum Palpation Findings Soft Tissue Tightness, Tenderness Neck Palpation Location L>R UT, L Paraspinals Palpation Findings Soft Tissue Tightness, Tenderness Shoulders Palpation Location Around shoulder joints Palpation Findings Tenderness PT-OP-K Range of Motion Start: 07/02/23 16:35 Freq: Status: Active Protocol: Document 12/24/23 09:53 LRN (Rec: 12/24/23 10:35 LRN [id number]) Hip Goniometric Range of Motion Hip Right Passive Testing Position Supine Straight Leg Raise 62 Internal Rotation 20 External Rotation 60 Left Passive Testing Position Supine Straight Leg Raise 65 Internal Rotation 20 External Rotation 60 PT-OP-L Special Tests Start: 07/02/23 16:35 Freq: Status: Active Protocol: Document 07/22/23 14:17 LRN (Rec: 07/22/23 16:19 LRN [id number]) Special Tests Cervical Spine Special Tests Upper Limb Tension Test Test Results + bilaterally with R worse than L. Comments RUE very limited in mobility, LUE mostly limited with radial nerve glide. PT-OP-M Strength Start: 07/02/23 16:35 Freq: Status: Active Protocol: Document 12/03/23 13:46 LRN (Rec: 12/03/23 14:34 LRN [id number]) Hip Strength Hip Manual Muscle Testing Right Comments Strength 5/5 Left Comments Strength 5/5 PT-OP-Q Treatments Start: 07/02/23 16:35 Freq: Status: Active Protocol: Document 01/28/24 09:50 LRN (Rec: 01/28/24 10:34 LRN [id number]) Therapeutic Exercises Supine Exercises Neck Elongation Supine Exercise Name Neck Elongation (cuing of pt to not move head around) Reps/Minutes 10 SH x 5 Comments Much extra time needed to get pt to elongate neck, cuing at head & v cuing Shoulder Flex Supine Exercise Name Alt arm lifts w/scap retract/ depression Side bilateral Reps/Minutes 10 each Standing Exercises Lat pulll down Standing Exercise Name Lat pull down Equipment Used L2 TB Reps/Minutes 10x shoulder extension Standing Exercise Name Row Side bilateral Equipment Used L2 TB Reps/Minutes 10x Manual Therapy Treatment Manual Traction 1st rib Details 1st rib stretch Reps/Duration 2' Comments supine: MWM breath and FF OH post manual Gentle Cervical traction Details Gentle C. traction with neck at 30 deg's flexed Body Position Supine Reps/Duration 14' Comments decreased tension in neck Manual Techniques MWM Type Scap retract/depression with sup/sit alternate arm lifts. Body Location L Scapula Reps/Duration 3' Self-Care/Home Management Treatment Education Patient Education Home Exercise Program,Posture Other Education Educated and discussed at length pt posturing in sitting and how to support self to rest and relax in the evening if she conts to sit 2-3 hrs in the evening. Discussed pt HEP and reviewed goals and POC. Encouraged pt to continue with HEP for consistency of ex's and discussed how pt was feeling better while doing her home exercises. PT-OP-T Assessment and Plan Start: 07/02/23 16:35 Freq: Status: Active Protocol: Document 01/28/24 09:50 LRN (Rec: 01/28/24 10:34 LRN [id number]) Physical Therapy Assessment Goals Six Impairment Poor core stability hindering progress to decr LBP Impairment Pt not able to maintain abdominal contraction with exercise and head lift. Short Term Goal (STG) Pt will be able to maintain abdominal bracing with head lift. STG Duration 4 wks-01/21/24 Head Pastry Chef Goal (LTG) Pt will be able to maintain abdominal bracing with core & LE exercises. LTG Duration 8 wks-02/18/24 Five Impairment LE (Greater trochanter, hamstring, quad, knee) pain Impairment Thigh pain 4-5/10 with occasional 8-9 shooting pain. LEFS is 44 with one question unanswered (40-59% impaired with score 32-47). 10/01/23: LBP rated 4/10, sometimes pain down leg; Thigh pain rated 2-3/10 with no shooting pain. LEFS score 49 (20-39% impaired, score 48-62 ). Short Term Goal (STG) Pt consistent with HEP & Ex workout of LE ex's total of 2- 3x/week and UE ex's 2-3x/wk to reduce LBP or thigh pain. 11/05/23: After recent COVID, doing UE ex's daily at night. Added R hip ER & L hip IR stretch. 12/03/23: 2x/wk doing leg ex' s, 2-3x/wk with arm ex's. 12/24/23: combined 2x/wk leg and arm ex's. Walking 30-35', not consistent amt/wk. STG Duration 8 weeks (11/29/23) (12/24/23 : MET GOAL) Mcc Goal (LTG) Improve function per LEFS score of 59 or greater. 12/03/23: LEFS score is 37. 12/24/23: LEFS score is 35 ( 40-59% impaired, score 32-47) LTG Duration 8 wks-02/18/24 Worse 12/24/23 One Impairment Pt lacks appropriate shoulder/ thoracic spine HEP. Short Term Goal (STG) Pt will be able to put on underarm deodorant with ease. 09/05/23: Can now hold arms overhead to put underarm deodorant. STG Duration 09/17/23 (7 weeks) (: MET GOAL) Mcc Goal (LTG) Pt will be independent in a self care HEP of shoulder/ thoracic/back/hip/knee ROM and strengthening ex's. 07/22/23: Shldr HEP: Codman's, AROM: ER, Flex, protraction; Resisted lan scapular stab: Shdr Ext & ADD. 08/06/23: HEP: Shoulder AROM : supine windshield wipe & flex; sup & standing scap pinches. 09/03/23: added side abd, open book, ER 1# DB. 11/28/23: I/S adding 1# wgt for HABD-HADD, alt arm lifts and scap protraction. 12/17/23: progressed: added resisted shld ext, adduction and IR/ER TB #3. LTG Duration 8 more wks-02/18/24 progressed 12/17/22 (need thoracic/back/hip/knee ex's) Assessment Summary Assessment 73 yo female who initially presented with complaints of pain in most areas of her body , and was most interested in decreasing shoulder pain to improve sleep. She has not been doing her HEP and has noted onset of LB/R hip pain and acknowleges she is sitting 2-3 hrs in evening. Strongly recommended pt be consistent with her HEP or + changes might not occur. Pt appears more committed to do HEP. Manual gentle C. traction reduced her R upper arm pain. OH arm raises in sitting causes shoulder pain, but is less w/improved scapulohumeral rhythm. Physical Therapy Plan Frequency and Duration Frequency of Treatment 1x/Week Duration of treatment (weeks) 8 Plan of Care Start Date 12/24/23 Plan of Care End Date 02/18/24 Next Visit Focus/Plan Next Note Type Treatment Note Next Visit Plan Progress: gym-like pull down/ rows and OH ROM for support to return to [employer] gym. (Note: Min addition of home ex's due to pt's difficulty in doing home ex's). Pt to be seen every 1-4 weeks with focus on HEP. Next: If pt able to do w/o causing pain, add Gentle median neural glides, assess and add other nerve glides as appropriate. Cont proper posturing and body mechanics for ADLS w/RC protection in mind, and self care pain mgmt techniques. POC Shoulders: Monitor: L shoulder RC pain, R shoulder arthritis pain; POC LB/Hip therapy: core stabilization, Sciatic pain rehab including ROM, LE strengthening.
--- NOTE | 2024-02-04 15:40 | PT.OTN ---
Current Diagnoses Pain in right shoulder (02/04/24) Pain in left shoulder (02/04/24) Other kyphosis, thoracic region (02/04/24) Postural lordosis, thoracolumbar region (02/04/24) Postural lordosis, lumbosacral region (02/04/24) Cervicalgia (02/04/24) Muscle weakness (generalized) (02/04/24) Pain in right arm (02/04/24) Pain in left arm (02/04/24) Pain in right leg (02/04/24) Pain in left leg (02/04/24) Physical Therapy Treatment Note PT-OP-A Visit Information Start: 07/02/23 16:35 Freq: Status: Active Protocol: Document 02/04/24 14:39 LRN (Rec: 02/04/24 15:38 LRN [id number]) Out-Patient Physical Therapy Visit Information Visit Information Visit Type Treatment Note Visit Start Time 14:39 Visit Stop Time 15:20 Visit Number 22 Evaluation Information Evaluation Date 07/19/23 Precautions Precautions Arthritis, back pain Diabete's type II, Hypothyroidism, L broken ankle and tibia 2003. PT-OP-B Current Condition Start: 07/02/23 16:35 Freq: Status: Active Protocol: Document 07/19/23 11:23 LRN (Rec: 07/19/23 17:28 LRN [id number]) Current Condition History of Current Condition Onset Date ~05/03/23 Current Complaints Abby shoulder pain is interrupting sleep. Pain across LB, hip, thighs. History of Current Condition States her main focus is her Abby Shoulder pain (L stiffer than R). In last 2 months started to wake her up during the night (can sleep 5 hrs with rub cream). Had good mobility until April (went to [place] in March). She reports decreased shoulder ROM because difficulty putting on /off Tshirt and tucking shirt in the back into pants. Less bothersome, but present is pain across the Iliac crests with tightness and pain at IT Bands and quads. Sometimes sciatic pain down both legs. Neck is not bother her today. Prior Treatments and Tests X-rays (02/18/23): L shoulder - mod OA, Neck - DDD throughout spine with suggestion of bilateral foraminal stenosis at C4-5 through C6-7 levels. Lumbar Spine - DDD throughout spine, 8 mm anterolisthesis of L4 on L5. Future Testing and Treatments Planned Dr. Martinez appt 07/22/23 for GI dysfunction. Treatment Goals Patient/Caregiver Goals Pt goal:1) Sleep 4-5 hrs at night before getting up to use BR, and return to sleep for another couple of hours. 2) Improve ROM to take off T- Shirt blouse from an overhead or partial overhead postion and put in hair clips without noticing the shoulders discomfot and be able to lift L arm to put on deodorant with ease. Pt goals for LB/LE's: to address/create after shoulder rehab. Prior Functional Status Baseline Function- Other 5 hrs of sleep a night Current Functional Impairments (Reported) Functional Limitations- Other Interrupted sleeping every 2-3 hrs. Sleeps for a total of 7 hrs if able to sit up in a recliner to reduce shoulder pain, then can fall back asleep or sleeps in the recliner chair, nightly. Personal Factors Other Personal Factors That May Effect Chronic pain, Arthritis, Therapy/Recovery Diabetes type II. PT-OP-C Subjective Start: 07/02/23 16:35 Freq: Status: Active Protocol: Document 02/04/24 14:39 LRN (Rec: 02/04/24 15:38 LRN [id number]) OP-PT Subjective Patient Comments Patient Comments Tired. c/o back hurting in middle of spine and LB. States she has been better about exercising, did 3-4x this past week. L shoulder has been better. PT-OP-H Neuro Start: 07/02/23 16:35 Freq: Status: Active Protocol: Document 07/19/23 11:23 LRN (Rec: 07/19/23 17:28 LRN [id number]) Sensation Evaluation Comments Summary Comments Gross sensation in UE's assessed and found to be WNL. PT-OP-J Posture/Palpation/Skin Start: 07/02/23 16:35 Freq: Status: Active Protocol: Document 07/19/23 11:23 LRN (Rec: 07/19/23 17:28 LRN [id number]) Posture Evaluation Position Standing Head/C-Spine Posture Forward Head T-Spine Posture Increased Kyphosis L-Spine Posture Increased Lordosis Shoulder Posture (L) Rounded,(R) Rounded,(L) Forward,(R) Forward,(L) Elevated Scapula Posture (L) Elevated Pelvis Posture (R) PSIS Posterior Comments Posture Comments C-Curve of lower thoracic & lumbar spine with apex on the left. Iliac Crest height is level. Palpation Assessment Location Hips Palpation Location Bilateral Greater Trochanters & IT Bands Palpation Findings Tenderness Low Back Palpation Location PSIS's, QL at Iliac Crest, Lateral Sacral borders Palpation Findings Soft Tissue Tightness, Tenderness Thoracic region Palpation Location Upper T/S paraspinals & chest at lower sternum Palpation Findings Soft Tissue Tightness, Tenderness Neck Palpation Location L>R UT, L Paraspinals Palpation Findings Soft Tissue Tightness, Tenderness Shoulders Palpation Location Around shoulder joints Palpation Findings Tenderness PT-OP-K Range of Motion Start: 07/02/23 16:35 Freq: Status: Active Protocol: Document 12/24/23 09:53 LRN (Rec: 12/24/23 10:35 LRN [id number]) Hip Goniometric Range of Motion Hip Right Passive Testing Position Supine Straight Leg Raise 62 Internal Rotation 20 External Rotation 60 Left Passive Testing Position Supine Straight Leg Raise 65 Internal Rotation 20 External Rotation 60 PT-OP-L Special Tests Start: 07/02/23 16:35 Freq: Status: Active Protocol: Document 07/22/23 14:17 LRN (Rec: 07/22/23 16:19 LRN [id number]) Special Tests Cervical Spine Special Tests Upper Limb Tension Test Test Results + bilaterally with R worse than L. Comments RUE very limited in mobility, LUE mostly limited with radial nerve glide. PT-OP-M Strength Start: 07/02/23 16:35 Freq: Status: Active Protocol: Document 12/03/23 13:46 LRN (Rec: 12/03/23 14:34 LRN [id number]) Hip Strength Hip Manual Muscle Testing Right Comments Strength 5/5 Left Comments Strength 5/5 PT-OP-Q Treatments Start: 07/02/23 16:35 Freq: Status: Active Protocol: Document 02/04/24 14:39 LRN (Rec: 02/04/24 15:38 LRN [id number]) Therapeutic Exercises Supine Exercises TA w/SLR Side bilateral Reps/Minutes 3' Comments Cued to keep TA tight TA w/trunk rot Supine Exercise Name Rib cage drawn in w/TA. Side bilateral Reps/Minutes 6' Comments Cuing: draw rib\cage in w/ exhale, and keep ribcage in w/ inhale on return. TA w/step outs Side bilateral Reps/Minutes 5x 2 each Neck Elongation Supine Exercise Name Neck Elongation (cuing of pt to not move head into flex) Reps/Minutes 12' Comments cuing at head & v cuing Shoulder Flex Supine Exercise Name Alt arm lifts w/scap retract/ depression Side bilateral Reps/Minutes 6' Manual Therapy Treatment Manual Traction Gentle Cervical traction Details Gentle C. traction with neck at 30 deg's flexed Body Position Supine Reps/Duration 6' Comments decreased tension in neck Nerve Glides Median Nerve Median n. glide neck elongation. Details Bilateral arms Body Position Hooklying Reps/Duration 3' Self-Care/Home Management Treatment Education Other Education Review of sit<>stand w/hip hinging and proper lift technique with back in NS. Activities Self-Care/Home Management Activities I/S pt to do neck elongation ex with fingertips moving under /out from behind head. I/S pt in TA/SLR ex for lower ab strengthening and LTR of knees with drawing of ribs inward for upper thoracic TA tightening. PT-OP-T Assessment and Plan Start: 07/02/23 16:35 Freq: Status: Active Protocol: Document 02/04/24 14:39 LRN (Rec: 02/04/24 15:38 LRN [id number]) Physical Therapy Assessment Goals Six Impairment Poor core stability hindering progress to decr LBP Impairment Pt not able to maintain abdominal contraction with exercise and head lift. Short Term Goal (STG) Pt will be able to maintain abdominal bracing with head lift. 02/04/24: Maintains abdominal brace with TA/heel slide. Started neck Elongation with nathalie hold. STG Duration 4 wks-01/21/24 progressing Usp Goal (LTG) Pt will be able to maintain abdominal bracing with core & LE exercises. LTG Duration 8 wks-02/18/24 Five Impairment LE (Greater trochanter, hamstring, quad, knee) pain Impairment Thigh pain 4-5/10 with occasional 8-9 shooting pain. LEFS is 44 with one question unanswered (40-59% impaired with score 32-47). 10/01/23: LBP rated 4/10, sometimes pain down leg; Thigh pain rated 2-3/10 with no shooting pain. LEFS score 49 (20-39% impaired, score 48-62 ). Short Term Goal (STG) Pt consistent with HEP & Ex workout of LE ex's total of 2- 3x/week and UE ex's 2-3x/wk to reduce LBP or thigh pain. 11/05/23: After recent COVID, doing UE ex's daily at night. Added R hip ER & L hip IR stretch. 12/03/23: 2x/wk doing leg ex' s, 2-3x/wk with arm ex's. 12/24/23: combined 2x/wk leg and arm ex's. Walking 30-35', not consistent amt/wk. STG Duration 8 weeks (11/29/23) (12/24/23 : MET GOAL) Painting Supervisor Goal (LTG) Improve function per LEFS score of 59 or greater. 12/03/23: LEFS score is 37. 12/24/23: LEFS score is 35 ( 40-59% impaired, score 32-47) LTG Duration 8 wks-02/18/24 Worse 12/24/23 One Impairment Pt lacks appropriate shoulder/ thoracic spine HEP. Short Term Goal (STG) Pt will be able to put on underarm deodorant with ease. 09/05/23: Can now hold arms overhead to put underarm deodorant. STG Duration 09/17/23 (7 weeks) (: MET GOAL) Usp Goal (LTG) Pt will be independent in a self care HEP of shoulder/ thoracic/back/hip/knee ROM and strengthening ex's. 07/22/23: Shldr HEP: Codman's, AROM: ER, Flex, protraction; Resisted abby scapular stab: Shdr Ext & ADD. 08/06/23: HEP: Shoulder AROM : supine windshield wipe & flex; sup & standing scap pinches. 09/03/23: added side abd, open book, ER 1# DB. 11/28/23: I/S adding 1# wgt for HABD-HADD, alt arm lifts and scap protraction. 12/17/23: progressed: added resisted shld ext, adduction and IR/ER TB #3. 01/924: I/S in HEP: Neck elongation, median n glide with neck elongation, TA/ SLR (lower TA) & TA/LTR (upper TA) . LTG Duration 8 more wks-02/18/24 progressed 02/03/23 (need thoracic stre/hip/knee ex's) Assessment Summary Assessment 73 yo female who initially presented with complaints of pain in most areas of her body , and was most interested in decreasing shoulder pain to improve sleep. Today pt is feeling a little sore in back/ spine due to helping [employer] with [employer] this week. After neck elongation ex and training her in a home ex of the same, she was able to move the L shoulder in AB & FLex w / less pain at top of shoulder when performing neck elongation, and can do median n glide with neck elongation with good tolerance/no pain. Physical Therapy Plan Frequency and Duration Frequency of Treatment 1x/Week Duration of treatment (weeks) 8 Plan of Care Start Date 12/24/23 Plan of Care End Date 02/18/24 Next Visit Focus/Plan Next Note Type Treatment Note Next Visit Plan Check for progression tolerance to gym-like pull down/rows and OH ROM for support to return to [employer] gym. (Note: Min addition of home ex's due to pt's difficulty in doing home ex's). Pt to be seen every 1-4 weeks with focus on HEP. Next: Progress slowly 1/visit: HEP: thoracic strengthening/hip/ knee ex's Cont as needed, proper posturing and body mechanics for ADLS w/RC protection in mind, and Self care pain mgmt techniques . POC Shoulders: Monitor: L shoulder RC pain, R shoulder arthritis pain; POC LB/Hip therapy: core stabilization, Sciatic pain rehab including ROM, LE strengthening.
--- NOTE | 2024-09-10 16:55 | PT.OPDS ---
Current Diagnoses Pain in right shoulder (02/04/24) Pain in left shoulder (02/04/24) Other kyphosis, thoracic region (02/04/24) Postural lordosis, thoracolumbar region (02/04/24) Postural lordosis, lumbosacral region (02/04/24) Cervicalgia (02/04/24) Muscle weakness (generalized) (02/04/24) Pain in right arm (02/04/24) Pain in left arm (02/04/24) Pain in right leg (02/04/24) Pain in left leg (02/04/24) Visit Care Team Role Provider Type Joesph Martinez MD Attending Provider Physician Family Provider Primary Care Provider Referring Provider Specialty: Internal Medicine Address: [address] [place] [address], [address], [facility] Email: [email or web address] Visit Number Visit Number 22 Discharge Summary PT-OP-B Current Condition Start: 07/02/23 16:35 Freq: Status: Active Protocol: Document 07/19/23 11:23 LRN (Rec: 07/19/23 17:28 LRN [id number]) Current Condition History of Current Condition Onset Date ~05/03/23 Current Complaints Abby shoulder pain is interrupting sleep. Pain across LB, hip, thighs. History of Current Condition States her main focus is her Abby Shoulder pain (L stiffer than R). In last 2 months started to wake her up during the night (can sleep 5 hrs with rub cream). Had good mobility until April (went to [place] in March). She reports decreased shoulder ROM because difficulty putting on /off Tshirt and tucking shirt in the back into pants. Less bothersome, but present is pain across the Iliac crests with tightness and pain at IT Bands and quads. Sometimes sciatic pain down both legs. Neck is not bother her today. Prior Treatments and Tests X-rays (02/18/23): L shoulder - mod OA, Neck - DDD throughout spine with suggestion of bilateral foraminal stenosis at C4-5 through C6-7 levels. Lumbar Spine - DDD throughout spine, 8 mm anterolisthesis of L4 on L5. Future Testing and Treatments Planned Dr. Martinez appt 07/22/23 for GI dysfunction. Treatment Goals Patient/Caregiver Goals Pt goal:1) Sleep 4-5 hrs at night before getting up to use BR, and return to sleep for another couple of hours. 2) Improve ROM to take off T- Shirt blouse from an overhead or partial overhead postion and put in hair clips without noticing the shoulders discomfot and be able to lift L arm to put on deodorant with ease. Pt goals for LB/LE's: to address/create after shoulder rehab. Prior Functional Status Baseline Function- Other 5 hrs of sleep a night Current Functional Impairments (Reported) Functional Limitations- Other Interrupted sleeping every 2-3 hrs. Sleeps for a total of 7 hrs if able to sit up in a recliner to reduce shoulder pain, then can fall back asleep or sleeps in the recliner chair, nightly. Personal Factors Other Personal Factors That May Effect Chronic pain, Arthritis, Therapy/Recovery Diabetes type II. PT-OP-C Subjective Start: 07/02/23 16:35 Freq: Status: Active Protocol: Document 02/04/24 14:39 LRN (Rec: 02/04/24 15:38 LRN [id number]) OP-PT Subjective Patient Comments Patient Comments Tired. c/o back hurting in middle of spine and LB. States she has been better about exercising, did 3-4x this past week. L shoulder has been better. PT-OP-H Neuro Start: 07/02/23 16:35 Freq: Status: Active Protocol: Document 07/19/23 11:23 LRN (Rec: 07/19/23 17:28 LRN [id number]) Sensation Evaluation Comments Summary Comments Gross sensation in UE's assessed and found to be WNL. PT-OP-J Posture/Palpation/Skin Start: 07/02/23 16:35 Freq: Status: Active Protocol: Document 07/19/23 11:23 LRN (Rec: 07/19/23 17:28 LRN [id number]) Posture Evaluation Position Standing Head/C-Spine Posture Forward Head T-Spine Posture Increased Kyphosis L-Spine Posture Increased Lordosis Shoulder Posture (L) Rounded,(R) Rounded,(L) Forward,(R) Forward,(L) Elevated Scapula Posture (L) Elevated Pelvis Posture (R) PSIS Posterior Comments Posture Comments C-Curve of lower thoracic & lumbar spine with apex on the left. Iliac Crest height is level. Palpation Assessment Location Hips Palpation Location Bilateral Greater Trochanters & IT Bands Palpation Findings Tenderness Low Back Palpation Location PSIS's, QL at Iliac Crest, Lateral Sacral borders Palpation Findings Soft Tissue Tightness, Tenderness Thoracic region Palpation Location Upper T/S paraspinals & chest at lower sternum Palpation Findings Soft Tissue Tightness, Tenderness Neck Palpation Location L>R UT, L Paraspinals Palpation Findings Soft Tissue Tightness, Tenderness Shoulders Palpation Location Around shoulder joints Palpation Findings Tenderness PT-OP-K Range of Motion Start: 07/02/23 16:35 Freq: Status: Active Protocol: Document 12/24/23 09:53 LRN (Rec: 12/24/23 10:35 LRN [id number]) Hip Goniometric Range of Motion Hip Right Passive Testing Position Supine Straight Leg Raise 62 Internal Rotation 20 External Rotation 60 Left Passive Testing Position Supine Straight Leg Raise 65 Internal Rotation 20 External Rotation 60 PT-OP-L Special Tests Start: 07/02/23 16:35 Freq: Status: Active Protocol: Document 07/22/23 14:17 LRN (Rec: 07/22/23 16:19 LRN [id number]) Special Tests Cervical Spine Special Tests Upper Limb Tension Test Test Results + bilaterally with R worse than L. Comments RUE very limited in mobility, LUE mostly limited with radial nerve glide. PT-OP-M Strength Start: 07/02/23 16:35 Freq: Status: Active Protocol: Document 12/03/23 13:46 LRN (Rec: 12/03/23 14:34 LRN [id number]) Hip Strength Hip Manual Muscle Testing Right Comments Strength 5/5 Left Comments Strength 5/5 PT-OP-T Assessment and Plan Start: 07/02/23 16:35 Freq: Status: Active Protocol: Document 09/10/24 16:33 LRN (Rec: 09/10/24 16:46 LRN [id number]) Physical Therapy Assessment Goals Six Impairment Poor core stability hindering progress to decr LBP Impairment Pt not able to maintain abdominal contraction with exercise and head lift. Short Term Goal (STG) Pt will be able to maintain abdominal bracing with head lift. 02/04/24: Maintains abdominal brace with TA/heel slide. Started neck Elongation with nathalie hold. STG Duration 4 wks-01/21/24 (09/10/24: Pt unavailable for final assessment) Alf Goal (LTG) Pt will be able to maintain abdominal bracing with core & LE exercises. LTG Duration 8 wks-02/18/24 (09/10/24: Pt unavailable for final assessment) Five Impairment LE (Greater trochanter, hamstring, quad, knee) pain Impairment Thigh pain 4-5/10 with occasional 8-9 shooting pain. LEFS is 44 with one question unanswered (40-59% impaired with score 32-47). 10/01/23: LBP rated 4/10, sometimes pain down leg; Thigh pain rated 2-3/10 with no shooting pain. LEFS score 49 (20-39% impaired, score 48-62 ). Short Term Goal (STG) Pt consistent with HEP & Ex workout of LE ex's total of 2- 3x/week and UE ex's 2-3x/wk to reduce LBP or thigh pain. 11/05/23: After recent COVID, doing UE ex's daily at night. Added R hip ER & L hip IR stretch. 12/03/23: 2x/wk doing leg ex' s, 2-3x/wk with arm ex's. 12/24/23: combined 2x/wk leg and arm ex's. Walking 30-35', not consistent amt/wk. STG Duration 8 weeks (11/29/23) (12/24/23 : MET GOAL) Alf Goal (LTG) Improve function per LEFS score of 59 or greater. 12/03/23: LEFS score is 37. 12/24/23: LEFS score is 35 ( 40-59% impaired, score 32-47) LTG Duration 8 wks-02/18/24 Worse 12/24/23 (09/10/24: Pt unavailable for final assess) Three Impairment Decreased bilateral shoulder mobility Short Term Goal (STG) Improve ROM to put in hair clips without noticing shoulder discomfort. 08/20/23: progressing: pt demonstrates a ble to reach over head to opposite LUE not and reach up in to cupboard with less pain. 08/27/23: notes tightness but not as much pain after manual, HEP review. Discussed continue home. 09/03/23: GOAL MET: able to put in hair clips self. 09/06/23: Stretch felt posteroinferior to brachium putting clip in hair. 10/01/23: Can put hair clips but feels strain in underside of L arm. STG Duration 08/18/23 (11/28/23: MET GOAL) Communication Equipment Mechanic Goal (LTG) Improve ROM to remove T-Shirt blouse with an overhead or partially overhead motion. 09/03/23: pt is able to reachover top of her head to touch opposite side now. 09/06/23: Pt feels she is 30% better. 10/01/23: Pt feels she may be up to 40% better. 11/05/23: Since Covid, decline ability to 30-35% better. 11/28/23: Pt demonstrates ability to remove loose T- shirt and can reach to opp side of head. LTG Duration 8 wks (11/29/23) (11/28/23: MET GOAL) One Impairment Pt lacks appropriate shoulder/ thoracic spine HEP. Short Term Goal (STG) Pt will be able to put on underarm deodorant with ease. 09/05/23: Can now hold arms overhead to put underarm deodorant. STG Duration 09/17/23 (7 weeks) (: MET GOAL) Alf Goal (LTG) Pt will be independent in a self care HEP of shoulder/ thoracic/back/hip/knee ROM and strengthening ex's. 07/22/23: Shldr HEP: Codman's, AROM: ER, Flex, protraction; Resisted abby scapular stab: Shdr Ext & ADD. 08/06/23: HEP: Shoulder AROM : supine windshield wipe & flex; sup & standing scap pinches. 09/03/23: added side abd, open book, ER 1# DB. 11/28/23: I/S adding 1# wgt for HABD-HADD, alt arm lifts and scap protraction. 12/17/23: progressed: added resisted shld ext, adduction and IR/ER TB #3. 01/924: I/S in HEP: Neck elongation, median n glide with neck elongation, TA/ SLR (lower TA) & TA/LTR (upper TA) . LTG Duration 8 more wks-02/18/24 progressed 02/03/23 (need thoracic stre/hip/knee ex's) Four Impairment LB pain rated 4/10 Impairment Walks 15' before LB starts to feel uncomfortable. Alf Goal (LTG) Pt able to do a 30' on flat trail walk before back starts to feel uncomfortable. 10/01/23: LB tightens after walking a short distance. 11/05/23: Across Iliac Crest tightness after walking 15'. Pt is walking 30' with sometimes resting at 15'. 11/28/23: Walking 20' without having to sit down due to low level of pain from tightness/ discomfort. 12/03/23: Walking 20-30' not consistently before needing to sit, and can walk up to 15' before the LB starts to tighten and cause discomfort w /o having to sit down. 12/17/23: GOAL MET walking about 30-45 min without needing to sit, without increase LBP preventing. LTG Duration 12 weeks (12/24/23) (: MET GOAL) Two Impairment Decreased shoulder stability and strength limiting function Impairment Pt limited in ability to lift L arm to put on underarm deodorant with ease. Pt limited in ability to sleep at night. Pt wakes after 2-3 hours of sleep and usually gets up to lay on recliner chair for another couple of hours of sleep. Short Term Goal (STG) Pt will be educated in best nighttime sleeping positions. 07/22/23: Pt educated in best nighttime sleep positions in sidelie & supine, using pillows to support her UE's and back. 08/02/23: time spent use pillow / towel support for side sleeping, see self care details. 07/30/23: last 2 nights slept 4 hrs and no meds assist. STG Duration 08/02/23 (2 weeks) (07/22/23: MET GOAL) Alf Goal (LTG) Pt will be able to sleep 4-5 hrs at night before getting up to use BR, and return to sleep without having to sleep in recliner chair. 08/02/23: time spent use pillow / towel support for side sleeping, see self care details. 08/27/23: progressing able to sleep for 4 hrs on air mattress before wakes up, did go to reclined remaining 2 hrs sleep, no meds assist for pain needed. 09/06/23: Sleeping up to 3 hrs and once almost 4 hrs. 11/05/23: Sleeping in bed waking after 2-4 hrs, before going back to sleep with use of Tramadol. 11/28/23: Sleeping 4-6 interrupted hours (not interrupted due to pain), and can get back to sleep in bed without a problem. LTG Duration 12 weeks (12/24/23) (: MET GOAL) Assessment Summary Assessment Pt is a 73 yo female who initially presented with complaints of pain in most areas of her body, and was most interested in decreasing shoulder pain to improve sleep . She was inconsistent with her compliance with her HEP and was sporadic with appts due to scheduling difficulties at the clinic and per pt's schedule. The pt has been seen for 22 visits, with her last appt on 02/04/24. [facility] is now beyond her plan of care ; therefore she will need a new referral to return to therapy. The pt is being discharged due to lack of attendance. Physical Therapy Plan Discharge Physical Therapy Discharge Reasons No Longer Attending PT Discharge Comments Goals were partially met. Thank you for your referral.
== END 2024-09-18 10:28 | disposition home or self-care (01) ==
LOC: PHYS 14:30
PROVIDERS: Family Provider Internal Medicine; PCP Internal Medicine; Referring Provider Internal Medicine; Visit Provider Internal Medicine
DX: M79.604 Pain in right leg (principal); M79.605 Pain in left leg; M79.601 Pain in right arm; M79.602 Pain in left arm; M25.511 Pain in right shoulder; M25.512 Pain in left shoulder; M54.2 Cervicalgia; M40.294 Other kyphosis, thoracic region; M40.47 Postural lordosis, lumbosacral region; M40.45 Postural lordosis, thoracolumbar region; M62.81 Muscle weakness (generalized)
CPT/HCPCS: 97110; 97140; 97162; 97535

== ENCOUNTER 2024-05-30 19:36 | Emergency (ER) | payer MEDICARE, SELFPAY ==
[2024-05-30 19:38] VITALS: BP 192/80; PULSE 89; RESP 16; TEMP 37; O2SAT 98; BMI 31.1
--- NOTE | 2024-05-30 19:59 | ED.EYEPROB ---
HPI - Eye Problem General Chief complaint: Eye Problems Stated complaint: lt eye pain Time Seen by Provider: 05/30/24 19:42 Source: patient Mode of arrival: Ambulatory History of Present Illness HPI Narrative: 74-year-old female presents for evaluation of left eye pain for 3 hours. She noticed some pain and swelling in the outside of her left eye around her cheek. She was concerned that it may become infected over the weekend since she was a diabetic and decided to present for evaluation. Related Data Home Medications Medication Instructions Recorded Confirmed ResMed AirSense 10 Auto 07/11/22 03/12/24 cyanocobalamin (vitamin B-12) 500 mcg IM .Q2WEEK 09/18/22 03/12/24 1,000 mcg/mL injection solution insulin glargine 100 unit/mL (3 3 unit SUBCUT DAILY 11/11/23 03/12/24 mL) subcutaneous pen (Lantus Solostar U-100 Insulin) pen needle, diabetic 32 gauge x #1,200 ea 11/11/23 03/12/24 (BD Ultra-Fine Breana Pen Needle) semaglutide 1 mg/dose (4 mg/3 mL) 2 mg SUBCUT QWEEK 11/11/23 03/12/24 subcutaneous pen injector (Ozempic) Previous Rx's Medication Instructions Recorded insulin aspart U-100 100 unit/mL See Rx Instructions SUBCUT 07/20/22 (3 mL) subcutaneous pen (Novolog .COMPLEX #15 mL FlexPen U-100 Insulin aspart) levothyroxine 150 mcg tablet 150 mcg PO DAILY #90 tabs 05/13/23 trazodone 50 mg tablet 50 mg PO BEDTIME #90 tabs 07/22/23 zolpidem 10 mg tablet 5 mg (1/2 x 10 mg) PO BEDTIME PRN 01/21/24 insomnia #45 tabs lancets 33 gauge (OneTouch Delica #300 ea 02/07/24 Plus Lancet) Allergies Allergy/AdvReac Type Severity Reaction Status Date / Time dulaglutide [From Trulicity] Allergy rash Verified 03/12/24 13:34 glipizide AdvReac Intermediate leg pain Verified 03/12/24 13:34 empagliflozin AdvReac Mild yeast Verified 03/12/24 13:34 [From Jardiance] infection synthetic codeine AdvReac Nausea Uncoded 03/12/24 13:34 Patient History Medical History (Updated 05/30/24 @ 20:01 by Elizabeth Grace MD) Perineum pain, female COVID-19 Insomnia Cervical spondylosis with radiculopathy Acromioclavicular joint arthritis Impingement of both shoulders Arthritis of carpometacarpal (CMC) joint of right thumb Greater trochanteric bursitis of both hips Neck pain Shoulder pain Hip pain Anogenital lichen sclerosus Arthritis of carpometacarpal (CMC) joint of left thumb Obesity (BMI 30.0-34.9) Skin cancer (~2013) Plantar warts (~1959) Pneumonia Fractures (~2003) Carpal tunnel syndrome Mumps (~1950) Measles (~1950) Chicken pox (~1954) Seborrheic dermatitis Sleep apnea in adult (~2013) Seizure disorder (~2008) Chronic back pain Acquired hypothyroidism (~1998) Type 2 diabetes mellitus (~2003) Surgical History Anesthesia History of ectopic (~1976) History of ankle surgery (~2003) S/P tonsillectomy and adenoidectomy (~1955) S/P cataract extraction (~2016) Family History Father History of heart disease Sister Cancer Sister Diabetes mellitus Grandmother Stroke Grandmother History of heart disease Social History Smoking Status: Never smoker Smoking Status: Never smoker alcohol intake frequency: holidays/special occasions only Substance Use Type: does not use Exam Initial Vital Signs Initial Vital Signs: Vital Signs Temperature 98.6 F 05/30/24 19:38 Pulse Rate 89 05/30/24 19:38 Respiratory Rate 16 05/30/24 19:38 Blood Pressure 192/80 H 05/30/24 19:38 Pulse Oximetry 98 05/30/24 19:38 Oxygen Delivery Method Room Air 05/30/24 19:38 Const: Awake, alert, no acute distress, nontoxic appearing Eye: conjunctiva normal, PERRL, small stye inside of lateral L lower eyelid Skin: Warm, Dry, intact, no rashes Neuro: AO x3, CN II-XII grossly intact, moves all extremities Course Vital Signs Vital signs: Vital Signs - 8 hr 05/30/24 19:38 Temperature 98.6 F Pulse Rate 89 Respiratory Rate 16 Blood Pressure 192/80 H Pulse Oximetry 98 Oxygen Delivery Method Room Air MDM - Eye Problem MDM Narrative Medical decision making narrative: Pain in corner of left eye. Eye exam normal, there is a small stye on the inside of the lateral lower left lid. No surrounding warmth or erythema to suggest cellulitis. Patient counseled to use warm compresses. ED return precautions discussed. Discharge Plan Departure Patient Disposition: Home Clinical Impression: Hordeolum externum (stye) Instructions: DI for Hordeolum Activity Restrictions/Additional Instructions: You appear to have a stye on the outside of your left lower eyelid. These normally resolve on their own. Apply warm compresses multiple times per day to help the stye express itself. You may take Tylenol as needed for pain. If you notice redness, excessive warmth, or worsening swelling around your eye that is different from what you would expect from a warm compress please come back for repeat evaluation. Prescriptions: No Action insulin aspart U-100 [Novolog FlexPen U-100 Insulin] 100 unit/mL (3 mL) insulin pen See Rx Instructions SUBCUT .COMPLEX Qty: 15 1RF Rx Instructions: 1-12 units as per Sliding scale SUBCUT up to every four hours as necessary ; levothyroxine 150 mcg tablet 150 mcg PO DAILY Qty: 90 3RF zolpidem 10 mg tablet 5 mg PO BEDTIME PRN (Reason: insomnia) Qty: 45 0RF Hold Instructions: formulary issue (DME) lancets [OneTouch Delica Plus Lancet] 33 gauge misc See Rx Instructions .ROUTE .COMPLEX Qty: 300 3RF Dose Instruction: USE LANCETS TO TEST BLOOD SUGARS FOUR TIMES DAILY Rx Instructions: USE LANCETS TO TEST BLOOD SUGARS FOUR TIMES DAILY trazodone 50 mg tablet 50 mg PO BEDTIME Qty: 90 3RF cyanocobalamin (vitamin B-12) 1,000 mcg/mL solution 500 mcg IM .Q2WEEK Rx Instructions: Inject 500mcg every 2 weeks. Ozempic 1 mg/dose (4 mg/3 mL) pen injector 2 mg SUBCUT QWEEK Patient Comments: [NO ORIGINAL SIG] insulin glargine [Lantus Solostar U-100 Insulin] 100 unit/mL (3 mL) insulin pen 3 unit SUBCUT DAILY Patient Comments: [NO ORIGINAL SIG] (DME) pen needle, diabetic [BD Ultra-Fine Breana Pen Needle] 32 gauge x 5/32 needle See Rx Instructions .ROUTE .MEDSUPPLY Qty: 1200 Patient Comments: [NO ORIGINAL SIG] Rx Instructions: As directed (DME) ResMed AirSense 10 Auto See Rx Instructions .Route .MEDSUPPLY Rx Instructions: CPAP Min: 5 Max: 15 DME: LIZETT: 12.13.17 Referrals: Joesph Martinez MD [Primary Care Provider] - Stand Alone Forms: Patient Portal/API
== END 2024-05-30 20:08 | disposition home or self-care (01) ==
PROVIDERS: Emergency Provider Emergency Medicine; Family Provider Internal Medicine; PCP Internal Medicine
DX: H00.015 Hordeolum externum left lower eyelid (principal)
CPT/HCPCS: 99281; 99282

== ENCOUNTER → 2024-08-11 11:40 | Outpatient (CLI) | payer MEDICARE, SELFPAY ==
[2024-08-11 15:28] LABS: Influenza A - CEPHEID Flu A NEGATIVE (NEGATIVE); Influenza B - CEPHEID Flu B NEGATIVE (NEGATIVE); Respiratory Syncytial Virus Negative (Negative)
[2024-08-11 16:08] LABS: COVID-19 CEPHEID 4-PLEX PCR POSITIVE (Negative)
== END ==
PROVIDERS: Family Provider Internal Medicine; PCP Internal Medicine; Visit Provider Internal Medicine
DX: R05.9 Cough, unspecified (principal)
CPT/HCPCS: 0241U

== ENCOUNTER → 2024-09-04 10:08 | Outpatient (CLI) | payer MEDICARE, SELFPAY ==
[2024-09-04 11:03] LABS: Hemoglobin A1C% w Est Avg Glu 6.7 % (4.0-6.0)
[2024-09-04 11:38] LABS: Alanine Aminotransferase 37 IU/L (<35); Albumin 4.2 g/dL (3.5-5.0); Albumin Globulin Ratio 1.6 (1.0-2.8); Alkaline Phosphatase 92 U/L (38-126); Aspartate Aminotransferase 37 IU/L (14-36); BUN Creatinine Ratio 27.3 (6-22); Bilirubin Total 0.6 mg/dL (0.2-1.3); Blood Urea Nitrogen 18 mg/dL (7-17); Calcium 9.5 mg/dL (8.4-10.2); Carbon Dioxide 25 mmol/L (22-32); Chloride 105 mmol/L (98-107); Cholesterol 191 mg/dL (140-199); Estimated Glomerular Filt Rate > 60 mL/min (>60); Globulin 2.7 g/dL (1.7-4.1); Glucose 136 mg/dL (80-110); HDL Cholesterol 55 mg/dL (40-60); HEMOLYSIS 30 (0-50); LDL Cholesterol Calculated 118 mg/dL (<100); Potassium 4.7 mmol/L (3.4-5.1); Sodium 136 mmol/L (137-145); Total Protein 6.9 g/dL (6.3-8.2); Triglycerides 89 mg/dL (35-150)
[2024-09-04 12:28] LABS: Creatinine Urine Random 22.45 mg/dL
[2024-09-04 12:32] LABS: Microalbumin Urine Random < 0.6 mg/dL (0-1.6)
== END ==
PROVIDERS: Family Provider Internal Medicine; PCP Internal Medicine; Referring Provider Internal Medicine; Visit Provider Internal Medicine
DX: E11.9 Type 2 diabetes mellitus without complications (principal); G47.00 Insomnia, unspecified; M25.811 Other specified joint disorders, right shoulder; E78.5 Hyperlipidemia, unspecified; M25.519 Pain in unspecified shoulder; M25.812 Other specified joint disorders, left shoulder; R05.1 Acute cough; M62.08 Separation of muscle (nontraumatic), other site; K42.9 Umbilical hernia without obstruction or gangrene
CPT/HCPCS: 36415; 80053; 80061; 82043; 82570; 83036

== ENCOUNTER → 2024-09-29 16:43 | Outpatient (CLI) | payer MEDICARE, SELFPAY ==
[2024-09-29 17:43] LABS: Add Manual Diff / Slide Review NO; Basophils Absolute Auto 100 /uL (0-100); Basophils Percent Auto 0.7 % (0-2); Eosinophils Absolute Auto 200 /uL (0-450); Eosinophils Percent Auto 1.9 % (2-4); Hematocrit 37.2 % (36-46); Hemoglobin 12.5 g/dL (12.0-16.0); Lymphocytes Absolute Auto 2200 /uL (1100-4500); Lymphocytes Percent Auto 23.8 % (25-40); Mean Corpuscular HGB Conc 33.6 % (30-36); Mean Corpuscular Hemoglobin 30.2 PG (26-34); Mean Corpuscular Volume 89.9 fL (80-100); Monocytes Absolute Auto 400 /uL (0-900); Monocytes Percent Auto 4.7 % (3-14); Neutrophils Absolute Auto 6500 /uL (1500-7000); Neutrophils Percent Auto 68.9 % (50-75); Platelet Count 326 X10^3/uL (150-400); Red Blood Cell Count 4.14 X10^6/uL (4.0-5.2); Red Cell Distribution Width 13.8 % (11.6-14.8); White Blood Cell Count 9.4 X10^3/uL (4.5-11.0)
[2024-09-29 18:12] LABS: Alanine Aminotransferase 27 IU/L (<35); Albumin 4.3 g/dL (3.5-5.0); Albumin Globulin Ratio 1.6 (1.0-2.8); Alkaline Phosphatase 105 U/L (38-126); Amylase 53 U/L (30-110); Aspartate Aminotransferase 25 IU/L (14-36); BUN Creatinine Ratio 32.5 (6-22); Bilirubin Total 0.3 mg/dL (0.2-1.3); Blood Urea Nitrogen 26 mg/dL (7-17); Calcium 9.6 mg/dL (8.4-10.2); Carbon Dioxide 26 mmol/L (22-32); Chloride 104 mmol/L (98-107); Estimated Glomerular Filt Rate > 60 mL/min (>60); Globulin 2.7 g/dL (1.7-4.1); Glucose 114 mg/dL (80-110); HEMOLYSIS < 15 (0-50); Lipase 84 U/L (23-300); Potassium 4.3 mmol/L (3.4-5.1); Sodium 138 mmol/L (137-145)
== END ==
PROVIDERS: Family Provider Internal Medicine; PCP Internal Medicine; Referring Provider Internal Medicine; Visit Provider Internal Medicine
DX: R11.2 Nausea with vomiting, unspecified (principal); R10.11 Right upper quadrant pain
CPT/HCPCS: 36415; 80048; 80076; 82150; 83690; 85025

== ENCOUNTER → 2024-10-08 07:33 | Outpatient (CLI) | payer MEDICARE, SELFPAY ==
--- NOTE | 2024-10-08 07:34 | DI.US.S_ITS ---
PROCEDURE: US ABDOMEN LIMITED INDICATIONS: RIGHT UPPER QUADRANT PAIN TECHNIQUE: Real-time scanning was performed of the abdominal and retroperitoneal organs, with image documentation. COMPARISON: None. FINDINGS: Liver: Liver is at the upper limits of normal in size and homogeneous in echotexture, diffusely hyperechoic consistent with fatty infiltration direction of blood flow within the main portal vein is antegrade, with diameter at or just above the upper limits of normal at 15 mm. Gallbladder: No gallstones. No wall thickening. No pericholecystic edema. Negative sonographic Morton's sign. Biliary ducts: Intrahepatic bile ducts are non-dilated. Extrahepatic bile duct caliber measures 3.5 mm. Normal is 6-7 mm or less in diameter, or 10 mm or less post-cholecystectomy. Pancreas: Visualized portions of the pancreas are sonographically normal. Miscellaneous: No free abdominal fluid. IMPRESSION: Liver size is at the upper limits of normal. Portal vein diameter is at or just above the upper limits of normal. Suspect early portal hypertension developing. Diffuse fatty infiltration throughout the liver. No evidence of gallstones or biliary distension, however. Dictated by: Niranjan Brandt M.D. on 10/08/2024 at 9:21 Approved by: Niranjan Brandt M.D. on 10/08/2024 at 9:29
--- NOTE | 2024-10-08 07:34 | DI.MG.S_ITS ---
BILATERAL DIGITAL SCREENING MAMMOGRAM 3D/2D WITH CAD: 10/08/2024 CLINICAL: Routine screening. Comparison is made to exam dated: 09/12/2021 mammogram - [facility]. The breasts are almost entirely fatty (category a/<25% glandular tissue). Current study was also evaluated with a Computer Aided Detection (CAD) system. There are benign calcifications in the right breast. No significant masses, calcifications, or other findings are seen in either breast. There has been no significant interval change. IMPRESSION: BENIGN There is no mammographic evidence of malignancy. A 1 year screening mammogram is recommended. Based on the Tyrer Cuzick model (a risk assessment model) the patient's lifetime risk is 2.7% and her 10 year risk is 2.4%. According to the ACR, ACS, and NCCN guidelines, an annual breast MRI exam along with mammogram is recommended if the patient's lifetime risk is 20% or greater. This exam was interpreted at Station ID: [id number]. NOTE: For mammograms, a report in lay terms will be sent to the patient. Approximately 15% of breast malignancies will not be visualized mammographically. In the management of a palpable breast mass, a negative mammogram must not discourage biopsy of a clinically suspicious lesion. Electronically Signed By: Ann villasenor/alli:10/08/2024 09:45:47 letter sent: Normal Exam ACR BI-RADS Category 2: Benign
== END ==
PROVIDERS: Family Provider Internal Medicine; PCP Internal Medicine; Referring Provider Internal Medicine; Visit Provider Internal Medicine
DX: Z12.31 Encounter for screening mammogram for malignant neoplasm of breast (principal); R92.313 Mammographic fatty tissue density, bilateral breasts; K76.0 Fatty (change of) liver, not elsewhere classified; R10.11 Right upper quadrant pain; R11.2 Nausea with vomiting, unspecified
CPT/HCPCS: 76705; 77063; 77067

== ENCOUNTER → 2024-10-14 12:52 | Outpatient (CLI) | payer MEDICARE, SELFPAY ==
[2024-10-14 13:57] LABS: Influenza A - CEPHEID Flu A NEGATIVE (NEGATIVE); Influenza B - CEPHEID Flu B NEGATIVE (NEGATIVE); Respiratory Syncytial Virus Negative (Negative)
[2024-10-14 14:00] LABS: COVID-19 CEPHEID 4-PLEX PCR Negative (Negative)
== END ==
PROVIDERS: Family Provider Internal Medicine; PCP Internal Medicine; Visit Provider Physician Assistant Medical
DX: J02.9 Acute pharyngitis, unspecified (principal); R05.1 Acute cough
CPT/HCPCS: 0241U; 87070

== ENCOUNTER → 2024-11-19 14:53 | Outpatient (CLI) | payer MEDICARE, SELFPAY ==
[2024-11-19 16:20] LABS: BUN Creatinine Ratio 30.5 (6-22); Blood Urea Nitrogen 25 mg/dL (7-17); Estimated Glomerular Filt Rate > 60 mL/min (>60)
== END ==
PROVIDERS: Family Provider Internal Medicine; PCP Internal Medicine; Referring Provider Internal Medicine; Visit Provider Internal Medicine
DX: Z01.812 Encounter for preprocedural laboratory examination (principal)
CPT/HCPCS: 36415; 82565; 84520

== ENCOUNTER → 2024-11-25 09:54 | Outpatient (CLI) | payer MEDICARE, SELFPAY ==
--- NOTE | 2024-11-25 09:55 | DI.CT.S_ITS ---
PROCEDURE: CT ABDOMEN PELVIS W CON INDICATIONS: RUQ Pain TECHNIQUE: After the administration of intravenous contrast, axial sections acquired from the lung bases to the pubic symphysis. Coronal and sagittal reformats were performed. For radiation dose reduction, the following was used: automated exposure control, adjustment of mA and/or kV according to patient size. COMPARISON: None. FINDINGS: Image quality: Diagnostic. Lower Chest: No significant findings. ABDOMEN: Liver: No solid mass. The liver is enlarged, measuring 21 cm in craniocaudal diameter. Patent portal vein. Gallbladder: No radiopaque gallstones or wall thickening. Biliary ducts: No biliary dilation. Pancreas: No ductal dilation. Spleen: Size is within normal limits. Adrenal Glands: No adrenal nodules. Kidneys and Ureters: No hydronephrosis. No solid mass. No complex renal cystic lesion which requires follow up. Stomach and Bowel: The appendix demonstrates mild distension and wall thickening, measuring a maximum diameter of 1.4 cm. There is a thick wall mid segment. Very mild periappendiceal fat stranding. Normal wall enhancement. Colonic interposition between the liver and hemidiaphragm. Peritoneum: No abnormal intraperitoneal fluid. No free air. Ventral Wall: No significant ventral hernia. Abdominal Nodes: No retroperitoneal or mesenteric adenopathy by size criteria. Vessels: Aorta and inferior vena cava are normal in size. PELVIS: Pelvic Organs: Unremarkable. Bladder: No bladder wall thickening, accounting for underdistention. Pelvic Nodes: No enlarged lymph nodes. Miscellaneous: No inguinal hernias are seen. Dilated gonadal vasculature, which can be seen in the setting of pelvic congestion syndrome. Bones: No aggressive osseous abnormality. IMPRESSION: The appendix is mildly dilated, with a short segment of wall thickening and trace periappendiceal fat stranding. No evidence of rupture. Given history chronic right upper quadrant pain, findings could represent subacute appendicitis without rupture. Correlate with CBC. If elevated, recommend emergent surgical referral. If not elevated, outpatient surgical referral could be considered. Colonic interposition between the liver and hemidiaphragm, which can be symptomatic. Hepatomegaly. Call report was initiated for this examination. The ordering provider will be notified of the results shortly after dictation. Dictated by: Félix Mohamud M.D. on 11/25/2024 at 13:07 Approved by: Félix Mohamud M.D. on 11/25/2024 at 13:20
== END ==
PROVIDERS: Family Provider Internal Medicine; PCP Internal Medicine; Referring Provider Internal Medicine; Visit Provider Internal Medicine
DX: E03.9 Hypothyroidism, unspecified (principal); R16.0 Hepatomegaly, not elsewhere classified; R10.11 Right upper quadrant pain; E11.9 Type 2 diabetes mellitus without complications; Z79.4 Long term (current) use of insulin
CPT/HCPCS: 74177; Q9967

== ENCOUNTER 2024-12-24 10:45 | Outpatient (RCR) | payer MEDICARE, SELFPAY ==
--- NOTE | 2024-10-12 16:16 | PT.OIE ---
Current Diagnoses Bilateral primary osteoarthritis of hip (10/12/24) Pain in right hip (10/12/24) Pain in left hip (10/12/24) Spondylosis without myelopathy or radiculopathy, lumbar region (10/12/24) Past Medical History (Last Updated 09/11/24 @ 15:40 by Joesph Martinez MD) Acquired hypothyroidism (~1998) Acromioclavicular joint arthritis Anogenital lichen sclerosus Arthritis of carpometacarpal (CMC) joint of left thumb Arthritis of carpometacarpal (CMC) joint of right thumb Carpal tunnel syndrome Cervical spondylosis with radiculopathy Chicken pox (~1954) Chronic back pain COVID-19 Fractures (~2003) Greater trochanteric bursitis of both hips Hip pain Impingement of both shoulders Insomnia Measles (~1950) Mumps (~1950) Neck pain Obesity (BMI 30.0-34.9) Osteoarthritis, knee Perineum pain, female Plantar warts (~1959) Pneumonia Seborrheic dermatitis Seizure disorder (~2008) Shoulder pain Skin cancer (~2013) Sleep apnea in adult (~2013) Type 2 diabetes mellitus (~2003) Past Surgical History (Last Reviewed 11/11/23 @ 14:03 by Tyler Mullen DO) Anesthesia History of ankle surgery (~2003) History of ectopic (~1976) S/P cataract extraction (~2016) S/P tonsillectomy and adenoidectomy (~1955) Visit Care Team Role Provider Type Joesph Martinez MD Family Provider Physician Primary Care Provider Specialty: Internal Medicine Address: [address] [place] [address], [facility] [address], [address] Email: [email or web address] Vish Bills DO Attending Provider Non-Staff Referring Provider Specialty: Orthopedics Address: [address] [place] [address], [id number] Email: Physical Therapy Initial Evaluation PT-OP-A Visit Information Start: 10/07/24 16:49 Freq: Status: Active Protocol: Document 10/12/24 13:02 [facility] (Rec: 10/12/24 13:42 [facility] [id number]) Out-Patient Physical Therapy Visit Information Visit Information Visit Type Initial Evaluation Visit Start Time 13:02 Visit Stop Time 13:47 Visit Number 1 (11/06 IE) Number of CLINICAL RESEARCH NURSE Visits 0 PT-OP-B Current Condition Start: 10/07/24 16:49 Freq: Status: Active Protocol: Document 10/12/24 13:02 [facility] (Rec: 10/12/24 13:42 [facility] [id number]) Current Condition History of Current Condition Onset Date 1 year or more Current Complaints LBP, L hip pain, B knee pain History of Current Condition Pt reports she just had assessments on her knees from ortho and said she could have replacement but could wait until has more pain. They aren 't bothering her too much. She wants strength for her knees to avoid gving out and avoid surgery. Whenever she goes for a walk w/ and her back hurts. She can sit down for 3 -5 min then can keep walking, or when doing dishes for 10-15 min, back will start bothering her (LS). Been noticing the past 4-6 months sitting a while, kala will get pain in L ant hip. Was told she does have some arthritis in hips. Last year saw Rosio and has been going to [employer] gym and use the resistance machines for shoulder then it keeps the shoulders functional. When she walks it is a max of 30 min d/t her back tolerance (after 15 min starts to feel uncomfortable). Has been for about a year. Occ times she goes longer and feels okay, but unsure why it sometimes doesnt bother her but now happening more regularly. [facility], used to go for 1-1.5 hr hikes . Occ w/up/down hills, R knee feels painful and weak/gives out. ON the way down last year going down hill, R knee gave out and had to grab ahold of . has leg length difference. Wear 1/2 in lift in L side and wears custom insoles PMH: diabetes, neuropathy ( minor), thyroid disorder, 2 seizures in 2008 and was on meds short time only. Treatment Goals Patient/Caregiver Goals improved walking (be able to do hour walks occasionally) without pain and standing tolerance, improve strength and extend life of B knees PT-OP-C Subjective Start: 10/07/24 16:49 Freq: Status: Active Protocol: Document 10/12/24 13:02 [facility] (Rec: 10/12/24 16:16 [facility] [id number]) Patient Questionnaires Lower Extremity Functional Scale LEFS Score 45/80 PT-OP-D Balance Start: 10/07/24 16:49 Freq: Status: Active Protocol: Document 10/12/24 13:02 [facility] (Rec: 10/12/24 13:42 [id number] Balance Tests Single Limb Standing Single Limb- Right 3 sec, significant hip drop Single Limb- Left 4 sec PT-OP-G Mobility & Gait Start: 10/07/24 16:49 Freq: Status: Active Protocol: Document 10/12/24 13:02 [facility] (Rec: 10/12/24 13:42 [id number] OP Gait Assessment Comments Gait Comments dec RLE stance time, lat lean B, R trendelenburg, stiff in upper body PT-OP-J Posture/Palpation/Skin Start: 10/07/24 16:49 Freq: Status: Active Protocol: Document 10/12/24 13:02 [facility] (Rec: 10/12/24 13:42 [id number]) Posture Evaluation Jillian Postural Classification System Jillian Postural Classifications Posterior/Anterior Vertical Compression Test 1 Lumbar Protective Mechanism Left AP 0 Lumbar Protective Mechanism Right AP 0 Lumbar Protective Mechanism Left PA 2 Lumbar Protective Mechanism Right PA 4 Comments Posture Comments toe out of L foot, IR B femur, ER tibia, inc kyphosis, fwd head PT-OP-K Range of Motion Start: 10/07/24 16:49 Freq: Status: Active Protocol: Document 10/12/24 13:02 [facility] (Rec: 10/12/24 13:42 [facility] [id number]) Lumbar Spine Range of Motion Lumbar Spine Active Percentage Flexion 20 Extension 50 Rotation Left 35 Rotation Right 50 Lateral Flexion Left 70 Lateral Flexion Right 60 Comments to midshins w/flex w/hips; blocked hips to upper mid thighs, stiffness w/flex; pinching R>L SB, pain in abdomen w/r rot PT-OP-L Special Tests Start: 10/07/24 16:49 Freq: Status: Active Protocol: Document 10/12/24 13:02 [facility] (Rec: 10/12/24 13:42 [facility] [id number]) Special Tests Lumbar Spine Special Tests march Test Results pos Slump Test Results neg PT-OP-M Strength Start: 10/12/24 13:40 Freq: Status: Active Protocol: Document 10/12/24 13:02 [facility] (Rec: 10/12/24 14:35 [facility] [id number]) Hip Strength Hip Manual Muscle Testing Right Flexion (L2) 3+ Fair+ Extension (S1) 3+ Fair+ Abduction 3+ Fair+ External Rotation 3+ Fair+ Internal Rotation 4+ Good+ Left Flexion (L2) 3+ Fair+ Extension (S1) 3+ Fair+ Abduction 4 Good External Rotation 3+ Fair+ Internal Rotation 4+ Good+ Knee Strength Knee Manual Muscle Testing Right Flexion (S2) 5 Normal Extension (L3) 4 Good Left Flexion (S2) 5 Normal Extension (L3) 4 Good Ankle/Foot Strength Ankle and Foot Manual Muscle Testing B Dorsiflexion (L4) 5 Normal Plantarflexion (S1) 5 Normal PT-OP-Q Treatments Start: 10/07/24 16:49 Freq: Status: Active Protocol: Document 10/12/24 13:02 [facility] (Rec: 10/12/24 14:35 [facility] [id number]) Self-Care/Home Management Treatment Education Other Education 10 min: edu glute med weakenss likely affecting her gait based on MMT and gait pattern also inc pressure to LB and knee. Edu that weakness overall R>L also an issue along w/innominate dysfunction and leg length difference. PT-OP-T Assessment and Plan Start: 10/07/24 16:49 Freq: Status: Active Protocol: Document 10/12/24 13:02 [facility] (Rec: 10/12/24 13:42 [facility] [id number]) Physical Therapy Assessment Rehab Potential Rehabilitation Potential Good Evaluation Complexity Number of Personal Factors/Comorbidities 3 or More Number of Body Systems Impaired 4 or More Clinical Presentation at Evaluation Evolving Impairments Impairments Activity Tolerance,Balance, Functional Activities, Functional Mobility,Gait,Pain, Posture,ROM,Soft Tissue Mobility,Strength,Transfers Goals Six Impairment strength Short Term Goal (STG) Pt will be indep w/HEP STG Duration 11/13 Hospice Nurse Goal (LTG) Pt will score at least 3/5 on LPM and at least 4+/5 on all BLE MMT to allow greater ease w/typical activities LTG Duration 12/22 Five Impairment walking only max 30 min RT Short Term Goal (STG) Pt will be able to do 30 min RT walk w/o pain >3/10 STG Duration 11/11 Hospice Nurse Goal (LTG) Pt will be able to do occasional 45 min to 1 hour walks w/small hills w/o pain greater than 2/10 in back or knees LTG Duration 12/22 Four Hospice Nurse Goal (LTG) Pt will be able to stand as needed in kitchen w/o pain in back/knees >2/10 LTG Duration 12/22 Assessment Summary Assessment Pt presents w/LBP and R>L knee pain that limits her standing and walking along w/uneven surfaces. She does have uneven innominate and leg length discepency likely contributing to her pain but does have a lift. She does have BLE weakness and core weakness along w/postural imbalances causing pain. Pt would benefit from skilled PT to address these deficiencies. Physical Therapy Plan Frequency and Duration Frequency of Treatment 2x/Week Duration of treatment (weeks) 10 Plan of Care Start Date 10/12/24 Plan of Care End Date 12/22/24 Therapeutic Interventions Therapeutic Interventions Balance Training,Home Exercise Program,Joint Mobilizations, Manual Therapy,Neuromuscular Re-education,Patient/Caregiver Education,Self-Care/Home Management,Soft Tissue Mobilization,Taping, Therapeutic Activities, Therapeutic Exercises Modalities Cold Pack/Ice Massage,Electric Stimulation,Hot Packs Next Visit Focus/Plan Next Note Type Treatment Note Next Visit Plan HEP: sit to stands, supine/ standing core, hip stretches & hip stength standing manual to innominate and B hips and knees, STM to LB
--- NOTE | 2024-10-12 16:16 | PT.OPPOC ---
Physical, Occupational & Speech Therapy At [facility] Current Diagnoses Bilateral primary osteoarthritis of hip (10/12/24) Pain in right hip (10/12/24) Pain in left hip (10/12/24) Spondylosis without myelopathy or radiculopathy, lumbar region (10/12/24) Visit Care Team Role Provider Type Joesph Martinez MD Family Provider Physician Primary Care Provider Specialty: Internal Medicine Address: [address] [place] [address], [facility] [address], [place], [address] Email: [email or web address] Vsih Bills DO Attending Provider Non-Staff Referring Provider Specialty: Orthopedics Address: [address] [place] [address], [id number] Email: Plan Of Care PT-OP-B Current Condition Start: 10/07/24 16:49 Freq: Status: Active Protocol: Document 10/12/24 13:02 [facility] (Rec: 10/12/24 13:42 [facility] [id number]) Current Condition History of Current Condition Onset Date 1 year or more Current Complaints LBP, L hip pain, B knee pain History of Current Condition Pt reports she just had assessments on her knees from ortho and said she could have replacement but could wait until has more pain. They aren 't bothering her too much. She wants strength for her knees to avoid gving out and avoid surgery. Whenever she goes for a walk w/ and her back hurts. She can sit down for 3 -5 min then can keep walking, or when doing dishes for 10-15 min, back will start bothering her (LS). Been noticing the past 4-6 months sitting a while, kala will get pain in L ant hip. Was told she does have some arthritis in hips. Last year saw Rosio and has been going to [employer] and use the resistance machines for shoulder then it keeps the shoulders functional. When she walks it is a max of 30 min d/t her back tolerance (after 15 min starts to feel uncomfortable). Has been for about a year. Occ times she goes longer and feels okay, but unsure why it sometimes doesnt bother her but now happening more regularly. When first move [place] 5 years ago, used to go for 1-1.5 hr hikes . Occ w/up/down hills, R knee feels painful and weak/gives out. ON the way down last year going down hill, R knee gave out and had to grab ahold of . has leg length difference. Wear 1/2 in lift in L side and wears custom insoles PMH: diabetes, neuropathy ( minor), thyroid disorder, 2 seizures in 2008 and was on meds short time only. Treatment Goals Patient/Caregiver Goals improved walking (be able to do hour walks occasionally) without pain and standing tolerance, improve strength and extend life of B knees PT-OP-T Assessment and Plan Start: 10/07/24 16:49 Freq: Status: Active Protocol: Document 10/12/24 13:02 [facility] (Rec: 10/12/24 13:42 [facility] [id number]) Physical Therapy Assessment Rehab Potential Rehabilitation Potential Good Evaluation Complexity Number of Personal Factors/Comorbidities 3 or More Number of Body Systems Impaired 4 or More Clinical Presentation at Evaluation Evolving Impairments Impairments Activity Tolerance,Balance, Functional Activities, Functional Mobility,Gait,Pain, Posture,ROM,Soft Tissue Mobility,Strength,Transfers Goals Six Impairment strength Short Term Goal (STG) Pt will be indep w/HEP STG Duration 11/13 Correction Goal (LTG) Pt will score at least 3/5 on LPM and at least 4+/5 on all BLE MMT to allow greater ease w/typical activities LTG Duration 12/22 Five Impairment walking only max 30 min RT Short Term Goal (STG) Pt will be able to do 30 min RT walk w/o pain >3/10 STG Duration 11/11 Exhibit Artist Goal (LTG) Pt will be able to do occasional 45 min to 1 hour walks w/small hills w/o pain greater than 2/10 in back or knees LTG Duration 12/22 Four Correction Goal (LTG) Pt will be able to stand as needed in kitchen w/o pain in back/knees >2/10 LTG Duration 12/22 Assessment Summary Assessment Pt presents w/LBP and R>L knee pain that limits her standing and walking along w/uneven surfaces. She does have uneven innominate and leg length discepency likely contributing to her pain but does have a lift. She does have BLE weakness and core weakness along w/postural imbalances causing pain. Pt would benefit from skilled PT to address these deficiencies. Physical Therapy Plan Frequency and Duration Frequency of Treatment 2x/Week Duration of treatment (weeks) 10 Plan of Care Start Date 10/12/24 Plan of Care End Date 12/22/24 Therapeutic Interventions Therapeutic Interventions Balance Training,Home Exercise Program,Joint Mobilizations, Manual Therapy,Neuromuscular Re-education,Patient/Caregiver Education,Self-Care/Home Management,Soft Tissue Mobilization,Taping, Therapeutic Activities, Therapeutic Exercises Modalities Cold Pack/Ice Massage,Electric Stimulation,Hot Packs Next Visit Focus/Plan Next Note Type Treatment Note Next Visit Plan HEP: sit to stands, supine/ standing core, hip stretches & hip stength standing manual to innominate and B hips and knees, STM to LB Plan of Care Dates Plan of Care Start Date 10/12/24 Plan of Care End Date 12/22/24 Electronically Signed by: Kristie Fajardo, PT 10/13/24 4745 If you are in agreement with this Plan of Care, please return a signed and dated copy. I have reviewed this Plan of Care and certify that the skilled therapy services above are required to meet the patient?s needs. Physician Signature Date Printed Name and Credentials Clinical Instructor Signature Printed Name and Credentials
--- NOTE | 2024-10-19 14:40 | PT-OP ANOTE ---
Pt did not for today's appt. MOLD SHAKER called to discussed missed appt, pt stated has been sick and why needing to cancel past 2 appts. She was disappointed forgot about today's appt and even looked at the paper of appts on her table. She stated was looking forward to learning exercises to do at home. MOLD SHAKER discussed TA engagement with heel slides supine and sit to stand maintain knees apart with TA engaged. SHe confirmed will be at appt at 730.
--- NOTE | 2024-10-22 09:37 | PT.OTN ---
Current Diagnoses Bilateral primary osteoarthritis of hip (10/22/24) Pain in right hip (10/22/24) Pain in left hip (10/22/24) Spondylosis without myelopathy or radiculopathy, lumbar region (10/22/24) Physical Therapy Treatment Note PT-OP-A Visit Information Start: 10/07/24 16:49 Freq: Status: Active Protocol: Document 10/22/24 07:32 [facility] (Rec: 10/22/24 09:37 [facility] [id number]) Out-Patient Physical Therapy Visit Information Visit Information Visit Type Treatment Note Visit Start Time 07:35 Visit Stop Time 08:15 Visit Number 2 (12/07 IE) Number of ROUSTABOUT SUPERVISOR Visits 0 PT-OP-B Current Condition Start: 10/07/24 16:49 Freq: Status: Active Protocol: Document 10/12/24 13:02 [facility] (Rec: 10/12/24 13:42 [facility] [id number]) Current Condition History of Current Condition Onset Date 1 year or more Current Complaints LBP, L hip pain, B knee pain History of Current Condition Pt reports she just had assessments on her knees from ortho and said she could have replacement but could wait until has more pain. They aren 't bothering her too much. She wants strength for her knees to avoid gving out and avoid surgery. Whenever she goes for a walk w/ and her back hurts. She can sit down for 3 -5 min then can keep walking, or when doing dishes for 10-15 min, back will start bothering her (LS). Been noticing the past 4-6 months sitting a while, kala will get pain in L ant hip. Was told she does have some arthritis in hips. Last year saw Rosio and has been going to [employer] [facility] and use the resistance machines for shoulder then it keeps the shoulders functional. When she walks it is a max of 30 min d/t her back tolerance (after 15 min starts to feel uncomfortable). Has been for about a year. Occ times she goes longer and feels okay, but unsure why it sometimes doesnt bother her but now happening more regularly. When first move [facility] 5 years ago, used to go for 1-1.5 hr hikes . Occ w/up/down hills, R knee feels painful and weak/gives out. ON the way down last year going down hill, R knee gave out and had to grab ahold of . has leg length difference. Wear 1/2 in lift in L side and wears custom insoles PMH: diabetes, neuropathy ( minor), thyroid disorder, 2 seizures in 2009 and was on meds short time only. Treatment Goals Patient/Caregiver Goals improved walking (be able to do hour walks occasionally) without pain and standing tolerance, improve strength and extend life of B knees PT-OP-C Subjective Start: 10/07/24 16:49 Freq: Status: Active Protocol: Document 10/22/24 07:32 [facility] (Rec: 10/22/24 09:37 [facility] [id number]) OP-PT Subjective Patient Comments Patient Comments pt brought a folder of exercises given in PT for prior times PT-OP-D Balance Start: 10/07/24 16:49 Freq: Status: Active Protocol: Document 10/12/24 13:02 [facility] (Rec: 10/12/24 13:42 [facility] [id number]) Balance Tests Single Limb Standing Single Limb- Right 3 sec, significant hip drop Single Limb- Left 4 sec PT-OP-G Mobility & Gait Start: 10/07/24 16:49 Freq: Status: Active Protocol: Document 10/12/24 13:02 [facility] (Rec: 10/12/24 13:42 [id number] OP Gait Assessment Comments Gait Comments dec RLE stance time, lat lean B, R trendelenburg, stiff in upper body PT-OP-J Posture/Palpation/Skin Start: 10/07/24 16:49 Freq: Status: Active Protocol: Document 10/12/24 13:02 [facility] (Rec: 10/12/24 13:42 [facility] [id number]) Posture Evaluation Jillian Postural Classification System Jillian Postural Classifications Posterior/Anterior Vertical Compression Test 1 Lumbar Protective Mechanism Left AP 0 Lumbar Protective Mechanism Right AP 0 Lumbar Protective Mechanism Left PA 2 Lumbar Protective Mechanism Right PA 4 Comments Posture Comments toe out of L foot, IR B femur, ER tibia, inc kyphosis, fwd head PT-OP-K Range of Motion Start: 10/07/24 16:49 Freq: Status: Active Protocol: Document 10/12/24 13:02 [facility] (Rec: 10/12/24 13:42 [facility] [id number]) Lumbar Spine Range of Motion Lumbar Spine Active Percentage Flexion 20 Extension 50 Rotation Left 35 Rotation Right 50 Lateral Flexion Left 70 Lateral Flexion Right 60 Comments to midshins w/flex w/hips; blocked hips to upper mid thighs, stiffness w/flex; pinching R>L SB, pain in abdomen w/r rot PT-OP-L Special Tests Start: 10/07/24 16:49 Freq: Status: Active Protocol: Document 10/12/24 13:02 [facility] (Rec: 10/12/24 13:42 [facility] [id number]) Special Tests Lumbar Spine Special Tests march Test Results pos Slump Test Results neg PT-OP-M Strength Start: 10/12/24 13:40 Freq: Status: Active Protocol: Document 10/12/24 13:02 [facility] (Rec: 10/12/24 14:35 [facility] [id number]) Hip Strength Hip Manual Muscle Testing Right Flexion (L2) 3+ Fair+ Extension (S1) 3+ Fair+ Abduction 3+ Fair+ External Rotation 3+ Fair+ Internal Rotation 4+ Good+ Left Flexion (L2) 3+ Fair+ Extension (S1) 3+ Fair+ Abduction 4 Good External Rotation 3+ Fair+ Internal Rotation 4+ Good+ Knee Strength Knee Manual Muscle Testing Right Flexion (S2) 5 Normal Extension (L3) 4 Good Left Flexion (S2) 5 Normal Extension (L3) 4 Good Ankle/Foot Strength Ankle and Foot Manual Muscle Testing B Dorsiflexion (L4) 5 Normal Plantarflexion (S1) 5 Normal PT-OP-Q Treatments Start: 10/07/24 16:49 Freq: Status: Active Protocol: Document 10/22/24 07:32 [facility] (Rec: 10/22/24 09:37 [facility] [id number]) Therapeutic Exercises Supine Exercises LTR Side bilateral Reps/Minutes 10 Comments cues comfortable range and core to lift knees back up bridge Side bilateral Reps/Minutes 10 Comments segmental stretch Supine Exercise Name piriformis Side bilateral Reps/Minutes 30 sec Standing Exercises sidesteps Side bilateral Equipment Used L1 at ankles Reps/Minutes 15ft sit to stand Side bilateral Equipment Used L1 at knees Reps/Minutes 12 Manual Therapy Treatment Consent Patient gave verbal consent for manual Yes treatment Joint Mobilizations hip Body Position Hooklying Comments L inf, free the ball IR and ER c/r PT-OP-T Assessment and Plan Start: 10/07/24 16:49 Freq: Status: Active Protocol: Document 10/22/24 07:32 [facility] (Rec: 10/22/24 09:37 [facility] [id number]) Physical Therapy Assessment Goals Six Impairment strength Short Term Goal (STG) Pt will be indep w/HEP STG Duration 11/13 Councilor Goal (LTG) Pt will score at least 3/5 on LPM and at least 4+/5 on all BLE MMT to allow greater ease w/typical activities LTG Duration 12/22 Five Impairment walking only max 30 min RT Short Term Goal (STG) Pt will be able to do 30 min RT walk w/o pain >3/10 STG Duration 11/11 Half-Way Goal (LTG) Pt will be able to do occasional 45 min to 1 hour walks w/small hills w/o pain greater than 2/10 in back or knees LTG Duration 12/22 Four Impairment Walks 15' before LB starts to feel uncomfortable. Half-Way Goal (LTG) Pt will be able to stand as needed in kitchen w/o pain in back/knees >2/10 LTG Duration 12/22 Assessment Summary Assessment Pt did well with exercises w/ cueing and education for use of exercises. She does fatigue w/exercises and did well with pacing after cues. Pt reports feeling more movement in LLE after manual and did have improved hip flex and IR/ER Physical Therapy Plan Next Visit Focus/Plan Next Note Type Treatment Note Next Visit Plan review HEP; advance hip strength and mobility as able manual to innominte, B hips and knees and STM to LB
--- NOTE | 2024-11-10 12:17 | PT.OTN ---
Current Diagnoses Bilateral primary osteoarthritis of hip (11/10/24) Pain in right hip (11/10/24) Pain in left hip (11/10/24) Spondylosis without myelopathy or radiculopathy, lumbar region (11/10/24) Physical Therapy Treatment Note PT-OP-A Visit Information Start: 10/07/24 16:49 Freq: Status: Active Protocol: Document 11/10/24 11:41 SP (Rec: 11/10/24 12:31 SP [id number]) Out-Patient Physical Therapy Visit Information Visit Information Visit Type Treatment Note Visit Start Time 11:41 Visit Stop Time 12:17 Visit Number 3 (01/04 IE) Number of CLERICAL ORDER FILLER Visits 1 PT-OP-B Current Condition Start: 10/07/24 16:49 Freq: Status: Active Protocol: Document 10/12/24 13:02 [facility] (Rec: 10/12/24 13:42 [facility] [id number]) Current Condition History of Current Condition Onset Date 1 year or more Current Complaints LBP, L hip pain, B knee pain History of Current Condition Pt reports she just had assessments on her knees from ortho and said she could have replacement but could wait until has more pain. They aren 't bothering her too much. She wants strength for her knees to avoid gving out and avoid surgery. Whenever she goes for a walk w/ and her back hurts. She can sit down for 3 -5 min then can keep walking, or when doing dishes for 10-15 min, back will start bothering her (LS). Been noticing the past 4-6 months sitting a while, kala will get pain in L ant hip. Was told she does have some arthritis in hips. Last year saw Rosio and has been going to [employer] [facility] and use the resistance machines for shoulder then it keeps the shoulders functional. When she walks it is a max of 30 min d/t her back tolerance (after 15 min starts to feel uncomfortable). Has been for about a year. Occ times she goes longer and feels okay, but unsure why it sometimes doesnt bother her but now happening more regularly. When first move [facility], used to go for 1-1.5 hr hikes . Occ w/up/down hills, R knee feels painful and weak/gives out. ON the way down last year going down hill, R knee gave out and had to grab ahold of . has leg length difference. Wear 1/2 in lift in L side and wears custom insoles PMH: diabetes, neuropathy ( minor), thyroid disorder, 2 seizures in 2009 and was on meds short time only. Treatment Goals Patient/Caregiver Goals improved walking (be able to do hour walks occasionally) without pain and standing tolerance, improve strength and extend life of B knees PT-OP-C Subjective Start: 10/07/24 16:49 Freq: Status: Active Protocol: Document 11/10/24 11:41 SP (Rec: 11/10/24 12:31 SP [id number]) OP-PT Subjective Patient Comments Patient Comments Pt 11 min late for appt. She reports wants copy of diagnosis code for billing reimbursement. She wants to know what machines can do at [employer] [facility]. Was at [facility] but they closed. PT-OP-D Balance Start: 10/07/24 16:49 Freq: Status: Active Protocol: Document 10/12/24 13:02 [facility] (Rec: 10/12/24 13:42 [facility] [id number]) Balance Tests Single Limb Standing Single Limb- Right 3 sec, significant hip drop Single Limb- Left 4 sec PT-OP-G Mobility & Gait Start: 10/07/24 16:49 Freq: Status: Active Protocol: Document 10/12/24 13:02 [facility] (Rec: 10/12/24 13:42 [facility] [id number]) OP Gait Assessment Comments Gait Comments dec RLE stance time, lat lean B, R trendelenburg, stiff in upper body PT-OP-J Posture/Palpation/Skin Start: 10/07/24 16:49 Freq: Status: Active Protocol: Document 10/12/24 13:02 [facility] (Rec: 10/12/24 13:42 [facility] [id number]) Posture Evaluation Jillian Postural Classification System Jillian Postural Classifications Posterior/Anterior Vertical Compression Test 1 Lumbar Protective Mechanism Left AP 0 Lumbar Protective Mechanism Right AP 0 Lumbar Protective Mechanism Left PA 2 Lumbar Protective Mechanism Right PA 4 Comments Posture Comments toe out of L foot, IR B femur, ER tibia, inc kyphosis, fwd head PT-OP-K Range of Motion Start: 10/07/24 16:49 Freq: Status: Active Protocol: Document 10/12/24 13:02 [facility] (Rec: 10/12/24 13:42 [facility] [id number]) Lumbar Spine Range of Motion Lumbar Spine Active Percentage Flexion 20 Extension 50 Rotation Left 35 Rotation Right 50 Lateral Flexion Left 70 Lateral Flexion Right 60 Comments to midshins w/flex w/hips; blocked hips to upper mid thighs, stiffness w/flex; pinching R>L SB, pain in abdomen w/r rot PT-OP-L Special Tests Start: 10/07/24 16:49 Freq: Status: Active Protocol: Document 10/12/24 13:02 [facility] (Rec: 10/12/24 13:42 [facility] [id number]) Special Tests Lumbar Spine Special Tests march Test Results pos Slump Test Results neg PT-OP-M Strength Start: 10/12/24 13:40 Freq: Status: Active Protocol: Document 10/12/24 13:02 [facility] (Rec: 10/12/24 14:35 [facility] [id number]) Hip Strength Hip Manual Muscle Testing Right Flexion (L2) 3+ Fair+ Extension (S1) 3+ Fair+ Abduction 3+ Fair+ External Rotation 3+ Fair+ Internal Rotation 4+ Good+ Left Flexion (L2) 3+ Fair+ Extension (S1) 3+ Fair+ Abduction 4 Good External Rotation 3+ Fair+ Internal Rotation 4+ Good+ Knee Strength Knee Manual Muscle Testing Right Flexion (S2) 5 Normal Extension (L3) 4 Good Left Flexion (S2) 5 Normal Extension (L3) 4 Good Ankle/Foot Strength Ankle and Foot Manual Muscle Testing B Dorsiflexion (L4) 5 Normal Plantarflexion (S1) 5 Normal PT-OP-Q Treatments Start: 10/07/24 16:49 Freq: Status: Active Protocol: Document 11/10/24 11:41 SP (Rec: 11/10/24 12:31 SP [id number]) Gym Equipment Cable Column (Body Solid) Leg Curl Resistance 3 plates Reps/Time 10 reps Leg Extension Resistance 2>1 plate Reps/Time 5 reps> 10 reps Hip Adduction Resistance 3 plates Reps/Time slow pacing, painfree range Hip Abduction Resistance 2 plates Reps/Time cued slow Manual Therapy Treatment Consent Patient gave verbal consent for manual Yes treatment Joint Mobilizations hip Body Position Hooklying Comments Hooklying: L inf, free the ball IR and ER c/r Prone: L on axis, hip IR/ ER AAROM. PT-OP-T Assessment and Plan Start: 10/07/24 16:49 Freq: Status: Active Protocol: Document 11/10/24 11:41 SP (Rec: 11/10/24 12:31 SP [id number]) Physical Therapy Assessment Goals Six Impairment strength Short Term Goal (STG) Pt will be indep w/HEP STG Duration 11/13 Electric Truck Driver Goal (LTG) Pt will score at least 3/5 on LPM and at least 4+/5 on all BLE MMT to allow greater ease w/typical activities LTG Duration 12/22 Five Impairment walking only max 30 min RT Short Term Goal (STG) Pt will be able to do 30 min RT walk w/o pain >3/10 STG Duration 11/11 Electric Truck Driver Goal (LTG) Pt will be able to do occasional 45 min to 1 hour walks w/small hills w/o pain greater than 2/10 in back or knees LTG Duration 12/22 Four Impairment Walks 15' before LB starts to feel uncomfortable. Electric Truck Driver Goal (LTG) Pt will be able to stand as needed in kitchen w/o pain in back/knees >2/10 LTG Duration 12/22 Assessment Summary Assessment Assisted instruction with pt on use of gym equipment familiarization for complimenting machines fo rBLEs to support strengthening at [facility] but education on meeing with staff member for particular use theirs for safety. Ed not to replace ther ex HEP given in PT to do home . Pt felt better use and understanding machines will help do similar strengthening but verbalized understanding still needs to do HEP verbal review. Will take more time next tx HEP. She reports less tightness and tiring BLEs. Physical Therapy Plan Frequency and Duration Frequency of Treatment 2x/Week Duration of treatment (weeks) 10 Plan of Care Start Date 10/12/24 Plan of Care End Date 12/22/24 Therapeutic Interventions Therapeutic Interventions Balance Training,Home Exercise Program,Joint Mobilizations, Manual Therapy,Neuromuscular Re-education,Patient/Caregiver Education,Self-Care/Home Management,Soft Tissue Mobilization,Taping, Therapeutic Activities, Therapeutic Exercises Modalities Cold Pack/Ice Massage,Electric Stimulation,Hot Packs Next Visit Focus/Plan Next Note Type Treatment Note Next Visit Plan Next tx: review HEP; advance hip strength and mobility as able manual to innominte, B hips and knees and STM to LB
--- NOTE | 2024-11-12 09:00 | PT.OTN ---
Current Diagnoses Bilateral primary osteoarthritis of hip (11/12/24) Pain in right hip (11/12/24) Pain in left hip (11/12/24) Spondylosis without myelopathy or radiculopathy, lumbar region (11/12/24) Physical Therapy Treatment Note PT-OP-A Visit Information Start: 10/07/24 16:49 Freq: Status: Active Protocol: Document 11/12/24 08:20 SP (Rec: 11/12/24 09:02 SP [id number]) Out-Patient Physical Therapy Visit Information Visit Information Visit Type Treatment Note Visit Start Time 08:20 Visit Stop Time 09:00 Visit Number 4 (02/04 IE) Number of SORTING MACHINE ATTENDANT Visits 2 PT-OP-B Current Condition Start: 10/07/24 16:49 Freq: Status: Active Protocol: Document 10/12/24 13:02 [facility] (Rec: 10/12/24 13:42 [facility] [id number]) Current Condition History of Current Condition Onset Date 1 year or more Current Complaints LBP, L hip pain, B knee pain History of Current Condition Pt reports she just had assessments on her knees from ortho and said she could have replacement but could wait until has more pain. They aren 't bothering her too much. She wants strength for her knees to avoid gving out and avoid surgery. Whenever she goes for a walk w/ and her back hurts. She can sit down for 3 -5 min then can keep walking, or when doing dishes for 10-15 min, back will start bothering her (LS). Been noticing the past 4-6 months sitting a while, kala will get pain in L ant hip. Was told she does have some arthritis in hips. Last year saw Rosio and has been going to [employer] [facility] and use the resistance machines for shoulder then it keeps the shoulders functional. When she walks it is a max of 30 min d/t her back tolerance (after 15 min starts to feel uncomfortable). Has been for about a year. Occ times she goes longer and feels okay, but unsure why it sometimes doesnt bother her but now happening more regularly. [facility], used to go for 1-1.5 hr hikes . Occ w/up/down hills, R knee feels painful and weak/gives out. ON the way down last year going down hill, R knee gave out and had to grab ahold of . has leg length difference. Wear 1/2 in lift in L side and wears custom insoles PMH: diabetes, neuropathy ( minor), thyroid disorder, 2 seizures in 2008 and was on meds short time only. Treatment Goals Patient/Caregiver Goals improved walking (be able to do hour walks occasionally) without pain and standing tolerance, improve strength and extend life of B knees PT-OP-C Subjective Start: 10/07/24 16:49 Freq: Status: Active Protocol: Document 11/12/24 08:20 SP (Rec: 11/12/24 09:02 SP [id number]) OP-PT Subjective Patient Comments Patient Comments Pt reports felt fine after instruction gym equipment can do at [facility] and LE. She arrives tired, not as bad insomnia. She reports feeling somewhat numb lateral B ankles to lateral calf and feels affecting balance. What can she to do retard or limit progress knowing is Diabetic? PT-OP-D Balance Start: 10/07/24 16:49 Freq: Status: Active Protocol: Document 10/12/24 13:02 [facility] (Rec: 10/12/24 13:42 [facility] [id number]) Balance Tests Single Limb Standing Single Limb- Right 3 sec, significant hip drop Single Limb- Left 4 sec PT-OP-G Mobility & Gait Start: 10/07/24 16:49 Freq: Status: Active Protocol: Document 10/12/24 13:02 [facility] (Rec: 10/12/24 13:42 [facility] [id number]) OP Gait Assessment Comments Gait Comments dec RLE stance time, lat lean B, R trendelenburg, stiff in upper body PT-OP-J Posture/Palpation/Skin Start: 10/07/24 16:49 Freq: Status: Active Protocol: Document 10/12/24 13:02 [facility] (Rec: 10/12/24 13:42 [facility] [id number]) Posture Evaluation Jillian Postural Classification System Jillian Postural Classifications Posterior/Anterior Vertical Compression Test 1 Lumbar Protective Mechanism Left AP 0 Lumbar Protective Mechanism Right AP 0 Lumbar Protective Mechanism Left PA 2 Lumbar Protective Mechanism Right PA 4 Comments Posture Comments toe out of L foot, IR B femur, ER tibia, inc kyphosis, fwd head PT-OP-K Range of Motion Start: 10/07/24 16:49 Freq: Status: Active Protocol: Document 10/12/24 13:02 [facility] (Rec: 10/12/24 13:42 [facility] [id number]) Lumbar Spine Range of Motion Lumbar Spine Active Percentage Flexion 20 Extension 50 Rotation Left 35 Rotation Right 50 Lateral Flexion Left 70 Lateral Flexion Right 60 Comments to midshins w/flex w/hips; blocked hips to upper mid thighs, stiffness w/flex; pinching R>L SB, pain in abdomen w/r rot PT-OP-L Special Tests Start: 10/07/24 16:49 Freq: Status: Active Protocol: Document 10/12/24 13:02 [facility] (Rec: 10/12/24 13:42 [facility] [id number]) Special Tests Lumbar Spine Special Tests march Test Results pos Slump Test Results neg PT-OP-M Strength Start: 10/12/24 13:40 Freq: Status: Active Protocol: Document 10/12/24 13:02 [facility] (Rec: 10/12/24 14:35 [facility] [id number]) Hip Strength Hip Manual Muscle Testing Right Flexion (L2) 3+ Fair+ Extension (S1) 3+ Fair+ Abduction 3+ Fair+ External Rotation 3+ Fair+ Internal Rotation 4+ Good+ Left Flexion (L2) 3+ Fair+ Extension (S1) 3+ Fair+ Abduction 4 Good External Rotation 3+ Fair+ Internal Rotation 4+ Good+ Knee Strength Knee Manual Muscle Testing Right Flexion (S2) 5 Normal Extension (L3) 4 Good Left Flexion (S2) 5 Normal Extension (L3) 4 Good Ankle/Foot Strength Ankle and Foot Manual Muscle Testing B Dorsiflexion (L4) 5 Normal Plantarflexion (S1) 5 Normal PT-OP-Q Treatments Start: 10/07/24 16:49 Freq: Status: Active Protocol: Document 11/12/24 08:20 SP (Rec: 11/12/24 09:02 SP [id number]) Gym Equipment Cable Column (Body Solid) Leg Curl Resistance 3 plates Reps/Time 12 x2 reps Leg Extension Resistance 1 plate Reps/Time 12 x2 reps Therapeutic Exercises Supine Exercises LTR Supine Exercise Name reviewed Side bilateral Reps/Minutes 10 Comments cues comfortable range and core to lift knees back up bridge Side bilateral Reps/Minutes 10 5 SH Comments segmental good form Standing Exercises SLS Standing Exercise Name added to HEP /c HO Side bilateral Comments RLE 26 sec, LLE 7 sec SL sliders Standing Exercise Name added to HEP /c HO (3, 4-5/6 o 'clock) Side bilateral Reps/Minutes 5 reps each LE Comments cued stationary knee flexion with and behind forefoot. sidesteps Standing Exercise Name f/b/side stepping- reviewed Side bilateral Equipment Used L1 at ankles Reps/Minutes 10 ft x2 laps Comments occ cue for R forefoot clearance sit to stand Standing Exercise Name reviewed Side bilateral Resistance L1 at knees Equipment Used 18 table, hands pray positioning front (discuss judaism too) Reps/Minutes 12 Comments cued hip hinge slow fully sit soft landing- better PT-OP-T Assessment and Plan Start: 10/07/24 16:49 Freq: Status: Active Protocol: Document 11/12/24 08:20 SP (Rec: 11/12/24 09:02 SP [id number]) Physical Therapy Assessment Goals Six Impairment strength Short Term Goal (STG) Pt will be indep w/HEP STG Duration 11/13 Hand I Blocker Goal (LTG) Pt will score at least 3/5 on LPM and at least 4+/5 on all BLE MMT to allow greater ease w/typical activities LTG Duration 12/22 Five Impairment walking only max 30 min RT Short Term Goal (STG) Pt will be able to do 30 min RT walk w/o pain >3/10 STG Duration 11/11 Penitentiary Goal (LTG) Pt will be able to do occasional 45 min to 1 hour walks w/small hills w/o pain greater than 2/10 in back or knees LTG Duration 12/22 Four Impairment Walks 15' before LB starts to feel uncomfortable. Hand I Blocker Goal (LTG) Pt will be able to stand as needed in kitchen w/o pain in back/knees >2/10 LTG Duration 12/22 Assessment Summary Assessment Pt improved response to ther ex, cues as needed for proper form hip hinge STS and added fwd/bwd resisted stepping no pain just tiring needed seated rest. Good response to progression SLS and SL star glides /c HO provided, cues knee with and behind toes and small distance range for knee stability awareness. No pain. Was able to tolerated self increased sets and reps machine leg ext and curls today. Physical Therapy Plan Frequency and Duration Frequency of Treatment 2x/Week Duration of treatment (weeks) 10 Plan of Care Start Date 10/12/24 Plan of Care End Date 12/22/24 Therapeutic Interventions Therapeutic Interventions Balance Training,Home Exercise Program,Joint Mobilizations, Manual Therapy,Neuromuscular Re-education,Patient/Caregiver Education,Self-Care/Home Management,Soft Tissue Mobilization,Taping, Therapeutic Activities, Therapeutic Exercises Modalities Cold Pack/Ice Massage,Electric Stimulation,Hot Packs Next Visit Focus/Plan Next Note Type Treatment Note Next Visit Plan Next tx: review HEP; advance hip strength and mobility as able manual to innominte, B hips and knees and STM to LB
--- NOTE | 2024-11-18 09:00 | PT.OTN ---
Current Diagnoses Bilateral primary osteoarthritis of hip (11/18/24) Pain in right hip (11/18/24) Pain in left hip (11/18/24) Spondylosis without myelopathy or radiculopathy, lumbar region (11/18/24) Physical Therapy Treatment Note PT-OP-A Visit Information Start: 10/07/24 16:49 Freq: Status: Active Protocol: Document 11/18/24 08:22 SP (Rec: 11/18/24 09:02 SP [id number]) Out-Patient Physical Therapy Visit Information Visit Information Visit Type Treatment Note Visit Start Time 08:22 Visit Stop Time 09:00 Visit Number 5 (03/06 IE) Number of CR[employer] UN[employer] FIELD EXAMINER Visits 3 PT-OP-B Current Condition Start: 10/07/24 16:49 Freq: Status: Active Protocol: Document 10/12/24 13:02 [facility] (Rec: 10/12/24 13:42 [facility] [id number]) Current Condition History of Current Condition Onset Date 1 year or more Current Complaints LBP, L hip pain, B knee pain History of Current Condition Pt reports she just had assessments on her knees from ortho and said she could have replacement but could wait until has more pain. They aren 't bothering her too much. She wants strength for her knees to avoid gving out and avoid surgery. Whenever she goes for a walk w/ and her back hurts. She can sit down for 3 -5 min then can keep walking, or when doing dishes for 10-15 min, back will start bothering her (LS). Been noticing the past 4-6 months sitting a while, kala will get pain in L ant hip. Was told she does have some arthritis in hips. Last year saw Rosio and has been going to [employer] gym and use the resistance machines for shoulder then it keeps the shoulders functional. When she walks it is a max of 30 min d/t her back tolerance (after 15 min starts to feel uncomfortable). Has been for about a year. Occ times she goes longer and feels okay, but unsure why it sometimes doesnt bother her but now happening more regularly. When first move [facility] 5 years ago, used to go for 1-1.5 hr hikes . Occ w/up/down hills, R knee feels painful and weak/gives out. ON the way down last year going down hill, R knee gave out and had to grab ahold of . has leg length difference. Wear 1/2 in lift in L side and wears custom insoles PMH: diabetes, neuropathy ( minor), thyroid disorder, 2 seizures in 2009 and was on meds short time only. Treatment Goals Patient/Caregiver Goals improved walking (be able to do hour walks occasionally) without pain and standing tolerance, improve strength and extend life of B knees PT-OP-C Subjective Start: 10/07/24 16:49 Freq: Status: Active Protocol: Document 11/18/24 08:22 SP (Rec: 11/18/24 09:02 SP [id number]) OP-PT Subjective Patient Comments Patient Comments Pt reports not sure if ex at gym feeling stronger, having pain soreness from exercising and have feeling of decreased feeling of connection/ little heavier between knees and ankles. What can she do to retard the less feeling has in calves? PT-OP-D Balance Start: 10/07/24 16:49 Freq: Status: Active Protocol: Document 10/12/24 13:02 [facility] (Rec: 10/12/24 13:42 [facility] [id number]) Balance Tests Single Limb Standing Single Limb- Right 3 sec, significant hip drop Single Limb- Left 4 sec PT-OP-G Mobility & Gait Start: 10/07/24 16:49 Freq: Status: Active Protocol: Document 10/12/24 13:02 [facility] (Rec: 10/12/24 13:42 [facility] [id number]) OP Gait Assessment Comments Gait Comments dec RLE stance time, lat lean B, R trendelenburg, stiff in upper body PT-OP-J Posture/Palpation/Skin Start: 10/07/24 16:49 Freq: Status: Active Protocol: Document 10/12/24 13:02 [facility] (Rec: 10/12/24 13:42 [facility] [id number]) Posture Evaluation Jillian Postural Classification System Jillian Postural Classifications Posterior/Anterior Vertical Compression Test 1 Lumbar Protective Mechanism Left AP 0 Lumbar Protective Mechanism Right AP 0 Lumbar Protective Mechanism Left PA 2 Lumbar Protective Mechanism Right PA 4 Comments Posture Comments toe out of L foot, IR B femur, ER tibia, inc kyphosis, fwd head PT-OP-K Range of Motion Start: 10/07/24 16:49 Freq: Status: Active Protocol: Document 10/12/24 13:02 [facility] (Rec: 10/12/24 13:42 [facility] [id number]) Lumbar Spine Range of Motion Lumbar Spine Active Percentage Flexion 20 Extension 50 Rotation Left 35 Rotation Right 50 Lateral Flexion Left 70 Lateral Flexion Right 60 Comments to midshins w/flex w/hips; blocked hips to upper mid thighs, stiffness w/flex; pinching R>L SB, pain in abdomen w/r rot PT-OP-L Special Tests Start: 10/07/24 16:49 Freq: Status: Active Protocol: Document 10/12/24 13:02 [facility] (Rec: 10/12/24 13:42 [facility] [id number]) Special Tests Lumbar Spine Special Tests march Test Results pos Slump Test Results neg PT-OP-M Strength Start: 10/12/24 13:40 Freq: Status: Active Protocol: Document 10/12/24 13:02 [facility] (Rec: 10/12/24 14:35 [facility] [id number]) Hip Strength Hip Manual Muscle Testing Right Flexion (L2) 3+ Fair+ Extension (S1) 3+ Fair+ Abduction 3+ Fair+ External Rotation 3+ Fair+ Internal Rotation 4+ Good+ Left Flexion (L2) 3+ Fair+ Extension (S1) 3+ Fair+ Abduction 4 Good External Rotation 3+ Fair+ Internal Rotation 4+ Good+ Knee Strength Knee Manual Muscle Testing Right Flexion (S2) 5 Normal Extension (L3) 4 Good Left Flexion (S2) 5 Normal Extension (L3) 4 Good Ankle/Foot Strength Ankle and Foot Manual Muscle Testing B Dorsiflexion (L4) 5 Normal Plantarflexion (S1) 5 Normal PT-OP-Q Treatments Start: 10/07/24 16:49 Freq: Status: Active Protocol: Document 11/18/24 08:22 SP (Rec: 11/18/24 09:02 SP [id number]) Cardio Equipment Bicycle (Upright) Duration (Minutes) 6 Resistance 4 Seat Position 7 Other warm up Gym Equipment Cable Column (Body Solid) Leg Curl Resistance 3>4 plates Reps/Time 15 reps each resistance Leg Extension Resistance 2>1.5> 1 plate Reps/Time 8 reps, Shuttle Recovery Unilateral Squats Details approx 90 deg Resistance 62# Shuttle Recovery Platform Stable Reps/Time multiple reps, R midrange comfort. Manual Therapy Treatment Consent Patient gave verbal consent for manual Yes treatment Soft Tissue Mobilization R leg Body Location quad RF >VL, ITB, patella mobs Mobilization Type Strumming Comments on Shuttle Recovery-slight less under patella pain PT-OP-T Assessment and Plan Start: 10/07/24 16:49 Freq: Status: Active Protocol: Document 11/18/24 08:22 SP (Rec: 11/18/24 09:02 SP [id number]) Physical Therapy Assessment Goals Six Impairment strength Short Term Goal (STG) Pt will be indep w/HEP STG Duration 11/13 Carousel Operator Goal (LTG) Pt will score at least 3/5 on LPM and at least 4+/5 on all BLE MMT to allow greater ease w/typical activities LTG Duration 12/22 Five Impairment walking only max 30 min RT Short Term Goal (STG) Pt will be able to do 30 min RT walk w/o pain >3/10 STG Duration 11/11 Long-Term Goal (LTG) Pt will be able to do occasional 45 min to 1 hour walks w/small hills w/o pain greater than 2/10 in back or knees LTG Duration 12/22 Four Impairment Walks 15' before LB starts to feel uncomfortable. Long-Term Goal (LTG) Pt will be able to stand as needed in kitchen w/o pain in back/knees >2/10 LTG Duration 12/22 Assessment Summary Assessment Pt continued proper use under instruction exercise equipment and discussion range painfree while providing strength for functional mobility. Reports less sub R patella irritation after manual to superior patella/distal quad STMs can carryover homeuse rolling pin knows can use. Will progress HEP and progression gait distance and uneven surfaces next tx. Physical Therapy Plan Frequency and Duration Frequency of Treatment 2x/Week Duration of treatment (weeks) 10 Plan of Care Start Date 10/12/24 Plan of Care End Date 12/22/24 Therapeutic Interventions Therapeutic Interventions Balance Training,Home Exercise Program,Joint Mobilizations, Manual Therapy,Neuromuscular Re-education,Patient/Caregiver Education,Self-Care/Home Management,Soft Tissue Mobilization,Taping, Therapeutic Activities, Therapeutic Exercises Modalities Cold Pack/Ice Massage,Electric Stimulation,Hot Packs Next Visit Focus/Plan Next Note Type Treatment Note Next Visit Plan Next tx: review HEP as needed, progress gait distance and uneven surfaces toward goals; POC: advance hip strength and mobility as able manual to innominte, B hips and knees and STM to LB
--- NOTE | 2024-11-23 16:27 | PT.OTN ---
Current Diagnoses Bilateral primary osteoarthritis of hip (11/23/24) Pain in right hip (11/23/24) Pain in left hip (11/23/24) Spondylosis without myelopathy or radiculopathy, lumbar region (11/23/24) Physical Therapy Treatment Note PT-OP-A Visit Information Start: 10/07/24 16:49 Freq: Status: Active Protocol: Document 11/23/24 10:49 [facility] (Rec: 11/23/24 12:36 [facility] [id number]) Out-Patient Physical Therapy Visit Information Visit Information Visit Type Progress Note Visit Start Time 10:50 Visit Stop Time 11:30 Visit Number 6 (11/06) Number of ONLINE ADVERTISING DIRECTOR Visits 0 PT-OP-B Current Condition Start: 10/07/24 16:49 Freq: Status: Active Protocol: Document 10/12/24 13:02 [facility] (Rec: 10/12/24 13:42 [facility] [id number]) Current Condition History of Current Condition Onset Date 1 year or more Current Complaints LBP, L hip pain, B knee pain History of Current Condition Pt reports she just had assessments on her knees from ortho and said she could have replacement but could wait until has more pain. They aren 't bothering her too much. She wants strength for her knees to avoid gving out and avoid surgery. Whenever she goes for a walk w/ and her back hurts. She can sit down for 3 -5 min then can keep walking, or when doing dishes for 10-15 min, back will start bothering her (LS). Been noticing the past 4-6 months sitting a while, kala will get pain in L ant hip. Was told she does have some arthritis in hips. Last year saw Rosio and has been going to [employer] [facility] and use the resistance machines for shoulder then it keeps the shoulders functional. When she walks it is a max of 30 min d/t her back tolerance (after 15 min starts to feel uncomfortable). Has been for about a year. Occ times she goes longer and feels okay, but unsure why it sometimes doesnt bother her but now happening more regularly. When first move [facility] 5 years ago, used to go for 1-1.5 hr hikes . Occ w/up/down hills, R knee feels painful and weak/gives out. ON the way down last year going down hill, R knee gave out and had to grab ahold of . has leg length difference. Wear 1/2 in lift in L side and wears custom insoles PMH: diabetes, neuropathy ( minor), thyroid disorder, 2 seizures in 2009 and was on meds short time only. Treatment Goals Patient/Caregiver Goals improved walking (be able to do hour walks occasionally) without pain and standing tolerance, improve strength and extend life of B knees PT-OP-C Subjective Start: 10/07/24 16:49 Freq: Status: Active Protocol: Document 11/23/24 10:49 [facility] (Rec: 11/23/24 12:36 [facility] [id number]) OP-PT Subjective Patient Comments Patient Comments Pt feels little knots in R arm . Went for a walk a couple days ago. was able to walk 20 to 25 min before needed to rest and sit. Less R lat hip irritation. Patient Reported Progress Improving PT-OP-D Balance Start: 10/07/24 16:49 Freq: Status: Active Protocol: Document 10/12/24 13:02 [facility]12[facility]24 [id number] Balance Tests Single Limb Standing Single Limb- Right 3 sec, significant hip drop Single Limb- Left 4 sec PT-OP-G Mobility & Gait Start: 10/07/24 16:49 Freq: Status: Active Protocol: Document 10/12/24 13:02 [facility] (Rec: 10/12/24 13:42 [facility] [id number]) OP Gait Assessment Comments Gait Comments dec RLE stance time, lat lean B, R trendelenburg, stiff in upper body PT-OP-J Posture/Palpation/Skin Start: 10/07/24 16:49 Freq: Status: Active Protocol: Document 11/23/24 10:49 [facility] (Rec: 11/23/24 12:36 [facility] [id number]) Posture Evaluation Jillian Postural Classification System Jillian Postural Classifications Posterior/Anterior Vertical Compression Test 2 Lumbar Protective Mechanism Left AP 1 Lumbar Protective Mechanism Right AP 2 Lumbar Protective Mechanism Left PA 2 Lumbar Protective Mechanism Right PA 3 PT-OP-K Range of Motion Start: 10/07/24 16:49 Freq: Status: Active Protocol: Document 10/12/24 13:02 [facility] (Rec: 10/12/24 13:42 [facility] [id number]) Lumbar Spine Range of Motion Lumbar Spine Active Percentage Flexion 20 Extension 50 Rotation Left 35 Rotation Right 50 Lateral Flexion Left 70 Lateral Flexion Right 60 Comments to midshins w/flex w/hips; blocked hips to upper mid thighs, stiffness w/flex; pinching R>L SB, pain in abdomen w/r rot PT-OP-L Special Tests Start: 10/07/24 16:49 Freq: Status: Active Protocol: Document 10/12/24 13:02 [facility] (Rec: 10/12/24 13:42 [facility] [id number]) Special Tests Lumbar Spine Special Tests march Test Results pos Slump Test Results neg PT-OP-M Strength Start: 10/12/24 13:40 Freq: Status: Active Protocol: Document 11/23/24 10:49 [facility] (Rec: 11/23/24 12:36 [facility] [id number]) Hip Strength Hip Manual Muscle Testing Right Flexion (L2) 4- Good- Extension (S1) 4+ Good+ Abduction 4 Good Adduction 5 Normal External Rotation 5 Normal Internal Rotation 5 Normal Left Flexion (L2) 4- Good- Extension (S1) 4+ Good+ Abduction 4+ Good+ Adduction 5 Normal External Rotation 5 Normal Internal Rotation 5 Normal Knee Strength Knee Manual Muscle Testing Right Flexion (S2) 5 Normal Extension (L3) 5 Normal Left Flexion (S2) 5 Normal Extension (L3) 5 Normal PT-OP-Q Treatments Start: 10/07/24 16:49 Freq: Status: Active Protocol: Document 11/23/24 10:49 [facility] (Rec: 11/23/24 12:36 [facility] [id number]) Gym Equipment Cable Column (Body Solid) paloff press Resistance 1 Reps/Time 15 ea Therapeutic Exercises Sitting Exercises rolling pin Sitting Exercise Name quads, HS, ITB, add Side bilateral Reps/Minutes 5 min Comments self roll out stretches Sitting Exercise Name 1. piriformis 2. figure4 Side bilateral Reps/Minutes 45 sec ea Other Exercises isometrics Other Exercise Name BLE MMT and LPM and VCT Side bilateral Manual Therapy Treatment Consent Patient gave verbal consent for manual Yes treatment Soft Tissue Mobilization hip Body Location L lat glutes, lat HS and ITB Mobilization Type Rolling Intensity/Depth Superficial Body Position Hooklying Comments w/IR Joint Mobilizations hip Joint L free the ball IR c/r Body Position Hooklying PT-OP-T Assessment and Plan Start: 10/07/24 16:49 Freq: Status: Active Protocol: Document 11/23/24 10:49 [facility] (Rec: 11/23/24 12:36 [facility] [id number]) Physical Therapy Assessment Goals Six Impairment strength Short Term Goal (STG) Pt will be indep w/HEP 11/23-doing well w/gym program STG Duration 11/13 Retirement Goal (LTG) Pt will score at least 3/5 on LPM and at least 4+/5 on all BLE MMT to allow greater ease w/typical activities 11/23 LTG Duration 12/22 Five Impairment walking only max 30 min RT Short Term Goal (STG) Pt will be able to do 30 min RT walk w/o pain >3/10 11/23- 30 to 35 min walks 4/10 STG Duration 11/11 Retirement Goal (LTG) Pt will be able to do occasional 45 min to 1 hour walks w/small hills w/o pain greater than 2/10 in back or knees LTG Duration 12/22 Four Impairment . Member Services Representative Goal (LTG) Pt will be able to stand as needed in kitchen w/o pain in back/knees >2/10 11/23-about 30 min in the kitchen before backfeels tired LTG Duration 12/22 Assessment Summary Assessment Pt did well with seated stretches and with standing paloff press. She admits that it is easiest to be compliant if she does exercises at gym but can't get down to ground well so plan to work on more gym exercises for HEP. Pt has improved strength but still weakness in core and impaired pelvic alignment likely affecting pain. Cont PT to dec back pain and improve function. Physical Therapy Plan Frequency and Duration Frequency of Treatment 2x/Week Duration of treatment (weeks) 10 Plan of Care Start Date 10/12/24 Plan of Care End Date 12/22/24 Therapeutic Interventions Therapeutic Interventions Balance Training,Home Exercise Program,Joint Mobilizations, Manual Therapy,Neuromuscular Re-education,Patient/Caregiver Education,Self-Care/Home Management,Soft Tissue Mobilization,Taping, Therapeutic Activities, Therapeutic Exercises Modalities Cold Pack/Ice Massage,Electric Stimulation,Hot Packs Next Visit Focus/Plan Next Note Type Treatment Note Next Visit Plan review hip stretches/paloff press, focus on exercises can do at gym manual to innominte, B hips and knees and STM to LB and hips B
--- NOTE | 2024-11-23 17:54 | PT.OPPN ---
Current Diagnoses Bilateral primary osteoarthritis of hip (11/23/24) Pain in right hip (11/23/24) Pain in left hip (11/23/24) Spondylosis without myelopathy or radiculopathy, lumbar region (11/23/24) Physical Therapy Progress Note PT-OP-A Visit Information Start: 10/07/24 16:49 Freq: Status: Active Protocol: Document 11/23/24 10:49 [facility] (Rec: 11/23/24 12:36 [facility] [id number]) Out-Patient Physical Therapy Visit Information Visit Information Visit Type Progress Note Visit Start Time 10:50 Visit Stop Time 11:30 Visit Number 6 (11/06) Number of RESEARCH HOME ECONOMIST Visits 0 PT-OP-B Current Condition Start: 10/07/24 16:49 Freq: Status: Active Protocol: Document 10/12/24 13:02 [facility] (Rec: 10/12/24 13:42 [facility] [id number]) Current Condition History of Current Condition Onset Date 1 year or more Current Complaints LBP, L hip pain, B knee pain History of Current Condition Pt reports she just had assessments on her knees from ortho and said she could have replacement but could wait until has more pain. They aren 't bothering her too much. She wants strength for her knees to avoid gving out and avoid surgery. Whenever she goes for a walk w/ and her back hurts. She can sit down for 3 -5 min then can keep walking, or when doing dishes for 10-15 min, back will start bothering her (LS). Been noticing the past 4-6 months sitting a while, kala will get pain in L ant hip. Was told she does have some arthritis in hips. Last year saw Rosio and has been going to [employer] [facility] [employer] and use the resistance machines for shoulder then it keeps the shoulders functional. When she walks it is a max of 30 min d/t her back tolerance (after 15 min starts to feel uncomfortable). Has been for about a year. Occ times she goes longer and feels okay, but unsure why it sometimes doesnt bother her but now happening more regularly. When first move [facility] 5 years ago, used to go for 1-1.5 hr hikes . Occ w/up/down hills, R knee feels painful and weak/gives out. ON the way down last year going down hill, R knee gave out and had to grab ahold of . has leg length difference. Wear 1/2 in lift in L side and wears custom insoles PMH: diabetes, neuropathy ( minor), thyroid disorder, 2 seizures in 2009 and was on meds short time only. Treatment Goals Patient/Caregiver Goals improved walking (be able to do hour walks occasionally) without pain and standing tolerance, improve strength and extend life of B knees PT-OP-C Subjective Start: 10/07/24 16:49 Freq: Status: Active Protocol: Document 11/23/24 10:49 [facility] (Rec: 11/23/24 12:36 [facility] [id number]) OP-PT Subjective Patient Comments Patient Comments Pt feels little knots in R arm . Went for a walk a couple days ago. was able to walk 20 to 25 min before needed to rest and sit. Less R lat hip irritation. Patient Reported Progress Improving PT-OP-D Balance Start: 10/07/24 16:49 Freq: Status: Active Protocol: Document 10/12/24 13:02 [facility] (Rec: 10/12/24 13:42 [id number] Balance Tests Single Limb Standing Single Limb- Right 3 sec, significant hip drop Single Limb- Left 4 sec PT-OP-G Mobility & Gait Start: 10/07/24 16:49 Freq: Status: Active Protocol: Document 10/12/24 13:02 [facility] (Rec: 10/12/24 13:42 [facility] [id number]) OP Gait Assessment Comments Gait Comments dec RLE stance time, lat lean B, R trendelenburg, stiff in upper body PT-OP-J Posture/Palpation/Skin Start: 10/07/24 16:49 Freq: Status: Active Protocol: Document 11/23/24 10:49 [facility] (Rec: 11/23/24 12:36 [facility] [id number]) Posture Evaluation Jillian Postural Classification System Jillian Postural Classifications Posterior/Anterior Vertical Compression Test 2 Lumbar Protective Mechanism Left AP 1 Lumbar Protective Mechanism Right AP 2 Lumbar Protective Mechanism Left PA 2 Lumbar Protective Mechanism Right PA 3 PT-OP-K Range of Motion Start: 10/07/24 16:49 Freq: Status: Active Protocol: Document 10/12/24 13:02 [facility] (Rec: 10/12/24 13:42 [facility] [id number]) Lumbar Spine Range of Motion Lumbar Spine Active Percentage Flexion 20 Extension 50 Rotation Left 35 Rotation Right 50 Lateral Flexion Left 70 Lateral Flexion Right 60 Comments to midshins w/flex w/hips; blocked hips to upper mid thighs, stiffness w/flex; pinching R>L SB, pain in abdomen w/r rot PT-OP-L Special Tests Start: 10/07/24 16:49 Freq: Status: Active Protocol: Document 10/12/24 13:02 [facility] (Rec: 10/12/24 13:42 [facility] [id number]) Special Tests Lumbar Spine Special Tests march Test Results pos Slump Test Results neg PT-OP-M Strength Start: 10/12/24 13:40 Freq: Status: Active Protocol: Document 11/23/24 10:49 [facility] (Rec: 11/23/24 12:36 [id number] Hip Strength Hip Manual Muscle Testing Right Flexion (L2) 4- Good- Extension (S1) 4+ Good+ Abduction 4 Good Adduction 5 Normal External Rotation 5 Normal Internal Rotation 5 Normal Left Flexion (L2) 4- Good- Extension (S1) 4+ Good+ Abduction 4+ Good+ Adduction 5 Normal External Rotation 5 Normal Internal Rotation 5 Normal Knee Strength Knee Manual Muscle Testing Right Flexion (S2) 5 Normal Extension (L3) 5 Normal Left Flexion (S2) 5 Normal Extension (L3) 5 Normal PT-OP-T Assessment and Plan Start: 10/07/24 16:49 Freq: Status: Active Protocol: Document 11/23/24 10:49 [facility] (Rec: 11/23/24 12:36 [facility] [id number]) Physical Therapy Assessment Goals Six Impairment strength Short Term Goal (STG) Pt will be indep w/HEP 11/23-doing well w/gym program STG Duration 11/13 Nursing Home Goal (LTG) Pt will score at least 3/5 on LPM and at least 4+/5 on all BLE MMT to allow greater ease w/typical activities 11/23 LTG Duration 12/22 Five Impairment walking only max 30 min RT Short Term Goal (STG) Pt will be able to do 30 min RT walk w/o pain >3/10 11/23- 30 to 35 min walks 4/10 STG Duration 11/11 Mixing Engineer Goal (LTG) Pt will be able to do occasional 45 min to 1 hour walks w/small hills w/o pain greater than 2/10 in back or knees LTG Duration 12/22 Four Impairment . Mixing Engineer Goal (LTG) Pt will be able to stand as needed in kitchen w/o pain in back/knees >2/10 11/23-about 30 min in the kitchen before backfeels tired LTG Duration 12/22 Assessment Summary Assessment Pt did well with seated stretches and with standing paloff press. She admits that it is easiest to be compliant if she does exercises at gym but can't get down to ground well so plan to work on more gym exercises for HEP. Pt has improved strength but still weakness in core and impaired pelvic alignment likely affecting pain. Cont PT to dec back pain and improve function. Physical Therapy Plan Frequency and Duration Frequency of Treatment 2x/Week Duration of treatment (weeks) 10 Plan of Care Start Date 10/12/24 Plan of Care End Date 12/22/24 Therapeutic Interventions Therapeutic Interventions Balance Training,Home Exercise Program,Joint Mobilizations, Manual Therapy,Neuromuscular Re-education,Patient/Caregiver Education,Self-Care/Home Management,Soft Tissue Mobilization,Taping, Therapeutic Activities, Therapeutic Exercises Modalities Cold Pack/Ice Massage,Electric Stimulation,Hot Packs Next Visit Focus/Plan Next Note Type Treatment Note Next Visit Plan review hip stretches/paloff press, focus on exercises can do at gym manual to innominte, B hips and knees and STM to LB and hips B
--- NOTE | 2024-12-09 11:21 | PT.OTN ---
Current Diagnoses Bilateral primary osteoarthritis of hip (12/09/24) Pain in right hip (12/09/24) Pain in left hip (12/09/24) Spondylosis without myelopathy or radiculopathy, lumbar region (12/09/24) Physical Therapy Treatment Note PT-OP-A Visit Information Start: 10/07/24 16:49 Freq: Status: Active Protocol: Document 12/09/24 08:19 [facility] (Rec: 12/09/24 11:20 [facility] [id number]) Out-Patient Physical Therapy Visit Information Visit Information Visit Type Treatment Note Visit Start Time 08:22 Visit Stop Time 09:02 Visit Number 7 (12/07) Number of RN INTERNAL MEDICINE Visits 0 PT-OP-B Current Condition Start: 10/07/24 16:49 Freq: Status: Active Protocol: Document 10/12/24 13:02 [facility] (Rec: 10/12/24 13:42 [facility] [id number]) Current Condition History of Current Condition Onset Date 1 year or more Current Complaints LBP, L hip pain, B knee pain History of Current Condition Pt reports she just had assessments on her knees from ortho and said she could have replacement but could wait until has more pain. They aren 't bothering her too much. She wants strength for her knees to avoid gving out and avoid surgery. Whenever she goes for a walk w/ and her back hurts. She can sit down for 3 -5 min then can keep walking, or when doing dishes for 10-15 min, back will start bothering her (LS). Been noticing the past 4-6 months sitting a while, kala will get pain in L ant hip. Was told she does have some arthritis in hips. Last year saw Rosio and has been going to [employer] and use the resistance machines for shoulder then it keeps the shoulders functional. When she walks it is a max of 30 min d/t her back tolerance (after 15 min starts to feel uncomfortable). Has been for about a year. Occ times she goes longer and feels okay, but unsure why it sometimes doesnt bother her but now happening more regularly. When first move [facility] 5 years ago, used to go for 1-1.5 hr hikes . Occ w/up/down hills, R knee feels painful and weak/gives out. ON the way down last year going down hill, R knee gave out and had to grab ahold of . has leg length difference. Wear 1/2 in lift in L side and wears custom insoles PMH: diabetes, neuropathy ( minor), thyroid disorder, 2 seizures in 2008 and was on meds short time only. Treatment Goals Patient/Caregiver Goals improved walking (be able to do hour walks occasionally) without pain and standing tolerance, improve strength and extend life of B knees PT-OP-C Subjective Start: 10/07/24 16:49 Freq: Status: Active Protocol: Document 12/09/24 08:19 [facility] (Rec: 12/09/24 11:20 [id number]-PT Subjective Patient Comments Patient Comments Pt reports standing or walking a long time hurts across the back. Occ R knee sees to do it's thing and not want to hold me PT-OP-D Balance Start: 10/07/24 16:49 Freq: Status: Active Protocol: Document 10/12/24 13:02 [facility] (Rec: 10/12/24 13:42 [id number]) Balance Tests Single Limb Standing Single Limb- Right 3 sec, significant hip drop Single Limb- Left 4 sec PT-OP-G Mobility & Gait Start: 10/07/24 16:49 Freq: Status: Active Protocol: Document 10/12/24 13:02 [facility] (Rec: 10/12/24 13:42 [id number] OP Gait Assessment Comments Gait Comments dec RLE stance time, lat lean B, R trendelenburg, stiff in upper body PT-OP-J Posture/Palpation/Skin Start: 10/07/24 16:49 Freq: Status: Active Protocol: Document 11/23/24 10:49 [facility] (Rec: 11/23/24 12:36 [facility] [id number]) Posture Evaluation Jillian Postural Classification System Jillian Postural Classifications Posterior/Anterior Vertical Compression Test 2 Lumbar Protective Mechanism Left AP 1 Lumbar Protective Mechanism Right AP 2 Lumbar Protective Mechanism Left PA 2 Lumbar Protective Mechanism Right PA 3 PT-OP-K Range of Motion Start: 10/07/24 16:49 Freq: Status: Active Protocol: Document 10/12/24 13:02 [facility] (Rec: 10/12/24 13:42 [facility] [id number]) Lumbar Spine Range of Motion Lumbar Spine Active Percentage Flexion 20 Extension 50 Rotation Left 35 Rotation Right 50 Lateral Flexion Left 70 Lateral Flexion Right 60 Comments to midshins w/flex w/hips; blocked hips to upper mid thighs, stiffness w/flex; pinching R>L SB, pain in abdomen w/r rot PT-OP-L Special Tests Start: 10/07/24 16:49 Freq: Status: Active Protocol: Document 10/12/24 13:02 [facility] (Rec: 10/12/24 13:42 [facility] [id number]) Special Tests Lumbar Spine Special Tests march Test Results pos Slump Test Results neg PT-OP-M Strength Start: 10/12/24 13:40 Freq: Status: Active Protocol: Document 11/23/24 10:49 [facility] (Rec: 11/23/24 12:36 [facility] [id number]) Hip Strength Hip Manual Muscle Testing Right Flexion (L2) 4- Good- Extension (S1) 4+ Good+ Abduction 4 Good Adduction 5 Normal External Rotation 5 Normal Internal Rotation 5 Normal Left Flexion (L2) 4- Good- Extension (S1) 4+ Good+ Abduction 4+ Good+ Adduction 5 Normal External Rotation 5 Normal Internal Rotation 5 Normal Knee Strength Knee Manual Muscle Testing Right Flexion (S2) 5 Normal Extension (L3) 5 Normal Left Flexion (S2) 5 Normal Extension (L3) 5 Normal PT-OP-Q Treatments Start: 10/07/24 16:49 Freq: Status: Active Protocol: Document 12/09/24 08:19 [facility] (Rec: 12/09/24 11:20 [facility] [id number]) Gym Equipment Cable Column (Body Solid) Lat Pull Down Resistance 2 Reps/Time 15 row Details standing Resistance 1 Reps/Time 15 paloff press Resistance 1 (both handles) Reps/Time 2x10 ea Manual Therapy Treatment Consent Patient gave verbal consent for manual Yes treatment Soft Tissue Mobilization R leg Body Location R RF, VMO, add Mobilization Type Rolling Intensity/Depth Superficial Self-Care/Home Management Treatment Education Other Education 10 min: edu to patient to not do any machines 2 days in a row. edu of how core helps to support her back and the importance of focusing on this with her exercises too. Verbal review of machines for legs and discussed w/pt avoiding pain in knees and back w/machines so if inc pain then stopping PT-OP-T Assessment and Plan Start: 10/07/24 16:49 Freq: Status: Active Protocol: Document 12/09/24 08:19 [facility] (Rec: 12/09/24 11:20 [facility] [id number]) Physical Therapy Assessment Goals Six Impairment strength Short Term Goal (STG) Pt will be indep w/HEP 11/23-doing well w/gym program STG Duration 11/13 Refuge Worker Goal (LTG) Pt will score at least 3/5 on LPM and at least 4+/5 on all BLE MMT to allow greater ease w/typical activities 11/23 LTG Duration 12/22 Five Impairment walking only max 30 min RT Short Term Goal (STG) Pt will be able to do 30 min RT walk w/o pain >3/10 11/23- 30 to 35 min walks 4/10 STG Duration 11/11 Correction Goal (LTG) Pt will be able to do occasional 45 min to 1 hour walks w/small hills w/o pain greater than 2/10 in back or knees LTG Duration 12/22 Four Impairment . Correction Goal (LTG) Pt will be able to stand as needed in kitchen w/o pain in back/knees >2/10 11/23-about 30 min in the kitchen before backfeels tired LTG Duration 12/22 Assessment Summary Assessment Pt reprots RLE feeling looser and easier to walk after manual treatment. She demonstrated good understanding of exercises and importance after work and eduction. Physical Therapy Plan Frequency and Duration Frequency of Treatment 2x/Week Duration of treatment (weeks) 10 Plan of Care Start Date 10/12/24 Plan of Care End Date 12/22/24 Next Visit Focus/Plan Next Note Type Treatment Note Next Visit Plan give RF stretch B, show how to use rolling pin, cont to wrok on back, hips, and knees to improve mobility of spine and knee for activity
--- NOTE | 2024-12-17 12:33 | PT.OTN ---
Current Diagnoses Bilateral primary osteoarthritis of hip (12/17/24) Pain in right hip (12/17/24) Pain in left hip (12/17/24) Spondylosis without myelopathy or radiculopathy, lumbar region (12/17/24) Physical Therapy Treatment Note PT-OP-A Visit Information Start: 10/07/24 16:49 Freq: Status: Active Protocol: Document 12/17/24 10:46 [facility] (Rec: 12/17/24 12:32 [facility] [id number]) Out-Patient Physical Therapy Visit Information Visit Information Visit Type Progress Note Visit Start Time 10:49 Visit Stop Time 11:29 Visit Number 8 (11/06) Number of ELECTROENCEPHALOGRAPH TECHNOLOGIST Visits 0 PT-OP-B Current Condition Start: 10/07/24 16:49 Freq: Status: Active Protocol: Document 10/12/24 13:02 [facility] (Rec: 10/12/24 13:42 [facility] [id number]) Current Condition History of Current Condition Onset Date 1 year or more Current Complaints LBP, L hip pain, B knee pain History of Current Condition Pt reports she just had assessments on her knees from ortho and said she could have replacement but could wait until has more pain. They aren 't bothering her too much. She wants strength for her knees to avoid gving out and avoid surgery. Whenever she goes for a walk w/ and her back hurts. She can sit down for 3 -5 min then can keep walking, or when doing dishes for 10-15 min, back will start bothering her (LS). Been noticing the past 4-6 months sitting a while, kala will get pain in L ant hip. Was told she does have some arthritis in hips. Last year saw Rosio and has been going to [employer] gym and use the resistance machines for shoulder then it keeps the shoulders functional. When she walks it is a max of 30 min d/t her back tolerance (after 15 min starts to feel uncomfortable). Has been for about a year. Occ times she goes longer and feels okay, but unsure why it sometimes doesnt bother her but now happening more regularly. When first move [facility] 5 years ago, used to go for 1-1.5 hr hikes . Occ w/up/down hills, R knee feels painful and weak/gives out. ON the way down last year going down hill, R knee gave out and had to grab ahold of . has leg length difference. Wear 1/2 in lift in L side and wears custom insoles PMH: diabetes, neuropathy ( minor), thyroid disorder, 2 seizures in 2008 and was on meds short time only. Treatment Goals Patient/Caregiver Goals improved walking (be able to do hour walks occasionally) without pain and standing tolerance, improve strength and extend life of B knees PT-OP-C Subjective Start: 10/07/24 16:49 Freq: Status: Active Protocol: Document 12/17/24 10:46 [facility] (Rec: 12/17/24 12:32 [facility] [id number]) OP-PT Subjective Patient Comments Patient Comments remembered only rot gym exercise PT-OP-D Balance Start: 10/07/24 16:49 Freq: Status: Active Protocol: Document 10/12/24 13:02 [facility]12[facility]24 [id number] Balance Tests Single Limb Standing Single Limb- Right 3 sec, significant hip drop Single Limb- Left 4 sec PT-OP-G Mobility & Gait Start: 10/07/24 16:49 Freq: Status: Active Protocol: Document 10/12/24 13:02 [facility] (Rec: 10/12/24 13:42 [id number] OP Gait Assessment Comments Gait Comments dec RLE stance time, lat lean B, R trendelenburg, stiff in upper body PT-OP-J Posture/Palpation/Skin Start: 10/07/24 16:49 Freq: Status: Active Protocol: Document 12/17/24 10:46 [facility] (Rec: 12/17/24 12:32 [facility] [id number]) Posture Evaluation [facility] Postural Classification System Lumbar Protective Mechanism Left AP 1 Lumbar Protective Mechanism Right AP 2 Lumbar Protective Mechanism Left PA 3 Lumbar Protective Mechanism Right PA 3 PT-OP-K Range of Motion Start: 10/07/24 16:49 Freq: Status: Active Protocol: Document 10/12/24 13:02 [facility] (Rec: 10/12/24 13:42 [facility] [id number]) Lumbar Spine Range of Motion Lumbar Spine Active Percentage Flexion 20 Extension 50 Rotation Left 35 Rotation Right 50 Lateral Flexion Left 70 Lateral Flexion Right 60 Comments to midshins w/flex w/hips; blocked hips to upper mid thighs, stiffness w/flex; pinching R>L SB, pain in abdomen w/r rot PT-OP-L Special Tests Start: 10/07/24 16:49 Freq: Status: Active Protocol: Document 10/12/24 13:02 [facility] (Rec: 10/12/24 13:42 [facility] [id number]) Special Tests Lumbar Spine Special Tests march Test Results pos Slump Test Results neg PT-OP-M Strength Start: 10/12/24 13:40 Freq: Status: Active Protocol: Document 12/17/24 10:46 [facility] (Rec: 12/17/24 12:32 [facility] [id number]) Hip Strength Hip Manual Muscle Testing Right Flexion (L2) 4+ Good+ Extension (S1) 5 Normal Abduction 4 Good Adduction 5 Normal External Rotation 5 Normal Internal Rotation 5 Normal Left Flexion (L2) 4+ Good+ Extension (S1) 4+ Good+ Abduction 5 Normal Adduction 5 Normal External Rotation 5 Normal Internal Rotation 5 Normal Knee Strength Knee Manual Muscle Testing Right Flexion (S2) 5 Normal Extension (L3) 5 Normal Left Flexion (S2) 5 Normal Extension (L3) 5 Normal PT-OP-Q Treatments Start: 10/07/24 16:49 Freq: Status: Active Protocol: Document 12/17/24 10:46 [facility] (Rec: 12/17/24 12:32 [facility] [id number]) Gym Equipment Cable Column (Body Solid) Lat Pull Down Details cues Resistance 2 Reps/Time 15 row Details standing Resistance 1 Reps/Time 15 paloff press Resistance 1 (both handles) Reps/Time x10 ea Therapeutic Exercises Sitting Exercises rolling pin Sitting Exercise Name quads, HS, ITB, add Side right Reps/Minutes 2min Comments self roll out Standing Exercises stretch Standing Exercise Name quad on chair Side bilateral Equipment Used wall Reps/Minutes 30 sec posture Standing Exercise Name ft away from wall roll up and B shoulder ext Side bilateral Reps/Minutes 1 min x3 Comments inc timef ro set up carry Standing Exercise Name suitcase single arm carry march Side bilateral Equipment Used 10# Reps/Minutes 20ft x2 ea Comments cues neutral posture Manual Therapy Treatment Consent Patient gave verbal consent for manual Yes treatment Soft Tissue Mobilization back Body Location R SI region Mobilization Type Rolling PT-OP-T Assessment and Plan Start: 10/07/24 16:49 Freq: Status: Active Protocol: Document 12/17/24 10:46 [facility] (Rec: 12/17/24 12:32 [facility] [id number]) Physical Therapy Assessment Goals Six Impairment strength Short Term Goal (STG) Pt will be indep w/HEP 11/23-doing well w/gym program STG Duration 11/13 Cotton Sampler Goal (LTG) Pt will score at least 3/5 on LPM and at least 4+/5 on all BLE MMT to allow greater ease w/typical activities 12/17-improving LTG Duration 01/19 Five Impairment walking only max 30 min RT Short Term Goal (STG) Pt will be able to do 30 min RT walk w/o pain >3/10 11/23- 30 to 35 min walks 02/04 12/17-30-40 min -feels like has to sit down after walking STG Duration 01/07 Retirement Goal (LTG) Pt will be able to do occasional 45 min to 1 hour walks w/small hills w/o pain greater than 2/10 in back or knees LTG Duration 01/26 Four Impairment . Cotton Sampler Goal (LTG) Pt will be able to stand as needed in kitchen w/o pain in back/knees >2/10 11/23-about 30 min in the kitchen before backfeels tired 12/17-still limited and feels like has to go sit down LTG Duration 02/11 Assessment Summary Assessment Pt did well with exercises w/ cues for posture and set up. Encouraged to do more of these that will target core also when in gym. Pt making progress w/strength and indep w/exercises w/PT. Cont to focus on dec pain and improved tolerance Physical Therapy Plan Frequency and Duration Frequency of Treatment 1x/Week Duration of treatment (weeks) 8 Plan of Care Start Date 12/17/24 Plan of Care End Date 02/11/25 Therapeutic Interventions Therapeutic Interventions Balance Training,Home Exercise Program,Joint Mobilizations, Manual Therapy,Neuromuscular Re-education,Patient/Caregiver Education,Self-Care/Home Management,Soft Tissue Mobilization,Taping, Therapeutic Activities, Therapeutic Exercises Modalities Cold Pack/Ice Massage,Electric Stimulation,Hot Packs Next Visit Focus/Plan Next Note Type Treatment Note Next Visit Plan review exercises and prep for DC; manaul to spine
--- NOTE | 2024-12-17 12:34 | PT.OPPOC ---
Physical, Occupational & Speech Therapy At Current Diagnoses Bilateral primary osteoarthritis of hip (12/17/24) Pain in right hip (12/17/24) Pain in left hip (12/17/24) Spondylosis without myelopathy or radiculopathy, lumbar region (12/17/24) Visit Care Team Role Provider Type Joesph Martinez MD Family Provider Physician Primary Care Provider Specialty: Internal Medicine Address: [address] [place] [address], [facility] [address], [address] Email: [email or web address] DO Attending Provider Non-Staff Referring Provider Specialty: Orthopedics Address: [address] [place] [address], [id number] Email: Plan Of Care PT-OP-B Current Condition Start: 10/07/24 16:49 Freq: Status: Active Protocol: Document 10/12/24 13:02 [facility] (Rec: 10/12/24 13:42 [facility] [id number]) Current Condition History of Current Condition Onset Date 1 year or more Current Complaints LBP, L hip pain, B knee pain History of Current Condition Pt reports she just had assessments on her knees from ortho and said she could have replacement but could wait until has more pain. They aren 't bothering her too much. She wants strength for her knees to avoid gving out and avoid surgery. Whenever she goes for a walk w/ and her back hurts. She can sit down for 3 -5 min then can keep walking, or when doing dishes for 10-15 min, back will start bothering her (LS). Been noticing the past 4-6 months sitting a while, kala will get pain in L ant hip. Was told she does have some arthritis in hips. Last year saw Rosio and has been going to [employer] gym and use the resistance machines for shoulder then it keeps the shoulders functional. When she walks it is a max of 30 min d/t her back tolerance (after 15 min starts to feel uncomfortable). Has been for about a year. Occ times she goes longer and feels okay, but unsure why it sometimes doesnt bother her but now happening more regularly. When first move [place] 5 years ago, used to go for 1-1.5 hr hikes . Occ w/up/down hills, R knee feels painful and weak/gives out. ON the way down last year going down hill, R knee gave out and had to grab ahold of . has leg length difference. Wear 1/2 in lift in L side and wears custom insoles PMH: diabetes, neuropathy ( minor), thyroid disorder, 2 seizures in 2008 and was on meds short time only. Treatment Goals Patient/Caregiver Goals improved walking (be able to do hour walks occasionally) without pain and standing tolerance, improve strength and extend life of B knees PT-OP-T Assessment and Plan Start: 10/07/24 16:49 Freq: Status: Active Protocol: Document 12/17/24 10:46 [facility] (Rec: 12/17/24 12:32 [facility] [id number]) Physical Therapy Assessment Goals Six Impairment strength Short Term Goal (STG) Pt will be indep w/HEP 11/23-doing well w/gym program STG Duration 11/13 Group Home Goal (LTG) Pt will score at least 3/5 on LPM and at least 4+/5 on all BLE MMT to allow greater ease w/typical activities 12/17-improving LTG Duration 01/19 Five Impairment walking only max 30 min RT Short Term Goal (STG) Pt will be able to do 30 min RT walk w/o pain >3/10 11/23- 30 to 35 min walks 02/04 12/17-30-40 min -feels like has to sit down after walking STG Duration 01/07 Staff Submarine Warfare Officer Goal (LTG) Pt will be able to do occasional 45 min to 1 hour walks w/small hills w/o pain greater than 2/10 in back or knees LTG Duration 01/26 Four Impairment . Staff Submarine Warfare Officer Goal (LTG) Pt will be able to stand as needed in kitchen w/o pain in back/knees >2/10 11/23-about 30 min in the kitchen before backfeels tired 12/17-still limited and feels like has to go sit down LTG Duration 02/11 Assessment Summary Assessment Pt did well with exercises w/ cues for posture and set up. Encouraged to do more of these that will target core also when in gym. Pt making progress w/strength and indep w/exercises w/PT. Cont to focus on dec pain and improved tolerance Physical Therapy Plan Frequency and Duration Frequency of Treatment 1x/Week Duration of treatment (weeks) 8 Plan of Care Start Date 12/17/24 Plan of Care End Date 02/11/25 Therapeutic Interventions Therapeutic Interventions Balance Training,Home Exercise Program,Joint Mobilizations, Manual Therapy,Neuromuscular Re-education,Patient/Caregiver Education,Self-Care/Home Management,Soft Tissue Mobilization,Taping, Therapeutic Activities, Therapeutic Exercises Modalities Cold Pack/Ice Massage,Electric Stimulation,Hot Packs Next Visit Focus/Plan Next Note Type Treatment Note Next Visit Plan review exercises and prep for DC; manaul to spine Plan of Care Dates Plan of Care Start Date 12/17/24 Plan of Care End Date 02/11/25 Electronically Signed by: Kristie Fajardo, PT 12/17/24 3501 If you are in agreement with this Plan of Care, please return a signed and dated copy. I have reviewed this Plan of Care and certify that the skilled therapy services above are required to meet the patient?s needs. Physician Signature Date Printed Name and Credentials Clinical Instructor Signature Printed Name and Credentials
--- NOTE | 2024-12-24 11:34 | PT.OTN ---
Current Diagnoses Bilateral primary osteoarthritis of hip (12/24/24) Pain in right hip (12/24/24) Pain in left hip (12/24/24) Spondylosis without myelopathy or radiculopathy, lumbar region (12/24/24) Physical Therapy Treatment Note PT-OP-A Visit Information Start: 10/07/24 16:49 Freq: Status: Active Protocol: Document 12/24/24 10:47 [facility] (Rec: 12/24/24 11:34 [facility] [id number]) Out-Patient Physical Therapy Visit Information Visit Information Visit Type Treatment Note Visit Start Time 10:48 Visit Stop Time 11:28 Visit Number 9 (12/07) Number of ASSOCIATE PROFESSOR OF ENGLISH Visits 0 PT-OP-B Current Condition Start: 10/07/24 16:49 Freq: Status: Active Protocol: Document 10/12/24 13:02 [facility] (Rec: 10/12/24 13:42 [facility] [id number]) Current Condition History of Current Condition Onset Date 1 year or more Current Complaints LBP, L hip pain, B knee pain History of Current Condition Pt reports she just had assessments on her knees from ortho and said she could have replacement but could wait until has more pain. They aren 't bothering her too much. She wants strength for her knees to avoid gving out and avoid surgery. Whenever she goes for a walk w/ and her back hurts. She can sit down for 3 -5 min then can keep walking, or when doing dishes for 10-15 min, back will start bothering her (LS). Been noticing the past 4-6 months sitting a while, kala will get pain in L ant hip. Was told she does have some arthritis in hips. Last year saw Rosio and has been going to [employer] gym and use the resistance machines for shoulder then it keeps the shoulders functional. When she walks it is a max of 30 min d/t her back tolerance (after 15 min starts to feel uncomfortable). Has been for about a year. Occ times she goes longer and feels okay, but unsure why it sometimes doesnt bother her but now happening more regularly. When first move [facility] 5 years ago, used to go for 1-1.5 hr hikes . Occ w/up/down hills, R knee feels painful and weak/gives out. ON the way down last year going down hill, R knee gave out and had to grab ahold of . has leg length difference. Wear 1/2 in lift in L side and wears custom insoles PMH: diabetes, neuropathy ( minor), thyroid disorder, 2 seizures in 2008 and was on meds short time only. Treatment Goals Patient/Caregiver Goals improved walking (be able to do hour walks occasionally) without pain and standing tolerance, improve strength and extend life of B knees PT-OP-C Subjective Start: 10/07/24 16:49 Freq: Status: Active Protocol: Document 12/24/24 10:47 [facility] (Rec: 12/24/24 11:34 [facility] [id number]) OP-PT Subjective Patient Comments Patient Comments Pt feels edu for gym has been helpful. She only got in on saturday. PT-OP-D Balance Start: 10/07/24 16:49 Freq: Status: Active Protocol: Document 10/12/24 13:02 [facility] (Rec: 10/12/24 13:42 [id number] Balance Tests Single Limb Standing Single Limb- Right 3 sec, significant hip drop Single Limb- Left 4 sec PT-OP-G Mobility & Gait Start: 10/07/24 16:49 Freq: Status: Active Protocol: Document 10/12/24 13:02 [facility] (Rec: 10/12/24 13:42 [facility] [id number]) OP Gait Assessment Comments Gait Comments dec RLE stance time, lat lean B, R trendelenburg, stiff in upper body PT-OP-J Posture/Palpation/Skin Start: 10/07/24 16:49 Freq: Status: Active Protocol: Document 12/17/24 10:46 [facility] (Rec: 12/17/24 12:32 [facility] [id number]) Posture Evaluation [facility] Postural Classification System Lumbar Protective Mechanism Left AP 1 Lumbar Protective Mechanism Right AP 2 Lumbar Protective Mechanism Left PA 3 Lumbar Protective Mechanism Right PA 3 PT-OP-K Range of Motion Start: 10/07/24 16:49 Freq: Status: Active Protocol: Document 10/12/24 13:02 [facility] (Rec: 10/12/24 13:42 [facility] [id number]) Lumbar Spine Range of Motion Lumbar Spine Active Percentage Flexion 20 Extension 50 Rotation Left 35 Rotation Right 50 Lateral Flexion Left 70 Lateral Flexion Right 60 Comments to midshins w/flex w/hips; blocked hips to upper mid thighs, stiffness w/flex; pinching R>L SB, pain in abdomen w/r rot PT-OP-L Special Tests Start: 10/07/24 16:49 Freq: Status: Active Protocol: Document 10/12/24 13:02 [facility] (Rec: 10/12/24 13:42 [facility] [id number]) Special Tests Lumbar Spine Special Tests march Test Results pos Slump Test Results neg PT-OP-M Strength Start: 10/12/24 13:40 Freq: Status: Active Protocol: Document 12/17/24 10:46 [facility] (Rec: 12/17/24 12:32 [facility] [id number]) Hip Strength Hip Manual Muscle Testing Right Flexion (L2) 4+ Good+ Extension (S1) 5 Normal Abduction 4 Good Adduction 5 Normal External Rotation 5 Normal Internal Rotation 5 Normal Left Flexion (L2) 4+ Good+ Extension (S1) 4+ Good+ Abduction 5 Normal Adduction 5 Normal External Rotation 5 Normal Internal Rotation 5 Normal Knee Strength Knee Manual Muscle Testing Right Flexion (S2) 5 Normal Extension (L3) 5 Normal Left Flexion (S2) 5 Normal Extension (L3) 5 Normal PT-OP-Q Treatments Start: 10/07/24 16:49 Freq: Status: Active Protocol: Document 12/24/24 10:47 [facility] (Rec: 12/24/24 11:34 [facility] [id number]) Gym Equipment Cable Column (Body Solid) Lat Pull Down Details cues Resistance 2 Reps/Time 10 row Details standing Resistance 1 Reps/Time 15 paloff press Resistance 1 (both handles) Reps/Time x10 ea Manual Therapy Treatment Consent Patient gave verbal consent for manual Yes treatment Soft Tissue Mobilization back Body Location B along SI, QL and paraspinals Mobilization Type Rolling Joint Mobilizations innominate Comments R caudal, L flex, R ER supine c/r hip Comments R IR hip on axis c/r ; L inf glide PT-OP-T Assessment and Plan Start: 10/07/24 16:49 Freq: Status: Active Protocol: Document 12/24/24 10:47 [facility] (Rec: 12/24/24 11:34 [facility] [id number]) Physical Therapy Assessment Goals Six Impairment strength Short Term Goal (STG) Pt will be indep w/HEP 11/23-doing well w/gym program STG Duration 11/13 Halfway Goal (LTG) Pt will score at least 3/5 on LPM and at least 4+/5 on all BLE MMT to allow greater ease w/typical activities 12/17-improving LTG Duration 01/19 Five Impairment walking only max 30 min RT Short Term Goal (STG) Pt will be able to do 30 min RT walk w/o pain >3/10 11/23- 30 to 35 min walks 4/12/17-30-40 min -feels like has to sit down after walking STG Duration 01/07 Traffic Supervisor Goal (LTG) Pt will be able to do occasional 45 min to 1 hour walks w/small hills w/o pain greater than 2/10 in back or knees LTG Duration 01/26 Four Impairment . Halfway Goal (LTG) Pt will be able to stand as needed in kitchen w/o pain in back/knees >2/10 11/23-about 30 min in the kitchen before backfeels tired 12/17-still limited and feels like has to go sit down LTG Duration 02/11 Assessment Summary Assessment Pt feels looser upon leaving w /greater ease w/walking. She had imrpoved form with exercises and requierd less cueing Physical Therapy Plan Frequency and Duration Frequency of Treatment 1x/Week Duration of treatment (weeks) 8 Plan of Care Start Date 12/17/24 Plan of Care End Date 02/11/25 Next Visit Focus/Plan Next Note Type Treatment Note Next Visit Plan manualt o improve spinal alignment. review exercises as needed; check into if pt has actual leg length difference
--- NOTE | 2025-02-09 15:06 | PT.OPDS ---
Current Diagnoses Bilateral primary osteoarthritis of hip (12/24/24) Pain in right hip (12/24/24) Pain in left hip (12/24/24) Spondylosis without myelopathy or radiculopathy, lumbar region (12/24/24) Visit Care Team Role Provider Type Joesph Martinez MD Family Provider Physician Primary Care Provider Specialty: Internal Medicine Address: [address] [place] [address], [facility] [address], [place], [address] Email: [email or web address] DO Attending Provider Non-Staff Referring Provider Specialty: Orthopedics Address: [address] [place] [address], [place], [address] Email: Visit Number Visit Number 9 (12/07) Discharge Summary PT-OP-B Current Condition Start: 10/07/24 16:49 Freq: Status: Active Protocol: Document 10/12/24 13:02 [facility] (Rec: 10/12/24 13:42 [facility] [id number]) Current Condition History of Current Condition Onset Date 1 year or more Current Complaints LBP, L hip pain, B knee pain History of Current Condition Pt reports she just had assessments on her knees from ortho and said she could have replacement but could wait until has more pain. They aren 't bothering her too much. She wants strength for her knees to avoid gving out and avoid surgery. Whenever she goes for a walk w/ and her back hurts. She can sit down for 3 -5 min then can keep walking, or when doing dishes for 10-15 min, back will start bothering her (LS). Been noticing the past 4-6 months sitting a while, kala will get pain in L ant hip. Was told she does have some arthritis in hips. Last year saw Rosio and has been going to [employer] [facility] and use the resistance machines for shoulder then it keeps the shoulders functional. When she walks it is a max of 30 min d/t her back tolerance (after 15 min starts to feel uncomfortable). Has been for about a year. Occ times she goes longer and feels okay, but unsure why it sometimes doesnt bother her but now happening more regularly. When first move [place] 5 years ago, used to go for 1-1.5 hr hikes . Occ w/up/down hills, R knee feels painful and weak/gives out. ON the way down last year going down hill, R knee gave out and had to grab ahold of . has leg length difference. Wear 1/2 in lift in L side and wears custom insoles PMH: diabetes, neuropathy ( minor), thyroid disorder, 2 seizures in 2008 and was on meds short time only. Treatment Goals Patient/Caregiver Goals improved walking (be able to do hour walks occasionally) without pain and standing tolerance, improve strength and extend life of B knees PT-OP-C Subjective Start: 10/07/24 16:49 Freq: Status: Active Protocol: Document 12/24/24 10:47 [facility] (Rec: 12/24/24 11:34 [facility] [id number]) OP-PT Subjective Patient Comments Patient Comments Pt feels edu for gym has been helpful. She only got in on saturday. PT-OP-D Balance Start: 10/07/24 16:49 Freq: Status: Active Protocol: Document 10/12/24 13:02 [facility] (Rec: 10/12/24 13:42 [facility] [id number]) Balance Tests Single Limb Standing Single Limb- Right 3 sec, significant hip drop Single Limb- Left 4 sec PT-OP-G Mobility & Gait Start: 10/07/24 16:49 Freq: Status: Active Protocol: Document 10/12/24 13:02 [facility] (Rec: 10/12/24 13:42 [facility] [id number]) OP Gait Assessment Comments Gait Comments dec RLE stance time, lat lean B, R trendelenburg, stiff in upper body PT-OP-J Posture/Palpation/Skin Start: 10/07/24 16:49 Freq: Status: Active Protocol: Document 12/17/24 10:46 [facility] (Rec: 12/17/24 12:32 [facility] [id number]) Posture Evaluation [facility] Postural Classification System Lumbar Protective Mechanism Left AP 1 Lumbar Protective Mechanism Right AP 2 Lumbar Protective Mechanism Left PA 3 Lumbar Protective Mechanism Right PA 3 PT-OP-K Range of Motion Start: 10/07/24 16:49 Freq: Status: Active Protocol: Document 10/12/24 13:02 [facility] (Rec: 10/12/24 13:42 [facility] [id number]) Lumbar Spine Range of Motion Lumbar Spine Active Percentage Flexion 20 Extension 50 Rotation Left 35 Rotation Right 50 Lateral Flexion Left 70 Lateral Flexion Right 60 Comments to midshins w/flex w/hips; blocked hips to upper mid thighs, stiffness w/flex; pinching R>L SB, pain in abdomen w/r rot PT-OP-L Special Tests Start: 10/07/24 16:49 Freq: Status: Active Protocol: Document 10/12/24 13:02 [facility] (Rec: 10/12/24 13:42 [facility] [id number]) Special Tests Lumbar Spine Special Tests march Test Results pos Slump Test Results neg PT-OP-M Strength Start: 10/12/24 13:40 Freq: Status: Active Protocol: Document 12/17/24 10:46 [facility] (Rec: 12/17/24 12:32 [facility] [id number]) Hip Strength Hip Manual Muscle Testing Right Flexion (L2) 4+ Good+ Extension (S1) 5 Normal Abduction 4 Good Adduction 5 Normal External Rotation 5 Normal Internal Rotation 5 Normal Left Flexion (L2) 4+ Good+ Extension (S1) 4+ Good+ Abduction 5 Normal Adduction 5 Normal External Rotation 5 Normal Internal Rotation 5 Normal Knee Strength Knee Manual Muscle Testing Right Flexion (S2) 5 Normal Extension (L3) 5 Normal Left Flexion (S2) 5 Normal Extension (L3) 5 Normal PT-OP-T Assessment and Plan Start: 10/07/24 16:49 Freq: Status: Active Protocol: Document 02/09/25 15:05 [facility] (Rec: 02/09/25 15:06 [facility] [id number]) Physical Therapy Assessment Goals Six Impairment strength Short Term Goal (STG) Pt will be indep w/HEP 11/23-doing well w/gym program STG Duration 11/13 Skilled Nursing Goal (LTG) Pt will score at least 3/5 on LPM and at least 4+/5 on all BLE MMT to allow greater ease w/typical activities 12/17-improving LTG Duration 01/19 Five Impairment walking only max 30 min RT Short Term Goal (STG) Pt will be able to do 30 min RT walk w/o pain >3/10 11/23- 30 to 35 min walks 412/17-30-40 min -feels like has to sit down after walking STG Duration 01/07 Hoist Worker Goal (LTG) Pt will be able to do occasional 45 min to 1 hour walks w/small hills w/o pain greater than 2/10 in back or knees LTG Duration 01/26 Four Impairment . Hoist Worker Goal (LTG) Pt will be able to stand as needed in kitchen w/o pain in back/knees >2/10 11/23-about 30 min in the kitchen before backfeels tired 12/17-still limited and feels like has to go sit down LTG Duration 02/11 Assessment Summary Assessment pt last seen by PT 46 days. Was to schedule further visits , but made no further follow ups. She was doing well with gym w/cues only needed for a few exercises, but was otherwise indep w/this. She did see improvement in strength during her time w/PT. DC d/t no longer attending PT . Physical Therapy Plan Discharge Physical Therapy Discharge Reasons No Longer Attending PT
== END 2025-02-16 09:44 | disposition home or self-care (01) ==
LOC: PHYS 10:45
PROVIDERS: Family Provider Internal Medicine; PCP Internal Medicine; Referring Provider Orthopaedic Surgery; Visit Provider Orthopaedic Surgery
DX: M25.551 Pain in right hip (principal); M25.552 Pain in left hip; M16.0 Bilateral primary osteoarthritis of hip; M47.816 Spondylosis without myelopathy or radiculopathy, lumbar region
CPT/HCPCS: 97110; 97140; 97162; 97535

== ENCOUNTER → 2025-01-07 08:10 | Outpatient (CLI) | payer MEDICARE, SELFPAY ==
--- NOTE | 2025-01-07 08:11 | DI.US.S_ITS ---
PROCEDURE: US ABDOMEN LIMITED INDICATIONS: right upper quadrant pain TECHNIQUE: Real-time scanning was performed of the abdominal and retroperitoneal organs, with image documentation. COMPARISON: [facility], CT, CT ABDOMEN PELVIS W CON, 11/25/2024, 11:06. [facility], US, US ABDOMEN LIMITED, 10/08/2024, 7:47. FINDINGS: Liver: Measures 17.2 cm. Increased in echogenicity. Portal vein is prominent. Gallbladder: No gallstones. No wall thickening. No pericholecystic edema. Negative sonographic Morton's sign. Biliary ducts: Intrahepatic bile ducts are non-dilated. Extrahepatic bile duct caliber measures 4 mm. Normal is 6-7 mm or less in diameter, or 10 mm or less post-cholecystectomy. Pancreas: Visualized portions of the pancreas are sonographically normal. Tail is not well seen. Miscellaneous: No free abdominal fluid. IMPRESSION: 1. No acute cholecystitis. No gallstones. 2. Increased hepatic echogenicity most consistent with hepatic steatosis. Other forms of hepatocellular disease could have similar appearance. Dictated by: Andrez Swan M.D. on 01/07/2025 at 17:06 Approved by: Andrez Swan M.D. on 01/07/2025 at 17:11
== END ==
PROVIDERS: Family Provider Internal Medicine; PCP Internal Medicine; Referring Provider Surgery; Visit Provider Surgery
DX: R10.11 Right upper quadrant pain (principal)
CPT/HCPCS: 76705

== ENCOUNTER → 2025-02-16 11:49 | Outpatient (CLI) | payer MEDICARE, SELFPAY ==
[2025-02-16 12:39] LABS: COVID-19 CEPHEID 4-PLEX PCR Negative (Negative); Influenza A - CEPHEID Flu A NEGATIVE (NEGATIVE); Influenza B - CEPHEID Flu B NEGATIVE (NEGATIVE); Respiratory Syncytial Virus Negative (Negative)
== END ==
PROVIDERS: Family Provider Internal Medicine; PCP Internal Medicine; Visit Provider Internal Medicine
DX: R05.9 Cough, unspecified (principal); J02.9 Acute pharyngitis, unspecified
CPT/HCPCS: 0241U

== ENCOUNTER → 2025-03-02 10:15 | Outpatient (CLI) | payer MEDICARE, SELFPAY ==
[2025-03-02 11:08] LABS: Add Manual Diff / Slide Review NO; Basophils Absolute Auto 100 /uL (0-100); Basophils Percent Auto 0.9 % (0-2); Eosinophils Absolute Auto 200 /uL (0-450); Eosinophils Percent Auto 2.6 % (2-4); Hematocrit 38.7 % (36-46); Lymphocytes Absolute Auto 1300 /uL (1100-4500); Lymphocytes Percent Auto 18.8 % (25-40); Mean Corpuscular HGB Conc 33.6 % (30-36); Mean Corpuscular Hemoglobin 28.7 PG (26-34); Mean Corpuscular Volume 85.5 fL (80-100); Monocytes Absolute Auto 400 /uL (0-900); Monocytes Percent Auto 5.5 % (3-14); Neutrophils Absolute Auto 5100 /uL (1500-7000); Neutrophils Percent Auto 72.2 % (50-75); Platelet Count 282 X10^3/uL (150-400); Red Blood Cell Count 4.53 X10^6/uL (4.0-5.2); Red Cell Distribution Width 13.5 % (11.6-14.8); White Blood Cell Count 7.1 X10^3/uL (4.5-11.0)
[2025-03-02 11:16] LABS: Hemoglobin A1C% w Est Avg Glu 8.9 % (4.0-6.0)
[2025-03-02 11:21] LABS: Alanine Aminotransferase 31 IU/L (<35); Albumin 4.2 g/dL (3.5-5.0); Albumin Globulin Ratio 1.6 (1.0-2.8); Alkaline Phosphatase 125 U/L (38-126); Aspartate Aminotransferase 28 IU/L (14-36); BUN Creatinine Ratio 26.9 (6-22); Bilirubin Total 0.5 mg/dL (0.2-1.3); Blood Urea Nitrogen 18 mg/dL (7-17); Calcium 9.7 mg/dL (8.4-10.2); Carbon Dioxide 24 mmol/L (22-32); Chloride 104 mmol/L (98-107); Cholesterol 215 mg/dL (140-199); Estimated Glomerular Filt Rate > 60 mL/min (>60); Globulin 2.6 g/dL (1.7-4.1); Glucose 244 mg/dL (70-99); HDL Cholesterol 53 mg/dL (40-60); HEMOLYSIS < 15 (0-50); LDL Cholesterol Calculated 145 mg/dL (<100); Potassium 4.9 mmol/L (3.4-5.1); Sodium 138 mmol/L (137-145); Total Protein 6.8 g/dL (6.3-8.2); Triglycerides 87 mg/dL (35-150)
[2025-03-02 11:40] LABS: Free T3, Triiodothyronine Free 3.72 pg/mL (2.77-5.27); Free T4, Direct Thyroxine 1.17 ng/dL (0.78-2.19)
[2025-03-02 11:54] LABS: Thyroid Stimulating Hormone 5.46 uIU/mL (0.47-4.68)
== END ==
PROVIDERS: Family Provider Internal Medicine; PCP Internal Medicine; Referring Provider Internal Medicine; Visit Provider Internal Medicine
DX: E03.9 Hypothyroidism, unspecified (principal); E11.9 Type 2 diabetes mellitus without complications; M54.9 Dorsalgia, unspecified; G89.29 Other chronic pain
CPT/HCPCS: 36415; 80053; 80061; 83036; 84439; 84443; 84481; 85025

== ENCOUNTER → 2025-03-29 16:24 | Outpatient (CLI) | payer MEDICARE, SELFPAY ==
[2025-03-29 17:19] LABS: Influenza A - CEPHEID Flu A NEGATIVE (NEGATIVE); Influenza B - CEPHEID Flu B NEGATIVE (NEGATIVE); Respiratory Syncytial Virus Negative (Negative)
[2025-03-29 17:23] LABS: COVID-19 CEPHEID 4-PLEX PCR Negative (Negative)
== END ==
LOC: LAB 16:25
PROVIDERS: Family Provider Internal Medicine; PCP Internal Medicine; Visit Provider Internal Medicine
DX: J02.9 Acute pharyngitis, unspecified (principal); B34.9 Viral infection, unspecified
CPT/HCPCS: 0241U

== ENCOUNTER → 2025-04-20 08:55 | Outpatient (CLI) | payer MEDICARE, SELFPAY ==
[2025-04-20 11:24] LABS: Urine Volume 10mL (spun)
[2025-04-20 11:26] LABS: Bacteria Urine None Seen; Culture Indicated Urine Cult Not Indicated; RBC Urine None Seen (0-5/HPF); Squamous Epithelial Cell Urine 1-5 /HPF (0-5/HPF); WBC Urine None Seen (0-5/HPF)
== END ==
PROVIDERS: Family Provider Internal Medicine; PCP Internal Medicine; Visit Provider Obstetrics & Gynecology Gynecology
DX: N39.41 Urge incontinence (principal)
CPT/HCPCS: 81015

== ENCOUNTER → 2025-06-02 08:35 | Outpatient (CLI) | payer MEDICARE, SELFPAY ==
[2025-06-02 09:48] LABS: Hemoglobin A1C% w Est Avg Glu 7.8 % (4.0-6.0)
[2025-06-02 09:52] LABS: Alanine Aminotransferase 24 IU/L (<35); Albumin 4.2 g/dL (3.5-5.0); Albumin Globulin Ratio 1.6 (1.0-2.8); Alkaline Phosphatase 134 U/L (38-126); Blood Urea Nitrogen 25 mg/dL (7-17); Calcium 9.5 mg/dL (8.4-10.2); Carbon Dioxide 21 mmol/L (22-32); Chloride 105 mmol/L (98-107); Cholesterol 191 mg/dL (140-199); Estimated Glomerular Filt Rate > 60 mL/min (>60); Globulin 2.7 g/dL (1.7-4.1); Glucose 227 mg/dL (70-99); HDL Cholesterol 50 mg/dL (40-60); HEMOLYSIS < 15 (0-50); Potassium 4.6 mmol/L (3.4-5.1); Sodium 137 mmol/L (137-145); Total Protein 6.9 g/dL (6.3-8.2); Triglycerides 133 mg/dL (35-150)
== END ==
PROVIDERS: Family Provider Internal Medicine; PCP Internal Medicine; Referring Provider Internal Medicine; Visit Provider Internal Medicine
DX: E11.9 Type 2 diabetes mellitus without complications (principal); E78.2 Mixed hyperlipidemia
CPT/HCPCS: 36415; 80053; 80061; 83036

== ENCOUNTER → 2025-07-20 15:54 | Outpatient (CLI) | payer MEDICARE, SELFPAY ==
[2025-07-20 16:23] LABS: Add Manual Diff / Slide Review NO; Hematocrit 36.6 % (36-46); Hemoglobin 12.6 g/dL (12.0-16.0); Lymphocytes Absolute Auto 1500 /uL (1100-4500); Mean Corpuscular HGB Conc 34.5 % (30-36); Mean Corpuscular Hemoglobin 29.4 PG (26-34); Mean Corpuscular Volume 85.1 fL (80-100); Platelet Count 273 X10^3/uL (150-400)
[2025-07-20 16:42] LABS: Alanine Aminotransferase 27 IU/L (<35); Albumin 4.1 g/dL (3.5-5.0); Albumin Globulin Ratio 1.5 (1.0-2.8); Alkaline Phosphatase 132 U/L (38-126); Blood Urea Nitrogen 20 mg/dL (7-17); Calcium 9.2 mg/dL (8.4-10.2); Carbon Dioxide 25 mmol/L (22-32); Chloride 101 mmol/L (98-107); Estimated Glomerular Filt Rate > 60 mL/min (>60); Globulin 2.7 g/dL (1.7-4.1); Glucose 310 mg/dL (70-99); HEMOLYSIS < 15 (0-50); Potassium 4.3 mmol/L (3.4-5.1); Sodium 133 mmol/L (137-145); Total Protein 6.8 g/dL (6.3-8.2)
[2025-07-20 16:58] LABS: Free T3, Triiodothyronine Free 3.74 pg/mL (2.77-5.27); Free T4, Direct Thyroxine 1.25 ng/dL (0.78-2.19)
[2025-07-20 17:12] LABS: Thyroid Stimulating Hormone 3.88 uIU/mL (0.47-4.68)
== END ==
PROVIDERS: PCP Internal Medicine; Referring Provider Internal Medicine; Visit Provider Internal Medicine
DX: E78.2 Mixed hyperlipidemia (principal); E03.9 Hypothyroidism, unspecified; E11.9 Type 2 diabetes mellitus without complications; Z79.4 Long term (current) use of insulin; D64.9 Anemia, unspecified
CPT/HCPCS: 36415; 80053; 84439; 84443; 84481; 85025

== ENCOUNTER → 2025-09-01 08:44 | Outpatient (CLI) | payer MEDICARE, SELFPAY ==
[2025-09-01 10:01] LABS: Hemoglobin A1C% w Est Avg Glu 8.2 % (4.0-6.0)
[2025-09-01 10:32] LABS: Microalbumi Creatinin Ratio Ur 19.0 ug/mg CR (<30)
== END ==
PROVIDERS: PCP Internal Medicine; Referring Provider Internal Medicine; Visit Provider Internal Medicine
DX: E11.9 Type 2 diabetes mellitus without complications (principal); E78.2 Mixed hyperlipidemia; E03.9 Hypothyroidism, unspecified; Z79.4 Long term (current) use of insulin
CPT/HCPCS: 36415; 82043; 82570; 83036

== ENCOUNTER → 2025-09-06 14:12 | Outpatient (CLI) | payer MEDICARE, SELFPAY ==
--- NOTE | 2025-09-06 14:13 | DI.RAD.S_ITS ---
PROCEDURE: XR DEXA AXIAL SKELETON
== END ==
LOC: RAD 14:13
PROVIDERS: PCP Internal Medicine; Referring Provider Physician Assistant; Visit Provider Physician Assistant
DX: Z78.0 Asymptomatic menopausal state (principal)
CPT/HCPCS: 77080

== ENCOUNTER → 2025-10-03 11:11 | Outpatient (CLI) | payer MEDICARE, SELFPAY ==
[2025-10-03 12:22] LABS: COVID-19 CEPHEID 4-PLEX PCR Negative (Negative); Influenza A - CEPHEID Flu A NEGATIVE (NEGATIVE); Influenza B - CEPHEID Flu B NEGATIVE (NEGATIVE)
== END ==
PROVIDERS: PCP Internal Medicine; Visit Provider Registered Nurse
DX: J02.9 Acute pharyngitis, unspecified (principal); R05.1 Acute cough
CPT/HCPCS: 87070; 87637

== ENCOUNTER → 2025-10-03 11:47 | Outpatient (CLI) | payer MEDICARE, SELFPAY ==
--- NOTE | 2025-10-03 11:49 | DI.RAD.S_ITS ---
PROCEDURE: XR CHEST 2V INDICATIONS: Cough and fatigue TECHNIQUE: 2 views of the chest were acquired. COMPARISON: None. FINDINGS: Surgical changes and devices: None. Lungs and pleura: Lungs are clear. No pleural effusions or pneumothorax. Mediastinum: Mediastinal contours are normal. Heart size is normal. Bones and chest wall: No suspicious bony abnormalities. Soft tissues appear unremarkable. IMPRESSION: No acute cardiopulmonary abnormality is seen. Dictated by: Noel Jane M.D. on 10/03/2025 at 13:08 Approved by: Noel Jane M.D. on 10/03/2025 at 13:09
== END ==
PROVIDERS: PCP Internal Medicine; Referring Provider Internal Medicine; Visit Provider Chiropractor
DX: J02.9 Acute pharyngitis, unspecified (principal); R05.1 Acute cough
CPT/HCPCS: 71046; 87070; 87637

== ENCOUNTER → 2025-10-07 15:05 | Outpatient (CLI) | payer MEDICARE, SELFPAY | PROVIDERS: PCP Internal Medicine; Referring Provider Internal Medicine; Visit Provider Nurse Practitioner Family | DX: R35.0 Frequency of micturition (principal) | CPT/HCPCS: 87086 ==

== ENCOUNTER → 2025-10-08 13:20 | Outpatient (CLI) | payer MEDICARE, SELFPAY ==
--- NOTE | 2025-10-08 13:20 | DI.CT.S_ITS ---
PROCEDURE: CT ABDOMEN PELVIS W CON INDICATIONS: right flank pain TECHNIQUE: After the administration of intravenous contrast, axial sections acquired from the lung bases to the pubic symphysis. Coronal and sagittal reformats were performed. For radiation dose reduction, the following was used: automated exposure control, adjustment of mA and/or kV according to patient size. COMPARISON: [facility], CT, CT ABDOMEN PELVIS W CON, 11/25/2024, 11:06. FINDINGS: Image quality: Diagnostic. Lower Chest: No significant findings. ABDOMEN: Liver: No solid mass. Steatosis. Liver measures 24.1 cm Gallbladder: No radiopaque gallstones or wall thickening. Biliary ducts: No biliary dilation. Pancreas: No ductal dilation. Spleen: Size is within normal limits. Adrenal Glands: No adrenal nodules. Kidneys and Ureters: No hydronephrosis. No solid mass. No complex renal cystic lesion which requires follow up. No nephrolithiasis. Stomach and Bowel: Appendix is slightly prominent appearance with appendicoliths. No surrounding inflammatory change. It is less prominent when compared to prior exam. Nonspecific mild fluid-filled small bowel loops. Peritoneum: No abnormal intraperitoneal fluid. No free air. Ventral Wall: No significant ventral hernia. Abdominal Nodes: No retroperitoneal or mesenteric adenopathy by size criteria. Vessels: Aorta and inferior vena cava are normal in size. PELVIS: Pelvic Organs: Unremarkable. Bladder: No bladder wall thickening, accounting for underdistention. Pelvic Nodes: No enlarged lymph nodes. Miscellaneous: No inguinal hernias are seen. Bones: No aggressive osseous abnormality. IMPRESSION: Mildly prominent appearance of the appendix without inflammatory change although less prominent when compared to 11/25/2024. Dictated by: Isabella Mansfield M.D. on 10/08/2025 at 15:22 Approved by: Isabella Mansfield M.D. on 10/08/2025 at 15:25
[2025-10-08 14:04] LABS: Estimated Glomerular Filt Rate > 60 mL/min (>60)
== END ==
LOC: CT 13:20
PROVIDERS: Radiology Diagnostic Radiology; PCP Internal Medicine; Referring Provider Internal Medicine; Visit Provider Nurse Practitioner Family
DX: R10.A1 Flank pain, right side (principal); K76.0 Fatty (change of) liver, not elsewhere classified
CPT/HCPCS: 36415; 74177; 82565; Q9967

== ENCOUNTER → 2025-10-11 11:34 | Outpatient (CLI) | payer MEDICARE, SELFPAY | PROVIDERS: PCP Internal Medicine; Referring Provider Nurse Practitioner Family; Visit Provider Nurse Practitioner Family | DX: R10.A0 Flank pain, unspecified side (principal) | CPT/HCPCS: 87086 ==